=== PATIENT | male | born 1940 | race Caucasian/White ===

== ENCOUNTER 2019-04-22 12:52 | Outpatient (CLI) | payer OTHER, SELFPAY ==
[2019-04-22 13:28] LABS: Abs Immature Grans 0.01 k/cumm (0.0-0.09); Absolute Eosinophil Count 0.69 k/cumm (0.0-0.7); Absolute Lymphocyte Count 1.82 k/cumm (1.2-3.4); Absolute Monocyte Count 0.57 k/cumm (0.11-0.7); Absolute Neutrophil Count 3.48 k/cumm (1.2-6.7); Basophils % 1.5; Eosinophils % 10.3; HCT 43.6 % (40.0-50.0); HGB 14.7 g/dL (13.5-17.5); Immature Grans % 0.1 %; Lymphocytes % 27.3; Mean Corp. HGB Concentration 33.7 g/dL (32.0-36.0); Mean Corpuscular Hemoglobin 33.5 pg (27.0-33.0); Mean Corpuscular Volume 99.3 fL (80-95); Mean Platelet Volume 10.2 fL (8.0-11.0); Monocytes % 8.5; Neutrophils % 52.3; Platelet Count 248 x1000/uL (130-400); RBC 4.39 m/cumm (4.50-6.00); RBC Distribution Width 12.4 % (11.8-14.1); White Blood Cell Count 6.67 k/cumm (4.4-10.8)
[2019-04-22 14:15] LABS: Anion Gap 6.5 mmol/L (3-11); BUN 11 mg/dL (7-18); CO2 28.5 mmol/L (21.0-32.0); Calcium 8.8 mg/dL (8.5-10.1); Chloride 101 mmol/L (98-107); Glucose 79 mg/dL (74-106); Potassium 3.7 mmol/L (3.5-5.1); Sodium 136 mmol/L (136-145)
== END 2019-04-22 13:12 ==
PROVIDERS: Visit Provider Neurological Surgery
DX: Z01.818 Encounter for other preprocedural examination (principal)
CPT/HCPCS: 36415; 80048; 85025

== ENCOUNTER 2019-11-10 08:39 | Outpatient (REF) | payer SELFPAY ==
[2019-11-10 10:52] LABS: Bilirubin Negative (Negative); Blood Negative (Negative); Clarity Sl Cloudy (Clear); Glucose Negative (Negative); Ketones Negative (Negative); Leukocyte Esterase Negative (Negative); Nitrite Negative (Negative); pH 7.5 (5-8)
== END 2019-11-10 08:59 ==
LOC: LBN 08:39
PROVIDERS: Visit Provider Family Medicine
DX: N40.0 Benign prostatic hyperplasia without lower urinary tract symptoms (principal); R82.998 Other abnormal findings in urine
CPT/HCPCS: 81003; 87086

== ENCOUNTER 2019-11-15 14:11 | Outpatient (REF) | payer SELFPAY ==
[2019-11-16 18:37] LABS: COVID-19 RT-PCR Result Not Detected ((See Note))
== END 2019-11-15 14:31 ==
LOC: LBN 14:11
PROVIDERS: PCP Family Medicine; Visit Provider Nurse Practitioner Adult Health
DX: Z11.59 Encounter for screening for other viral diseases (principal)
CPT/HCPCS: U0003

== ENCOUNTER 2019-11-21 16:33 | Outpatient (REF) | payer SELFPAY ==
[2019-11-23 16:26] LABS: COVID-19 RT-PCR Result Not Detected ((See Note))
== END 2019-11-21 16:53 ==
LOC: LBN 16:33
PROVIDERS: PCP Family Medicine; Visit Provider Nurse Practitioner Adult Health
DX: Z11.59 Encounter for screening for other viral diseases (principal)
CPT/HCPCS: U0003

== ENCOUNTER 2020-02-23 12:13 | Outpatient (REF) | payer OTHER, SELFPAY ==
[2020-02-23 12:58] LABS: Abs Immature Grans 0.01 10^3/uL (0.0-0.06); Absolute Basophil Count 0.09 10^3/uL (0.0-0.2); Absolute Eosinophil Count 0.82 10^3/uL (0.0-0.7); Absolute Lymphocyte Count 2.69 10^3/uL (1.2-3.4); Absolute Monocyte Count 0.48 10^3/uL (0.1-0.8); Absolute Neutrophil Count 3.35 10^3/uL (1.2-6.7); Basophils % 1.2; HCT 42.7 % (40.0-50.0); Immature Grans % 0.1; Lymphocytes % 36.2; MCH 33.3 pg (27.0-33.0); MCHC 32.8 % (32.0-36.0); MCV 101.7 fL (80-95); MPV 11.4 fL (8.0-11.0); Monocytes % 6.5; Nucleated RBC 0 %; Platelet Count 202 10^3/uL (130-400); RDW 12.5 % (11.8-14.1); WBC 7.44 10^3/uL (4.4-10.8)
[2020-02-23 13:01] LABS: Anion Gap 10.6 mmol/L (3-11); BUN 6 mg/dL (7-18); CO2 25.4 mmol/L (21.0-32.0); CREATININE 1.01 mg/dL (0.70-1.30); Chloride 105 mmol/L (98-107); Potassium 3.7 mmol/L (3.5-5.1); Sodium 141 mmol/L (136-145)
[2020-02-23 15:49] LABS: Bilirubin Negative (Negative); Blood Negative (Negative); Clarity Clear (Clear); Glucose Negative (Negative); Ketones Negative (Negative); Leukocyte Esterase Negative (Negative); Nitrite Negative (Negative); Specific Gravity 1.025 (1.005-1.025); Urobilinogen 0.2 EU/dL (Up TO 0.2); pH 6.5 (5-8)
[2020-02-23 16:11] LABS: Bacteria Negative HPF (Negative); C & S Indicated? C&S Done As Ordered; Crystals Negative HPF (Negative); Epithelial Cells Negative HPF (Negative); Mucus Heavy (Negative); RBC 0-2 HPF (0-2); WBC 0-2 HPF (0-5)
== END 2020-02-23 12:33 ==
LOC: LBN 12:13
PROVIDERS: PCP Family Medicine; Visit Provider Internal Medicine
DX: R33.9 Retention of urine, unspecified (principal); I10 Essential (primary) hypertension; I73.9 Peripheral vascular disease, unspecified; N40.0 Benign prostatic hyperplasia without lower urinary tract symptoms; K70.30 Alcoholic cirrhosis of liver without ascites
CPT/HCPCS: 80051; 84520; 81003; 81015; 82565; 85025; 87086

== ENCOUNTER 2020-03-15 15:14 | Outpatient (REF) | payer MEDICARE, SELFPAY ==
[2020-03-15 13:56] LABS: Abs Immature Grans 0.03 10^3/uL (0.0-0.06); Absolute Basophil Count 0.08 10^3/uL (0.0-0.2); Absolute Eosinophil Count 0.57 10^3/uL (0.0-0.7); Absolute Lymphocyte Count 1.97 10^3/uL (1.2-3.4); Absolute Monocyte Count 0.64 10^3/uL (0.1-0.8); Absolute Neutrophil Count 4.46 10^3/uL (1.2-6.7); Eosinophils % 7.4; HCT 41.1 % (40.0-50.0); HGB 13.6 g/dL (13.5-17.5); Immature Grans % 0.4; Lymphocytes % 25.4; MCH 33.4 pg (27.0-33.0); MCHC 33.1 % (32.0-36.0); MPV 11.2 fL (8.0-11.0); Monocytes % 8.3; Neutrophils % 57.5; Nucleated RBC 0 %; Platelet Count 181 10^3/uL (130-400); RBC 4.07 10^6/uL (4.36-5.78); RDW 12.7 % (11.8-14.1); RDW-SD 47.6 fL; WBC 7.75 10^3/uL (4.4-10.8)
[2020-03-15 14:15] LABS: Anion Gap 8.5 mmol/L (3-11); BUN 10 mg/dL (7-18); CO2 26.5 mmol/L (21.0-32.0); Chloride 102 mmol/L (98-107); Potassium 3.8 mmol/L (3.5-5.1); Sodium 137 mmol/L (136-145)
== END 2020-03-15 15:34 ==
LOC: LBN 15:14
PROVIDERS: PCP Family Medicine; Visit Provider Internal Medicine
DX: I10 Essential (primary) hypertension (principal); E78.5 Hyperlipidemia, unspecified; I73.9 Peripheral vascular disease, unspecified; J61 Pneumoconiosis due to asbestos and other mineral fibers
CPT/HCPCS: 80051; 84520; 82565; 85025

== ENCOUNTER 2020-03-31 12:24 | Outpatient (REF) | payer MEDICARE, SELFPAY ==
[2020-04-01 14:05] LABS: COVID-19 RT-PCR UVMMC Result Negative (Negative)
== END 2020-03-31 12:44 ==
LOC: LBN 12:24
PROVIDERS: PCP Family Medicine; Visit Provider Internal Medicine Gastroenterology
DX: Z11.59 Encounter for screening for other viral diseases (principal); Z01.818 Encounter for other preprocedural examination
CPT/HCPCS: U0003

== ENCOUNTER 2020-06-07 14:10 | Emergency (ER) | payer MEDICARE, OTHER, SELFPAY ==
[2020-06-07] VITALS (18 sets, daily range): BP systolic 121–139; BP diastolic 59–71; PULSE 65–93; RESP 14–23; TEMP 36.6–36.7; O2SAT 94–97
--- NOTE | 2020-06-07 14:00 | RT.EKG_ITS ---
APPROVED REPORT Exam: Resting ECG Patient Location: E HR:80 bpm ECG Measurements Heart Rate 80 AXIS NH 166 P 78 QRSd 97 QRS 65 QT 387 T 1 QTc 437 Conclusion Sinus rhythm...normal P axis, V-rate 60- 99 Atrial premature complexes...SV complexes w/ short R-R intvls. T wave inversion lead III. No STEMI. I have reviewed and interpreted ECG and agree with software generated interpretation.
--- NOTE | 2020-06-07 14:17 | ED.GENADUL_ITS ---
Discharge Plan Disposition Patient Disposition: HOME Condition: Stable Discharge Details Clinical Impression: Chest pain, Alcohol abuse Primary Care Provider: Jose Guadalupe Fernandes ED Provider: Kurtis Taylor Home Meds and New Rx's Prescriptions: New sucralfate [Carafate] 1 gram tablet 1 g PO BID 10 Days Qty: 20 RF: 0 Continued tramadol 50 MG tablet 50 mg PO BID PRNRF: 0 trazodone 100 MG tablet 300 mg PO HS RF: 0 amlodipine 10 MG tablet 10 mg PO DAILY RF: 0 omeprazole 20 MG capsule,delayed release(DR/EC) 40 mg PO DAILY RF: 0 docusate sodium [Colace] 100 MG capsule 100 mg PO TID RF: 0 folic acid 1 MG tablet 1 mg PO DAILY RF: 0 tamsulosin 0.4 mg Capsule 0.4 mg PO DAILY RF: 0 furosemide 20 mg tablet 20 mg PO DAILY RF: 0 albuterol sulfate 90 mcg/actuation Hfa Aerosol Inhaler 2 puff INHALATION QID PRNRF: 0 loratadine 10 mg Tablet 10 mg PO DAILY RF: 0 atorvastatin 10 MG tablet 10 mg PO DAILY RF: 0 aspirin [Children's Aspirin] 81 MG tablet,chewable 81 mg PO DAILY RF: 0 vitamin [id number] acid 1 EACH tablet, sublingual 1 tab PO DAILY RF: 0 multivitamin [Daily Multi-Vitamin] 1 EACH tablet 1 tab PO DAILY RF: 0 nitroglycerin [Nitrostat] 0.4 MG tablet, sublingual 0.4 mg Sublingual Q15MIN PRNQty: 21 RF: 0 lisinopril 10 MG tablet 10 mg PO DAILY RF: 0 Discharge Instructions Additional Instructions: Continue your efforts to decrease use of cigarillos and soda such as Pepsi. These both can irritate your esophagus. Avoid fatty, fried, spicy or tomato sauce-based foods. Please begin a trial of the medication and Carafate for 10 days, take with morning and evening meal. Continue your regular medications. Return to the ER for any acute concerns. Medical Decision Making <Rosario Almendarez DO - Last Filed: 06/07/20 15:19> 80-year-old male with a history of former alcohol abuse, GERD, hypertension, hyperlipidemia presents to the ED with a complaint of chest pain for the past few weeks, worse recently and now associated with dizziness. EKG on arrival notes a rate of 80, sinus, T wave inversion in lead III but no STEMI. Nondiagnostic. Vitals within normal limits. Patient has upper abdominal tenderness. History and presentation does not appear consistent with ACS. Differential diagnosis includes GI etiology, pneumonia. History and presentation not consistent with PE or dissection but considering patient's complaint of radiation of pain, will obtain a CTA chest and abdomen to rule out pneumonia, dissection, acute abdominal process. Will give a dose of morphine and Pepcid. Case endorsed to to follow-up on imaging results and plan for repeat troponin. If patient's symptoms are improving or resolved, and work-up negative, can discharge to home. Potassium 2.8, will replete. Magnesium 1.7 will replete. Trope negative. Lipase negative. Medical Records Medical records reviewed: Yes I reviewed the patient's medical records. Lab Data Lab results reviewed: Yes I reviewed the patient's lab results. ECG Data Attestation: I personally reviewed and interpreted this ECG (s) as follows: Interpretation: Rate of 80, sinus, T wave inversion in lead III. No acute ST elevation or depression. MA 166. QRS 97. QTc 437. <Kurtis Taylor MD - Last Filed: 06/07/20 18:13> Received signout from Dr. Almendarez. Please see her note regarding details of initial presentation, exam, plan of care. Patient's labs essentially reassuring, with the exception of hypokalemia and mild hypomagnesemia which were supplemented in the ED. Troponin negative. No acute findings in the chest on CT imaging. Note of chronic findings. Abdomen with note of cirrhotic liver nonobstructing kidney stones, collapsed penile prosthesis reservoir. See formal report. Patient improved. He was observed on a child care director with no further complaints. He was given Carafate as well. His repeat troponin was negative. I will start him on 10 days of Carafate and asked him to decrease use of cigarillos and Pepsi. We will ask emergency care attendant to arrange a follow-up for him with the [facility]. Lab Data Lab results reviewed: Yes I reviewed the patient's lab results. Labs: Laboratory Results - last 24 hr 06/07/20 06/07/20 06/07/20 14:30 14:30 14:30 WBC 9.36 RBC 4.29 L Hgb 14.3 Hct 41.4 MCV 96.5 H MCH 33.3 H MCHC 34.5 RDW 12.1 Plt Count 201 MPV 11.5 H Immature Gran % 0.3 Neutrophils % 59.9 Lymphocytes % 25.3 Monocytes % 7.9 Eosinophils % 5.7 Basophils % 0.9 Nucleated RBC % 0 Absolute Neutrophils 5.61 Absolute Lymphocytes 2.37 Absolute Monocytes 0.74 Absolute Eosinophils 0.53 Absolute Basophils 0.08 PT 10.0 INR 1.0 APTT 22.0 Sodium 141 Potassium 2.8 L* Chloride 106 Carbon Dioxide 27.5 Anion Gap 7.5 BUN 13 Creatinine 0.9 Estimated GFR/1.73 m2 >= 60.00 Glucose 103 Calcium 9.0 Magnesium 1.7 L Total Bilirubin 0.4 AST 16 ALT 25 Alkaline Phosphatase 118 H Troponin I < 0.05 Total Protein 7.1 Albumin 3.0 L Lipase 129 HPI <Rosario Almendarez DO - Last Filed: 06/07/20 15:19> General Mode of arrival: EMS . Date/Time Provider Initiated Documentation: 06/07/20 14:12 . Limitations to Documentation: no limitations . Information obtained by: patient . HPI Narrative: Patient is a 80-year-old male with a history of former alcohol abuse last drink over 6 weeks ago, GERD, hypertension, hyperlipidemia who presents to the ED with a complaint of anterior chest pain for the past few weeks, worse over the past 2 days and associated with dizziness. Patient states his anterior chest pain is aching and currently 7/10. He states the pain radiates to his neck and bilateral shoulders. He tomasz es any aggravating or alleviating factors. He also admits to chronic upper abdominal pain and states he has a history of cirrhosis. He states his last alcoholic drink was 6 weeks ago. He states he was visited by home health nurse today and told her about his chest pain and she called the primary care doctor who advised him to come to the ED for further evaluation. He denies any recent hospital admissions. He does also admit to a cough that is occasionally productive of yellow sputum. He denies any known fever, nausea, vomiting, diarrhea, back pain, urinary symptoms. Related Data Home Medications Medication Instructions Recorded Confirmed amlodipine 10 mg PO DAILY 10/25/14 06/07/20 omeprazole 40 mg PO DAILY 10/25/14 06/07/20 tramadol 50 mg PO BID PRN 10/25/14 02/24/16 trazodone 300 mg PO HS 10/25/14 06/07/20 docusate sodium [Colace] 100 mg PO TID cap 04/01/15 06/07/20 folic acid 1 mg PO DAILY tab 04/01/15 06/07/20 aspirin [Children's Aspirin] 81 mg PO DAILY 02/24/16 06/07/20 atorvastatin 10 mg PO DAILY 02/24/16 06/07/20 multivitamin [Daily Multi-Vitamin] 1 tab PO DAILY 02/24/16 06/07/20 vitamin [id number] acid 1 tab PO DAILY 02/24/16 06/07/20 nitroglycerin [Nitrostat] 0.4 mg SUBLINGUAL Q15MIN PRN #21 02/25/16 06/07/20 tab lisinopril 10 mg PO DAILY 04/13/17 06/07/20 albuterol sulfate 2 puff INHALATION QID PRN 06/07/20 06/07/20 furosemide 20 mg PO DAILY 06/07/20 06/07/20 loratadine 10 mg PO DAILY 06/07/20 06/07/20 sucralfate [Carafate] 1 g PO BID 10 Days #20 tab 06/07/20 tamsulosin 0.4 mg PO DAILY 06/07/20 06/07/20 Previous Rx's Medication Instructions Recorded docusate sodium [Colace] 100 mg PO TID cap 04/01/15 folic acid 1 mg PO DAILY tab 04/01/15 nitroglycerin [Nitrostat] 0.4 mg SUBLINGUAL Q15MIN PRN #21 02/25/16 tab sucralfate [Carafate] 1 g PO BID 10 Days #20 tab 06/07/20 Allergies Allergy/AdvReac Type Severity Reaction Status Date / Time No Known Allergies Allergy Verified 04/13/17 19:31 General Stated Complaint: Chest Pain EDITH: 2 Review of Systems <Rosario Almendarez DO - Last Filed: 06/07/20 15:19> All systems reviewed & are unremarkable except as noted in HPI and below Constitutional Constitutional: Reports as per HPI, Denies chills and Denies fever(s) Eyes Eyes: Denies blurry vision ENT Ears, Nose, Mouth, and Throat: Reports dizziness, Denies sore throat and Denies throat swelling Cardiovascular Cardiovascular: Reports chest pain and Denies dyspnea Respiratory Respiratory: Denies cough and Denies dyspnea Gastrointestinal Gastrointestinal: Reports abdominal pain, Denies diarrhea and Denies vomiting Genitourinary Genitourinary: Denies hematuria and Denies dysuria Musculoskeletal Musculoskeletal: Denies back pain and Denies numbness Integumentary/Breasts Skin/Breast: Denies lesions and Denies rash Neurologic Neurologic: Reports dizziness, Denies localized weakness and Denies numbness Allergic/Immunologic Allergic/Immunologic: Denies throat swelling PFSH <Rosario Almendarez DO - Last Filed: 06/07/20 15:19> Medical History (Updated 06/07/20 @ 14:53 by Rosario Almendarez DO) Alcohol abuse GERD (gastroesophageal reflux disease) HTN (hypertension) Hx of hyperlipidemia Surgical History (Updated 06/07/20 @ 14:23 by Rosario Almendarez DO) Fracture of right hip pinning Hx of cholecystectomy Social History Smoking/Tobacco Use Status: Current, status unknown Tobacco Type: cigars Smoking risk assessment performed?: Yes Alcohol Intake: current Alcohol Intake frequency: holidays/special occasions on ly Drug use: Never Substance use type: does not use Do you feel safe at home: Yes Do you feel safe in your relationship?: Yes Exam <Rosario Almendarez DO - Last Filed: 06/07/20 15:19> Const General: cooperative and no acute distress Orientation: alert, awake and oriented x3 HENMT Head: normal to inspection Face and sinus: normal facial exam Eyes General: appearance normal, both eyes and all related structures EOM: EOM intact bilaterally Neck Neck: normal visual inspection and No submandibular swelling Lymphatic: no lymphadenopathy noted Chest Chest: normal inspection of the chest and no tenderness Resp Effort & Inspection: normal respiratory effort and able to speak in complete sentences Auscultation: clear to auscultation bilaterally Cardio Rate: regular rate Rhythm: regular rhythm GI Inspection: normal to inspection Palpation: soft, not firm, not rigid and tender in the LUQ and in the RUQ Auscultation: normal bowel sounds Rectal Exam: visual inspection normal, normal sphincter tone and heme negative stool (brown, guiaic negative) Skin General skin exam: no rashes or lesions noted Neuro General: patient alert, patient awake and patient oriented x3 Cognition: normal cognition Speech: speech normal Motor: muscle tone normal throughout Sensory Exam: no sensory deficits noted Extrem General: normal to inspection, full ROM, capillary refill normal, no calf tenderness bilaterally and no edema Psych Appearance: grossly normal Mental Status: mental status grossly normal Speech and Movement: speech and movement normal Affect: normal affect Course <Rosario Almendarez DO - Last Filed: 06/07/20 15:19> Vital Signs Vital signs: Vital Signs Temperature 98.1 F 06/07/20 14:10 Pulse 84 06/07/20 14:10 Respiratory Rate 14 06/07/20 14:10 Blood Pressure 136/62 06/07/20 14:10 Pulse Oximetry 97 06/07/20 14:10 Temperature 98.1 F 06/07/20 14:10 Temperature Source Skin 06/07/20 14:10 Pulse 84 06/07/20 14:10 Respiratory Rate 14 06/07/20 14:10 Blood Pressure 136/62 06/07/20 14:10 Blood Pressure Position Sitting 06/07/20 14:10 Pulse Oximetry 97 06/07/20 14:10 Oxygen Delivery Method Room Air 06/07/20 14:10 Oxygen Flow Rate 0 06/07/20 14:10 Pain Level 7 06/07/20 14:10 Sign Out <Rosario Almendarez DO - Last Filed: 06/07/20 15:19> Sign Out Data: Sign Out Comment: Follow-up on CTA chest and abdomen and repeat troponin. If symptoms resolved or improving and work-up negative, can consider discharge to home. Last updated by Rosario Almendarez DO at 06/07/20 14:56
--- NOTE | 2020-06-07 14:30 | DI.CT_ITS ---
EXAM: CT THORAX ABD/PEL CTA CLINICAL HISTORY: ant chest pain, rad to neck, upper abd pain. TECHNIQUE: Imaging Protocol: Axial computed tomography images with coronal and sagittal reformatted images were created and reviewed CONTRAST MATERIAL: Intravenous: Omnipaque 350 Contrast volume:100 ml Oral: None COMPARISON: Uppermost images of abdominal CT scan 02/15/2012 reviewed FINDINGS: CHEST: LUNGS: There are multiple bilateral calcified pleural plaques. Some infiltrate is noted in the lingu lar segment of the left lung, possibly with chronic component. May be an element of rounded atelecta sis at this level. Mild benign-appearing increased markings are also noted in the posterior aspect o f the left lower lobe. No pleural effusions.. MEDIASTINUM: Small lymph nodes in the hilar regions noted. No subcarinal adenopathy. No axillary ad enopathy. Mild bilateral gynecomastia. CARDIAC: Heart size is normal. There is no pericardial effusion. AORTA: Caliber of the thoracic aorta is within normal limits.There is no evidence of aortic dissectio n. ABDOMEN: There is no ascites. LIVER: Cirrhotic appearance. No discrete focal mass. Pneumobilia. GALLBLADDER/BILIARY: Not seen and presumed to be surgically absent. CBD is not dilated. PANCREAS: No evidence of pancreatic mass nor dilatation of the pancreatic duct. SPLEEN: Spleen is not enlarged. There are no intrasplenic lesions. Splenic and portal veins are moreno nt. ADRENALS: There is abnormal thickening of both adrenal glands, consistent with bilateral hyperplasia. KIDNEYS: Multiple bilateral cysts, more prominent and numerous in the left kidney. The largest cyst is in the left kidney and measures 4 by 3.5 cm. There also nonobstructive renal calculi. No hydrone phrosis nor hydroureter. No calculi in the urinary bladder.. ABDOMINAL AORTA: The abdominal aorta is significant atherosclerotic but not dilated. There is diseas e at the origin of the celiac and superior mesenteric and renal arteries. The inferior mesenteric ar amalia is not included. Atherosclerotic involvement of the iliac arteries also evident as well as the common femoral arteries. LYMPH NODES: There is no retroperitoneal nor para-aortic adenopathy. No obvious mesenteric masses. ABDOMINAL WALL/GI: No evidence of significant anterior abdominal wall hernia. No bowel obstruction. PELVIS: LYMPH NODES: There is no intrapelvic nor inguinal adenopathy. GI: No evidence of appendicitis.No evidence of sigmoid diverticulitis. URINARY BLADDER: No calculi nor masses evident REPRODUCTIVE: Prostate size upper normal. There is a left-sided pelvic collapsed penile prosthesis r eservoir which contains air. OSSEOUS: Multilevel lumbar fusion. Left hip hardware. No fractures. No osseous lesions. IMPRESSION: 1. Multiple calcified pleural plaques are noted as is some infiltrate and scarring in the left lung l ingular segment. No pleural effusions. Correlation with prior asbestos exposure related disease rec ommended. Small bilateral hilar lymph nodes. No gross lymphadenopathy in the chest. 2. Advanced atherosclerotic disease of abdominal aorta and aortoiliac segments. No significant aneur ysms. 3. Cirrhotic liver. No obvious hepatic mass nor ascites. 4. Gallbladder is collapsed or surgically absent. Biliary tree is not dilated 5. Bilateral adrenal hyperplasia. 6. Multiple renal cysts and nonobstructive calculi evident in the kidneys. No hydronephrosis. 7. Collapsed penile prosthesis reservoir noted in the left lower quadrant which contains gas. Recom mend urology follow-up. RADIATION DOSE DELIVERED: 1,131.45mGy.cm Total DLP DATA REPOSITORY: All CT scans at this facility are submitted to the National Radiology Data Registry (NRDR) Dose Index Registry (DIR) with the [employer] (ACR). RADIATION OPTIMIZATION: All CT scans at this facility use at least one of these dose optimization te chniques: automated exposure control; mA and/or kV adjustment per patient size (includes targeted exa ms where dose is matched to clinical indication); or iterative reconstruction.
[2020-06-07] MEDS: Normal Saline 500 ML IV (14:45)
[2020-06-07 14:51] LABS: Abs Immature Grans 0.03 10^3/uL (0.0-0.06); Absolute Basophil Count 0.08 10^3/uL (0.0-0.2); Absolute Eosinophil Count 0.53 10^3/uL (0.0-0.7); Absolute Lymphocyte Count 2.37 10^3/uL (1.2-3.4); Absolute Monocyte Count 0.74 10^3/uL (0.1-0.8); Absolute Neutrophil Count 5.61 10^3/uL (1.2-6.7); Basophils % 0.9; Eosinophils % 5.7; HCT 41.4 % (40.0-50.0); HGB 14.3 g/dL (13.5-17.5); Immature Grans % 0.3; Lymphocytes % 25.3; MCH 33.3 pg (27.0-33.0); MCHC 34.5 % (32.0-36.0); MCV 96.5 fL (80-95); MPV 11.5 fL (8.0-11.0); Monocytes % 7.9; Neutrophils % 59.9; Nucleated RBC 0 %; Platelet Count 201 10^3/uL (130-400); RBC 4.29 10^6/uL (4.36-5.78); RDW 12.1 % (11.8-14.1); RDW-SD 43.4 fL; WBC 9.36 10^3/uL (4.4-10.8)
--- NOTE | 2020-06-07 15:00 | RT.EKG_ITS ---
APPROVED REPORT Exam: Resting ECG Patient Location: E HR:73 bpm ECG Measurements Heart Rate 73 AXIS DC 160 P 56 QRSd 101 QRS 65 QT 411 T 42 QTc 453 Conclusion Sinus rhythm. No ST elevation
[2020-06-07] MEDS: FAMOTIDINE 20 MG/50 ML BAG 200 MG IVPB (15:06)
[2020-06-07 15:07] LABS: ALT 25 U/L (16-63); AST 16 U/L (15-37); Alkaline Phosphatase 118 U/L (46-116); Anion Gap 7.5 mmol/L (3-11); BUN 13 mg/dL (7-18); Bilirubin, Total 0.4 mg/dL (0.2-1.0); CO2 27.5 mmol/L (21.0-32.0); CREATININE 0.9 mg/dL (0.70-1.30); Chloride 106 mmol/L (98-107); Glucose 103 mg/dL (74-106); Lipase 129 U/L (73-393); Magnesium 1.7 mg/dL (1.8-2.4); Sodium 141 mmol/L (136-145); Total Protein 7.1 g/dL (6.4-8.2)
[2020-06-07 15:15] LABS: Potassium 2.8 mmol/L (3.5-5.1); Troponin I < 0.05 ng/mL (<0.06)
[2020-06-07] MEDS: MAGNESIUM SULFATE 1 GM/100 ML BAG IVPB (15:26)
[2020-06-07] MEDS: POTASSIUM CHLORIDE 20 MEQ/100 ML BAG 50 MEQ IVPB (15:27)
[2020-06-07] MEDS: Potassium Chloride Liquid 20 MEQ PKT PO (15:35)
--- NOTE | 2020-06-07 16:59 | DI.VRAD_ITS ---
PROCEDURE INFORMATION: Exam: CT Angiography Chest With Contrast Exam date and time: 06/07/2020 3:58 PM Age: 80 years old Clinical indication: Other: Cp, concern for disection; Shortness of breath TECHNIQUE: Imaging protocol: Computed tomographic angiography of the chest with contrast. 3D rendering (Not supervised by radiologist): MIP and/or 3D reconstructed images were created by the technologist. Contrast material: OMNI 350; Contrast volume: 100 ml; Contrast route: INTRAVENOUS (IV); COMPARISON: CR CHEST 2 VIEWS PA,LAT 04/13/2017 8:55 PM FINDINGS: Pulmonary arteries: Normal. No pulmonary emboli. Aorta: No aortic aneurysm. No aortic dissection. Lungs: Scarring left upper lobe and lingula. Pleural spaces: Bulky bilateral calcified pleural plaques. Heart: Diffuse vascular calcifications including coronary artery calcifications Lymph nodes: . Prominent right hilar lymph nodes. 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 Multiple old bilateral rib fractures. Soft tissues: Unremarkable. IMPRESSION: 1. No acute findings in the chest. No aortic dissection. 2. Bulky bilateral calcified pleural plaques. PROCEDURE INFORMATION: Exam: CT Angiography Abdomen and Pelvis With Contrast, GI Bleeding Exam date and time: 06/07/2020 3:58 PM Age: 80 years old Clinical indication: Other: Cp, concern for disection; Shortness of breath TECHNIQUE: Imaging protocol: Computed tomographic angiography of the abdomen and pelvis with contrast. 3D rendering (Not supervised by radiologist): MIP and/or 3D reconstructed images were created by the technologist. Contrast material: OMNI 350; Contrast volume: 100 ml; Contrast route: INTRAVENOUS (IV); COMPARISON: CR CHEST 2 VIEWS PA,LAT 04/13/2017 8:55 PM FINDINGS: Marked diffuse irregular calcified atheromatous disease Aorta: No aortic aneurysm. No aortic dissection. Celiac trunk and mesenteric arteries: No occlusion or significant stenosis. Renal arteries: No occlusion or significant stenosis. Right iliac arteries: No occlusion or significant stenosis. Left iliac arteries: No occlusion or significant stenosis. Other veins: Diffuse vascular calcifications. No aneurysm identified. No evidence of dissection. Liver: Fatty liver with a cirrhotic configuration. Gallbladder and bile ducts: Unremarkable. No calcified stones. No ductal dilation. Pancreas: Cholecystectomy. No ductal dilation. Spleen: Unremarkable. No splenomegaly. Adrenal glands: Benign appearing thickening of the bilateral adrenal glands. Kidneys and ureters: Multiple water density lesions in both kidneys. These have an appearance consistent with benign cysts. 5 mm nonobstructing stone left kidney. 5 mm nonobstructing stone lower pole right kidney. Stomach and bowel: Unremarkable. No active gastrointestinal bleeding. No obstruction. No mucosal thickening. Appendix: No evidence of appendicitis. Intraperitoneal space: See Reproductive finding. Lymph nodes: Unremarkable. No enlarged lymph nodes. Urinary bladder: Distended urinary bladder. Reproductive: Penile prosthesis. Collapsed reservoir containing gas in the left lower quadrant. Correlate with urologic history. Prostatic enlargement. Bones/joints: Posterior beena and pedicle screw fixation of L4 and L5. Metallic bone cage at the L4-L5 interspace. Degenerative arthritis in the lumbar spine and pelvis. Internal fixation proximal left femur. Soft tissues: Unremarkable. IMPRESSION: 1. Marked irregular atheromatous disease without evidence of aneurysm or dissection. 2. Cirrhotic liver. 3. Benign appearing thickening of the bilateral adrenal glands, right worse than left. 4. Nonobstructing stones both kidneys 5. Collapsed reservoir penile prosthesis left lower quadrant containing gas. Recommend urologic follow-up. Dictated and Authenticated by: Radha Miguel MD. Ordering:FROY Ponce MD
[2020-06-07 18:04] LABS: Troponin I < 0.05 ng/mL (<0.06)
[2020-06-07] MEDS: Sucralfate 1 GM TAB PO (18:06)
== END 2020-06-07 18:43 | disposition home or self-care (01) ==
PROVIDERS: Physician Assistant; Emergency Provider Emergency Medicine; PCP Family Medicine
DX: R07.9 Chest pain, unspecified (principal); F10.11 Alcohol abuse, in remission; E87.6 Hypokalemia; E83.42 Hypomagnesemia
CPT/HCPCS: 71275; 74177; 80053; 83690; 93005; 96361; 96365; 96366; 96367; 96368; 96375; 99284; 83735; 84484; 85025; 85610; 85730; 93010; J3475; J3480

== ENCOUNTER 2020-07-08 19:24 | Inpatient (IN) | payer OTHER, SELFPAY ==
[2020-07-08] VITALS (21 sets, daily range): BP systolic 89–145; BP diastolic 54–84; PULSE 70–101; RESP 15–25; TEMP 36.4; O2SAT 93–97
--- NOTE | 2020-07-08 19:30 | RT.EKG_ITS ---
APPROVED REPORT Exam: Resting ECG Patient Location: E HR:77 bpm ECG Measurements Heart Rate 77 AXIS SC 171 P 86 QRSd 97 QRS 59 QT 398 T 20 QTc 446 Conclusion Sinus rhythm...normal P axis, V-rate 60- 99 Atrial premature complex...SV complex w/ short R-R interval I have reviewed and interpreted ECG and agree with software generated interpretation.
--- NOTE | 2020-07-08 19:45 | DI.CT_ITS ---
EXAM: CT BRAIN NECK CTA CLINICAL HISTORY: dizziness, paresthesias. TECHNIQUE: Imaging Protocol: Axial CT angiography was performed with multi-slice acquisition and mu lti-planar and/or 3D reconstructions. CONTRAST MATERIAL: Intravenous: Omnipaque 350 Contrast volume:structured data in ml COMPARISON: CT CT THORAX ABD/PEL CTA from 06/07/2020 FINDINGS: CT angiography of the cervical cranial region was performed according to the usual protocol with intr avenous infusion of 85 cc of Visipaque 320.. Initial noncontrast scanning of the head is unremarkable. Visualized lung apices are clear. Visualized portions of thoracic aorta and pulmonary arterial circul ation are unremarkable. There is no evidence of a cervical mass or adenopathy. The tracheal laryngeal structures appear intact. The common carotid arteries show no significant stenosis on either side. Right internal carotid artery is nearly occluded at its origin with a greater than 90 percent luminal diameter stenosis. The left internal carotid artery shows approximately to 50-70 percent luminal di ameter stenosis at its origin. The vertebral arteries are unremarkable in appearance in the cervical region with no evidence of aneu rysm, stenosis, or dissection. The intracranial portion of the left internal carotid artery shows wall calcification but no signific ant stenosis. On the right, the internal carotid artery shows wall calcification, particularly in it s cavernous portion, and there is estimated 50-70 percent luminal diameter stenosis of the distal cav ernous portion of the internal carotid artery on the right. The intracranial vertebral circulation is left dominant. There is mild vertebral artery wall calcifi cation bilaterally without evidence of significant stenosis. Basilar artery is unremarkable in appea ming. No aneurysm identified in the region of the [id number]. The anterior, middle, and posterior cer ebral arteries and major branches appear intact with no evidence of aneurysm, stenosis, or dissection . No enhancing brain lesion identified. 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 Additional stenosis of the distal cavernous portion of the internal carotid artery on the right, 50-70 percent luminal diameter stenosis. Estimated 50-70 percent luminal diameter stenosis left internal carotid artery origin. RADIATION DOSE DELIVERED: 2,183.74mGy.cmTotal DLP 2,183.74mGy.cm Total DLP DATA REPOSITORY: All CT scans at this facility are submitted to the National Radiology Data Registry (NRDR) Dose Index Registry (DIR) with the [employer] (ACR). RADIATION OPTIMIZATION: All CT scans at this facility use at least one of these dose optimization te chniques: automated exposure control; mA and/or kV adjustment per patient size (includes targeted exa ms where dose is matched to clinical indication); or iterative reconstruction.
--- NOTE | 2020-07-08 20:00 | DI.RAD_ITS ---
EXAM: XR CHEST 2V PA LATERAL CLINICAL HISTORY: weakness TECHNIQUE: COMPARISON: CR CHEST 2 VIEWS PA,LAT from 04/13/2017 FINDINGS: Note is again made of previously noted numerous bilateral pleural plaques consistent with prior asbes tos exposure. No acute change in appearance of the lungs in comparison examination of March 2017. Cardiac size is at the upper limits of normal. No pleural effusion. IMPRESSION: No evidence of acute change. RADIATION DOSE DELIVERED: Total DLP
--- NOTE | 2020-07-08 20:13 | ED.GENADUL_ITS ---
Discharge Plan Discharge Details Chief Complaint: Dizzy/Sync Admit Date/Time: 07/08/20 23:09 Admit Provider: Jenny Dowd Attending Provider: Jenny Dowd Primary Care Provider: Jose Guadalupe Fernandes ED Provider: Yoanna Oconnor Medical Decision Making Patient is alert, oriented, of decisional capacity, quite pleasant in demeanor He is unable to stand and ambulate unassisted, he reports persistent dizziness Does report that he stopped drinking alcohol approximately 2 months ago. Prior to that he was a significant alcoholic Given negative CTA for acute pathology, he does have a right-sided internal carotid significant stenosis with which I discussed with Dr. Gerber, neurology at [facility] and he declines need for emergent intervention Patient will be admitted for further evaluation and observation with possible MRI discretion of the admitting hospitalist He is agreeable to admission at this time Dr. Talavera has accepted patient for admission Magnesium 1.6, will be supplemented Potassium of 3.3, supplemented, 81 mg of aspirin applied Differential Diagnosis Differential Diagnosis: CVA, TIA, electrolyte abnormality, Warnicke's encephalopathy Medical Records Medical records reviewed: Yes I reviewed the patient's medical records. Lab Data Lab results reviewed: Yes I reviewed the patient's lab results. HPI This 72-year-old gentleman with history of pancytopenia, hyponatremia, hypomagnesemia, COPD, community-acquired pneumonia, presents with dizziness whic h started 4 days ago. Patient states that worse in the morning and persistent throughout the day. He states that he feels disequilibrium and having difficulty ambulating secondary to dizziness. He states that today he was unable to ambulate independently even with his walker which typically works well as an assistive device. He denies any falls or injuries. He stopped drinking alcohol 2 months ago. He also states that he has peripheral neuropathy and he feels as though this was worsening. He denies any headache, chest pain, shortness of breath. General Date/Time Provider Initiated Documentation: 07/08/20 19:40 . Related Data Home Medications Medication Instructions Recorded Confirmed amlodipine 10 mg PO DAILY 10/25/14 07/08/20 omeprazole 40 mg PO DAILY 10/25/14 07/08/20 tramadol 50 mg PO BID PRN 10/25/14 07/08/20 trazodone 300 mg PO HS 10/25/14 07/08/20 docusate sodium [Colace] 100 mg PO TID cap 04/01/15 07/08/20 folic acid 1 mg PO DAILY tab 04/01/15 07/08/20 aspirin [Children's Aspirin] 81 mg PO DAILY 02/24/16 07/08/20 atorvastatin 10 mg PO DAILY 02/24/16 07/08/20 multivitamin [Daily Multi-Vitamin] 1 tab PO DAILY 02/24/16 07/08/20 vitamin K77-[id number] acid 1 tab PO DAILY 02/24/16 06/07/20 nitroglycerin [Nitrostat] 0.4 mg SUBLINGUAL Q15MIN PRN #21 02/25/16 07/08/20 tab lisinopril 10 mg PO DAILY 04/13/17 07/08/20 albuterol sulfate 2 puff INHALATION QID PRN 06/07/20 07/08/20 furosemide 20 mg PO DAILY 06/07/20 07/08/20 loratadine 10 mg PO DAILY 06/07/20 07/08/20 tamsulosin 0.4 mg PO DAILY 06/07/20 07/08/20 Previous Rx's Medication Instructions Recorded docusate sodium [Colace] 100 mg PO TID cap 04/01/15 folic acid 1 mg PO DAILY tab 04/01/15 nitroglycerin [Nitrostat] 0.4 mg SUBLINGUAL Q15MIN PRN #21 02/25/16 tab Allergies Allergy/AdvReac Type Severity Reaction Status Date / Time No Known Allergies Allergy Verified 07/08/20 20:45 General Stated Complaint: Dizzy/Sync EDITH: 2 Review of Systems Narrative: Review of systems obtained x7 aside from where indicated in HPI [facility] Medical History (Updated 06/07/20 @ 14:53 by Rosario Almendarez DO) Alcohol abuse GERD (gastroesophageal reflux disease) HTN (hypertension) Hx of hyperlipidemia Surgical History (Updated 06/07/20 @ 14:23 by Rosario Almendarez DO) Fracture of right hip pinning Hx of cholecystectomy Social History Smoking/Tobacco Use Status: Current, status unknown Tobacco Type: cigars Smoking risk assessment performed?: Yes Alcohol Intake: current Alcohol Intake frequency: holidays/special occasions only Drug use: Never Substance use type: does not use Do you feel safe at home: Yes Do you feel safe in your relationship?: Yes Exam Const General: cooperative Orientation: alert and oriented x3 HENMT Mouth: oral mucosae normal Eyes Pupils: PERRL Other: horizontal nystagmus Resp Effort & Inspection: normal respiratory effort Auscultation: clear to auscultation bilaterally Cardio Rate: regular rate Rhythm: regular rhythm GI Other: Nontender abdominal exam Skin General skin exam: no rashes or lesions noted Neuro General: patient alert and patient oriented x3 Cranial Nerves: PERRL and tongue midline Cognition: normal cognition Speech: speech normal Other: Negative [id number], negative heel michele, negative pronator drift Course Vital Signs Vital signs: Vital Signs Temperature 36.4 C L 07/08/20 19:37 Pulse 78 07/08/20 19:37 Respiratory Rate 16 07/08/20 19:37 Blood Pressure 133/61 07/08/20 19:37 Pulse Oximetry 97 07/08/20 19:37 Temperature 36.4 C L 07/08/20 19:37 Temperature Source Skin 07/08/20 19:37 Pulse 78 07/08/20 19:37 Respiratory Rate 15 07/08/20 19:50 Respiratory Effort Non-Labored 07/08/20 19:52 Respiratory Depth Normal 07/08/20 19:50 Respiratory Pattern Normal 07/08/20 19:50 Blood Pressure 133/61 07/08/20 19:37 Blood Pressure Position Sitting 07/08/20 19:37 Pulse Oximetry 97 07/08/20 19:37 Oxygen Delivery Method Room Air 07/08/20 19:37 Oxygen Flow Rate 0 07/08/20 19:37 Pain Level 0 07/08/20 19:37
[2020-07-08 20:15] LABS: Abs Immature Grans 0.01 10^3/uL (0.0-0.06); Absolute Basophil Count 0.09 10^3/uL (0.0-0.2); Absolute Eosinophil Count 0.72 10^3/uL (0.0-0.7); Absolute Lymphocyte Count 2.16 10^3/uL (1.2-3.4); Absolute Monocyte Count 0.62 10^3/uL (0.1-0.8); Absolute Neutrophil Count 3.71 10^3/uL (1.2-6.7); Basophils % 1.2; Eosinophils % 9.8; HGB 12.9 g/dL (13.5-17.5); Immature Grans % 0.1; Lymphocytes % 29.5; MCH 33.9 pg (27.0-33.0); MCHC 33.9 % (32.0-36.0); MCV 99.7 fL (80-95); MPV 11.5 fL (8.0-11.0); Monocytes % 8.5; Neutrophils % 50.9; Nucleated RBC 0 %; Platelet Count 181 10^3/uL (130-400); RBC 3.81 10^6/uL (4.36-5.78); RDW 12.2 % (11.8-14.1); RDW-SD 44.9 fL; WBC 7.31 10^3/uL (4.4-10.8)
[2020-07-08 20:29] LABS: ALT 23 U/L (16-63); AST 14 U/L (15-37); Albumin 3.1 g/dL (3.4-5.0); Alkaline Phosphatase 123 U/L (46-116); Anion Gap 8.4 mmol/L (3-11); BUN 11 mg/dL (7-18); Bilirubin, Total 0.3 mg/dL (0.2-1.0); CO2 27.6 mmol/L (21.0-32.0); CREATININE 0.9 mg/dL (0.70-1.30); Calcium 8.6 mg/dL (8.5-10.1); Chloride 105 mmol/L (98-107); Glucose 111 mg/dL (74-106); Magnesium 1.6 mg/dL (1.8-2.4); Potassium 3.3 mmol/L (3.5-5.1); Sodium 141 mmol/L (136-145); Total Protein 6.9 g/dL (6.4-8.2)
[2020-07-08 20:30] LABS: Troponin I < 0.05 ng/mL (<0.06)
[2020-07-08 20:48] LABS: Bilirubin Negative (Negative); Blood Negative (Negative); Clarity Clear (Clear); Glucose Negative (Negative); Ketones Negative (Negative); Leukocyte Esterase Negative (Negative); Nitrite Negative (Negative); Specific Gravity <= 1.005 (1.005-1.025); Urobilinogen 0.2 EU/dL (Up TO 0.2); pH 5.5 (5-8)
[2020-07-08] MEDS: Normal Saline - Diluent 50 ML VIAL IV (21:00)
[2020-07-08] MEDS: POTASSIUM CHLORIDE 20 MEQ, POTASSIUM CHLORIDE 10 MEQ 30 MEQ PO (21:20)
[2020-07-08] MEDS: Meclizine 25 MG TAB PO (21:20)
--- NOTE | 2020-07-08 21:24 | DI.VRAD_ITS ---
PROCEDURE INFORMATION: Exam: XR Chest Exam date and time: 07/08/2020 9:07 PM Age: 80 years old Clinical indication: Cough TECHNIQUE: Imaging protocol: XR of the chest. Views: 2 views. COMPARISON: CT THORAX ABD/PEL CTA 06/07/2020 3:55 PM FINDINGS: Lungs: No acute infiltrates are identified. There is no pulmonary vascular congestion. Again noted is mild central peribronchial thickening which could reflect a history of bronchitis. Pleural spaces: Again noted are multiple calcified pleural plaques suggesting history of prior asbestos exposure. There are no layering pleural effusions. Heart/Mediastinum: Heart size is not clearly enlarged. Bones/joints: Again noted is marked hyperostosis throughout the thoracic spine. IMPRESSION: 1. Calcified pleural plaques, suggesting history of asbestos exposure. 2. No acute infiltrates or effusions. Dictated and Authenticated by: Dontae Archuleta MD. Ordering:RICKI Lenz MD
--- NOTE | 2020-07-08 21:32 | DI.VRAD_ITS ---
PROCEDURE INFORMATION: Exam: CT Angiography Head With Contrast Exam date and time: 07/08/2020 7:56 PM Age: 80 years old Clinical indication: Pain; Headache TECHNIQUE: Imaging protocol: Computed tomography angiography of the head with intravenous contrast. 3D rendering (Not supervised by radiologist): MIP and/or 3D reconstructed images were created by the technologist. COMPARISON: CT HEAD AND CSPINE W/O CONTRAST 03/30/2015 10:51 PM FINDINGS: ANTERIOR CIRCULATION: Right internal carotid artery: Unremarkable. Intracranial segment is patent with no significant stenosis. No aneurysm. Right middle cerebral artery: Unremarkable. No occlusion or significant stenosis. No aneurysm. Right anterior cerebral artery: Hypoplastic right A1 segment. Left internal carotid artery: Unremarkable. Intracranial segment is patent with no significant stenosis. No aneurysm. Left middle cerebral artery: Unremarkable. No occlusion or significant stenosis. No aneurysm. Left anterior cerebral artery: Unremarkable. No occlusion or significant stenosis. No aneurysm. POSTERIOR CIRCULATION: Right vertebral artery: Hypoplastic. Left vertebral artery: Unremarkable. No occlusion or significant stenosis. No aneurysm. Basilar artery: Unremarkable. No occlusion or significant stenosis. No aneurysm. Right posterior cerebral artery: Unremarkable. No occlusion or significant stenosis. No aneurysm. Left posterior cerebral artery: Unremarkable. No occlusion or significant stenosis. No aneurysm. Brain: There is moderate diffuse cerebral atrophy present, consistent with this patient's age. There is mild diffuse heterogeneity of the white matter attenuation, consistent with chronic white matter ischemic changes. No intracranial hemorrhage, midline shift, or mass effect. Cerebral ventricles: No ventriculomegaly. Paranasal sinuses: Chronic paranasal sinus disease. Nasal cavity: Leftward nasal septal deviation and spur. Bones/joints: Unremarkable. No acute fracture. Soft tissues: Unremarkable. IMPRESSION: 1. Hypoplastic right A1 segment, a normal variant. 2. Hypoplastic distal right vertebral artery normal variant. PROCEDURE INFORMATION: Exam: CT Angiography Neck With Contrast Exam date and time: 07/08/2020 7:56 PM Age: 80 years old Clinical indication: Pain; Headache TECHNIQUE: Imaging protocol: Computed tomography angiography of the neck with contrast. 3D rendering (Not supervised by radiologist): MIP and/or 3D reconstructed images were created by the technologist. COMPARISON: CT HEAD AND CSPINE W/O CONTRAST 03/30/2015 10:51 PM FINDINGS: Right common carotid artery: No stenosis. No dissection or occlusion. Right internal carotid artery: Calcified atherosclerotic disease of the right carotid bulb resulting in near complete occlusion right internal carotid artery origin. Right external carotid artery: No occlusion or stenosis of the origin. Right vertebral artery: Hypoplastic right vertebral artery. Left common carotid artery: No stenosis. No dissection or occlusion. Left internal carotid artery: Calcified atherosclerotic disease of the left carotid bulb resulting in moderate stenosis of the left internal carotid artery origin. Left external carotid artery: No occlusion or stenosis of the origin. Left vertebral artery: Scattered calcified atherosclerotic plaque of the left vertebral artery with moderate stenosis at the origin. Bones/joints: Moderate C6-C7 degenerative disc disease. Soft tissues: Normal. No significant soft tissue swelling. IMPRESSION: 1. Calcified atherosclerotic disease with near complete occlusion of the right internal carotid artery origin and moderate stenosis of the left internal carotid artery origin. 2. Moderate stenosis of left vertebral artery origin. 3. Hypoplasia of right vertebral artery. REFERENCES: NASCET CRITERIA. The degree of internal carotid artery stenosis is based on NASCET criteria. Normal is no stenosis. Mild is less than 50% stenosis. Moderate is 50-69% stenosis. Severe is 70% to 99% stenosis. Total occlusion is no detectable patent lumen. Dictated and Authenticated by: Tyler Hyman MD. Ordering:RICKI Lenz MD
[2020-07-08 23:05] LABS: Troponin I < 0.05 ng/mL (<0.06)
[2020-07-08 23:52] LABS: NT-proBNP 343 pg/mL (<300)
[2020-07-09] VITALS (11 sets, daily range): BP systolic 111–142; BP diastolic 50–73; PULSE 72–90; RESP 16–21; TEMP 36.4–37.1; O2SAT 90–95
[2020-07-09] MEDS: MAGNESIUM SULFATE 8.12 MEQ, MULTIVITAMIN 10 ML, THIAMINE 100 MG, FOLIC ACID 1 MG in Nor... 168.867 MG IV (01:19)
[2020-07-09] MEDS: Heparin 5,000 UNITS/ML VIAL 5000 UNITS SC ×2 (01:36→09:17)
[2020-07-09] MEDS: THIAMINE 500 MG in Normal Saline 100 ML 200 MG IVPB ×3 (01:37→17:10)
[2020-07-09] MEDS: Normal Saline Flush 10 ML SYR IVP (01:37)
--- NOTE | 2020-07-09 02:19 | W.PM.HP.N ---
Date of service: 07/09/20 Time of Service: 02:19 Assessment and Plan Assessment and plan (1) Dizziness: Status: Acute Assessment and plan: DDx: orthostatic hypotension is the most likely scenario. Also consider symptomatic carotid stenosis, Wernicke's, much less likely vertigo, Lyme disease. Side effect of medications is a possibility (on flomax, also was taking trazodone and ultram together). Monitor on tele. High dose thiamine (I cannot verify that he does not have nystagmus because the patient states he cannot follow my finger with his eyes despite my multiple attempts). Asa + statin. Check orthostatics, fasting lipid panel, B12, lyme/tick panel. Consult neuro (R internal carotid A stenosis) and obtain an MRI, but I do not think this is related to the patient's symptoms. Consult PT/OT Trial meclizine. (2) Stenosis of right internal carotid artery: Status: Acute Assessment and plan: As above - obtain MRI brain, neuro c/s. Doubt that this is related to his current sx. (3) Ataxia: Status: Acute Assessment and plan: As above. Neuropathy and muscle spasms are also some of his issues. Check b12 level. Prn valium. (4) H/O alcohol abuse: Status: Resolved Assessment and plan: In remission, per patient. Provide vitamins. Low threshold to stop monitoring on CIWA. Check B12/folate levels. High dose thiamine therapy. (5) Hypokalemia: Status: Acute Assessment and plan: Replete and recheck in am (6) Hypomagnesemia: Status: Acute Assessment and plan: Replete and recheck in am (7) DVT prophylaxis: Status: Acute Assessment and plan: SC heparin (8) Discharge planning issues: Status: Acute Assessment and plan: DNR/DNI History of Present Illness History of Present Illness Chief Complaint: dizziness, inability to ambulate Narrative: Mr Pratt is a 80 year old male w/ PMHx of prior EtOH abuse (states he completely stopped drinking 2 months ago), as well as h/o COPD, HTN, hyperlipidemia, who presented to [facility] ED c/o dizziness and inability to ambulate even with his usual walking. Symptoms started in the beginning of June, but got worse over the last 4 days. The patient specifically denied nausea/vomiting with the symptoms and states that the dizziness is worse when he is changing position from laying to sitting or sitting to standing. It does get a little better after waiting in that position for some time, but he still does not feel safe ambulating. Concurrently, he also noticed muscle spasms in his legs which have made it difficult for him to walk. In the ED, he was reportedly not orthostatic, but had an ataxic gait and was not able to stand/walk safely. His imaging revealed no acute CVA by CT/CTA, but a near complete R carotid A occlusion. Findings were discussed with [facility] neuro: no emergent intervention was recommended and MRI of the brain on non-emergent basis was suggested. Hospitalist admission was requested. Review of Systems Narrative: Denies feeling of congestion in his ears, sore throat; does have chronic nasal congestion and cough. Denies chest pain, shortness of breath, fever. Endorses chronic RUQ pain only when he is touched since his cholecystectomy. Otherwise, abdomen does not bother him. All systems reviewed & are unremarkable except as noted in HPI and below PFSH Medical History Alcohol abuse GERD (gastroesophageal reflux disease) HTN (hypertension) Hx of hyperlipidemia Surgical History Fracture of right hip pinning Hx of cholecystectomy Social History Smoking/Tobacco Use Status: Current, status unknown Tobacco Type: cigars Smoking risk assessment performed?: Yes Alcohol Intake: current Alcohol Intake frequency: holidays/special occasions only Drug use: Never Substance use type: does not use Do you feel safe at home: Yes Do you feel safe in your relationship?: Yes Meds Allergies and Home Medications Allergies Allergy/AdvReac Type Severity Reaction Status Date / Time No Known Allergies Allergy Verified 07/08/20 20:45 Home Medications Medication Instructions Recorded Confirmed Type amlodipine 10 mg PO DAILY 10/25/14 07/08/20 History omeprazole 40 mg PO DAILY 10/25/14 07/08/20 History tramadol 50 mg PO BID PRN 10/25/14 07/08/20 History trazodone 300 mg PO HS 10/25/14 07/08/20 History docusate sodium [Colace] 100 mg PO TID cap 04/01/15 07/08/20 Rx folic acid 1 mg PO DAILY tab 04/01/15 07/08/20 Rx aspirin [Children's Aspirin] 81 mg PO DAILY 02/24/16 07/08/20 History atorvastatin 10 mg PO DAILY 02/24/16 07/08/20 History multivitamin [Daily Multi-Vitamin] 1 tab PO DAILY 02/24/16 07/08/20 History vitamin R13-knhlk acid 1 tab PO DAILY 02/24/16 06/07/20 History nitroglycerin [Nitrostat] 0.4 mg SUBLINGUAL Q15MIN PRN #21 02/25/16 07/08/20 Rx tab lisinopril 10 mg PO DAILY 04/13/17 07/08/20 History albuterol sulfate 2 puff INHALATION QID PRN 06/07/20 07/08/20 History furosemide 20 mg PO DAILY 06/07/20 07/08/20 History loratadine 10 mg PO DAILY 06/07/20 07/08/20 History tamsulosin 0.4 mg PO DAILY 06/07/20 07/08/20 History Exam Narrative Exam Narrative: General: Very pleasant elderly male who is hard of hearing, A&Ox3, no discomfort when turning side to side Neurological: A&Ox3, AKIAK, I cannot fully assess extraocular movements because the patient states he cannot follow my finger and never could, 5/5 strength throughout, no focal weakness Psychiatric: appropriate speech pattern/content Skin: visible skin dry/intact HEENT: Atraumatic, normocephalic, The patient is able to track me in the room, but not my finger on EOM exam, dry MM, clear oropharynx, no submandibular or cervical lymphadenopathy, no goiter or JVD Cardiovascular: RRR, no m/r/g Lungs: CTAB/diminished Gastrointestinal: Soft, tender below the site of his well healed RUQ incision, nondistended Genitourinary: deferred Extremities: no edema BLE's, 5/5 strength throughout Results Imaging Additional studies: EKG: NSR< HR 75, no acute ischemia, nonspecific ST segment abnormality inferolateral leads, also seen on EKG from 06/07/20. CXR: 1. Calcified pleural plaques, suggesting history of asbestos exposure. 2. No acute infiltrates or effusions. CT/CTA head/neck: 1. Hypoplastic right A1 segment, a normal variant. 2. Hypoplastic distal right vertebral artery normal variant. 1. Calcified atherosclerotic disease with near complete occlusion of the right internal carotid artery origin and moderate stenosis of the left internal carotid artery origin. 2. Moderate stenosis of left vertebral artery origin. 3. Hypoplasia of right vertebral artery. Labs Result diagrams: 07/08/20 19:49 07/08/20 19:49 Labs: Laboratory Results - last 24 hr 07/08/20 07/08/20 07/08/20 19:49 19:49 20:22 WBC 7.31 RBC 3.81 L Hgb 12.9 L Hct 38.0 L MCV 99.7 H MCH 33.9 H MCHC 33.9 RDW 12.2 Plt Count 181 MPV 11.5 H Immature Gran % 0.1 Neutrophils % 50.9 Lymphocytes % 29.5 Monocytes % 8.5 Eosinophils % 9.8 Basophils % 1.2 Nucleated RBC % 0 Absolute Neutrophils 3.71 Absolute Lymphocytes 2.16 Absolute Monocytes 0.62 Absolute Eosinophils 0.72 H Absolute Basophils 0.09 Sodium 141 Potassium 3.3 L Chloride 105 Carbon Dioxide 27.6 Anion Gap 8.4 BUN 11 Creatinine 0.9 Estimated GFR/1.73 m2 >= 60.00 Glucose 111 H Calcium 8.6 Magnesium 1.6 L Total Bilirubin 0.3 AST 14 L ALT 23 Alkaline Phosphatase 123 H Troponin I < 0.05 NT-Pro-B Natriuret Pep 343 H Total Protein 6.9 Albumin 3.1 L Urine Color Yellow Urine Clarity Clear Urine pH 5.5 Ur Specific [place] <= 1.005 Urine Protein Negative Urine Ketones Negative Urine Blood Negative Urine Nitrite Negative Urine Bilirubin Negative Urine Urobilinogen 0.2 Ur Leukocyte Esterase Negative Urine Glucose Negative COVID-19 Source SARS-CoV-2 (PCR) 07/08/20 07/08/20 07/08/20 22:22 22:40 23:40 WBC RBC Hgb Hct MCV MCH MCHC RDW Plt Count MPV Immature Gran % Neutrophils % Lymphocytes % Monocytes % Eosinophils % Basophils % Nucleated RBC % Absolute Neutrophils Absolute Lymphocytes Absolute Monocytes Absolute Eosinophils Absolute Basophils Sodium Potassium Chloride Carbon Dioxide Anion Gap BUN Creatinine Estimated GFR/1.73 m2 Glucose Calcium Magnesium Total Bilirubin AST ALT Alkaline Phosphatase Troponin I < 0.05 NT-Pro-B Natriuret Pep Total Protein Albumin Urine Color Urine Clarity Urine pH Ur Specific [place] Urine Protein Urine Ketones Urine Blood Urine Nitrite Urine Bilirubin Urine Urobilinogen Ur Leukocyte Esterase Urine Glucose COVID-19 Source Cancelled Nasopharyx SARS-CoV-2 (PCR) Cancelled Last Vital Signs Temp 36.8 C 07/09/20 00:19 Pulse 80 07/09/20 00:19 Resp 17 07/09/20 00:19 BP 121/64 07/09/20 00:19 Pulse Ox 95 07/09/20 00:19 COVID-19 Screening Have you, or household traveled for leisure in last 14 days?: No Had IN PERSON contact w/suspected or confirmed C-19 person: No
[2020-07-09] MEDS: traZODone 100 MG TAB 300 MG PO ×2 (03:22→22:17)
[2020-07-09 07:48] LABS: Abs Immature Grans 0.01 10^3/uL (0.0-0.06); Absolute Basophil Count 0.09 10^3/uL (0.0-0.2); Absolute Eosinophil Count 0.67 10^3/uL (0.0-0.7); Absolute Lymphocyte Count 1.82 10^3/uL (1.2-3.4); Absolute Monocyte Count 0.66 10^3/uL (0.1-0.8); Absolute Neutrophil Count 5.33 10^3/uL (1.2-6.7); Eosinophils % 7.8; HCT 35.5 % (40.0-50.0); Immature Grans % 0.1; Lymphocytes % 21.2; MCHC 33.8 % (32.0-36.0); MCV 97.5 fL (80-95); MPV 11.2 fL (8.0-11.0); Monocytes % 7.7; Neutrophils % 62.2; Nucleated RBC 0 %; Platelet Count 160 10^3/uL (130-400); RBC 3.64 10^6/uL (4.36-5.78); RDW 12.2 % (11.8-14.1); RDW-SD 44.2 fL; WBC 8.58 10^3/uL (4.4-10.8)
[2020-07-09 08:06] LABS: Anion Gap 8.8 mmol/L (3-11); BUN 8 mg/dL (7-18); CO2 25.2 mmol/L (21.0-32.0); CREATININE 0.8 mg/dL (0.70-1.30); Calcium 8.1 mg/dL (8.5-10.1); Calculated LDL 64 mg/dL (<100); Chloride 109 mmol/L (98-107); Cholesterol 139 mg/dL (<200); Glucose 95 mg/dL (74-106); HDL Cholesterol 23 mg/dL (40-60); Magnesium 1.9 mg/dL (1.8-2.4); Potassium 3.8 mmol/L (3.5-5.1); Sodium 143 mmol/L (136-145); Triglyceride 261 mg/dL (<150)
[2020-07-09] MEDS: Normal Saline 1,000 ML 125 ML IV (08:25)
[2020-07-09] MEDS: Folic Acid 1 MG TAB PO (08:27)
[2020-07-09] MEDS: Meclizine 12.5 MG TAB PO ×3 (08:27→20:16)
[2020-07-09] MEDS: amLODIPine 10 MG TAB PO (08:27)
[2020-07-09] MEDS: Docusate Sodium 100 MG CAP PO ×3 (08:28→20:16)
[2020-07-09] MEDS: Tamsulosin 0.4 MG CAPCR PO (08:28)
[2020-07-09] MEDS: Atorvastatin 10 MG TAB PO (08:28)
[2020-07-09] MEDS: Cyanocobalamin 500 MCG TAB PO (08:28)
[2020-07-09] MEDS: Loratidine 10 MG TAB PO (08:28)
[2020-07-09] MEDS: Multivitamin TAB 1 TAB PO (08:28)
[2020-07-09] MEDS: Aspirin 81 MG CHEW PO (08:28)
[2020-07-09] MEDS: Omeprazole 20 MG CAPCR 40 MG PO (08:29)
[2020-07-09 08:36] LABS: Folate > 20.0 ng/mL (8.6-20.0); Vitamin B12 487 pg/mL (193-986)
--- NOTE | 2020-07-09 10:46 | PDOC.CMIN ---
- If Service Date Differs Date of service: 07/09/20 Time of Service: 10:46 Care Management Initial Assess REASON FOR HOSPITALIZATION:: Dizziness PAST MEDICAL HISTORY/PAST SURGICAL HISTORY:: Medical History . Alcohol abuse. GERD (gastroesophageal reflux disease). HTN (hypertension). Hx of hyperlipidemia. Surgical History . Fracture of right hip. pinning. Hx of cholecystectomy PREVIOUS FUNCTIONAL STATUS/SOCIAL/FAMILY SUPPORTS:: Tyler [place] [facility] He has no family in the area but does have close friends. Tyler worked for over 50 years in the [employer] and did everything. He stated that he enjoyed it. He is still close friends with one of the women he worked with. Tyler uses a 4ww in his apartment anmd has an electric wheelchair for when he goes out. He is independent with ADL. [facility] CURRENT FUNCTIONAL STATUS:: Tyler was lying in bed when CM met with him. He shared that he came to the hospital because he was dizzy but that they found other things, like a blockage in his neck. Tyler verbalized that he was surprised that he did not get [facility] the [facility] but understands he may go tomorrow if a bed is available. He had a baseball game on TV and when asked who he favored in sports, he answered all teams [place]. The [employer] Sox were playing a double header with the White [employer] so he seemed pleased. ADVANCE DIRECTIVES:: none on file Has patient been provided with info about the portal/API?: No Did the patient sign up for the portal?: No CODE STATUS:: DNR/DNI INSURANCE COVERAGE / FINANCIAL ISSUES:: medicare. [facility] CURRENT HOME/COMMUNITY SERVICES/EQUIPMENT:: MOW, 4 WW, electric wheelchair, home health nurse once a week. PRIMARY CARE PHYSICIAN:: Jose Guadalupe Fernandes is listed on Tyler's chart however he states that his PCP is Brad Chavez. CM will clarify with [facility] on Friday. POTENTIAL DISCHARGE NEEDS:: Follow up with PCP and plan of care PATIENT/FAMILY EDUCATION NEEDS:: Review of discharge plan, medicatioons, limitations, follow up plan, activity, Ask Me Three TRANSPORTATION:: to be determined by disposition PLAN:: Tyler's discharge plan is not clear. He expressed a [facility] to be [facility] but a bed may not be available. Tyler stated that he intends to return home when ready. He has home health and assistive devices but if his needs increase, he may require more support. will continue to support Tyler and his discharge planning needs.
--- NOTE | 2020-07-09 12:22 | PT.INIE ---
Date of service: 07/09/20 Time of Service: 11:10 PT Notes Visit Reasons: DIZZINESS, INABILITY TO AMBULATE Inpatient Physical Therapy Evaluation Date: July 09, 2020 Referring Doctor: Jenny Dowd PT Orders: PT CONSULT: Limited ability Precautions: Standard, Falls Patient Profile/Admitting Diagnosis: Tyler is a 72-year-old gentleman with history of pancytopenia, hyponatremia, hypomagnesemia, COPD, community-acquired pneumonia, presents with dizziness to the ED which started 4 days ago. Patient states that worse in the morning and persistent throughout the day. He states that he feels disequilibrium and having difficulty ambulating secondary to dizziness. He states that today he was unable to ambulate independently even with his walker which typically works well as an assistive device. He denies any falls or injuries. He stopped drinking alcohol 2 months ago. He also states that he has peripheral neuropathy and he feels as though this was worsening. He denies any headache, chest pain, shortness of breath. PMHX: Alcohol abuse GERD (gastroesophageal reflux disease) HTN (hypertension) Hx of hyperlipidemia Surgical History Fracture of right hip pinning Hx of cholecystectomy Social History/Home Situation: Current Functional Limitations: Inability to ambulate due to dizziness. Prior to admission utilizes motorized wheelchair in community and Rollator around his home. Equipment Owned/DME: Motorized wheelchair, Rollator Subjective: Tyler is agreeable to PT consult this am. Notes continued dizziness and was able to sit on edge of bed this morning while nursing cleaned him up. Objective: General Observation: IV left upper extremity Mental Status: Alert and oriented x3 Pain: Declines pain at time of PT consult Vital Signs: BP with head of bed at 40 degrees 142/59 mmHg, standing 120/71 mmHg ROM: Right Upper Extremity: Within normal limits Left Upper Extremity: Within normal limits Right Lower Extremity: Within normal limits Left Lower Extremity: Within normal limits Strength: Right Upper Extremity: Demonstrates grossly 5/5 right upper extremity strength Left Upper Extremity: Demonstrates grossly 5/5 left upper extremity strength Right Lower Extremity: Demonstrates good functional strength right lower extremity Left Lower Extremity: Demonstrates good functional strength left lower extremity Sensation: Diminished sensation bilateral lower extremities secondary to peripheral neuropathy Bed Mobility/Transfers: Supine?sit: supervision Sit-stand: Supervision Stand-sit: Supervision with cueing for hand placement Gait: Utilize front wheeled walker full weightbearing standby assist with nursing 25 feet x 2 Balance: Static Sitting: Normal Dynamic Sitting: Good Static Standing: Fair Dynamic Standing: Poor Special Tests: Mobility Limitations Standardized Measure [facility] AM-PAC 6 clicks Basic Mobility Inpatient Short Form: Raw Score: 19 Standardized Score: 41.77% Informed Consent/Education: Patient instructed in purpose of PT consult and plan of care. Assessment: Patient is a 80 year old male referred to physical therapy services with the diagnosis of dizziness/ataxia, with B LE peripheral neuropathy. Patient presents with clinical signs and symptoms consistent with diagnosis, as demonstrated by the following impairment level findings: Decreased functional endurance with lower extremity instability secondary to dizziness. Impairments are contributing to the following functional limitations: Unable to ambulate independently due to dizziness and weakness lower extremity with standing Patient is assessed as a Moderate 62618 complexity based on the following: History: As above Examination: As above Presentation: Evolving Decision Making: Moderate Goals: Goals X1 week 1. Supine-Sit independent 2. Sit-Supine independent 3. Sit-Stand independent 4. Stand-Sit independent 5. Bed-Chair supervision with front wheeled walker 6. Chair-Bed supervision with front wheeled walker 7. Gait supervision with front wheeled walker 100 feet or greater Plan of Care/Treatment Plan: 1-2x/day, 7 days/week x 1 week. Plan of care has been reviewed with the C UNIX DEVELOPER providing the service under Physical Therapy direction. Initiate Physical Therapy intervention for strengthening, bed mobility, transfers, gait, stairs, balance training, use of assistive device. DISCHARGE RECOMMENDATIONS: Discharge home once medically cleared TREATMENT CODE/TIME: 30785, IE, 11:10; 20 minutes BEL Guerra [facility] Disclaimer: This note was created using [employer] voice recognition software. It was reviewed for major content. However, there may be multiple small discrepancies and errors due to the voice recognition aspects of the software.
[2020-07-09 12:26] LABS: COVID-19 PCR Negative (Negative)
--- NOTE | 2020-07-09 15:31 | W.PM.PROGNOT ---
Date of Service Date of service: 07/09/20 Time of Service: 15:32 Assessment and Plan Assessment and plan (1) Dizziness: Status: Acute Assessment and plan: Patient's dizziness had improved w/ holding his lisinopril and flomax. His norvasc however was continued. He only noted slight lightheaded feeling when he first got up. He did well for P.T. (2) Stenosis of right internal carotid artery: Status: Acute Assessment and plan: Proceed w/ MRI of brain looking for any occult strokes. cont. atorvastatin and ASA. refer to neurology for followup. if CVA's are found on his MRI then this may change his antiplatelet strategy. He should have outpatient 30 day event recorder done if his MRI shows CVA's. So far his rhythm has been NSR. (3) H/O alcohol abuse: Status: Resolved Assessment and plan: Patient claims remission for past 3 to 4 months. So far no signs of withdrawal. cont. thiamine, MVS, folic acid. I think that high dose thiamine probably was not necessary. (4) Hypokalemia: Status: Resolved Assessment and plan: Replete and recheck in am (5) Hypomagnesemia: Status: Resolved Assessment and plan: Replete and recheck in am (6) DVT prophylaxis: Status: Acute Assessment and plan: SC heparin (7) Discharge planning issues: Status: Acute Assessment and plan: DNR/DNI Subjective Subjective Interval history since last seen: Patient was admitted last night d/t severe dizziness, gait imbalance. Workup included CTA of head and neck. Incidental finding was bilateral carotid stenosis. He has near complete occlusion of proximal NATALIE with additional stenosis of the distal cavernous portion of the NATALIE in the 50-70% stenosis and 50-70% stenosis of the proximal LICA. Patient was hydrated and his Flomax and lisinopril were held. His lightheadedness has improved. Vertebral arteries were unremarkable. Patient ambulated today for P.T. w/ FWW. he has some static and dynamic balance issues and continued P.T. is recommended. has ordered an MRI of his brain for tomorrow to look for occult CVA's. Because of his severe NATALIE stenosis and moderate stenosis on the LICA, he may be a candidate for CEA. Neurology was consulted over the phone by the ER and case was discussed w/ Dr. Gerber by Laverne Gomes Images were pushed for his review. Dr. Morales, neurology will see him tomorrow for local neurology consult. The patient would like us to coordinate his care w/ owen Aguilera in [facility]. Patient is currently on atorvastatin 10 mg and his LDL is under 70. He is also on ASA 81 mg daily at home. His BP seems to be well controlled (perhaps too well controlled accounting for his dizziness). However he continues to smoke about 10 cigars per day. Exam Narrative Exam Narrative: Obese elderly male lying in bed watching TV. He is alert and oriented x 3 HEENT: urnremarkable. no facial asymmetry, normal facial mimetic muscle movement; EOMI Neck: bilateral carotid bruits; NATALIE pulse is weak compared to the left; no JVD Lungs are clear Heart is regular, soft systolic murmur over apex; no gallop or rub Abdomen is obese, soft and non tender Extremities w/ normal ROM and strength; sensory over feet decr. to light touch Neuro: no focal CN deficits, normal motor strength; decr. sensory as above Objective Last Vital Signs Temp 37 C 07/09/20 15:28 Pulse 82 07/09/20 15:28 Resp 19 07/09/20 15:28 BP 122/63 07/09/20 15:28 Pulse Ox 91 L 07/09/20 15:28 Laboratory Results - last 24 hr 07/08/20 07/08/20 07/08/20 19:49 19:49 20:22 WBC 7.31 RBC 3.81 L Hgb 12.9 L Hct 38.0 L MCV 99.7 H MCH 33.9 H MCHC 33.9 RDW 12.2 Plt Count 181 MPV 11.5 H Immature Gran % 0.1 Neutrophils % 50.9 Lymphocytes % 29.5 Monocytes % 8.5 Eosinophils % 9.8 Basophils % 1.2 Nucleated RBC % 0 Absolute Neutrophils 3.71 Absolute Lymphocytes 2.16 Absolute Monocytes 0.62 Absolute Eosinophils 0.72 H Absolute Basophils 0.09 Sodium 141 Potassium 3.3 L Chloride 105 Carbon Dioxide 27.6 Anion Gap 8.4 BUN 11 Creatinine 0.9 Estimated GFR/1.73 m2 >= 60.00 Glucose 111 H Calcium 8.6 Magnesium 1.6 L Total Bilirubin 0.3 AST 14 L ALT 23 Alkaline Phosphatase 123 H Troponin I < 0.05 NT-Pro-B Natriuret Pep 343 H Total Protein 6.9 Albumin 3.1 L Triglycerides Total Cholesterol LDL Cholesterol, Calc HDL Cholesterol Vitamin B12 Folate TSH Urine Color Yellow Urine Clarity Clear Urine pH 5.5 Ur Specific Colton <= 1.005 Urine Protein Negative Urine Ketones Negative Urine Blood Negative Urine Nitrite Negative Urine Bilirubin Negative Urine Urobilinogen 0.2 Ur Leukocyte Esterase Negative Urine Glucose Negative COVID-19 Source SARS-CoV-2 (PCR) 07/08/20 07/08/20 07/08/20 22:22 22:40 23:40 WBC RBC Hgb Hct MCV MCH MCHC RDW Plt Count MPV Immature Gran % Neutrophils % Lymphocytes % Monocytes % Eosinophils % Basophils % Nucleated RBC % Absolute Neutrophils Absolute Lymphocytes Absolute Monocytes Absolute Eosinophils Absolute Basophils Sodium Potassium Chloride Carbon Dioxide Anion Gap BUN Creatinine Estimated GFR/1.73 m2 Glucose Calcium Magnesium Total Bilirubin AST ALT Alkaline Phosphatase Troponin I < 0.05 NT-Pro-B Natriuret Pep Total Protein Albumin Triglycerides Total Cholesterol LDL Cholesterol, Calc HDL Cholesterol Vitamin B12 Folate TSH Urine Color Urine Clarity Urine pH Ur Specific Colton Urine Protein Urine Ketones Urine Blood Urine Nitrite Urine Bilirubin Urine Urobilinogen Ur Leukocyte Esterase Urine Glucose COVID-19 Source Cancelled Nasopharyx SARS-CoV-2 (PCR) Cancelled Negative 07/09/20 07/09/20 07/09/20 07:22 07:22 07:22 WBC 8.58 RBC 3.64 L Hgb 12.0 L Hct 35.5 L MCV 97.5 H MCH 33.0 MCHC 33.8 RDW 12.2 Plt Count 160 MPV 11.2 H Immature Gran % 0.1 Neutrophils % 62.2 Lymphocytes % 21.2 Monocytes % 7.7 Eosinophils % 7.8 Basophils % 1.0 Nucleated RBC % 0 Absolute Neutrophils 5.33 Absolute Lymphocytes 1.82 Absolute Monocytes 0.66 Absolute Eosinophils 0.67 Absolute Basophils 0.09 Sodium 143 Potassium 3.8 Chloride 109 H Carbon Dioxide 25.2 Anion Gap 8.8 BUN 8 Creatinine 0.8 Estimated GFR/1.73 m2 >= 60.00 Glucose 95 Calcium 8.1 L Magnesium 1.9 Total Bilirubin AST ALT Alkaline Phosphatase Troponin I NT-Pro-B Natriuret Pep Total Protein Albumin Triglycerides 261 H Total Cholesterol 139 LDL Cholesterol, Calc 64 HDL Cholesterol 23 L Vitamin B12 487 Folate > 20.0 H TSH 0.90 Urine Color Urine Clarity Urine pH Ur Specific Colton Urine Protein Urine Ketones Urine Blood Urine Nitrite Urine Bilirubin Urine Urobilinogen Ur Leukocyte Esterase Urine Glucose COVID-19 Source SARS-CoV-2 (PCR)
[2020-07-09] MEDS: Normal Saline 1,000 ML 65 ML IV (18:22)
[2020-07-10] VITALS (8 sets, daily range): BP systolic 101–151; BP diastolic 58–73; PULSE 66–84; RESP 16–18; TEMP 36.7–37.3; O2SAT 93–95
[2020-07-10] MEDS: THIAMINE 500 MG in Normal Saline 100 ML 200 MG IVPB ×2 (00:27→11:03)
[2020-07-10] MEDS: Loratidine 10 MG TAB PO (07:44)
[2020-07-10] MEDS: Cyanocobalamin 500 MCG TAB PO (07:44)
[2020-07-10] MEDS: Meclizine 12.5 MG TAB PO ×3 (07:44→14:47)
[2020-07-10] MEDS: Atorvastatin 10 MG TAB PO (07:45)
[2020-07-10] MEDS: Multivitamin TAB 1 TAB PO (07:45)
[2020-07-10] MEDS: Omeprazole 20 MG CAPCR 40 MG PO (07:45)
[2020-07-10] MEDS: Docusate Sodium 100 MG CAP PO ×3 (07:45→20:10)
[2020-07-10] MEDS: amLODIPine 10 MG TAB PO (07:45)
[2020-07-10] MEDS: Aspirin 81 MG CHEW PO (07:45)
[2020-07-10] MEDS: Folic Acid 1 MG TAB PO (07:45)
[2020-07-10] MEDS: Tamsulosin 0.4 MG CAPCR PO (07:45)
--- NOTE | 2020-07-10 08:58 | OT.INNT ---
Date of service: 07/10/20 Time of Service: 08:55 Occupational Therapy Notes 07/10/20 OT consult received and pts chart was reviewed. OT attempted to consult with pt who was out of his room for testing. OT will attempt to resume and see pt for consult tomorrow. Chula Stanley [facility]
--- NOTE | 2020-07-10 09:02 | DI.MRI_ITS ---
EXAM: MR BRAIN WO CLINICAL HISTORY: vertigo, concern for possible central etiology TECHNIQUE: Multiplanar multisequence MRI of the brain was performed. COMPARISON: CT CT BRAIN NECK CTA from 07/08/2020 FINDINGS: CEREBRAL PARENCHYMA: There is no evidence of intracranial hemorrhage, mass effect, or shift of midline structures. There are no extra-axial fluid collections. Ventricles are not enlarged or shifted. There is no significant focal signal abnormality in the cerebellar hemispheres nor within the selvin. Mild increased signal noted in the right-side of the mesencephalon. No abnormal signal in the thalam i. There is abundant patchy signal abnormality in the periventricular white matter consistent with chron ic ischemic changes. There is no significant focal signal abnormality evident on diffusion imaging to suggest acute ischem ic event. PITUITARY GLAND: No mass nor parasellar abnormality. No obvious mass in the cavernous sinuses. FLOW VOIDS: There is absence of normal flow void in the right intracavernous internal carotid artery. Appears significantly stenotic. Possible occlusion. There is flow seen in the right middle cerebr al artery. However, appears stenotic at its origin. PARANASAL SINUSES: There is circumferential mucosal thickening in the maxillary sinuses, more so on t he right side and there is a small fluid level in the left maxillary sinus as well as a fluid level i n the sphenoid sinus. Visualized frontal sinuses exhibit mucosal thickening but no fluid levels ther ein. Fluid signal is seen in the mastoid air cells on the right side ORBITS: No obvious findings. IMPRESSION: 1. There is abundant periventricular signal abnormality consistent with chronic small vessel ischemic changes. There is no abnormal signal on diffusion imaging to suggest acute infarction in the brain. 2. Significant narrowing of the right internal carotid artery. Please refer to recent CT angiography study results. DATA REPOSITORY:
--- NOTE | 2020-07-10 10:27 | CMDISCH_ITS ---
- If Service Date Differs Date of service: 07/11/20 Time of Service: 09:46 LACE Index Scoring Tool - Questions: Length of Stay (in days): 2 Acuity (Admit via E.D.?): Yes E.D. Visits: 2 - Answers: Total Score: 7 Risk of Readmission: Low Risk Care Management Discharge Reason for Hospitalization: Dizziness Discharge Plan: Tyler will return home when ready per MD with resumption of home health RN and addition of PT. [facility] He will transport via [facility] [employer], coordinated by this poem writer. Patient/Family Education Needs: Review discharge instructions, discuss Ask Me Three. Services Needed at Discharge: Home Health Care Services (RN/PT/GROCERY STORE CLERK), Transportation ([employer] [facility])
--- NOTE | 2020-07-10 10:30 | W.NUTRFU ---
Date of service: 07/10/20 Time of Service: 10:31 Nutritional Follow up NOTE: 80 year old male admitted with ataxia with hx of ETOH abuse, GERD, obesity and HTN. Supplemented with MVI, folic acid and thiamin for repletion. Currently meeting nutrient and fluid requirements with regular diet. Not considered at nutritional risk. Time Spent in Nutritional Counseling and Treatment: 0
[2020-07-10 11:00] LABS: Lyme Ab w Rflx to Lyme Confirm Negative (Negative)
[2020-07-10] MEDS: Normal Saline 1,000 ML 65 ML IV (13:40)
--- NOTE | 2020-07-10 14:32 | W.PM.PROGNOT ---
Date of Service Date of service: 07/10/20 Time of Service: 14:32 Assessment and Plan Assessment and plan (1) Peripheral vertigo of both ears: Status: Acute Assessment and plan: incr. meclizine to 25 mg tid; ask P.T. to work on vestibular exercises (2) Stenosis of right internal carotid artery: Status: Acute Assessment and plan: He actually has bilateral carotid stenosis however the NATALIE is around 90% while the LICA is 50 to 70%. He is currently on ASA 81 mg along w/ atorvastatin 10 mg w/ his LDL at 64 which meets the goal of less than 70. I am awaiting neurology input on his case. From my review of treatment of asymptomatic BEE he is on the recommended regimen. His MRI of the brain did not show any acute CVA but a lot of bilateral periventricular white matter signal abnormalities c/w chronic small vessel ischemic disease. If he were symptomatic from this I would refer to vascular surgeon for RCEA. I will await Dr. Morales's input on his case. Patient will follow up at the [facility] for his care upon discharge. Subjective Subjective Interval history since last seen: Patient states that he is still having dizzy spells with changes in position. When I ask him to be more specific of his symptoms it sounds more like vertigo symptoms in which he feels that the room is spinning and he is off balance. He says that these spells come on w/ sitting up or standing up too quickly but resolve quickly. No associated headache or nausea or blurred vision. He denies any tinnitus. he has chronic hearing loss and usually wears hearing aids. Exam Narrative Exam Narrative: Elderly white male lying in bed. Alert and oriented x 3. Normal speech and normal eomi and speech Ear canals are free of any wax and no sign of infection. Cold caloric test was performed on each ear canal w/ HOB at 30 degrees. + vertigo and horizontal nystagmus noted w/ testing of right ear and occurred almost immediately. +/- test in left ear. No nystagmus but delayed vertigo feeling after about 30 to 60 seconds after test. Bereny maneuver was performed prior to cold caloric test and he had reproducible vertigo and horizontal nystagmus. Symptoms subsided after about one minute Objective Last Vital Signs Temp 37.3 C 07/10/20 11:41 Pulse 83 07/10/20 11:47 Resp 16 07/10/20 11:41 BP 101/58 L 07/10/20 11:47 Pulse Ox 95 07/10/20 11:41 Laboratory Results - last 24 hr 07/09/20 07:22 Lyme Disease Antibody Negative
--- NOTE | 2020-07-10 15:35 | PT.INTREAT ---
Date of service: 07/10/20 Time of Service: 15:35 PT Notes Visit Reasons: DIZZINESS, INABILITY TO AMBULATE Inpatient Physical Therapy Treatment Note [facility] Date: 07/10/2020 PRECAUTIONS: Standard. Falls. Activity as tolerated. SUBJECTIVE: Tyler reports significant dizziness and sensation of spinning of the same intensity as 5 days ago with changes in head positioning. He also reports tenderness and soreness in the back of his neck. States that he has not recently fallen in the past 12 months but had fallen several times in several years ago. Nurse Nehal reports that patient has taken 2 doses of Meclizine about an hour apart before this afternoon's session that started at 15:35 PM. OBJECTIVE: Supine in bed. IV in left UE. Telemetry monitoring in place. PAIN: Reports posterior upper neck tenderness and pain 3-4/10 VERTIGO TESTING: Cleared the cervical area using the alar ligament test and the Sharp Jeff test which were both negative. However patient reported tender area when posterior upper neck were palpoated on both sides. No spontantaneous nystagmus seen. When patient was instructed to follow PT's R index finger, patient was unable to visually track to the R and the L. Attempted to initiate habituation exercises starting with ensuring that B eyes focus on same index finger as head is moved up and down and then L and R. Due to increase in dizziness reports patient was only able to perform 3 reps of each movement but with extreme difficulty tracking and focusing on PT's finger. Doreen-Hallpike/Nylan-Barany Test was done after letting patient rest for about 5 minutes to recover from symptoms. Both sides reproduced the dizziness and spinning sensation but with more intensity when head was moved to the R. Patient had significant difficulty focusing on PT's forehead during the 2 minutes he was placed in the testing position making discrimination of presence of nystagmus challenging. NEURO RE-ED: Initiated habituation exercises for the neck and the trunk and was tolerated only for three to five repetition in flexion and extensions as well as rotation due to significant symptom provocation. NECK ROM: Lacks the last 10 degrees of active neck extension and flexion. Rotation to either side limited by 50% actively. ASSESSMENT: Question cervicogenic dizziness vs. ocular dysmetria. Patient reports tenderness in the upper posterior neck area which he states has gotten worse over the last week. I do not know how the patient's inability to visually track objects came about but it certainly is limiting overall testing. Will defer to further testing by neurologist. PLAN: Continue with vestibular rehabilitation as tolerated. Will await further testing and diagnoses by neurologist to modify/add to PT plan of care as appropriate. TREATMENT CODE/TIME: 74344 x 35 minutes beginning at 15:35 PM.
--- NOTE | 2020-07-10 17:17 | NCONE_ITS ---
Date of service: 07/10/20 Time of Service: 17:18 Assessment and Plan Assessment and plan (1) Peripheral vertigo of both ears: Status: Acute (2) Stenosis of right internal carotid artery: Status: Acute (3) Orthostatic hypotension: Status: Acute (4) Peripheral neuropathy: Status: Acute Assessment and plan: Mr. Pratt is a 80 year-old, right-handed man with the following: #1. Dizziness. Based on description of events and exam, he appears to have a combination of vestibulopathy and orthostatic hypotension as the cause of his dizziness, complicated by his known peripheral neuropathy. Agree with permissive hypertension, particularly in setting of carotid stenosis (see below) and continued PT for the vestibulopathy. Can consider outpatient ENT for consideration of VNG if symptoms persist over several weeks. Avoid ETOH and maintain good hydration. Transition/change positions slowly. #2. Severe R and moderate L carotid stenosis, asymptomatic. Continue aspirin and statin. I recommend outpatient vascular surgery consultation for further recommendations. Continue permissive hypertension goal 140-160. Avoid hypotension. #3. Peripheral neuropathy. This is known and due to ETOH abuse as per his understanding. He has recently stopped ETOH. Good job to him. [facility] He should follow-up with neurology as directed by them. History of Present Illness History of Present Illness Chief Complaint: dizziness Narrative: Handedness: right. HPI: Mr. Pratt is a 80 year-old man with HTN, HLD, prior ETOH abuse, ETOH induced neuropathy, pancytopenia, COPD, BPH, and GERD. He gets his care primarily through the [facility]. He was admitted on 07/09/20 to [facility] after presenting with a 1+month history of intermittent dizziness, worse in the preceding few days such that he was unable to ambulate at all. He describes two different symptoms. #1. Vertigo. He describes a spinning sensation that occurs with any position changes including head turning and rolling over. This generally subsides quickly once he is still. He has no associated nausea or emesis. #2. Lightheadedness. This occurs upon standing only. Notes a fog in his head. This resolves within 5minutes. Since admission, lisinopril and tamsulosin were stopped. Lasix was also stopped. He was technically tilt positive on admission (07/09/20): supine 142/59 -> standing 120/71; which resolved with IVF/cessation of meds. His clinical dizziness has been variable: better yesterday, but seeming worse today per reports. Labs since admission included Hgb 12 (baseline ~14), K 3.3->3.8, Cr 0/9, Mag 1.6 ->1.9, AlkP 123, Trop x2 neg, LDL 64, B12 487, F>20, and TSH 0.90. He underwent imaging as below. He is on aspirin 81mg daily along with atorvastatin 10mg daily. Work-up: -CTH (07/08/20): no acute findings. Mild generalized atrophy. I reviewed these images personally and this is my personal interpretation. -CTA head/neck (07/08/20): severe, near occlusion of R ICA just distal to bif urcation with reconstitution and then further severe stenosis again; also with L ICA stenosis measured ~50-70%. I reviewed these images personally and this is my personal interpretation. -MRI brain (07/10/20): no acute findings. Moderate chronic vascular changes. I reviewed these images personally and this is my personal interpretation. Consults Requesting physician: Jenny Dowd Review of Systems All systems reviewed & are unremarkable except as noted in HPI and below PFSH Medical History Alcohol abuse GERD (gastroesophageal reflux disease) HTN (hypertension) Hx of hyperlipidemia Surgical History Fracture of right hip pinning Hx of cholecystectomy Social History Smoking/Tobacco Use Status: Current, status unknown Tobacco Type: cigars Smoking risk assessment performed?: Yes Alcohol Intake: current Alcohol Intake frequency: holidays/special occasions only Drug use: Never Substance use type: does not use Do you feel safe at home: Yes Do you feel safe in your relationship?: Yes Visit Medication and Allergies Active Medications Generic Name Dose Route Start Last Admin Trade Name Freq PRN Reason Stop Dose Admin Acetaminophen 650 mg 07/08/20 23:12 Acetaminophen 325 Mg Tab PO Q4H PRN PRN Al Hydrox/Mg Hydrox/Simethicone 30 ml 07/08/20 23:12 Mylanta Suspension 30 Ml Cup PO Q2H PRN PRN Albuterol Sulfate 0 puff 07/09/20 02:23 Albuterol Hfa 8 Gm 60 Puff Inh IH QID PRN Amlodipine Besylate 10 mg 07/09/20 08:30 07/10/20 07:45 Amlodipine 10 Mg Tab PO 10 mg DAILY KLEVER Administration Aspirin 81 mg 07/09/20 08:30 07/10/20 07:45 Aspirin 81 Mg Chew PO 81 mg DAILY KLEVER Administration Atorvastatin Calcium 10 mg 07/09/20 08:30 07/10/20 07:45 Atorvastatin 10 Mg Tab PO 10 mg DAILY KLEVER Administration Cyanocobalamin 500 mcg 07/09/20 08:30 07/10/20 07:44 Cyanocobalamin 500 Mcg Tab PO 500 mcg DAILY KLEVER Administration Device 1 each 07/09/20 03:00 Inhaler, Assist Device MC DIRECTED KLEVER Dimethicone/Zinc Oxide 0 gm 07/08/20 23:07 Sushil Protect Cream 142 Gm Tube TP PRN PRN Docusate Sodium 100 mg 07/09/20 08:30 07/10/20 13:41 Docusate Sodium 100 Mg Cap PO 100 mg TID KLEVER Administration Folic Acid 1 mg 07/09/20 08:30 07/10/20 07:45 Folic Acid 1 Mg Tab PO 07/15/20 08:31 1 mg DAILY KLEVER Administration Heparin Sodium (Porcine) 5,000 units 07/09/20 00:00 07/10/20 15:48 Heparin 5,000 Units/Ml Vial SC Not Given Q8H KLEVER Sodium Chloride 500 mls @ 0 mls/hr 07/08/20 19:54 Saline 500ml Bag IV PRN PRN As Directed Thiamine HCl 500 mg/ Sodium 105 mls @ 200 mls/hr 07/09/20 00:00 07/10/20 16:29 Chloride IVPB 07/11/20 16:32 Not Given Q8H KLEVER Sodium Chloride 1,000 mls @ 65 mls/hr 07/09/20 04:00 07/10/20 13:40 Saline 1000ml Bag IV 65 mls/hr INFUSION KLEVER Administration IV Miscellaneous Supplies 1 each 07/08/20 20:00 Iv Access IV DIRECTED KLEVER Lisinopril 10 mg 07/09/20 08:30 Lisinopril 10 Mg Tab PO DAILY KLEVER Loratadine 10 mg 07/09/20 08:30 07/10/20 07:44 Loratidine 10 Mg Tab PO 10 mg DAILY KLEVER Administration Lorazepam 0 mg 07/08/20 23:14 Lorazepam 1 Mg Tab PO/SL DIRECTED PRN Magnesium Hydroxide 30 ml 07/08/20 23:12 Milk Of Magnesia 30 Ml Cup PO DAILY PRN PRN Meclizine HCl 25 mg 07/10/20 20:00 Meclizine 25 Mg Tab PO TID KLEVER Multivitamins 1 tab 07/09/20 08:30 07/10/20 07:45 Multivitamin Tab PO 07/15/20 08:31 1 tab DAILY KLEVER Administration Nitroglycerin 0.4 mg 07/09/20 02:23 Nitroglycerin 0.4 Mg Tab SL Q5 MIN PRN X3 PRN Omeprazole 40 mg 07/11/20 07:30 Omeprazole 20 Mg Capcr PO DAILY@0730 [facility] Sodium Chloride 0 ml 07/08/20 19:54 07/09/20 01:37 Normal Saline Flush 10 Ml Syr IVP 10 ml PRN PRN Administration Tamsulosin HCl 0.4 mg 07/09/20 08:30 07/10/20 07:45 Tamsulosin 0.4 Mg Capcr PO 0.4 mg DAILY KLEVER Administration Trazodone HCl 300 mg 07/09/20 22:00 07/09/20 22:17 Trazodone 100 Mg Tab PO 300 mg HS KLEVER Administration Allergies No Known Allergies Allergy (Verified 07/08/20 20:45) Exam Narrative Exam Narrative: Physical Exam: Gen: Patient of apparent stated age, NAD Head and face: no facial or cranial abnormalities Neck: Supple, no meningismus, no occipital tenderness CV: RRR Resp: CTA B/L Abd: soft, nontender, nondistended Ext: No edema. No clubbing or cyanosis. No bony deformity. Neuro Exam: Language: fluency, naming, repetition, and comprehension intact; Mental Status: AAOx3, current events intact, fund of knowledge intact; Speech: no dysarthria Cranial nerves: Funduscopy: not performed CN II: visual stafford intact CN III, IV, : extraocular movements intact however with noted significant impairment in smooth pursuit; no nystagmus, pupils symmetric and reactive to light CN V: face sensation intact to LT and PP CN VII: no facial asymmetry noted CN VIII: hearing reduced bilaterally CN IX, X: palate rises symmetrically CN XI: trapezius/SCM 5/5 bilaterally CN XII: protrudes tongue symmetrically Sensory: intact to LT and PP in all extremities; absent vibration and joint position in the toes. Motor: bulk and tone intact. Fine motor movements intact bilaterally. No pronator drift. Strength 5/5 throughout including the deltoids, biceps, triceps, wrist extensors, hip flexors, knee flexors, knee extensors, and ankle extensors. EHL 0/5 bilaterally. Ankle dorsiflexion 4+/5 bilaterally. Brief asterixis noted. Reflexes: 2+ at the biceps, triceps, and brachioradialis; absent LE reflexes bi laterally; toes neutral bilaterally; Coordination: FTN and HTS intact bilaterally Gait: not performed Results Last Vital Signs Temp 37.3 C 07/10/20 15:26 Pulse 73 07/10/20 15:26 Resp 16 07/10/20 15:26 BP 127/68 07/10/20 15:26 Pulse Ox 95 07/10/20 15:26 Labs Result diagrams: 07/09/20 07:22 07/09/20 07:22 Labs: Laboratory Results - last 24 hr 07/09/20 07:22 Lyme Disease Antibody Negative
--- NOTE | 2020-07-10 18:00 | PDOC.CMPRO ---
Care Management Progress Note Plan was for Tyler to discharge today, however per MD, Tyler became dizzy again which Dr. Izaguirre states presented as Vertigo and requires medication adjustments and further PT evaluation. Tyler will be made inpatient and remain at [facility] overnight per MD.
[2020-07-10] MEDS: Meclizine 25 MG TAB PO (20:10)
[2020-07-10] MEDS: traZODone 100 MG TAB 300 MG PO (22:02)
[2020-07-11] MEDS: Normal Saline 1,000 ML 65 ML IV (03:56)
[2020-07-11 03:59] VITALS: BP 129/76; PULSE 75; RESP 18; TEMP 37; O2SAT 91
[2020-07-11 07:22] VITALS: BP 135/66; PULSE 69; RESP 16; TEMP 37.3; O2SAT 94
[2020-07-11] MEDS: Docusate Sodium 100 MG CAP PO ×2 (08:34→14:12)
[2020-07-11] MEDS: Cyanocobalamin 500 MCG TAB PO (08:34)
[2020-07-11] MEDS: amLODIPine 10 MG TAB PO (08:35)
[2020-07-11] MEDS: Folic Acid 1 MG TAB PO (08:35)
[2020-07-11] MEDS: Multivitamin TAB 1 TAB PO (08:35)
[2020-07-11] MEDS: Loratidine 10 MG TAB PO (08:35)
[2020-07-11] MEDS: Atorvastatin 10 MG TAB PO (08:35)
[2020-07-11] MEDS: Tamsulosin 0.4 MG CAPCR PO (08:35)
[2020-07-11] MEDS: Aspirin 81 MG CHEW PO (08:35)
--- NOTE | 2020-07-11 08:35 | OT.INIE ---
Occupational Therapy Notes Inpatient Occupational Therapy Evaluation Date: 07/11/20 Referring Doctor: Ruthy Boss NP OT Orders: Non-URgent Precautions: Fall, standard, DNR/DNI PATIENT PROFILE/ADMITTING DIAGNOSIS: Pt is a 80 year old male who presented to the ED on 07/08/20 and was admitted to [facility] for a dx of pancytopenia, hyponatremia, hypomagnesemia, COPD, community-acquired pneumonia, and dizziness. Past Medical History: Medical History Alcohol abuse GERD (gastroesophageal reflux disease) HTN (hypertension) Hx of hyperlipidemia Surgical History Fracture of right hip pinning Hx of cholecystectomy Social History/Home Situation: Pt reports that he lives alone in an apartment and states that he has a caregiver who comes in to help with home making tasks. Pt states that he has a tub shower that was cut and turned into a walk in shower. He states that he has no issues with dressing or bathing at baseline. Equipment owned/DME: handicap shower, grab bars, raised toilet seat, FWW and cane SUBJECTIVE: Pt was lying in bed when OT arrived, he was agreeable to OT session and notes that he is feeling good today. 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 He denies as he is waiting for his breakfast at this time. TOILETING NT EATING NT- pt has AROM WFL to be able to perform this (I). He denies any issues with chewing, swallowing or cutting his food. BALANCE: Static sitting Normal Dynamic Sitting Normal Static Standing Normal Dynamic Standing NT SPECIAL TESTS: Daily Activity Limitations Standardized Measure [facility] AM -PAC ?6 clicks? Daily Activity Inpatient Short Form: Raw score: 23 Standardized score: 51.12 CMS score: 15.85% INFORMED CONSENT/EDUCATION: Pt instructed in purpose of OT Consult and plan of care. ASSESSMENT: Patient is a 80-year-old male referred to occupational therapy services with diagnosis of pancytopenia, hyponatremia, hypomagnesemia, COPD, community-acquired pneumonia, presents with dizziness. Patient presents with clinical signs and symptoms consistent with dx, as demonstrated by the following impairment level findings/functional limitations: Dizziness with functional mobility and ADL performance, decreased functional activity tolerance due to fatigue, decreased standing ADLs at this time, however demonstrating increased (I) in his sitting ADLs with no LOB or issues. AMPAC score 23 Patient is assessed as a Low 94348 complexity based on the following: History: see above Examination: see functional limitations as noted above Presentation: evolving Decision Making: AMPAC Score 23 GOALS Goals x1 week 1. Transfers (I) 2. Grooming standing at sink (I) with oral hygiene 3. Bathing standing at sink (I) UE/LE 4. Toileting on toilet (I) 5. Eating (I) PLAN OF CARE/TREATMENT PLAN: 1x/day, 5 days/ week x 1week Initiate Occupational Therapy Services for bathing, dressing, grooming, toileting, eating, transfer training. DISCHARGE RECOMMENDATIONS Based on pts current level of function OT recommends that pt return home when medically cleared per MD with services. TREATMENT TIME/MINUTES/CODES 49084, 38994, 25 minutes (07:15) Chula Stanley OTR/[facility]
[2020-07-11] MEDS: Meclizine 25 MG TAB PO ×2 (08:36→14:12)
[2020-07-11] MEDS: Omeprazole 20 MG CAPCR 40 MG PO (08:36)
[2020-07-11 08:48] VITALS: O2SAT 98
--- NOTE | 2020-07-11 10:42 | INDS_ITS ---
Date of service: 07/12/20 Time of Service: 15:20 PT Notes Visit Reasons: DIZZINESS, INABILITY TO AMBULATE Physical Therapy Inpatient Discharge Summary Date: 07/12/2020 Referring Doctor: Jenny Dowd MD PT Orders: PT CONSULT: Limited ability PRECAUTIONS: Standard. Falls. Activity as tolerated. Patient Profile/Admitting Diagnosis: Tyler is a 72-year-old gentleman with history of pancytopenia, hyponatremia, hypomagnesemia, COPD, community-acquired pneumonia, presents with dizziness to the ED which started 4 days ago. Patient states that worse in the morning and persistent throughout the day. He states that he feels disequilibrium and having difficulty ambulating secondary to dizziness. He states that today he was unable to ambulate independently even with his walker which typically works well as an assistive device. He denies any falls or injuries. He stopped drinking alcohol 2 months ago. He also states that he has peripheral neuropathy and he feels as though this was worsening. He denies any headache, chest pain, shortness of breath. PMHX: Medical History Alcohol abuse GERD (gastroesophageal reflux disease) HTN (hypertension) Hx of hyperlipidemia Surgical History Fracture of right hip pinning Hx of cholecystectomy SUBJECTIVE: Tyler reports decreasing dizziness and sensation of spinning of less intensity as yesterday with changes in head neck trunk positioning. He also reports tenderness and soreness in the back of his neck. Reported mild shortness of breath with level surface ambulation. OBJECTIVE: Seated on chair. IV in left UE. Telemetry monitoring in place. PAIN: Reports posterior upper neck tenderness and pain 2?3/10 ROM: Right Upper Extremity: Within normal limits Left Upper Extremity: Within normal limits Right Lower Extremity: Within normal limits Left Lower Extremity: Within normal limits NECK ROM: Lacks the last 10 degrees of active neck extension and flexion. Rotation to either side limited by 50% actively. Strength: Right Upper Extremity: Demonstrates grossly 5/5 right upper extremity strength Left Upper Extremity: Demonstrates grossly 5/5 left upper extremity strength Right Lower Extremity: Demonstrates good functional strength right lower extremity Left Lower Extremity: Demonstrates good functional strength left lower extremity NECK STRENGTH: 3-/5 for neck flexors/extensors, rotators and lateral flexors Bed Mobility/Transfers: Supine?sit: Independent Sit-stand: Independent Stand-sit: Independent Gait: 100 feet x 3 using 4 wheeled walker with full weightbearing requiring supervision with seated rest x3 and report of mild shortness of breath with good walker mechanics Balance: Static Sitting: Normal Dynamic Sitting: Good Static Standing: Fair Dynamic Standing: Fair Assessment: Patient diagnosed by neurologist with bilateral vestibulopathy and will benefit from continued vestibular rehabilitation at home and potentially at an outpatient level. Tyler states that dizziness complaint has subsided as of today with medical management and initiation of vestibular rehabilitation. Patient is a 80 year old male referred to physical therapy services with the diagnosis of dizziness/ataxia, with B LE peripheral neuropathy. Patient presents with clinical signs and symptoms consistent with diagnosis, as demonstrated by the following impairment level findings: Decreased functional endurance with lower extremity instability secondary to dizziness. Impairments are contributing to the following functional limitations: Unable to ambulate independently due to dizziness and weakness lower extremity with standing Goals: Goals X1 week 1. Supine-Sit independent MET 2. Sit-Supine independent MET 3. Sit-Stand independent MET 4. Stand-Sit independent MET 5. Bed-Chair supervision with front wheeled walker MET 6. Chair-Bed supervision with front wheeled walker MET 7. Gait supervision with front wheeled walker 100 feet or greater MET DISCHARGE RECOMMENDATIONS: Patient will benefit from home health PT services in order to continue with vestibular rehabitation, to progress mobility level using least restrictive assistive ambulatory device, assess home safety, identify additional equipment needs, and establish a functional maintenance program that will increase ability of patient to remain at home. TREATMENT CODE/TIME: 34065 x 33 minutes beginning at 10:42 AM. Thank you for the opportunity to participate in the care of this patient. Cat Salmeron PT, DPT, CLT [facility] [place], [place]
[2020-07-11] MEDS: THIAMINE 500 MG in Normal Saline 100 ML 200 MG IVPB (11:19)
[2020-07-11 15:06] VITALS: BP 107/64; PULSE 71; RESP 19; TEMP 36.4; O2SAT 96
--- NOTE | 2020-07-11 15:08 | W.PM.DS.N ---
Date of service: 07/11/20 Time of Service: 15:08 DS: Diagnosis Discharge Diagnosis (1) Peripheral vertigo of both ears: Status: Acute Asessment and Plan: patient had evaluation by neurology, hospitalist service and physical therapy. patient had reproducible vertigo w/ Bereny maneuver and w/ cold caloric irrigation of his ears w/ R>>L. He was started on meclizine and begun on vestibular exercises. These should be continued until his symptoms extinguish. (2) Stenosis of right internal carotid artery: Status: Acute Asessment and Plan: workup of his symptoms included CT/CTA of his head and neck and MRI of brain. No acute nor subacute CVA was seen on his MRI but CTA demonstrated near occlusion of proximal NATALIE (90%) and distal NATALIE stenosis of 50 to 70% in cavernous portion. He also has moderated stenosis of his proximal LICA (50 to 70%). He is to remain on ASA 81 mg along w/ atorvastatin and should follow up w/ neurology and vascular surgery at [facility] in [place], [place]. (3) Orthostatic hypotension: Status: Resolved (4) Peripheral neuropathy: Status: Chronic Discharge Plan Disposition Patient Disposition: HOME W/HOME HEALTH SERVICE Condition: Improving Discharge Details Reason For Visit: DIZZINESS, INABILITY TO AMBULATE Admit Date/Time: 07/10/20 14:47 Admit Provider: Jenny Dowd Attending Provider: Jenny Dowd Primary Care Provider: Brad Morrow Hospital Course Hospital Course: 80-year-old male with prior history of alcohol abuse for which she has been abstinent for the last 2 to 3 months, COPD, HTN, HLD who presented to the ED at [facility] complaining of dizziness and inability to ambulate. Normally he ambulates with the use of a wheeled walker. But over the last 4 days prior to admission dizziness is gotten worse. He has 2 components of his dizziness 1 is a lightheaded feeling when he stands up too quickly and the other is a vertiginous feeling which the room feels like it is spinning. Vertigo symptoms can be exacerbated by rapidly rolling over in bed or by sudden postural changes. In the emergency department he reported he was not orthostatic but had an ataxic gait was unable to stand or walk safely. CT imaging was ordered through the ER including a CT/CTA showed no cerebral hemorrhage but had near complete right carotid artery occlusion of 90% or more of the proximal RCA as well as 50 to 70% stenosis of the distal RCA in the cavernous portion. Left ICA also showed 50 to 70% narrowing. Patient was admitted by Dr. Dowd for further evaluation and treatment. Brain MRI showed abundant periventricular signal abnormality consistent with chronic small vessel ischemic changes. However no abnormal signal on diffusion imaging was seen to suggest an acute infarction. Significant narrowing of the right internal carotid artery was noted consistent with previous findings on CTA. Chest x-ray taken on admission showed no acute changes. He has numerous bilateral pleural plaques consistent with previous asbestos exposure. No pleural effusion was seen. Laboratory studies include a CBC that showed a mild macrocytic anemia with a hemoglobin 12.9 g hematocrit 38% and an MCV of 99.7. Platelet count was normal 181,000 white count was normal at 7300. White cell differential was unremarkable. No coagulation studies were done. CMP was remarkable for a low potassium of 3.3 and a magnesium of 1.6. These were both replaced and at the time of discharge his potassium was 3.8 and his magnesium was 1.9. BUN and creatinine were normal at 8 and 0.8. LFTs were normal. Serial troponins x2 sets were normal at less than 0.05. proBNP was minimally elevated at 343 which is still within his age-adjusted normal range. Lipid profile was obtained and his LDL was found to be acceptable at 64 with a low HDL 23 and a triglyceride of 261 and a total cholesterol of 139. Patient was continued on his usual atorvastatin 10 mg daily and kept on his aspirin 81 mg daily. Neurology consultation was obtained with Dr. Jenae Morales. Please see her note for details. In summary she recommended no change to his current medical regimen and recommend a follow-up with outpatient appointment with vascular surgery at the [facility]. As for his orthostasis this improved by withholding his furosemide and lisinopril and his tamsulosin. This improved his lightheaded feeling but he still had vertigo symptoms. I performed a Barany maneuver as well as cold caloric testing. I was able to elicit nystagmus and vertigo with a Barany maneuver and cold caloric testing was immediately positive in his right ear w/ production of nystagmus and vertigo within seconds and resolving over the next 1 to 2 minutes. Patient was treated w/ meclizine and P.T. was consulted to perform vestibular exercises. Patient will be discharged home w/ resumption of home health services including nursing but w/ addition of physical therapy to work on his gait, balance and particularly vestibular exercises to improve his vertigo. Home Meds and New Rx's Prescriptions: New magnesium oxide 500 mg tablet 500 mg PO BID Qty: 60 RF: 0 potassium chloride 20 mEq tablet extended release 20 meq PO DAILY Qty: 30 RF: 0 Continued amlodipine 10 MG tablet 10 mg PO DAILY RF: 0 omeprazole 20 MG capsule,delayed release(DR/EC) 40 mg PO DAILY RF: 0 folic acid 1 MG tablet 1 mg PO DAILY RF: 0 albuterol sulfate 90 mcg/actuation Hfa Aerosol Inhaler 2 puff INHALATION QID PRNRF: 0 loratadine 10 mg Tablet 10 mg PO DAILY RF: 0 atorvastatin 10 MG tablet 10 mg PO DAILY RF: 0 aspirin [Children's Aspirin] 81 MG tablet,chewable 81 mg PO DAILY RF: 0 vitamin A21-dhbvn acid 1 EACH tablet, sublingual 1 tab PO DAILY RF: 0 multivitamin [Daily Multi-Vitamin] 1 EACH tablet 1 tab PO DAILY RF: 0 nitroglycerin [Nitrostat] 0.4 MG tablet, sublingual 0.4 mg Sublingual Q15MIN PRNQty: 21 RF: 0 Changed tamsulosin 0.4 mg Capsule 0.4 mg PO HS Qty: 0 RF: 0 trazodone 100 MG tablet 200 mg PO HS Qty: 0 RF: 0 lisinopril 10 MG tablet 10 mg PO QPM Qty: 0 RF: 0 furosemide 20 mg tablet 20 mg PO Q OTHER DAY Qty: 0 RF: 0 Discontinued tramadol 50 MG tablet 50 mg PO BID PRNRF: 0 docusate sodium [Colace] 100 MG capsule 100 mg PO TID RF: 0 Discharge Instructions Instructions: Carotid Artery Disease (DC), Benign Paroxysmal Positional Vertigo (DC), Dizziness (GEN) Additional Instructions: When changing position, sit up slowly and stand up slowly using a walker for support. Perform your vestibular exercises 2 to 3 x per day to help extinguish your vertigo symptoms. Use meclizine (antivert) as needed for severe dizziness. Begin on potassium and magnesium supplementation to prevent low potassium and magnesium levels caused by your lasix. resume you amlodipine and your lisinopril however separate the time you take these by 8 hours to prevent sudden drops in your blood pressure. Resume your lasix but decrease to every other day. Stand Alone Forms: Nursing Discharge Form Referrals: Brad Mororw [Primary Care Provider] - (call the office for follow up in the next week) Activity:: Activity as Tolerated Equipment/Supplies:: No Equipment Needed Diet:: Low Sodium Discharge Orders Discharge Orders: Discharge Order (Routine); Ordered 07/11/20 Ordered By: Ray Izaguirre DS: Summary Time Spent with Patient providing and/or coordinating discharge services: Less than 30 minutes Status at Discharge Functional status at discharge: uses cane/walker Overall status at discharge: patient is progressing back to baseline Mental Status: mental status grossly normal Speech and Movement: speech and movement normal Mood: congruent mood Affect: normal affect Exam Psych Mental Status: mental status grossly normal Speech and Movement: speech and movement normal Mood: congruent mood Affect: normal affect DS: Data Vitals/I&O Vitals and I&O: Vital Signs Temperature 36.4 C L 07/11/20 15:06 Temperature Source Tympanic 07/11/20 15:06 Pulse 71 07/11/20 15:06 Pulse Rhythm Regular 07/11/20 08:35 Pulse 72 07/08/20 23:10 Respiratory Rate 19 07/11/20 15:06 Respiratory Effort Non-Labored 07/11/20 08:35 Respiratory Depth Normal 07/11/20 08:35 Respiratory Pattern Normal 07/11/20 08:35 Blood Pressure 107/64 07/11/20 15:06 Blood Pressure Mean 71 07/08/20 23:01 Blood Pressure Position Sitting 07/08/20 19:37 Pulse Oximetry 96 07/11/20 15:06 Oxygen Delivery Method Room Air 07/11/20 15:06 Oxygen Flow Rate 0 07/11/20 15:06 Pain Level 0 07/11/20 15:06 Comment 07/09/20 19:51 Intake & Output 07/10/20 07/11/20 07/11/20 23:59 11:59 23:59 Intake Total 775 / 6858.228 5637.333 / 1407.333 120 / 1407.333 Output Total 1200 / 2750 800 / 1250 450 / 1250 Balance -425 / -870.000 487.333 / 157.333 -330 / 157.333 Weight 84.3 kg Intake: IV 105 / 1210.000 927.333 / 927.333 Oral 670 / 670 360 / 480 120 / 480 Output: Urine 1200 / 2750 800 / 1250 450 / 1250 Other: Urine Color Yellow Yellow Pale Yellow Urine Appearance Clear Clear Clear Urine Odor Normal Normal None Comment pT refused to try to use bathroom before starting physical therapy. Voiding Methods Urinal Urinal Urinal PFSH Medical History Alcohol abuse GERD (gastroesophageal reflux disease) HTN (hypertension) Hx of hyperlipidemia Surgical History Fracture of right hip pinning Hx of cholecystectomy Social History Smoking/Tobacco Use Status: Current, status unknown Tobacco Type: cigars Smoking risk assessment performed?: Yes Alcohol Intake: current Alcohol Intake frequency: holidays/special occasions only Drug use: Never Substance use type: does not use Do you feel safe at home: Yes Do you feel safe in your relationship?: Yes
[2020-07-12 01:52] LABS: Anaplasma phagocytophilum Negative (Negative); B. miyamotoi PCR Negative (Negative); Babesia divergens/MO-1 Negative (Negative); Babesia duncani Negative (Negative); Babesia microti Negative (Negative); Ehrlichia chaffeensis Negative (Negative); Ehrlichia ewingii/canis Negative (Negative); Ehrlichia muris eauclairensis Negative (Negative)
--- NOTE | 2020-07-12 07:24 | OT.INDS ---
Date of service: 07/12/20 Time of Service: 07:24 Occupational Therapy Notes Occupational Therapy Inpatient Discharge Summary Date: 07/12/20 Dates of Service: 07/11/20 Referring Doctor: Ruthy Boss NP OT Orders: Non-URgent Precautions: Fall, standard, DNR/DNI *This document serves as a summary of care, no skilled OT services were provided for this documentation* PATIENT PROFILE/ADMITTING DIAGNOSIS: Pt is a 80 year old male who presented to the ED on 07/08/20 and was admitted to med surg for a dx of pancytopenia, hyponatremia, hypomagnesemia, COPD, community-acquired pneumonia, and dizziness. Past Medical History: Medical History Alcohol abuse GERD (gastroesophageal reflux disease) HTN (hypertension) Hx of hyperlipidemia Surgical History Fracture of right hip pinning Hx of cholecystectomy Social History/Home Situation: Pt reports that he lives alone in an apartment and states that he has a caregiver who comes in to help with home making tasks. Pt states that he has a tub shower that was cut and turned into a walk in shower. He states that he has no issues with dressing or bathing at baseline. 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 He denies as he is waiting for his breakfast at this time. TOILETING NT EATING NT- pt has AROM WFL to be able to perform this (I). He denies any issues with chewing, swallowing or cutting his food. BALANCE: Static sitting Normal Dynamic Sitting Normal Static Standing Normal Dynamic Standing NT ASSESSMENT: Patient is a 80-year-old male referred to occupational therapy services with diagnosis of pancytopenia, hyponatremia, hypomagnesemia, COPD, community-acquired pneumonia, presents with dizziness. Pt was seen for OT consult on 07/11/20 and discharged later that day to return home. GOALS- Unable to assess as pt was seen for OT consult only. 1. Transfers (I) 2. Grooming standing at sink (I) with oral hygiene 3. Bathing standing at sink (I) UE/LE 4. Toileting on toilet (I) 5. Eating (I) PLAN OF CARE/TREATMENT PLAN: Discharge from skilled OT services. DISCHARGE RECOMMENDATIONS Based on pts current level of function OT recommends that pt return home when medically cleared per MD with HH services. TREATMENT TIME/MINUTES/CODES N/A [place] Stan[place]e OTR/L [facility]
== END 2020-07-11 16:30 | disposition home health service (06) | DRG 149 ==
LOC: ER 23:21 → MS 07-09 00:04
PROVIDERS: Admitting Provider Internal Medicine; Emergency Provider Physician Assistant; PCP Internal Medicine; Visit Provider Internal Medicine
DX: H81.313 Aural vertigo, bilateral (principal); D61.818 Other pancytopenia; I67.89 Other cerebrovascular disease; I95.1 Orthostatic hypotension; G62.9 Polyneuropathy, unspecified; I65.23 Occlusion and stenosis of bilateral carotid arteries; G62.1 Alcoholic polyneuropathy; E78.5 Hyperlipidemia, unspecified; I10 Essential (primary) hypertension; F10.11 Alcohol abuse, in remission; J44.9 Chronic obstructive pulmonary disease, unspecified; N40.0 Benign prostatic hyperplasia without lower urinary tract symptoms; K21.9 Gastro-esophageal reflux disease without esophagitis
CPT/HCPCS: 36415; 70496; 70498; 80048; 80053; 80061; 87635; 87798; 93005; 97112; 97162; 97165; 97530; 97535; 99220; 99223; 99232; 99238; 99285; 70551; 71046; 81003; 82607; 82746; 83735; 83880; 84443; 84484; 85025; 86618; 93010; 99226; G0378; J1644

== ENCOUNTER → 2020-07-10 07:51 | Outpatient (BNVA) | payer MEDICARE, OTHER, SELFPAY | PROVIDERS: PCP Family Medicine; Referring Provider Family Medicine; Visit Provider Psychiatry & Neurology Neurology | DX: R69 Illness, unspecified (principal) ==

== ENCOUNTER 2021-06-21 04:20 | Outpatient (CLI) | payer OTHER, SELFPAY ==
--- NOTE | 2021-06-21 | DI.RAD_ITS ---
Exam(s) XR CHEST 2V PA LATERAL EXAM: XR CHEST 2V PA LATERAL CLINICAL HISTORY: SOB, R06.02, ASTHMA,J45.412 TECHNIQUE: 2D digital imaging was performed. COMPARISON: CT CT THORAX ABD/PEL CTA from 06/07/2020 CR,XR XR CHEST 2V PA LATERAL from 07/08/2020 FINDINGS: There are bilateral calcified pleural plaques lungs appear mildly hyperinflated. There are increased interstitial changes. Heart size is normal. No infiltrate, effusion or pulmonary edema is seen. T he spine again shows syndesmophyte formation and stable mild midthoracic compression fractures. IMPRESSION: Pleural plaques. No acute abnormality. DATA REPOSITORY: RADIATION DOSE DELIVERED:
[2021-06-21] MEDS: Albuterol HFA 18 GM 200 PUFF INH IH (10:19)
[2021-06-21] MEDS: Inhaler, Assist Device 1 EACH MC (10:19)
== END 2021-06-21 04:21 | disposition home or self-care (01) ==
PROVIDERS: PCP Internal Medicine; Visit Provider Chiropractor
DX: R06.02 Shortness of breath (principal); J45.998 Other asthma; J92.0 Pleural plaque with presence of asbestos; F17.210 Nicotine dependence, cigarettes, uncomplicated
CPT/HCPCS: 94060; 71046

== ENCOUNTER 2021-07-07 18:17 | Inpatient (IN) | payer OTHER, SELFPAY ==
[2021-07-07] VITALS (46 sets, daily range): BP systolic 110–150; BP diastolic 46–93; PULSE 72–90; RESP 11–25; TEMP 36.6; O2SAT 91–95
--- NOTE | 2021-07-07 18:00 | RT.EKG_ITS ---
APPROVED REPORT Exam: Resting ECG Reason for Exam: syncopal episode Patient Location: E HR:72 bpm ECG Measurements Heart Rate 72 AXIS DC 157 P 70 QRSd 91 QRS 68 QT 370 T 39 QTc 406 Conclusion Sinus rhythm...normal P axis, V-rate 60- 99 sinus rhythm, normal axis, normal intervals, non ischemic
--- NOTE | 2021-07-07 18:45 | DI.RAD_ITS ---
Exam(s) XR THUMB RT EXAM: XR THUMB RT CLINICAL HISTORY: laceration. TECHNIQUE: 2D digital imaging was performed. COMPARISON: No exams were available for comparison FINDINGS: Four views No evidence of acute fracture nor dislocation. No osseous lesions. No radiopaque foreign body. Mil d-moderate degenerative changes in all of the thumb joints, including the 1st carpometacarpal joint. IMPRESSION: Some degenerative changes but no fractures evident. DATA REPOSITORY: RADIATION DOSE DELIVERED:
[2021-07-07 18:59] LABS: Abs Immature Grans 0.12 10^3/uL (0.0-0.06); Absolute Basophil Count 0.09 10^3/uL (0.0-0.2); Absolute Eosinophil Count 0.41 10^3/uL (0.0-0.7); Absolute Lymphocyte Count 1.42 10^3/uL (1.2-3.4); Absolute Monocyte Count 0.72 10^3/uL (0.1-0.8); Basophils % 0.7; Eosinophils % 3.3; HGB 13.3 g/dL (13.5-17.5); Lymphocytes % 11.4; MCH 32.8 pg (27.0-33.0); MCHC 33.3 % (32.0-36.0); MCV 98.5 fL (80-95); MPV 11.5 fL (8.0-11.0); Monocytes % 5.8; Neutrophils % 77.8; Platelet Count 190 10^3/uL (130-400); RBC 4.06 10^6/uL (4.36-5.78); RDW 12.2 % (11.8-14.1); RDW-SD 44.6 fL; WBC 12.46 10^3/uL (4.4-10.8)
[2021-07-07 19:04] LABS: Absolute Neutrophil Count 9.69 10^3/uL (1.2-6.7)
[2021-07-07 19:26] LABS: ETHANOL BLOOD < 3.0 mg/dL (<10)
[2021-07-07 19:30] LABS: ALT 42 U/L (16-63); AST 28 U/L (15-37); Albumin 3.4 g/dL (3.4-5.0); Alkaline Phosphatase 108 U/L (46-116); Anion Gap 5.5 mmol/L (3-11); BUN 14 mg/dL (7-18); Bilirubin, Total 0.4 mg/dL (0.2-1.0); CO2 30.5 mmol/L (21.0-32.0); CREATININE 1.3 mg/dL (0.70-1.30); Calcium 9.2 mg/dL (8.5-10.1); Chloride 104 mmol/L (98-107); Estimated GFR 53.25 (mL/min/1.73m2); Glucose 130 mg/dL (74-106); Magnesium 1.9 mg/dL (1.8-2.4); PHOSPHORUS 2.1 mg/dL (2.6-4.7); Potassium 4.4 mmol/L (3.5-5.1); Sodium 140 mmol/L (136-145); TSH (W/Ref FT4) 1.97 uIU/mL (0.36-3.74); Total Protein 7.3 g/dL (6.4-8.2); Troponin I < 50 ng/L (<or=60)
--- NOTE | 2021-07-07 19:40 | ED.GENADUL_ITS ---
Discharge Plan Disposition Patient Disposition: [facility] INPATIENT Condition: Serious Discharge Details Clinical Impression: Syncope, Thoracic vertebral fracture, Peripheral neuropathy, Laceration of ri ght thumb, Fracture of rib of left side Admit Date/Time: 07/07/21 23:48 Admit Provider: Tyler Earl Attending Provider: Tyler Earl Primary Care Provider: Brad Morrow ED Provider: Yoanna Oconnor Discharge Data Discharge Date/Time-TO BE ENTERED AT DEPARTURE: 07/08/21 01:32 Medical Decision Making Patient has a T11 fracture with rigid spine vertebral body and fracture p.o. his eighth ninth and 10th rib Case was discussed with DR Ellis orthopedist on-call at [facility] and recommendation is for MRI given reduced spine, he states that patient is unable to have MRI this evening recommend bed rest without heparinization for 48 hours Patient is neurologically intact at time of my assessment He is alert and oriented He tolerated the suture placement without incident I did have to transfer patient to [facility] for MRI, however they are unable to accept this patient I [facility] who [facility] to successfully contact to [facility] the patient Patient also was unable to be accepted at [facility] secondary to capacity Therefore patient will stay in the hospital at this time as he is neurologically intact we were able to perform MRI on Friday Should his condition change, he will be reassessed emergently Dr. Earl was agreeable to admitting the patient given age and comorbidities with trauma, recommendation for admission to the hospital, will admit at this facility secondary to limited capacity at other facilities and pt request Medical Records Medical records reviewed: Yes I reviewed the patient's medical records. Lab Data Lab results reviewed: Yes I reviewed the patient's lab results. ECG Data Prior ECG tracings: available for review HPI General Date/Time Provider Initiated Documentation: 07/07/21 18:33 . HPI Narrative: This 81-year-old male presents with reports of syncope. Occurred just prior to arrival. Patient was during symptoms to get a when he states that the entire room with black is the next thing he remembers is waking up on the floor. He denies any chest pain or shortness of breath. He denies any dizziness or weakness. He states that his symptoms were abrupt in onset. He denies any additional complaint this time. He denies any vision change, speech change. He injured his thumb and his back during the fall reportedly. States his tetanus is up-to-date. Denies any urinary complaints. [place] fine prior to the episode. Related Data Home Medications Medication Instructions Recorded Confirmed amlodipine 10 mg tablet 10 mg PO DAILY 10/25/14 07/08/21 omeprazole 20 mg capsule,delayed 40 mg PO DAILY 10/25/14 07/08/21 release folic acid 1 mg tablet 1 mg PO DAILY tab 04/01/15 07/08/21 aspirin 81 mg chewable tablet 81 mg PO DAILY 02/24/16 07/08/21 (Children's Aspirin) atorvastatin 10 mg tablet 10 mg PO DAILY 02/24/16 07/08/21 multivitamin (Daily Multi-Vitamin) 1 tab PO DAILY 02/24/16 07/08/21 vitamin B12 1,000 mcg-folic acid 1 tab PO DAILY 02/24/16 07/08/21 400 mcg sublingual tablet nitroglycerin 0.4 mg sublingual 0.4 mg SUBLINGUAL Q15MIN PRN #21 02/25/16 07/08/21 tablet (Nitrostat) tab albuterol sulfate 90 mcg/actuation 2 puff INHALATION QID PRN 06/07/20 07/08/21 aerosol inhaler loratadine 10 mg tablet 10 mg PO DAILY 06/07/20 07/08/21 furosemide 20 mg tablet 20 mg PO Q OTHER DAY #0 tab 07/11/20 07/08/21 lisinopril 10 mg tablet 10 mg PO QPM #0 tab 07/11/20 07/08/21 magnesium oxide 500 mg tablet 500 mg PO BID #60 tab 07/11/20 07/08/21 meclizine 25 mg tablet 25 mg PO TID PRN #30 tab 07/11/20 potassium chloride 20 mEq 20 meq PO DAILY #30 tab 07/11/20 07/08/21 tablet,extended release tamsulosin 0.4 mg capsule 0.4 mg PO HS #0 cap 07/11/20 07/08/21 trazodone 100 mg tablet 200 mg PO HS #0 tab 07/11/20 07/08/21 Previous Rx's Medication Instructions Recorded folic acid 1 mg tablet 1 mg PO DAILY tab 04/01/15 nitroglycerin 0.4 mg sublingual 0.4 mg SUBLINGUAL Q15MIN PRN #21 02/25/16 tablet (Nitrostat) tab furosemide 20 mg tablet 20 mg PO Q OTHER DAY #0 tab 07/11/20 lisinopril 10 mg tablet 10 mg PO QPM #0 tab 07/11/20 magnesium oxide 500 mg tablet 500 mg PO BID #60 tab 07/11/20 meclizine 25 mg tablet 25 mg PO TID PRN #30 tab 07/11/20 potassium chloride 20 mEq 20 meq PO DAILY #30 tab 07/11/20 tablet,extended release tamsulosin 0.4 mg capsule 0.4 mg PO HS #0 cap 07/11/20 trazodone 100 mg tablet 200 mg PO HS #0 tab 07/11/20 Allergies Allergy/AdvReac Type Severity Reaction Status Date / Time No Known Allergies Allergy Verified 07/07/21 18:30 General Stated Complaint: Dizzy/Sync EDITH: 2 Review of Systems All systems reviewed & are unremarkable except as noted in HPI and below PFSH All Active Problems (Updated 07/08/21 @ 15:49 by ALYSSA Gomes) Syncope (Acute) Abdominal bloating (Chronic) Fracture of rib of left side (Chronic) Laceration of right thumb (Acute) Thoracic vertebral fracture (Acute) Peripheral neuropathy (Chronic) Peripheral vertigo of both ears (Acute) Stenosis of right internal carotid artery (Acute) Discharge planning issues (Acute) DVT prophylaxis (Acute) Dizziness (Acute) Chest pain (Acute) Alcohol abuse (Chronic) Community acquired pneumonia (Acute) COPD (chronic obstructive pulmonary disease) (Chronic) Hyponatremia (Acute) Pancytopenia (Acute) Medical History Alcohol abuse GERD (gastroesophageal reflux disease) HTN (hypertension) Hx of hyperlipidemia Surgical History Fracture of right hip pinning Hx of cholecystectomy Social History Smoking/Tobacco Use Status: Current every day Tobacco Type: cigars Smoking risk assessment performed?: Yes Alcohol Intake: current Alcohol Intake frequency: holidays/special occasions only Drug use: Never Substance use type: does not use Do you feel safe at home: Yes Do you feel safe in your relationship?: Yes Exam Const General: cooperative and no acute distress Orientation: alert and oriented x3 [facility] Head images: 1. hematoma, no hemotympanum Mouth: oral mucosae normal Other: no intraoral trauma, unvula midline Eyes Pupils: PERRL EOM: EOM intact bilaterally Neck Other: no midline tenderness Chest Other: tenderness right chest wall, no crepitus Resp Effort & Inspection: normal respiratory effort Auscultation: clear to auscultation bilaterally Cardio Rate: regular rate Rhythm: regular rhythm GI Other: RUQ tenderness, distension, no visible evidence of trauma Skin Trauma: laceration Neuro General: patient alert and patient oriented x3 Cranial Nerves: CN's II-XI intact bilaterally Cognition: normal cognition Speech: speech normal Motor: muscle tone normal throughout and strength 5/5 throughout Sensory Exam: no sensory deficits noted Extrem Hand/finger images: 1. laceration, no evidence of intraarticular involvement, strength and sensation intact distal cap refill intact Other: distal pulses intact, strength intact to bilateral lower extremities Course Vital Signs Vital signs: Vital Signs Temperature 36.6 C 07/07/21 18:20 Pulse 74 07/07/21 18:20 Respiratory Rate 22 07/07/21 18:20 Blood Pressure 117/53 L 07/07/21 18:20 Pulse Oximetry 92 07/07/21 18:20 Temperature 36.6 C 07/07/21 18:20 Temperature Source Temporal Artery Scan 07/07/21 18:20 Pulse 79 07/07/21 18:31 Pulse 77 07/07/21 19:20 Respiratory Rate 22 07/07/21 19:20 Respiratory Effort 07/07/21 18:48 Respiratory Depth Normal 07/07/21 18:48 Respiratory Pattern Normal 07/07/21 18:48 Blood Pressure 114/56 L 07/07/21 18:31 Blood Pressure Mean 69 07/07/21 18:31 Blood Pressure Position Supine 07/07/21 18:20 Pulse Oximetry 93 07/07/21 19:20 Oxygen Delivery Method Room Air 07/07/21 18:20 Oxygen Flow Rate 0 07/07/21 18:20 Pain Level 8 07/07/21 18:20 Lab/Test Results Lab/Test Results: Laboratory Tests Range/Units 07/07/21 18:45 WBC (4.4-10.8) 10^3/uL 12.46 H RBC (4.36-5.78) 10^6/uL 4.06 L Hgb (13.5-17.5) g/dL 13.3 L Hct (40.0-50.0) % 40.0 MCV (80-95) fL 98.5 H MCH (27.0-33.0) pg 32.8 MCHC (32.0-36.0) % 33.3 RDW (11.8-14.1) % 12.2 Plt Count (130-400) 10^3/uL 190 MPV (8.0-11.0) fL 11.5 H Immature Gran % 1.0 Neutrophils % 77.8 Lymphocytes % 11.4 Monocytes % 5.8 Eosinophils % 3.3 Basophils % 0.7 Nucleated RBC % (0.0-0.3) % 0.0 Absolute Neutrophils (1.2-6.7) 10^3/uL 9.69 H Absolute Lymphocytes (1.2-3.4) 10^3/uL 1.42 Absolute Monocytes (0.1-0.8) 10^3/uL 0.72 Absolute Eosinophils (0.0-0.7) 10^3/uL 0.41 Absolute Basophils (0.0-0.2) 10^3/uL 0.09 Procedures Laceration Laceration 1: Site: hand Side (If applicable): right Size (cm): 2 Description: linear Depth: simple, single layer Local Anesthetic: Lidocaine 1% Amount of anesthesia used (mL): 3 Pre-repair: wound explored, irrigated extensively and wound margins revised Skin layer closed with: nylon Size (cm): 4-0 Number of sutures: 4 Technique: simple, interrupted Subcutaneous layer closed with: vicryl Size: 4-0 Number of sutures: 2 Technique: simple, interrupted
[2021-07-07] MEDS: Normal Saline 500 ML IV (19:41)
[2021-07-07] MEDS: fentaNYL 100 MCG/2 ML VIAL 50 MCG IVP (19:41)
--- NOTE | 2021-07-07 20:20 | DI.CT_ITS ---
Exam(s) CT HEAD CERVICAL SPINE WO EXAM: CT HEAD CERVICAL SPINE WO CLINICAL HISTORY: fall, [place]. TECHNIQUE: Imaging Protocol: Axial computed tomography images with coronal and sagittal reformatted images were created and reviewed COMPARISON: CT CT BRAIN NECK CTA from 07/08/2020 FINDINGS: BRAIN: There is a large left frontal scalp hematoma without evidence of subjacent skull fracture nor intracr anial hemorrhage, intra or extra-axial. Nasal bone fractures are unchanged from 1 year ago (07/08/2020). Also unchanged right medial orbital wall fractures. There is mucosal thickening and some fluid in the left maxillary sinus. There is mild circumferentia l mucosal thickening in the right maxillary sinus again noted. No associated fluid level therein. T here is opacification of the sphenoid sinus again noted. There is no evidence of intracranial hemorrhage, new mass effect, or shift of midline structures. Th ere are no extra-axial fluid collections. The ventricles are not enlarged or shifted and there is no blood within the ventricular system nor within the basal cisterns. There is symmetrical atrophy again noted. CERVICAL SPINE: There is no evidence of fracture nor listhesis. No significant prevertebral soft tissue swelling. Disc space narrowing at C5-6. Multilevel facet arthropathy There is no significant facet joint malalignment. No significant osseous lesions evident. IMPRESSION: Large left frontal scalp hematoma. No acute skull fracture nor intracranial hemorrhage. However, gi adria the size of the scalp hematoma close clinical follow-upis recommend to determine if a repeat CT s can in a few days or week is recommended to rule out delayed onset subdural hematoma. Facial fractures as described above which were evident 1 year ago and appear unchanged. Degenerative changes in the cervical spine but no evidence of acute cervical spine fracture, malalign ment, nor acute compromise of the cervical spinal canal. RADIATION DOSE DELIVERED: 1,672.83mGy.cm Total DLP DATA REPOSITORY: All CT scans at this facility are submitted to the National Radiology Data Registry (NRDR) Dose Index Registry (DIR) with the [employer] (ACR). RADIATION OPTIMIZATION: All CT scans at this facility use at least one of these dose optimization te chniques: automated exposure control; mA and/or kV adjustment per patient size (includes targeted exa ms where dose is matched to clinical indication); or iterative reconstruction.
--- NOTE | 2021-07-07 20:29 | DI.CT_ITS ---
Exam(s) CT THORACIC LUMBAR SPINE WO EXAM: CT THORACIC LUMBAR SPINE WO CLINICAL HISTORY: fall, right sided abdominal and chest pain. TECHNIQUE: Imaging Protocol: Axial computed tomography images with coronal and sagittal reformatted images were created and reviewed. CONTRAST MATERIAL: None COMPARISON: No exams were available for comparison FINDINGS: THORACIC SPINAL COLUMN: Multilevel ligamentous calcification noted. Correlation any history of ankyl osing spondylitis recommended (although there is no ankylosis of the SI joints).. There is calcifica tion in the anterior longitudinal ligament with affective fusion of vertebral bodies between T4 and T 12. There is also spinous process fusion at multiple levels with with inter spinous ligament calcifi cation noted. The anterior longitudinal ligament calcification is discontinuous at T10-T11 level and there is a acu te appearing fracture across the superior aspect of T11, parallel to the superior endplate and best s een on the coronal reconstructed images. No height loss associated although this is most probably re lated to the calcified anterior longitudinal ligament. There is no retropulsed fragment. No evidenc e of epidural hemorrhage. There is, however, some stranding in the posterior mediastinal fat at this level consistent with mild hemorrhage. The adjacent descending thoracic aorta appears intact. Incidentally noted are multiple calcified pleural plaques. LUMBAR SPINAL COLUMN: There is mild depression of the superior endplate of L1, age indeterminate. Al so Schmorl's node invagination at this level noted. Also Schmorl's node invagination and mild superi or endplate depression at L4 level. There is posterior fusion hardware at L4-5 level with bilateral intrapedicular screws at L4 and L5 le vels and an intervertebral disc space divide ower at L4-5 disc space level without retropulsion. Als o posterior decompression laminectomies at this level. No obvious hardware fractures. No significan t listhesis. There is, however, disc space narrowing and moderate spinal canal stenosis at L5-S1 lev el as well as an element of bilateral foraminal narrowing at the L5-S1 level (moderate). There is al so an element of central canal stenosis at L2-3 and L3-4 levels. IMPRESSION: 1. T11 vertebral body fractures described above. This is a rigid-type fracture given the ligamentous calcification. If clinically indicated follow-up MRI can be performed. There is some streaking in the fat anterior to the vertebral body at this level consistent with small hemorrhage associated with the fracture. There is no large paraspinal hematoma. 2. Multilevel ligamentous calcification both anterior longitudinal ligament and interspinous ligament with affective multilevel fusion but with fracture of the calcified anterior longitudinal ligament a t the level of the T11 fracture, as described above. 3. There is no evidence of ankylosis of the sacroiliac joints to suggest that these findings are rela porfirio to obvious ankylosing spondylitis. 4. 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 5. Fusion hardware at L4-5 level as described above. No acute fractures at this level. 6. Foraminal narrowing bilaterally at L5-S1 level evident. Also element of central canal stenosis at L2-3, L3-4, and L5-S1 levels. RADIATION DOSE DELIVERED: 1,358.96mGy.cm Total DLP DATA REPOSITORY: All CT scans at this facility are submitted to the National Radiology Data Registry (NRDR) Dose Index Registry (DIR) with the [employer] (ACR). RADIATION OPTIMIZATION: All CT scans at this facility use at least one of these dose optimization te chniques: automated exposure control; mA and/or kV adjustment per patient size (includes targeted exa ms where dose is matched to clinical indication); or iterative reconstruction.
--- NOTE | 2021-07-07 20:43 | DI.VRAD_ITS ---
PROCEDURE INFORMATION: Exam: XR Right Finger(s) Exam date and time: 07/07/2021 8:07 PM Age: 81 years old Clinical indication: Injury or trauma; Fall; Blunt trauma (contusions or hematomas); Finger; Right; Thumb TECHNIQUE: Imaging protocol: XR Right fingers. Views: Minimum 2 views. COMPARISON: No relevant prior studies available. FINDINGS: Bones/joints: No evidence of fracture. Negative for dislocation. Negative for bony erosion or destructive change. Bone mineralization appears low. Mild narrowing, sclerosis, and osteophytes are noted in the CMC, MCP, and IP joints. Soft tissues: Negative for soft tissue air. No foreign bodies observed. Soft tissue swelling noted in the thumb. IMPRESSION: No acute osseous abnormality. If symptoms persist, follow-up imaging is advised. Dictated and Authenticated by: Catracho Resendiz MD. Ordering:RICKI Lenz MD
--- NOTE | 2021-07-07 20:46 | DI.CT_ITS ---
Exam(s) CT CHEST/ABD/PEL W EXAM: CT CHEST/ABD/PEL W CLINICAL HISTORY: fall, pain. TECHNIQUE: Imaging Protocol: Axial computed tomography images with coronal and sagittal reformatted images were created and reviewed CONTRAST MATERIAL: Intravenous: Omnipaque 350 Contrast volume:100 ml Oral: None COMPARISON: CT CT BRAIN NECK CTA from 07/08/2020 FINDINGS: CHEST: LUNGS: There are multiple bilateral calcified pleural plaques not associated with rib destruction nor pleural effusions. No evidence of significant infiltrates nor ominous pulmonary nodules. No signif icant focal findings in the trachea and mainstem bronchi.. No evidence of lung contusion MEDIASTINUM: No evidence of sternal fracture or mediastinal hematoma. No hilar nor mediastinal adeno kayla. Partially visualized thyroid unremarkable.Gynecomastia, slightly more prominent on the left s sav. CARDIAC: Heart size is normal. There is no pericardial effusion.Caliber of the thoracic aorta is wit hin normal limits. OSSEOUS: There are healed fractures of the left 8th, 9th, and 10th ribs. No acute appearing rib frac tures.There is an acute T11 fracture without significant height loss due to the multilevel partial fu sions from calcification of the inter osseous ligaments. There is a break in the corresponding anter ior longitudinal ligament calcification at this level. No evidence of acute compromise of the spinal canal at this level. ABDOMEN: There is no ascites. LIVER: Unremarkable. No laceration. No lesions. GALLBLADDER/BILIARY: Gallbladder is not seen and is presumed to be surgically absent. Intrahepatic d ucts are not dilated. CBD is not dilated. PANCREAS: No evidence of pancreatic mass nor dilatation of the pancreatic duct. SPLEEN: No splenic laceration. Spleen size normal. No splenic lesions nor calcifications. Splenic and portal veins are patent. ADRENALS: Bilateral small adrenal nodules are noted which are probably adenomas. KIDNEYS: There are multiple benign cysts in both kidneys, the largest being in the superior pole of t he left kidney and measuring 5 by 3.8 cm. No solid renal masses. No renal lacerations. There are 2 nonobstructive small calculi in the right kidney and a single nonobstructive calculus in the left ki dney.. No solid renal masses. ABDOMINAL AORTA: Intact but heavily calcified and atherosclerotic and with moderate luminal stenosis as well as heavy calcification at the origin of the superior mesenteric and bilateral renal arteries. The inferior mesenteric artery is patent. Common iliac arteries are heavily calcified and atherosc lerotic but not enlarged. External iliac arteries and common femoral arteries are also heavily calci fied-atherosclerotic. LYMPH NODES: There is no retroperitoneal nor paraaortic adenopathy. ABDOMINAL WALL: No evidence of significant anterior abdominal wall nor inguinal hernia. GI: Colon is collapsed. No Rut colonic streaking evident. In the lower left abdomenthere are few j ejunal loops which exhibits some fold thickening and there is some mild haziness in the adjacent mese ntery. PELVIS: LYMPH NODES: There is no intrapelvic nor inguinal adenopathy. GI: No evidence of appendicitis.No evidence of sigmoid diverticulitis. URINARY BLADDER: Bladder wall is uniformly thickened to approximately 9 millimeters. Does not appear to contain calculi nor obvious distinct mass. No gas in the bladder wall. Bladder is not distended . REPRODUCTIVE: Prostate is not enlarged. There is a penile prosthesis with a collapsed left of center reservoir adjacent left side of the urinary bladder. OSSEOUS: See separate spine CP report today. T11 fracture. No acute appearing fractures in the lumb osacral vertebra bodies. There is fusion hardware at L4-5 level. Hardware evident in the left hip. IMPRESSION: 1. T11 vertebral body fracture without height loss due to the rigidity caused by the (multilevel) lig ament calcification. Please see separate thoracic spine CT dictation performed today. Healed left-s ided rib fractures 8 through 10 but no acute rib fractures evident. No pneumothorax 2. Calcified pleural plaques bilaterally. Question prior asbestos related exposure. No pleural effu sions. No lung contusions no infiltrate. Pleural effusions. 3. No evidence of solid organ injury nor evidence of bowel wall hematoma. 4. Multiple benign cysts in the kidneys measuring up to 5 cm. No solid renal masses. No lacerations of the kidneys nor subcapsular hematomas. There are nonobstructive calculi evident in both kidneys. No calculi evident in the nondilated ureters and nondistended urinary bladder. 5. Advanced atherosclerotic disease of the abdominal aorta and aortoiliac segments. Also heavy calc ification associated with atherosclerotic disease at the origin of the superior mesenteric artery and bilateral renal arteries. Kidneys both exhibit normal size. 6. There appears to be an enteritis pattern involving few jejunal loops. Some mesenteric streaking but no free fluid. 7. Circumferential bladder wall thickening which may be exaggerated by under distension but may also be related to chronic cystitis versus bladder outlet obstruction (although the prostate gland does n ot appear to be obviously enlarged. 8. Penile prosthesis noted. Collapse and peripherally calcified reservoir in the left side of the p kimberly. RADIATION DOSE DELIVERED: 1,419.49mGy.cm Total DLP DATA REPOSITORY: All CT scans at this facility are submitted to the National Radiology Data Registry (NRDR) Dose Index Registry (DIR) with the [employer] (ACR). RADIATION OPTIMIZATION: All CT scans at this facility use at least one of these dose optimization te chniques: automated exposure control; mA and/or kV adjustment per patient size (includes targeted exa ms where dose is matched to clinical indication); or iterative reconstruction.
[2021-07-07] MEDS: Omnipaque 350 MG/ML 100 ML BTL IJ (21:08)
--- NOTE | 2021-07-07 21:29 | DI.VRAD_ITS ---
PROCEDURE INFORMATION: Exam: CT Head Without Contrast Exam date and time: 07/07/2021 8:00 PM Age: 81 years old Clinical indication: Injury or trauma; Swelling (edema); Sprain or strain, cervical ligaments; Patient HX: S/P fall, hi TECHNIQUE: Imaging protocol: Computed tomography of the head without contrast. Radiation optimization: All CT scans at this facility use at least one of these dose optimization techniques: automated exposure control; mA and/or kV adjustment per patient size (includes targeted exams where dose is matched to clinical indication); or iterative reconstruction. COMPARISON: 1. MR BRAIN WO 07/10/2020 8:31 AM, CT brain and neck, July 08, 2020. 2. CT HEAD AND CSPINE W/O CONTRAST 03/30/2015 10:51 PM FINDINGS: Brain: No acute intracranial hemorrhage, mass-effect, midline shift, or extra-axial collection is seen. The rhodes white matter differentiation appears preserved. There is symmetric parenchymal volume loss. Cerebral ventricles: The ventricular system and basilar cisterns appear appropriate in size and configuration. Paranasal sinuses: There is extensive patchy mucoperiosteal thickening and fluid throughout the paranasal sinuses. Mastoid air cells: There is opacification of a few inferior right mastoid air cells. The left mastoid air cells appear clear. Auditory system: The middle ear cavities appear clear. Orbital cavities: The globes and intraorbital structures appear grossly intact. Bones/joints: There are old bilateral nasal bone fractures, also seen on the comparison exam from July 08, 2020. There is stable old leftward deviation of the nasal septum. The bony calvarium appears intact. No depressed skull fracture is seen. There is an old right medial orbital wall blowout fracture. Soft tissues: There is a prominent left frontal scalp contusion/hematoma. IMPRESSION: 1. No acute intracranial hemorrhage or depressed skull fracture. 2. Presumed chronic microvascular ischemic change. 3. Symmetric parenchymal volume loss. 4. Extensive mucoperiosteal thickening and fluid in the paranasal sinuses. Acute on chronic sinusitis could have this appearance. Clinical correlation is recommended. PROCEDURE INFORMATION: Exam: CT Cervical Spine Without Contrast Exam date and time: 07/07/2021 8:00 PM Age: 81 years old Clinical indication: Injury or trauma; Swelling (edema); Sprain or strain, cervical ligaments; Patient HX: S/P fall, hi TECHNIQUE: Imaging protocol: Computed tomography images of the cervical spine without contrast. Radiation optimization: All CT scans at this facility use at least one of these dose optimization techniques: automated exposure control; mA and/or kV adjustment per patient size (includes targeted exams where dose is matched to clinical indication); or iterative reconstruction. COMPARISON: 1. MR BRAIN WO 07/10/2020 8:[address] HEAD AND CSPINE W/O CONTRAST 03/30/2015 10:51 PM FINDINGS: Vertebrae: No acute cervical fracture or malalignment is seen. C1-C2: Complete loss of joint space between the anterior arch of C1 and the odontoid process of C2 with associated productive osteophyte formation but no significant cervical stenosis. C2-C3: Disc height relatively preserved. Moderate bilateral facet arthrosis. Small broad-based posterior disc bulge abutting and mildly deforming the thecal sac. Mild central canal narrowing. No significant left-sided foraminal narrowing. Minimal right-sided foraminal narrowing. C3-C4: Disc height preserved. Severe left-sided facet arthrosis. Mild central canal narrowing. Moderate right and moderate-severe left-sided foraminal narrowing. C4-C5: Disc height preserved. Moderate-severe bilateral foraminal narrowing. No significant cervical stenosis. Mild right and moderate left-sided foraminal narrowing. C5-C6: Disc height preserved. Anterior osteophytes. Posterior osteophytic ridging with uncovertebral hypertrophy on the right. Moderate-severe left-sided facet arthrosis. No significant cervical stenosis. Moderate bilateral foraminal narrowing. C6-C7: Loss of disc height with calcification in the disc space suggesting partial fusion across the disc space. Large anterior osteophytes. Posterior osteophytic ridging with bilateral uncovertebral hypertrophy. Mild central canal narrowing. Moderate left and moderate-severe right-sided foraminal narrowing. C7-T1: No significant cervical stenosis or right-sided foraminal narrowing. Mild left-sided foraminal narrowing. Soft tissues: Within the limits of the exam, no gross soft tissue fluid collection is seen in the neck. Thyroid: The thyroid gland appears normal in size. Vasculature: There is atherosclerotic calcification at the carotid bifurcations bilaterally. Lungs: There are emphysematous changes at the lung apices. IMPRESSION: No acute cervical fracture or malalignment is seen. Dictated and Authenticated by: Olu Dow MD. Ordering:RICKI Lenz MD
--- NOTE | 2021-07-07 21:32 | DI.VRAD_ITS ---
PROCEDURE INFORMATION: Exam: CT Chest With Contrast; Diagnostic Exam date and time: 07/07/2021 8:42 PM Age: 81 years old Clinical indication: Abdominal pain; Generalized; Right-sided; Patient HX: S/P fall, right sided abdominal and chest pain. TECHNIQUE: Imaging protocol: Diagnostic computed tomography of the chest with contrast. 3D rendering (Not supervised by radiologist): MIP and/or 3D reconstructed images were created by the technologist. Radiation optimization: All CT scans at this facility use at least one of these dose optimization techniques: automated exposure control; mA and/or kV adjustment per patient size (includes targeted exams where dose is matched to clinical indication); or iterative reconstruction. Contrast material: OMNI-PAQUE 350; Contrast volume: 100 ml; Contrast route: INTRAVENOUS (IV); COMPARISON: 1. CT THORAX ABD/PEL CTA 06/07/2020 3:55 PM 2. CR XR CHEST 2V PA LATERAL 06/21/2021 9:23 AM FINDINGS: Thyroid: Normal thyroid. Lungs: No consolidation or ground-glass opacity. Irregular bronchial thickening and reticulation noted in the lingula. No significant endobronchial mucus. Pleural spaces: No pleural effusion or pneumothorax. Moderate calcified pleural plaques noted bilaterally. Heart: No cardiomegaly. No pericardial effusion. Moderate coronary artery calcifications. Lymph nodes: Unremarkable. No enlarged lymph nodes. Aorta: Negative for aortic dissection. Moderate plaque present. Bones/joints: Chronic fractures with callus noted at the left 8th, 9th, and 10th ribs. There are no acute rib fractures observed. A fracture at T11 is noted; please see CT thoracic spine dictated separately. Soft tissues: Moderate gynecomastia. Negative for chest wall hematoma or soft tissue air. IMPRESSION: 1. Rigid spine fracture at T11. Please see CT thoracic spine dictated separately. 2. No acute intrathoracic injury. 3. Calcified pleural plaques bilaterally. Question asbestos exposure and/or fibrothorax. PROCEDURE INFORMATION: Exam: CT Abdomen And Pelvis With Contrast Exam date and time: 07/07/2021 8:42 PM Age: 81 years old Clinical indication: Abdominal pain; Generalized; Right-sided; Patient HX: S/P fall, right sided abdominal and chest pain. TECHNIQUE: Imaging protocol: Computed tomography of the abdomen and pelvis with contrast. 3D rendering (Not supervised by radiologist): MIP and/or 3D reconstructed images were created by the technologist. Radiation optimization: All CT scans at this facility use at least one of these dose optimization techniques: automated exposure control; mA and/or kV adjustment per patient size (includes targeted exams where dose is matched to clinical indication); or iterative reconstruction. Contrast material: OMNI-PAQUE 350; Contrast volume: 100 ml; Contrast route: INTRAVENOUS (IV); COMPARISON: 1. CT THORAX ABD/PEL CTA 06/07/2020 3:55 PM 2. CR XR CHEST 2V PA LATERAL 06/21/2021 9:23 AM FINDINGS: Tubes, catheters and devices: Penile implant noted with tubing and reservoir implanted on the left. Lungs: Please see CT chest dictated separately. Liver: Fatty liver. No laceration. No mass. Gallbladder and bile ducts: Nonvisualized gallbladder. No ductal dilatation. Pancreas: Normal pancreas. No laceration. No fluid collection. Spleen: Normal spleen. No laceration or hematoma. Adrenal glands: Bilateral benign adrenal adenoma is unchanged. Kidneys and ureters: Negative for renal laceration or hematoma. Multiple cysts are present, up to 4.5 cm. Nonobstructing stones are present bilaterally, up to 4 mm. Ureters are not dilated. Stomach and bowel: Duodenal diverticulum noted near the ampulla. No inflammatory changes. Unremarkable stomach. Nondilated small bowel. Mild wall thickening and luminal fluid are noted through the jejunum proximal ileum. Terminal ileum is normal. Minimal stool observed in the colon. Fat planes around loops of small bowel are indistinct. There are no inflammatory changes observed around the colon. Appendix: No evidence of appendicitis. Intraperitoneal space: Mild mesenteric fat stranding. No significant free fluid. Negative for free air. Negative for abscess. Arteries: Negative for aneurysm. Moderate-severe vascular calcifications present. Mild aortic stenosis. Sites of iliac and femoral arterial stenosis noted bilaterally. Severe stenosis noted in the superior mesenteric artery. Stenosis also noted in renal arteries bilaterally. Lymph nodes: Mesenteric lymph nodes are mildly prominent. Negative for pathologic lymphadenopathy. Urinary bladder: Bladder is collapsed. Urinary bladder enrique are thick, up to 12 mm. No stones observed. Reproductive: Mildly large prostate. Bones/joints: Postoperative changes noted L4-L5. Please see lumbar spine CT dictated separately. Hardware noted in the proximal left femur. Mild narrowing and osteophyte formation noted in both hips. Heterotopic ossification noted around the left femur. Soft tissues: Unremarkable. IMPRESSION: 1. Negative for acute solid organ injury. 2. Findings of enteritis with reactive mesenteric inflammation. 3. Severe vascular disease. 4. Severe stenosis superior mesenteric artery. 5. Additional sites of stenosis in the renal, iliac, and femoral arteries. 6. Chronic cystitis versus bladder outlet obstruction. Dictated and Authenticated by: Catracho Resendiz MD. Ordering:RICKI Lenz MD
[2021-07-07 21:52] LABS: Troponin I < 50 ng/L (<or=60)
--- NOTE | 2021-07-07 21:58 | DI.VRAD_ITS ---
PROCEDURE INFORMATION: Exam: CT Thoracic Spine Without Contrast Exam date and time: 07/07/2021 8:27 PM Age: 81 years old Clinical indication: Low back pain; Pain in thoracic spine; Without myelpathy or radiculopathy; Patient HX: S/P fall, pain TECHNIQUE: Imaging protocol: Computed tomography images of the thoracic spine without contrast. Radiation optimization: All CT scans at this facility use at least one of these dose optimization techniques: automated exposure control; mA and/or kV adjustment per patient size (includes targeted exams where dose is matched to clinical indication); or iterative reconstruction. COMPARISON: 1. CT HEAD CERVICAL SPINE WO 07/07/2021 8:[address] THORAX ABD/PEL CTA 06/07/2020 3:55 PM FINDINGS: Vertebrae: Exaggerated thoracic kyphosis. Anterior ligamentous ossification and fusion of vertebral bodies noted between T4-T12. The anterior ligamentous ossification is discontinuous at T11-T10. Spinous processes are fused at several levels. Inter spinous ligamentous ossification noted. Depression of the superior endplate at L1 is noted. Fracture noted across the superior T11 vertebral body, parallel to the endplate. This is best appreciated on the coronal imaging. Please see parts counter representative coronal image 55. There is no loss of height. Bone mineralization appears low. Discs/Spinal canal/Neural foramina: Moderate disc space narrowing with endplate sclerosis and osteophytes at C6-C7. Negative for spinal canal stenosis. Soft tissues: Mild fat stranding noted in the posterior mediastinum adjacent to the T11 level, likely hemorrhage. No specific hematoma observed. Lungs: Calcified pleural plaques noted in both lungs. Please see CT chest dictated separately. Other findings: Negative for retropulsion. IMPRESSION: 1. Rigid spine fracture at T11. 2. No spinal canal stenosis. PROCEDURE INFORMATION: Exam: CT Lumbar Spine Without Contrast Exam date and time: 07/07/2021 8:27 PM Age: 81 years old Clinical indication: Low back pain; Pain in thoracic spine; Without myelpathy or radiculopathy; Patient HX: S/P fall, pain TECHNIQUE: Imaging protocol: Computed tomography images of the lumbar spine without contrast. Radiation optimization: All CT scans at this facility use at least one of these dose optimization techniques: automated exposure control; mA and/or kV adjustment per patient size (includes targeted exams where dose is matched to clinical indication); or iterative reconstruction. COMPARISON: 1. CT HEAD CERVICAL SPINE WO 07/07/2021 8:[address] THORAX ABD/PEL CTA 06/07/2020 3:55 PM FINDINGS: Vertebrae: Depression noted at the superior L1 endplate. Mild endplate depression also noted at the superior L4 endplate. Posterior fusion with transpedicular screws noted at L4-L5, with posterior decompression laminectomies. Interbody fusion device is appropriate in position at L4-L5. There are no hardware complications observed. Negative for anterior or posterior translation of vertebral bodies. Discs/Spinal canal/Neural foramina: Moderate disc space narrowing and disc osteophyte complex noted at L5-S1. Moderate-severe spinal canal stenosis noted L5-S1. Neural foraminal narrowing noted L5-S1 bilaterally, moderate-severe. Moderate spinal canal stenosis also noted at L2-L3 and L3-L4. Sacrum/coccyx: Normal sacroiliac joints. Intraperitoneal space: Axial images are available under the CT abdomen pelvis study. Vasculature: Moderate-severe vascular calcifications. Soft tissues: Please see CT abdomen pelvis dictated separately. IMPRESSION: 1. No evidence of acute lumbar spine fracture. 2. Postoperative changes including posterior fusion/decompression at L4-L5. 3. 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 4. Spinal canal stenosis L2-L3, L3-L4, and L5-S1. 5. Neural foraminal narrowing at L5-S1 bilaterally. Dictated and Authenticated by: Catracho Resendiz MD. Ordering:RICKI Lenz MD
[2021-07-07 22:23] LABS: Bilirubin Negative (Negative); Blood Negative (Negative); Clarity Clear (Clear); Glucose Negative (Negative); Ketones Negative (Negative); Leukocyte Esterase Negative (Negative); Nitrite Negative (Negative); Urobilinogen 0.2 EU/dL (Up TO 0.2)
[2021-07-07] MEDS: MORPHine 4 MG/ML SYR (22:26)
[2021-07-07 22:47] LABS: RBC Negative HPF (0-2); WBC Negative HPF (0-5)
[2021-07-07 22:48] LABS: Bacteria Negative HPF (Negative); C & S Indicated? No; Casts 0-2 Hyaline LPF (Negative); Crystals Mod Calcium Oxalate HPF (Negative); Epithelial Cells Negative HPF (Negative); Mucus Moderate (Negative)
[2021-07-07] MEDS: Lidocaine 1% Multi-Dose 50 ML VIAL (23:17)
--- NOTE | 2021-07-07 23:46 | HPE_ITS ---
Date of service: 07/07/21 Time of Service: 23:47 Assessment and Plan Assessment and plan (1) Thoracic vertebral fracture: Start date: 07/07/21 Status: Acute Assessment and plan: This is a 81-year-old gentleman who fell in his kitchen striking his head and involves his back sustaining a closed fracture of the T11 vertebral body which needs further investigation prior to treatment plan. He will require MRI of the spine for further delineation of the fracture which appears to go through the body and to assess for stability. [facility] otherwise he will be at bedrest with pain management until MRI can be obtained 07/09/2021. He has no focal neurological deficit and does not appear to be neurologically compromised at this time. There were no recommendation for body brace at this time. PT and OT will evaluate patient as allowed. Patient does have history of alcoholism in the past but states he has not drunk for more than a year. He does have old left rib fractures which are nontender. There is no explanation for his syncopal episode which should be further evaluated. (2) Syncope: Start date: 07/07/21 Status: Acute Assessment and plan: Cardiac monitoring and trending troponins which have been negative. Patient does have a history of alcohol abuse but has not been drinking recently. If no cardiac event consider further neurological evaluation though the patient did not seem to have seizures at the time of his syncopal episode. It was sudden onset without warning. Further history may be helpful as patient remembers his events prior to syncope There is no amnesia reported. (3) Laceration of right thumb: Start date: 07/07/21 Status: Acute Assessment and plan: Wound care with patient having sutures. These will need to be removed within 7 to 10 days. Continue bandage for now. (4) COPD (chronic obstructive pulmonary disease): Status: Chronic Assessment and plan: Continue oxygen as needed with respiratory treatments. (5) Fracture of rib of left side: Status: Chronic Assessment and plan: Patient has evidence of other recent fall with old left healing rib fractures and no discomfort over that area. He may have been drinking alcohol more rec ently than reported. (6) Abdominal bloating: Status: Chronic Assessment and plan: Patient does have a prominent abdomen which is soft but uncomfortable with deep palpation. CT does not reveal possible enteritis with mesenteric reaction and patient stated he is scheduled to have endoscopy to further evaluate the [facility]. He has been eating and drinking without increased bloating though at times he has dark stools. He is not anemic. This is not a problem with which he presented is chronic and ongoing. Monitor while in the hospital. He does also have evidence of renal lithiasis. He does not have any symptoms of renal colic. Observe during the hospital stay. History of Present Illness History of Present Illness Chief Complaint: Syncopal episode with back pain N arrative: This is a 81-year-old male patient who is a [facility] who was cooking spaghetti sauce in his kitchen the night of admission when things suddenly went black and he awakened on the floor. He did injure his back and right side during his fall but was not incontinent of urine or stool and did not bite his tongue. He was fully awake and oriented after the event. He denies any chest pain or shortness of breath and had no dizziness or presyncopal symptoms. The event was abrupt and he has had no similar events in the past. The patient lives in senior apartments and has a small kitchen and is assuming that he fell forward hitting the left side of his forehead where he has a slight swelling and pain and then fell backward injuring his right thumb which required laceration repair and injury to his right ribs which he did not realize he had fractured when I vi sited him. His back pain is the predominant presently. After his fall, he crawled on the floor to the the door of his apartment and opened it yelling in the hallway with a neighbor calling EMS. In the ED the patient was found to have a rigid T11 vertebral body fracture which [facility] [place]opedic consultation recommended complete bedrest with MRI of the spine for further evaluation for instability. Patient was also found to have old left 8 through 10 rib fractures which were healing with callus formation. Patient's back pain was responding to IV morphine and oxycodone. Patient will not be able to ambulate until MRI is performed. He will be admitted for complete bedrest and observation until MRI can be obtained. He is [facility] would [facility] him while awaiting further imaging. The [facility] was not reachable through the ED the night of admission. Review of Systems Narrative: The patient recently has been having some abdominal bloating but has not had any vomiting, decreased appetite or problems passing stool though at times his stool is black. This is being evaluated by the [facility]. 13 point review of systems otherwise unrevealing or stable. 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) Discharge planning issues (Acute) DVT prophylaxis (Acute) Dizziness (Acute) Chest pain (Acute) Alcohol abuse (Chronic) Community acquired pneumonia (Acute) COPD (chronic obstructive pulmonary disease) (Chronic) Hyponatremia (Acute) Pancytopenia (Acute) Medical History Alcohol abuse GERD (gastroesophageal reflux disease) HTN (hypertension) Hx of hyperlipidemia Surgical History Fracture of right hip pinning Hx of cholecystectomy Social History Smoking/Tobacco Use Status: Current every day Tobacco Type: cigars Smoking risk assessment performed?: Yes Alcohol Intake: current Alcohol Intake frequency: holidays/special occasions only Drug use: Never Substance use type: does not use Do you feel safe at home: Yes Do you feel safe in your relationship?: Yes Meds Allergies and Home Medications Allergies Allergy/AdvReac Type Severity Reaction Status Date / Time No Known Allergies Allergy Verified 07/07/21 18:30 Home Medications Medication Instructions Recorded Confirmed Type amlodipine 10 mg tablet 10 mg PO DAILY 10/25/14 07/08/21 History omeprazole 20 mg capsule,delayed 40 mg PO DAILY 10/25/14 07/08/21 History release folic acid 1 mg tablet 1 mg PO DAILY tab 04/01/15 07/08/21 Rx aspirin 81 mg chewable tablet 81 mg PO DAILY 02/24/16 07/08/21 History (Children's Aspirin) atorvastatin 10 mg tablet 10 mg PO DAILY 02/24/16 07/08/21 History multivitamin (Daily Multi-Vitamin) 1 tab PO DAILY 02/24/16 07/08/21 History vitamin B12 1,000 mcg-folic acid 1 tab PO DAILY 02/24/16 07/08/21 History 400 mcg sublingual tablet nitroglycerin 0.4 mg sublingual 0.4 mg SUBLINGUAL Q15MIN PRN #21 02/25/16 07/08/21 Rx tablet (Nitrostat) tab albuterol sulfate 90 mcg/actuation 2 puff INHALATION QID PRN 06/07/20 07/08/21 History aerosol inhaler loratadine 10 mg tablet 10 mg PO DAILY 06/07/20 07/08/21 History furosemide 20 mg tablet 20 mg PO Q OTHER DAY #0 tab 07/11/20 07/08/21 Rx lisinopril 10 mg tablet 10 mg PO QPM #0 tab 07/11/20 07/08/21 Rx magnesium oxide 500 mg tablet 500 mg PO BID #60 tab 07/11/20 07/08/21 Rx meclizine 25 mg tablet 25 mg PO TID PRN #30 tab 07/11/20 Rx potassium chloride 20 mEq 20 meq PO DAILY #30 tab 07/11/20 07/08/21 Rx tablet,extended release tamsulosin 0.4 mg capsule 0.4 mg PO HS #0 cap 07/11/20 07/08/21 Rx trazodone 100 mg tablet 200 mg PO HS #0 tab 07/11/20 07/08/21 Rx Exam Narrative Exam Narrative: General: Patient appears older than stated age, alert and oriented x3 in no acute distress while lying on his back in bed. He is moderately obese. He does have a prominent abdominal girth. HEENT: Normocephalic, tender to palpation with slight swelling over left frontoparietal area scalp with some bruising but no skin breakdown, eyes with pupils equal and reactive to light symmetrically, extraocular movement intact and sclera anicteric. Oropharynx with moist mucosa and patient is edentulous. Neck: Supple without JVD. Back: Patient was examined lying flat in bed complains of tenderness over his mid back. Chest: No tenderness to compression of the chest wall. Lungs: Bronchovesicular breath sounds diffusely with fair aeration and no focalized rales or rhonchi. Heart: Regular rate and rhythm with distant heart sounds, no appreciable murmur or gallop. Abdomen: Protuberant but soft with bowel sounds positive but hypoactive diffusely. No focalizing tenderness but slight guarding to deep palpation diffusely. No appreciable hepatosplenomegaly. Genitalia/rectal: Exam deferred. Patient does have Kingsley catheter in place with circumcised penis. Extremities: Without clubbing, cyanosis or edema. Right thumb has bandage where he has had laceration repaired per patient. Skin: Normal color, warm and dry. Neuro: No focalizing motor deficits. Reflexes symmetrical and intact. No movement. Cranial nerves II through XII grossly intact. Psych: Normal affect and mood. No abnormal thought processes. Remote and recent memory intact. Results Imaging Imaging Studies: Exam: CT Thoracic Spine Without Contrast Exam date and time: 07/07/2021 8:27 PM Age: 81 years old Clinical indication: Low back pain; Pain in thoracic spine; Without myelpathy or radiculopathy; Patient HX: S/P fall, pain TECHNIQUE: Imaging protocol: Computed tomography images of the thoracic spine without contrast. Radiation optimization: All CT scans at this facility use at least one of these dose optimization techniques: automated exposure control; mA and/or kV adjustment per patient size (includes targeted exams where dose is matched to clinical indication); or iterative reconstruction. COMPARISON: 1. CT HEAD CERVICAL SPINE WO 07/07/2021 8:[address] THORAX ABD/PEL CTA 06/07/2020 3:55 PM FINDINGS: Vertebrae: Exaggerated thoracic kyphosis. Anterior ligamentous ossification and fusion of vertebral bodies noted between T4-T12. The anterior ligamentous ossification is discontinuous at T11-T10. Spinous processes are fused at several levels. Inter spinous ligamentous ossification noted. Depression of the superior endplate at L1 is noted. Fracture noted across the superior T11 vertebral body, parallel to the endplate. This is best appreciated on the coronal imaging. Please see rental representative coronal image 55. There is no loss of height. Bone mineralization appears low. Discs/Spinal canal/Neural foramina: Moderate disc space narrowing with endplate sclerosis and osteophytes at C6-C7. Negative for spinal canal stenosis. Soft tissues: Mild fat stranding noted in the posterior mediastinum adjacent to the T11 level, likely hemorrhage. No specific hematoma observed. Lungs: Calcified pleural plaques noted in both lungs. Please see CT chest dictated separately. Other findings: Negative for retropulsion. IMPRESSION: 1. Rigid spine fracture at T11. 2. No spinal canal stenosis. PROCEDURE INFORMATION: Exam: CT Lumbar Spine Without Contrast Exam date and time: 07/07/2021 8:27 PM Age: 81 years old Clinical indication: Low back pain; Pain in thoracic spine; Without myelpathy or radiculopathy; Patient HX: S/P fall, pain TECHNIQUE: Imaging protocol: Computed tomography images of the lumbar spine without contrast. Radiation optimization: All CT scans at this facility use at least one of these dose optimization techniques: automated exposure control; mA and/or kV adjustment per patient size (includes targeted exams where dose is matched to clinical indication); or iterative reconstruction. COMPARISON: 1. CT HEAD CERVICAL SPINE WO 07/07/2021 8:[address] THORAX ABD/PEL CTA 06/07/2020 3:55 PM FINDINGS: Vertebrae: Depression noted at the superior L1 endplate. Mild endplate depression also noted at the superior L4 endplate. Posterior fusion with transpedicular screws noted at L4-L5, with posterior decompression laminectomies. Interbody fusion device is appropriate in position at L4-L5. There are no hardware complications observed. Negative for anterior or posterior translation of vertebral bodies. Discs/Spinal canal/Neural foramina: Moderate disc space narrowing and disc osteophyte complex noted at L5-S1. Moderate-severe spinal canal stenosis noted L5-S1. Neural foraminal narrowing noted L5-S1 bilaterally, moderate-severe. Moderate spinal canal stenosis also noted at L2-L3 and L3-L4. Sacrum/coccyx: Normal sacroiliac joints. Intraperitoneal space: Axial images are available under the CT abdomen pelvis study. Vasculature: Moderate-severe vascular calcifications. Soft tissues: Please see CT abdomen pelvis dictated separately. IMPRESSION: 1. No evidence of acute lumbar spine fracture. 2. Postoperative changes including posterior fusion/decompression at L4-L5. 3. 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 4. Spinal canal stenosis L2-L3, L3-L4, and L5-S1. 5. Neural foraminal narrowing at L5-S1 bilaterally. Dictated and Authenticated by: Catracho Resendiz MD. Exam: CT Chest With Contrast; Diagnostic Exam date and time: 07/07/2021 8:42 PM Age: 81 years old Clinical indication: Abdominal pain; Generalized; Right-sided; Patient HX: S/P fall, right sided abdominal and chest pain. TECHNIQUE: Imaging protocol: Diagnostic computed tomography of the chest with contrast. 3D rendering (Not supervised by radiologist): MIP and/or 3D reconstructed images were created by the technologist. Radiation optimization: All CT scans at this facility use at least one of these dose optimization techniques: automated exposure control; mA and/or kV adjustment per patient size (includes targeted exams where dose is matched to clinical indication); or iterative reconstruction. Contrast material: OMNI-PAQUE 350; Contrast volume: 100 ml; Contrast route: INTRAVENOUS (IV);? COMPARISON: 1. CT THORAX ABD/PEL CTA 06/07/2020 3:55 PM 2. CR XR CHEST 2V PA LATERAL 06/21/2021 9:23 AM FINDINGS: Thyroid: Normal thyroid. Lungs: No consolidation or ground-glass opacity. Irregular bronchial thickening and reticulation noted in the lingula. No significant endobronchial mucus. Pleural spaces: No pleural effusion or pneumothorax. Moderate calcified pleural plaques noted bilaterally. Heart: No cardiomegaly. No pericardial effusion. Moderate coronary artery calcifications. Lymph nodes: Unremarkable. No enlarged lymph nodes. Aorta: Negative for aortic dissection. Moderate plaque present. Bones/joints: Chronic fractures with callus noted at the left 8th, 9th, and 10th ribs. There are no acute rib fractures observed. A fracture at T11 is noted; please see CT thoracic spine dictated separately. Soft tissues: Moderate gynecomastia. Negative for chest wall hematoma or soft tissue air. IMPRESSION: 1. Rigid spine fracture at T11. Please see CT thoracic spine dictated separately. 2. No acute intrathoracic injury. 3. Calcified pleural plaques bilaterally. Question asbestos exposure and/or fibrothorax. PROCEDURE INFORMATION: Exam: CT Abdomen And Pelvis With Contrast Exam date and time: 07/07/2021 8:42 PM Age: 81 years old Clinical indication: Abdominal pain; Generalized; Right-sided; Patient HX: S/P fall, right sided abdominal and chest pain. TECHNIQUE: Imaging protocol: Computed tomography of the abdomen and pelvis with contrast. 3D rendering (Not supervised by radiologist): MIP and/or 3D reconstructed images were created by the technologist. Radiation optimization: All CT scans at this facility use at least one of these dose optimization techniques: automated exposure control; mA and/or kV adjustment per patient size (includes targeted exams where dose is matched to clinical indication); or iterative reconstruction. Contrast material: OMNI-PAQUE 350; Contrast volume: 100 ml; Contrast route: INTRAVENOUS (IV);? COMPARISON: 1. CT THORAX ABD/PEL CTA 06/07/2020 3:55 PM 2. CR XR CHEST 2V PA LATERAL 06/21/2021 9:23 AM FINDINGS: Tubes, catheters and devices: Penile implant noted with tubing and reservoir implanted on the left. Lungs: Please see CT chest dictated separately. Liver: Fatty liver. No laceration. No mass. Gallbladder and bile ducts: Nonvisualized gallbladder. No ductal dilatation. Pancreas: Normal pancreas. No laceration. No fluid collection. Spleen: Normal spleen. No laceration or hematoma. Adrenal glands: Bilateral benign adrenal adenoma is unchanged. Kidneys and ureters: Negative for renal laceration or hematoma. Multiple cysts are present, up to 4.5 cm. Nonobstructing stones are present bilaterally, up to 4 mm. Ureters are not dilated. Stomach and bowel: Duodenal diverticulum noted near the ampulla. No inflammatory changes. Unremarkable stomach. Nondilated small bowel. Mild wall thickening and luminal fluid are noted through the jejunum proximal ileum. Terminal ileum is normal. Minimal stool observed in the colon. Fat planes around loops of small bowel are indistinct. There are no inflammatory changes observed around the colon. Appendix: No evidence of appendicitis. Intraperitoneal space: Mild mesenteric fat stranding. No significant free fluid. Negative for free air. Negative for abscess. Arteries: Negative for aneurysm. Moderate-severe vascular calcifications present. Mild aortic stenosis. Sites of iliac and femoral arterial stenosis noted bilaterally. Severe stenosis noted in the superior mesenteric artery. Stenosis also noted in renal arteries bilaterally. Lymph nodes: Mesenteric lymph nodes are mildly prominent. Negative for pathologic lymphadenopathy. Urinary bladder: Bladder is collapsed. Urinary bladder enrique are thick, up to 12 mm. No stones observed. Reproductive: Mildly large prostate. Bones/joints: Postoperative changes noted L4-L5. Please see lumbar spine CT dictated separately. Hardware noted in the proximal left femur. Mild narrowing and osteophyte formation noted in both hips. Heterotopic ossification noted around the left femur. Soft tissues: Unremarkable. IMPRESSION: 1. Negative for acute solid organ injury. 2. Findings of enteritis with reactive mesenteric inflammation. 3. Severe vascular disease. 4. Severe stenosis superior mesenteric artery. 5. Additional sites of stenosis in the renal, iliac, and femoral arteries. 6. Chronic cystitis versus bladder outlet obstruction. Dictated and Authenticated by: Catracho Resendiz MD. Exam: XR Right Finger(s) Exam date and time: 07/07/2021 8:07 PM Age: 81 years old Clinical indication: Injury or trauma; Fall; Blunt trauma (contusions or hematomas); Finger; Right; Thumb TECHNIQUE: Imaging protocol: XR Right fingers. Views: Minimum 2 views. COMPARISON: No relevant prior studies available. FINDINGS: Bones/joints: No evidence of fracture. Negative for dislocation. Negative for bony erosion or destructive change. Bone mineralization appears low. Mild narrowing, sclerosis, and osteophytes are noted in the CMC, MCP, and IP joints. Soft tissues: Negative for soft tissue air. No foreign bodies observed. Soft tissue swelling noted in the thumb. IMPRESSION: No acute osseous abnormality. If symptoms persist, follow-up imaging is advised. Dictated and Authenticated by: Catracho Resendiz MD. Labs Result diagrams: 07/07/21 18:45 07/07/21 18:45 Labs: Laboratory Results - last 24 hr 07/07/21 07/07/21 07/07/21 18:45 18:45 18:45 WBC 12.46 H RBC 4.06 L Hgb 13.3 L Hct 40.0 MCV 98.5 H MCH 32.8 MCHC 33.3 RDW 12.2 Plt Count 190 MPV 11.5 H Immature Gran % 1.0 Neutrophils % 77.8 Lymphocytes % 11.4 Monocytes % 5.8 Eosinophils % 3.3 Basophils % 0.7 Nucleated RBC % 0.0 Absolute Neutrophils 9.69 H Absolute Lymphocytes 1.42 Absolute Monocytes 0.72 Absolute Eosinophils 0.41 Absolute Basophils 0.09 Sodium 140 Potassium 4.4 Chloride 104 Carbon Dioxide 30.5 Anion Gap 5.5 BUN 14 Creatinine 1.3 Estimated GFR/1.73 m2 53.25 Glucose 130 H Calcium 9.2 Phosphorus 2.1 L Magnesium 1.9 Total Bilirubin 0.4 AST 28 ALT 42 Alkaline Phosphatase 108 Troponin I < 50 Total Protein 7.3 Albumin 3.4 TSH 1.97 Urine Color Urine Clarity Urine pH Ur Specific Blackwell Urine Protein Urine Ketones Urine Blood Urine Nitrite Urine Bilirubin Urine Urobilinogen Ur Leukocyte Esterase Urine RBC Urine WBC Ur Epithelial Cells Urine Crystals Urine Bacteria Urine Casts Urine Mucus Ur Culture Indicated? Urine Glucose Ethyl Alcohol < 3.0 07/07/21 07/07/21 21:18 22:05 WBC RBC Hgb Hct MCV MCH MCHC RDW Plt Count MPV Immature Gran % Neutrophils % Lymphocytes % Monocytes % Eosinophils % Basophils % Nucleated RBC % Absolute Neutrophils Absolute Lymphocytes Absolute Monocytes Absolute Eosinophils Absolute Basophils Sodium Potassium Chloride Carbon Dioxide Anion Gap BUN Creatinine Estimated GFR/1.73 m2 Glucose Calcium Phosphorus Magnesium Total Bilirubin AST ALT Alkaline Phosphatase Troponin I < 50 Total Protein Albumin TSH Urine Color Yellow Urine Clarity Clear Urine pH 6.0 Ur Specific Blackwell 1.010 Urine Protein 30 H Urine Ketones Negative Urine Blood Negative Urine Nitrite Negative Urine Bilirubin Negative Urine Urobilinogen 0.2 Ur Leukocyte Esterase Negative Urine RBC Negative Urine WBC Negative Ur Epithelial Cells Negative Urine Crystals Mod Calcium Oxalate Urine Bacteria Negative Urine Casts 0-2 Hyaline Urine Mucus Moderate Ur Culture Indicated? No Urine Glucose Negative Ethyl Alcohol Last Vital Signs Temp 36.6 C 07/07/21 18:20 Pulse 83 07/07/21 23:01 Resp 13 07/07/21 23:10 BP 132/70 07/07/21 23:01 Pulse Ox 93 07/07/21 23:10
[2021-07-08] VITALS (24 sets, daily range): BP systolic 103–132; BP diastolic 59–98; PULSE 55–88; RESP 13–22; TEMP 36.2–36.7; O2SAT 90–93
[2021-07-08 01:08] LABS: Troponin I < 50 ng/L (<or=60)
[2021-07-08] MEDS: Acetaminophen 325 MG TAB 650 MG PO (01:59)
[2021-07-08] MEDS: oxyCODONE 5 MG TAB PO ×2 (02:05→08:19)
[2021-07-08 02:31] LABS: Source Nasal/Nares
[2021-07-08 03:13] LABS: COVID-19 PCR Negative (Negative)
[2021-07-08 06:44] LABS: Abs Immature Grans 0.04 10^3/uL (0.0-0.06); Absolute Basophil Count 0.08 10^3/uL (0.0-0.2); Absolute Lymphocyte Count 1.99 10^3/uL (1.2-3.4); Absolute Neutrophil Count 8.49 10^3/uL (1.2-6.7); Basophils % 0.7; Eosinophils % 2.8; HCT 38.7 % (40.0-50.0); HGB 12.6 g/dL (13.5-17.5); Immature Grans % 0.3; Lymphocytes % 16.7; MCH 33.2 pg (27.0-33.0); MCHC 32.6 % (32.0-36.0); MCV 102.1 fL (80-95); MPV 11.5 fL (8.0-11.0); Monocytes % 8.4; Neutrophils % 71.1; Platelet Count 160 10^3/uL (130-400); RBC 3.79 10^6/uL (4.36-5.78); RDW 12.3 % (11.8-14.1); RDW-SD 46.4 fL; WBC 11.94 10^3/uL (4.4-10.8)
[2021-07-08 07:00] LABS: Absolute Eosinophil Count 0.33 10^3/uL (0.0-0.7)
[2021-07-08 07:02] LABS: ALT 34 U/L (16-63); AST 26 U/L (15-37); Albumin 3.1 g/dL (3.4-5.0); Alkaline Phosphatase 108 U/L (46-116); Anion Gap 8.1 mmol/L (3-11); BUN 17 mg/dL (7-18); Bilirubin, Total 0.6 mg/dL (0.2-1.0); CO2 25.9 mmol/L (21.0-32.0); CREATININE 1.2 mg/dL (0.70-1.30); Chloride 106 mmol/L (98-107); Glucose 117 mg/dL (74-106); Potassium 4.8 mmol/L (3.5-5.1); Sodium 140 mmol/L (136-145); Total Protein 6.9 g/dL (6.4-8.2)
[2021-07-08] MEDS: Potassium Chloride 20 MEQ TABCR PO (08:20)
[2021-07-08] MEDS: Aspirin 81 MG CHEW PO (08:20)
[2021-07-08] MEDS: Magnesium Gluconate 500 MG TAB PO ×2 (08:21→21:06)
[2021-07-08] MEDS: amLODIPine 10 MG TAB PO (08:21)
[2021-07-08] MEDS: Omeprazole 20 MG CAPCR 40 MG PO (08:21)
[2021-07-08] MEDS: Cyanocobalamin 500 MCG TAB 1000 MCG PO (08:21)
[2021-07-08] MEDS: Loratidine 10 MG TAB PO (08:21)
[2021-07-08] MEDS: Folic Acid 1 MG TAB PO (08:21)
[2021-07-08] MEDS: Multivitamin TAB 1 TAB PO (08:21)
[2021-07-08] MEDS: Normal Saline Flush 10 ML SYR IVP ×2 (10:25→15:55)
[2021-07-08] MEDS: MORPHine 4 MG/ML SYR IVP ×2 (10:26→15:54)
--- NOTE | 2021-07-08 10:44 | PGE_ITS ---
Date of Service Date of service: 07/08/21 Time of Service: 10:46 Assessment and Plan Assessment and plan (1) Thoracic vertebral fracture: Status: Acute Assessment and plan: syncopal episode resulting in closed fracture of the T11 vertebral body which needs further investigation prior to treatment plan. MRI of the spine for further delineation of the fracture which appears to go through the body and to assess for stability planned for Friday morning. [facility] otherwise he will be at bedrest with pain management until MRI can be obtained 07/09/2021. He has no focal neurological deficit and does not appear to be neurologically compromised at this time. There were no recommendation for body brace at this time. PT and OT will evaluate patient as allowed. Patient does have history of alcoholism in the past but states he has not drunk for more than a year. He does have old left rib fractures which are nontender. There is no explanation for his syncopal episode which should be further evaluated. (2) Syncope: Status: Acute Assessment and plan: Cardiac monitoring and trending troponins which have been negative. Patient does have a history of alcohol abuse but has not been drinking recently. If no cardiac event consider further neurological evaluation though the patient did not seem to have seizures at the time of his syncopal episode. It was sudden onset without warning. Further history may be helpful as patient remembers his events prior to syncope There is no amnesia reported. (3) Laceration of right thumb: Status: Acute Assessment and plan: Wound care with patient having sutures. These will need to be removed within 7 to 10 days. Continue bandage for now. (4) COPD (chronic obstructive pulmonary disease): Status: Chronic Assessment and plan: Continue oxygen as needed with respiratory treatments. (5) Fracture of rib of left side: Status: Chronic Assessment and plan: Patient has evidence of other recent fall with old left healing rib fractures and no discomfort over that area. He may have been drinking alcohol more recently than reported. (6) Abdominal bloating: Status: Chronic Assessment and plan: Patient does have a prominent abdomen which is soft but uncomfortable with deep palpation. CT does not reveal possible enteritis with mesenteric reaction and patient stated he is scheduled to have endoscopy to further evaluate the [facility]. He has been eating and drinking without increased bloating though at times he has dark stools. He is not anemic. This is not a problem with which he presented is chronic and ongoing. Monitor while in the hospital. He does also have evidence of renal lithiasis. He does not have any symptoms of renal colic. Observe during the hospital stay. (7) DVT prophylaxis: Status: Acute Assessment and plan: recommendation against pharmacologic teds and scds only (8) Discharge planning issues: Status: Acute Assessment and plan: pending MRI results. discussed with DR Izaguirre. Subjective Subjective Patient reports: no new complaints, pain is less and afebrile Interval history since last seen: no appetite. Exam Const General: cooperative, comfortable and frail appearing Nutritional Appearance: overweight Orientation: alert, awake and oriented x3 HENMT Head: normal to inspection, normocephalic and atraumatic Mouth: moist mucous membranes abnormal (dry) Chest Chest: normal inspection of the chest Resp Effort & Inspection: normal respiratory effort Auscultation: clear to auscultation bilaterally Cardio Rate: regular rate Rhythm: regular rhythm GI Inspection: distended Palpation: soft, not rigid and nontender Percussion: tympanic to percussion Auscultation: hypoactive bowel sounds Skin Rashes: no rashes Trauma: laceration (right thumb, dressing intact) Neuro General: patient alert, patient awake, patient oriented x3 and no focal motor deficits Cognition: normal cognition Speech: speech normal Gait: normal gait Extrem General: normal to inspection, full ROM and no pedal edema Objective Last Vital Signs Temp 36.2 C L 07/08/21 10:30 Pulse 82 07/08/21 10:30 Resp 18 07/08/21 10:30 BP 127/69 07/08/21 10:30 Pulse Ox 92 07/08/21 10:30 Laboratory Results - last 24 hr 07/07/21 07/07/21 07/07/21 00:47 18:45 18:45 WBC 12.46 H RBC 4.06 L Hgb 13.3 L Hct 40.0 MCV 98.5 H MCH 32.8 MCHC 33.3 RDW 12.2 Plt Count 190 MPV 11.5 H Immature Gran % 1.0 Neutrophils % 77.8 Lymphocytes % 11.4 Monocytes % 5.8 Eosinophils % 3.3 Basophils % 0.7 Nucleated RBC % 0.0 Absolute Neutrophils 9.69 H Absolute Lymphocytes 1.42 Absolute Monocytes 0.72 Absolute Eosinophils 0.41 Absolute Basophils 0.09 Sodium 140 Potassium 4.4 Chloride 104 Carbon Dioxide 30.5 Anion Gap 5.5 BUN 14 Creatinine 1.3 Estimated GFR/1.73 m2 53.25 Glucose 130 H Calcium 9.2 Phosphorus 2.1 L Magnesium 1.9 Total Bilirubin 0.4 AST 28 ALT 42 Alkaline Phosphatase 108 Troponin I < 50 < 50 Total Protein 7.3 Albumin 3.4 TSH 1.97 Urine Color Urine Clarity Urine pH Ur Specific [place] Urine Protein Urine Ketones Urine Blood Urine Nitrite Urine Bilirubin Urine Urobilinogen Ur Leukocyte Esterase Urine RBC Urine WBC Ur Epithelial Cells Urine Crystals Urine Bacteria Urine Casts Urine Mucus Ur Culture Indicated? Urine Glucose Ethyl Alcohol COVID-19 Source SARS-CoV-2 (PCR) 07/07/21 07/07/21 07/07/21 18:45 21:18 22:05 WBC RBC Hgb Hct MCV MCH MCHC RDW Plt Count MPV Immature Gran % Neutrophils % Lymphocytes % Monocytes % Eosinophils % Basophils % Nucleated RBC % Absolute Neutrophils Absolute Lymphocytes Absolute Monocytes Absolute Eosinophils Absolute Basophils Sodium Potassium Chloride Carbon Dioxide Anion Gap BUN Creatinine Estimated GFR/1.73 m2 Glucose Calcium Phosphorus Magnesium Total Bilirubin AST ALT Alkaline Phosphatase Troponin I < 50 Total Protein Albumin TSH Urine Color Yellow Urine Clarity Clear Urine pH 6.0 Ur Specific [place] 1.010 Urine Protein 30 H Urine Ketones Negative Urine Blood Negative Urine Nitrite Negative Urine Bilirubin Negative Urine Urobilinogen 0.2 Ur Leukocyte Esterase Negative Urine RBC Negative Urine WBC Negative Ur Epithelial Cells Negative Urine Crystals Mod Calcium Oxalate Urine Bacteria Negative Urine Casts 0-2 Hyaline Urine Mucus Moderate Ur Culture Indicated? No Urine Glucose Negative Ethyl Alcohol < 3.0 COVID-19 Source SARS-CoV-2 (PCR) 07/08/21 07/08/21 07/08/21 02:20 06:10 06:10 WBC 11.94 H RBC 3.79 L Hgb 12.6 L Hct 38.7 L MCV 102.1 H D MCH 33.2 H MCHC 32.6 RDW 12.3 Plt Count 160 MPV 11.5 H Immature Gran % 0.3 Neutrophils % 71.1 Lymphocytes % 16.7 Monocytes % 8.4 Eosinophils % 2.8 Basophils % 0.7 Nucleated RBC % 0.0 Absolute Neutrophils 8.49 H Absolute Lymphocytes 1.99 Absolute Monocytes 1.00 H Absolute Eosinophils 0.33 Absolute Basophils 0.08 Sodium 140 Potassium 4.8 Chloride 106 Carbon Dioxide 25.9 Anion Gap 8.1 BUN 17 Creatinine 1.2 Estimated GFR/1.73 m2 58.40 Glucose 117 H Calcium 9.0 Phosphorus Magnesium Total Bilirubin 0.6 AST 26 ALT 34 Alkaline Phosphatase 108 Troponin I Total Protein 6.9 Albumin 3.1 L TSH Urine Color Urine Clarity Urine pH Ur Specific [place] Urine Protein Urine Ketones Urine Blood Urine Nitrite Urine Bilirubin Urine Urobilinogen Ur Leukocyte Esterase Urine RBC Urine WBC Ur Epithelial Cells Urine Crystals Urine Bacteria Urine Casts Urine Mucus Ur Culture Indicated? Urine Glucose Ethyl Alcohol COVID-19 Source Nasal/Nares SARS-CoV-2 (PCR) Negative
--- NOTE | 2021-07-08 12:54 | PDOC.CMIN ---
- If Service Date Differs Date of service: 07/08/21 Time of Service: 12:54 Care Management Initial Assess REASON FOR HOSPITALIZATION:: Syncope, T11 Vertebral Body Fx, Right Ribs Fx PAST MEDICAL HISTORY/PAST SURGICAL HISTORY:: Patient has a T11 fracture with rigid spine vertebral body and fracture p.o. his eighth ninth and 10th rib. [facility] recommended MRI given reduced spine, patient is unable to have MRI this evening recommend bed rest without heparinization for 48 hours. Patient is neurologically intact at time of my assessment. He is alert and oriented. He tolerated the suture placement without incident. I did have to transfer patient to [facility] for MRI, however they are unable to accept this patient. I also attempted to call the [facility] who we are unable to successfully contact to transfer the patient. Patient also was unable to be accepted at [facility] secondary to capacity. Therefore patient will stay in the hospital at this time as he is neurologically intact, await MRI on Friday. Medical History . Alcohol abuse. GERD (gastroesophageal reflux disease). HTN (hypertension). Hx of hyperlipidemia. Surgical History . Fracture of right hip. pinning. Hx of cholecystectomy PREVIOUS FUNCTIONAL STATUS/SOCIAL/FAMILY SUPPORTS:: Tyler resides alone in the [facility] apartments in [place]. He has no family in the area but does have close friends. Tyler worked for over 50 years in the [employer] and did everything. He stated that he enjoyed it. He is still close friends with one of the women he worked with. Tyler uses a 4ww in his apartment anmd has an electric wheelchair for when he goes out. He is independent with ADLs. He [facility] and [facility] the [facility]. CURRENT FUNCTIONAL STATUS:: Tyler verbalized that he was surprised that he did not get [facility] to the [facility] but understands he may go tomorrow if a bed is available. He had a baseball game on TV and when asked who he favored in sports, he answered all teams [place]. Has patient been provided with info about the portal/API?: No Did the patient sign up for the portal?: No CODE STATUS:: DNR/DNI INSURANCE COVERAGE / FINANCIAL ISSUES:: Medicare. [facility] CURRENT HOME/COMMUNITY SERVICES/EQUIPMENT:: MOW, 4 WW, electric wheelchair, home health? PRIMARY CARE PHYSICIAN:: Brad Morrow POTENTIAL DISCHARGE NEEDS:: MRI Friday, anticipate [facility] transfer dependent on bed availability. PATIENT/FAMILY EDUCATION NEEDS:: Review discharge instructions, discuss Ask Me Three. ANTICIPATED BARRIERS TO DISCHARGE:: Availability for MRI, [facility] TRANSPORTATION:: Transfer via EMS. PLAN:: Transfer continues to be sought, if Tyler remains at [facility] he will have an MRI tomorrow. Tyler would like to transfer to the [facility]-transfer information provided to DIGITAL MARKETING APPRENTICE who is awaiting return call from [facility]. Per ED note-VA transfer was attempted from ED as well with no noted response from VA. CM continues to follow.
[2021-07-08] MEDS: Normal Saline 1,000 ML 100 ML IV (18:12)
[2021-07-08] MEDS: Lisinopril 10 MG TAB PO (21:05)
[2021-07-08] MEDS: traZODone 100 MG TAB 200 MG PO (21:05)
[2021-07-08] MEDS: Tamsulosin 0.4 MG CAPCR PO (21:06)
[2021-07-08] MEDS: Docusate Sodium 100 MG CAP PO (21:06)
[2021-07-08] MEDS: Atorvastatin 10 MG TAB PO (21:06)
[2021-07-09] VITALS (11 sets, daily range): BP systolic 87–130; BP diastolic 35–73; PULSE 41–128; RESP 15–22; TEMP 36.6–37.8; O2SAT 88–95
[2021-07-09] MEDS: MORPHine 4 MG/ML SYR IVP ×5 (00:34→23:18)
[2021-07-09] MEDS: oxyCODONE 5 MG TAB PO ×4 (01:41→19:18)
[2021-07-09] MEDS: amLODIPine 10 MG TAB PO (07:26)
[2021-07-09] MEDS: Multivitamin TAB 1 TAB PO (07:26)
[2021-07-09] MEDS: Docusate Sodium 100 MG CAP PO ×2 (07:26→19:18)
[2021-07-09] MEDS: Cyanocobalamin 500 MCG TAB 1000 MCG PO (07:26)
[2021-07-09] MEDS: Magnesium Gluconate 500 MG TAB PO ×2 (07:26→19:18)
[2021-07-09] MEDS: Loratidine 10 MG TAB PO (07:26)
[2021-07-09] MEDS: Folic Acid 1 MG TAB PO (07:26)
[2021-07-09] MEDS: Aspirin 81 MG CHEW PO (07:26)
[2021-07-09] MEDS: Omeprazole 20 MG CAPCR 40 MG PO (07:26)
[2021-07-09] MEDS: Normal Saline Flush 10 ML SYR IVP ×4 (07:27→23:18)
--- NOTE | 2021-07-09 15:08 | CMPROGNOTE_ITS ---
- If Service Date Differs Date of service: 07/09/21 Time of Service: 15:08 Care Management Progress Note S/O: Tyler was sleeping each time CM tried to meet with him today. Per the [facility], they have no available beds for an Acute transfer and recommend the provider connect with [facility] and [facility], CM notified provider. A: 81 year old male admitted to [facility] on 07/07/21 for Syncope, T11 Vertebral Fx, Right rib fx. P: Transfer continues to be sought, if Tyler remains at [facility] he will have an MRI tomorrow. Tyler would like to [facility] to the [facility]-transfer information provided to WEALTH MANAGEMENT CONSULTANT who is awaiting return call from [place]. Per ED note-VA transfer was attempted from ED as well with no noted response from VA. CM continues to follow.
--- NOTE | 2021-07-09 15:08 | PDOC.CMPRO ---
- If Service Date Differs Date of service: 07/09/21 Time of Service: 15:08 Care Management Progress Note S/O: Tyler was sleeping each time CM tried to meet with him today. Per the [place] [facility], they have no available beds for an Acute transfer and recommend the provider connect with [facility] and [facility], CM notified provider. A: 81 year old male admitted to [facility] on 07/07/21 for Syncope, T11 Vertebral Fx, Right rib fx. P: Transfer continues to be sought, if Tyler remains at [facility] he will have an MRI tomorrow. Tyler would like to [facility] to the [facility]-transfer information provided to OFFSET LITHOGRAPHIC PRESS OPERATOR who is awaiting return call from [place]. Per ED note-VA transfer was attempted from ED as well with no noted response from VA. CM continues to follow.
--- NOTE | 2021-07-09 16:45 | PT.INIE ---
Date of service: 07/09/21 Time of Service: 16:45 PT Notes Visit Reasons: Syncope, T11 Vertebral Body Fx, Right Ribs Fx Inpatient Physical Therapy Evaluation Date: 07/09/2021 Referring Doctor:? Mikayla Weston NP PT Orders: PT CONSULT: Eval/Treat Precautions: Back precautions on. Fall. Patient Profile/Admitting Diagnosis:? Tyler is a 81-year-old gentleman with history of pancytopenia, hyponatremia, hypomagnesemia, COPD, community-acquired pneumonia, who presented at the ED on 07/07/2021 due to a fall resulting from a sycopal episode. ? Patient is diagnosed with upper T11 vertebral body fracture, syncope, of right thumb, COPD exacerbation, fracture of left ribs, and abdominal bloating. 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 Alcohol abuse GERD (gastroesophageal reflux disease) HTN (hypertension) Hx of hyperlipidemia Surgical History? Fracture of right hip pinningHx of cholecystectomy Social History/Home Situation: Lives alone on the second floor of an apartment building in [place] [facility] with an elevator and an elevator to enter. Patient is modified independent using his 4 wheeled walker indoors and uses his motorized wheelchair for outdoor ambulation. He has a lady who comes in once or twice a week to perform house chores and laundry. Equipment Owned/DME: Motorized wheelchair, 4WW Subjective:?Tyler is agreeable to PT consult. Reported severe dizziness that limited ambulation this afternoon. Reports 8/10 pain with weight bearing and 7/10 at rest. Objective:? General Observation: Kingsley catheter in place. Telemetry monitoring in place. Bruising in right upper extremity and L side of trunk. Oxygen supplementation at 2 L/min via NC. Mental Status: Alert and oriented x3 Pain: 7/10 pain and mid back at rest 8/10 with weight bearing Vital Signs: Orthostatic and standing with systolic BP in the high 80s and diastolic BP in the high 60s (please see vital sign measurement by Nurse Nielsen) ROM: Right Upper Extremity: Shoulder Flexion WFL. Shoulder abduction WFL. Elbow flexion WFL. Wrist flexion WFL. Functional opening and closing of hand WFL. Left Upper Extremity: Shoulder Flexion WFL. Shoulder abduction WFL. Elbow flexion WFL. Wrist flexion WFL. Functional opening and closing of hand WFL. Pain at end range of L shoulder ROM. Right Lower Extremity: Hip flexion WFL. Hip abduction WFL. Knee flexion WFL. Ankle dorsiflexion WFL. Ankle plantarflexion WFL. Left Lower Extremity: Hip flexion WFL. Hip abduction WFL. Knee flexion WFL. Ankle dorsiflexion WFL. Ankle plantarflexion WFL. Strength: Right Upper Extremity: Shoulder flexors 4-/5. Shoulder abductors 4-/5. Elbow flexors 4-/5. Elbow extensors 4-/5. Automatic Screwmaker strong. Left Upper Extremity: Shoulder flexors 4-/5. Shoulder abductors 4-/5. Elbow flexors 4-/5. Elbow extensors 4-/5. Automatic Screwmaker strong. Right Lower Extremity: Hip flexors 4-/5. Hip abductors 4-/5. Knee flexors 4-/5. Knee extensors 4-/5. Ankle dorsiflexors 4-/5. Ankle plantarflexors 4-/5. Left Lower Extremity: Hip flexors 4-/5. Hip abductors 4-/5. Knee flexors 4-/5. Knee extensors 4-/5. Ankle dorsiflexors 4-/5. Ankle plantarflexors 4-/5. Sensation:?Diminished sensation bilateral lower extremities secondary to peripheral neuropathy. No pain radiation to lower extremities. Bed Mobility/Transfers: (Nurse Daniels and Nurse Nielsen assisting with mobilizing patient for safety due to increased dizziness and BP softening) Rolling complain of pain in the side of chest with rolling Supine to sit moderate assist of 2 with HOB at 60 degrees. Expectorated x2 while seated at edge of bed Sit to stand minimal assist of 2 Stand to sit standby assist Bed to chair able due to dizziness Chair to bed unable due to dizziness Gait:? Only tolerated 3 sidesteps using front wheeled walker with full weightbearing requiring minimal assistance to with report of severe dizziness and instability. 8/10 pain in the mid back. Balance:? Static Sitting: Normal Dynamic Sitting: Good Static Standing: Fair Dynamic Standing: Poor Special Tests: Mobility Limitations Standardized Measure [facility] AM-PAC 6 clicks Basic Mobility Inpatient Short Form: Raw Score: 11? Standardized Score: 73% deficit? Informed Consent/Education:? Patient instructed in purpose of PT consult and plan of care. Assessment:?? Per Dr. Cartagena, may mobilize without back brace as he is able to tolerate. Mobility limited by pain complaint and severe dizziness, generalized weakness, and orthostatic hypotension. Tyler is a 81-year-old gentleman with history of pancytopenia, hyponatremia, hypomagnesemia, COPD, community-acquired pneumonia, who presented at the ED on 07/07/2021 due to a fall resulting from a sycopal episode. ? Patient is diagnosed with upper T11 vertebral body fracture, syncope, of right thumb, COPD exacerbation, fracture of left ribs, and abdominal bloating. Premedicate for pain for PT sessions. Patient presents with clinical signs and symptoms consistent with current/admitting diagnoses that have resulted to mobility limitations, gait instability, generalized weakness, and overall ADL decline as demonstrated by the following impairment level findings: 1. Decreased strength to B LE major muscle groups 2. Impaired sitting/standing balance 3. Impaired activity tolerance 4. Pain at rest and with movement 5. Shortness of breath 6. Swelling 7. Dizziness Impairments are contributing to the following functional limitations: 1. Decline in bed mobility skills 2. Decline in transfer skills 3. Difficulty with ambulation without assistive device and physical assistance 4. Increased completion time for mobility ADL performance 5. Increased risk for falls 6. Difficulty with managing steps alone safely Patient is assessed as a 56711 moderate complexity based on the following: History: 81-year-old male with past medical history as indicated above Examination: Demonstrable impairment in strength, balance, and mobility level with underlying impairments and functional limitations as exhibited above as well as deficit score of 73% utilizing the [facility] Mobility Inpatient Short Form Presentation: Evolving Decision Makin moderate complexity Goals: Goals X1 week 1. Supine-Sit independent 2. Sit-Supine independent 3. Sit-Stand independent 4. Stand-Sit independent 5. Bed-Chair supervision with 4WW 6. Chair-Bed supervision with 4WW 7. Gait supervision with 4WW Plan of Care/Treatment Plan: 1-2x/day, 7 days/week x 1 week. Plan of care has been reviewed with the NEWSPAPER SUBSCRIPTION SOLICITOR providing the service under Physical Therapy direction. Initiate Physical Therapy intervention for strengthening, bed mobility, transfers, gait, stairs, balance training, use of assistive device. DISCHARGE RECOMMENDATIONS: [] Home with no services [] [] Home with services [specify] [] Home with outpatient PT [] [X] SNF for continued rehabilitation. Patient will benefit from home health PT services in order to progress mobility level using least restrictive assistive ambulatory device, assess home safety, identify additional equipment needs, and establish a functional maintenance program that will increase ability of patient to remain at home. [] Fiction And Nonfiction Prose Writer Care [] [] SNF versus LTC based on ability to participate and progress [] TREATMENT CODE/TIME: 66456 x 25 minutes, 973 0 x 25 minutes beginning at 16:45 PM. Thank you for the opportunity to participate in the care of this patient. Cat Salmeron PT, DPT, CLT [facility] [place], [place]
--- NOTE | 2021-07-09 17:28 | W.PM.PROGNOT ---
Date of Service Date of service: 07/09/21 Time of Service: 17:28 Assessment and Plan Assessment and plan (1) Thoracic vertebral fracture: Status: Acute Assessment and plan: syncopal episode resulting in closed fracture of the T11 vertebral body which needs further investigation prior to treatment plan. unable to get MRI of the spine for further delineation of the fracture which appears to go through the body and to assess for stability d/t unknown details of penile implant. trying to get records from the [facility] but this is 40 year ols. He is open to going to the [facility] but no beds available. He has no focal neurological deficit and does not appear to be neurologically compromised at this time. His case is reviewed with DR Cartagena who recommends PT and OT will evaluate patient, brace fitting. continue pain management. (2) Syncope: Status: Acute Assessment and plan: Cardiac monitoring and trending troponins which have been negative. Also consider further neurological evaluation though the patient did not seem to have seizures at the time of his syncopal episode. It was sudden onset without warning. Further history may be helpful as patient remembers his events prior to syncope There is no amnesia reported. (3) Laceration of right thumb: Status: Acute Assessment and plan: Wound care with patient having sutures. These will need to be removed within 7 to 10 days. Continue bandage for now. (4) COPD (chronic obstructive pulmonary disease): Status: Chronic Assessment and plan: Continue oxygen as needed with respiratory treatments. (5) Fracture of rib of left side: Status: Chronic Assessment and plan: Patient has evidence of other recent fall with old left healing rib fractures and no discomfort over that area. (6) Abdominal bloating: Status: Chronic Assessment and plan: Patient does have a prominent abdomen which is soft but uncomfortable with deep palpation. CT does not reveal possible enteritis with mesenteric reaction and patient stated he is scheduled to have endoscopy [facility]. He has been eating and drinking without increased bloating though at times he has dark stools. He is not anemic. This is not a problem with which he presented is chronic and ongoing. Monitor while in the hospital. He does also have evidence of renal lithiasis. He does not have any symptoms of renal colic. (7) DVT prophylaxis: Status: Acute Assessment and plan: recommendation against pharmacologic teds and scds only (8) Discharge planning issues: Status: Acute Assessment and plan: pending MRI if implant information obtained. discussed with DR Izaguirre. Subjective Subjective Patient reports: still having pain, tolerating liquids well, voiding w/o difficulty (muse to gravity drainage) and afebrile Interval history since last seen: no appetite. Exam Const General: cooperative, no acute distress and frail appearing Nutritional Appearance: overweight Orientation: alert, awake and oriented x3 HENMT Head: normal to inspection, normocephalic and atraumatic Mouth: moist mucous membranes abnormal (dry) Chest Chest: normal inspection of the chest Resp Effort & Inspection: normal respiratory effort Auscultation: clear to auscultation bilaterally Cardio Rate: regular rate Rhythm: regular rhythm GI Inspection: distended Palpation: soft, not rigid and nontender Percussion: tympanic to percussion Auscultation: hypoactive bowel sounds Skin Rashes: no rashes Trauma: laceration (right thumb, dressing intact) Neuro General: patient alert, patient awake, patient oriented x3 and no focal motor deficits Cognition: normal cognition Speech: speech normal Gait: normal gait Extrem General: normal to inspection, full ROM and no pedal edema Objective Last Vital Signs Temp 37.2 C 07/09/21 11:30 Pulse 72 07/09/21 15:00 Resp 22 07/09/21 11:30 BP 109/62 07/09/21 11:30 Pulse Ox 94 07/09/21 11:30
[2021-07-09] MEDS: Atorvastatin 10 MG TAB PO (19:18)
--- NOTE | 2021-07-09 19:51 | NUR.NOTE ---
Nursing Note: BP 98/50 manually. Lisinopril held. Charge nurse made aware. notified
[2021-07-09] MEDS: Tamsulosin 0.4 MG CAPCR PO (21:49)
[2021-07-09] MEDS: traZODone 100 MG TAB 200 MG PO (21:49)
[2021-07-10] VITALS (18 sets, daily range): BP systolic 97–136; BP diastolic 52–68; PULSE 64–91; RESP 2–20; TEMP 36.6–38; O2SAT 88–96
--- NOTE | 2021-07-10 | DI.RAD_ITS ---
Exam(s) XR PORTABLE CHEST AP EXAM: XR PORTABLE CHEST AP CLINICAL HISTORY: hypoxia. TECHNIQUE: 2D digital imaging was performed. COMPARISON: CR XR CHEST 2V PA LATERAL from 06/21/[address] CHEST/ABD/PEL W from 07/07/2021 FINDINGS: Single AP portable view. Heart size is upper normal. The mediastinum is not widened. Again noted are extensive bilateral pleural plaques. Allowing for the patient being rotated on today 's study there is minimal change when compared to 06/21/2021. No pleural effusions. No pulmonary edema. IMPRESSION: Extensive bilateral calcified pleural plaques. One of these on the right appears to have increased b ut this is most probably just related to the patient being rotated somewhat on today's study. If clinically indicated follow-up CT scan can be performed DATA REPOSITORY: RADIATION DOSE DELIVERED: All CT scans at this facility use at least one of these dose optimization techniques: automated exposure control; mA and/or kV adjustment per patient size (includes targeted e xams where dose is matched to clinical indication); or iterative reconstruction.
[2021-07-10] MEDS: MORPHine 4 MG/ML SYR IVP (03:22)
[2021-07-10] MEDS: Normal Saline Flush 10 ML SYR IVP ×2 (03:22→12:17)
[2021-07-10] MEDS: Magnesium Gluconate 500 MG TAB PO ×2 (09:20→20:10)
[2021-07-10] MEDS: Docusate Sodium 100 MG CAP PO ×2 (09:20→20:10)
[2021-07-10] MEDS: Aspirin 81 MG CHEW PO (09:20)
[2021-07-10] MEDS: Multivitamin TAB 1 TAB PO (09:20)
[2021-07-10] MEDS: Folic Acid 1 MG TAB PO (09:21)
[2021-07-10] MEDS: Omeprazole 20 MG CAPCR 40 MG PO (09:21)
[2021-07-10] MEDS: Acetaminophen 500 MG TAB 1000 MG PO (09:22)
[2021-07-10] MEDS: Cyanocobalamin 500 MCG TAB 1000 MCG PO (09:24)
[2021-07-10] MEDS: Loratidine 10 MG TAB PO (09:24)
[2021-07-10] MEDS: amLODIPine 10 MG TAB PO (09:24)
[2021-07-10] MEDS: oxyCODONE 5 MG TAB PO ×3 (09:24→22:40)
[2021-07-10] MEDS: Normal Saline 250 ML 500 ML IV (09:35)
[2021-07-10] MEDS: Normal Saline 1,000 ML 100 ML IV ×2 (10:41→22:17)
[2021-07-10] MEDS: Albuterol/Ipratropium 3 ML UPD VIAL UPD ×3 (11:32→20:11)
[2021-07-10 11:40] LABS: Abs Immature Grans 0.03 10^3/uL (0.0-0.06); Absolute Basophil Count 0.05 10^3/uL (0.0-0.2); Absolute Eosinophil Count 0.32 10^3/uL (0.0-0.7); Absolute Lymphocyte Count 1.45 10^3/uL (1.2-3.4); Absolute Monocyte Count 0.79 10^3/uL (0.1-0.8); Absolute Neutrophil Count 5.71 10^3/uL (1.2-6.7); Basophils % 0.6; Eosinophils % 3.8; HCT 34.5 % (40.0-50.0); HGB 11.3 g/dL (13.5-17.5); Immature Grans % 0.4; Lymphocytes % 17.4; MCH 33.3 pg (27.0-33.0); MCHC 32.8 % (32.0-36.0); MCV 102 fL (80-95); MPV 11.5 fL (8.0-11.0); Monocytes % 9.5; Neutrophils % 68.3; Platelet Count 143 10^3/uL (130-400); RBC 3.39 10^6/uL (4.36-5.78); RDW 12.3 % (11.8-14.1); RDW-SD 46.5 fL; WBC 8.35 10^3/uL (4.4-10.8)
--- NOTE | 2021-07-10 11:44 | PGE_ITS ---
Date of Service Date of service: 07/10/21 Time of Service: 11:00 Assessment and Plan Assessment and plan (1) Thoracic vertebral fracture: Status: Acute Assessment and plan: Syncopal episode resulting in closed fracture of the T11 vertebral body, stable. [facility]. Remains free of focal neurological deficits and neurological compromise. case is discussed with Dr Cartagena who is in agreement with PT and OT evaluation and re-ambulation as able. (we were unable to get MRI d/t unknown composition of penile implant from 40 years ago, will cancel if re-ambulated and no deficits. TLSO or [place] brace recommendations if able to obtain continue pain management. will need outpatient spine follow up (2) Syncope: Status: Acute Assessment and plan: Troponins are all negative. 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 blood pressure meds on hold, IV fluids given. Telemetry in progress SR 70's to 90's with scattered PVC's and PAC's (3) Pain: Status: Acute Assessment and plan: Regular use of narcotic pain meds overnight ( IV morphine and oral oxycodone) Lidocaine patch, Ketorolac IV for 24 hours added. (4) Laceration of right thumb: Status: Acute Assessment and plan: Wound care with patient having sutures. These will need to be removed within 7 to 10 days. Continue bandage for now. (5) Hypertension: Status: Chronic Assessment and plan: SBP 87/35 standing on 07/09; 97/57 supine this AM Lisinopril and Amlodipine held today; will reevaluate tomorrow. Will continue holding furosemide 500 CC NS bolus given then IVF to 100 ml/ hr for 1 liter. (6) GERD (gastroesophageal reflux disease): Assessment and plan: Omeprazole home dose ordered (7) COPD (chronic obstructive pulmonary disease): Status: Chronic Assessment and plan: Increased oxygen requirements today. OOB, IS, chest XR ordered Continue home dose of PRN Abuterol Duoneb QID scheduled initiated today (8) Hx of hyperlipidemia: Assessment and plan: Home regimen in progress (9) Fracture of rib of left side: Status: Chronic Assessment and plan: Patient has evidence of other recent fall with old left healing rib fractures and no discomfort over that area. (10) Abdominal bloating: Status: Chronic Assessment and plan: Abdomen remains prominent and soft, no tenderness to palpation. CT did not reveal possible enteritis with mesenteric reaction and patient stated he is scheduled to have endoscopy to [facility]. Did not eat breakfast; did not drink supplementation. H&H:11.3/34.5; will continue to monitor. Bowel management regimen in place (11) DVT prophylaxis: Status: Acute Assessment and plan: recommendation against pharmacologic management teds and scds only (12) Discharge planning issues: Status: Acute Assessment and plan: Discharge plan:anticipate rehab referrals. . I have independently evaluated patient and am in agreement with documentation, assessment and plan. discussed with DR Izaguirre. Subjective Subjective Patient reports: feels better, pain is less, tolerating liquids well, voiding w/o difficulty (kingsley to gravity drainage) and other (T max = 100.4); denies tolerating a regular diet (decreased appetite) Interval history since last seen: no appetite but eating better now out of bed. Exam Narrative Exam Narrative: General: Patient appears older than stated age, alert and oriented x3 in no acute distress while lying on his back in bed. He is moderately obese. He does have a prominent abdominal girth. HEENT: Normocephalic, tender to palpation with slight swelling over left frontoparietal area scalp with some bruising but no skin breakdown, eyes with pupils equal and reactive to light symmetrically, extraocular movement intact and sclera anicteric. Oropharynx with moist mucosa and patient is edentulous. Neck: Supple without JVD. Back: Patient was examined lying flat in bed complains of tenderness over his mid back. Chest: No tenderness to compression of the chest wall. Lungs: Bronchovesicular breath sounds diffusely with fair aeration and no focalized rales or rhonchi. Heart: Regular rate and rhythm with distant heart sounds, no appreciable murmur or gallop. Abdomen: Protuberant but soft with bowel sounds positive but hypoactive diffusely. No focalizing tenderness but slight guarding to deep palpation diffusely. No appreciable hepatosplenomegaly. Genitalia/rectal: Exam deferred. Patient does have Kingsley catheter in place with circumcised penis. Extremities: Without clubbing, cyanosis or edema. Right thumb has bandage where he has had laceration repaired per patient. Skin: Normal color, warm and dry. Neuro: No focalizing motor deficits. Reflexes symmetrical and intact. No movement. Cranial nerves II through XII grossly intact. Psych: Normal affect and mood. No abnormal thought processes. Remote and recent memory intact. Const General: cooperative, comfortable, no acute distress and frail appearing Nutritional Appearance: overweight Orientation: alert, awake and oriented x3 HENMT Head: normal to inspection and normocephalic Mouth: moist mucous membranes abnormal (dry) Eyes Alignment and Position: alignment normal and position normal Neck Neck: normal visual inspection Chest Chest: normal inspection of the chest Resp Effort & Inspection: normal respiratory effort Auscultation: clear to auscultation bilaterally Cardio Rate: regular rate Rhythm: regular rhythm Heart Sounds: S1 normal and S2 normal Pulses: radial pulses present and dorsalis pedis present GI Inspection: distended Palpation: soft, not rigid and nontender Percussion: tympanic to percussion Auscultation: normal bowel sounds Other: Kingsley to gravity, draining jhonatan urine 24 hour urine output 250 ml Skin Rashes: no rashes Trauma: laceration (right thumb, dressing intact) Neuro General: patient alert, patient awake, patient oriented x3 and no focal motor deficits Cognition: normal cognition Speech: speech normal Gait: normal gait Extrem General: normal to inspection, full ROM and no pedal edema Left lower extremity: foot (unable to tell that foot sole is touch, mobiltiy intact ) Psych Appearance: grossly normal Mental Status: mental status grossly normal Speech and Movement: speech and movement normal Attitude: cooperative Objective Last Vital Signs Temp 99.5 F 07/10/21 11:25 Pulse 70 07/10/21 11:32 Resp 12 07/10/21 11:32 BP 122/63 07/10/21 11:25 Pulse Ox 96 07/10/21 11:32 Laboratory Results - last 24 hr 07/10/21 11:29 WBC 8.35 RBC 3.39 L Hgb 11.3 L Hct 34.5 L MCV 102 H MCH 33.3 H MCHC 32.8 RDW 12.3 Plt Count 143 MPV 11.5 H Immature Gran % 0.4 Neutrophils % 68.3 Lymphocytes % 17.4 Monocytes % 9.5 Eosinophils % 3.8 Basophils % 0.6 Nucleated RBC % 0.0 Absolute Neutrophils 5.71 Absolute Lymphocytes 1.45 Absolute Monocytes 0.79 Absolute Eosinophils 0.32 Absolute Basophils 0.05
[2021-07-10 12:05] LABS: ALT 32 U/L (16-63); AST 28 U/L (15-37); Albumin 2.8 g/dL (3.4-5.0); Alkaline Phosphatase 103 U/L (46-116); Anion Gap 7.3 mmol/L (3-11); BUN 26 mg/dL (7-18); Bilirubin, Total 0.9 mg/dL (0.2-1.0); CO2 24.7 mmol/L (21.0-32.0); CREATININE 1.1 mg/dL (0.70-1.30); Calcium 8.6 mg/dL (8.5-10.1); Chloride 103 mmol/L (98-107); Glucose 116 mg/dL (74-106); Potassium 4.1 mmol/L (3.5-5.1); Sodium 135 mmol/L (136-145); Total Protein 6.5 g/dL (6.4-8.2)
[2021-07-10] MEDS: Ketorolac 15 MG/ML VIAL IVP (12:16)
[2021-07-10] MEDS: Meclizine 25 MG TAB PO ×2 (12:16→17:47)
[2021-07-10] MEDS: Lidocaine 5% Patch 2 PATCH TP (12:17)
[2021-07-10] MEDS: Polyethylene Glycol 3350 17 GM PACKET PO ×2 (12:17→20:09)
[2021-07-10 12:38] LABS: Procalcitonin < 0.1 ng/mL
--- NOTE | 2021-07-10 13:41 | PTTR_ITS ---
Date of service: 07/10/21 Time of Service: 11:45 PT Notes Visit Reasons: Syncope, T11 Vertebral Body Fx, Right Ribs Fx Inpatient Physical Therapy Treatment Note Date: 07/10/2021 Precautions:? Back precautions on.? Fall. Subjective:? States that he is dizzy at baseline however he still feels that the severity of his dizziness contiues to increase risk for falls. Objective:? General Observation: Kingsley catheter in place.? Telemetry monitoring in place.? Bruising in right upper extremity and L side of trunk.? Oxygen supplementation at 3 L/min via NC. Mental Status: Alert and oriented x3 Pain: 4/10 pain and mid back at rest 8/10 with weight bearing Vital Signs: See nursing measurements on orthostatics Bed Mobility/Transfers:? Supine to sit minimal assist with HOB at 45 degrees Sit to stand contact-guard assist of 2 Stand to sit standby assist Bed to chair contact-guard assist of 2 Chair to bed contact-guard assist of 2 Gait:? In the morning tolerated 12 steps from bedside to reclining chair using front wheel walker with contact-guard assist of PT and standby assist of LMA Beverley for safety. No loss of balance but did report dizziness that limited mobility performance. 3 L of oxygen per minute. In the afternoon patient was able to tolerate 20 sit to stands at 25 feet using same device with continued report of dizziness. Balance:? Static Sitting: Normal Dynamic Sitting: Good Static Standing: Fair Dynamic Standing: Fair Assessment:?? Continue to pre-medicate for pain for PT sessions. Pain tolerance beginning to improve. Shakiness while in the upright position greatly diminished compared to yesterday. Wheelchair follow needed along with stand by assist of a second p erson. Remains orthostatic. Per Dr. Cartagena, no back brace is needed at this time. DISCHARGE RECOMMENDATIONS: [] ? Home with no services [] [] ? Home with services [specify] [] ? Home with outpatient PT [] [X] ? SNF for continued rehabilitation.? Patient will benefit from home health PT services in order to progress mobility level using least restrictive assistive ambulatory device, assess home safety, identify additional equipment needs, and establish a functional maintenance program that will increase ability of patient to remain at home. [] ? [facility] [] [] ? SNF versus LTC based on ability to participate and progress [] TREATMENT CODE/TIME: Session 1--9753 0 x 23 minutes beginning at 11:45 AM. Session 2--9753 0 x 26 minutes beginning at 13:41 PM.
--- NOTE | 2021-07-10 16:26 | CMPROGNOTE_ITS ---
- If Service Date Differs Date of service: 07/10/21 Time of Service: 16:26 Care Management Progress Note S/O: Tyler was sitting up in bed when CM met with him. He was awake, alert and easy to engage in conversation. Tyler is open to going to the [place], however no beds are available. CM will send a SNF referral to [facility]. CM spoke with Blanka from [facility] and asked that she reach out to patient at his request. Tyler is still waiting to see if he can have an MRI. CM will reach out to Kirsten from the [place] in the morning. A: 81 year old male admitted to [facility] on 07/07/21 for Syncope, T11 Vertebral Fx, Right rib fx. P: Disposition undetermined at this time. Anticipate Tyler will transfer to the [place] vs. [facility] for SNF when medically ready. CM will send a rend a referral to [facility] in the morning. Medical records are needed from the [place] to clarify if Tyler can have a MRI, or not. MARCUS continues to follow.
--- NOTE | 2021-07-10 16:26 | PDOC.CMPRO ---
- If Service Date Differs Date of service: 07/10/21 Time of Service: 16:26 Care Management Progress Note S/O: Tyler was sitting up in bed when CM met with him. He was awake, alert and easy to engage in conversation. Tyler is open to going to the [place], however no beds are available. CM will send a SNF referral to [facility]. CM spoke with Blanka from [facility] and asked that she reach out to patient at his request. Tyler is still waiting to see if he can have an MRI. CM will reach out to Kirsten from the [place] in the morning. A: 81 year old male admitted to [facility] on 07/07/21 for Syncope, T11 Vertebral Fx, Right rib fx. P: Disposition undetermined at this time. Anticipate Tyler will transfer to the [place] vs[place] [facility] for SNF when medically ready. CM will send a rend a referral to [facility] in the morning. Medical records are needed from the [place] to clarify if Tyler can have a MRI, or not. MARCUS continues to follow.
[2021-07-10] MEDS: LORazepam 1 MG TAB PO (18:41)
[2021-07-10] MEDS: Atorvastatin 10 MG TAB PO (20:11)
[2021-07-10] MEDS: traZODone 100 MG TAB 200 MG PO (21:41)
[2021-07-10] MEDS: Tamsulosin 0.4 MG CAPCR PO (21:42)
[2021-07-10] MEDS: Lidocaine Patch Removal 2 EACH TD (21:43)
[2021-07-10] MEDS: nitroGLYcerin 0.4 MG TAB SL (23:40)
[2021-07-11] VITALS (19 sets, daily range): BP systolic 127–159; BP diastolic 64–78; PULSE 72–96; RESP 1–23; TEMP 36.2–37.9; O2SAT 93–99
[2021-07-11] MEDS: Acetaminophen 500 MG TAB 1000 MG PO ×2 (05:27→23:46)
[2021-07-11] MEDS: Albuterol/Ipratropium 3 ML UPD VIAL UPD ×4 (08:14→19:44)
[2021-07-11] MEDS: Omeprazole 20 MG CAPCR 40 MG PO (08:35)
[2021-07-11] MEDS: MORPHine 4 MG/ML SYR IVP (09:00)
[2021-07-11] MEDS: Normal Saline Flush 10 ML SYR IVP ×2 (09:00→19:43)
--- NOTE | 2021-07-11 09:28 | PDOC.CMPRO ---
- If Service Date Differs Date of service: 07/11/21 Time of Service: 09:28 Care Management Progress Note S/O: MARCUS spoke with Kirsten from the [place], she will put a request through to Tyler's [facility] provider for records, and will seek clarification in regards to having a MRI. Per Kirsten from the [place], Tyler's inpatient stay and SNF will be billed to Medicare. [facility] could help assist with an acute rehab like [facility] if MD and PT feel it's appropriate. MARCUS discussed acute Rehab with Ramya in PT and she does not feel Tyler is appropriate for acute rehab at this time. [facility] him, she is concerned about his unmet need for a MRI and being appropriate for SNF. A palliative care consult may be beneficial. A: 81 year old male admitted to [facility] on 07/07/21 for Syncope, T11 Vertebral Fx, Right rib fx. P: Disposition undetermined at this time. Anticipate Tyler will transfer to SNF, when medically ready vs, transition to [facility] for additional PT/OT. [facility] is reviewing his referral. Medical records are needed from the [place] to clarify if Tyler can have a MRI, or not. CM continues to support discharge planning needs.
[2021-07-11] MEDS: Lidocaine 5% Patch 2 PATCH TP (10:08)
--- NOTE | 2021-07-11 11:46 | W.PM.PROGNOT ---
Date of Service Date of service: 07/11/21 Time of Service: 11:47 Assessment and Plan Assessment and plan (1) Thoracic vertebral fracture: Status: Acute Assessment and plan: vertebral body T11, stable. continue PT/OT pain management will need outpatient spine follow up TLSO or [place] brace (2) Laceration of right thumb: Status: Acute Assessment and plan: routine wound care sutures out in 7-10 days (july 14-) (3) Syncope: Status: Acute Assessment and plan: troponins negative telemetry no dysrhythmias will need further work up but likely d/t orthostatic hypotension. and has history of BPV IV fluids given as po intake was poor on admission yesterday. will recheck labs in am. (4) COPD (chronic obstructive pulmonary disease): Status: Chronic Assessment and plan: stable continue home inhalers pulmonary toilet (5) Peripheral neuropathy: Status: Chronic Assessment and plan: stable and at baseline (6) Hypertension: Status: Chronic Assessment and plan: antihypertensives on hold d/t orthostatic hypotension, now resolved. will add 1/2 dose lisinopril back and continue to closely monitor (7) DVT prophylaxis: Status: Acute Assessment and plan: enoxaparin and teds. (8) Discharge planning issues: Status: Acute Assessment and plan: case management following anticipate inpatient rehab, [place] connected. discussed with Dr Huff Subjective Subjective Patient reports: tolerating liquids well, tolerating a regular diet and shortness of breath; denies afebrile Interval history since last seen: patient with episode of reported hallucinations and shaking last evening. evaluated and patient is oriented to person place and time and in no distress, resting tremor to right hand which was noted earlier today. no other tremors noted. pupils are constricted but reactive. no distress noted. exam not consistent with acute withdrawal from alcohol Exam Const General: cooperative, frail appearing, ill appearing chronically and other (resting tremor right hand) Nutritional Appearance: average body habitus Orientation: alert, awake and oriented x3 HENMT Head: normal to inspection, normocephalic and atraumatic Mouth: moist mucous membranes abnormal (dry) Eyes Alignment and Position: alignment normal Periorbital: periorbital findings normal Eyelids: eyelids normal Conjunctivae: conjunctivae normal Sclera: sclerae normal Pupils: pupil size (2 mm and reactive) bilaterally EOM: EOM intact bilaterally Chest Chest: normal inspection of the chest Resp Effort & Inspection: normal respiratory effort Auscultation: clear to auscultation bilaterally Cardio Rate: regular rate Rhythm: regular rhythm GI Inspection: distended Palpation: soft, not rigid and nontender Percussion: tympanic to percussion Auscultation: hypoactive bowel sounds Skin Rashes: no rashes Trauma: laceration (right thumb, dressing intact) Neuro General: patient alert, patient awake, patient oriented x3 and no focal motor deficits Cognition: normal cognition Speech: speech normal Gait: normal gait Extrem General: normal to inspection, full ROM and no pedal edema Objective Last Vital Signs Temp 36.7 C 07/11/21 08:20 Pulse 74 07/11/21 08:20 Resp 22 07/11/21 08:20 BP 127/64 07/11/21 08:20 Pulse Ox 95 07/11/21 08:20 Laboratory Results - last 24 hr 07/10/21 07/10/21 11:29 11:29 Sodium 135 L Potassium 4.1 Chloride 103 Carbon Dioxide 24.7 Anion Gap 7.3 BUN 26 H D Creatinine 1.1 Estimated GFR/1.73 m2 >= 60.00 Glucose 116 H Calcium 8.6 Total Bilirubin 0.9 AST 28 ALT 32 Alkaline Phosphatase 103 Total Protein 6.5 Albumin 2.8 L Procalcitonin < 0.1
--- NOTE | 2021-07-11 14:18 | PT.INTREAT ---
Date of service: 07/11/21 Time of Service: 11:20 PT Notes Visit Reasons: Syncope, T11 Vertebral Body Fx, Right Ribs Fx Inpatient Physical Therapy Treatment Note [facility] Date: 07/11/2021 PRECAUTIONS: Back precautions, Fall, Activity as tolerated SUBJECTIVE: Tyler is agreeable to participating in PT, although he reports that he is nervous about getting up and walking because he has been feeling dizzy. OBJECTIVE: PAIN: Patient c/o back pain with transfers and bed mobility BED MOBILITY/TRANSFERS Supine-sit: Min A with HOB at 45 degrees Sit-supine: Min A with HOB flat Sit-stand: CGA Stand-sit: CGA Bed-Chair: CGA Chair-bed: CGA GAIT Assistive Device: FWW Weight bearing: Full Assist: CGA Distance: 20' in a.m.; 20' in p.m. Deviation: C/o dizziness, increased back pain VITALS: VS obtained by primary nurse post gait training THEREX: Patient was instructed in a LE strengthening program, completed in both seated and long sitting positions, as per flow sheet. ASSESSMENT: Patient tolerated session with c/o increased LBP with transfers and bed mobility. He appears limited due to pain and dizziness with activity. PLAN: Continue with global strengthening and general conditioning for improved mobility and activity tolerance. TREATMENT CODE/TIME: Session 1: 30 minutes; 40033 x2 (11:20) Session 2: 24 minutes; 57723, [id number] (13:46)
[2021-07-11] MEDS: Atorvastatin 10 MG TAB PO (19:42)
[2021-07-11] MEDS: Polyethylene Glycol 3350 17 GM PACKET PO (19:42)
[2021-07-11] MEDS: Docusate Sodium 100 MG CAP PO (19:42)
[2021-07-11] MEDS: Ketorolac 15 MG/ML VIAL IVP (19:42)
[2021-07-11] MEDS: Magnesium Gluconate 500 MG TAB PO (19:42)
[2021-07-11] MEDS: traZODone 100 MG TAB 200 MG PO (21:09)
[2021-07-11] MEDS: Tamsulosin 0.4 MG CAPCR PO (21:09)
[2021-07-11] MEDS: Lidocaine Patch Removal 2 EACH TD (21:10)
[2021-07-12] VITALS (19 sets, daily range): BP systolic 116–161; BP diastolic 65–75; PULSE 66–91; RESP 1–20; TEMP 36.4–37.2; O2SAT 92–98
[2021-07-12] MEDS: oxyCODONE 5 MG TAB PO (00:54)
[2021-07-12 07:14] LABS: Abs Immature Grans 0.03 10^3/uL (0.0-0.06); Absolute Basophil Count 0.05 10^3/uL (0.0-0.2); Absolute Eosinophil Count 0.42 10^3/uL (0.0-0.7); Absolute Lymphocyte Count 1.27 10^3/uL (1.2-3.4); Absolute Neutrophil Count 4.51 10^3/uL (1.2-6.7); Basophils % 0.7; HCT 31.6 % (40.0-50.0); HGB 10.6 g/dL (13.5-17.5); Immature Grans % 0.4; Lymphocytes % 18.2; MCHC 33.5 % (32.0-36.0); MCV 98.4 fL (80-95); MPV 11.7 fL (8.0-11.0); Neutrophils % 64.7; Platelet Count 142 10^3/uL (130-400); RBC 3.21 10^6/uL (4.36-5.78); RDW 12.1 % (11.8-14.1); WBC 6.98 10^3/uL (4.4-10.8)
[2021-07-12 07:29] LABS: Anion Gap 4.2 mmol/L (3-11); BUN 15 mg/dL (7-18); CO2 26.8 mmol/L (21.0-32.0); CREATININE 0.8 mg/dL (0.70-1.30); Calcium 8.7 mg/dL (8.5-10.1); Chloride 104 mmol/L (98-107); Glucose 102 mg/dL (74-106); Potassium 3.8 mmol/L (3.5-5.1); Sodium 135 mmol/L (136-145)
[2021-07-12] MEDS: Albuterol/Ipratropium 3 ML UPD VIAL UPD ×4 (07:33→19:21)
[2021-07-12] MEDS: Normal Saline Flush 10 ML SYR IVP ×4 (07:38→19:27)
[2021-07-12] MEDS: Polyethylene Glycol 3350 17 GM PACKET PO ×2 (07:38→19:21)
[2021-07-12] MEDS: Milk of Magnesia 30 ML CUP PO (07:39)
[2021-07-12] MEDS: Cyanocobalamin 500 MCG TAB 1000 MCG PO (07:40)
[2021-07-12] MEDS: Omeprazole 20 MG CAPCR 40 MG PO (07:40)
[2021-07-12] MEDS: Aspirin 81 MG CHEW PO (07:40)
[2021-07-12] MEDS: Folic Acid 1 MG TAB PO (07:40)
[2021-07-12] MEDS: Multivitamin TAB 1 TAB PO (07:40)
[2021-07-12] MEDS: Loratidine 10 MG TAB PO (07:40)
[2021-07-12] MEDS: Docusate Sodium 100 MG CAP PO ×2 (07:40→19:21)
[2021-07-12] MEDS: Ketorolac 15 MG/ML VIAL IVP ×4 (07:40→19:18)
[2021-07-12] MEDS: Magnesium Gluconate 500 MG TAB PO ×2 (07:40→19:21)
[2021-07-12] MEDS: Lidocaine 5% Patch 2 PATCH TP (10:21)
[2021-07-12] MEDS: Meclizine 25 MG TAB PO (10:52)
--- NOTE | 2021-07-12 11:00 | W.PM.PROGNOT ---
Date of Service Date of service: 07/12/21 Time of Service: 11:00 Assessment and Plan Assessment and plan (1) Hallucinations: Status: Acute Assessment and plan: The patient denies EtOH w/d but reports chronic vertigo, tremor, ataxia. I think that he probably has a component of Wernicke's. Additionally, the patient did have a large left frontal scalp hematoma, for which a repeat CT of the head was recommended to ensure he does not have a developing subdural hematoma. Repeat CT head. Start high dose thiamine. I do not suspect alcohol withdrawal at this time as the patient is very believable when he says he did not drink, but will keep a close eye on his symptoms. (2) Syncope: Status: Acute Assessment and plan: In setting of orthostatic hypotension. Recheck orthostatic VS, obtain echo. No evidence of arrhythmias on tele. (3) Thoracic vertebral fracture: Status: Acute Assessment and plan: Traumatic fx of vertebral body T11, stable per CT. Ambulating with PT. Check Vitamin D level. Not able to fit into a TLSO brace. Continue PT/await OT Pain management - limit tylenol to 2 grams daily. will need outpatient spine follow up (4) Intention tremor: Status: Acute Assessment and plan: As above. 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 Trial thiamine IV. OT consulted but unavailable until next week. (5) Laceration of right thumb: Status: Acute Assessment and plan: Continue wound care sutures out July 14- (6) COPD (chronic obstructive pulmonary disease): Status: Chronic Assessment and plan: Not in acute exacerbation. Continue home inhalers. Encourage pulmonary toilet. (7) Peripheral neuropathy: Status: Chronic Assessment and plan: stable and at baseline Continue B12 repletion. Consider gabapentin. (8) Hypertension: Status: Chronic Assessment and plan: Recheck orthostatic VS prior to re-introduction of lisinopril. (9) DVT prophylaxis: Status: Acute Assessment and plan: TEDs. Hold on chemical DVT ppx due to possibility of a subdural hematoma. (10) Discharge planning issues: Status: Acute Assessment and plan: SN[facility] D[facility] Subjective Subjective Interval history since last seen: Mr Pratt reports feeling like there are people in his room when he knows there are none as well as noticing himself talking to himself. He reported to the nurse that he was hearing voices, but denied this to me this morning. He states (firmly and categorically) that he has not had an alcoholic beverage in a year and a half and that his tremor is chronic. He is dizzy even in bed today. He is not sure if it's his chronic vertigo. Denies h/a. Denies CP, SOB, n/v/abdominal pain. Exam Narrative Exam Narrative: General: Pleasant elderly male, A&Ox3 (does not know who the president is), does have BUE tremor, exaggerated when he tries to hold a medicine cup HEENT: EOMI, MMM, Lsided evolving scalp/moravian hematoma Heart: RRR, no m/r/g Lungs: CTAB/diminished breath sounds B Abdomen: soft, mildly distended, nontender Extremities: no edema BLEs, wearing TEDs. Objective Last Vital Signs Temp 36.5 C 07/12/21 10:40 Pulse 74 07/12/21 10:40 Resp 20 07/12/21 10:40 BP 138/72 07/12/21 10:40 Pulse Ox 95 07/12/21 10:40 Laboratory Results - last 24 hr 07/12/21 07/12/21 06:45 06:45 WBC 6.98 RBC 3.21 L Hgb 10.6 L Hct 31.6 L MCV 98.4 H MCH 33.0 MCHC 33.5 RDW 12.1 Plt Count 142 MPV 11.7 H Immature Gran % 0.4 Neutrophils % 64.7 Lymphocytes % 18.2 Monocytes % 10.0 Eosinophils % 6.0 Basophils % 0.7 Nucleated RBC % 0.0 Absolute Neutrophils 4.51 Absolute Lymphocytes 1.27 Absolute Monocytes 0.70 Absolute Eosinophils 0.42 Absolute Basophils 0.05 Sodium 135 L Potassium 3.8 Chloride 104 Carbon Dioxide 26.8 Anion Gap 4.2 BUN 15 D Creatinine 0.8 Estimated GFR/1.73 m2 >= 60.00 Glucose 102 Calcium 8.7 Objective Narrative Objective Narrative: CT head pending
[2021-07-12 11:23] LABS: Lab Add On Test DONE
--- NOTE | 2021-07-12 11:47 | CMPROGNOTE_ITS ---
- If Service Date Differs Date of service: 07/12/21 Time of Service: 11:47 Care Management Progress Note S/O: Tyler is laying in bed when CM comes to meet with him. He easily engages in conversation but is coughing intermittently. CM inquires if anyone can stop by his apartment and get his shoes, as PT has requested that Tyler wear his shoes when doing physical therapy. Tyler states that Carmelo, his [facility] case hardener, would be able to do that. With his permission, CM telephones Carmelo. She advises she has been trying to contact Tyler's cleaning lady, as she can enter the apartment and gather the things Tyler needs, but has not connected with her yet. Carmelo states she will continue to try to reach the cleaning lady. She additionally plans on visiting Tyler at some point tomorrow. Tyler met with Dr. Combs and had an echocardiogram today. Per provider, he is also having a repeat CT of the head to ensure the left frontal scalp hematoma is not developing into a subdural hematoma. A: Tyler is a 81 year old male admitted to [facility] on 07/07/21 for Syncope, T11 Vertebral fx, Right rib fx. P: Disposition undetermined at this time. Anticipate Tyler will transfer to SNF when medically ready vs. transition to [facility] for additional PT/OT. [facility] is reviewing his referral. [facility] to clarify if yTler can have a MRI, or not. CM continues to support discharge planning needs.
[2021-07-12] MEDS: THIAMINE 500 MG in Normal Saline 100 ML 200 MG IVPB ×2 (12:08→19:17)
[2021-07-12 12:09] LABS: Bilirubin Negative (Negative); Blood Moderate (Negative); Clarity Clear (Clear); Glucose Negative (Negative); Ketones Negative (Negative); Leukocyte Esterase Negative (Negative); Nitrite Negative (Negative); pH 6.5 (5-8)
[2021-07-12] MEDS: Normal Saline 500 ML 30 ML IV (12:09)
[2021-07-12 12:17] LABS: Bacteria Negative HPF (Negative); C & S Indicated? C&S Done As Ordered; Casts Negative LPF (Negative); Crystals Negative HPF (Negative); Epithelial Cells Rare HPF (Negative); Mucus Negative (Negative); WBC Negative HPF (0-5)
--- NOTE | 2021-07-12 12:42 | DI.US_ITS ---
APPROVED REPORT EXAM: Comprehensive 2D, Doppler, and color-flow Echocardiogram Patient Location: In-Patient Room/Bed: [address] Automatic: Mi Coppola RDCS (AE) Indications: Syncope, COPD, HTN Other Information Study Quality: Fair. Technically limited study due to body habitus, inability to position patient, no n responsive patient. Exam done supine bedside. Conclusion Normal left ventricular wall thickness and chamber size. Estimated ejection fraction 55 to 60%. Wal l motion is normal Normal right ventricular size and systolic function Both atria are normal in size Aortic valve is sclerotic without stenosis or regurgitation. Number of aortic valve leaflets could n ot be accurately assessed Mitral annular calcification, mild mitral regurgitation Normal tricuspid valve with trace regurgitation. Estimated right ventricular systolic pressure is 56 mmHg Mildly dilated ascending aorta, 3.58 cm Wall motion Left Ventricle The left ventricle is normal size. The left ventricular systolic function is normal. The left ventric ular ejection fraction is within the normal range. There is normal left ventricular wall thickness. T here is normal LV segmental wall motion. There is no ventricular septal defect visualized. LVEF is 57 %. Right Ventricle Right ventricle is grossly normal in size. Right ventricular systolic function is grossly normal. The RVSP is 56.2 mmHg. Atria The left atrium size is normal. The right atrium size is normal. The interatrial septum is intact wit h no evidence for an atrial septal defect. Aortic Valve The Aortic valve is sclerotic. Number of aortic valve leaflets could not be assessed. No hemodynamica lly significant valvular aortic stenosis. No aortic regurgitation is present. Mitral Valve Moderate mitral annular calcification. No evidence of mitral valve stenosis. Mild mitral regurgitatio n. Tricuspid Valve The tricuspid valve is normal in structure. There is no tricuspid valve stenosis. Trace tricuspid reg urgitation. Pulmonic Valve The pulmonary valve is normal in structure. There is no pulmonic valvular stenosis. Mild pulmonic reg urgitation. Great Vessels The aortic root is normal in size. The ascending aorta is mildly dilated.3.58 cm Aortic arch is not w ell visualized. The IVC collapses <50% with normal respiration. Pericardium There is no pericardial effusion. Prominent anterior epicardial fat pad is present. 2D Dimensions IVSD d PLAX 1.11 cm M: 0.6-1.2 LV Vol A2C d MOD 70.6 mL LVPW d PLAX 1.13 cm M: 0.6 - 1.2 LV Vol A4C d MOD 84.1 mL LVID d PLAX 4.58 cm M: 4.2 - 5.8 LA vol/ BSA A4C s A-L 26.8 mL/m2 LVDs 3.10 cm M: 2.5 - 4.0 LA Area A4C s MOD 19.73 cm2 Ao Root d 3.09 cm M: 3.1 - 3.7 LV EF A4C MOD 55.5 % RA Area A4C 19.70 cm2 LV EF A2C MOD 58.6 % RA Vol/ BSA A4C s A-L 24.4 mL/m2 LV EF Biplane MOD 56.3 % Ao Asc Diam d 3.58 cm M: 2.6 - 3.4 SV 44.58 mL LV EF Teichholz 59.7 % SV Index 20.77 mL/m2 LVEF (Howe's) 56.30 % M: 52 - 72 LV Volume 58.04 mL M: 62 - 150 LV Volume Index 27.12 mL/m2 M: 34 - 74 LV Vol Biplane MOD 79.2 mL FS 31.65 % M-Mode TAPSE 2.12 cm (M/F) >1.7 LV Diastology MV E' medial 0.078 (>0.07 m/s) E/A Ratio 1.9 LV E/e MED 11.90 (<14) MV E Vmax 0.93 (0.4-1.3 m/s) MV E' lateral 0.054 (>0.1 m/s) MV A Vmax 0.50 (0.4-1.3 m/s) LV E/e LAT 17.30 (<14) MV E/A Ratio 1.71 MV E/E' medial 11.92 MV E/E' lateral 17.33 Aortic Valve LVOT Area 2.83 cm2 AoV Area Vmax 2.33 cm2 LVOT Vmax 1.35 m/s AoV Area/ BSA (Vmax) 1.09 cm2/m2 LVOT Mean Raoul. 1.03 m/s ELLEN Mean Raoul. 2.53 cm2 LVOT Peak Grad 7.3 mmHg ELLEN Mean Raoul. Index 1.18 cm2/m2 LVOT Mean Grad 4.7 mmHg LVOT VTI 0.308 m LVOT Diam s 1.85 cm AoV Vmax 1.64 m/s Velocity Ratio 0.82 AoV Mean Raoul. 1.15 m/s AoV Peak Grad 10.8 mmHg LVOT SV 87.13 mL AoV Mean Grad 5.9 mmHg AoV VTI 0.294 m AoV Area VTI 2.96 cm2 AoV Area/ BSA (VTI) 1.38 cm/m2 Mitral Valve MV DT 166 (160-240 msec) MV PHT 48 msec MV Area PHT 4.58 cm2 MV VTI 0.262 m MV Area VTI 3.32 (4.0-6.0 cm2) Pulmonary Valve PV Vmax 1.10 (0.5-1.5 m/s) RVOT Peak Gr. 2.93 mmHg PV Peak Grad 4.8 mmHg RVOT Mean Gr. 1.40 mmHg PV Mean Grad 2.5 mmHg RVOT VTI 0.153 m PV VTI 0.169 m RVOT Vmax 0.86 m/s Tricuspid Valve TR Peak Grad 48.1 mmHg TR Vmax 3.47 m/s RA Pressure 8.00 mmHg RVSP (TR) 56.2 mmHg
[2021-07-12 12:45] LABS: Vitamin B12 386 pg/mL (193-986)
[2021-07-12 13:16] LABS: Folate > 20.0 ng/mL (8.6-20.0)
--- NOTE | 2021-07-12 14:51 | PTTR_ITS ---
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 OBJECTIVE: Requested that patient get family or friend to bring in shoes for gait training, also mentioned to care management. PAIN: Patient c/o B foot pain with gait training due to chronic peripheral neuropathy BED MOBILITY/TRANSFERS Supine-sit: CGA with HOB at 40 degrees Sit-stand: CGA Stand-sit: CGA GAIT Assistive Device: FWW Weight bearing: Full Assist: CGA Distance: 20' + 15' Deviation: C/o B foot pain VITALS: 90-94% on RA with gait training TOILETING: Patient toileted with assist on commode ASSESSMENT: Patient tolerated session with c/o increased B foot pain with gait training, which appeared to limit his willingness to participate and progress gait distance. He did not c/o dizziness or back pain today. PLAN: Continue with global strengthening and general conditioning for improved mobility and activity tolerance. TREATMENT CODE/TIME: Session 1: 27 minutes; 32411 x2 (07:44) Session 2: Patient not available in p.m.
--- NOTE | 2021-07-12 16:46 | DI.CT_ITS ---
Exam(s) CT HEAD WO EXAM: CT HEAD WO CLINICAL HISTORY: f/u prior CT - concern for subdural hematoma. TECHNIQUE: Imaging Protocol: Axial computed tomography images with coronal and sagittal reformatted images were created and reviewed COMPARISON: CT CT HEAD CERVICAL SPINE WO from 07/07/2021 FINDINGS: The size of the left frontal scalp hematoma has somewhat decreased. No skull fractures. There is n o evidence of intracranial hemorrhage, intra or extra-axial. No evidence of delayed subdural hematom a. No territorial infarction. Symmetrical involutional change again noted. Again noted are previously described nasal bone fractures and medial right orbital wall fractures, no t new. Mucosal thickening and some fluid in the left maxillary sinus is again noted. Mild circumfer ential mucosal thickening in the right maxillary sinus again noted. Opacification of the sphenoid si nus again noted. IMPRESSION: No acute intracranial findings. No evidence of delayed subdural hematoma.. Other findings as above. RADIATION DOSE DELIVERED: 801.82mGy.cm Total DLP DATA REPOSITORY: All CT scans at this facility are submitted to the National Radiology Data Registry (NRDR) Dose Index Registry (DIR) with the [employer] (ACR). RADIATION OPTIMIZATION: All CT scans at this facility use at least one of these dose optimization te chniques: automated exposure control; mA and/or kV adjustment per patient size (includes targeted exa ms where dose is matched to clinical indication); or iterative reconstruction.
[2021-07-12] MEDS: Atorvastatin 10 MG TAB PO (19:20)
[2021-07-12] MEDS: Lactated Ringers 1,000 ML 75 ML IV (19:28)
[2021-07-12] MEDS: traZODone 100 MG TAB 200 MG PO (22:06)
[2021-07-12] MEDS: Tamsulosin 0.4 MG CAPCR PO (22:06)
[2021-07-13] VITALS (15 sets, daily range): BP systolic 103–150; BP diastolic 58–72; PULSE 19–84; RESP 1–24; TEMP 36.3–37.1; O2SAT 87–100
[2021-07-13] MEDS: oxyCODONE 5 MG TAB PO (00:11)
[2021-07-13] MEDS: MORPHine 4 MG/ML SYR IVP ×2 (01:48→23:46)
[2021-07-13] MEDS: THIAMINE 500 MG in Normal Saline 100 ML 200 MG IVPB ×3 (04:24→20:18)
[2021-07-13 06:33] LABS: Anion Gap 2.5 mmol/L (3-11); BUN 16 mg/dL (7-18); CO2 26.5 mmol/L (21.0-32.0); CREATININE 0.9 mg/dL (0.70-1.30); Calcium 8.7 mg/dL (8.5-10.1); Chloride 106 mmol/L (98-107); Glucose 110 mg/dL (74-106); Magnesium 2.1 mg/dL (1.8-2.4); Potassium 4.3 mmol/L (3.5-5.1); Sodium 135 mmol/L (136-145)
[2021-07-13] MEDS: Albuterol/Ipratropium 3 ML UPD VIAL UPD ×4 (08:02→20:18)
[2021-07-13] MEDS: Omeprazole 20 MG CAPCR 40 MG PO (09:00)
[2021-07-13] MEDS: Loratidine 10 MG TAB PO (09:00)
[2021-07-13] MEDS: Cyanocobalamin 500 MCG TAB 1000 MCG PO (09:00)
[2021-07-13] MEDS: Docusate Sodium 100 MG CAP PO (09:00)
[2021-07-13] MEDS: Folic Acid 1 MG TAB PO (09:00)
[2021-07-13] MEDS: Aspirin 81 MG CHEW PO (09:00)
[2021-07-13] MEDS: Acetaminophen 500 MG TAB 1000 MG PO (09:00)
[2021-07-13] MEDS: Multivitamin TAB 1 TAB PO (09:00)
[2021-07-13] MEDS: Magnesium Gluconate 500 MG TAB PO ×2 (09:01→20:21)
[2021-07-13] MEDS: Ketorolac 15 MG/ML VIAL IVP ×4 (09:01→20:21)
[2021-07-13] MEDS: Normal Saline Flush 10 ML SYR IVP ×4 (09:01→23:46)
--- NOTE | 2021-07-13 10:52 | PTTR_ITS ---
Date of service: 07/13/21 Time of Service: 07:33 PT Notes Visit Reasons: Syncope, T11 Vertebral Body Fx, Right Ribs Fx Inpatient Physical Therapy Treatment Note [facility] Date: 07/13/2021 PRECAUTIONS: Back precautions, Fall, Activity as tolerated SUBJECTIVE: Tyler is agreeable to participating in PT. He reports that he does not want to progress his gait distance today and that he will not walk again to day. He reports that he feels that he is not being updated on his medical status and that he does not know what is going on. OBJECTIVE: Discussed the importance of participating in PT for continued mobility progression. Discussed benefits to health and overall wellbeing with remaining active and mobile. PAIN: Patient reports no pain with gait training nor transfers, although reporting that he had significant back pain last night BED MOBILITY/TRANSFERS Supine-sit: S Sit-supine: I Sit-stand: SBA Stand-sit: SBA GAIT Assistive Device: FWW Weight bearing: Full Assist: SBA Distance: 25' x2 in a.m.; 40' in p.m. Deviation: SOB, slow pacing, seated rest VITALS: 87-94% on 1L O2 via NC with gait training in a.m.; 95-100% on 2L O2 via oxymask with gait training in p.m. THEREX: Patient was instructed in a LE strengthening program, completed at EOB, as per flow sheet. TOILETING: Patient toileted with assist ASSESSMENT: Patient tolerated session with c/o increased SOB and fatigue with gait training. He did not c/o dizziness or back pain today. PLAN: Continue with global strengthening and general conditioning for improved m obility and activity tolerance. TREATMENT CODE/TIME: Session 1: 32 minutes; [id number], [id number] (07:33) Session 2: 22 minutes; [id number] x2 (14:38)
--- NOTE | 2021-07-13 11:26 | CMPROGNOTE_ITS ---
- If Service Date Differs Date of service: 07/13/21 Time of Service: 11:26 Care Management Progress Note S/O: Tyler was lying flat in bed when CM met with him. He was resting quietly on 2L Oxymask. Tyler has been accepted to [facility] when he is medically ready. Per Chula in OT, based on Tyler's current level of function he may be able to discharge home with [facility] RN, PT, OT, NURSING EDUCATOR when medically cleared by M.D. PT recommends that he wear his shoes when working with them. Carmelo from [facility] is trying to help retrieve his shoes, and is trying to contact his housekeeper head for entry into his apartment. Carmelo is planning on stopping by today. Tyler met with Dr. Combs yesterday and had an echo and head CT. CM will continue to support discharge planning needs. A: Tyler is a 81 year old male admitted to [facility] on 07/07/21 for Syncope, T11 Vertebral fx, Right rib fx. P: Anticipate Tyler will discharge home with [facility] RN, PT, OT, NURSING EDUCATOR vs SNF for continue rehab. [facility] offered [facility] bed, when he is medically ready. Medical records are needed from the [place] to clarify if Tyler can have a MRI, or not. Tyler is connected to [facility], Carmelo is his community marketing coordinator. CM continues to support discharge planning needs.
--- NOTE | 2021-07-13 11:26 | PDOC.CMPRO ---
- If Service Date Differs Date of service: 07/13/21 Time of Service: 11:26 Care Management Progress Note S/O: Tyler was lying flat in bed when CM met with him. He was resting quietly on 2L Oxymask. Tyler has been accepted to [facility] when he is medically ready. Per Chula in OT, based on Tyler's current level of function he may be able to discharge home with [facility] RN, PT, OT, TRUCK TECHNICIAN when medically cleared by M.D. PT recommends that he wear his shoes when working with them. Carmelo from [facility] is trying to help retrieve his shoes, and is trying to contact his railroad track inspector for entry into his apartment. Carmelo is planning on stopping by today. Tyler met with Dr. Combs yesterday and had an echo and head CT. CM will continue to support discharge planning needs. A: Tyler is a 81 year old male admitted to [facility] on 07/07/21 for Syncope, T11 Vertebral fx, Right rib fx. P: Anticipate Tyler will discharge home with [facility] RN, PT, OT, TRUCK TECHNICIAN vs SNF for continue rehab. [facility] offered [facility] bed, when he is medically ready. Medical records are needed from the [place] to clarify if Tyler can have a MRI, or not. Tyler is connected to [facility], Carmelo is his community association manager. CM continues to support discharge planning needs.
[2021-07-13] MEDS: Lidocaine 5% Patch 2 PATCH TP (11:40)
[2021-07-13] MEDS: Lactated Ringers 1,000 ML 75 ML IV (13:27)
--- NOTE | 2021-07-13 14:31 | W.PM.PROGNOT ---
Date of Service Date of service: 07/13/21 Time of Service: 14:00 Assessment and Plan Assessment and plan (1) Hallucinations: Status: Resolved Assessment and plan: The patient denies EtOH w/d but reports chronic vertigo, tremor, ataxia, c/w Wernickes. Sx are better with IV thiamine. Continue IV thiamine. CT head w/o subdural. No evidence of EtOH withdrawal on my exam today. (2) Syncope: Status: Acute Assessment and plan: In setting of orthostatic hypotension, which is the likely primary cause. Remains orthostatic, despite IV hydration, and is now fluid overloaded. Has Pulmonary hypertension on echo - PE ruled out on admission. D/c IVF. Start midodrine. No evidence of arrhythmias on tele. (3) Thoracic vertebral fracture: Status: Acute Assessment and plan: Traumatic fx of vertebral body T11, stable per CT. Ambulating with PT. Vitamin D level pending. Not able to fit into a TLSO brace. Continue PT/await OT (not available until next week). Pain management - limit tylenol to 2 grams daily. will need outpatient spine follow up (4) Intention tremor: Status: Acute Assessment and plan: As above. 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 Continue thiamine IV. OT consulted but unavailable until next week. (5) Laceration of right thumb: Status: Acute Assessment and plan: Continue wound care sutures out July 14- (6) COPD (chronic obstructive pulmonary disease): Status: Chronic Assessment and plan: Not in acute exacerbation. Continue home inhalers. Encourage pulmonary toilet. Current oxygen requirement is more c/w fluid overload rather than COPD exacerbation. (7) Peripheral neuropathy: Status: Chronic Assessment and plan: stable and at baseline Continue B12 repletion. Consider gabapentin. (8) Hypertension: Status: Chronic Assessment and plan: Hold lisinopril. Still orthostatic. (9) DVT prophylaxis: Status: Acute Assessment and plan: TEDs. AVoid chemical DVT ppx due to a large scalp hematoma. (10) Discharge planning issues: Status: Acute Assessment and plan: SNF anticipated [facility] D[facility]c. [facility]/DNI Subjective Subjective Interval history since last seen: Mr Pratt denies hallucinations today, denies h/as, denies dizziness, chest pain, shortness of breath, nausea. He is on 2L of O2 by oxymask - he did not require this yesterday. Exam Narrative Exam Narrative: General: Pleasant elderly male, A&Ox3, BUE tremor a little better, no dyspnea/tachypnea/cyanosis in oxymask HEENT: EOMI, MMM, L sided evolving scalp/samaritan hematoma Heart: RRR, no m/r/g Lungs: crackles at B bases Abdomen: soft, mildly distended, nontender Extremities: no edema BLEs, wearing TEDs. Objective Last Vital Signs Temp 36.3 C L 07/13/21 14:21 Pulse 67 07/13/21 14:21 Resp 24 07/13/21 14:21 BP 103/58 L 07/13/21 14:21 Pulse Ox 98 07/13/21 14:21 Laboratory Results - last 24 hr 07/13/21 06:05 Sodium 135 L Potassium 4.3 Chloride 106 Carbon Dioxide 26.5 Anion Gap 2.5 L BUN 16 Creatinine 0.9 Estimated GFR/1.73 m2 >= 60.00 Glucose 110 H Calcium 8.7 Magnesium 2.1 Objective Narrative Objective Narrative: Echo: Normal left ventricular wall thickness and chamber size.? Estimated ejection fraction 55 to 60%.? Wall motion is normal Normal right ventricular size and systolic function Both atria are normal in size Aortic valve is sclerotic without stenosis or regurgitation.? Number of aortic valve leaflets could not be accurately assessed Mitral annular calcification, mild mitral regurgitation Normal tricuspid valve with trace regurgitation.? Estimated right ventricular systolic pressure is 56 mmHg Mildly dilated ascending aorta, 3.[address] head: No acute intracranial findings.? No evidence of delayed subdural hematoma..? Other findings as above.
[2021-07-13] MEDS: Furosemide 20 MG/2 ML VIAL IVP (14:38)
[2021-07-13] MEDS: Midodrine 2.5 MG TAB PO ×2 (16:01→20:21)
[2021-07-13] MEDS: Atorvastatin 10 MG TAB PO (20:21)
[2021-07-13] MEDS: traZODone 100 MG TAB 200 MG PO (21:19)
[2021-07-13] MEDS: Tamsulosin 0.4 MG CAPCR PO (21:20)
[2021-07-14] VITALS (12 sets, daily range): BP systolic 138–163; BP diastolic 67–76; PULSE 70–101; RESP 8–18; TEMP 36.7–37.1; O2SAT 90–94
[2021-07-14] MEDS: THIAMINE 500 MG in Normal Saline 100 ML 200 MG IVPB ×3 (04:04→20:05)
[2021-07-14] MEDS: oxyCODONE 5 MG TAB PO (06:17)
[2021-07-14 06:53] LABS: Anion Gap 5.5 mmol/L (3-11); BUN 16 mg/dL (7-18); CO2 27.5 mmol/L (21.0-32.0); CREATININE 0.8 mg/dL (0.70-1.30); Calcium 8.6 mg/dL (8.5-10.1); Chloride 106 mmol/L (98-107); Glucose 98 mg/dL (74-106); Sodium 139 mmol/L (136-145)
[2021-07-14] MEDS: Albuterol/Ipratropium 3 ML UPD VIAL UPD ×4 (07:25→20:02)
[2021-07-14] MEDS: Multivitamin TAB 1 TAB PO (08:20)
[2021-07-14] MEDS: Aspirin 81 MG CHEW PO (08:20)
[2021-07-14] MEDS: Ketorolac 15 MG/ML VIAL IVP ×4 (08:20→20:05)
[2021-07-14] MEDS: Omeprazole 20 MG CAPCR 40 MG PO (08:21)
[2021-07-14] MEDS: Magnesium Gluconate 500 MG TAB PO ×2 (08:21→20:04)
[2021-07-14] MEDS: Loratidine 10 MG TAB PO (08:21)
[2021-07-14] MEDS: Cyanocobalamin 500 MCG TAB 1000 MCG PO (08:21)
[2021-07-14] MEDS: Folic Acid 1 MG TAB PO (08:21)
[2021-07-14] MEDS: Docusate Sodium 100 MG CAP PO ×2 (08:21→20:04)
[2021-07-14] MEDS: Midodrine 2.5 MG TAB PO ×3 (08:21→20:04)
[2021-07-14] MEDS: Lidocaine 5% Patch 2 PATCH TP (09:58)
--- NOTE | 2021-07-14 11:02 | W.PM.PROGNOT ---
Date of Service Date of service: 07/14/21 Time of Service: 10:15 Assessment and Plan Assessment and plan (1) Hallucinations: Status: Resolved Assessment and plan: The patient denies EtOH w/d symptoms but reports chronic vertigo, tremor, ataxia, c/w Wernickes. Sx are better with IV thiamine. will continue. CT head w/o subdural on 07/13. No evidence of EtOH withdrawal on my exam today. (2) Syncope: Status: Acute Assessment and plan: In setting of orthostatic hypotension which is the likely primary cause Ortho static hypotension resolved,with midodrine regimen. Fluid overloaded addressed with IV furosemide, will receive home dose Lasix tomorrow Has Pulmonary hypertension on echo - PE ruled out on admission. No evidence of arrhythmias on previous tele monitoring during present stay (3) Insomnia: Status: Acute Assessment and plan: Trazodone dose increased to 300 mg oral HS as per patient's reported home med dose. Pharmacy consulted for validation of doses with [facility] and VA will be available on Friday. will add melatonin (4) Thoracic vertebral fracture: Status: Acute Assessment and plan: Traumatic fx of vertebral body T11, stable per CT. Rates pain 5/10 tolerable with current pain management; will continue pain management drugs with Acetaminophen dose limited to 2 grams daily. Ambulating with PT. Vitamin D level still pending. Not able to fit into a TLSO brace. Continue PT/await OT (not available until next week). will need outpatient spine follow up (5) Intention tremor: Status: Acute Assessment and plan: Tremors still present but decreased ? 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 Continue thiamine IV. OT consulted but unavailable until next week. (6) Laceration of right thumb: Status: Acute Assessment and plan: Continue wound care sutures out July 14- (7) COPD (chronic obstructive pulmonary disease): Status: Chronic Assessment and plan: Not in acute exacerbation. Will continue home inhalers. Encourage pulmonary toilet (IS, acapella). Current oxygen requirement decreased from 2l/min 1l/min c/w fluid overload rather than COPD exacerbation. (8) Peripheral neuropathy: Status: Chronic Assessment and plan: stable and at baseline Continue B12 repletion. Consider gabapentin. (9) Hypertension: Status: Chronic Assessment and plan: Hold lisinopril and Amlodipine, furosemide IV to be given re: fluid retention Orthostatic hypotension resolved, with midodrine regimen. (10) DVT prophylaxis: Status: Acute Assessment and plan: Continue TEDs. Will still avoid chemical DVT ppx due to a large scalp hematoma. (11) Discharge planning issues: Status: Acute Assessment and plan: SNF anticipated on D/c. [facility]. DNR/DNI discussed with DR Dowd I have independently examined patient and am in agreement with documentation, assessment and plan Subjective Subjective Interval history since last seen: Mr Pratt denies hallucinations this AM, denies dizziness, chest pain, shortness of breath, nausea. He is on 1L of O2 by n.c.; down from yesterday' requirement of 2 l/min . Reports lack of sleep last night. Exam Const General: cooperative, comfortable, no acute distress, frail appearing, ill appearing chronically and other (resting tremor right hand) Nutritional Appearance: average body habitus and overweight Orientation: alert, awake and oriented x3 HENMT Head: normocephalic (L sided evolving scalp/protestant hematoma) and atraumatic Mouth: moist mucous membranes Eyes Alignment and Position: alignment normal and position normal Periorbital: periorbital findings normal Sclera: sclerae normal Neck Neck: normal visual inspection Chest Chest: normal inspection of the chest Resp Effort & Inspection: normal respiratory effort Auscultation: clear to auscultation bilaterally and wheezes left upper (mid chest end-expiratory wheezing) Cardio Rate: regular rate Rhythm: regular rhythm Heart Sounds: S1 normal and S2 normal Pulses: radial pulses present and dorsalis pedis present GI Inspection: distended Palpation: soft, not rigid and nontender Percussion: tympanic to percussion Auscultation: normal bowel sounds and hypoactive bowel sounds Skin Rashes: no rashes Trauma: laceration (right thumb, dressing intact) Neuro General: patient alert, patient awake, patient oriented x3 and no focal motor deficits Cognition: normal cognition Speech: speech normal Gait: normal gait Extrem General: normal to inspection, full ROM and no pedal edema Left lower extremity: foot (unable to tell that foot sole is touch, mobiltiy intact ) Psych Appearance: grossly normal Mental Status: mental status grossly normal Speech and Movement: speech and movement normal Attitude: cooperative Objective Last Vital Signs Temp 98.8 F 07/14/21 07:45 Pulse 77 07/14/21 09:56 Resp 18 07/14/21 07:45 BP 145/67 H 07/14/21 07:45 Pulse Ox 90 L 07/14/21 07:45 Laboratory Results - last 24 hr 07/14/21 06:08 Sodium 139 Potassium 4.0 Chloride 106 Carbon Dioxide 27.5 Anion Gap 5.5 BUN 16 Creatinine 0.8 Estimated GFR/1.73 m2 >= 60.00 Glucose 98 Calcium 8.6 Magnesium 2.0
--- NOTE | 2021-07-14 11:46 | PT.INTREAT ---
Date of service: 07/14/21 Time of Service: 11:25 PT Notes Visit Reasons: Syncope, T11 Vertebral Body Fx, Right Ribs Fx Inpatient Physical Therapy Treatment Note [facility] Date: 07/14/2021 PRECAUTIONS:Fall and Activity as tolerated SUBJECTIVE: Attempted to see patient x 2. Complaining that he is very tired and is not able to get any sleep. Stated he was willing to do bed exercises only on second attempt. Indicated he would be willing to sit up on edge of bed for lunch later. I did indicate to patient that he needs to get up and move to avoid increased congestion. He stated he has been exercising his legs while in bed. But insistent that he was not getting out of bed, not even to sit on edge of bed to exercise this morning. OBJECTIVE: PAIN: No complaints of pain offered. BED MOBILITY/TRANSFERS Supine-sit: Refused x2 Sit-stand: Refused x2 Bed-Chair: Refused x2 GAIT Not performed - Refused x2 THEREX: Performed bed exercises only, ankle pumps/ hip flexion/ hip abduction/ SAQs. Able to perform x 15 reps each with short rest between each activity. ASSESSMENT: Tolerated ther exercises fair. PLAN: Continue to encourage activity. Will try to ambulate again tomorrow. TREATMENT CODE/TIME: [id number], 11:25 to 11:40 am
--- NOTE | 2021-07-14 11:58 | PT.INTREAT ---
Date of service: 07/14/21 Time of Service: 08:30 PT Notes Visit Reasons: Syncope, T11 Vertebral Body Fx, Right Ribs Fx Inpatient Physical Therapy Treatment Note [facility] Date: 07/14/2021 PRECAUTIONS: Activty as tolerated. Platform FWW due to weak left UE SUBJECTIVE: Stated he is still not able to use his left hand, but is able to wiggle his index finger today. OBJECTIVE: PAIN: No complaints of pain offered. BED MOBILITY/TRANSFERS Up on commode when I arrived to room Sit-stand: CGA of 2 Stand-sit: CGA of 2 GAIT Assistive Device: FWW with left UE platform, assist required to bring forearm upon/ down off platform Weight bearing: FWB Assist: CGA of 2 with ambulation and CGA of 1 with transfers chair-commode/ commode-chair Distance: 8ft x 1 and 3ft x 2 Static standing with FWW for 5 minutes and 2 minutes with SBA while having buttock region cleaned post x 2 on commode for BM. THEREX: Performed AP, Seated hip flexion, Seated hip abd/add, LAQ x 10 reps each LE and AAROM with left UE for shoulder flexion to 90, shoulder scaption to 90, rows and PROM of wrist, forearm and supination / pronation x 10 reps each. Issued ball to work on trying to squeeze left fingers. Noted slight movement with index finger this am. ASSESSMENT: Tolerated session fair. Will utilize red T-band with LE exercises tomorrow if able to tolerate. PLAN: Work on balance activities tomorrow in sitting and standing. TREATMENT CODE/TIME: [id number] and [id number], 8:30 to 9:00 am
[2021-07-14] MEDS: Furosemide 40 MG/4 ML VIAL IVP (12:05)
[2021-07-14] MEDS: Atorvastatin 10 MG TAB PO (20:04)
[2021-07-14] MEDS: Normal Saline Flush 10 ML SYR IVP (20:05)
[2021-07-14] MEDS: traZODone 100 MG TAB 300 MG PO (21:58)
[2021-07-14] MEDS: Melatonin 3 MG TAB PO (21:58)
[2021-07-14] MEDS: Tamsulosin 0.4 MG CAPCR PO (21:58)
[2021-07-15] VITALS (10 sets, daily range): BP systolic 133–185; BP diastolic 65–78; PULSE 66–92; RESP 8–22; TEMP 36.7–37.2; O2SAT 91–100
[2021-07-15] MEDS: Normal Saline Flush 10 ML SYR IVP ×5 (02:16→17:38)
[2021-07-15] MEDS: MORPHine 4 MG/ML SYR IVP (02:16)
[2021-07-15] MEDS: THIAMINE 500 MG in Normal Saline 100 ML 200 MG IVPB (03:39)
[2021-07-15] MEDS: Albuterol HFA 8 GM 60 PUFF INH IH (04:14)
[2021-07-15] MEDS: Albuterol/Ipratropium 3 ML UPD VIAL UPD ×4 (07:07→20:04)
[2021-07-15] MEDS: Ketorolac 15 MG/ML VIAL IVP ×4 (07:42→20:02)
[2021-07-15] MEDS: Magnesium Gluconate 500 MG TAB PO ×2 (07:43→20:03)
[2021-07-15] MEDS: Midodrine 2.5 MG TAB PO ×3 (07:43→20:03)
[2021-07-15] MEDS: Omeprazole 20 MG CAPCR 40 MG PO (07:43)
[2021-07-15] MEDS: Furosemide 20 MG TAB PO (07:43)
[2021-07-15] MEDS: Acetaminophen 500 MG TAB 1000 MG PO ×2 (07:43→20:03)
[2021-07-15] MEDS: Loratidine 10 MG TAB PO (07:43)
[2021-07-15] MEDS: Aspirin 81 MG CHEW PO (07:43)
[2021-07-15] MEDS: Multivitamin TAB 1 TAB PO (07:43)
[2021-07-15] MEDS: Folic Acid 1 MG TAB PO (07:44)
[2021-07-15] MEDS: Polyethylene Glycol 3350 17 GM PACKET PO ×2 (07:44→20:02)
[2021-07-15] MEDS: Docusate Sodium 100 MG CAP PO ×2 (07:44→20:03)
[2021-07-15] MEDS: Cyanocobalamin 500 MCG TAB 1000 MCG PO (07:44)
[2021-07-15] MEDS: oxyCODONE 5 MG TAB PO (08:27)
[2021-07-15] MEDS: Lidocaine 5% Patch 2 PATCH TP (09:29)
[2021-07-15 10:53] LABS: Source Nasal/Nares
[2021-07-15 11:49] LABS: COVID-19 PCR Negative (Negative)
--- NOTE | 2021-07-15 13:20 | PT.INTREAT ---
Date of service: 07/15/21 Time of Service: 11:45 PT Notes Visit Reasons: Syncope, T11 Vertebral Body Fx, Right Ribs Fx Inpatient Physical Therapy Treatment Note [facility] Date: 07/15/2021 PRECAUTIONS: Fall, back precautions and Activity as tolerated SUBJECTIVE: Stated he has been doing his leg exercises on his own this morning, but willing to ambulate prior to lunch. OBJECTIVE: PAIN: No reports of pain offered. BED MOBILITY/TRANSFERS Supine-sit: I Sit-stand: SBA Stand-sit: SBA GAIT Assistive Device: FWW and O2 supplement at 1L Weight bearing: Full Assist: SBA Distance: 40ft bed to/from door and 5ft commode to bed Required slight assist cleaning himself post use of commode. Vitals: O2 decreased to 84% with ambulation but increased to 94% once seated for short period. ASSESSMENT: Tolerated ambulation well. PLAN: Continue to focus on improved functional mobility. TREATMENT CODE/TIME: [id number], 11:45 to 12:15 (30')
--- NOTE | 2021-07-15 13:29 | PT.INTREAT ---
Date of service: 07/15/21 Time of Service: 09:30 PT Notes Visit Reasons: Syncope, T11 Vertebral Body Fx, Right Ribs Fx
--- NOTE | 2021-07-15 15:05 | PGE_ITS ---
Date of Service Date of service: 07/15/21 Time of Service: 15:05 Assessment and Plan Assessment and plan (1) Syncope: Status: Acute Assessment and plan: In setting of orthostatic hypotension, which is known. Also has B carotid stenosis. He is on flomax, which could be contributing. Orthostasis better since initiation of midodrine. Continue midodrine. Avoid hypotension. Hold antihypertensives. Consider d/cing flomax, though with flomax and midodrine on board, he is doing quite well. (2) Wernicke encephalopathy: Status: Acute Assessment and plan: Finished high dose thiamine. No longer hallucinating. Continue Po thiamine. (3) Thoracic vertebral fracture: Status: Acute Assessment and plan: Traumatic fx of vertebral body T11, stable per CT. Ambulating with PT. Vitamin D level still pending. Not able to fit into a TLSO brace. Continue PT/await OT (not available until next week). Pain management - limit tylenol to 2 grams daily. will need outpatient spine follow up (4) Insomnia: Status: Acute Assessment and plan: Continue trazodone 300 mg Po HS and melatonin. Pharmacy consulted for validation of doses with [facility] and VA will be available on Friday. will add melatonin (5) Intention tremor: Status: Chronic Assessment and plan: As above. 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 Finished high dose thiamine. OT consulted but unavailable until next week. (6) Laceration of right thumb: Status: Acute Assessment and plan: Continue wound care Remove sutures. (7) COPD (chronic obstructive pulmonary disease): Status: Chronic Assessment and plan: Not in acute exacerbation. Continue home inhalers. Encourage pulmonary toilet. Current oxygen requirement is more c/w fluid overload rather than COPD exacerbation. Will receive another dose of IV furosemide today. (8) Peripheral neuropathy: Status: Chronic Assessment and plan: stable and at baseline Continue B12 repletion. Consider gabapentin. (9) Hypertension: Status: Chronic Assessment and plan: Hold lisinopril - I am inclined not to restart antihypertensives given h/o B carotid stenosis, orthostasis, syncope. (10) Vertigo: Assessment and plan: Chronic, may be related to cerebellar dysfunction of Wernicke's. Sx described today are more c/w orthostasis than with vertigo. I am not able to definitively say whether the patient has nystagmus because he has difficulty following my finger on EOM exam. on meclizine. Continue working with PT. (11) DVT prophylaxis: Status: Acute Assessment and plan: TEDs. AVoid chemical DVT ppx due to a large scalp hematoma. (12) Discharge planning issues: Status: Acute Assessment and plan: SNF anticipated on D/c. [facility]. DNR/DNI Subjective Subjective Interval history since last seen: Mr Pratt continues to report dizziness - this is primarily when first sitting up after sleeping in bed. He says he was a little dizzy this morning but then it stopped. He feels well overall. He tells me that he is not in pain, denies shortness of breath, n/v/abdominal pain. Back pain is well controlled. He told me he has an outpatient follow up with neurology (he is not sure why), that he has been following up with ENT and that he is aware that he has carotid stenosis. Exam Narrative Exam Narrative: General: Pleasant elderly male, A&Ox3, BUE tremor is mild, no dyspnea/tachypnea/cyanosis on 1L of O2 by NC HEENT: EOMI, MMM, L sided evolving scalp/pentecostalism hematoma Heart: RRR, no m/r/g Lungs: CTAB Abdomen: soft, mildly distended, nontender Extremities: no edema BLEs, wearing TEDs. Objective Last Vital Signs Temp 36.7 C 07/15/21 08:10 Pulse 86 07/15/21 08:10 Resp 16 07/15/21 11:16 BP 162/75 H 07/15/21 08:10 Pulse Ox 91 L 07/15/21 08:10 Laboratory Results - last 24 hr 07/15/21 10:30 COVID-19 Source Nasal/Nares SARS-CoV-2 (PCR) Negative
[2021-07-15] MEDS: Furosemide 20 MG/2 ML VIAL IVP (17:38)
[2021-07-15] MEDS: Thiamine 100 MG TAB PO (17:38)
[2021-07-15] MEDS: Atorvastatin 10 MG TAB PO (20:03)
[2021-07-15] MEDS: Tamsulosin 0.4 MG CAPCR PO (21:39)
[2021-07-15] MEDS: traZODone 100 MG TAB 300 MG PO (21:39)
[2021-07-15] MEDS: Melatonin 3 MG TAB PO (21:39)
[2021-07-15] MEDS: Lidocaine Patch Removal 2 EACH TD (21:54)
[2021-07-16] VITALS (12 sets, daily range): BP systolic 128–165; BP diastolic 63–83; PULSE 69–86; RESP 1–24; TEMP 36.4–37.1; O2SAT 93–99
[2021-07-16] MEDS: oxyCODONE 5 MG TAB PO ×2 (01:00→21:57)
[2021-07-16 06:06] LABS: Vitamin D 25 Total 29.7 ng/mL (30-100)
--- NOTE | 2021-07-16 07:25 | OTIE_ITS ---
Occupational Therapy Notes Inpatient Occupational Therapy Evaluation Date: 07/17/20 Referring Doctor: Tyler Earl MD OT Orders: Non Urgent Precautions: Fall, standard, DNR/DNI PATIENT PROFILE/ADMITTING DIAGNOSIS: Pt is a 81 year old male who was admitted to Med Surg for a dx of acute COPD, pneumonia, wernike encephalopathy, insomia, intention tremor, hallucinations, COPD exacerbation, HTN, syncope, pain, abdominal bloating, fx rib of (L) side, laceration of (R) Thumb, thoracic vertebral fx, peripheral neuropathy, peripheral vertigo of (B) ears, srenosis of (R) internal carotid artery, H/O alchol abuse, hypomagnesemia, hyponatremia, pancytopenia. Past Medical History: All Active Problems?(Updated 07/08/21 @ 06:38 by Tyler Earl) Syncope (Acute) Abdominal bloating (Chronic) Fracture of rib of left side (Chronic) Laceration of right thumb (Acute) Thoracic vertebral fracture (Acute) Peripheral neuropathy (Chronic) Peripheral vertigo of both ears (Acute) Stenosis of right internal carotid artery (Acute) Discharge planning issues (Acute) DVT prophylaxis (Acute) Dizziness (Acute) Chest pain (Acute) Alcohol abuse (Chronic) Community acquired pneumonia (Acute) COPD (chronic obstructive pulmonary disease) (Chronic) Hyponatremia (Acute) Pancytopenia (Acute) Medical History? Alcohol abuse GERD (gastroesophageal reflux disease) HTN (hypertension) Hx of hyperlipidemia Surgical History? Fracture of right hip pinningHx of cholecystectomy Social History/Home Situation: Tyler [facility]. He notes that he has no family support in the area. Tyler uses a 4ww in his apartment,electric wheelchair and grab bars in his bathroom. He is (I) with ADLs. He receives meals on wheels. SUBJECTIVE: Pt states that he is not happy to be sitting in his chair but that he is going to, to get better. OBJECTIVE: General Observation: Pleasant, agreeable to OT session. Mental Status: A&Ox3 ROM: RUE AROM WFL L UE AROM WFL STRENGTH: RUE 4+/5 throughout LUE 4-/5 throughout FUNCTIONAL MOBILITY/ADLS: EATING Sitting in chair (I) with hand to mouth and use of utensils. no issues with chewing or swallowing. Tremor in (B) UE, OT worked with pt to decrease essential tremor to (B) UE with mod vc throughout. BALANCE: Static sitting Normal Dynamic Sitting Normal SPECIAL TESTS: Daily Activity Limitations Standardized Measure [facility] AM -PAC ?6 clicks? Daily Activity Inpatient Short Form: Raw score: 16 Standardized score: 35.96 CMS score: 53.32% INFORMED CONSENT/EDUCATION: Pt instructed in purpose of OT Consult and plan of care. ASSESSMENT: Patient is a 81-year-old male referred to occupational therapy services with diagnosis of acute COPD, pneumonia, wernike encephalopathy, insomia, intention tremor, hallucinations, COPD exacerbation, HTN, syncope, pain, abdominal bloating, fx rib of (L) side, laceration of (R) Thumb, thoracic vertebral fx, peripheral neuropathy, peripheral vertigo of (B) ears, srenosis of (R) internal carotid artery, H/O alchol abuse, hypomagnesemia, hyponatremia, pancytopenia. Patient presents with clinical signs and symptoms consistent with dx, as demonstrated by the following impairment level findings/functional limitations: Impairments in ADL/IADL and leisure activities, decreased functional activity tolerance, essential tremor of (B) UE, decreased gross and fine motor control, decreased strength. AMPAC score 16 Patient is assessed as a Moderate 03560 complexity based on the following: History: see above Examination: see functional limitations as noted above Presentation: evolving Decision Making: AMPAC score 16 GOALS Goals x1 week 1. Transfers with min (A) 2. Dressing sitting in chair (I) UE and min (A) LE 3. Bathing sitting in chair (I) UE min (A) LE 4. Toileting on toilet (I) 5. Eating (I) PLAN OF CARE/TREATMENT PLAN: 1x/day, 5 days/ week x 1week Initiate Occupational Therapy Services for bathing, dressing, grooming, toileting, eating, transfer training. DISCHARGE RECOMMENDATIONS OT recommends that pt go to SNF for continued rehabilitation based on this patient's current level of function. TREATMENT TIME/MINUTES/CODES 34297, [id number], 20 minutes (08:40) [facility]
[2021-07-16] MEDS: Albuterol/Ipratropium 3 ML UPD VIAL UPD ×4 (08:13→20:18)
[2021-07-16] MEDS: Omeprazole 20 MG CAPCR 40 MG PO (08:29)
[2021-07-16] MEDS: Thiamine 100 MG TAB PO (08:29)
[2021-07-16] MEDS: Folic Acid 1 MG TAB PO (08:29)
[2021-07-16] MEDS: Aspirin 81 MG CHEW PO (08:29)
[2021-07-16] MEDS: Docusate Sodium 100 MG CAP PO ×2 (08:29→20:14)
[2021-07-16] MEDS: Cyanocobalamin 500 MCG TAB 1000 MCG PO (08:29)
[2021-07-16] MEDS: Furosemide 20 MG TAB PO (08:29)
[2021-07-16] MEDS: Acetaminophen 500 MG TAB 1000 MG PO ×2 (08:29→20:14)
[2021-07-16] MEDS: Loratidine 10 MG TAB PO (08:29)
[2021-07-16] MEDS: Ketorolac 15 MG/ML VIAL IVP ×2 (08:29→11:54)
[2021-07-16] MEDS: Multivitamin TAB 1 TAB PO (08:29)
[2021-07-16] MEDS: Magnesium Gluconate 500 MG TAB PO ×2 (08:30→20:13)
[2021-07-16] MEDS: Normal Saline Flush 10 ML SYR IVP ×3 (08:30→23:09)
[2021-07-16] MEDS: Polyethylene Glycol 3350 17 GM PACKET PO ×2 (08:30→20:14)
[2021-07-16] MEDS: Midodrine 2.5 MG TAB PO ×3 (08:30→19:54)
[2021-07-16] MEDS: Lidocaine 5% Patch 2 PATCH TP (09:24)
--- NOTE | 2021-07-16 15:27 | W.PM.PROGNOT ---
Date of Service Date of service: 07/16/21 Time of Service: 15:27 Assessment and Plan Assessment and plan (1) Acute exacerbation of chronic obstructive pulmonary disease (COPD): Status: Acute Assessment and plan: Due to apparent bilateral pneumonia. Because the patient gets easily fluid overloaded and is not overall very ill, will trial putting him on augmentin and prednisone. Continue scheduled and prn bronchodilators. Wean O2 as tolerated. [facility]. (2) Pneumonia: Status: Acute Assessment and plan: As above. Start augmentin. I ordered MRSA nares. (3) Syncope: Status: Acute Assessment and plan: In setting of orthostatic hypotension, which is known. Also has B carotid stenosis. He is on flomax, which could be contributing. Orthostasis better since initiation of midodrine - at least, he is less symptomatic. Continue midodrine. Avoid hypotension. Hold antihypertensives. Consider d/cing flomax, though with flomax and midodrine on board, he is doing quite well. (4) Wernicke encephalopathy: Status: Acute Assessment and plan: Finished high dose thiamine. No longer hallucinating. Continue Po thiamine. (5) Thoracic vertebral fracture: Status: Acute Assessment and plan: Traumatic fx of vertebral body T11, stable per CT. Ambulating with PT. Vitamin D level low - replete Not able to fit into a TLSO brace. Continue PT/await OT (not available until next week). Pain management - limit tylenol to 2 grams daily. will need outpatient spine follow up (6) Insomnia: Status: Acute Assessment and plan: Continue trazodone 300 mg Po HS and melatonin. Pharmacy consulted for [facility] of doses with [facility] - I am not sure if we were able to obtain this list. I have not seen it yet. Continue melatonin (7) Intention tremor: Status: Chronic Assessment and plan: As above. 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 Finished high dose thiamine. Continue regular dose thiamine. Await OT eval. (8) Laceration of right thumb: Status: Acute Assessment and plan: Sutures removed. (9) Peripheral neuropathy: Status: Chronic Assessment and plan: stable and at baseline Continue B12 repletion. Consider gabapentin. (10) Hypertension: Status: Chronic Assessment and plan: Hold lisinopril - I am inclined not to restart antihypertensives given h/o B carotid stenosis, orthostasis, syncope. (11) Vertigo: Assessment and plan: Chronic, may be related to cerebellar dysfunction of Wernicke's. Sx described today are more c/w orthostasis than with vertigo. I am not able to definitively say whether the patient has nystagmus because he has difficulty following my finger on EOM exam. on meclizine. Continue working with PT. (12) DVT prophylaxis: Status: Acute Assessment and plan: TEDs. AVoid chemical DVT ppx due to a large scalp hematoma. (13) Discharge planning issues: Status: Acute Assessment and plan: SNF anticipated on D[facility]c [facility] Patient's COPD exacerbation/pneumonia are clinically mild and should not prevent discharge tomorrow. DNR/DNI Subjective Subjective Interval history since last seen: Mr Pratt was noted to be wheezing today. He desaturated to 85% on room air while working with PT during the wheezing episode. He required 2L of O2 to recover. The patient reminded me that he has asbestosis. He does not feel wheezy or short of breath at the time of my visit with him. He denies dizziness, chest pain, shortness of breath, nausea, cough. He is undergoing a voiding trial today with plans to [facility]. Exam Narrative Exam Narrative: General: Pleasant elderly male, A&Ox3, BUE tremor is mild, no dyspnea/tachypnea/cyanosis on 2L of O2 by NC HEENT: EOMI, MMM, L sided evolving scalp/uatsdin hematoma Heart: RRR, no m/r/g Lungs: mild expiratory wheezing B Abdomen: soft, mildly distended, nontender Extremities: no edema BLEs, wearing TEDs. Objective Last Vital Signs Temp 36.4 C L 07/16/21 11:45 Pulse 79 07/16/21 14:20 Resp 18 07/16/21 13:16 BP 128/68 07/16/21 14:20 Pulse Ox 99 07/16/21 13:16 Laboratory Results - last 24 hr 07/13/21 06:05 25-OH Vitamin D Total 29.7 L Objective Narrative Objective Narrative: CXR: Increase infiltrate seen in the lower lobes, right greater than left.?
--- NOTE | 2021-07-16 16:06 | DI.RAD_ITS ---
Exam(s) XR PORTABLE CHEST AP EXAM: XR PORTABLE CHEST AP CLINICAL HISTORY: new wheezing TECHNIQUE: 2D digital imaging was performed of the chest. One image was obtained. An AP view was ob tained. COMPARISON: CR XR CHEST 2V PA LATERAL from 06/21/2021 CR XR PORTABLE CHEST AP from 07/10/2021 FINDINGS: MEDIASTINUM: Normal. HEART: Normal. PULMONARY VASCULATURE: Normal. LUNGS: There are infiltrates seen in the lower lobes, right greater than left. PLEURAL SPACE: No pleural effusion or pneumothorax. Bilateral pleural plaque disease is noted. BONE:Within normal limits for the patient's age. OTHER FINDINGS:Normal. IMPRESSION: Increase infiltrate seen in the lower lobes, right greater than left. DATA REPOSITORY: RADIATION DOSE DELIVERED:
--- NOTE | 2021-07-16 16:17 | PDOC.CMPRO ---
- If Service Date Differs Date of service: 07/16/21 Time of Service: 16:17 Care Management Progress Note S/O: Tyler was lying in bed when CM met with him. He was offered and accepted a bed at [facility]. Anticipate he will discharge tomorrow if he passes his voiding trial. He will transport via facility van when ready. CM will contact Ira in the morning to discuss discharge. A: Tyler is a 81 year old male admitted to [facility] on 07/07/21 for Syncope, T11 Vertebral fx, Right rib fx. P: Anticipate Tyler will discharge to SNF for continue rehab vs. home with [facility] RN, PT, OT, IT RISK ADVISOR. [facility]. Tyler is connected to [facility], Carmelo is his digital community manager. CM will notify Carmelo prior to discharge. CM continues to support discharge planning needs.
--- NOTE | 2021-07-16 17:23 | PT.INTREAT ---
Date of service: 07/16/21 Time of Service: 07:54 PT Notes Visit Reasons: Syncope, T11 Vertebral Body Fx, Right Ribs Fx Inpatient Physical Therapy Treatment Note [facility] Date: 07/16/2021 PRECAUTIONS: Back precautions, Fall, Activity as tolerated SUBJECTIVE: Tyler is agreeable to participating in PT. He reports that he does not do much at home, that he is in bed or his recliner most of the day. OBJECTIVE: Discussed the importance of participating in PT for continued mobility progression. Discussed benefits to health and overall wellbeing with remaining active and mobile. PAIN: Patient reports no pain with gait training nor transfers BED MOBILITY/TRANSFERS Supine-sit: I Sit-stand: S Stand-sit: S GAIT Assistive Device: FWW Weight bearing: Full Assist: SBA Distance: 25' x2 Deviation: Significant SOB, slow pacing, seated rest VITALS: Session completed in collaboration with RT. SaO2: 97% on RA - 1L O2 at rest and 86-94% on RA - 1L O2 via NC with gait training ASSESSMENT: Patient tolerated session with c/o significantly increased SOB with gait training which he reports is the limiting factor. He did not c/o dizziness or back pain today. PLAN: Continue with global strengthening and general conditioning for improved mobility and activity tolerance. TREATMENT CODE/TIME: 22 minutes; 60751 (07:54)
--- NOTE | 2021-07-16 17:30 | INDS_ITS ---
Date of service: 07/19/21 PT Notes Visit Reasons: Syncope, T11 Vertebral Body Fx, Right Ribs Fx Physical Therapy Inpatient Discharge Summary Date: Dates of Service: 07/09/2021 through 07/16/2021 Referring Doctor:? Mikayla Weston NP PT Orders: PT CONSULT: Eval/Treat Precautions:? Back precautions on.? Fall. Patient Profile/Admitting Diagnosis:? Tyler is a 81-year-old gentleman with history of pancytopenia, hyponatremia, hypomagnesemia, COPD, community-acquired pneumonia, who presented at the ED on 07/07/2021 due to a fall resulting from a sycopal episode.? ? Patient is diagnosed with upper T11 vertebral body fracture, syncope,? of right thumb, COPD exacerbation, fracture of left ribs, and abdominal bloating. 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 Alcohol abuse GERD (gastroesophageal reflux disease) HTN (hypertension) Hx of hyperlipidemia Surgical History? Fracture of right hip pinningHx of cholecystectomy Social History/Home Situation: Lives alone on the second floor of an apartment building in [facility] with an elevator and an elevator to enter.? Patient is modified independent using his 4 wheeled walker indoors and uses his motorized wheelchair for outdoor ambulation. He has a lady who comes in once or twice a week to perform house chores and laundry. Equipment Owned/DME: Motorized wheelchair, 4WW Subjective:?Tyler is agreeable to PT session Objective:? General Observation: Kingsley catheter in place.? Telemetry monitoring in place.? Bruising in right upper extremity and L side of trunk.? Oxygen supplementation at 2 L/min via NC. Mental Status: Alert and oriented x3 Pain: Denies ROM: Right Upper Extremity: ? Shoulder Flexion WFL. Shoulder abduction WFL. Elbow flexion WFL. Wrist flexion WFL. Functional opening and closing of hand WFL. Left Upper Extremity:? Shoulder Flexion WFL. Shoulder abduction WFL. Elbow flexion WFL. Wrist flexion WFL. Functional opening and closing of hand WFL.? Pain at end range of L shoulder ROM. Right Lower Extremity: Hip flexion WFL. Hip abduction WFL. Knee flexion WFL. Ankle dorsiflexion WFL. Ankle plantarflexion WFL. Left Lower Extremity: Hip flexion WFL. Hip abduction WFL. Knee flexion WFL. Ankle dorsiflexion WFL. Ankle plantarflexion WFL. Strength: Right Upper Extremity: Shoulder flexors 4-/5. Shoulder abductors 4-/5. Elbow flexors 4-/5. Elbow extensors 4-/5. Reservations Specialist strong. Left Upper Extremity: Shoulder flexors 4-/5. Shoulder abductors 4-/5. Elbow flexors 4-/5. Elbow extensors 4-/5. Reservations Specialist strong. Right Lower Extremity: Hip flexors 4-/5. Hip abductors 4-/5. Knee flexors 4-/5. Knee extensors 4-/5. Ankle dorsiflexors 4-/5. Ankle plantarflexors 4-/5. Left Lower Extremity: Hip flexors 4-/5. Hip abductors 4-/5. Knee flexors 4-/5. Knee extensors 4-/5. Ankle dorsiflexors 4-/5. Ankle plantarflexors 4-/5. Sensation:? Diminished sensation bilateral lower extremities secondary to peripheral neuropathy.? No pain radiation to lower extremities. Bed Mobility/Transfers Rolling independent Supine to sit supervision Sit to stand supervision Gait:? UP to 25 feet using FWW with decreased ana and mild shortness of breath needing 1 L per minute of oxygen supplementation. Balance:? Static Sitting: Normal Dynamic Sitting: Good Static Standing: Fair Dynamic Standing: Poor Assessment:?? Per Dr. Cartagena,? may mobilize without back brace as he is able to tolerate.? Mobility limited? by pain complaint and severe dizziness, generalized weakness, and orthostatic hypotension.? Tyler is a 81-year-old gentleman with history of pancytopenia, hyponatremia, hypomagnesemia, COPD, community-acquired pneumonia, who presented at the ED on 07/07/2021 due to a fall resulting from a sycopal episode.? ? Patient is diagnosed with upper T11 vertebral body fracture, syncope,? of right thumb, COPD exacerbation, fracture of left ribs, and abdominal bloating. Premedicate for pain for PT sessions. Patient presents with clinical signs and symptoms consistent with current/admitting diagnoses that have resulted to mobility limitations, gait instability, generalized weakness, and overall ADL decline as demonstrated by the following impairment level findings: 1.? Decreased strength to B LE major muscle groups 2.? Impaired sitting/standing balance 3.? Impaired activity tolerance 4.? Pain at rest and with movement 5.? Shortness of breath 6.? Swelling 7.? Dizziness Impairments are contributing to the following functional limitations: 1.? Decline in bed mobility skills 2.? Decline in transfer skills 3.? Difficulty with ambulation without assistive device and physical assistance 4.? Increased completion time for mobility ADL performance 5.? Increased risk for falls 6.? Difficulty with managing steps alone safely Goals: Goals X1 week 1. Supine-Sit independent NOT MET 2. Sit-Supine independent NOT MET 3. Sit-Stand independent NOT MET 4. Stand-Sit independent NOT MET 5. Bed-Chair supervision with 4WW NOT MET 6. Chair-Bed supervision with 4WW NOT MET 7. Gait supervision with 4WW NOT MET DISCHARGE RECOMMENDATIONS: [] ? Home with no services [] [] ? Home with services [specify] [] ? Home with outpatient PT [] [X] ? SNF for continued rehabilitation.? Patient will benefit from home health PT services in order to progress mobility level using least restrictive assistive ambulatory device, assess home safety, identify additional equipment needs, and establish a functional maintenance program that will increase ability of patient to remain at home. [] ? [facility] [] [] ? SNF versus LTC based on ability to participate and progress [] TREATMENT CODE/TIME: 20704 x 2 units. Thank you for the opportunity to participate in the care of this patient. Cat Salmeron PT, DPT, CLT [facility] [place], [place]
[2021-07-16] MEDS: Amoxicillin 875/Clav. 125 TAB PO (18:35)
[2021-07-16] MEDS: predniSONE 20 MG TAB 40 MG PO (18:35)
[2021-07-16] MEDS: Atorvastatin 10 MG TAB PO (20:14)
[2021-07-16] MEDS: Melatonin 3 MG TAB PO (21:51)
[2021-07-16] MEDS: traZODone 100 MG TAB 300 MG PO (21:51)
[2021-07-16] MEDS: Tamsulosin 0.4 MG CAPCR PO (21:51)
[2021-07-16] MEDS: Lidocaine Patch Removal 2 EACH TD (21:52)
[2021-07-16] MEDS: MORPHine 4 MG/ML SYR IVP (23:08)
[2021-07-17 03:30] VITALS: BP 166/78; PULSE 81; RESP 18; TEMP 36.9; O2SAT 95
[2021-07-17 08:02] VITALS: PULSE 80; RESP 18; RESP 7; O2SAT 93
[2021-07-17] MEDS: Albuterol/Ipratropium 3 ML UPD VIAL UPD (08:02)
[2021-07-17 08:03] VITALS: O2SAT 93
[2021-07-17] MEDS: Polyethylene Glycol 3350 17 GM PACKET PO (08:22)
[2021-07-17] MEDS: Magnesium Gluconate 500 MG TAB PO (08:23)
[2021-07-17] MEDS: Omeprazole 20 MG CAPCR 40 MG PO (08:23)
[2021-07-17] MEDS: Amoxicillin 875/Clav. 125 TAB PO (08:23)
[2021-07-17] MEDS: Midodrine 2.5 MG TAB PO (08:23)
[2021-07-17] MEDS: Acetaminophen 500 MG TAB 1000 MG PO (08:23)
[2021-07-17] MEDS: Aspirin 81 MG CHEW PO (08:24)
[2021-07-17] MEDS: Cholecalciferol (Vitamin D3) 1,000 UNIT TAB 2000 UNITS PO (08:25)
[2021-07-17] MEDS: Loratidine 10 MG TAB PO (08:25)
[2021-07-17] MEDS: Cyanocobalamin 500 MCG TAB 1000 MCG PO (08:25)
[2021-07-17] MEDS: predniSONE 20 MG TAB 40 MG PO (08:25)
[2021-07-17] MEDS: Multivitamin TAB 1 TAB PO (08:25)
[2021-07-17] MEDS: Furosemide 20 MG TAB PO (08:26)
[2021-07-17] MEDS: Folic Acid 1 MG TAB PO (08:26)
[2021-07-17] MEDS: Docusate Sodium 100 MG CAP PO (08:26)
[2021-07-17] MEDS: Thiamine 100 MG TAB PO (08:26)
[2021-07-17 08:41] VITALS: BP 131/76; PULSE 73; RESP 18; TEMP 36.8; O2SAT 97
--- NOTE | 2021-07-17 08:47 | OT.INDS ---
Occupational Therapy Notes Occupational Therapy Inpatient Discharge Summary Date: 07/17/21 Dates of Service: 07/16/21-07/17/21 Referring Doctor: Tyler Earl MD OT Orders: Non Urgent Precautions: Fall, standard, DNR/DNI PATIENT PROFILE/ADMITTING DIAGNOSIS: Pt is a 81 year old male who was admitted to Med Surg for a dx of acute COPD, pneumonia, wernike encephalopathy, insomia, intention tremor, hallucinations, COPD exacerbation, HTN, syncope, pain, abdominal bloating, fx rib of (L) side, laceration of (R) Thumb, thoracic vertebral fx, peripheral neuropathy, peripheral vertigo of (B) ears, srenosis of (R) internal carotid artery, H/O alchol abuse, hypomagnesemia, hyponatremia, pancytopenia. Past Medical History: All Active Problems?(Updated 07/08/21 @ 06:38 by Tyler Earl) Syncope (Acute) Abdominal bloating (Chronic) Fracture of rib of left side (Chronic) Laceration of right thumb (Acute) Thoracic vertebral fracture (Acute) Peripheral neuropathy (Chronic) Peripheral vertigo of both ears (Acute) Stenosis of right internal carotid artery (Acute) Discharge planning issues (Acute) DVT prophylaxis (Acute) Dizziness (Acute) Chest pain (Acute) Alcohol abuse (Chronic) Community acquired pneumonia (Acute) COPD (chronic obstructive pulmonary disease) (Chronic) Hyponatremia (Acute) Pancytopenia (Acute) Medical History? Alcohol abuse GERD (gastroesophageal reflux disease) HTN (hypertension) Hx of hyperlipidemia Surgical History? Fracture of right hip pinningHx of cholecystectomy Social History/Home Situation: [place] [facility] [place] [facility]. He notes that he has no family support in the area. Tyler uses a 4ww in his apartment,electric wheelchair and grab bars in his bathroom. He is (I) with ADLs. He receives meals on wheels. SUBJECTIVE:??Pt states that he is doing well and being discharged today. OBJECTIVE:? STRENGTH: RUE 4+/5 throughout LUE 4-/5 throughout FUNCTIONAL MOBILITY/ADLS:? EATING Sitting in chair (I) with hand to mouth and use of utensils. no issues with chewing or swallowing. Tremor in (B) UE, OT worked with pt to decrease essential tremor to (B) UE with mod vc throughout with good achievement in decline of tremor. Pt was able to decrease tremor for better control. LE Dressing- OT worked with pt on LE dressing he was able to (I) don and doff his (B) socks with ideal techniques throughout. BALANCE: ? Static sitting Normal Dynamic Sitting Normal ASSESSMENT:?? Patient is a 81-year-old male referred to occupational therapy services with diagnosis of acute COPD, pneumonia, wernike encephalopathy, insomia, intention tremor, hallucinations, COPD exacerbation, HTN, syncope, pain, abdominal bloating, fx rib of (L) side, laceration of (R) Thumb, thoracic vertebral fx, peripheral neuropathy, peripheral vertigo of (B) ears, srenosis of (R) internal carotid artery, H/O alchol abuse, hypomagnesemia, hyponatremia, pancytopenia.Pt was seen for 2 skilled OT sessions, he was more receptive to LE dressing today. He states that he is leaving today to [facility]. GOALS 1.? Transfers with min (A) 2.? Dressing sitting in chair (I) UE and min (A) LE 3.? Bathing sitting in chair (I) UE min (A) LE 4.? Toileting on toilet (I) 5.? Eating (I) PLAN OF CARE/TREATMENT PLAN: Pt was discharged to SNF and medically cleared per MD. DISCHARGE RECOMMENDATIONS OT recommends that pt go to SNF for continued rehabilitation based on this patient's current level of function. TREATMENT TIME/MINUTES/CODES 23337, 15 minutes (08:00) [facility]
[2021-07-17] MEDS: Lidocaine 5% Patch 2 PATCH TP (09:51)
[2021-07-17] MEDS: oxyCODONE 5 MG TAB PO (09:51)
--- NOTE | 2021-07-17 10:33 | DSE_ITS ---
Date of service: 07/17/21 Time of Service: 11:02 DS: Diagnosis Discharge Diagnosis (1) Acute exacerbation of chronic obstructive pulmonary disease (COPD): Status: Acute (2) Pneumonia: Status: Acute (3) Syncope: Status: Acute (4) Wernicke encephalopathy: Status: Acute (5) Thoracic vertebral fracture: Status: Acute (6) Insomnia: Status: Acute (7) Intention tremor: Status: Chronic (8) Laceration of right thumb: Status: Acute (9) Peripheral neuropathy: Status: Chronic (10) Hypertension: Status: Chronic (11) Vertigo: (12) DVT prophylaxis: Status: Acute (13) Discharge planning issues: Status: Acute Discharge Plan Disposition Patient Disposition: SNF (LEVEL 1) [facility] Condition: Serious Discharge Details Reason For Visit: Syncope, T11 Vertebral Body Fx, Right Ribs Fx Admit Date/Time: 07/07/21 23:48 Admit Provider: Tyler Earl Attending Provider: Tyler Earl Primary Care Provider: Brad Morrow Hospital Course Hospital Course: This is a 81-year-old male patient who is a [facility] who was cooking spaghetti sauce in his kitchen the night of admission when things suddenly went black and he awakened on the floor.? He did injure his back and right side during his fall but was not incontinent of urine or stool and did not bite his tongue.? He was fully awake and oriented after the event.? He denies any chest pain or shortness of breath and had no dizziness or presyncopal symptoms.? The event was abrupt and he has had no similar events in the past. The patient lives in senior apartments and has a small kitchen and is assuming that he fell forward hitting the left side of his forehead where he has a slight swelling and pain and then fell backward injuring his right thumb which required laceration repair and injury to his right ribs which he did not realize he had fractured when I visited him.? His back pain is the predominant presently.? After his fall, he crawled on the floor to the the door of his apartment and opened it yelling in the hallway with a neighbor calling EMS.? In the ED the patient was found to have a rigid T11 vertebral body fracture which [facility] orthopedic consultation recommended complete bedrest with MRI of the spine for further evaluation for instability.? Patient was also found to have old left 8 through 10 rib fractures which were healing with callus formation.? Patient's back pain was responding to IV morphine and oxycodone.? Patient will not be able to ambulate until MRI is performed.? He will be admitted for complete bedrest and observation until MRI can be obtained.? He was open to being transferred to the [place] if they would accept him while awaiting further imaging.? The [place] was not reachable through the ED the night of admission and he was never transferred / remained at [facility] for the duration of his hospitalization. Cardiac monitoring and trending of troponins were negative. The patient denied Etoh withdrawal but did report chronic vertigo, tremor, ataxia which is consistent with Wernickes. PT worked with patient and recommended global strengthening and general conditioning for improved mobility and activity tolerance. He did have some mild increase in supplemental O2 requirement the day prior to admission. CXR showed an increased infiltrates seen in the lower lobes, right greater than left. Augmentin and prednisone initiated. On the day of discharge he felt better and was requiring only 1L of supplemental O2. Discharged to SNF / [facility] Re[facility] for further rehabilitation efforts. Home Meds and New Rx's Prescriptions: New Acetaminophen [Tylenol] 1,000 mg PO BID Qty: 0 0RF polyethylene glycol 3350 17 gram Powder In Packet 17 g PO BID Qty: 0 0RF prednisone 20 mg Tablet 40 mg PO DAILY Qty: 0 0RF midodrine 5 mg Tablet 2.5 mg PO TID Qty: 0 0RF melatonin 3 mg Tablet 3 mg PO HS Qty: 0 0RF magnesium hydroxide [Milk of Magnesia] 400 mg/5 mL Suspension 30 ml PO DAILY PRN PRNQty: 0 0RF lidocaine 5 % Adhesive Patch,Medicated 2 patch topical Q24H Qty: 0 0RF docusate sodium [Colace] 100 mg Capsule 100 mg PO BID Qty: 0 0RF furosemide 20 mg Tablet 20 mg PO DAILY Qty: 0 0RF amoxicillin-pot clavulanate 875-125 mg Tablet 1 tab PO BID Qty: 0 0RF oxycodone 5 mg Tablet 5 mg PO Q4H PRN PRNQty: 15 0RF cholecalciferol (vitamin D3) 25 mcg (1,000 unit) Tablet 2,000 units PO DAILY Qty: 0 0RF thiamine mononitrate (vit B1) [Vitamin B-1 (mononitrate)] 100 mg Tablet 100 mg PO DAILY Qty: 0 0RF Inhaler, Assist Devices [Pocket Chamber] 1 ea miscellaneous DIRECTED Qty: 0 0RF Continued amlodipine 10 MG tablet 10 mg PO DAILY 0RF omeprazole 20 MG capsule,delayed release(DR/EC) 40 mg PO DAILY 0RF Label Comments: Pt. states that he doesn't take this medication. folic acid 1 MG tablet 1 mg PO DAILY 0RF Label Comments: Pt states that he does not take this medication albuterol sulfate 90 mcg/actuation Hfa Aerosol Inhaler 2 puff INHALATION QID PRN0RF loratadine 10 mg Tablet 10 mg PO DAILY 0RF atorvastatin 10 MG tablet 10 mg PO DAILY 0RF aspirin [Children's Aspirin] 81 MG tablet,chewable 81 mg PO DAILY 0RF vitamin H69-oubcl acid 1 EACH tablet, sublingual 1 tab PO DAILY 0RF multivitamin [Daily Multi-Vitamin] 1 EACH tablet 1 tab PO DAILY 0RF nitroglycerin [Nitrostat] 0.4 MG tablet, sublingual 0.4 mg Sublingual Q15MIN PRNQty: 21 0RF Rx Instructions: for chest pain magnesium oxide 500 mg tablet 500 mg PO BID Qty: 60 0RF potassium chloride 20 mEq tablet extended release 20 meq PO DAILY Qty: 30 0RF tamsulosin 0.4 mg Capsule 0.4 mg PO HS Qty: 0 0RF trazodone 100 MG tablet 200 mg PO HS Qty: 0 0RF Label Comments: Pt. is aware that he took too large a dose (300 mg) and that he needs to take 200 mg. lisinopril 10 MG tablet 10 mg PO QPM Qty: 0 0RF meclizine 25 mg tablet 25 mg PO TID PRNQty: 30 0RF Discontinued furosemide 20 mg tablet 20 mg PO Q OTHER DAY Qty: 0 0RF Label Comments: TAKE 1 TABLET BY MOUTH ONCE DAILY Discharge Instructions Activity:: Activity as Tolerated Equipment/Supplies:: No Equipment Needed Diet:: Heart Healthy Discharge Orders Discharge Orders: Discharge Order (Routine); Ordered 07/17/21 Ordered By: Denny Mehta Discharge Data Discharge Date/Time-TO BE ENTERED AT DEPARTURE: 07/17/21 11:30 DS: Summary Time Spent with Patient providing and/or coordinating discharge services: Greater than 30 minutes Status at Discharge Functional status at discharge: uses cane/walker Overall status at discharge: patient is progressing back to baseline Mental Status: mental status grossly normal Speech and Movement: speech and movement normal Mood: congruent mood Affect: normal affect Exam Narrative Exam Narrative: General: Pleasant elderly male, A&Ox3, BUE tremor is mild, no dyspnea/tachypnea/cyanosis on 2L of O2 by NC HEENT: EOMI, MMM, L sided evolving scalp/confucianism hematoma Heart: RRR, no m/r/g Lungs: mild expiratory wheezing B Abdomen: soft, mildly distended, nontender Extremities: no edema BLEs, wearing TEDs. Const General: cooperative, comfortable, no acute distress, frail appearing, ill appearing chronically and other (resting tremor right hand) Nutritional Appearance: average body habitus and overweight Orientation: alert, awake and oriented x3 HENMT Head: normal to inspection, normocephalic and atraumatic Mouth: moist mucous membranes abnormal (dry) Eyes Alignment and Position: alignment normal Periorbital: periorbital findings normal Eyelids: eyelids normal Conjunctivae: conjunctivae normal Sclera: sclerae normal Pupils: pupil size (2 mm and reactive) bilaterally EOM: EOM intact bilaterally Chest Chest: normal inspection of the chest Resp Effort & Inspection: normal respiratory effort Auscultation: clear to auscultation bilaterally Cardio Rate: regular rate Rhythm: regular rhythm GI Inspection: distended Palpation: soft, not rigid and nontender Percussion: tympanic to percussion Auscultation: hypoactive bowel sounds Skin Rashes: no rashes Trauma: laceration (right thumb, dressing intact) Neuro General: patient alert, patient awake, patient oriented x3 and no focal motor deficits Cognition: normal cognition Speech: speech normal Gait: normal gait Extrem General: normal to inspection, full ROM and no pedal edema Psych Mental Status: mental status grossly normal Speech and Movement: speech and movement normal Mood: congruent mood Affect: normal affect DS: Data Vitals/I&O Vitals and I&O: Vital Signs Temperature 36.8 C 07/17/21 08:41 Temperature Source Tympanic 07/17/21 08:41 Pulse 73 07/17/21 08:41 Pulse Rhythm Regular 07/17/21 07:20 Pulse 82 07/08/21 01:00 Respiratory Rate 18 07/17/21 08:41 Respiratory Effort Non-Labored 07/17/21 07:20 Respiratory Depth Normal 07/17/21 07:20 Respiratory Pattern Normal 07/17/21 07:20 Blood Pressure 131/76 07/17/21 08:41 Blood Pressure Mean 102 07/08/21 00:46 Blood Pressure Position Supine 07/07/21 18:20 Pulse Oximetry 97 07/17/21 08:41 Oxygen Delivery Method Nasal Cannula 07/17/21 08:41 Oxygen Flow Rate 1 07/17/21 08:41 Fraction of Inspired Oxygen (FIO2) 24 07/17/21 08:03 Pain Level 8 07/17/21 09:51 Comment 07/17/21 03:30 Intake & Output 07/16/21 07/16/21 07/17/21 11:59 23:59 11:59 Intake Total 250 / 510 260 / 510 240 / 240 Output Total 1050 / 1775 725 / 1775 1050 / 1050 Balance -800 / -1265 -465 / -1265 -810 / -810 Weight 96.2 kg 96.3 kg Intake: Oral 250 / 510 260 / 510 240 / 240 Output: Urine 1050 / 1775 725 / 1775 1050 / 1050 Other: Urine Color Yellow Yellow Yellow Urine Appearance Cloudy Cloudy Clear Urine Odor Normal Normal Stool Size Smear Stool Characteristics Soft Formed Voiding Methods Urinal Bedside Commode Data Completed and Pending Labs on day of discharge: 07/16/21 21:45 Nose MRSA Screen - Pending Preliminary micro results at discharge 07/16/21 21:45 MRSA Screen - Pending Nose PFSH All Active Problems (Updated 07/16/21 @ 17:40 by Jenny Dowd MD) Acute exacerbation of chronic obstructive pulmonary disease (COPD) (Acute) Pneumonia (Acute) Wernicke encephalopathy (Acute) Insomnia (Acute) Intention tremor (Chronic) COPD exacerbation (Acute) Hypertension (Chronic) Pain (Acute) Syncope (Acute) Abdominal bloating (Chronic) Fracture of rib of left side (Chronic) Laceration of right thumb (Acute) Thoracic vertebral fracture (Acute) Peripheral neuropathy (Chronic) Peripheral vertigo of both ears (Acute) Stenosis of right internal carotid artery (Acute) Discharge planning issues (Acute) DVT prophylaxis (Acute) Dizziness (Acute) Chest pain (Acute) Alcohol abuse (Chronic) Community acquired pneumonia (Acute) COPD (chronic obstructive pulmonary disease) (Chronic) Hyponatremia (Acute) Pancytopenia (Acute) Medical History (Updated 07/16/21 @ 17:40 by Jenny Dowd MD) Alcohol abuse GERD (gastroesophageal reflux disease) HTN (hypertension) Hx of hyperlipidemia Orthostatic hypotension Stenosis of both internal carotid arteries Vertigo Surgical History Fracture of right hip pinning Hx of cholecystectomy Social History Smoking/Tobacco Use Status: Current every day Tobacco Type: cigars Smoking risk assessment performed?: Yes Alcohol Intake: current Alcohol Intake frequency: holidays/special occasions only Drug use: Never Substance use type: does not use Do you feel safe at home: Yes Do you feel safe in your relationship?: Yes
--- NOTE | 2021-07-17 19:10 | CMDISCH_ITS ---
- If Service Date Differs Date of service: 07/17/21 Time of Service: 19:10 LACE Index Scoring Tool - Questions: Length of Stay (in days): 7 - 13 Acuity (Admit via E.D.?): Yes Comorbidities: Chronic Pulmonary Disease E.D. Visits: 2 - Answers: Total Score: 12 Risk of Readmission: High Risk Care Management Discharge Reason for Hospitalization: Syncope, T11 Vertebral Body Fx, Right Ribs Fx Discharge Plan: Tyler went to [facility] for short term rehab today prior to returning home. He was transported by [employer] w/c [employer], coordinated by CM. He will follow up with his PCP and discharge plan of care. He was happy to be going to rehab. Patient/Family Education Needs: Review discharge instructions and limitations, discussion of self care needs and goals of care. Services Needed at Discharge: Snf Facility ([facility]), Transportation ([facility]/c [employer])
== END 2021-07-17 11:30 | disposition skilled nursing facility (03) | DRG 551 ==
LOC: ER 07-08 00:06 → MS 07-08 01:22
PROVIDERS: Internal Medicine; Nurse Practitioner Acute Care; Admitting Provider Family Medicine; Emergency Provider Physician Assistant; PCP Internal Medicine; Visit Provider Family Medicine
DX: S22.088A Other fracture of T11-T12 vertebra, initial encounter for closed fracture (principal); J18.9 Pneumonia, unspecified organism; D61.818 Other pancytopenia; E87.1 Hypo-osmolality and hyponatremia; E51.2 Wernicke's encephalopathy; J44.1 Chronic obstructive pulmonary disease with (acute) exacerbation; J44.0 Chronic obstructive pulmonary disease with (acute) lower respiratory infection; I65.21 Occlusion and stenosis of right carotid artery; F10.10 Alcohol abuse, uncomplicated; I10 Essential (primary) hypertension; W19.XXXA Unspecified fall, initial encounter; S61.011A Laceration without foreign body of right thumb without damage to nail, initial encounter; S22.42XD Multiple fractures of ribs, left side, subsequent encounter for fracture with routine healing; X58.XXXD Exposure to other specified factors, subsequent encounter; R14.0 Abdominal distension (gaseous); G62.9 Polyneuropathy, unspecified; H81.313 Aural vertigo, bilateral; K21.9 Gastro-esophageal reflux disease without esophagitis; E78.5 Hyperlipidemia, unspecified; F17.290 Nicotine dependence, other tobacco product, uncomplicated; I95.1 Orthostatic hypotension; R25.1 Tremor, unspecified; S00.03XA Contusion of scalp, initial encounter; G47.00 Insomnia, unspecified; E55.9 Vitamin D deficiency, unspecified
CPT/HCPCS: 12001; 36415; 51702; 74177; 80048; 80053; 82306; 84145; 87081; 87635; 93005; 93306; 96361; 96374; 96375; 97110; 97162; 97166; 97530; 97535; 99285; 70450; 71045; 71260; 72125; 72128; 72131; 73140; 80320; 81003; 81015; 82607; 82746; 83735; 84100; 84443; 84484; 85025; 87086; 93010; 94640; 94760; 99223; 99232; 99233; 99239; J1885; J1940; J1941; J2270; J3010; J3490; J7512; J7620

== ENCOUNTER 2021-08-24 15:47 | Emergency (ER) | payer OTHER, SELFPAY ==
--- NOTE | 2021-08-24 16:00 | DI.RAD_ITS ---
Exam(s) XR HEEL LT OS CALCIS EXAM: XR HEEL LT OS CALCIS CLINICAL HISTORY: calcaneal ulcer. TECHNIQUE: 2D digital imaging was performed. COMPARISON: No exams were available for comparison FINDINGS: Two views- lateral and Siegel axial views No evidence of calcaneus fracture. No radiographic evidence of osteomyelitis. There is osteopenia. Vascular calcification is noted in the posterior and anterior tibial arteries. No obvious degenerat silvino changes. No osseous tarsal coalition evident. IMPRESSION: Age-related osteopenia no fractures. DATA REPOSITORY: RADIATION DOSE DELIVERED:
--- NOTE | 2021-08-24 16:05 | ED.GENADUL_ITS ---
Discharge Plan Disposition Patient Disposition: HOME Condition: Improving Discharge Details Clinical Impression: Diabetic foot ulcer Primary Care Provider: Brad Morrow ED Provider: Kurtis Taylor Home Meds and New Rx's Prescriptions: New amoxicillin-pot clavulanate 875-125 mg tablet 1 tab PO BID 10 Days Qty: 20 0RF Continued bisacodyl 10 mg suppository 10 mg WA DAILY PRN magnesium oxide 400 mg (241.3 mg magnesium) tablet 400 mg PO BID nitroglycerin [Nitrostat] 0.4 mg tablet, sublingual 0.4 mg Sublingual Q5M PRN Rx Instructions: for chest pain vitamin B34-[id number] acid 500-400 mcg tablet 1 tab PO DAILY Rx Instructions: administer with a meal amlodipine 10 MG tablet 10 mg PO DAILY omeprazole 20 MG capsule,delayed release(DR/EC) 40 mg PO DAILY Label Comments: Pt. states that he doesn't take this medication. folic acid 1 MG tablet 1 mg PO DAILY 0RF Label Comments: Pt states that he does not take this medication loratadine 10 mg Tablet 10 mg PO DAILY albuterol sulfate 90 mcg/actuation HFA aerosol inhaler 2 puff INHALATION Q6H PRN atorvastatin 10 MG tablet 10 mg PO DAILY aspirin [Children's Aspirin] 81 MG tablet,chewable 81 mg PO DAILY multivitamin [Daily Multi-Vitamin] 1 EACH tablet 1 tab PO DAILY potassium chloride 20 mEq tablet extended release 20 meq PO DAILY Qty: 30 0RF tamsulosin 0.4 mg Capsule 0.4 mg PO HS Qty: 0 0RF trazodone 100 MG tablet 200 mg PO HS Qty: 0 0RF Label Comments: Pt. is aware that he took too large a dose (300 mg) and that he needs to take 200 mg. lisinopril 10 MG tablet 10 mg PO QPM Qty: 0 0RF meclizine 25 mg tablet 25 mg PO TID PRNQty: 30 0RF Acetaminophen [Tylenol] 1,000 mg PO BID Qty: 0 0RF polyethylene glycol 3350 17 gram Powder In Packet 17 g PO BID Qty: 0 0RF prednisone 20 mg Tablet 40 mg PO DAILY Qty: 0 0RF midodrine 5 mg Tablet 2.5 mg PO TID Qty: 0 0RF melatonin 3 mg Tablet 3 mg PO HS Qty: 0 0RF lidocaine 5 % Adhesive Patch,Medicated 2 patch topical Q24H Qty: 0 0RF docusate sodium [Colace] 100 mg Capsule 100 mg PO BID Qty: 0 0RF furosemide 20 mg Tablet 20 mg PO DAILY Qty: 0 0RF oxycodone 5 mg Tablet 5 mg PO Q4H PRN PRNQty: 15 0RF cholecalciferol (vitamin D3) 25 mcg (1,000 unit) Tablet 2,000 units PO DAILY Qty: 0 0RF thiamine mononitrate (vit B1) [Vitamin B-1 (mononitrate)] 100 mg Tablet 100 mg PO DAILY Qty: 0 0RF Inhaler, Assist Devices [Pocket Chamber] 1 ea miscellaneous DIRECTED Qty: 0 0RF No Action amoxicillin-pot clavulanate 875-125 mg Tablet 1 tab PO BID Qty: 0 0RF Discharge Instructions Additional Instructions: Please follow-up with the [facility] on Friday as planned. You may return to normal dressing changes on Friday. The current dressing may stay in place. Take Augmentin as prescribed, next dose will be approximately 11 PM and then starting tomorrow will be twice daily once in the morning and evening. Return to the ER for any acute concerns. Medical Decision Making 81-year-old male presents from home after referral by home health worker today. He has had a left heel ulcer that has been managed with Friday, Friday, Friday dressing changes. There is increased odor and concern for the wound today for which patient was referred to the ER. He denies any fever. He has not been taking antibiotics. The wound is a broad-based ulceration measuring approximately 5 x 5 cm with black eschar that is firmly adherent. He arrives a stable vital signs, he is calm, alert and interactive. There is a foul-smelling odor to the wound which was cleansed and a culture was obtained. Screening labs and x-ray obtained. Patient has a white count of 9, hematocrit is 36 and platelets 229. Chemistries are within normal limits. CRP is 2.2. X-ray without evidence of bony changes. Patient given a dose of Unasyn. He has a podiatry appointment on Friday at the [facility]. I will place him on Augmentin. We will have ongoing dressing changes. Home health nurses. I personally debrided the area and placed a Mepilex which he may leave on until seen by home health on this coming Friday. Stable for outpatient management. HPI General Mode of arrival: ambulatory . Date/Time Provider Initiated Documentation: 08/24/21 15:50 . Limitations to Documentation: no limitations . Information obtained by: patient . History of Present Illness 81 year old M presents to the emergency department with the chief complaint of Left heel ulcer, referred by home health, Quality is described as dull and constant, and is localized to the left and lower extremity. Patient reports no radia tion. Patient started experiencing this unknown and it has been constant. No relieving factors improve symptom(s), No exacerbating factors reported . Patient notes denies fever/chills and weakness. Patient did receive the following treatments prior to arrival, other (No antibiotics, home health dressing changes Friday, Friday, and Friday) Related Data Home Medications Medication Instructions Recorded Confirmed amlodipine 10 mg tablet 10 mg PO DAILY 10/25/14 07/31/21 omeprazole 20 mg capsule,delayed 40 mg PO DAILY 10/25/14 07/31/21 release folic acid 1 mg tablet 1 mg PO DAILY 04/01/15 07/08/21 aspirin 81 mg chewable tablet 81 mg PO DAILY 02/24/16 07/31/21 (Children's Aspirin) atorvastatin 10 mg tablet 10 mg PO DAILY 02/24/16 07/31/21 multivitamin (Daily Multi-Vitamin 1 tab PO DAILY 02/24/16 07/08/21 tablet) loratadine 10 mg tablet 10 mg PO DAILY 06/07/20 07/31/21 lisinopril 10 mg tablet 10 mg PO QPM #0 tabs 07/11/20 07/31/21 meclizine 25 mg tablet 25 mg PO TID PRN #30 tabs 07/11/20 07/31/21 potassium chloride 20 mEq 20 meq PO DAILY #30 tabs 07/11/20 07/31/21 tablet,extended release tamsulosin 0.4 mg capsule 0.4 mg PO HS #0 caps 07/11/20 07/31/21 trazodone 100 mg tablet 200 mg PO HS #0 tabs 07/11/20 07/31/21 Acetaminophen [Tylenol] 1,000 mg PO BID ##0 07/17/21 Inhaler, Assist Devices [Pocket 1 ea miscellaneous DIRECTED ##0 07/17/21 Chamber] amoxicillin 875 mg-potassium 1 tab PO BID #0 tabs 07/17/21 clavulanate 125 mg tablet cholecalciferol (vitamin D3) 25 2,000 units PO DAILY #0 tabs 07/17/21 07/31/21 mcg (1,000 unit) tablet docusate sodium 100 mg capsule 100 mg PO BID #0 caps 07/17/21 07/31/21 (Colace) furosemide 20 mg tablet 20 mg PO DAILY #0 tabs 07/17/21 07/31/21 lidocaine 5 % topical patch 2 patch topical Q24H #0 ea 07/17/21 07/31/21 melatonin 3 mg tablet 3 mg PO HS #0 tabs 07/17/21 07/31/21 midodrine 5 mg tablet 2.5 mg PO TID #0 tabs 07/17/21 07/31/21 oxycodone 5 mg tablet 5 mg PO Q4H PRN PRN #15 tabs 07/17/21 07/31/21 polyethylene glycol 3350 17 gram 17 g PO BID #0 ea 07/17/21 07/31/21 oral powder packet prednisone 20 mg tablet 40 mg PO DAILY #0 tabs 07/17/21 thiamine mononitrate (vit B1) 100 100 mg PO DAILY #0 tabs 07/17/21 mg tablet (Vitamin B-1 (mononitrate)) albuterol sulfate 90 mcg/actuation 2 puff inhalation Q6H PRN 07/30/21 07/31/21 aerosol inhaler bisacodyl 10 mg rectal suppository 10 mg WA DAILY PRN 07/30/21 07/31/21 magnesium oxide 400 mg (241.3 mg 400 mg PO BID 07/30/21 07/31/21 magnesium) tablet nitroglycerin 0.4 mg sublingual 0.4 mg sublingual Q5M PRN 07/30/21 07/31/21 tablet (Nitrostat) vitamin B12 500 mcg-folic acid 400 1 tab PO DAILY 07/30/21 07/31/21 mcg tablet amoxicillin 875 mg-potassium 1 tab PO BID 10 days #20 tabs 08/24/21 clavulanate 125 mg tablet Previous Rx's Medication Instructions Recorded folic acid 1 mg tablet 1 mg PO DAILY 04/01/15 lisinopril 10 mg tablet 10 mg PO QPM #0 tabs 07/11/20 meclizine 25 mg tablet 25 mg PO TID PRN #30 tabs 07/11/20 potassium chloride 20 mEq 20 meq PO DAILY #30 tabs 07/11/20 tablet,extended release tamsulosin 0.4 mg capsule 0.4 mg PO HS #0 caps 07/11/20 trazodone 100 mg tablet 200 mg PO HS #0 tabs 07/11/20 Acetaminophen [Tylenol] 1,000 mg PO BID ##0 07/17/21 Inhaler, Assist Devices [Pocket 1 ea miscellaneous DIRECTED ##0 07/17/21 Chamber] amoxicillin 875 mg-potassium 1 tab PO BID #0 tabs 07/17/21 clavulanate 125 mg tablet cholecalciferol (vitamin D3) 25 2,000 units PO DAILY #0 tabs 07/17/21 mcg (1,000 unit) tablet docusate sodium 100 mg capsule 100 mg PO BID #0 caps 07/17/21 (Colace) furosemide 20 mg tablet 20 mg PO DAILY #0 tabs 07/17/21 lidocaine 5 % topical patch 2 patch topical Q24H #0 ea 07/17/21 melatonin 3 mg tablet 3 mg PO HS #0 tabs 07/17/21 midodrine 5 mg tablet 2.5 mg PO TID #0 tabs 07/17/21 oxycodone 5 mg tablet 5 mg PO Q4H PRN PRN #15 tabs 07/17/21 polyethylene glycol 3350 17 gram 17 g PO BID #0 ea 07/17/21 oral powder packet prednisone 20 mg tablet 40 mg PO DAILY #0 tabs 07/17/21 thiamine mononitrate (vit B1) 100 100 mg PO DAILY #0 tabs 07/17/21 mg tablet (Vitamin B-1 (mononitrate)) amoxicillin 875 mg-potassium 1 tab PO BID 10 days #20 tabs 08/24/21 clavulanate 125 mg tablet Allergies Allergy/AdvReac Type Severity Reaction Status Date / Time No Known Allergies Allergy Verified 08/24/21 15:57 General Stated Complaint: Cellulitis EDITH: 3 Review of Systems Narrative: No fever or chills. Denies any other complaints. Has had home health Friday, Friday, Friday. 8 systems were reviewed and otherwise negative PFSH All Active Problems (Updated 08/24/21 @ 17:39 by Kurtis Taylor MD) Diabetic foot ulcer (Acute) DNR (do not resuscitate) (Acute) Health insurance with [facility] (Acute) Acute exacerbation of chronic obstructive pulmonary disease (COPD) (Acute) Pneumonia (Acute) Wernicke encephalopathy (Acute) Insomnia (Acute) Intention tremor (Chronic) COPD exacerbation (Acute) Hypertension (Chronic) Pain (Acute) Syncope (Acute) Fracture of rib of left side (Chronic) Laceration of right thumb (Acute) Thoracic vertebral fracture (Acute) Peripheral neuropathy (Chronic) Peripheral vertigo of both ears (Acute) Stenosis of right internal carotid artery (Acute) Discharge planning issues (Acute) DVT prophylaxis (Acute) Dizziness (Acute) Chest pain (Acute) Alcohol abuse (Chronic) Community acquired pneumonia (Acute) COPD (chronic obstructive pulmonary disease) (Chronic) Hyponatremia (Acute) Pancytopenia (Acute) Medical History Alcohol abuse GERD (gastroesophageal reflux disease) HTN (hypertension) Hx of hyperlipidemia Orthostatic hypotension Stenosis of both internal carotid arteries Vertigo Surgical History Fracture of right hip pinning Hx of cholecystectomy Social History Smoking/Tobacco Use Status: Current every day Tobacco Type: cigars Smoking risk assessment performed?: Yes Alcohol Intake: former Drug use: Never Substance use type: does not use Do you feel safe at home: Yes Do you feel safe in your relationship?: Yes Exam Narrative Exam Narrative: GEN: awake, alert, oriented 3. Pleasant, well groomed, interactive. HEAD: Normocephalic, atraumatic ENT: Mucous membranes moist, oropharynx unremarkable, External ear exam unremarkable EYES: PERRL, EOMI NECK: Full ROM, no PETER, no menigismus CHEST/RESP: Nontender, clear to auscultation bilateral, no wheeze/rhonchi/rales CARDIOVASCULAR: Distant heart sounds. 2+ Rad pulse bilateral ABDOMEN: Soft, nontender, no mass. +Bowel sounds EXT: Full ROM, the left heel has a large approximately 5 x 5 cm broad-based ulceration with dark eschar is firmly adherent Neuro: Grossly normal neurologic exam, conversant, interactive. Psych: Speech fluent, thoughts congruent, affect normal Course Vital Signs Vital signs: Respiratory Effort 08/24/21 15:52 Pain Level 5 08/24/21 15:52
[2021-08-24 16:26] LABS: Abs Immature Grans 0.03 10^3/uL (0.0-0.06); Absolute Basophil Count 0.07 10^3/uL (0.0-0.2); Absolute Eosinophil Count 0.31 10^3/uL (0.0-0.7); Absolute Lymphocyte Count 1.92 10^3/uL (1.2-3.4); Absolute Neutrophil Count 5.98 10^3/uL (1.2-6.7); Basophils % 0.8; Eosinophils % 3.4; HCT 36.2 % (40.0-50.0); HGB 11.9 g/dL (13.5-17.5); Immature Grans % 0.3; Lymphocytes % 21.1; MCH 32.1 pg (27.0-33.0); MCHC 32.9 % (32.0-36.0); MCV 98 fL (80-95); MPV 10.5 fL (8.0-11.0); Monocytes % 8.8; Neutrophils % 65.6; Platelet Count 229 10^3/uL (130-400); RBC 3.71 10^6/uL (4.36-5.78); RDW 11.9 % (11.8-14.1); RDW-SD 42.6 fL; WBC 9.11 10^3/uL (4.4-10.8)
[2021-08-24] MEDS: AMPICILLIN/SULBACTAM 3 GM in Normal Saline 100 ML IVPB (16:30)
[2021-08-24] MEDS: Normal Saline 1,000 ML 125 ML IV (16:31)
[2021-08-24 16:44] LABS: ALT 19 U/L (16-63); AST 15 U/L (15-37); Albumin 2.9 g/dL (3.4-5.0); Alkaline Phosphatase 160 U/L (46-116); Anion Gap 8.3 mmol/L (3-11); BUN 10 mg/dL (7-18); Bilirubin, Total 0.3 mg/dL (0.2-1.0); C-Reactive Protein 2.26 mg/dL (0.0-0.3); CO2 27.7 mmol/L (21.0-32.0); CREATININE 1.2 mg/dL (0.70-1.30); Calcium 9.3 mg/dL (8.5-10.1); Chloride 100 mmol/L (98-107); Glucose 106 mg/dL (74-106); Sodium 136 mmol/L (136-145); Total Protein 7.5 g/dL (6.4-8.2)
--- NOTE | 2021-08-24 17:28 | NUR.NOTE ---
Nursing Note: PT INFO GIVEN TO CARE MANAGEMENT TO BE SEEN BY PODIATRY WITHIN THE WEEK FOR A DIABETIC HEEL ULCER. NGOZI, ED
--- NOTE | 2021-08-24 17:35 | DI.VRAD_ITS ---
PROCEDURE INFORMATION: Exam: XR Left Calcaneus Exam date and time: 08/24/2021 5:12 PM Age: 81 years old Clinical indication: Pain; Heel; Left; Patient HX: PT states he has a calcaneal ulcer on his heal TECHNIQUE: Imaging protocol: XR of the Left calcaneus. Views: 2 or more views. COMPARISON: CT LEFT LOWER EXTREM WO CONTRAST 06/29/2014 15:25 FINDINGS: Bones/joints: Decreased bone mineralization. No fracture or dislocation. Soft tissues: Unremarkable. Calcaneal ulcer is not appreciated. Vasculature: Atherosclerotic disease. IMPRESSION: No evidence for acute bony injury. If clinical symptoms persist recommend followup film in 7-10 days. Dictated and Authenticated by: Galilea Kee MD. Ordering:UMA Hull MD
[2021-08-24 18:06] VITALS: BP 136/80; PULSE 75; RESP 18; TEMP 37; O2SAT 95
[2021-08-24] MEDS: Amox. 875/Clav. 125, 2 TABS/BTL 1 TAB PO (18:09)
== END 2021-08-24 17:59 | disposition home or self-care (01) ==
PROVIDERS: Emergency Provider Emergency Medicine; PCP Internal Medicine
DX: E11.621 Type 2 diabetes mellitus with foot ulcer (principal); L97.428 Non-pressure chronic ulcer of left heel and midfoot with other specified severity
CPT/HCPCS: 36415; 80053; 87077; 96361; 96365; 99284; 73650; 85025; 86140; 87070; 87186; 87205; J0295

== ENCOUNTER 2021-10-19 19:33 | Inpatient (IN) | payer OTHER, SELFPAY ==
[2021-10-19] VITALS (35 sets, daily range): BP systolic 106–128; BP diastolic 51–65; PULSE 70–100; RESP 16–27; TEMP 36.3; O2SAT 94–96
--- NOTE | 2021-10-19 19:30 | RT.EKG_ITS ---
APPROVED REPORT Exam: Resting ECG Reason for Exam: dizzy Patient Location: E HR:81 bpm ECG Measurements Heart Rate 81 AXIS ID 140 P 90 QRSd 87 QRS 54 QT 361 T 23 QTc 420 Conclusion Sinus arrhythmia...V-rate 69-103, variation>10% Atrial premature complex...SV complex w/ short R-R interval nondiagnostic
--- NOTE | 2021-10-19 19:45 | DI.CT_ITS ---
Exam(s) CT LOWER EXTREMITY LT WO EXAM: CT LOWER EXTREMITY LT WO CLINICAL HISTORY: limited to foot, open wound, concern for osteo TECHNIQUE: COMPARISON: CR,XR XR HEEL LT OS CALCIS from 08/24/2021 FINDINGS: CT examination of the left foot was performed utilizing multi slice acquisition and multi planer denise nstruction. There is large quantity of gas in the calcaneus with an apparent pathologic complex calc aneal fracture with moderate displacement. There is marked bony resorption highly suggestive of oste omyelitis with some apparent new bone formation also present. There is diffuse demineralization of t he bones of the foot which is nonspecific and which may represent disuse. No other specific evidence of osteomyelitis. 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 RADIATION DOSE DELIVERED: 259.48mGy.cm Total DLP !Error CTDIvol RADIATION OPTIMIZATION: All CT scans at this facility use at least one of these dose optimization te chniques: automated exposure control; mA and/or kV adjustment per patient size (includes targeted exa ms where dose is matched to clinical indication); or iterative reconstruction.
[2021-10-19 20:25] LABS: Source Nasal/Nares
[2021-10-19 20:27] LABS: ESR 44 mm/hr (0-20)
[2021-10-19] MEDS: Lactated Ringers 500 ML 1000 ML IV (20:27)
[2021-10-19 20:28] LABS: Abs Immature Grans 0.05 10^3/uL (0.0-0.06); Absolute Basophil Count 0.04 10^3/uL (0.0-0.2); Absolute Eosinophil Count 0.04 10^3/uL (0.0-0.7); Absolute Lymphocyte Count 0.99 10^3/uL (1.2-3.4); Absolute Monocyte Count 1.03 10^3/uL (0.1-0.8); Basophils % 0.3; Eosinophils % 0.3; HCT 31.5 % (40.0-50.0); HGB 10.6 g/dL (13.5-17.5); Immature Grans % 0.4; Lactate 1.6 mmol/L (0.6-1.4); Lymphocytes % 7.7; MCH 30.7 pg (27.0-33.0); MCHC 33.7 % (32.0-36.0); MCV 91 fL (80-95); MPV 10.1 fL (8.0-11.0); Neutrophils % 83.3; Platelet Count 312 10^3/uL (130-400); RBC 3.45 10^6/uL (4.36-5.78); RDW 12.5 % (11.8-14.1); RDW-SD 41.2 fL; WBC 12.83 10^3/uL (4.4-10.8)
[2021-10-19 20:31] LABS: Absolute Neutrophil Count 10.69 10^3/uL (1.2-6.7)
[2021-10-19 20:53] LABS: ALT 34 U/L (16-63); AST 38 U/L (15-37); Albumin 1.9 g/dL (3.4-5.0); Alkaline Phosphatase 170 U/L (46-116); BUN 18 mg/dL (7-18); Bilirubin, Total 0.6 mg/dL (0.2-1.0); CREATININE 1.3 mg/dL (0.70-1.30); Calcium 8.5 mg/dL (8.5-10.1); Chloride 94 mmol/L (98-107); Estimated GFR 53.25 (mL/min/1.73m2); Glucose 100 mg/dL (74-106); Potassium 3.8 mmol/L (3.5-5.1); Sodium 127 mmol/L (136-145); Total Protein 7.3 g/dL (6.4-8.2)
[2021-10-19 21:23] LABS: COVID-19 PCR Negative (Negative)
[2021-10-19 22:39] LABS: Bilirubin Negative (Negative); Blood Negative (Negative); Clarity Clear (Clear); Glucose Negative (Negative); Ketones Negative (Negative); Leukocyte Esterase Negative (Negative); Nitrite Negative (Negative)
--- NOTE | 2021-10-19 23:02 | ED.GENADUL_ITS ---
Discharge Plan Disposition Patient Disposition: [facility] INPATIENT Condition: Serious Discharge Details Chief Complaint: GenMedical Clinical Impression: Sepsis, Osteomyelitis of ankle, Acute hyponatremia Admit Date/Time: 10/19/21 23:54 Admit Provider: Dontae Galdamez Attending Provider: Dontae Galdamez Primary Care Provider: Brad Morrow ED Provider: Kun Moreno Discharge Data Discharge Date/Time-TO BE ENTERED AT DEPARTURE: 10/20/21 00:48 Medical Decision Making 81-year-old male with multiple medical problems including history of COPD, hypertension, hypercholesterolemia, chronic ulcer left heel, here with lightheadedness, found to be hypotensive by EMS. Patient normotensive on arrival with no tachycardia and afebrile, saturating well in no respiratory distress. EKG was reviewed and interpreted by me: Please see report, sinus rhythm, nondiagnostic. Left heel ulcer with purulent discharge and surrounding erythema concerning for acute on chronic cellulitis versus osteomyelitis. Labs reviewed inflammatory markers are significantly elevated. CT of the foot was reviewed and interpreted by radiology: IMPRESSION: Calcaneal osteomyelitis.? Overlying ulceration.? Pathologic appearing calcaneal fracture may be due to a combination of severe demineralization and osteomyelitis, unclear if a traumatic component was present clinically. Broad-spectrum antibiotic coverage was initiated with vancomycin IV and cefepime IV. I called and spoke with Dr. Cartagena, discussed ED presentation course, he reviewed the CAT scan and feels amputation is likely necessary but recommends admission for IV antibiotics. [facility] [place] [facility] to [facility] in transfer secondary to no bed availability. They recommended admission here for treatment. I called and spoke with hospitalist on-call, Dr. Rose, discussed ED presentation course, he will admit the patient. Care transition at time of admission. Lab Data Lab results reviewed: Yes I reviewed the patient's lab results. Labs: 10/19/21 23:05 Blood Blood Culture - Pending 10/19/21 20:19 Blood Blood Culture - Pending Laboratory Tests Range/Units 10/19/21 10/19/21 10/19/21 20:20 20:20 20:20 WBC (4.4-10.8) 10^3/uL 12.83 H RBC (4.36-5.78) 10^6/uL 3.45 L Hgb (13.5-17.5) g/dL 10.6 L Hct (40.0-50.0) % 31.5 L MCV (80-95) fL 91 MCH (27.0-33.0) pg 30.7 MCHC (32.0-36.0) % 33.7 RDW (11.8-14.1) % 12.5 Plt Count (130-400) 10^3/uL 312 MPV (8.0-11.0) fL 10.1 Immature Gran % 0.4 Neutrophils % 83.3 Lymphocytes % 7.7 Monocytes % 8.0 Eosinophils % 0.3 Basophils % 0.3 Nucleated RBC % (0.0-0.3) % 0.0 Absolute Neutrophils (1.2-6.7) 10^3/uL 10.69 H Absolute Lymphocytes (1.2-3.4) 10^3/uL 0.99 L Absolute Monocytes (0.1-0.8) 10^3/uL 1.03 H Absolute Eosinophils (0.0-0.7) 10^3/uL 0.04 Absolute Basophils (0.0-0.2) 10^3/uL 0.04 ESR (0-20) mm/hr VBG Lactate (0.6-1.4) mmol/L 1.6 H Sodium (136-145) mmol/L 127 L Potassium (3.5-5.1) mmol/L 3.8 Chloride (98-107) mmol/L 94 L Carbon Dioxide (21.0-32.0) mmol/L 25.0 Anion Gap (3-11) mmol/L 8.0 BUN (7-18) mg/dL 18 Creatinine (0.70-1.30) mg/dL 1.3 Estimated GFR/1.73 m2 (mL/min/1.73m2) 53.25 Glucose (74-106) mg/dL 100 Calcium (8.5-10.1) mg/dL 8.5 Total Bilirubin (0.2-1.0) mg/dL 0.6 AST (15-37) U/L 38 H ALT (16-63) U/L 34 Alkaline Phosphatase (46-116) U/L 170 H C-Reactive Protein (0.0-0.3) mg/dL 13.70 H Total Protein (6.4-8.2) g/dL 7.3 Albumin (3.4-5.0) g/dL 1.9 L Urine Color (Yellow) Urine Clarity (Clear) Urine pH (5-8) Ur Specific [place] (1.005-1.025) Urine Protein (Negative) mg/dL Urine Ketones (Negative) mg/dL Urine Blood (Negative) Urine Nitrite (Negative) Urine Bilirubin (Negative) Urine Urobilinogen (Up TO 0.2) EU/dL Ur Leukocyte Esterase (Negative) Urine Glucose (Negative) mg/dL COVID-19 Source SARS-CoV-2 (PCR) (Negative) Range/Units 10/19/21 10/19/21 10/19/21 20:20 20:21 22:30 WBC (4.4-10.8) 10^3/uL RBC (4.36-5.78) 10^6/uL Hgb (13.5-17.5) g/dL Hct (40.0-50.0) % MCV (80-95) fL MCH (27.0-33.0) pg MCHC (32.0-36.0) % RDW (11.8-14.1) % Plt Count (130-400) 10^3/uL MPV (8.0-11.0) fL Immature Gran % Neutrophils % Lymphocytes % Monocytes % Eosinophils % Basophils % Nucleated RBC % (0.0-0.3) % Absolute Neutrophils (1.2-6.7) 10^3/uL Absolute Lymphocytes (1.2-3.4) 10^3/uL Absolute Monocytes (0.1-0.8) 10^3/uL Absolute Eosinophils (0.0-0.7) 10^3/uL Absolute Basophils (0.0-0.2) 10^3/uL ESR (0-20) mm/hr 44 H VBG Lactate (0.6-1.4) mmol/L Sodium (136-145) mmol/L Potassium (3.5-5.1) mmol/L Chloride (98-107) mmol/L Carbon Dioxide (21.0-32.0) mmol/L Anion Gap (3-11) mmol/L BUN (7-18) mg/dL Creatinine (0.70-1.30) mg/dL Estimated GFR/1.73 m2 (mL/min/1.73m2) Glucose (74-106) mg/dL Calcium (8.5-10.1) mg/dL Total Bilirubin (0.2-1.0) mg/dL AST (15-37) U/L ALT (16-63) U/L Alkaline Phosphatase (46-116) U/L C-Reactive Protein (0.0-0.3) mg/dL Total Protein (6.4-8.2) g/dL Albumin (3.4-5.0) g/dL Urine Color (Yellow) Yellow Urine Clarity (Clear) Clear Urine pH (5-8) 6.0 Ur Specific [place] (1.005-1.025) 1.010 Urine Protein (Negative) mg/dL Negative Urine Ketones (Negative) mg/dL Negative Urine Blood (Negative) Negative Urine Nitrite (Negative) Negative Urine Bilirubin (Negative) Negative Urine Urobilinogen (Up TO 0.2) EU/dL 1.0 H Ur Leukocyte Esterase (Negative) Negative Urine Glucose (Negative) mg/dL Negative COVID-19 Source Nasal/Nares SARS-CoV-2 (PCR) (Negative) Negative HPI General Mode of arrival: EMS . Date/Time Provider Initiated Documentation: 10/19/21 19:41 . Limitations to Documentation: other (poor historian) . Information obtained by: patient . HPI Narrative: 81-year-old male with multiple medical problems presents with chief complaint of dizziness. [place] and noted that he started to feel unwell and dizzy like he was in a pass out. Symptoms were severe. He approached EMS and was noted a blood pressure of 70/40. Patien t was given small IV fluid bolus of 250 mL in route. Patient also notes chronic pressure wound and ulcer left foot. Patient notes dizziness has improved somewhat. Symptoms are severe and now moderate. He denies associated fever. No chest pain. Related Data Home Medications Medication Instructions Recorded Confirmed amlodipine 10 mg tablet 10 mg PO DAILY 10/25/14 07/31/21 omeprazole 20 mg capsule,delayed 40 mg PO DAILY 10/25/14 10/19/21 release aspirin 81 mg chewable tablet 81 mg PO DAILY 02/24/16 10/19/21 (Children's Aspirin) atorvastatin 10 mg tablet 10 mg PO DAILY 02/24/16 10/19/21 loratadine 10 mg tablet 10 mg PO DAILY 06/07/20 10/19/21 lisinopril 10 mg tablet 10 mg PO QPM #0 tabs 07/11/20 10/19/21 potassium chloride 20 mEq 20 meq PO DAILY #30 tabs 07/11/20 10/19/21 tablet,extended release tamsulosin 0.4 mg capsule 0.4 mg PO HS #0 caps 07/11/20 10/19/21 trazodone 100 mg tablet 200 mg PO HS #0 tabs 07/11/20 10/19/21 Acetaminophen [Tylenol] 1,000 mg PO BID ##0 07/17/21 Inhaler, Assist Devices [Pocket 1 ea miscellaneous DIRECTED ##0 07/17/21 Chamber] furosemide 20 mg tablet 20 mg PO DAILY #0 tabs 07/17/21 10/19/21 midodrine 5 mg tablet 2.5 mg PO TID #0 tabs 07/17/21 07/31/21 prednisone 20 mg tablet 40 mg PO DAILY #0 tabs 07/17/21 albuterol sulfate 90 mcg/actuation 2 puff inhalation Q6H PRN 07/30/21 10/19/21 aerosol inhaler magnesium oxide 400 mg (241.3 mg 400 mg PO BID 07/30/21 07/31/21 magnesium) tablet nitroglycerin 0.4 mg sublingual 0.4 mg sublingual Q5M PRN 07/30/21 10/19/21 tablet (Nitrostat) Previous Rx's Medication Instructions Recorded lisinopril 10 mg tablet 10 mg PO QPM #0 tabs 07/11/20 potassium chloride 20 mEq 20 meq PO DAILY #30 tabs 07/11/20 tablet,extended release tamsulosin 0.4 mg capsule 0.4 mg PO HS #0 caps 07/11/20 trazodone 100 mg tablet 200 mg PO HS #0 tabs 07/11/20 Acetaminophen [Tylenol] 1,000 mg PO BID ##0 07/17/21 Inhaler, Assist Devices [Pocket 1 ea miscellaneous DIRECTED ##0 07/17/21 Chamber] furosemide 20 mg tablet 20 mg PO DAILY #0 tabs 07/17/21 midodrine 5 mg tablet 2.5 mg PO TID #0 tabs 07/17/21 prednisone 20 mg tablet 40 mg PO DAILY #0 tabs 07/17/21 Allergies Allergy/AdvReac Type Severity Reaction Status Date / Time No Known Allergies Allergy Verified 10/19/21 19:37 General Stated Complaint: GenMedical EDITH: 3 Review of Systems All systems reviewed & are unremarkable except as noted in HPI and below Constitutional Constitutional: Denies fever(s) Cardiovascular Cardiovascular: Denies chest pain and Denies dyspnea Respiratory Respiratory: Denies dyspnea Integumentary/Breasts Skin/Breast: Reports as per HPI PFSH All Active Problems DNR (do not resuscitate) (Acute) Health insurance with [facility] [employer] (Acute) Acute exacerbation of chronic obstructive pulmonary disease (COPD) (Acute) Pneumonia (Acute) Wernicke encephalopathy (Acute) Insomnia (Acute) Intention tremor (Chronic) COPD exacerbation (Acute) Hypertension (Chronic) Pain (Acute) Syncope (Acute) Fracture of rib of left side (Chronic) Laceration of right thumb (Acute) Thoracic vertebral fracture (Acute) Peripheral neuropathy (Chronic) Peripheral vertigo of both ears (Acute) Stenosis of right internal carotid artery (Acute) Discharge planning issues (Acute) DVT prophylaxis (Acute) Dizziness (Acute) Chest pain (Acute) Alcohol abuse (Chronic) Community acquired pneumonia (Acute) COPD (chronic obstructive pulmonary disease) (Chronic) Hyponatremia (Acute) Pancytopenia (Acute) Medical History Alcohol abuse GERD (gastroesophageal reflux disease) HTN (hypertension) Hx of hyperlipidemia Orthostatic hypotension Stenosis of both internal carotid arteries Vertigo Surgical History Fracture of right hip pinning Hx of cholecystectomy Social History (Updated 10/20/21 @ 01:45 by Dontae Galdamez) Smoking/Tobacco Use Status: Current every day Tobacco Type: cigars Smoking risk assessment performed?: Yes Alcohol Intake: former Drug use: Never Substance use type: does not use Do you feel safe at home: Yes Do you feel safe in your relationship?: Yes Additional Social history: Lives in his own apartment, [place] [facility] Exam Const General: cooperative and no acute distress HENMT Mouth: moist mucous membranes Eyes Conjunctivae: normal conjunctivae Sclera: normal sclerae Neck Neck: trachea midline Resp Auscultation: clear to auscultation bilaterally, no rales, no rhonchi and no w heezes Cardio Rate: regular rate and not tachycardic Rhythm: regular rhythm Heart Sounds: no murmurs GI Palpation: soft, not firm, no guarding, no masses, not rigid and nontender Skin Other: Left heel with open wound with purulent drainage and surrounding erythema Neuro General: patient alert, patient awake and tone normal Sensory Exam: other (diminished sensation bilateral feet) Extrem General: no edema Psych Appearance: grossly normal Mental Status: mental status grossly normal Speech and Movement: speech and movement normal Course Vital Signs Vital signs: Vital Signs Temperature 36.3 C L 10/19/21 19:27 Pulse 90 10/19/21 19:27 Respiratory Rate 20 10/19/21 19:27 Blood Pressure 114/51 L 10/19/21 19:27 Pulse Oximetry 96 10/19/21 19:27 Temperature 36.3 C L 10/19/21 19:27 Temperature Source Temporal Artery Scan 10/19/21 19:27 Pulse 90 10/19/21 19:27 Respiratory Rate 20 10/19/21 19:35 Respiratory Effort 10/19/21 19:35 Respiratory Depth Normal 10/19/21 19:35 Respiratory Pattern Normal 10/19/21 19:35 Blood Pressure 114/51 L 10/19/21 19:27 Pulse Oximetry 96 10/19/21 19:27 Oxygen Delivery Method Room Air 10/19/21 19:27 Oxygen Flow Rate 0 10/19/21 19:27 Pain Level 0 10/19/21 19:27 Lab/Test Results Lab/Test Results: 10/19/21 20:19 Blood Blood Culture - Pending 10/19/21 19:59 Blood Blood Culture - Pending Laboratory Tests Range/Units 10/19/21 10/19/21 10/19/21 20:20 20:20 20:20 WBC (4.4-10.8) 10^3/uL 12.83 H RBC (4.36-5.78) 10^6/uL 3.45 L Hgb (13.5-17.5) g/dL 10.6 L Hct (40.0-50.0) % 31.5 L MCV (80-95) fL 91 MCH (27.0-33.0) pg 30.7 MCHC (32.0-36.0) % 33.7 RDW (11.8-14.1) % 12.5 Plt Count (130-400) 10^3/uL 312 MPV (8.0-11.0) fL 10.1 Immature Gran % 0.4 Neutrophils % 83.3 Lymphocytes % 7.7 Monocytes % 8.0 Eosinophils % 0.3 Basophils % 0.3 Nucleated RBC % (0.0-0.3) % 0.0 Absolute Neutrophils (1.2-6.7) 10^3/uL 10.69 H Absolute Lymphocytes (1.2-3.4) 10^3/uL 0.99 L Absolute Monocytes (0.1-0.8) 10^3/uL 1.03 H Absolute Eosinophils (0.0-0.7) 10^3/uL 0.04 Absolute Basophils (0.0-0.2) 10^3/uL 0.04 ESR (0-20) mm/hr VBG Lactate (0.6-1.4) mmol/L 1.6 H Sodium (136-145) mmol/L 127 L Potassium (3.5-5.1) mmol/L 3.8 Chloride (98-107) mmol/L 94 L Carbon Dioxide (21.0-32.0) mmol/L 25.0 Anion Gap (3-11) mmol/L 8.0 BUN (7-18) mg/dL 18 Creatinine (0.70-1.30) mg/dL 1.3 Estimated GFR/1.73 m2 (mL/min/1.73m2) 53.25 Glucose (74-106) mg/dL 100 Calcium (8.5-10.1) mg/dL 8.5 Total Bilirubin (0.2-1.0) mg/dL 0.6 AST (15-37) U/L 38 H ALT (16-63) U/L 34 Alkaline Phosphatase (46-116) U/L 170 H C-Reactive Protein (0.0-0.3) mg/dL 13.70 H Total Protein (6.4-8.2) g/dL 7.3 Albumin (3.4-5.0) g/dL 1.9 L Urine Color (Yellow) Urine Clarity (Clear) Urine pH (5-8) Ur Specific [place] (1.005-1.025) Urine Protein (Negative) mg/dL Urine Ketones (Negative) mg/dL Urine Blood (Negative) Urine Nitrite (Negative) Urine Bilirubin (Negative) Urine Urobilinogen (Up TO 0.2) EU/dL Ur Leukocyte Esterase (Negative) Urine Glucose (Negative) mg/dL COVID-19 Source SARS-CoV-2 (PCR) (Negative) Range/Units 10/19/21 10/19/21 10/19/21 20:20 20:21 22:30 WBC (4.4-10.8) 10^3/uL RBC (4.36-5.78) 10^6/uL Hgb (13.5-17.5) g/dL Hct (40.0-50.0) % MCV (80-95) fL MCH (27.0-33.0) pg MCHC (32.0-36.0) % RDW (11.8-14.1) % Plt Count (130-400) 10^3/uL MPV (8.0-11.0) fL Immature Gran % Neutrophils % Lymphocytes % Monocytes % Eosinophils % Basophils % Nucleated RBC % (0.0-0.3) % Absolute Neutrophils (1.2-6.7) 10^3/uL Absolute Lymphocytes (1.2-3.4) 10^3/uL Absolute Monocytes (0.1-0.8) 10^3/uL Absolute Eosinophils (0.0-0.7) 10^3/uL Absolute Basophils (0.0-0.2) 10^3/uL ESR (0-20) mm/hr 44 H VBG Lactate (0.6-1.4) mmol/L Sodium (136-145) mmol/L Potassium (3.5-5.1) mmol/L Chloride (98-107) mmol/L Carbon Dioxide (21.0-32.0) mmol/L Anion Gap (3-11) mmol/L BUN (7-18) mg/dL Creatinine (0.70-1.30) mg/dL Estimated GFR/1.73 m2 (mL/min/1.73m2) Glucose (74-106) mg/dL Calcium (8.5-10.1) mg/dL Total Bilirubin (0.2-1.0) mg/dL AST (15-37) U/L ALT (16-63) U/L Alkaline Phosphatase (46-116) U/L C-Reactive Protein (0.0-0.3) mg/dL Total Protein (6.4-8.2) g/dL Albumin (3.4-5.0) g/dL Urine Color (Yellow) Yellow Urine Clarity (Clear) Clear Urine pH (5-8) 6.0 Ur Specific [place] (1.005-1.025) 1.010 Urine Protein (Negative) mg/dL Negative Urine Ketones (Negative) mg/dL Negative Urine Blood (Negative) Negative Urine Nitrite (Negative) Negative Urine Bilirubin (Negative) Negative Urine Urobilinogen (Up TO 0.2) EU/dL 1.0 H Ur Leukocyte Esterase (Negative) Negative Urine Glucose (Negative) mg/dL Negative COVID-19 Source Nasal/Nares SARS-CoV-2 (PCR) (Negative) Negative
--- NOTE | 2021-10-19 23:11 | DI.VRAD_ITS ---
PROCEDURE INFORMATION: Exam: CT Left Lower Extremity With Contrast, Foot Exam date and time: 10/19/2021 22:45 Age: 81 years old Clinical indication: Pain; Left; Patient HX: Limited to foot, open wound, concern for osteo TECHNIQUE: Imaging protocol: CT of the Left lower extremity with intravenous contrast was performed. Exam focused on the foot. Radiation optimization: All CT scans at this facility use at least one of these dose optimization techniques: automated exposure control; mA and/or kV adjustment per patient size (includes targeted exams where dose is matched to clinical indication); or iterative reconstruction. COMPARISON: CT LEFT LOWER EXTREM WO CONTRAST 10/25/2014 15:25 FINDINGS: Bones/joints: The bones are demineralized. Pathology involving the calcaneus. There is erosion and periostitis involving the plantar and posterior calcaneus. Associated deformity of the posterior and anterior calcaneus essentially involving the entire plantar and posterior aspect without definite intra-articular involvement with the talus, probable minor involvement of the calcaneal cuboid joint associated with vacuum gas phenomenon. The deformity may be subacute and is probably due to a combination of demineralization and osteomyelitis. Soft tissues: Soft tissue swelling throughout the hindfoot, midfoot and forefoot. No gross fluid collection on noncontrast imaging. There is minor edema associated with the plantar hindfoot soft tissues adjacent to the calcaneal erosive process. A posterior hindfoot ulceration extends to the level of the posterior calcaneus. IMPRESSION: Calcaneal osteomyelitis. Overlying ulceration. Pathologic appearing calcaneal fracture may be due to a combination of severe demineralization and osteomyelitis, unclear if a traumatic component was present clinically. Dictated and Authenticated by: Kristi Barrios MD. Ordering:DIANA Tristan MD
[2021-10-19] MEDS: CEFEPIME 2 GM in Normal Saline 100 ML IVPB (23:37)
[2021-10-20] VITALS (72 sets, daily range): BP systolic 97–151; BP diastolic 43–112; PULSE 71–110; RESP 14–30; TEMP 36.7–38.1; O2SAT 88–97
--- NOTE | 2021-10-20 | DI.RAD_ITS ---
Exam(s) XR PORTABLE CHEST AP EXAM: XR PORTABLE CHEST AP CLINICAL HISTORY: cough, fever TECHNIQUE: COMPARISON: CT CT CHEST/ABD/PEL W from 07/07/2021 CR XR PORTABLE CHEST AP from 07/10/2021 CR XR PORTABLE CHEST AP from 07/16/2021 FINDINGS: Heart is not enlarged. There are extensive pleural calcifications including diaphragmatic pleural ca lcifications. 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 Previously described pulmonary infiltrates s een on examination of July 16 of this year have improved but there are questionable patchy persist ent or recurrent bibasilar pulmonary radiodensities. The chronicity of these findings is uncertain. Given the history of fever and cough, the findings may represent acute pneumonitis. Follow-up radio graphs recommended following treatment for presumed pneumonia. IMPRESSION: RADIATION DOSE DELIVERED: Total DLP
--- NOTE | 2021-10-20 01:36 | HPE_ITS ---
Date of service: 10/20/21 Time of Service: 01:37 Assessment and Plan Assessment and plan (1) Osteomyelitis of left foot: Status: Acute Assessment and plan: Open wound with imaging clearly demonstrating osteomyelitis and what appears to be a fracture of left calcaneus. Case reviewed with Dr. Cartagena and amputation indicated. I did discuss this with Mr. Pratt. [facility] as concerned about bills, but okay to stay here if [facility] not an option. Started on vanco and cefemepime to cover Staff and pseudomonas, I agree this is prudent on foot wound Culture taken of drainage of foot wound. Initial WBC, BP, CRP all c/w sepsis. Blood pressure came up with a little fluid. He is being monitored closely in ICU I made him NPO in case surgery today (10/20). (2) Peripheral neuropathy: Status: Chronic Assessment and plan: likely alcoholic. (3) H/O alcohol abuse: Status: Resolved Assessment and plan: stable in remission per report. (4) Hypertension: Status: Chronic Assessment and plan: Holding BP meds for now given initial hypotension. Will add back if BP continues to climb. (5) COPD (chronic obstructive pulmonary disease): Status: Chronic Assessment and plan: Not active, only on PRN GENA. Support smoking cessation (6) Hyponatremia: Status: Acute Assessment and plan: This has been chronic. MIld currently. Follow (7) Anemia: Status: Chronic Assessment and plan: H/o pancytopenia, which has improved, likely with cessation of alcohol. Still mild anemia, follow. (8) Orthostatic hypotension: Status: Resolved Assessment and plan: history of orthostatic hypotension on midodrine. I wonder if we could cut the blood pressure medications and not need this, but will defer for now, continue. (9) Insomnia: Status: Acute Assessment and plan: Up to 300mg trazodone. Will offer short term zolpidem as alternative while inpaitent. (10) DVT prophylaxis: Status: Acute Assessment and plan: He should get enoxaparin, but holding this morning, SCDs until decision made about surgery today (11) Discharge planning issues: Status: Acute Assessment and plan: [facility] with [facility] here. Reported full code in ED but h/o DNR/DNI after palliative visit. Will clarify but full code for now. He is being monitored in ICU. History of Present Illness History of Present Illness Chief Complaint: general weakness, dizzy Narrative: 81 yo M with peripheral neuropathy, alcohol use disorder in remission, chronic wound on his left heel was trying to make his way down from his apartment on [address] [place] and he felt lightheaded like he would pass out. He has this frequently (and is prescribed midodrine) but this was severe. He approached EMS and they took his blood pressure at 70/40 and he was brought to the ED. He cannot feel his feet related to neuropathy, and has no pain in the wound. He was getting wound care weekly and follow up with podiatry through the [facility] and was using medi-honey. He has had a wound since a pressure sore opened up while at [facility] in July 2021. He denies fever but he has been getting night sweats and has had poor appetite for the past several days. No trauma reported to that foot. He received 250ml fluid bolus in while en route and an additional liter in the ED and dizziness has improved. Draining air-filled heal wound noted in the ED. Review of Systems Constitutional Constitutional: Reports anorexia, Reports chills, Reports difficulty sleeping (wants something else, taking extra trazodone and not working well), Denies fever(s), Denies headache(s), Reports lethargy, Reports night sweats, Reports poor appetite and Denies weakness Eyes Eyes: Denies change in vision and Denies irritation ENT Ears, Nose, Mouth, and Throat: Denies dizziness, Denies headache(s), Denies nasal congestion, Denies nasal discharge and Denies sore throat Cardiovascular Cardiovascular: Denies chest pain, Reports leg edema, Denies palpitations and Denies orthopnea Respiratory Respiratory: Denies cough, Denies excessive phlegm production and Denies wheezing Gastrointestinal Gastrointestinal: Denies abdominal pain, Denies heartburn, Reports diarrhea (loose stools starting today x 2) and Denies vomiting Genitourinary Genitourinary: Denies hematuria, Denies dysuria and Denies urinary incontinence Musculoskeletal Musculoskeletal: Denies arthralgias Integumentary/Breasts Skin/Breast: Denies rash and Reports skin ulcer Neurologic Neurologic: Denies confusion, Denies dizziness, Denies headache(s), Denies sensory deficit and Denies weakness Psychiatric Psychiatric: Denies confusion and Denies mood swings Endocrine Endocrine: Denies palpitations Hematologic/Lymphatic Hematologic/Lymphatic: Denies easy bleeding Allergic/Immunologic Allergic/Immunologic: Denies wheezing PFSH All Active Problems (Updated 10/20/21 @ 01:55 by Dontae Galdamez) Anemia (Chronic) Osteomyelitis of left foot (Acute) DNR (do not resuscitate) (Acute) Health insurance with [facility] [employer] (Acute) Acute exacerbation of chronic obstructive pulmonary disease (COPD) (Acute) Pneumonia (Acute) Wernicke encephalopathy (Acute) Insomnia (Acute) Intention tremor (Chronic) COPD exacerbation (Acute) Hypertension (Chronic) Pain (Acute) Syncope (Acute) Fracture of rib of left side (Chronic) Laceration of right thumb (Acute) Thoracic vertebral fracture (Acute) Peripheral neuropathy (Chronic) Peripheral vertigo of both ears (Acute) Stenosis of right internal carotid artery (Acute) Discharge planning issues (Acute) DVT prophylaxis (Acute) Dizziness (Acute) Chest pain (Acute) Alcohol abuse (Chronic) Community acquired pneumonia (Acute) COPD (chronic obstructive pulmonary disease) (Chronic) Hyponatremia (Acute) Pancytopenia (Acute) Medical History Alcohol abuse GERD (gastroesophageal reflux disease) HTN (hypertension) Hx of hyperlipidemia Orthostatic hypotension Stenosis of both internal carotid arteries Vertigo Surgical History Fracture of right hip pinning Hx of cholecystectomy Social History (Updated 10/20/21 @ 01:45 by Dontae Galdamez) Smoking/Tobacco Use Status: Current every day Tobacco Type: cigars Smoking risk assessment performed?: Yes Alcohol Intake: former Drug use: Never Substance use type: does not use Do you feel safe at home: Yes Do you feel safe in your relationship?: Yes Additional Social history: Lives in his own apartment, [place] in [facility] Allergies and Home Medications Allergies Allergy/AdvReac Type Severity Reaction Status Date / Time No Known Allergies Allergy Verified 10/19/21 19:37 Home Medications Medication Instructions Recorded Confirmed Type amlodipine 10 mg tablet 10 mg PO DAILY 10/25/14 07/31/21 History omeprazole 20 mg capsule,delayed 40 mg PO DAILY 10/25/14 10/19/21 History release aspirin 81 mg chewable tablet 81 mg PO DAILY 02/24/16 10/19/21 History (Children's Aspirin) atorvastatin 10 mg tablet 10 mg PO DAILY 02/24/16 10/19/21 History loratadine 10 mg tablet 10 mg PO DAILY 06/07/20 10/19/21 History lisinopril 10 mg tablet 10 mg PO QPM #0 tabs 07/11/20 10/19/21 Rx potassium chloride 20 mEq 20 meq PO DAILY #30 tabs 07/11/20 10/19/21 Rx tablet,extended release tamsulosin 0.4 mg capsule 0.4 mg PO HS #0 caps 07/11/20 10/19/21 Rx trazodone 100 mg tablet 200 mg PO HS #0 tabs 07/11/20 10/19/21 Rx Acetaminophen [Tylenol] 1,000 mg PO BID ##0 07/17/21 Rx Inhaler, Assist Devices [Pocket 1 ea miscellaneous DIRECTED ##0 07/17/21 Rx Chamber] furosemide 20 mg tablet 20 mg PO DAILY #0 tabs 07/17/21 10/19/21 Rx midodrine 5 mg tablet 2.5 mg PO TID #0 tabs 07/17/21 07/31/21 Rx prednisone 20 mg tablet 40 mg PO DAILY #0 tabs 07/17/21 Rx albuterol sulfate 90 mcg/actuation 2 puff inhalation Q6H PRN 07/30/21 10/19/21 History aerosol inhaler magnesium oxide 400 mg (241.3 mg 400 mg PO BID 07/30/21 07/31/21 History magnesium) tablet nitroglycerin 0.4 mg sublingual 0.4 mg sublingual Q5M PRN 07/30/21 10/19/21 History tablet (Nitrostat) Exam Narrative Exam Narrative: GEN: Alert and oriented x 3, pleasant and cooperative, gives linear history. No acute distress at rest. HEENT: Head atraumatic. Conjunctiva clear, no icterus. PEERL, EOMI. no rhinorrhea. MMM, OP benign. Neck is supple with no masses or lymphadenopathy, trachea midline LUNGS: CTAB with normal effort CV: RRR with no murmurs, gallops, or rubs. ABD: +BS, soft, NT/ND EXT: no cyanosis, clubbing. 1+ edema left ankle/skin. Toes cool, cap refill ~3 sec belgica MSK: No joint redness or swelling NEURO: CN 2-12 grossly intact. Normal movement of 4 extremities. Normal speech and coordination. mild tremor with arms extended. SKIN: Warm, somewhat clammy. No rashs. wound was examined, cultured, dressed and wrapped in ED, I did not take it down again PSYCH: normal mood and affect Results Imaging Imaging Studies: CT left foot: Calcaneal osteomyelitis.? Overlying ulceration.? Pathologic appearing calcaneal fracture may be due to a combination of severe demineralization and osteomyelitis, unclear if a traumatic component was present clinically. Labs Result diagrams: 10/19/21 20:20 10/19/21 20:20 Labs: Laboratory Results - last 24 hr 10/19/21 10/19/21 10/19/21 20:20 20:20 20:20 WBC 12.83 H RBC 3.45 L Hgb 10.6 L Hct 31.5 L MCV 91 MCH 30.7 MCHC 33.7 RDW 12.5 Plt Count 312 MPV 10.1 Immature Gran % 0.4 Neutrophils % 83.3 Lymphocytes % 7.7 Monocytes % 8.0 Eosinophils % 0.3 Basophils % 0.3 Nucleated RBC % 0.0 Absolute Neutrophils 10.69 H Absolute Lymphocytes 0.99 L Absolute Monocytes 1.03 H Absolute Eosinophils 0.04 Absolute Basophils 0.04 ESR VBG Lactate 1.6 H Sodium 127 L Potassium 3.8 Chloride 94 L Carbon Dioxide 25.0 Anion Gap 8.0 BUN 18 Creatinine 1.3 Estimated GFR/1.73 m2 53.25 Glucose 100 Calcium 8.5 Total Bilirubin 0.6 AST 38 H ALT 34 Alkaline Phosphatase 170 H C-Reactive Protein 13.70 H Total Protein 7.3 Albumin 1.9 L Urine Color Urine Clarity Urine pH Ur Specific [place] Urine Protein Urine Ketones Urine Blood Urine Nitrite Urine Bilirubin Urine Urobilinogen Ur Leukocyte Esterase Urine Glucose COVID-19 Source SARS-CoV-2 (PCR) 10/19/21 10/19/21 10/19/21 20:20 20:21 22:30 WBC RBC Hgb Hct MCV MCH MCHC RDW Plt Count MPV Immature Gran % Neutrophils % Lymphocytes % Monocytes % Eosinophils % Basophils % Nucleated RBC % Absolute Neutrophils Absolute Lymphocytes Absolute Monocytes Absolute Eosinophils Absolute Basophils ESR 44 H VBG Lactate Sodium Potassium Chloride Carbon Dioxide Anion Gap BUN Creatinine Estimated GFR/1.73 m2 Glucose Calcium Total Bilirubin AST ALT Alkaline Phosphatase C-Reactive Protein Total Protein Albumin Urine Color Yellow Urine Clarity Clear Urine pH 6.0 Ur Specific [place] 1.010 Urine Protein Negative Urine Ketones Negative Urine Blood Negative Urine Nitrite Negative Urine Bilirubin Negative Urine Urobilinogen 1.0 H Ur Leukocyte Esterase Negative Urine Glucose Negative COVID-19 Source Nasal/Nares SARS-CoV-2 (PCR) Negative Last Vital Signs Temp 36.3 C L 10/19/21 19:27 Pulse 90 10/19/21 19:27 Resp 20 10/19/21 19:35 BP 114/51 L 10/19/21 19:27 Pulse Ox 96 10/19/21 19:27
[2021-10-20 05:38] LABS: Abs Immature Grans 0.04 10^3/uL (0.0-0.06); Absolute Basophil Count 0.05 10^3/uL (0.0-0.2); Absolute Eosinophil Count 0.14 10^3/uL (0.0-0.7); Absolute Lymphocyte Count 1.46 10^3/uL (1.2-3.4); Absolute Monocyte Count 0.94 10^3/uL (0.1-0.8); Basophils % 0.4; Eosinophils % 1.1; HCT 30.8 % (40.0-50.0); HGB 10.3 g/dL (13.5-17.5); Immature Grans % 0.3; Lymphocytes % 11.8; MCH 30.4 pg (27.0-33.0); MCHC 33.4 % (32.0-36.0); MCV 91 fL (80-95); MPV 10.1 fL (8.0-11.0); Monocytes % 7.6; Neutrophils % 78.8; Platelet Count 299 10^3/uL (130-400); RBC 3.39 10^6/uL (4.36-5.78); RDW 12.6 % (11.8-14.1); RDW-SD 41.8 fL; WBC 12.36 10^3/uL (4.4-10.8)
[2021-10-20 05:42] LABS: Absolute Neutrophil Count 9.74 10^3/uL (1.2-6.7)
--- NOTE | 2021-10-20 06:11 | NUR.NOTE ---
Nursing Note:Unable to give 0600 Vancomycin on time due to not being able to get medication. I called surveillance supervisor to assist with obtaining a 750 mg vanco in 250 ml bag. surveillance supervisor states I needed to get medication, which I attempted. I was only able to pull 1g after trying to override and pull from multiple pyxis. I cannot accurately dose 750 mg in a 1g vial. Due to not being able to access proper dosage of medication, Pt. will have to receive abx late until our pharmacy can come in and assist.
--- NOTE | 2021-10-20 06:51 | OCONE_ITS ---
Date of service: 10/20/21 Time of Service: 07:30 History of Present Illness History of Present Illness Chief Complaint: Left Heel Wound Narrative: Tyler is a 81-year-old who presented to EMS at an event in [facility] with not feeling well. He was found to be hypotensive and brought to the emergency department. At the emergency department his blood pressure was normalized and heart rate was normal. However, he felt ill and had a notably draining, purulent wound to his left heel. Reportedly, this has been going on for some months after a prolonged stay at the [facility] following an injury to his back. He has been managed by podiatry at the [facility]. He has had some home dressing changes but is not walking on it normally. He has no sensation in his feet due to peripheral neuropathy. He is largely wheelchair-bound but does stand for transfers. His lack of ambulation is mostly related to chronic back pain and multiple back injuries and generalized weakness. He does report having some chills but no chema fever. No chest pain or shortness of breath. Consults Consult date: 10/19/21 Requesting physician: Dontae Galdamez Consult Reason Left Heel Wound Assessment and Plan Assessment and plan (1) Osteomyelitis of left foot: Status: Acute Assessment and plan: Tyler is a 81-year-old who has severe peripheral neuropathy and unfortunately developed a pressure ulcer over the posterior aspect of his left heel which now is full-thickness down to bone and tendon with obvious osteomyelitis of the left calcaneus. There is exposed tendon and exposed bone. 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 There is gross purulence about the left heel and therefore this point, I would recommend local wound care. I performed a bone biopsy to send for culture. Previous wound culture of the purulence was sent last night for emergency department. I also performed basic wound care by irrigating the wound site and packing with absorbent padding followed by SHAHNAZ and Brennen. I would recommend formal wound care consult. I would continue IV antibiotics. He does not appear to be unstab le with his vitals although he does have a severe infection about the left heel. Unfortunately, the best neck step for more definitive treatment would be an amputation. However, this does have significant consequences to it especially for notably gentleman with weakness who is already wheelchair-bound. He takes most of his care at [facility] and [facility] or [facility] for further definitive management. At this point, we should continue with conservative treatments and follow the cultures with appropriate biotics. If he becomes unstable then we may have to consider amputation as definitive treatment for the infection but I would prefer to avoid this until he can get [facility]. I reviewed all this with Tyler. Review of Systems All systems reviewed & are unremarkable except as noted in HPI and below PFSH All Active Problems B12 deficiency anemia (Acute) Anemia (Chronic) Osteomyelitis of left foot (Acute) DNR (do not resuscitate) (Acute) Health insurance with [employer] (Acute) Acute exacerbation of chronic obstructive pulmonary disease (COPD) (Acute) Pneumonia (Acute) Wernicke encephalopathy (Acute) Insomnia (Acute) Intention tremor (Chronic) COPD exacerbation (Acute) Hypertension (Chronic) Pain (Acute) Syncope (Acute) Fracture of rib of left side (Chronic) Laceration of right thumb (Acute) Thoracic vertebral fracture (Acute) Peripheral neuropathy (Chronic) Peripheral vertigo of both ears (Acute) Stenosis of right internal carotid artery (Acute) Discharge planning issues (Acute) DVT prophylaxis (Acute) Dizziness (Acute) Chest pain (Acute) Alcohol abuse (Chronic) Community acquired pneumonia (Acute) COPD (chronic obstructive pulmonary disease) (Chronic) Hyponatremia (Acute) Pancytopenia (Acute) Medical History Alcohol abuse GERD (gastroesophageal reflux disease) HTN (hypertension) Hx of hyperlipidemia Orthostatic hypotension Stenosis of both internal carotid arteries Vertigo Surgical History Fracture of right hip pinning Hx of cholecystectomy Social History Smoking/Tobacco Use Status: Current every day Tobacco Type: cigars Smoking risk assessment performed?: Yes Alcohol Intake: former Drug use: Never Substance use type: does not use Do you feel safe at home: Yes Do you feel safe in your relationship?: Yes Additional Social history: Lives in his own apartment, [place] in [facility] Exam Narrative Exam Narrative: Tyler is resting in the bed comfortably. He is in no acute distress and alert and orient x3. Evaluation of the left leg shows a large full-thickness pressure ulcer over the posterior aspect of the heel. Measures roughly 3 x 3 cm although it is irregular in shape. It is full-thickness down to the calcaneus with exposed cancellous bone and exposed Achilles tendon at the superior and medial edge. Pressure to the calcaneus and the hindfoot causes some expression of a dark green purulent material with some malodor. It is hard to exactly define the amount of tracking but it does seem to track along the plantar surface of the calcaneus. The bones region is soft. A biopsy of the bone was taken and there is abundant bleeding from the bone biopsy site. He has excessive ankle dorsiflexion although he does have active plantar flexion intact. He has no active sensation from about the mid calf down. He does have a faintly palpable PT pulse. DP pulses difficult to appreciate. Very minimal surrounding erythema. No tracking. No crepitus to palpation in the leg itself. No pain to palpation of the knee. Results Last Vital Signs Temp 36.8 C 10/20/21 04:00 Pulse 84 10/20/21 05:24 Resp 26 H 10/20/21 05:40 BP 114/45 L 10/20/21 05:24 Pulse Ox 92 10/20/21 05:40 Labs Result diagrams: 10/20/21 05:27 10/20/21 12:15 Labs: Laboratory Results - last 24 hr 10/19/21 10/19/21 10/19/21 20:20 20:20 20:20 WBC 12.83 H RBC 3.45 L Hgb 10.6 L Hct 31.5 L MCV 91 MCH 30.7 MCHC 33.7 RDW 12.5 Plt Count 312 MPV 10.1 Immature Gran % 0.4 Neutrophils % 83.3 Lymphocytes % 7.7 Monocytes % 8.0 Eosinophils % 0.3 Basophils % 0.3 Nucleated RBC % 0.0 Absolute Neutrophils 10.69 H Absolute Lymphocytes 0.99 L Absolute Monocytes 1.03 H Absolute Eosinophils 0.04 Absolute Basophils 0.04 ESR VBG Lactate 1.6 H Sodium 127 L Potassium 3.8 Chloride 94 L Carbon Dioxide 25.0 Anion Gap 8.0 BUN 18 Creatinine 1.3 Estimated GFR/1.73 m2 53.25 Glucose 100 Calcium 8.5 Total Bilirubin 0.6 AST 38 H ALT 34 Alkaline Phosphatase 170 H C-Reactive Protein 13.70 H Total Protein 7.3 Albumin 1.9 L Urine Color Urine Clarity Urine pH Ur Specific [place] Urine Protein Urine Ketones Urine Blood Urine Nitrite Urine Bilirubin Urine Urobilinogen Ur Leukocyte Esterase Urine Glucose COVID-19 Source SARS-CoV-2 (PCR) 10/19/21 10/19/21 10/19/21 20:20 20:21 22:30 WBC RBC Hgb Hct MCV MCH MCHC RDW Plt Count MPV Immature Gran % Neutrophils % Lymphocytes % Monocytes % Eosinophils % Basophils % Nucleated RBC % Absolute Neutrophils Absolute Lymphocytes Absolute Monocytes Absolute Eosinophils Absolute Basophils ESR 44 H VBG Lactate Sodium Potassium Chloride Carbon Dioxide Anion Gap BUN Creatinine Estimated GFR/1.73 m2 Glucose Calcium Total Bilirubin AST ALT Alkaline Phosphatase C-Reactive Protein Total Protein Albumin Urine Color Yellow Urine Clarity Clear Urine pH 6.0 Ur Specific [place] 1.010 Urine Protein Negative Urine Ketones Negative Urine Blood Negative Urine Nitrite Negative Urine Bilirubin Negative Urine Urobilinogen 1.0 H Ur Leukocyte Esterase Negative Urine Glucose Negative COVID-19 Source Nasal/Nares SARS-CoV-2 (PCR) Negative 10/20/21 10/20/21 05:27 05:27 WBC 12.36 H RBC 3.39 L Hgb 10.3 L Hct 30.8 L MCV 91 MCH 30.4 MCHC 33.4 RDW 12.6 Plt Count 299 MPV 10.1 Immature Gran % 0.3 Neutrophils % 78.8 Lymphocytes % 11.8 Monocytes % 7.6 Eosinophils % 1.1 Basophils % 0.4 Nucleated RBC % 0.0 Absolute Neutrophils 9.74 H Absolute Lymphocytes 1.46 Absolute Monocytes 0.94 H Absolute Eosinophils 0.14 Absolute Basophils 0.05 ESR VBG Lactate 2.0 H Sodium Potassium Chloride Carbon Dioxide Anion Gap BUN Creatinine Estimated GFR/1.73 m2 Glucose Calcium Total Bilirubin AST ALT Alkaline Phosphatase C-Reactive Protein Total Protein Albumin Urine Color Urine Clarity Urine pH Ur Specific [place] Urine Protein Urine Ketones Urine Blood Urine Nitrite Urine Bilirubin Urine Urobilinogen Ur Leukocyte Esterase Urine Glucose COVID-19 Source SARS-CoV-2 (PCR) Imaging Imaging Studies: X-ray of the left calcaneus previously performed in August shows some mild irregularity of the calcaneus but no soft tissue calcifications nor air. CT scan of the left lower extremity performed last night demonstrates significant signs of osteomyelitis of the calcaneus throughout this entire portion plantarly. There is some tracking soft tissue air and changes seen on the plantar surface of the calcaneus. Additionally, there appears to be a chronic fracture of the tuberosity and plantar portion of the calcaneus. No air tracking up the leg or along fascial planes.
[2021-10-20] MEDS: Lactated Ringers 1,000 ML 1000 ML IV (08:23)
--- NOTE | 2021-10-20 08:23 | PDOC.CMIN ---
- If Service Date Differs Date of service: 10/20/21 Time of Service: 08:23 Care Management Initial Assess REASON FOR HOSPITALIZATION:: Sepsis, osteomyelitis. PAST MEDICAL HISTORY/PAST SURGICAL HISTORY:: All Active Problems: Anemia (Chronic), Osteomyelitis of left foot (Acute),. DNR (do not resuscitate) (Acute), Health insurance with Department of [employer] (Acute), Acute exacerbation of chronic obstructive pulmonary disease (COPD) (Acute), Pneumonia (Acute), Wernicke encephalopathy (Acute), Insomnia (Acute), Intention tremor (Chronic),. COPD exacerbation (Acute), Hypertension (Chronic), Pain (Acute), Syncope (Acute), Fracture of rib of left side (Chronic), Laceration of right thumb (Acute), Thoracic vertebral fracture (Acute), Peripheral neuropathy (Chronic), Peripheral vertigo of both ears (Acute), Stenosis of right internal carotid artery (Acute), Discharge planning issues (Acute), DVT prophylaxis (Acute), Dizziness (Acute), Chest pain (Acute), Alcohol abuse (Chronic),. Community acquired pneumonia (Acute), COPD (chronic obstructive pulmonary disease) (Chronic), Hyponatremia (Acute), and Pancytopenia (Acute). Medical History: Alcohol abuse, GERD (gastroesophageal reflux disease),. HTN (hypertension), Hx of hyperlipidemia, Orthostatic hypotension, Stenosis of both internal carotid arteries, and Vertigo. Surgical History: Fracture of right hip - pinning and Hx of cholecystectomy. PREVIOUS FUNCTIONAL STATUS/SOCIAL/FAMILY SUPPORTS:: Tyler lives alone in [facility] in [facility]. Tyler is retired but worked 50 years in the [employer]. He has lots of friends who are supportive of him but does not have any family locally. Tyler is independent with his ADLs at baseline. CURRENT FUNCTIONAL STATUS:: Tyler is lying in bed when comes to meet with him. He shares he had Home Health nursing 3 x a week for dressing changes but he cancelled the service prior to the September 24 weekend, as he was going out of town on vacation. He returned home sooner than originally planned but Home Health services were not reinstated. ADVANCE DIRECTIVES:: None on file; patient declines Advance Directives. Has patient been provided with info about the portal/API?: Yes Did the patient sign up for the portal?: No CODE STATUS:: Full Code INSURANCE COVERAGE / FINANCIAL ISSUES:: [employer]. CURRENT HOME/COMMUNITY SERVICES/EQUIPMENT:: No home/community services currently. Tyler owns a 4 wheel walker, electric wheelchair, and shower chair. PRIMARY CARE PHYSICIAN:: Brad Morrow MD ([facility]). POTENTIAL DISCHARGE NEEDS:: Follow up appointments with PCP, orthopaedic surgeon, Home Health services, and plan of care. PATIENT/FAMILY EDUCATION NEEDS:: Review discharge instructions; discuss Ask Me Three. ANTICIPATED BARRIERS TO DISCHARGE:: No anticipated barriers at this time. TRANSPORTATION:: Undetermined as it is dependent on disposition. PLAN:: Tyler will be transferred to the [facility] when a bed becomes available. He will follow up with his PCP, orthopaedic surgeon, and plan of care as directed upon discharge from the hospital. CM will continue to follow.
[2021-10-20] MEDS: VANCOMYCIN/WATER (PEG) 1.25 GM/250 ML BAG IV (08:29)
[2021-10-20 09:20] LABS: Source Nasal/Nares
[2021-10-20 10:11] LABS: COVID-19 PCR Negative (Negative)
--- NOTE | 2021-10-20 10:41 | DI.VRAD_ITS ---
PROCEDURE INFORMATION: Exam: XR Chest Exam date and time: 10/20/2021 9:29 AM Age: 81 years old Clinical indication: Other: Cough, fever TECHNIQUE: Imaging protocol: Radiologic exam of the chest. Views: 1 view. COMPARISON: CR XR PORTABLE CHEST AP 07/16/2021 3:53 PM FINDINGS: Lungs: Opacities in the left mid lung and both bases may represent atelectasis or pneumonia.. Pleural spaces: Calcified pleural plaques may represent exposure to asbestos Heart/Mediastinum: Unremarkable. No cardiomegaly. Bones/joints: Unremarkable. IMPRESSION: Opacities in the left mid lung and both bases may represent atelectasis or pneumonia.. Dictated and Authenticated by: Josse Hernandez MD. Ordering:BARI Alvarado MD
[2021-10-20] MEDS: Atorvastatin 10 MG TAB PO (10:47)
[2021-10-20] MEDS: Acetaminophen 500 MG TAB 1000 MG PO ×2 (10:47→14:27)
[2021-10-20] MEDS: Midodrine 2.5 MG TAB PO ×4 (10:47→21:04)
[2021-10-20] MEDS: Loratidine 10 MG TAB PO (10:48)
[2021-10-20] MEDS: Potassium Chloride 20 MEQ TABCR PO (10:48)
[2021-10-20] MEDS: Magnesium Oxide 400 MG TAB PO ×2 (10:50→21:04)
[2021-10-20] MEDS: CEFEPIME 2 GM in Normal Saline 100 ML IVPB (11:00)
[2021-10-20 12:26] LABS: Lactate 1.7 mmol/L (0.6-1.4)
[2021-10-20 13:23] LABS: Sodium 132 mmol/L (136-145)
--- NOTE | 2021-10-20 13:39 | W.PM.PROGNOT ---
Date of Service Date of service: 10/20/21 Time of Service: 10:55 Assessment and Plan Assessment and plan (1) Osteomyelitis of left foot: Status: Acute Assessment and plan: With an open wound on L heel. Borderline for meeting sepsis criteria, but not quite meeting them this morning. Discussed with Dr Cartagena, who feels that the L foot should be amputated but not emergently and would ideally be done at the [facility]. This is also the patient's preference. Continue empiric vancomycin/cefepime. No bed at the [facility] today. We were asked to call back tomorrow. The MD is not keeping a list of transfers. Per Dr Cartagena, we could potentially treat the patient with IV abx and [facility], depending on how he progresses. BPs still borderline. Continue IVF (getting boluses). Can probably transfer out of the ICU later today if hypotension does not recur. (2) Orthostatic hypotension: Status: Resolved Assessment and plan: Will bolus another 500 cc of LR and check orthostatics. Continue midodrine. Hold BP meds. (3) Peripheral neuropathy: Status: Chronic Assessment and plan: Combination of B12 deficiency and alcoholic. Replete B12. Likely contributing to the origin of the wound on L ankle. (4) H/O alcohol abuse: Status: Resolved Assessment and plan: Last drink over 1.5 years ago, per patient. He is tremulous, but states that this is his chronic tremor. (5) Hypertension: Status: Chronic Assessment and plan: Continue to hold antihypertensives given orthostasis and hypotension. (6) Hyponatremia: Status: Acute Assessment and plan: Improved to 132 just after 1 L of LR. His baseline is closer to 135. Recheck chemistry in an. (7) Anemia: Status: Chronic Assessment and plan: H/o B12 deficiency abd EtOH abuse. Replete B12. No evidence of bleeding at this time. (8) B12 deficiency anemia: Status: Acute Assessment and plan: As above (9) DVT prophylaxis: Status: Acute Assessment and plan: Start lovenox. (10) Discharge planning issues: Status: Acute Assessment and plan: Transfer to [facility] when bed available vs outpatient follow up - depending on progress. Likely transfer out of ICU later this afternoon or tomorrow am, depending on recurrence of symptoms. Subjective Subjective Interval history since last seen: Mr Pratt states he is feeling better. He still has a pain in his L heel. Denies dizziness this morning, CP, SOB, nausea. Exam Narrative Exam Narrative: General: Pleasant tremulous elderly male who is A&Ox3, NAD HEENT: EOMI, MMM Heart: RRR with occasional extra beats Lungs: CTAB Abdomen: soft, nontender, nondistended Extremities: L foot and ankle dressed - c/d/i. L foot is warm. I am not clearly finding a pedal pulse. Objective Last Vital Signs Temp 36.8 C 10/20/21 11:36 Pulse 83 10/20/21 12:01 Resp 23 10/20/21 12:01 BP 110/56 L 10/20/21 12:01 Pulse Ox 90 L 10/20/21 11:36 Laboratory Results - last 24 hr 10/19/21 10/19/21 10/19/21 20:20 20:20 20:20 WBC 12.83 H RBC 3.45 L Hgb 10.6 L Hct 31.5 L MCV 91 MCH 30.7 MCHC 33.7 RDW 12.5 Plt Count 312 MPV 10.1 Immature Gran % 0.4 Neutrophils % 83.3 Lymphocytes % 7.7 Monocytes % 8.0 Eosinophils % 0.3 Basophils % 0.3 Nucleated RBC % 0.0 Absolute Neutrophils 10.69 H Absolute Lymphocytes 0.99 L Absolute Monocytes 1.03 H Absolute Eosinophils 0.04 Absolute Basophils 0.04 ESR VBG Lactate 1.6 H Sodium 127 L Potassium 3.8 Chloride 94 L Carbon Dioxide 25.0 Anion Gap 8.0 BUN 18 Creatinine 1.3 Estimated GFR/1.73 m2 53.25 Glucose 100 Calcium 8.5 Total Bilirubin 0.6 AST 38 H ALT 34 Alkaline Phosphatase 170 H C-Reactive Protein 13.70 H Total Protein 7.3 Albumin 1.9 L Urine Color Urine Clarity Urine pH Ur Specific King[place] Urine Protein Urine Ketones Urine Blood Urine Nitrite Urine Bilirubin Urine Urobilinogen Ur Leukocyte Esterase Urine Glucose COVID-19 Source SARS-CoV-2 (PCR) 10/19/21 10/19/21 10/19/21 20:20 20:21 22:30 WBC RBC Hgb Hct MCV MCH MCHC RDW Plt Count MPV Immature Gran % Neutrophils % Lymphocytes % Monocytes % Eosinophils % Basophils % Nucleated RBC % Absolute Neutrophils Absolute Lymphocytes Absolute Monocytes Absolute Eosinophils Absolute Basophils ESR 44 H VBG Lactate Sodium Potassium Chloride Carbon Dioxide Anion Gap BUN Creatinine Estimated GFR/1.73 m2 Glucose Calcium Total Bilirubin AST ALT Alkaline Phosphatase C-Reactive Protein Total Protein Albumin Urine Color Yellow Urine Clarity Clear Urine pH 6.0 Ur Specific [place] 1.010 Urine Protein Negative Urine Ketones Negative Urine Blood Negative Urine Nitrite Negative Urine Bilirubin Negative Urine Urobilinogen 1.0 H Ur Leukocyte Esterase Negative Urine Glucose Negative COVID-19 Source Nasal/Nares SARS-CoV-2 (PCR) Negative 10/20/21 10/20/21 10/20/21 05:27 05:27 09:12 WBC 12.36 H RBC 3.39 L Hgb 10.3 L Hct 30.8 L MCV 91 MCH 30.4 MCHC 33.4 RDW 12.6 Plt Count 299 MPV 10.1 Immature Gran % 0.3 Neutrophils % 78.8 Lymphocytes % 11.8 Monocytes % 7.6 Eosinophils % 1.1 Basophils % 0.4 Nucleated RBC % 0.0 Absolute Neutrophils 9.74 H Absolute Lymphocytes 1.46 Absolute Monocytes 0.94 H Absolute Eosinophils 0.14 Absolute Basophils 0.05 ESR VBG Lactate 2.0 H Sodium Potassium Chloride Carbon Dioxide Anion Gap BUN Creatinine Estimated GFR/1.73 m2 Glucose Calcium Total Bilirubin AST ALT Alkaline Phosphatase C-Reactive Protein Total Protein Albumin Urine Color Urine Clarity Urine pH Ur Specific [place] Urine Protein Urine Ketones Urine Blood Urine Nitrite Urine Bilirubin Urine Urobilinogen Ur Leukocyte Esterase Urine Glucose COVID-19 Source Nasal/Nares SARS-CoV-2 (PCR) Negative 10/20/21 10/20/21 12:15 12:15 WBC RBC Hgb Hct MCV MCH MCHC RDW Plt Count MPV Immature Gran % Neutrophils % Lymphocytes % Monocytes % Eosinophils % Basophils % Nucleated RBC % Absolute Neutrophils Absolute Lymphocytes Absolute Monocytes Absolute Eosinophils Absolute Basophils ESR VBG Lactate 1.7 H Sodium 132 L Potassium Chloride Carbon Dioxide Anion Gap BUN Creatinine Estimated GFR/1.73 m2 Glucose Calcium Total Bilirubin AST ALT Alkaline Phosphatase C-Reactive Protein Total Protein Albumin Urine Color Urine Clarity Urine pH Ur Specific [place] Urine Protein Urine Ketones Urine Blood Urine Nitrite Urine Bilirubin Urine Urobilinogen Ur Leukocyte Esterase Urine Glucose COVID-19 Source SARS-CoV-2 (PCR) Multi-Disciplinary Checklist Lines/Tubes CENTRAL LINE: no ARTERIAL LINE: no DE [place]: no ENDOTRACHEAL TUBE: no ICU Maintenance GLUCOSE 140-180mg/dL: yes NUTRITION AT GOAL: yes PRESSURE ULCER: no RESTRAINTS: no ANTIBIOTICS(if yes, consider Stewardship): Yes Social Issues FAMILY UPDATED: no, Reason/Intervention: Patient is able to update family PT/OT: yes GOALS/DISPOSITION/BIAS CUTTER: yes CODE STATUS: Full Prophylaxis DVT PROPHYLAXIS: yes GI PROPHYLAXIS: no
[2021-10-20] MEDS: Enoxaparin 40 MG/0.4 ML SYR SC (14:27)
[2021-10-20] MEDS: Lactated Ringers 500 ML IV (14:28)
[2021-10-20 15:20] LABS: C Diff PCR Negative (Negative)
[2021-10-20] MEDS: traZODone 50 MG TAB 300 MG PO (21:04)
[2021-10-20] MEDS: Tamsulosin 0.4 MG CAPCR PO (21:05)
[2021-10-21] VITALS (28 sets, daily range): BP systolic 89–142; BP diastolic 43–91; PULSE 73–102; RESP 16–30; TEMP 35.4–37.2; O2SAT 87–97
[2021-10-21] MEDS: CEFEPIME 2 GM in Normal Saline 100 ML IVPB ×3 (00:07→19:57)
[2021-10-21] MEDS: VANCOMYCIN/WATER (PEG) 1.25 GM/250 ML BAG IV ×2 (02:53→21:00)
[2021-10-21 06:03] LABS: Abs Immature Grans 0.05 10^3/uL (0.0-0.06); Absolute Basophil Count 0.04 10^3/uL (0.0-0.2); Absolute Eosinophil Count 0.09 10^3/uL (0.0-0.7); Absolute Lymphocyte Count 0.89 10^3/uL (1.2-3.4); Absolute Monocyte Count 0.74 10^3/uL (0.1-0.8); Absolute Neutrophil Count 9.03 10^3/uL (1.2-6.7); Basophils % 0.4; Eosinophils % 0.8; HCT 28.2 % (40.0-50.0); HGB 9.5 g/dL (13.5-17.5); Immature Grans % 0.5; Lymphocytes % 8.2; MCH 30.5 pg (27.0-33.0); MCHC 33.7 % (32.0-36.0); MCV 91 fL (80-95); MPV 10.4 fL (8.0-11.0); Monocytes % 6.8; Neutrophils % 83.3; Platelet Count 266 10^3/uL (130-400); RBC 3.11 10^6/uL (4.36-5.78); RDW 12.6 % (11.8-14.1); WBC 10.84 10^3/uL (4.4-10.8)
[2021-10-21 06:22] LABS: Anion Gap 6.7 mmol/L (3-11); BUN 13 mg/dL (7-18); CO2 25.3 mmol/L (21.0-32.0); CREATININE 0.8 mg/dL (0.70-1.30); Calcium 8.5 mg/dL (8.5-10.1); Chloride 102 mmol/L (98-107); Glucose 103 mg/dL (74-106); Magnesium 1.5 mg/dL (1.8-2.4); Potassium 3.8 mmol/L (3.5-5.1); Sodium 134 mmol/L (136-145)
[2021-10-21] MEDS: Aspirin E.C. 81 MG TABEC PO (08:29)
[2021-10-21] MEDS: Atorvastatin 40 MG TAB PO (08:29)
[2021-10-21] MEDS: Loratidine 10 MG TAB PO (08:31)
[2021-10-21] MEDS: Magnesium Chloride 64 MG TABCR PO ×3 (08:32→19:58)
[2021-10-21] MEDS: Potassium Chloride 20 MEQ TABCR PO (08:33)
[2021-10-21] MEDS: Midodrine 2.5 MG TAB PO (08:52)
[2021-10-21] MEDS: MAGNESIUM SULFATE 4 GM/100 ML BAG IVPB (09:07)
--- NOTE | 2021-10-21 09:39 | PT.INIE ---
PT Notes Visit Reasons: sepsis,osteomyelitis Inpatient Physical Therapy Evaluation Date: October 21, 2021 Referring Doctor: Jenny Dowd MD PT Orders: PT CONSULT: Limited ability Precautions: Standard, fall risk. Patient Profile/Admitting Diagnosis: Patient is a 81 year old male with peripheral neuropathy, alcohol use disorder in remission, chronic wound on his left heel was trying to make his way down from his apartment on [facility] [address] critical access hospital and he felt lightheaded like he would pass out.? He has this frequently (and is prescribed midodrine) but this was severe.? He approached EMS and they took his blood pressure at 70/40 and he was brought to the ED. He cannot feel his feet related to neuropathy, and has no pain in the wound.? He was getting wound care weekly and follow up with podiatry through the [facility] and was using medi-honey.? He has had a wound since a pressure sore opened up while at [facility] in July 2021.? He denies fever but he has been getting night sweats and has had poor appetite for the past several days.? No trauma reported to that foot. PMHX: PFSH All Active Problems?(Updated 10/20/21 @ 01:55 by Dontae Galdamez) Anemia (Chronic) Osteomyelitis of left foot (Acute) DNR (do not resuscitate) (Acute) Health insurance with [facility] [employer] [facility] (Acute) Acute exacerbation of chronic obstructive pulmonary disease (COPD) (Acute) Pneumonia (Acute) Wernicke encephalopathy (Acute) Insomnia (Acute) Intention tremor (Chronic) COPD exacerbation (Acute) Hypertension (Chronic) Pain (Acute) Syncope (Acute) Fracture of rib of left side (Chronic) Laceration of right thumb (Acute) Thoracic vertebral fracture (Acute) Peripheral neuropathy (Chronic) Peripheral vertigo of both ears (Acute) Stenosis of right internal carotid artery (Acute) Discharge planning issues (Acute) DVT prophylaxis (Acute) Dizziness (Acute) Chest pain (Acute) Alcohol abuse (Chronic) Community acquired pneumonia (Acute) COPD (chronic obstructive pulmonary disease) (Chronic) Hyponatremia (Acute) Pancytopenia (Acute) Medical History? Alcohol abuse GERD (gastroesophageal reflux disease) HTN (hypertension) Hx of hyperlipidemia Orthostatic hypotension Stenosis of both internal carotid arteries Vertigo Surgical History? Fracture of right hip pinningHx of cholecystectomy Social History/Home Situation: Lives alone on the second floor of an apartment building in [facility] with an elevator and an elevator to enter.? Patient is modified independent using his 4 wheeled walker indoors and uses his motorized wheelchair for outdoor ambulation. He has a lady who comes in once or twice a week to perform house chores and laundry. Equipment Owned/DME: Motorized wheelchair, 4WW Subjective:?Tyler is agreeable to PT consult.? Report no significant pain. Is feeling better with regards to his lightheadedness that he experienced at time of admittance Objective:? General Observation: ? Telemetry monitoring in place.? IV left dorsum hand. Left heel wrapped in bandage with drainage noted. Nursing notified. Mental Status: Alert and oriented x3 Pain: 0/10 pain Vital Signs: Orthostatic hypotension: Supine: 125/64, Sit: 105/56, Stand: 90/43 ROM: Right Upper Extremity: ? Shoulder Flexion WFL. Shoulder abduction WFL. Elbow flexion WFL. Wrist flexion WFL. Functional opening and closing of hand WFL. Left Upper Extremity:? Shoulder Flexion WFL. Shoulder abduction WFL. Elbow flexion WFL. Wrist flexion WFL. Functional opening and closing of hand WFL.? Pain at end range of L shoulder ROM. Right Lower Extremity: Hip flexion WFL. Hip abduction WFL. Knee flexion WFL. Ankle dorsiflexion WFL. Ankle plantarflexion WFL. Left Lower Extremity: Hip flexion WFL. Hip abduction WFL. Knee flexion WFL. Ankle dorsiflexion WFL. Ankle plantarflexion WFL. Strength: Right Upper Extremity: Shoulder flexors 4/5. Shoulder abductors 4-/5. Elbow flexors 4/5. Elbow extensors 4/5. Veterinary Surgery Technician strong. Left Upper Extremity: Shoulder flexors 4/5. Shoulder abductors 4-/5. Elbow flexors 4/5. Elbow extensors 4/5. Veterinary Surgery Technician strong. Right Lower Extremity: Hip flexors 4-/5. Hip abductors 4-/5. Knee flexors 4-/5. Knee extensors 4-/5. Ankle dorsiflexors 4-/5. Ankle plantarflexors 4-/5. Left Lower Extremity: Hip flexors 4-/5. Hip abductors 4-/5. Knee flexors 4-/5. Knee extensors 4-/5. Ankle dorsiflexors 4-/5. Ankle plantarflexors 4-/5. Sensation:?Diminished sensation bilateral lower extremities secondary to peripheral neuropathy.? No pain radiation to lower extremities. Bed Mobility/Transfers:? Rolling: Independent Supine to sit: From front wheel walker min assist x1 with HOB at 40 degrees.? Sit to stand: minimal assist of 1 for front wheel walker Stand to sit: standby assist Gait:? Only tolerated 3 sidesteps using front wheeled walker with full weightbearing requiring minimal assistance to with report unsteadiness.? Balance:? Static Sitting: Normal Dynamic Sitting: Good Static Standing: Fair Dynamic Standing: Poor Special Tests: Mobility Limitations Standardized Measure [facility] 6 clicks Basic Mobility Inpatient Short Form: Raw Score: 18 ? ? ? Standardized Score: 47% deficit? Informed Consent/Education:? Patient instructed in purpose of PT consult and plan of care. Assessment:?? Patient presents with clinical signs and symptoms consistent with current/admitting diagnoses sepsis and osteomyelitis left foot that have resulted to mobility limitations, gait instability, generalized weakness, and overall ADL decline as demonstrated by the following impairment level findings: 1.? Decreased strength to B LE major muscle groups 2.? Impaired standing balance 3.? Impaired activity tolerance 4.? Swelling Impairments are contributing to the following functional limitations: 1.? Decline in transfer skills 2.? Difficulty with ambulation without assistive device and physical assistance 3.? Increased completion time for mobility ADL performance 4.? Increased risk for falls 5.? Difficulty with managing steps alone safely Patient is assessed as a 26465 moderate complexity based on the following: History: 81-year-old male with past medical history as indicated above Examination: Demonstrable impairment in strength, balance, and mobility level with underlying impairments and functional limitations as exhibited above as well as deficit score of 47% utilizing the [facility] Mobility Inpatient Short Form Presentation: Evolving Decision Makin moderate complexity Goals: Goals X1 week 1. Supine-Sit independent 2. Sit-Supine independent 3. Sit-Stand independent 4. Stand-Sit independent 5. Bed-Chair supervision with 4WW 6. Chair-Bed supervision with 4WW 7. Gait supervision with 4WW Plan of Care/Treatment Plan: 1-2x/day, 7 days/week x 1 week. Plan of care has been reviewed with the ELEVATOR CONSTRUCTOR providing the service under Physical Therapy direction. Initiate Physical Therapy intervention for strengthening, bed mobility, transfers, gait, stairs, balance training, use of assistive device. DISCHARGE RECOMMENDATIONS: X ? Home with services HHPT Patient will benefit from home health PT services in order to progress mobility level using least restrictive assistive ambulatory device, assess home safety, identify additional equipment needs, and establish a functional maintenance program that will increase ability of patient to remain at home. TREATMENT CODE/TIME: 12722 x 25 minutes, 9:45-10:10 Thank you for this referral. Catracho Garcia PT, DPT [facility] Disclaimer: This note was created using [employer] voice recognition software. It was reviewed for major content. However, there may be multiple small discrepancies and errors due to the voice recognition aspects of the software.
--- NOTE | 2021-10-21 11:43 | PHACLINREV_ITS ---
Pharmacy Admission Review - Admission Clinical Review (Last Reviewed 10/20/21 @ 14:05 by Anil Cartagena MD) B12 deficiency anemia (Acute) Osteomyelitis of left foot (Acute) Insomnia (Acute) Discharge planning issues (Acute) DVT prophylaxis (Acute) Hyponatremia (Acute) No Known Allergies Allergy (Verified 10/19/21 19:37) Resuscitation Status Full Code Height 5 ft 9 in Weight 89.7 kg - Renal Dosing Renal Dosing: BUN 13 mg/dL (7-18) 10/21/21 05:24 Creatinine 0.8 mg/dL (0.70-1.30) 10/21/21 05:24 Medications needing adjustments: Intervened (Crcl ~74 mL/min current meds okay. Cefepime dosing changed back to Q8H as pt's renal function improved.) - Anticoagulation Anticoagulation: Hgb 9.5 g/dL (13.5-17.5) L 10/21/21 05:24 Hct 28.2 % (40.0-50.0) L 10/21/21 05:24 Plt Count 266 10^3/uL (130-400) 10/21/21 05:24 Creatinine 0.8 mg/dL (0.70-1.30) 10/21/21 05:24 DVT Prophylaxis: Reviewed Medications: Enoxaparin Therapeutic Anticoagulation: N/A - Opiate Usage Evaluate Pain Scale/Pains Meds: N/A - Relevant Labs ESR 44 mm/hr (0-20) H 10/19/21 20:20 Sodium 134 mmol/L (136-145) L 10/21/21 05:24 Potassium 3.8 mmol/L (3.5-5.1) 10/21/21 05:24 Chloride 102 mmol/L (98-107) 10/21/21 05:24 Magnesium 1.5 mg/dL (1.8-2.4) L 10/21/21 05:24 C-Reactive Protein 14.70 mg/dL (0.0-0.3) H 10/21/21 05:24 Electrolytes, C-Reactive P, ESR: Reviewed (IV mag ordered and PO mag changed to slow mag.) - DM Control DM Control: Glucose 103 mg/dL (74-106) 10/21/21 05:24 Insulin Dosing: N/A - Heart Failure/AK EF%, ELIECER's, B-Blockers, Diuretics: N/A - BP Control BP Control: Blood Pressure 90/43 Blood Pressure 105/56 Blood Pressure 125/64 Blood Pressure 117/56 Blood Pressure 116/91 Blood Pressure 131/52 Blood Pressure 121/46 If elevated: Reviewed (BP has been up and down some, but mostly a bit low so far this admission.) - Qtc Review If Elevated: N/A (QTc 420 on admission) - IV to PO Switch IV Medications: Reviewed - Home Meds Home Med List reviewed: Intervened (Quite a few unconfimed meds on the home med list in [facility]. A med list was received from the [facility] and used to update the list in [facility]. [facility]od[facility] not [facility] list but was added last admission at [facility], this is currently ordered as inpt. Provider made aware of changes to home med list.) Relevent Home Meds Not ordered & why?: alendronate, amlodipine, furosemide, nitroglycerin (PRN), omeprazole - Current meds Current Medication Order Review: Intervened (Discontinued duplicate med orders.) - Comments Comments/Follow Ups: Watch BP, SCr, mag, labs, for culture results and for med changes (possible renal dose adjustments). Antibiotic Activity - Pharmacy Antibiotic Review Pharmacy Antibiotic Activity: Abx regimen adjustment (Cefepime dose adjusted due to change in renal function. Vanco and cefepime continue (day 2) empirically for osteomyeltis per progress note. BC no growth @24 hours. Wound and surgical culture stains both show few gram positive cocci.)
--- NOTE | 2021-10-21 12:31 | W.PM.PROGNOT ---
Date of Service Date of service: 10/21/21 Time of Service: 10:50 Assessment and Plan Assessment and plan (1) Osteomyelitis of left foot: Status: Acute Assessment and plan: With an open wound on L heel. WBC better. CRP a little worse. Will likely benefit from amputation (non emergent). No beds at the [place] again today - will attempt again tomorrow. The patient is known to the [place] and would like to have his surgery there. However, if no beds there tomorrow, we will try to come up with a firm plan as to when the surgery would be. He could then be in swing bed level status on IV abx while awaiting surgery as long as he is stable. If no such plan can be made, we could consider doing a surgical intervention here potentially. The patient no longer needs ICU. Discussed with Dr Cartagena. Continue empiric vancomycin/cefepime. (2) Orthostatic hypotension: Status: Resolved Assessment and plan: Increase midodrine. Euvolemic at this time. Hold BP meds. Continue monitoring orthostatic BID. He is symptomatic. (3) Peripheral neuropathy: Status: Chronic Assessment and plan: Combination of B12 deficiency and alcoholic. Replete B12. Likely contributing to the origin of the wound on L ankle. (4) H/O alcohol abuse: Status: Resolved Assessment and plan: Last drink over 1.5 years ago, per patient. He is tremulous, but states that this is his chronic tremor. (5) Hypertension: Status: Chronic Assessment and plan: Continue to hold antihypertensives given orthostasis and hypotension. (6) Hyponatremia: Status: Chronic Assessment and plan: Sodium today is 134. His baseline is closer to 135. (7) Anemia: Status: Chronic Assessment and plan: H/o B12 deficiency abd EtOH abuse. Replete B12. No evidence of bleeding at this time. (8) B12 deficiency anemia: Status: Acute Assessment and plan: As above (9) DVT prophylaxis: Status: Acute Assessment and plan: [place] lovenox. (10) Discharge planning issues: Status: Acute Assessment and plan: Transfer to [place] when bed available vs outpatient follow up while on swing bed status - depending on progress. Transferred out of ICU to [facility] status. Subjective Subjective Interval history since last seen: Less orthostatic this morning. Denies chest pain, shortness of breath, nausea. Did not feel comfortable standing (SBP was down to 90s at that time) due to dizziness and preferred to sit. States he has an appointment with the [place] pod[facility]ry (initially says on Friday next week, now telling automotive sales manager that it is on ) - Dr Peter. Exam Narrative Exam Narrative: General: Pleasant tremulous elderly male, resting, wakes up easily, A&Ox3, NAD HEENT: EOMI, MMM Heart: RRR with occasional extra beats Lungs: CTAB Abdomen: soft, nontender, nondistended Extremities: L foot and ankle dressed - c/d/i. L foot is warm. I am not clearly finding a pedal pulse. Objective Last Vital Signs Temp 37.2 C 10/21/21 08:45 Pulse 98 H 10/21/21 10:01 Resp 30 H 10/21/21 10:01 BP 90/43 L 10/21/21 10:01 Pulse Ox 94 10/21/21 08:45 Laboratory Results - last 24 hr 10/20/21 10/20/21 10/21/21 12:15 14:00 05:24 WBC RBC Hgb Hct MCV MCH MCHC RDW Plt Count MPV Immature Gran % Neutrophils % Lymphocytes % Monocytes % Eosinophils % Basophils % Nucleated RBC % Absolute Neutrophils Absolute Lymphocytes Absolute Monocytes Absolute Eosinophils Absolute Basophils Sodium 132 L 134 L Potassium 3.8 Chloride 102 Carbon Dioxide 25.3 Anion Gap 6.7 BUN 13 Creatinine 0.8 Estimated GFR/1.73 m2 >= 60.00 Glucose 103 Calcium 8.5 Magnesium 1.5 L C-Reactive Protein 14.70 H Stl C.difficile Tox PCR Negative 10/21/21 05:24 WBC 10.84 H RBC 3.11 L Hgb 9.5 L Hct 28.2 L MCV 91 MCH 30.5 MCHC 33.7 RDW 12.6 Plt Count 266 MPV 10.4 Immature Gran % 0.5 Neutrophils % 83.3 Lymphocytes % 8.2 Monocytes % 6.8 Eosinophils % 0.8 Basophils % 0.4 Nucleated RBC % 0.0 Absolute Neutrophils 9.03 H Absolute Lymphocytes 0.89 L Absolute Monocytes 0.74 Absolute Eosinophils 0.09 Absolute Basophils 0.04 Sodium Potassium Chloride Carbon Dioxide Anion Gap BUN Creatinine Estimated GFR/1.73 m2 Glucose Calcium Magnesium C-Reactive Protein Stl C.difficile Tox PCR
[2021-10-21] MEDS: Enoxaparin 40 MG/0.4 ML SYR SC (13:40)
[2021-10-21] MEDS: Acetaminophen 500 MG TAB 1000 MG PO ×2 (13:40→19:58)
[2021-10-21] MEDS: Midodrine 2.5 MG TAB 5 MG PO ×2 (13:40→19:58)
--- NOTE | 2021-10-21 14:00 | WOUNDCONS ---
- If Service Date Differs Date of service: 10/21/21 Time of Service: 14:00 Wound Initial Evaluation Narrative: Patient is a 81 yom. He has been brought here as he was not feeling well. 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 Patient was debrided by Dr. Cartagena. In his note he recommends that the foot be amputated. [facility], (Dr Topete,)spelling?. Hospitalist has attempted to transfer him there. However, they have not had a bed available. They will attempt to transfer him there again tomorrow. If there is not a bed available, then a plan to amputate the foot will be discussed here, possibly locally. In the meantime. Dr. Cartagena has reached out to wound nursing, he has requested our assistance in controlling odor and drainage. Patient continues on parental abx for infection coverage at this time. Spoke to patient. Discussed goals of treatment. He agrees to have the wound consult. H&P, labs, radiology, and other pertinent information were reviewed prior to the consult. - Wound Left Foot Wound Type: Pressure Ulcer Pressure Ulcer Stage: IV Wound General Appearance: Reddened, Draining, Necrotic, Tendon Visible Wound Bed Greatest Portion: Pale [place] Wound Bed Lesser Portion: Yellow (Slough) Wound Surrounding Tissue Appearance: Dark Red Percent of Wound Bed Granulated/Red: 0 Percent of Wound Bed Slough/Yellow: 20 Wound Length: 2.9 cm Wound Width: 3.4 cm Wound Depth: 0.6 cm Wound Drainage Amount: Large Wound Drainage Odor: Strong Wound Drainage Description: Purulent Wound Topical Solution/Irrigant: Antibiotic Irrigant Wound Debridement Method: Gauze Wound Debridement Result: Yellow Sloughing Remains Wound Debridement Amount of Tissue Removed: Moderate Additional Other Comments: Wound has purulent exudate dripping steadily - Circulation, Sensation, Motion Edema Degree: 4+ Peripheral Pulse Strength: Absent Capillary Refill: Greater than 3 seconds Sensation Description: Numbness, Tingling (patient had no sensation in the foot at all.) Skin Temperature: Warm Skin Color: Normal Additional Other Comments: patient mostly ambulates using a wheelchair, he will stand pivot to the comode - Pain Pain Level: 0 Patient who has been treated for the calcaneus ulcer for several months. While aware that it will need to be amputated, he has agreed to allow us to manage the drainage and odor. - Photo Photo: - Treatment/Dressing Change Cleanse With: Anasept Dressing Types: Kerlix (Gauze Roll), Other (Quick) - Recomendation Recomendation:: [place] Anasept spray into the wound bed and allow to dwell for 2 minutes. Clean wound bed with gauze. Cut a quick pad to fit into the wound bed. Cover with 4 X 4 Gauze. Wrap with Kerlix. Secure with Tubigrip. Change daily or PRN if saturated. Physcian/Nurse Practioner Notified: Yes (Dr. Dowd) Treatment Time - Time Total Time Spent with Patient: 1 hour - Patient Will be Seen Weekly Treatment: daily - For: For:: 1 week
--- NOTE | 2021-10-21 19:24 | NUR.NOTE ---
Nursing Note: At approximately 1325 on 10/21/21, this RN received report on the pt. from the COMPUTER OPERATIONS ANALYST. At approximately 1338 on 10/21/21, pt. was transferred from ICU to Med/Surg per MD order. Pt. was settled in and oriented to room 215. VS obtained; VSS. Head to toe assessment performed; see Shift Assessment flowsheet for more information. Pt. denied pain. RN will reassess as necessary.
[2021-10-21] MEDS: Tamsulosin 0.4 MG CAPCR PO (22:09)
[2021-10-21] MEDS: traZODone 50 MG TAB 300 MG PO (22:09)
[2021-10-22] VITALS (15 sets, daily range): BP systolic 103–157; BP diastolic 57–88; PULSE 68–98; RESP 16–20; TEMP 36.6–38.1; O2SAT 95–97
--- NOTE | 2021-10-22 | DI.RAD_ITS ---
Exam(s) XR PORTABLE CHEST AP EXAM: XR PORTABLE CHEST AP CLINICAL HISTORY: new fever TECHNIQUE: COMPARISON: CR,XR XR PORTABLE CHEST AP from 10/20/2021 FINDINGS: Examination is compared with prior examination of October 20. Note is again made of prominent calcifi c pleural scarring. Questionable basilar infiltrates seen on prior examination are a bit less promin ent on today's examination. No new consolidation. IMPRESSION: Apparent interval improvement in questionable bibasilar pulmonary infiltrates. If there is a high cl inical suspicion of pneumonitis, additional evaluation with chest CT may be considered for increased reliability of detection of areas of pulmonary opacification. RADIATION DOSE DELIVERED: Total DLP
[2021-10-22] MEDS: CEFEPIME 2 GM in Normal Saline 100 ML IVPB ×3 (04:35→20:06)
[2021-10-22 06:38] LABS: Abs Immature Grans 0.05 10^3/uL (0.0-0.06); Absolute Basophil Count 0.05 10^3/uL (0.0-0.2); Absolute Eosinophil Count 0.19 10^3/uL (0.0-0.7); Absolute Lymphocyte Count 0.95 10^3/uL (1.2-3.4); Absolute Monocyte Count 0.74 10^3/uL (0.1-0.8); Basophils % 0.5; Eosinophils % 1.8; HGB 9.9 g/dL (13.5-17.5); Immature Grans % 0.5; Lymphocytes % 9.2; MCH 30.2 pg (27.0-33.0); MCV 92 fL (80-95); MPV 10.4 fL (8.0-11.0); Monocytes % 7.1; Neutrophils % 80.9; Platelet Count 288 10^3/uL (130-400); RBC 3.28 10^6/uL (4.36-5.78); RDW 12.6 % (11.8-14.1); RDW-SD 42.1 fL; WBC 10.38 10^3/uL (4.4-10.8)
[2021-10-22 07:00] LABS: Anion Gap 4.5 mmol/L (3-11); BUN 15 mg/dL (7-18); C-Reactive Protein 14.78 mg/dL (0.0-0.3); CO2 26.5 mmol/L (21.0-32.0); CREATININE 0.8 mg/dL (0.70-1.30); Calcium 8.7 mg/dL (8.5-10.1); Chloride 101 mmol/L (98-107); Glucose 96 mg/dL (74-106); Potassium 3.6 mmol/L (3.5-5.1); Sodium 132 mmol/L (136-145)
[2021-10-22 07:24] LABS: Procalcitonin 0.1 ng/mL
[2021-10-22] MEDS: Magnesium Chloride 64 MG TABCR PO ×2 (08:51→20:06)
[2021-10-22] MEDS: Calcium 600mg/Vit D 200U TAB 2 TAB PO (08:51)
[2021-10-22] MEDS: Midodrine 2.5 MG TAB 5 MG PO ×3 (08:52→20:06)
[2021-10-22] MEDS: Aspirin E.C. 81 MG TABEC PO (08:52)
[2021-10-22] MEDS: Loratidine 10 MG TAB PO (08:52)
[2021-10-22] MEDS: Potassium Chloride 20 MEQ TABCR PO (08:53)
[2021-10-22] MEDS: Atorvastatin 40 MG TAB PO (08:53)
--- NOTE | 2021-10-22 08:53 | CMPROGNOTE_ITS ---
- If Service Date Differs Date of service: 10/22/21 Time of Service: 08:53 Care Management Progress Note S/O: MARCUS spoke with Natalee from the [facility] this morning and is waiting for a call back from the seo coordinator. Dr. Dowd would like direct transfer today if possible. Tyler's previously scheduled appointment with Dr. [facility] the [facility] is on 10/25/21 at 1130, CM confirmed. If patient is unable to transfer CM requested a sooner appointment. Clinical's are faxed to Dr. Peter's office at the [facility]. 1030: Per Rosario/CON at the [facility], there is no bed availability and no expected discharges for 2 days. 1035: Dr. Dowd is working on sending images to the [facility] and would like to speak directly to Dr. Peter. MARCUS left several messages at Dr. Peter's office today and is waiting for a return call. A: 81 year old male admitted to [facility] on 10/20/21 Sepsis, osteomyelitis. P: [facility] vs[facility] to SWB1 and He will follow up with his PCP, orthopaedic surgeon, and plan of care as directed upon discharge from the hospital. CM will continue to follow.
[2021-10-22] MEDS: Acetaminophen 500 MG TAB 1000 MG PO ×2 (11:28→20:06)
[2021-10-22] MEDS: Normal Saline 500 ML 30 ML IV (12:33)
[2021-10-22] MEDS: Normal Saline Flush 10 ML SYR IVP ×4 (12:34→20:11)
[2021-10-22 13:17] LABS: Source Nasal/Nares
[2021-10-22] MEDS: Enoxaparin 40 MG/0.4 ML SYR SC (13:52)
[2021-10-22] MEDS: VANCOMYCIN/WATER (PEG) 1.25 GM/250 ML BAG IV (14:05)
[2021-10-22 14:09] LABS: COVID-19 PCR Negative (Negative)
--- NOTE | 2021-10-22 15:11 | PT.INNT ---
Date of service: 10/22/21 Time of Service: 15:11 PT Notes Visit Reasons: Sepsis,Osteomyelitis 10/22/2021 Tyler pleasantly declines the need for PT. He states, I don't see why I need PT when I'm sitting here waiting for them to cut my leg off. He reports that he has been getting up and down to the commode without difficulty. He would prefer to wait to participate in PT until after [facility]. Will attempt to resume PT services tomorrow morning, if patient agreeable.
[2021-10-22 15:34] LABS: Bilirubin Negative (Negative); Blood Negative (Negative); Clarity Clear (Clear); Glucose Negative (Negative); Ketones Negative (Negative); Leukocyte Esterase Negative (Negative); Nitrite Negative (Negative); Urobilinogen 0.2 EU/dL (Up TO 0.2); pH 6.5 (5-8)
[2021-10-22 15:52] LABS: Bacteria Negative HPF (Negative); C & S Indicated? No; Casts Negative LPF (Negative); Crystals Negative HPF (Negative); Epithelial Cells Rare HPF (Negative); Mucus Negative (Negative); RBC 0-2 HPF (0-2); WBC 0-2 HPF (0-5)
--- NOTE | 2021-10-22 16:36 | PGE_ITS ---
Date of Service Date of service: 10/22/21 Time of Service: 16:36 Assessment and Plan Assessment and plan (1) Osteomyelitis of left foot: Status: Acute Assessment and plan: With an open wound on L heel. WBC better. CRP almost exactly the same. Febrile today. Other sources of infection ruled out, but it appears that the foot is the source of infection. Will likely benefit from amputation (non emergent). [facility]. Awaiting a call back from the [place] [facility] to coordinate our therapeutic plan. The patient has an appointment with podiatry at the [place] this . We will see if this can be moved up. The patient could be placed in swing bed level status to attend that appointment. Continue empiric vancomycin/cefepime. Blood recultured today. (2) Orthostatic hypotension: Status: Acute Assessment and plan: Better. Continue current dose of midodrine. Euvolemic at this time. Hold BP meds. Continue monitoring orthostatic BID. Not reporting dizziness today. (3) Peripheral neuropathy: Status: Chronic Assessment and plan: Combination of B12 deficiency and alcoholic. Replete B12. Likely contributing to the origin of the wound on L ankle. (4) H/O alcohol abuse: Status: Resolved Assessment and plan: Last drink over 1.5 years ago, per patient. He is tremulous, but states that this is his chronic tremor. (5) Hypertension: Status: Chronic Assessment and plan: Continue to hold antihypertensives given orthostasis. (6) Hyponatremia: Status: Chronic Assessment and plan: Sodium today is 132. His baseline is closer to 135. He is not sypmtomatic. (7) Anemia: Status: Chronic Assessment and plan: H/o B12 deficiency abd EtOH abuse. Replete B12. No evidence of bleeding at this time. (8) B12 deficiency anemia: Status: Acute Assessment and plan: As above (9) DVT prophylaxis: Status: Acute Assessment and plan: [place] lovenox. (10) Discharge planning issues: Status: Acute Assessment and plan: Transfer to [place] when bed available vs outpatient follow up while on swing bed status. Full code. Awaiting call back from the [place] product introduction manager Dr Peter Subjective Subjective Interval history since last seen: Mr Pratt had a fever this morning. He denies dizziness, chest pain, shortness of breath, nausea. Reports his chronic cough. Denies diarrhea, endorses constipation. No beds again at the [place]. I am awaiting a call back from the patient's product introduction manager. Exam Narrative Exam Narrative: General: Pleasant elderly male, resting in bed, wakes up easily, A&Ox3, NAD HEENT: EOMI, MMM Heart: RRR, no m/r/g Lungs: CTAB Abdomen: soft, nontender, nondistended Extremities: L foot and ankle dressed - c/d/i. L foot is warm. +1 edema LLE, no edema RLE. Objective Last Vital Signs Temp 37.0 C 10/22/21 16:05 Pulse 76 10/22/21 16:05 Resp 16 10/22/21 16:05 BP 119/71 10/22/21 16:05 Pulse Ox 95 10/22/21 16:05 Laboratory Results - last 24 hr 10/22/21 10/22/21 10/22/21 05:55 05:55 05:55 WBC 10.38 RBC 3.28 L Hgb 9.9 L Hct 30.0 L MCV 92 MCH 30.2 MCHC 33.0 RDW 12.6 Plt Count 288 MPV 10.4 Immature Gran % 0.5 Neutrophils % 80.9 Lymphocytes % 9.2 Monocytes % 7.1 Eosinophils % 1.8 Basophils % 0.5 Nucleated RBC % 0.0 Absolute Neutrophils 8.40 H Absolute Lymphocytes 0.95 L Absolute Monocytes 0.74 Absolute Eosinophils 0.19 Absolute Basophils 0.05 Sodium 132 L Potassium 3.6 Chloride 101 Carbon Dioxide 26.5 Anion Gap 4.5 BUN 15 Creatinine 0.8 Estimated GFR/1.73 m2 >= 60.00 Glucose 96 Calcium 8.7 Magnesium 2.0 C-Reactive Protein 14.78 H Procalcitonin 0.1 Urine Color Urine Clarity Urine pH Ur Specific [place] Urine Protein Urine Ketones Urine Blood Urine Nitrite Urine Bilirubin Urine Urobilinogen Ur Leukocyte Esterase Urine RBC Urine WBC Ur Epithelial Cells Urine Crystals Urine Bacteria Urine Casts Urine Mucus Ur Culture Indicated? Urine Glucose COVID-19 Source SARS-CoV-2 (PCR) 10/22/21 10/22/21 12:55 15:10 WBC RBC Hgb Hct MCV MCH MCHC RDW Plt Count MPV Immature Gran % Neutrophils % Lymphocytes % Monocytes % Eosinophils % Basophils % Nucleated RBC % Absolute Neutrophils Absolute Lymphocytes Absolute Monocytes Absolute Eosinophils Absolute Basophils Sodium Potassium Chloride Carbon Dioxide Anion Gap BUN Creatinine Estimated GFR/1.73 m2 Glucose Calcium Magnesium C-Reactive Protein Procalcitonin Urine Color Yellow Urine Clarity Clear Urine pH 6.5 Ur Specific [place] 1.020 Urine Protein 30 H Urine Ketones Negative Urine Blood Negative Urine Nitrite Negative Urine Bilirubin Negative Urine Urobilinogen 0.2 Ur Leukocyte Esterase Negative Urine RBC 0-2 Urine WBC 0-2 Ur Epithelial Cells Rare Urine Crystals Negative Urine Bacteria Negative Urine Casts Negative Urine Mucus Negative Ur Culture Indicated? No Urine Glucose Negative COVID-19 Source Nasal/Nares SARS-CoV-2 (PCR) Negative Objective Narrative Objective Narrative: CXR: Apparent interval improvement in questionable bibasilar pulmonary infiltrates.? If there is a high clinical suspicion of pneumonitis, additional evaluation with chest CT may be considered for increased reliability of detection of areas of pulmonary opacification.
[2021-10-22] MEDS: traZODone 50 MG TAB 300 MG PO (22:02)
[2021-10-22] MEDS: Omeprazole 20 MG CAPCR PO (22:02)
[2021-10-22] MEDS: Tamsulosin 0.4 MG CAPCR PO (22:03)
[2021-10-23] VITALS (9 sets, daily range): BP systolic 106–150; BP diastolic 60–78; PULSE 78–95; RESP 16–18; TEMP 35.4–37.7; O2SAT 94–96
[2021-10-23] MEDS: CEFEPIME 2 GM in Normal Saline 100 ML IVPB ×3 (04:30→21:46)
[2021-10-23 06:14] LABS: Abs Immature Grans 0.03 10^3/uL (0.0-0.06); Absolute Basophil Count 0.06 10^3/uL (0.0-0.2); Absolute Eosinophil Count 0.22 10^3/uL (0.0-0.7); Absolute Lymphocyte Count 1.26 10^3/uL (1.2-3.4); Absolute Neutrophil Count 7.24 10^3/uL (1.2-6.7); Basophils % 0.6; Eosinophils % 2.3; HCT 29.4 % (40.0-50.0); HGB 9.9 g/dL (13.5-17.5); Immature Grans % 0.3; Lymphocytes % 13.1; MCH 30.7 pg (27.0-33.0); MCHC 33.7 % (32.0-36.0); MCV 91 fL (80-95); MPV 10.7 fL (8.0-11.0); Monocytes % 8.3; Neutrophils % 75.4; Platelet Count 215 10^3/uL (130-400); RBC 3.22 10^6/uL (4.36-5.78); RDW 12.7 % (11.8-14.1); RDW-SD 42.4 fL; WBC 9.61 10^3/uL (4.4-10.8)
[2021-10-23 06:26] LABS: Anion Gap 7.9 mmol/L (3-11); BUN 14 mg/dL (7-18); CO2 23.1 mmol/L (21.0-32.0); CREATININE 0.8 mg/dL (0.70-1.30); Calcium 8.8 mg/dL (8.5-10.1); Chloride 101 mmol/L (98-107); Magnesium 1.5 mg/dL (1.8-2.4); Potassium 3.8 mmol/L (3.5-5.1); Sodium 132 mmol/L (136-145)
[2021-10-23 06:30] LABS: Glucose 89 mg/dL (74-106)
[2021-10-23 06:34] LABS: Vancomycin, Trough 11.9 ug/mL (10.0-20.0)
--- NOTE | 2021-10-23 08:00 | DI.US_ITS ---
Exam(s) US LOWER EXTREMITY VENOUS LT EXAM: US LOWER EXTREMITY VENOUS LT CLINICAL HISTORY: LLE edema TECHNIQUE: Left lower extremity venous ultrasound performed using grayscale, color-flow, and spectra l Doppler analysis. COMPARISON: No exams were available for comparison FINDINGS: The left common femoral, femoral and popliteal veins demonstrate normal compressibility, augmentation , and color Doppler. The posterior tibial veins are patent. The saphenofemoral junction is unremarka ble. There is no evidence of a Long cyst. The soft tissues are unremarkable. IMPRESSION: No evidence of a left lower extremity DVT. DATA REPOSITORY:
[2021-10-23] MEDS: Midodrine 2.5 MG TAB 5 MG PO ×3 (08:39→19:47)
[2021-10-23] MEDS: Aspirin E.C. 81 MG TABEC PO (08:39)
[2021-10-23] MEDS: Atorvastatin 40 MG TAB PO (08:39)
[2021-10-23] MEDS: Acetaminophen 500 MG TAB 1000 MG PO ×3 (08:39→19:47)
[2021-10-23] MEDS: Potassium Chloride 20 MEQ TABCR PO (08:39)
[2021-10-23] MEDS: Magnesium Chloride 64 MG TABCR PO ×2 (08:39→19:47)
[2021-10-23] MEDS: MAGNESIUM SULFATE 4 GM/100 ML BAG IVPB (08:44)
[2021-10-23] MEDS: Normal Saline Flush 10 ML SYR IVP ×4 (08:45→19:47)
[2021-10-23] MEDS: VANCOMYCIN/WATER (PEG) 1 GM/200 ML BAG IV ×2 (08:57→19:46)
--- NOTE | 2021-10-23 09:21 | CMPROGNOTE_ITS ---
- If Service Date Differs Date of service: 10/23/21 Time of Service: 09:21 Care Management Progress Note S/O: Tyler was sitting up in bed when CM met with him. He is alert, oriented and easy to engage in conversation. Tyler would prefer to use a 4 wheel walker, CM notified PT. [facility], [facility] for [facility], however the [facility] will call in the morning to let up know if a scheduled discharge could be accommodated. If not, Tyler will likely need to transition to SWB, in order to make it to his appointment this . A: 81 year old male admitted to [facility] on 10/20/21 Sepsis, osteomyelitis. P: [facility] to [facility] and He will follow up with his PCP, orthopaedic surgeon, and plan of care as directed upon discharge from the hospital. CM will continue to follow.
--- NOTE | 2021-10-23 18:11 | W.PM.PROGNOT ---
Date of Service Date of service: 10/23/21 Time of Service: 18:11 Assessment and Plan Assessment and plan (1) Osteomyelitis of left foot: Status: Acute Assessment and plan: With an open wound on L heel. Resulting in pathologic fracture. WBC better. Afebrile. Will benefit from amputation (non emergent). No beds at the [place] again today. Spoke with Dr Peter who will see the patient in his office on 10/25 at 11:30 am. WIll need to be in swing bed level status in order for this appointment to happen. Continue empiric vancomycin/cefepime. Blood recultured yesterday - NGTD, wound cx: Staph aureus, E. faecium and another enterococcus species, vanco sensitive in 2 of them; 3rd pending. (2) Orthostatic hypotension: Status: Acute Assessment and plan: Better. Continue current dose of midodrine. Euvolemic at this time. Hold BP meds. Continue monitoring orthostatic BID. Not reporting dizziness today. (3) Peripheral neuropathy: Status: Chronic Assessment and plan: Combination of B12 deficiency and alcoholic. Replete B12. Likely contributing to the origin of the wound on L ankle. (4) H/O alcohol abuse: Status: Resolved Assessment and plan: Last drink over 1.5 years ago, per patient. He is tremulous, but states that this is his chronic tremor. (5) Hypertension: Status: Chronic Assessment and plan: Continue to hold antihypertensives given orthostasis. (6) Hyponatremia: Status: Chronic Assessment and plan: Sodium remains at 132. His baseline is closer to 135. He is not sypmtomatic. (7) Anemia: Status: Chronic Assessment and plan: H/o B12 deficiency abd EtOH abuse. Replete B12. No evidence of bleeding at this time. (8) B12 deficiency anemia: Status: Acute Assessment and plan: As above (9) DVT prophylaxis: Status: Acute Assessment and plan: [place] lovenox. (10) Discharge planning issues: Status: Acute Assessment and plan: Transfer to [facility] when bed available vs outpatient follow up while on swing bed status - appointment with Dr Peter of [facility] on October 25 at 11:30 am Full code Subjective Subjective Interval history since last seen: Still no bed at the [facility]. Denies dizziness, chest pain, shortness of breath, nausea. Exam Narrative Exam Narrative: General: Pleasant elderly male, resting in bed, wakes up easily, A&Ox3, NAD HEENT: EOMI, MMM Heart: RRR, no m/r/g Lungs: CTAB Abdomen: soft, nontender, nondistended Extremities: L foot and ankle dressed - c/d/i. L foot is warm. +1 edema LLE, no edema RLE. Objective Last Vital Signs Temp 35.4 C L 10/23/21 15:42 Pulse 78 10/23/21 15:42 Resp 18 10/23/21 15:42 BP 111/64 10/23/21 15:42 Pulse Ox 94 10/23/21 15:42 Laboratory Results - last 24 hr 10/23/21 10/23/21 10/23/21 05:45 05:45 05:45 WBC 9.61 RBC 3.22 L Hgb 9.9 L Hct 29.4 L MCV 91 MCH 30.7 MCHC 33.7 RDW 12.7 Plt Count 215 MPV 10.7 Immature Gran % 0.3 Neutrophils % 75.4 Lymphocytes % 13.1 Monocytes % 8.3 Eosinophils % 2.3 Basophils % 0.6 Nucleated RBC % 0.0 Absolute Neutrophils 7.24 H Absolute Lymphocytes 1.26 Absolute Monocytes 0.80 Absolute Eosinophils 0.22 Absolute Basophils 0.06 Sodium 132 L Potassium 3.8 Chloride 101 Carbon Dioxide 23.1 Anion Gap 7.9 BUN 14 Creatinine 0.8 Estimated GFR/1.73 m2 >= 60.00 Glucose 89 Calcium 8.8 Magnesium 1.5 L Vancomycin Trough 11.9 Objective Narrative Objective Narrative: Venous doppler BLEs: No evidence of a left lower extremity DVT.?
[2021-10-23] MEDS: traZODone 50 MG TAB 300 MG PO (21:45)
[2021-10-23] MEDS: Tamsulosin 0.4 MG CAPCR PO (21:46)
[2021-10-23 22:45] LABS: Campylobacter PCR Negative (Negative); Salmonella PCR Negative (Negative); Shiga Toxin PCR Negative (Negative); Shigella/Enteroinvasive Ecoli Negative (Negative)
[2021-10-24 03:00] VITALS: BP 138/60; PULSE 80; RESP 20; TEMP 37; O2SAT 96
[2021-10-24 06:10] LABS: Abs Immature Grans 0.03 10^3/uL (0.0-0.06); Absolute Basophil Count 0.05 10^3/uL (0.0-0.2); Absolute Eosinophil Count 0.25 10^3/uL (0.0-0.7); Absolute Lymphocyte Count 0.88 10^3/uL (1.2-3.4); Absolute Monocyte Count 0.69 10^3/uL (0.1-0.8); Absolute Neutrophil Count 7.63 10^3/uL (1.2-6.7); Basophils % 0.5; Eosinophils % 2.6; HCT 28.8 % (40.0-50.0); HGB 9.7 g/dL (13.5-17.5); Immature Grans % 0.3; Lymphocytes % 9.2; MCHC 33.7 % (32.0-36.0); MCV 92 fL (80-95); MPV 10.6 fL (8.0-11.0); Monocytes % 7.2; Neutrophils % 80.2; Platelet Count 223 10^3/uL (130-400); RBC 3.13 10^6/uL (4.36-5.78); RDW-SD 43.8 fL; WBC 9.53 10^3/uL (4.4-10.8)
[2021-10-24 06:21] LABS: Anion Gap 3.2 mmol/L (3-11); BUN 17 mg/dL (7-18); C-Reactive Protein 12.49 mg/dL (0.0-0.3); CO2 25.8 mmol/L (21.0-32.0); CREATININE 0.7 mg/dL (0.70-1.30); Calcium 8.4 mg/dL (8.5-10.1); Chloride 101 mmol/L (98-107); Glucose 90 mg/dL (74-106); Potassium 3.9 mmol/L (3.5-5.1); Sodium 130 mmol/L (136-145)
[2021-10-24] MEDS: CEFEPIME 2 GM in Normal Saline 100 ML IVPB ×2 (06:30→14:34)
[2021-10-24 07:00] VITALS: PULSE 82
[2021-10-24 07:38] VITALS: BP 112/65; PULSE 102; RESP 20; TEMP 37.2; O2SAT 95
[2021-10-24] MEDS: Loratidine 10 MG TAB PO (07:54)
[2021-10-24] MEDS: Potassium Chloride 20 MEQ TABCR PO (07:54)
[2021-10-24] MEDS: Aspirin E.C. 81 MG TABEC PO (07:54)
[2021-10-24] MEDS: VANCOMYCIN/WATER (PEG) 1 GM/200 ML BAG IV (07:55)
[2021-10-24] MEDS: Calcium 600mg/Vit D 200U TAB 2 TAB PO (07:55)
[2021-10-24] MEDS: Midodrine 2.5 MG TAB 5 MG PO ×2 (07:55→14:33)
[2021-10-24] MEDS: Magnesium Chloride 64 MG TABCR PO (07:55)
[2021-10-24] MEDS: Acetaminophen 500 MG TAB 1000 MG PO ×2 (07:55→14:34)
[2021-10-24] MEDS: Atorvastatin 40 MG TAB PO (07:55)
[2021-10-24] MEDS: Normal Saline Flush 10 ML SYR IVP ×2 (07:56→14:34)
--- NOTE | 2021-10-24 09:04 | CMPROGNOTE_ITS ---
- If Service Date Differs Date of service: 10/24/21 Time of Service: 09:04 Care Management Progress Note S/O: Tyler is transitioning to SWB1 today for IV abx. Tyler will be going to his appointment with Dr. Peter at the [facility] @1130 tomorrow. Tyler will transport via [facility]C van @720 am. A: 81 year old male admitted to [facility] on 10/20/21 Sepsis, osteomyelitis. P: Tyler is transitioning to SWB1 for IV ABX. He will go to the [facility] on 10/25/21 for his appointment with Dr. Peter. Plan of care to follow. CM will continue to follow.
--- NOTE | 2021-10-24 09:04 | PDOC.CMPRO ---
- If Service Date Differs Date of service: 10/24/21 Time of Service: 09:04 Care Management Progress Note S/O: Tyler is transitioning to SWB1 today for IV abx. Tyler will be going to his appointment with Dr. Peter at the [facility] @1130 tomorrow. Tyler will transport via [facility] W[facility] van @720 am. A: 81 year old male admitted to [facility] on 10/20/21 Sepsis, osteomyelitis. P: Tyler is transitioning to SWB1 for IV ABX. He will go to the [facility] on 10/25/21 for his appointment with Dr. Peter. Plan of care to follow. CM will continue to follow.
[2021-10-24 11:11] VITALS: BP 120/67; PULSE 77; RESP 18; TEMP 37; O2SAT 94
[2021-10-24 14:54] VITALS: BP 116/72; PULSE 80; RESP 18; TEMP 36.4; O2SAT 96
[2021-10-24 15:04] VITALS: PULSE 85
--- NOTE | 2021-10-24 15:05 | W.PM.DS.N ---
Date of service: 10/24/21 Time of Service: 15:05 DS: Diagnosis Discharge Diagnosis (1) Osteomyelitis of left foot: Status: Acute (2) Orthostatic hypotension: Status: Acute (3) Peripheral neuropathy: Status: Chronic (4) H/O alcohol abuse: Status: Resolved (5) Hypertension: Status: Chronic (6) Hyponatremia: Status: Chronic (7) Anemia: Status: Chronic (8) B12 deficiency anemia: Status: Acute Discharge Plan Disposition Patient Disposition: [facility] SWING BED LEVEL 1 Condition: Stable Discharge Details Reason For Visit: Sepsis,Osteomyelitis Admit Date/Time: 10/19/21 23:54 Admit Provider: Dontae Galdamez Attending Provider: Dontae Galdamez Primary Care Provider: Brad Morrow Hospital Course Hospital Course: This is a 81-year-old male patient with a past medical history significant for COPD hypertension hyper cholesterolemia chronic left heel ulcer who was transported to the emergency department after EMS was summonsed as he felt dizzy. They did do a blood pressure check at the scene and he was noted to be hypotensive with a systolic blood pressure of 70. He does take midodrine. His work-up in the emergency department included evaluation of his left heel which had purulent drainage and concerning for a chronic cellulitis versus osteomyelitis. Inflammatory markers significantly elevated and CAT scan of the foot did show a calcaneal osteomyelitis. He was started on broad-spectrum antibiotics and admitted to the medical surgical unit for further evaluation. He is a [facility] patient and they did try to transfer him but there was no beds available. Orthopedics was consulted here for recommendations. Everyone in agreement that he would benefit from amputation but the patient is wanting his procedure done at the [facility]. They continue to have no beds. Blood cultures have remained with no growth. Wound cultures growing staph aureus and Enterobacter 2 separate species all of which are sensitive to vancomycin which he has been receiving since admission. Hospital course has been complicated by orthostatic hypotension which has improved. He is blood pressure medications have been placed on hold and he continues to receive midodrine. He was found to be vitamin B12 and supplementation ordered. He does have a history of alcohol use disorder but with no recent use and a chronic tremor at baseline. He continues to wish for a bed at the [facility] for his amputation. He will remain here on IV antibiotics under fci until a bed becomes available. He is being discharged to swing bed level 1 at [facility] pending bed availability at the [facility] in [place] Discharge discussed with Dr Dowd Home Meds and New Rx's Prescriptions: No Action nitroglycerin [Nitrostat] 0.4 mg tablet, sublingual 0.4 mg Sublingual Q5M PRN Rx Instructions: for chest pain amlodipine 10 MG tablet 10 mg PO DAILY omeprazole 20 MG capsule,delayed release(DR/EC) 40 mg PO DAILY Label Comments: Pt. states that he doesn't take this medication. loratadine 10 mg Tablet 10 mg PO DAILY albuterol sulfate 90 mcg/actuation HFA aerosol inhaler 2 puff INHALATION Q6H PRN aspirin 81 mg Tablet,Delayed Release (Dr/Ec) 81 mg PO DAILY multivitamin Tablet 1 tab PO DAILY atorvastatin 40 mg Tablet 40 mg PO DAILY alendronate 70 mg Tablet 70 mg PO QWEEK lidocaine 5 % Adhesive Patch,Medicated 2 patch TOPICAL DAILY Rx Instructions: leave on low back for up to 12 hrs calcium carbonate-vitamin D3 [Calcium 500 + D] 500 mg-5 mcg (200 unit) Tablet 2 tab PO DAILY tiotropium bromide 2.5 mcg/actuation Mist 2 puff INHALATION DAILY trazodone 100 mg Tablet 300 mg PO HS potassium chloride 20 mEq tablet extended release 20 meq PO DAILY Qty: 30 0RF tamsulosin 0.4 mg Capsule 0.4 mg PO HS Qty: 0 0RF lisinopril 10 MG tablet 10 mg PO QPM Qty: 0 0RF furosemide 20 mg Tablet 20 mg PO DAILY Qty: 0 0RF Discharge Instructions Referrals: [facility] [Outside] - 10/25/21 11:30 am (Podiatry- Dr Peter) Activity:: Activity as Tolerated Equipment/Supplies:: No Equipment Needed Diet:: As Tolerated Discharge Orders Discharge Orders: Discharge Order (Routine); Ordered 10/24/21 Ordered By: Mikayla Weston DS: Summary Time Spent with Patient providing and/or coordinating discharge services: Greater than 30 minutes Status at Discharge Functional status at discharge: uses cane/walker Overall status at discharge: patient is not back to baseline Mental Status: mental status grossly normal Speech and Movement: speech and movement normal Mood: congruent mood Affect: normal affect Exam Const General: cooperative, comfortable and no acute distress Nutritional Appearance: average body habitus Orientation: alert, awake and oriented x3 HENMT Head: normal to inspection, normocephalic and atraumatic Mouth: oral mucosae normal Eyes General: appearance normal, both eyes and all related structures Resp Effort & Inspection: normal respiratory effort Cardio Rate: regular rate Rhythm: regular rhythm GI Inspection: normal to inspection Palpation: soft Auscultation: normal bowel sounds Skin Lesions: lesion noted (dressing intact) Extrem General: full ROM Psych Mental Status: mental status grossly normal Speech and Movement: speech and movement normal Mood: congruent mood Affect: normal affect DS: Data Vitals/I&O Vitals and I&O: Vital Signs Temperature 36.4 C L 10/24/21 14:54 Temperature Source Tympanic 10/24/21 14:54 Pulse 80 10/24/21 14:54 Pulse Rhythm Regular 10/24/21 08:51 Pulse 87 10/21/21 14:00 Respiratory Rate 18 10/24/21 14:54 Respiratory Effort Non-Labored 10/24/21 08:51 Respiratory Depth Normal 10/24/21 08:51 Respiratory Pattern Normal 10/24/21 08:51 Blood Pressure 116/72 10/24/21 14:54 Blood Pressure Mean 64 10/21/21 12:10 Blood Pressure Position Sitting 10/21/21 08:45 Pulse Oximetry 96 10/24/21 14:54 Oxygen Delivery Method Room Air 10/24/21 14:54 Oxygen Flow Rate 0 10/24/21 14:54 Pain Level 0 10/24/21 14:54 Comment 10/23/21 23:30 Intake & Output 10/23/21 10/24/21 10/24/21 23:59 11:59 23:59 Intake Total 560 / 900 540 / 540 Output Total 925 / 1225 400 / 700 300 / 700 Balance -365 / -325 140 / -160 -300 / -160 Weight 80.8 kg Intake: IV 440 / 780 300 / 300 Oral 120 / 120 240 / 240 Output: Urine 925 / 1225 400 / 700 300 / 700 Other: Urine Color Yellow Straw Straw Urine Appearance Cloudy Clear Clear Urine Odor Normal Normal Stool Size Small Stool Characteristics Formed Hard Brown Voiding Methods Urinal Bedside Commode Urinal Data Completed and Pending Labs on day of discharge: Labs from last 24 hours 10/24/21 10/24/21 10/24/21 19:00 05:30 05:30 WBC 9.53 RBC 3.13 L Hgb 9.7 L Hct 28.8 L MCV 92 MCH 31.0 MCHC 33.7 RDW 13.0 Plt Count 223 MPV 10.6 Immature Gran % 0.3 Neutrophils % 80.2 Lymphocytes % 9.2 Monocytes % 7.2 Eosinophils % 2.6 Basophils % 0.5 Nucleated RBC % 0.0 Absolute Neutrophils 7.63 H Absolute Lymphocytes 0.88 L Absolute Monocytes 0.69 Absolute Eosinophils 0.25 Absolute Basophils 0.05 Sodium 130 L Potassium 3.9 Chloride 101 Carbon Dioxide 25.8 Anion Gap 3.2 BUN 17 Creatinine 0.7 Estimated GFR/1.73 m2 >= 60.00 Glucose 90 Calcium 8.4 L Magnesium 2.0 C-Reactive Protein 12.49 H Stool Campylobacter PCR Stool Salmonella PCR Stool Shigella PCR Vancomycin Trough Pending Shiga Toxin (PCR) 10/22/21 20:27 WBC RBC Hgb Hct MCV MCH MCHC RDW Plt Count MPV Immature Gran % Neutrophils % Lymphocytes % Monocytes % Eosinophils % Basophils % Nucleated RBC % Absolute Neutrophils Absolute Lymphocytes Absolute Monocytes Absolute Eosinophils Absolute Basophils Sodium Potassium Chloride Carbon Dioxide Anion Gap BUN Creatinine Estimated GFR/1.73 m2 Glucose Calcium Magnesium C-Reactive Protein Stool Campylobacter PCR Negative Stool Salmonella PCR Negative Stool Shigella PCR Negative Vancomycin Trough Shiga Toxin (PCR) Negative Preliminary micro results at discharge 10/19/21 23:05 Blood Culture - Preliminary Blood NO GROWTH 96 HOURS 10/19/21 20:19 Blood Culture - Preliminary Blood NO GROWTH 96 HOURS 10/22/21 13:08 Blood Culture - Preliminary Blood NO GROWTH 24 HOURS 10/22/21 13:10 Blood Culture - Preliminary Blood NO GROWTH 24 HOURS PFSH All Active Problems (Updated 10/22/21 @ 16:41 by Jenny Dowd MD) Orthostatic hypotension (Acute) B12 deficiency anemia (Acute) Anemia (Chronic) Osteomyelitis of left foot (Acute) DNR (do not resuscitate) (Acute) Health insurance with [facility] [employer] [facility] (Acute) Acute exacerbation of chronic obstructive pulmonary disease (COPD) (Acute) Pneumonia (Acute) Wernicke encephalopathy (Acute) Insomnia (Acute) Intention tremor (Chronic) COPD exacerbation (Acute) Hypertension (Chronic) Pain (Acute) Syncope (Acute) Fracture of rib of left side (Chronic) Laceration of right thumb (Acute) Thoracic vertebral fracture (Acute) Peripheral neuropathy (Chronic) Peripheral vertigo of both ears (Acute) Stenosis of right internal carotid artery (Acute) Discharge planning issues (Acute) DVT prophylaxis (Acute) Dizziness (Acute) Chest pain (Acute) Alcohol abuse (Chronic) Community acquired pneumonia (Acute) COPD (chronic obstructive pulmonary disease) (Chronic) Hyponatremia (Chronic) Pancytopenia (Acute) Medical History Alcohol abuse GERD (gastroesophageal reflux disease) HTN (hypertension) Hx of hyperlipidemia Orthostatic hypotension Stenosis of both internal carotid arteries Vertigo Surgical History Fracture of right hip pinning Hx of cholecystectomy Social History Smoking/Tobacco Use Status: Current every day Tobacco Type: cigars Smoking risk assessment performed?: Yes Alcohol Intake: former Drug use: Never Substance use type: does not use Do you feel safe at home: Yes Do you feel safe in your relationship?: Yes Additional Social history: Lives in his own apartment, [address] in [facility]
--- NOTE | 2021-10-24 15:13 | PDOC.CMDIS ---
- If Service Date Differs Date of service: 10/24/21 Time of Service: 15:13 LACE Index Scoring Tool - Questions: Length of Stay (in days): 4 - 6 Acuity (Admit via E.D.?): Yes E.D. Visits: 3 - Answers: Total Score: 10 Risk of Readmission: High Risk Care Management Discharge Reason for Hospitalization: Sepsis, osteomyelitis. Discharge Plan: Tyler transitioned to [facility] for IV ABX. Tyler will likely require surgical intervention at the [facility]. Which will be discussed at his appointment at the [facility] with Dr. Peter tomorrow 10/25/21 at 1130. [facility] 720[facility]. Patient/Family Education Needs: Review discharge plan.
[2021-10-24] MEDS: Water,Injection,Sterile 10 ML VIAL (16:38)
[2021-10-24] MEDS: Alteplase 2 MG VIAL IJ (16:38)
== END 2021-10-24 16:57 | disposition swing bed (61) | DRG 477 ==
LOC: ER 21:30 → ICU 10-20 00:44 → MS 10-21 13:41
PROVIDERS: Internal Medicine; Admitting Provider Family Medicine; Emergency Provider Student in an Organized Health Care Education/Training Program; PCP Internal Medicine; Visit Provider Family Medicine
DX: M86.8X7 Other osteomyelitis, ankle and foot (principal); L89.624 Pressure ulcer of left heel, stage 4; M84.475A Pathological fracture, left foot, initial encounter for fracture; E87.1 Hypo-osmolality and hyponatremia; D51.9 Vitamin B12 deficiency anemia, unspecified; J44.9 Chronic obstructive pulmonary disease, unspecified; I10 Essential (primary) hypertension; E78.00 Pure hypercholesterolemia, unspecified; Z66 Do not resuscitate; G47.00 Insomnia, unspecified; G25.2 Other specified forms of tremor; G62.9 Polyneuropathy, unspecified; I65.21 Occlusion and stenosis of right carotid artery; H81.13 Benign paroxysmal vertigo, bilateral; K21.9 Gastro-esophageal reflux disease without esophagitis; F17.290 Nicotine dependence, other tobacco product, uncomplicated; F10.11 Alcohol abuse, in remission; I95.1 Orthostatic hypotension
CPT/HCPCS: 20240; 36415; 36569; 80048; 80053; 84145; 85652; 87040; 87077; 87493; 87505; 87635; 93005; 96361; 96365; 97162; 99285; J1650; 71045; 73700; 80202; 81003; 81015; 83605; 83735; 84295; 85025; 86140; 87070; 87186; 87205; 93010; 93971; 99233; 99239; J2997; J3475

== ENCOUNTER 2021-10-24 15:33 | Inpatient (IN) | payer MEDICARE, SELFPAY ==
--- NOTE | 2021-10-24 13:15 | CMSCP_ITS ---
- If Service Date Differs Date of service: 10/24/21 Time of Service: 13:15 Swingbed Plan of Care Plan of care: SWING BED PROGRAM ACTIVITIES/DISCHARGE PLAN OF CARE ACTIVITIES PLAN Date: 10/24/21 Identified Need: Individualized activities to support life enrichment during prolonged hospital stay. Intervention/Plan: Phone in room, TV, Remote and TV Guide and will offer other items and activities for life enrichment. Initials DL DISCHARGE PLAN Date: 10/24/21 Identified Need: Tyler will remain at [facility] for IV ABX Intervention/Plan: Tyler will receive IV abx, course of care to be determined. Initials DL
--- NOTE | 2021-10-24 13:16 | CM.SBPSYCH ---
- If Service Date Differs Date of service: 10/24/21 Time of Service: 13:16 SB Psychosocial/Act.Assessment - Hospital Admission Admission Date: 10/19/21 Admission From:: Inpatient Diagnosis:: Sepsis, osteomyelitis. - Swing Bed Admission Swing Bed Admit Date:: 10/24/21 Swing Bed Level of Care: Level 1/SNF - Social Supports PREVIOUS FUNCTIONAL STATUS/SOCIAL/FAMILY SUPPORTS:: Tyler lives alone in the [facility] [address] in [facility] He was in the and worked in the [employer] for 50 years and is now retired. Tyler shares that he has lots of friends who are supportive, but no family, at least locally. Tyler is independent with his ADLs at baseline. - Education Highest Grade Completed:: 8th grade Where did you attend School:: In [place] - Work History Employment Status:: Retired [employer] - : Yes 's Spouse: Yes - Benefits Financial: Medicare, [facility] Health Benefits - Advance Directives for Healthcare If no AD, do you want more information:: No - Interests TV/Movies:: Enjoys watching TV, nothing in particular. - Present Functional Status Physical Abilities:: Able to turn and reposition independently. Ability to ambulate is limited due to foot infection Cognitive:: Understands Concepts. Memory Intact Communication:: Speech is clear and appropriate, No deficits noted. Behavior:: Mood is calm, pleasant and appropriate - Medical History PAST MEDICAL HISTORY/PAST SURGICAL HISTORY:: All Active Problems: Anemia (Chronic), Osteomyelitis of left foot (Acute),. DNR (do not resuscitate) (Acute), Health insurance with [facility] (Acute), Acute exacerbation of chronic obstructive pulmonary disease (COPD) (Acute), Pneumonia (Acute), Wernicke encephalopathy (Acute), Insomnia (Acute), Intention tremor (Chronic),. COPD exacerbation (Acute), Hypertension (Chronic), Pain (Acute), Syncope (Acute), Fracture of rib of left side (Chronic), Laceration of right thumb (Acute), Thoracic vertebral fracture (Acute), Peripheral neuropathy (Chronic), Peripheral vertigo of both ears (Acute), Stenosis of right internal carotid artery (Acute), Discharge planning issues (Acute), DVT prophylaxis (Acute), Dizziness (Acute), Chest pain (Acute), Alcohol abuse (Chronic),. Community acquired pneumonia (Acute), COPD (chronic obstructive pulmonary disease) (Chronic), Hyponatremia (Acute), and Pancytopenia (Acute). Medical History: Alcohol abuse, GERD (gastroesophageal reflux disease),. HTN (hypertension), Hx of hyperlipidemia, Orthostatic hypotension, Stenosis of both internal carotid arteries, and Vertigo. Surgical History: Fracture of right hip - pinning and Hx of cholecystectomy. General Health:: Multiple co-morbidities, he is followed by the [place] Past Psychiatric Treatment:: N/A - Admission Data Reason for Swing Bed Admission:: Tyler requires IV abx and surgical intervention. He is a patient of the [facility], and was unable to transfer to the [facility] hospital due to bed availability. Discharge Plan:: Tyler will remain on IV abx. He will go to his outpatient appointment at the [place] on 10/25/21. Discharge plan of care to be discussed based on [facility] visit. 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
--- NOTE | 2021-10-24 15:39 | W.PM.HP.N ---
Date of service: 10/24/21 Time of Service: 15:39 Assessment and Plan Assessment and plan (1) Osteomyelitis of left foot: Status: Acute Assessment and plan: With an open wound on L heel. Resulting in pathologic fracture. WBC better. Afebrile. Will benefit from amputation (non emergent). No beds at the [facility], daily conversations about transfer. Dr Peter will see the patient in his office on 10/25 at 11:30 am. Continue empiric vancomycin/cefepime. Blood recultured yesterday - NGTD, wound cx: Staph aureus, E. faecium and another enterococcus species, vanco sensitive to all 3. (2) Orthostatic hypotension: Status: Acute Assessment and plan: Better. Continue current dose of midodrine. Euvolemic at this time. Hold BP meds. Continue monitoring orthostatic BID. Not reporting dizziness today. (3) Peripheral neuropathy: Status: Chronic Assessment and plan: Combination of B12 deficiency and alcoholic. Replete B12. Likely contributing to the origin of the wound on L ankle. (4) H/O alcohol abuse: Status: Resolved Assessment and plan: Last drink over 1.5 years ago, per patient. He is tremulous, but states that this is his chronic tremor. (5) Hypertension: Status: Chronic Assessment and plan: Continue to hold antihypertensives given orthostasis. (6) Hyponatremia: Status: Chronic Assessment and plan: Sodium remains at 132. His baseline is closer to 135. He is not sypmtomatic. (7) Anemia: Status: Chronic Assessment and plan: H/o B12 deficiency abd EtOH abuse. Replete B12. No evidence of bleeding at this time. (8) B12 deficiency anemia: Status: Acute Assessment and plan: As above (9) DVT prophylaxis: Status: Deleted Assessment and plan: SC lovenox. (10) Discharge planning issues: Status: Deleted Assessment and plan: Transfer to [facility] when bed available vs outpatient follow up while on swing bed status - appointment with Dr Peter of [facility] podiatry on October 25 at 11:30 am Full code Discussed with DR Dowd History of Present Illness History of Present Illness Chief Complaint: left heel osteomyelitis Narrative: This is a 81-year-old male patient with a past medical history significant for COPD hypertension hyper cholesterolemia chronic left heel ulcer who was transported to the emergency department after EMS was summonsed as he felt dizzy.? They did do a blood pressure check at the scene and he was noted to be hypotensive with a systolic blood pressure of 70.? He does take midodrine.? His work-up in the emergency department included evaluation of his left heel which had purulent drainage and concerning for a chronic cellulitis versus osteomyelitis.? Inflammatory markers significantly elevated and CAT scan of the foot did show a calcaneal osteomyelitis.? He was started on broad-spectrum antibiotics and admitted to the medical surgical unit for further evaluation.? He is a [facility] patient and they did try to transfer him but there was no beds available.? Orthopedics was consulted here for recommendations.? Everyone in agreement that he would benefit from amputation but the patient is wanting his procedure done at the [facility].? They continue to have no beds.? Blood cultures have remained with no growth.? Wound cultures growing staph aureus and Enterobacter 2 separate species all of which are sensitive to vancomycin which he has been receiving since admission. Hospital course has been complicated by orthostatic hypotension which has improved.? He is blood pressure medications have been placed on hold and he continues to receive midodrine.? He was found to be vitamin B12 and supplementation ordered.? He does have a history of alcohol use disorder but with no recent use and a chronic tremor at baseline. He continues to wish for a bed at the [facility] for his amputation.? He will remain here on IV antibiotics under correction until a bed becomes available.? He is being admitted to swing bed level 1 at [facility] pending bed availability at the [facility] in [place] Discharge discussed with Dr Dowd Review of Systems All systems reviewed & are unremarkable except as noted in HPI and below PFSH All Active Problems (Updated 10/25/21 @ 00:09 by ALVIN CANCINO) Orthostatic hypotension (Acute) B12 deficiency anemia (Acute) Anemia (Chronic) Osteomyelitis of left foot (Acute) DNR (do not resuscitate) (Acute) Health insurance with [facility] [employer] [facility] (Acute) Acute exacerbation of chronic obstructive pulmonary disease (COPD) (Acute) Pneumonia (Acute) Wernicke encephalopathy (Acute) Insomnia (Acute) Intention tremor (Chronic) COPD exacerbation (Acute) Hypertension (Chronic) Pain (Acute) Syncope (Acute) Fracture of rib of left side (Chronic) Laceration of right thumb (Acute) Thoracic vertebral fracture (Acute) Peripheral neuropathy (Chronic) Peripheral vertigo of both ears (Acute) Stenosis of right internal carotid artery (Acute) Dizziness (Acute) Chest pain (Acute) Alcohol abuse (Chronic) Community acquired pneumonia (Acute) COPD (chronic obstructive pulmonary disease) (Chronic) Hyponatremia (Chronic) Pancytopenia (Acute) Medical History Alcohol abuse GERD (gastroesophageal reflux disease) HTN (hypertension) Hx of hyperlipidemia Orthostatic hypotension Stenosis of both internal carotid arteries Vertigo Surgical History Fracture of right hip pinning Hx of cholecystectomy Social History Smoking/Tobacco Use Status: Current every day Tobacco Type: cigars Smoking risk assessment performed?: Yes Alcohol Intake: former Drug use: Never Substance use type: does not use Do you feel safe at home: Yes Do you feel safe in your relationship?: Yes Additional Social history: Lives in his own apartment, [address] [place] [facility] Allergies and Home Medications Allergies Allergy/AdvReac Type Severity Reaction Status Date / Time No Known Allergies Allergy Verified 10/19/21 19:37 Home Medications Medication Instructions Recorded Confirmed Type amlodipine 10 mg tablet 10 mg PO DAILY 10/25/14 10/24/21 History omeprazole 20 mg capsule,delayed 40 mg PO DAILY 10/25/14 10/24/21 History release lisinopril 10 mg tablet 10 mg PO QPM #0 tabs 07/11/20 10/24/21 Rx potassium chloride 20 mEq 20 meq PO DAILY #30 tabs 07/11/20 10/24/21 Rx tablet,extended release tamsulosin 0.4 mg capsule 0.4 mg PO HS #0 caps 07/11/20 10/24/21 Rx furosemide 20 mg tablet 20 mg PO DAILY #0 tabs 07/17/21 10/24/21 Rx albuterol sulfate 90 mcg/actuation 2 puff inhalation Q6H PRN 07/30/21 10/24/21 History aerosol inhaler nitroglycerin 0.4 mg sublingual 0.4 mg sublingual Q5M PRN 07/30/21 10/24/21 History tablet (Nitrostat) alendronate 70 mg tablet 70 mg PO QWEEK 10/20/21 10/24/21 History aspirin 81 mg tablet,delayed 81 mg PO DAILY 10/20/21 10/24/21 History release atorvastatin 40 mg tablet 40 mg PO DAILY 10/20/21 10/24/21 History calcium carbonate 500 mg-vitamin 2 tab PO DAILY 10/20/21 10/24/21 History D3 5 mcg (200 unit) tablet (Calcium 500 + D) tiotropium bromide 2.5 2 puff inhalation DAILY 10/20/21 10/24/21 History mcg/actuation mist for inhalation trazodone 100 mg tablet 300 mg PO HS 10/20/21 10/24/21 History Exam Const General: cooperative, comfortable and no acute distress Nutritional Appearance: average body habitus Orientation: alert, awake and oriented x3 HENMT Head: normal to inspection, normocephalic and atraumatic Mouth: oral mucosae normal Eyes General: appearance normal, both eyes and all related structures Resp Effort & Inspection: normal respiratory effort Cardio Rate: regular rate Rhythm: regular rhythm GI Inspection: normal to inspection Palpation: soft Auscultation: normal bowel sounds Skin Lesions: lesion noted (dressing intact) Extrem General: full ROM Psych Mental Status: mental status grossly normal Speech and Movement: speech and movement normal Mood: congruent mood Affect: normal affect
--- NOTE | 2021-10-24 18:00 | INDS_ITS ---
Date of service: 10/24/21 PT Notes Visit Reasons: Ostemoyelitis Left Calcaneous Physical Therapy Inpatient Discharge Summary Date:?10/22/2021 Dates of service: 10/21/2021 only This is a clinical summary of care provided for the duration of dates listed above. No charge was made in the completion of this documentation. Referring Doctor:? Jenny Dowd MD PT Orders: PT CONSULT: Limited ability Precautions: Standard, fall risk. Patient Profile/Admitting Diagnosis:? Patient is a 81 year old male with peripheral neuropathy, alcohol use disorder in remission, chronic wound on his left heel was trying to make his way down from his apartment on [facility] [address] [facility] [facility] to the [facility] and he felt lightheaded like he would pass out.? He has this frequently (and is prescribed midodrine) but this was severe.? He approached EMS and they took his blood pressure at 70/40 and he was brought to the ED. He cannot feel his feet related to neuropathy, and has no pain in the wound.? He was getting wound care weekly and follow up with [place]iatry through the [place] and was using medi-honey.? He has had a wound since a pressure sore opened up while at [facility] in July 2021.? He denies fever but he has been getting night sweats and has had poor appetite for the past several days.? No trauma reported to that foot. PMHX: PFSH All Active Problems?(Updated 10/20/21 @ 01:55 by Dontae Galdamez) Anemia (Chronic) Osteomyelitis of left foot (Acute) DNR (do not resuscitate) (Acute) Health insurance with [employer] (Acute) Acute exacerbation of chronic obstructive pulmonary disease (COPD) (Acute) Pneumonia (Acute) Wernicke encephalopathy (Acute) Insomnia (Acute) Intention tremor (Chronic) COPD exacerbation (Acute) Hypertension (Chronic) Pain (Acute) Syncope (Acute) Fracture of rib of left side (Chronic) Laceration of right thumb (Acute) Thoracic vertebral fracture (Acute) Peripheral neuropathy (Chronic) Peripheral vertigo of both ears (Acute) Stenosis of right internal carotid artery (Acute) Discharge planning issues (Acute) DVT prophylaxis (Acute) Dizziness (Acute) Chest pain (Acute) Alcohol abuse (Chronic) Community acquired pneumonia (Acute) COPD (chronic obstructive pulmonary disease) (Chronic) Hyponatremia (Acute) Pancytopenia (Acute) Medical History? Alcohol abuse GERD (gastroesophageal reflux disease) HTN (hypertension) Hx of hyperlipidemia Orthostatic hypotension Stenosis of both internal carotid arteries Vertigo Surgical History? Fracture of right hip pinningHx of cholecystectomy ? Social History/Home Situation: Lives alone on the second floor of an apartment building in [place] with an elevator and an elevator to enter.? Patient is modified independent using his 4 wheeled walker indoors and uses his motorized wheelchair for outdoor ambulation. He has a lady who comes in once or twice a week to perform house chores and laundry. Equipment Owned/DME: Motorized wheelchair, 4WW Subjective: NT. See most recent ACCOUNTING SYSTEMS ANALYST notes. Objective:? General Observation:? ? NT. See most recent ACCOUNTING SYSTEMS ANALYST notes. Mental Status: NT. See most recent ACCOUNTING SYSTEMS ANALYST notes. Pain: NT. See most recent ACCOUNTING SYSTEMS ANALYST notes. Vital Signs: NT. See most recent ACCOUNTING SYSTEMS ANALYST notes. ROM: Right Upper Extremity: ? Shoulder Flexion WFL. Shoulder abduction WFL. Elbow flexion WFL. Wrist flexion WFL. Functional opening and closing of hand WFL. Left Upper Extremity:? Shoulder Flexion WFL. Shoulder abduction WFL. Elbow flexion WFL. Wrist flexion WFL. Functional opening and closing of hand WFL.? Pain at end range of L shoulder ROM. Right Lower Extremity: Hip flexion WFL. Hip abduction WFL. Knee flexion WFL. Ankle dorsiflexion WFL. Ankle plantarflexion WFL. Left Lower Extremity: Hip flexion WFL. Hip abduction WFL. Knee flexion WFL. Ankle dorsiflexion WFL. Ankle plantarflexion WFL. Strength: Right Upper Extremity: Shoulder flexors 4/5. Shoulder abductors 4-/5. Elbow flexors 4/5. Elbow extensors 4/5. Brazing Machine Setter strong. Left Upper Extremity: Shoulder flexors 4/5. Shoulder abductors 4-/5. Elbow flexors 4/5. Elbow extensors 4/5. Brazing Machine Setter strong. Right Lower Extremity: Hip flexors 4-/5. Hip abductors 4-/5. Knee flexors 4-/5. Knee extensors 4-/5. Ankle dorsiflexors 4-/5. Ankle plantarflexors 4-/5. Left Lower Extremity: Hip flexors 4-/5. Hip abductors 4-/5. Knee flexors 4-/5. Knee extensors 4-/5. Ankle dorsiflexors 4-/5. Ankle plantarflexors 4-/5. Sensation:?Diminished sensation bilateral lower extremities secondary to peripheral neuropathy.? No pain radiation to lower extremities. Bed Mobility/Transfers:?? Rolling: Independent Supine to sit: From front wheel walker min assist x1 with HOB at 40 degrees.?? Sit to stand: minimal assist of 1 for front wheel walker Stand to sit: standby assist ? Gait:? Only tolerated 3 sidesteps using front wheeled walker with full weightbearing requiring minimal assistance to with report unsteadiness.?? Balance:? Static Sitting: Normal Dynamic Sitting: Good Static Standing: Fair Dynamic Standing: Poor Assessment:?? Patient is discharged from services due to persistent non-compliance and refusal to wrok with PT. Only received PT evalaution and refused any further attempts at treatment. Patient presents with clinical signs and symptoms consistent with current/admitting diagnoses sepsis and osteomyelitis left foot that have resulted to mobility limitations, gait instability, generalized weakness, and overall ADL decline as demonstrated by the following impairment level findings: 1.? Decreased strength to B LE major muscle groups 2.? Impaired standing balance 3.? Impaired activity tolerance 4.? Swelling Impairments are contributing to the following functional limitations: 1.? Decline in transfer skills 2.? Difficulty with ambulation without assistive device and physical assistance 3.? Increased completion time for mobility ADL performance 4.? Increased risk for falls 5.? Difficulty with managing steps alone safely Patient is assessed as a [id number] moderate complexity based on the following: History: 81-year-old male with past medical history as indicated above Examination: Demonstrable impairment in strength, balance, and mobility level with underlying impairments and functional limitations as exhibited above as well as deficit score of 47% utilizing the [facility] Mobility Inpatient Short Form Presentation: Evolving Decision Makin moderate complexity Goals: Goals X1 week 1. Supine-Sit independent NOT MET 2. Sit-Supine independent NOT MET 3. Sit-Stand independent NOT MET 4. Stand-Sit independent NOT MET 5. Bed-Chair supervision with 4WW NOT MET 6. Chair-Bed supervision with 4WW NOT MET 7. Gait supervision with 4WW NOT MET DISCHARGE RECOMMENDATIONS:?? X ? Home with services HHPT Patient will benefit from home health PT services in order to progress mobility level using least restrictive assistive ambulatory device, assess home safety, identify additional equipment needs, and establish a functional maintenance program that will increase ability of patient to remain at home. ? TREATMENT CODE/TIME: IN Thank you for the opportunity to participate in the care of this patient. Cat Salmeron PT, DPT, CLT [facility] [place], [place]
[2021-10-24] MEDS: Midodrine 2.5 MG TAB 5 MG PO (19:25)
[2021-10-24] MEDS: Magnesium Chloride 64 MG TABCR PO (19:26)
[2021-10-24] MEDS: Normal Saline Flush 10 ML SYR IVP (19:26)
[2021-10-24] MEDS: Acetaminophen 500 MG TAB 1000 MG PO (19:26)
[2021-10-24 20:00] LABS: Vancomycin, Trough 17.4 ug/mL (10.0-20.0)
[2021-10-24] MEDS: VANCOMYCIN/WATER (PEG) 1 GM/200 ML BAG IV (20:47)
[2021-10-24] MEDS: Tamsulosin 0.4 MG CAPCR PO (22:51)
[2021-10-24] MEDS: traZODone 50 MG TAB 300 MG PO (22:51)
[2021-10-24] MEDS: Melatonin 3 MG TAB PO (22:51)
[2021-10-24] MEDS: CEFEPIME 2 GM in Normal Saline 100 ML IVPB (22:53)
[2021-10-24 22:54] VITALS: BP 129/67; PULSE 79; RESP 18; TEMP 37.3; O2SAT 96
[2021-10-25] MEDS: CEFEPIME 2 GM in Normal Saline 100 ML IVPB (06:37)
[2021-10-25 07:34] VITALS: BP 118/71; PULSE 95; RESP 20; TEMP 37.1; O2SAT 97
--- NOTE | 2021-10-25 10:49 | NT_ITS ---
Date of service: 10/25/21 Time of Service: 10:49 PT Notes Visit Reasons: Ostemoyelitis Left Calcaneous Patient is out of facility and will be evaluated for PT when he returns. Thank you for the opportunity to participate in the care of this patient. Cat Salmeron PT, DPT, CLT [facility] [place], [place]
--- NOTE | 2021-10-25 16:17 | NT_ITS ---
Date of service: 10/25/21 Time of Service: 16:17 PT Notes Visit Reasons: Ostemoyelitis Left Calcaneous Still has not returned back from appointment as of 16:18 PM. Will recheck patient tomorrow morning for ordered PT evaluation under swing bed level I. Thank you for the opportunity to participate in the care of this patient. Cat Salmeron PT, DPT, CLT [facility] [place], [place]
--- NOTE | 2021-10-25 16:51 | NUR.NOTE ---
Nursing Note:[id number] [facility] emergency room nurse. 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 Lindsey relayed that the pt was transferred from Dr Peter's office to their ER via wheelchair and that now the current plans is to have pt admitted to the hospital but their is no current orders as of this time for this admission. Lindsey states she will call [facility] med/surg at [phone] when she gets admission orders for this pt to their hospital. Yue Weston CNP was updated. Yue Weston CNP states she will discharge the patient when it is [facility].
--- NOTE | 2021-10-25 18:16 | W.PM.PROGNOT ---
Date of Service Date of service: 10/25/21 Time of Service: 18:16 Assessment and Plan Assessment and plan (1) Osteomyelitis of left foot: Status: Acute Assessment and plan: patient not seen today as he had left for his scheduled outpatient appointment with podiatry at the [facility] today as scheduled prior to my arrival. The ED at the [facility] has requested medical records, so I suspect he was sent to the ED for possible admission there. Have not been notified that patient was admitted by the end of my shift. Nursing supervisor sewing room to follow up on his disposition. discussed with Dr Izaguirre Objective Last Vital Signs Temp 37.1 C 10/25/21 07:34 Pulse 95 H 10/25/21 07:34 Resp 20 10/25/21 07:34 BP 118/71 10/25/21 07:34 Pulse Ox 97 10/25/21 07:34 Laboratory Results - last 24 hr 10/24/21 19:35 Vancomycin Trough 17.4
--- NOTE | 2021-10-25 18:34 | DSE_ITS ---
Date of service: 10/25/21 Time of Service: 18:34 DS: Diagnosis Discharge Diagnosis (1) Osteomyelitis of left foot: Status: Acute Discharge Plan Disposition Patient Disposition: [facility] [place] Condition: Stable Discharge Details Reason For Visit: Ostemoyelitis Left Calcaneous Admit Date/Time: 10/24/21 15:33 Admit Provider: Jenny Dowd Attending Provider: Jenny Dowd Primary Care Provider: Brad Morrow Hospital Course Hospital Course: This is a 81-year-old male patient with a past medical history significant for COPD hypertension hyper cholesterolemia chronic left heel ulcer who has been hospitalized here with left calcaneal osteomyelitis being treated with vancomycin and cefepime. Wound cultures growing staph aureus and Enterobacter 2 separate species all of which are sensitive to vancomycin which he has been receiving since admission. He is normally followed by podiatry at the [place] and arrangements for transfer for amputation were delayed d/t bed availability. He remained here for IV antibiotics until his outpatient appointment on 10/25/2021 and he was transported the appointment by [facility]. apparently they decided he should stay admitted down there rather than return here and he was sent to their ED for evaluation. records were requested and sent accordingly. Of note, hospital course has been complicated by orthostatic hypotension which has improved.? He is blood pressure medications have been placed on hold and he continues to receive midodrine.? He was found to be vitamin B12 and suppl ementation ordered.? He does have a history of alcohol use disorder but with no recent use and a chronic tremor at baseline. We have been notified by the [facility] that the Mr Pratt was admitted to the [place] hospital. I will discharge him from our system. Discharge discussed with DR Izaguirre. Home Meds and New Rx's Prescriptions: Continued nitroglycerin [Nitrostat] 0.4 mg tablet, sublingual 0.4 mg Sublingual Q5M PRN Rx Instructions: for chest pain amlodipine 10 MG tablet 10 mg PO DAILY omeprazole 20 MG capsule,delayed release(DR/EC) 40 mg PO DAILY Label Comments: Pt. states that he doesn't take this medication. albuterol sulfate 90 mcg/actuation HFA aerosol inhaler 2 puff INHALATION Q6H PRN aspirin 81 mg Tablet,Delayed Release (Dr/Ec) 81 mg PO DAILY atorvastatin 40 mg Tablet 40 mg PO DAILY alendronate 70 mg Tablet 70 mg PO QWEEK calcium carbonate-vitamin D3 [Calcium 500 + D] 500 mg-5 mcg (200 unit) Tablet 2 tab PO DAILY tiotropium bromide 2.5 mcg/actuation Mist 2 puff INHALATION DAILY trazodone 100 mg Tablet 300 mg PO HS potassium chloride 20 mEq tablet extended release 20 meq PO DAILY Qty: 30 0RF tamsulosin 0.4 mg Capsule 0.4 mg PO HS Qty: 0 0RF lisinopril 10 MG tablet 10 mg PO QPM Qty: 0 0RF furosemide 20 mg Tablet 20 mg PO DAILY Qty: 0 0RF Discharge Instructions Instructions: Osteomyelitis (DC) Activity:: Activity as Tolerated Equipment/Supplies:: No Equipment Needed Diet:: As Tolerated Discharge Orders Discharge Orders: Discharge Order (Routine); Ordered 10/25/21 Ordered By: Mikayla Weston DS: Summary Time Spent with Patient providing and/or coordinating discharge services: Less than 30 minutes Status at Discharge Functional status at discharge: uses cane/walker Overall status at discharge: patient is not back to baseline Mental Status: mental status grossly normal Speech and Movement: speech and movement normal Mood: congruent mood Affect: normal affect Exam Narrative Exam Narrative: patient not seen today, had left for his appointment prior to my arrival to the hospital. Psych Mental Status: mental status grossly normal Speech and Movement: speech and movement normal Mood: congruent mood Affect: normal affect DS: Data Vitals/I&O Vitals and I&O: Vital Signs Temperature 37.1 C 10/25/21 07:34 Temperature Source Tympanic 10/25/21 07:34 Pulse 95 H 10/25/21 07:34 Pulse Rhythm Regular 10/25/21 05:00 Respiratory Rate 20 10/25/21 07:34 Respiratory Effort 10/25/21 05:00 Respiratory Depth Normal 10/25/21 05:00 Respiratory Pattern Normal 10/25/21 05:00 Blood Pressure 118/71 10/25/21 07:34 Pulse Oximetry 97 10/25/21 07:34 Oxygen Delivery Method Room Air 10/25/21 07:34 Oxygen Flow Rate 0 10/25/21 07:34 Pain Level 0 10/25/21 07:34 Intake & Output 10/24/21 10/25/21 10/25/21 23:59 11:59 23:59 Intake Total 620 / 620 300 / 300 Output Total 350 / 350 500 / 500 Balance 270 / 270 -200 / -200 Weight 80.8 kg Intake: IV 140 / 140 100 / 100 Oral 480 / 480 200 / 200 Output: Urine 350 / 350 500 / 500 Other: Urine Color Yellow Pale Urine Appearance Cloudy Clear Urine Odor Normal Normal Voiding Methods Urinal Urinal Data Completed and Pending Labs on day of discharge: Labs from last 24 hours 10/24/21 19:35 Vancomycin Trough 17.4 PFSH All Active Problems (Updated 10/25/21 @ 00:09 by ALVIN CANCINO) Orthostatic hypotension (Acute) B12 deficiency anemia (Acute) Anemia (Chronic) Osteomyelitis of left foot (Acute) DNR (do not resuscitate) (Acute) Health insurance with [employer] (Acute) Acute exacerbation of chronic obstructive pulmonary disease (COPD) (Acute) Pneumonia (Acute) Wernicke encephalopathy (Acute) Insomnia (Acute) Intention tremor (Chronic) COPD exacerbation (Acute) Hypertension (Chronic) Pain (Acute) Syncope (Acute) Fracture of rib of left side (Chronic) Laceration of right thumb (Acute) Thoracic vertebral fracture (Acute) Peripheral neuropathy (Chronic) Peripheral vertigo of both ears (Acute) Stenosis of right internal carotid artery (Acute) Dizziness (Acute) Chest pain (Acute) Alcohol abuse (Chronic) Community acquired pneumonia (Acute) COPD (chronic obstructive pulmonary disease) (Chronic) Hyponatremia (Chronic) Pancytopenia (Acute) Medical History Alcohol abuse GERD (gastroesophageal reflux disease) HTN (hypertension) Hx of hyperlipidemia Orthostatic hypotension Stenosis of both internal carotid arteries Vertigo Surgical History Fracture of right hip pinning Hx of cholecystectomy Social History Smoking/Tobacco Use Status: Current every day Tobacco Type: cigars Smoking risk assessment performed?: Yes Alcohol Intake: former Drug use: Never Substance use type: does not use Do you feel safe at home: Yes Do you feel safe in your relationship?: Yes Additional Social history: Lives in his own apartment, [address] [place] [facility]
--- NOTE | 2021-10-25 18:52 | NUR.NOTE ---
Nursing Note: At [facility] ER nurseLindsey called and reported to med/surg engineering secretary Manoj Ruiz that this pt has been admitted to their hospital, pt's provider Yue Weston, UTILIZATION SPECIALIST updated.
--- NOTE | 2021-10-25 19:15 | NUR.NOTE ---
Nursing Note: received report on patient from night nurse, got patient dressed and ready for transport at 0730 to [place].
--- NOTE | 2021-10-26 08:56 | NT_ITS ---
Date of service: 10/26/21 PT Notes Visit Reasons: Ostemoyelitis Left Calcaneous Patient admitted to the [facility] per hospitalist notes. No skilled services were provided for this SB1 referral. Thank you for the opportunity to participate in the care of this patient. Cat Salmeron PT, DPT, CLT [facility] [place], [place]
== END 2021-10-25 18:37 | disposition short-term general hospital (02) | DRG 539 ==
PROVIDERS: Nurse Practitioner Acute Care; Admitting Provider Internal Medicine; PCP Internal Medicine; Visit Provider Internal Medicine
DX: M86.8X7 Other osteomyelitis, ankle and foot (principal); L89.624 Pressure ulcer of left heel, stage 4; E87.1 Hypo-osmolality and hyponatremia; I95.1 Orthostatic hypotension; G62.9 Polyneuropathy, unspecified; I10 Essential (primary) hypertension; F10.11 Alcohol abuse, in remission; D51.8 Other vitamin B12 deficiency anemias; J44.9 Chronic obstructive pulmonary disease, unspecified; E78.00 Pure hypercholesterolemia, unspecified; Z66 Do not resuscitate; G25.2 Other specified forms of tremor; H81.13 Benign paroxysmal vertigo, bilateral; I65.21 Occlusion and stenosis of right carotid artery; B95.61 Methicillin susceptible Staphylococcus aureus infection as the cause of diseases classified elsewhere; B96.89 Other specified bacterial agents as the cause of diseases classified elsewhere
CPT/HCPCS: 99306; 99315; 80202

== ENCOUNTER 2022-03-03 20:05 | Inpatient (IN) | payer OTHER, SELFPAY ==
[2022-03-03] VITALS (37 sets, daily range): BP systolic 101–118; BP diastolic 49–65; PULSE 79–102; RESP 17–29; TEMP 36.8–37.7; O2SAT 91–94
--- NOTE | 2022-03-03 20:00 | RT.EKG_ITS ---
APPROVED REPORT Exam: Resting ECG Reason for Exam: sob Patient Location: E HR:94 bpm ECG Measurements Heart Rate 94 AXIS KS 166 P 34 QRSd 91 QRS 33 QT 352 T 20 QTc 441 Conclusion Sinus arrhythmia...V-rate 84-117, variation>10% Physician: no stemi, stable
--- NOTE | 2022-03-03 20:15 | DI.RAD_ITS ---
Exam(s) XR PORTABLE CHEST AP EXAM: XR PORTABLE CHEST AP CLINICAL HISTORY: sob, cough. TECHNIQUE: 2D digital imaging was performed. COMPARISON: Prior chest x-ray 10/22/2021 FINDINGS: Single AP portable view. Heart size is upper normal. The mediastinum is not widened. Bilateral calcified pleural plaques again noted, also again noted be more prominent on the left side, unchanged. There are no new confluent infiltrates nor pleural effusions. No pulmonary edema. No pneumothorax. IMPRESSION: No acute pulmonary findings on this single AP portable view of the chest. Calcified pleural plaques again noted bilaterally. If clinically indicated follow-up CT scan can be performed. DATA REPOSITORY: RADIATION DOSE DELIVERED:
[2022-03-03 20:50] LABS: Abs Immature Grans 1.56 10^3/uL (0.0-0.06); HCT 36.3 % (40.0-50.0); HGB 11.3 g/dL (13.5-17.5); MCH 27.1 pg (27.0-33.0); MCHC 31.1 % (32.0-36.0); MCV 87 fL (80-95); MPV 10.5 fL (8.0-11.0); Platelet Count 203 10^3/uL (130-400); RBC 4.17 10^6/uL (4.36-5.78); RDW-SD 51.5 fL
[2022-03-03 20:52] LABS: WBC 39.99 10^3/uL (4.4-10.8)
[2022-03-03 21:00] LABS: Absolute Neutrophil Count 34.39 10^3/uL (1.2-6.7); Bands % 22; Lactate 7.4 mmol/L (0.6-1.4)
--- NOTE | 2022-03-03 21:00 | NUR.NOTE ---
CRITICAL VALUE = Lactate = 7.4. Daron HERNANDEZ notified.
[2022-03-03 21:01] LABS: Diff Comment Manual Differential; Metamyelocytes % 2; RBC Morphology Normal
--- NOTE | 2022-03-03 21:15 | DI.VRAD_ITS ---
PROCEDURE INFORMATION: Exam: XR Chest Exam date and time: 03/03/2022 8:34 PM Age: 82 years old Clinical indication: Cough and shortness of breath TECHNIQUE: Imaging protocol: Radiologic exam of the chest. Views: 1 view. COMPARISON: CR XR PORTABLE CHEST AP 10/22/2021 12:17 PM FINDINGS: Lungs: Unremarkable. No consolidation. Pleural spaces: Bilateral calcified pleural plaques as previously demonstrated. No pleural effusion. No pneumothorax. Heart/Mediastinum: Unremarkable. No cardiomegaly. Bones/joints: Degenerative changes. IMPRESSION: No acute findings. Dictated and Authenticated by: Marcus Juarez MD. Ordering:MILLIE Pierre MD
[2022-03-03 21:29] LABS: Troponin I 91 ng/L (<or=60)
[2022-03-03 21:30] LABS: Influenza A PCR Negative (Negative); Influenza B PCR Negative (Negative); RSV PCR Negative (Negative)
[2022-03-03 21:32] LABS: AST 23 U/L (15-37); Albumin 2.5 g/dL (3.4-5.0); Alkaline Phosphatase 113 U/L (46-116); Anion Gap 13.4 mmol/L (3-11); BUN 20 mg/dL (7-18); Bilirubin, Total 0.6 mg/dL (0.2-1.0); CO2 22.6 mmol/L (21.0-32.0); Calcium 8.5 mg/dL (8.5-10.1); Chloride 100 mmol/L (98-107); Estimated GFR 33.12 (mL/min/1.73m2); Glucose 143 mg/dL (74-106); NT-proBNP 9945 pg/mL (<300); Potassium 3.5 mmol/L (3.5-5.1); Sodium 136 mmol/L (136-145); Total Protein 6.8 g/dL (6.4-8.2)
[2022-03-03 21:35] LABS: Source Nasopharynx
[2022-03-03 21:36] LABS: COVID-19 PCR Positive (Negative)
[2022-03-03] MEDS: PIPERACILLIN/TAZO 3.375 GM in Normal Saline 50 ML IVPB (21:45)
[2022-03-03 21:50] LABS: ALT 14 U/L (16-63)
[2022-03-03 21:53] LABS: Bilirubin Negative (Negative); Blood Moderate (Negative); Glucose Negative (Negative); Ketones Trace mg/dL (Negative); Leukocyte Esterase Moderate (Negative); Nitrite Negative (Negative); Specific Gravity >= 1.030 (1.005-1.025)
--- NOTE | 2022-03-03 21:54 | NUR.NOTE ---
per triage note Pt states he has not been able to take care of himself due to increased weakness and not feeling well, congested cough with fevers at home. Pt able to use urinal without assistance, urine dark. blood cultures x2 drawn, IV abx infusing. Pt given update on POC +COVID Nursing Note:
[2022-03-03 21:55] LABS: Procalcitonin 41.7 ng/mL
[2022-03-03 22:01] LABS: C & S Indicated? Yes; Clarity Cloudy (Clear); WBC >50 HPF (0-5)
[2022-03-03] MEDS: DOXYCYCLINE 100 MG in Normal Saline 100 ML IVPB (22:22)
--- NOTE | 2022-03-03 22:29 | W.ED.GENAD ---
Discharge Plan Disposition Patient Disposition: Admit to [facility] Condition: Improving Discharge Details Clinical Impression: Sepsis, Acute UTI, Pneumonia due to COVID-19 virus, Bandemia Primary Care Provider: Brad Morrow ED Provider: Ignacio Neri Home Meds and New Rx's Prescriptions: No Action nitroglycerin [Nitrostat] 0.4 mg tablet, sublingual 0.4 mg Sublingual Q5M PRN Rx Instructions: for chest pain amlodipine 10 MG tablet 10 mg PO DAILY omeprazole 20 MG capsule,delayed release(DR/EC) 40 mg PO DAILY Label Comments: Pt. states that he doesn't take this medication. albuterol sulfate 90 mcg/actuation HFA aerosol inhaler 2 puff INHALATION Q6H PRN aspirin 81 mg Tablet,Delayed Release (Dr/Ec) 81 mg PO DAILY atorvastatin 40 mg Tablet 40 mg PO DAILY alendronate 70 mg Tablet 70 mg PO QWEEK calcium carbonate-vitamin D3 [Calcium 500 + D] 500 mg-5 mcg (200 unit) Tablet 2 tab PO DAILY tiotropium bromide 2.5 mcg/actuation Mist 2 puff INHALATION DAILY trazodone 100 mg Tablet 300 mg PO HS potassium chloride 20 mEq tablet extended release 20 meq PO DAILY Qty: 30 0RF tamsulosin 0.4 mg Capsule 0.4 mg PO HS Qty: 0 0RF lisinopril 10 MG tablet 10 mg PO QPM Qty: 0 0RF furosemide 20 mg Tablet 20 mg PO DAILY Qty: 0 0RF Medical Decision Making This is an 82-year-old male with a past medical history of COPD, previous alcohol abuse, GERD, hypertension, vascular disease, 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 He states that the symptoms have been present for the last day. He admits to a productive cough with notable sputum. He is also noticed some mild right leg swelling. He admits to generalized fatigue. He denies any abdominal pain, headache or chest pain. He denies any tearing or ripping sensation. He denies any numbness or tingling. No other complaints at this time. No other modifying factors. Exam demonstrates rhonchorous breath sounds with some crackles bilaterally, borderline fever, differential is highest for UTI, pneumonia. EKG shows no signs of STEMI. Will evaluate for concerning etiologies, monitor closely and reassess. 10:35 pm Laboratory work-up is returned, patient has a drastically elevated white count at 40, which is notably higher than normal for him. Notable left shift with 22 bands. Lactate is high at 7.4, electrolytes stable, creatinine has jumped to 2 which is definitely higher than his baseline of 0.7. Procalcitonin is notably elevated at 41 troponin is mildly elevated at 91 which likely represents some mild demand ischemia. proBNP is high at 10,000 which is also atypical for him. Urinalysis shows notable urinary tract infection with greater than 50 WBCs, leuk esterase, but negative nitrites, COVID is positive, flu and RSV is negative. Chest x-ray is read by virtual radiology as no acute component, however I notably disagree with this both clinically and upon review of the radiographic evidence. I do feel that there are scattered infiltrates that are new compared to the prior old chest x-ray. On both the right and the left. We will start broad-spectrum antibiotics vancomycin, Zosyn, and doxycycline, as well as remdesivir. Surprisingly the patient's heart rate is stable at 90, oxygenation stable at 92, blood pressure is remaining in the low 100s at 110 systolic. I do not feel that he would be a good candidate for MedSurg admission here, we do not have any ICU beds. We did reach out to the [place] and they do not have any availability now, but may have availability at 9 AM. No other local hospitals have any availability for additional ICU or stepdown beds. [facility] is at capacity and unable to accept any transfers currently, [facility] was also contacted and I discussed the case with Dr. Avalos and Dr. Shaffer, and at this time they state that the patient does not yet meet ICU criteria. They recommend contacting them back if he has any continued decline. I did discuss my concerns that with the patient's age, comorbidities, and multiple concerning laboratory findings, as well as evaluation of his clinical status that he will likely be transitioning to a notably negative and precipitous decline. They understand this and recommend that we contact them back if this does occur. We will continue to hold the patient in the ED for the time being. 3:08 AM Patient has had a notably unexpected clinical course. Instead of decompensating which was my expectation based on his labs he is actually notably improved after broad-spectrum antibiotics and remdesivir. Patient's heart rate has gone down to the 90s, blood pressure has increased to the 120s to 130s, respirations remained stable, oxygenation remained stable. Patient is feeling better, he is ambulating in his room with assistance. Is mental status remains sharp and stable. He appears to be notably clinically improving. Patient will still clearly not qualify for [facility] ICU, and in fact at this stage he would qualify for MedSurg placement here. I discussed the case with the hospitalist, and at this time on clinical assessment the patient is stable for admission to [facility]. I discussed the case with the hospitalist Dr. Earl, he agrees with the assessment and plan. We will continue to monitor the patient while he was down here, I will place orders on Dr. Earl behalf for admission. I have extensively reviewed the treatment plan with the patient. I have addressed all patient concerns at this time. I have also discussed the plan with the admitting physician and they agree with the current assessment and plan and have agreed to assume responsibility for the patient. All parties demonstrate verbal understanding and agreement with our assessment and plan at this time. The documentation in this chart was dictated using [employer] dictation software. Please excuse any dictation errors. Of note repeat lactate has dropped down to 3. Patient on reassessment is notably clinically improved. Sign Out No HPI General Date/Time Provider Initiated Documentation: 03/03/22 20:23. 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 He states that the symptoms have been present for the last day. He admits to a productive cough with notable sputum. He is also noticed some mild right leg swelling. He admits to generalized fatigue. He denies any abdominal pain, headache or chest pain. He denies any tearing or ripping sensation. He denies any numbness or tingling. No other complaints at this time. No other modifying factors. Related Data Home Medications Medication Instructions Recorded Confirmed amlodipine 10 mg tablet 10 mg PO DAILY 10/25/14 10/24/21 omeprazole 20 mg capsule,delayed 40 mg PO DAILY 10/25/14 10/24/21 release lisinopril 10 mg tablet 10 mg PO QPM #0 tabs 07/11/20 10/24/21 potassium chloride 20 mEq 20 meq PO DAILY #30 tabs 07/11/20 10/24/21 tablet,extended release tamsulosin 0.4 mg capsule 0.4 mg PO HS #0 caps 07/11/20 10/24/21 furosemide 20 mg tablet 20 mg PO DAILY #0 tabs 07/17/21 10/24/21 albuterol sulfate 90 mcg/actuation 2 puff inhalation Q6H PRN 07/30/21 10/24/21 aerosol inhaler nitroglycerin 0.4 mg sublingual 0.4 mg sublingual Q5M PRN 07/30/21 10/24/21 tablet (Nitrostat) alendronate 70 mg tablet 70 mg PO QWEEK 10/20/21 10/24/21 aspirin 81 mg tablet,delayed 81 mg PO DAILY 10/20/21 10/24/21 release atorvastatin 40 mg tablet 40 mg PO DAILY 10/20/21 10/24/21 calcium carbonate 500 mg-vitamin 2 tab PO DAILY 10/20/21 10/24/21 D3 5 mcg (200 unit) tablet (Calcium 500 + D) tiotropium bromide 2.5 2 puff inhalation DAILY 10/20/21 10/24/21 mcg/actuation mist for inhalation trazodone 100 mg tablet 300 mg PO HS 10/20/21 10/24/21 Previous Rx's Medication Instructions Recorded lisinopril 10 mg tablet 10 mg PO QPM #0 tabs 07/11/20 potassium chloride 20 mEq 20 meq PO DAILY #30 tabs 07/11/20 tablet,extended release tamsulosin 0.4 mg capsule 0.4 mg PO HS #0 caps 07/11/20 furosemide 20 mg tablet 20 mg PO DAILY #0 tabs 07/17/21 Allergies Allergy/AdvReac Type Severity Reaction Status Date / Time No Known Allergies Allergy Verified 03/04/22 02:18 General Stated Complaint: RespSymp EDITH: 3 Review of Systems All systems reviewed & are unremarkable except as noted in HPI and below PFSH All Active Problems (Updated 03/03/22 @ 22:41 by Ignacio Neri DO) Sepsis (Acute) Acute UTI (Acute) Pneumonia due to COVID-19 virus (Acute) Bandemia (Acute) Orthostatic hypotension (Acute) B12 deficiency anemia (Acute) Anemia (Chronic) Osteomyelitis of left foot (Acute) DNR (do not resuscitate) (Acute) Health insurance with [facility] (Acute) Acute exacerbation of chronic obstructive pulmonary disease (COPD) (Acute) Pneumonia (Acute) Wernicke encephalopathy (Acute) Insomnia (Acute) Intention tremor (Chronic) COPD exacerbation (Acute) Hypertension (Chronic) Pain (Acute) Syncope (Acute) Fracture of rib of left side (Chronic) Laceration of right thumb (Acute) Thoracic vertebral fracture (Acute) Peripheral neuropathy (Chronic) Peripheral vertigo of both ears (Acute) Stenosis of right internal carotid artery (Acute) Dizziness (Acute) Chest pain (Acute) Alcohol abuse (Chronic) Community acquired pneumonia (Acute) COPD (chronic obstructive pulmonary disease) (Chronic) Hyponatremia (Chronic) Pancytopenia (Acute) Medical History Alcohol abuse GERD (gastroesophageal reflux disease) HTN (hypertension) Hx of hyperlipidemia Orthostatic hypotension Stenosis of both internal carotid arteries Vertigo Surgical History Fracture of right hip pinning Hx of cholecystectomy Social History Smoking/Tobacco Use Status: Current every day Tobacco Type: cigars Smoking risk assessment performed?: Yes Alcohol Intake: former Drug use: Never Substance use type: does not use Do you feel safe at home: Yes Do you feel safe in your relationship?: Yes Additional Social history: Lives in his own apartment, [place] in [facility] Exam Narrative Exam Narrative: 1.Const: Well-nourished, Well-developed, appearing stated age 2.Eyes: PERRL, no conjunctival injection, and symmetrical lids. 3.ENT: Atraumatic external nose and ears. Dry MM. Neck: Symmetric, trachea midline, No thyromegaly. 4.CVS: +S1/S2, No murmurs or gallops. Peripheral pulses 2+ and equal in all extremities. Brisk capillary refill in all extremities. 5.RESP: Rhonchorous breath sounds, crackles in the bases bilaterally 6.GI: Soft, Nontender/Nondistended, No hepatosplenomegaly. No guarding or rebound. 7.MSK: Normocephalic left lower extremity demonstrates a below the knee amputation, no redness or erythema. Right lower extremity demonstrates trace pitting edema, no calf tenderness. Intact pulses. Capillary refill is about 3 seconds on the right. 8.Skin: Warm, Dry. No rashes or lesions. 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 Sensation grossly intact, no focal neurologic deficits. 10.Psych: (AAO) x3. Appropriate mood and affect Course Vital Signs Vital signs: Vital Signs Temperature 37.7 C H 03/03/22 20:09 Pulse 102 H 03/03/22 20:09 Respiratory Rate 22 03/03/22 20:09 Blood Pressure 113/49 L 03/03/22 20:09 Pulse Oximetry 94 03/03/22 20:09 Temperature 36.8 C 03/03/22 21:48 Temperature Source Oral 03/03/22 21:48 Pulse 94 H 03/03/22 22:24 Respiratory Rate 17 03/03/22 22:24 Respiratory Effort Accessory Muscle Use 03/03/22 20:16 Respiratory Depth Deep 03/03/22 20:16 Blood Pressure 117/58 L 03/03/22 22:24 Blood Pressure Position Sitting 03/03/22 20:09 Pulse Oximetry 93 03/03/22 22:24 Oxygen Delivery Method Room Air 03/03/22 22:24 Oxygen Flow Rate 0 03/03/22 22:24 Pain Level 0 03/03/22 21:57 Lab/Test Results Lab/Test Results: 03/03/22 21:30 Urine - Reflex from Ua Urine Culture - Pending 03/03/22 21:37 Blood Blood Culture - Pending 03/03/22 20:36 Blood Blood Culture - Pending Laboratory Tests Range/Units 03/03/22 03/03/22 03/03/22 20:36 20:36 20:36 WBC (4.4-10.8) 10^3/uL RBC (4.36-5.78) 10^6/uL Hgb (13.5-17.5) g/dL Hct (40.0-50.0) % MCV (80-95) fL MCH (27.0-33.0) pg MCHC (32.0-36.0) % RDW (11.8-14.1) % Plt Count (130-400) 10^3/uL MPV (8.0-11.0) fL Immature Gran % Neutrophils % Band Neutrophils % Lymphocytes % Monocytes % Eosinophils % Basophils % Metamyelocytes % Nucleated RBC % (0.0-0.3) % Absolute Neutrophils (1.2-6.7) 10^3/uL Absolute Lymphocytes (1.2-3.4) 10^3/uL Absolute Monocytes (0.1-0.8) 10^3/uL Absolute Eosinophils (0.0-0.7) 10^3/uL Absolute Basophils (0.0-0.2) 10^3/uL RBC Morphology VBG Lactate (0.6-1.4) mmol/L Sodium (136-145) mmol/L Potassium (3.5-5.1) mmol/L Chloride (98-107) mmol/L Carbon Dioxide (21.0-32.0) mmol/L Anion Gap (3-11) mmol/L BUN (7-18) mg/dL Creatinine (0.70-1.30) mg/dL Est GFR (CKD-EPI 2020) (mL/min/1.73m2) Glucose (74-106) mg/dL Calcium (8.5-10.1) mg/dL Total Bilirubin (0.2-1.0) mg/dL AST (15-37) U/L ALT (16-63) U/L Alkaline Phosphatase (46-116) U/L Troponin I (<or=60) ng/L 91 H* NT-Pro-B Natriuret Pep (<300) pg/mL Total Protein (6.4-8.2) g/dL Albumin (3.4-5.0) g/dL Procalcitonin ng/mL 41.7 Urine Color (Yellow) Urine Clarity (Clear) Urine pH (5-8) Ur Specific [place] (1.005-1.025) Urine Protein (Negative) mg/dL Urine Ketones (Negative) mg/dL Urine Blood (Negative) Urine Nitrite (Negative) Urine Bilirubin (Negative) Urine Urobilinogen (Up TO 0.2) EU/dL Ur Leukocyte Esterase (Negative) Urine RBC Urine WBC (0-5) HPF Ur Epithelial Cells Urine Crystals Urine Bacteria Urine Mucus Ur Culture Indicated? Urine Glucose (Negative) mg/dL COVID-19 Source Nasopharynx SARS-CoV-2 (PCR) (Negative) Positive A Influenza Type A (PCR) (Negative) Negative Influenza Type B (PCR) (Negative) Negative RSV (PCR) (Negative) Negative Range/Units 03/03/22 03/03/22 03/03/22 20:36 20:36 20:36 WBC (4.4-10.8) 10^3/uL 39.99 H* RBC (4.36-5.78) 10^6/uL 4.17 L Hgb (13.5-17.5) g/dL 11.3 L Hct (40.0-50.0) % 36.3 L MCV (80-95) fL 87 MCH (27.0-33.0) pg 27.1 MCHC (32.0-36.0) % 31.1 L RDW (11.8-14.1) % 16.0 H Plt Count (130-400) 10^3/uL 203 MPV (8.0-11.0) fL 10.5 Immature Gran % 0.0 Neutrophils % 64.0 Band Neutrophils % 22 Lymphocytes % 2.0 Monocytes % 10.0 Eosinophils % 0.0 Basophils % 0.0 Metamyelocytes % 2 Nucleated RBC % (0.0-0.3) % 0.0 Absolute Neutrophils (1.2-6.7) 10^3/uL 34.39 H Absolute Lymphocytes (1.2-3.4) 10^3/uL 0.80 L Absolute Monocytes (0.1-0.8) 10^3/uL 4.00 H Absolute Eosinophils (0.0-0.7) 10^3/uL 0.00 Absolute Basophils (0.0-0.2) 10^3/uL 0.00 RBC Morphology Normal VBG Lactate (0.6-1.4) mmol/L 7.4 H* Sodium (136-145) mmol/L 136 Potassium (3.5-5.1) mmol/L 3.5 Chloride (98-107) mmol/L 100 Carbon Dioxide (21.0-32.0) mmol/L 22.6 Anion Gap (3-11) mmol/L 13.4 H BUN (7-18) mg/dL 20 H Creatinine (0.70-1.30) mg/dL 2.0 H Est GFR (CKD-EPI 2020) (mL/min/1.73m2) 33.12 Glucose (74-106) mg/dL 143 H Calcium (8.5-10.1) mg/dL 8.5 Total Bilirubin (0.2-1.0) mg/dL 0.6 AST (15-37) U/L 23 ALT (16-63) U/L 14 L Alkaline Phosphatase (46-116) U/L 113 Troponin I (<or=60) ng/L NT-Pro-B Natriuret Pep (<300) pg/mL 9945 H Total Protein (6.4-8.2) g/dL 6.8 Albumin (3.4-5.0) g/dL 2.5 L Procalcitonin ng/mL Urine Color (Yellow) Urine Clarity (Clear) Urine pH (5-8) Ur Specific [place] (1.005-1.025) Urine Protein (Negative) mg/dL Urine Ketones (Negative) mg/dL Urine Blood (Negative) Urine Nitrite (Negative) Urine Bilirubin (Negative) Urine Urobilinogen (Up TO 0.2) EU/dL Ur Leukocyte Esterase (Negative) Urine RBC Urine WBC (0-5) HPF Ur Epithelial Cells Urine Crystals Urine Bacteria Urine Mucus Ur Culture Indicated? Urine Glucose (Negative) mg/dL COVID-19 Source SARS-CoV-2 (PCR) (Negative) Influenza Type A (PCR) (Negative) Influenza Type B (PCR) (Negative) RSV (PCR) (Negative) Range/Units 03/03/22 21:30 WBC (4.4-10.8) 10^3/uL RBC (4.36-5.78) 10^6/uL Hgb (13.5-17.5) g/dL Hct (40.0-50.0) % MCV (80-95) fL MCH (27.0-33.0) pg MCHC (32.0-36.0) % RDW (11.8-14.1) % Plt Count (130-400) 10^3/uL MPV (8.0-11.0) fL Immature Gran % Neutrophils % Band Neutrophils % Lymphocytes % Monocytes % Eosinophils % Basophils % Metamyelocytes % Nucleated RBC % (0.0-0.3) % Absolute Neutrophils (1.2-6.7) 10^3/uL Absolute Lymphocytes (1.2-3.4) 10^3/uL Absolute Monocytes (0.1-0.8) 10^3/uL Absolute Eosinophils (0.0-0.7) 10^3/uL Absolute Basophils (0.0-0.2) 10^3/uL RBC Morphology VBG Lactate (0.6-1.4) mmol/L Sodium (136-145) mmol/L Potassium (3.5-5.1) mmol/L Chloride (98-107) mmol/L Carbon Dioxide (21.0-32.0) mmol/L Anion Gap (3-11) mmol/L BUN (7-18) mg/dL Creatinine (0.70-1.30) mg/dL Est GFR (CKD-EPI 2020) (mL/min/1.73m2) Glucose (74-106) mg/dL Calcium (8.5-10.1) mg/dL Total Bilirubin (0.2-1.0) mg/dL AST (15-37) U/L ALT (16-63) U/L Alkaline Phosphatase (46-116) U/L Troponin I (<or=60) ng/L NT-Pro-B Natriuret Pep (<300) pg/mL Total Protein (6.4-8.2) g/dL Albumin (3.4-5.0) g/dL Procalcitonin ng/mL Urine Color (Yellow) Yellow Urine Clarity (Clear) Cloudy Urine pH (5-8) 6.0 Ur Specific [place] (1.005-1.025) >= 1.030 H Urine Protein (Negative) mg/dL 100 H Urine Ketones (Negative) mg/dL Trace H Urine Blood (Negative) Moderate H Urine Nitrite (Negative) Negative Urine Bilirubin (Negative) Negative Urine Urobilinogen (Up TO 0.2) EU/dL 1.0 H Ur Leukocyte Esterase (Negative) Moderate H Urine RBC Not Applicable Urine WBC (0-5) HPF >50 H Ur Epithelial Cells Not Applicable Urine Crystals Not Applicable Urine Bacteria Not Applicable Urine Mucus Not Applicable Ur Culture Indicated? Yes Urine Glucose (Negative) mg/dL Negative COVID-19 Source SARS-CoV-2 (PCR) (Negative) Influenza Type A (PCR) (Negative) Influenza Type B (PCR) (Negative) RSV (PCR) (Negative) Critical Care Time Critical Care Time Critical Care Time: Yes Total Critical Care Time: 45 Attestation: Upon my evaluation, this patient had a high probability of imminent or life-threatening deterioration, which required my direct attention, intervention, and personal management. I have personally provided 45 minutes of critical care time exclusive of time spent on separately billable procedures. Time includes review of laboratory data, radiology results, discussion with consultants, and monitoring for potential decompensation. Interventions were performed as documented.
--- NOTE | 2022-03-03 22:44 | NUR.NOTE ---
Pt will be ED hold overnight. 2nd IV site placed nursing drapery supervisor called for IV medication Nursing Note:
[2022-03-03] MEDS: REMDESIVIR 200 MG in Normal Saline 250 ML 250 MG IVPB (23:26)
[2022-03-03 23:54] LABS: Troponin I 83 ng/L (<or=60)
[2022-03-04] VITALS (53 sets, daily range): BP systolic 111–148; BP diastolic 47–94; PULSE 77–122; RESP 18–29; TEMP 36.6–38.7; O2SAT 90–96
--- NOTE | 2022-03-04 00:11 | NUR.NOTE ---
Pt resting. Tolerating IV infusion, Urinal at bedside. will continue to monitor Nursing Note:
--- NOTE | 2022-03-04 03:00 | NUR.NOTE ---
[facility] [place].Nursing Note:
--- NOTE | 2022-03-04 03:08 | NUR.NOTE ---
Pt resting comfortably, 2nd lactic drawn and sent Nursing Note:
[2022-03-04 03:15] LABS: Lactate 3.3 mmol/L (0.9-1.7)
--- NOTE | 2022-03-04 03:58 | NUR.NOTE ---
Floor report given Nursing Note:
[2022-03-04] MEDS: Normal Saline 500 ML IV (04:56)
[2022-03-04] MEDS: Normal Saline Flush 10 ML SYR IVP ×3 (04:57→22:03)
--- NOTE | 2022-03-04 06:21 | W.PM.HP.N ---
Date of service: 03/04/22 Time of Service: 06:21 Assessment and Plan Assessment and plan (1) Sepsis: Start date: 03/04/22 Status: Acute Assessment and plan: Patient presented appearing septic with markedly elevated WBC and fever as well as slight altered mental status as well as tachycardia. He did not appear tachypneic but was having a cough and was extremely weak. He was initiated on broad-spectrum IV antibiotic therapy with ED physician thinking the patient had patchy infiltrates with clinical exam consistent with this and suspicious of COVID-19 pneumonia but also possible bacterial pneumonia with elevated markers. Procalcitonin was elevated. Patient also had a possible UTI as a source of infection. He did improve with IV antibiotic therapy and because of elevated BNP had slow fluid resuscitation which was continued. His creatinine was increased from baseline he did have lactic acidosis. This appeared to be improving and would be followed with labs. Patient is a DNR/DNI. (2) Pneumonia due to COVID-19 virus: Start date: 03/04/22 Status: Acute Assessment and plan: Clinically the patient has pneumonia and by chest x-ray and ED interpretation this is patchy consistent with COVID-19 infection which is recurrent in this patient. He did have an active infection in rehabilitation earlier this fall with recovery and now has a new infection. He will be treated with remdesivir and dexamethasone because of his COPD exacerbation with wheezing though he is not hypoxic. He appears to be stabilizing. (3) Acute UTI: Start date: 03/04/22 Status: Acute Assessment and plan: Broad-spectrum IV antibiotic therapy should cover this problem with urine culture pending and pathogen and sensitivities to be followed up when converting to oral therapy. Patient did have a marked inflammatory response with elevated WBC and fever. (4) Acute exacerbation of chronic obstructive pulmonary disease (COPD): Start date: 03/04/22 Status: Acute Assessment and plan: Aggressive nebulizer treatments and follow-up on patient's outpatient medical therapy once med reconciliation can be accomplished. IV dexamethasone for COVID should help with this acute exacerbation. Patient does continue to smoke daily. (5) Elevated troponin: Status: Acute Assessment and plan: Patient did have a slight bump in his troponins and this is appearing to trend downward with follow-up lab this morning. Patient is a DNR/DNI and this appears to be secondary to cardiac strain and not a primary problem. His medication list needs to be reconciled with this a history of hypertension on treatment. He appears to be on a statin and beta-melissa can be added as blood pressure allows. (6) Continuous tobacco abuse: Status: Chronic Assessment and plan: Hold off on nicotine supplement with patient troponin slightly elevated and patient is not asking for nicotine at this time. Long-term patient should stop smoking. History of Present Illness History of Present Illness Chief Complaint: Extreme weakness not been able to stand, cough Narrative: This is an 82[facility] male [facility] who presented to the ED with 24 to 48 hours of fever, weakness not be able to get up and cough. He appeared septic with a markedly elevated WBC, tachycardia and slightly altered mental status which improved with IV antibiotic therapy for a presumed UTI. He also was thought to have a pneumonia by ED physicians reading though the formal reading said no acute process. He does have COPD and continues to smoke and has been wheezing. He was first considered for ICU level of care and the [place] as well as [facility] did not accept him and did not think that he was a candidate. 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 He was not requiring oxygen. He was initiated on remdesivir and then broad-spectrum IV antibiotics with Zosyn, vancomycin and doxycycline. He was not initiated on steroids though he was having some wheezing. As stated he was not requiring oxygen. He did have a slight bump in his troponins which peaked and then were trending down and he did also have an elevated BNP with his complete medication list not available at the time of admission. It is unsure whether he is on diuretics chronically and what his last echocardiogram revealed though he may have right-sided CHF. He did have diabetes at 1 time on his problem list and his sugars are slightly elevated but not remarkably so with patient stating he does not take anything for diabetes. I think his amputation was mostly secondary to vascular issues and continued risk for advancing disease being a smoker and deconditioned with obesity. The patient did not endorse any chest pain but was short of breath with a cough, he had no increased peripheral edema from baseline but slight edema over his right leg. He denies any GI symptoms or urinary symptoms though he did have a UTI by urinalysis. He is a DNR/DNI. Review of Systems Narrative: 13 point review of systems otherwise unrevealing or stable. PENDING SALE TO [facility] All Active Problems (Updated 03/04/22 @ 07:02 by Tyler Earl) Elevated troponin (Acute) Continuous tobacco abuse (Chronic) Sepsis (Acute) Acute UTI (Acute) Pneumonia due to COVID-19 virus (Acute) Bandemia (Acute) Orthostatic hypotension (Acute) B12 deficiency anemia (Acute) Anemia (Chronic) Osteomyelitis of left foot (Acute) DNR (do not resuscitate) (Acute) Health insurance with [facility] (Acute) Acute exacerbation of chronic obstructive pulmonary disease (COPD) (Acute) Pneumonia (Acute) Wernicke encephalopathy (Acute) Insomnia (Acute) Intention tremor (Chronic) COPD exacerbation (Acute) Hypertension (Chronic) Pain (Acute) Syncope (Acute) Fracture of rib of left side (Chronic) Laceration of right thumb (Acute) Thoracic vertebral fracture (Acute) Peripheral neuropathy (Chronic) Peripheral vertigo of both ears (Acute) Stenosis of right internal carotid artery (Acute) Dizziness (Acute) Chest pain (Acute) Alcohol abuse (Chronic) Community acquired pneumonia (Acute) COPD (chronic obstructive pulmonary disease) (Chronic) Hyponatremia (Chronic) Pancytopenia (Acute) Medical History Alcohol abuse GERD (gastroesophageal reflux disease) HTN (hypertension) Hx of hyperlipidemia Orthostatic hypotension Stenosis of both internal carotid arteries Vertigo Surgical History Fracture of right hip pinning Hx of cholecystectomy Social History Smoking/Tobacco Use Status: Current every day Tobacco Type: cigars Smoking risk assessment performed?: Yes Alcohol Intake: former Drug use: Never Substance use type: does not use Do you feel safe at home: Yes Do you feel safe in your relationship?: Yes Additional Social history: Lives in his own apartment, [address] [place] in [facility] Allergies and Home Medications Allergies Allergy/AdvReac Type Severity Reaction Status Date / Time No Known Allergies Allergy Verified 03/04/22 02:18 Home Medications Medication Instructions Recorded Confirmed Type amlodipine 10 mg tablet 10 mg PO DAILY 10/25/14 10/24/21 History omeprazole 20 mg capsule,delayed 40 mg PO DAILY 10/25/14 10/24/21 History release lisinopril 10 mg tablet 10 mg PO QPM #0 tabs 07/11/20 10/24/21 Rx potassium chloride 20 mEq 20 meq PO DAILY #30 tabs 07/11/20 10/24/21 Rx tablet,extended release tamsulosin 0.4 mg capsule 0.4 mg PO HS #0 caps 07/11/20 10/24/21 Rx furosemide 20 mg tablet 20 mg PO DAILY #0 tabs 07/17/21 10/24/21 Rx albuterol sulfate 90 mcg/actuation 2 puff inhalation Q6H PRN 07/30/21 10/24/21 History aerosol inhaler nitroglycerin 0.4 mg sublingual 0.4 mg sublingual Q5M PRN 07/30/21 10/24/21 History tablet (Nitrostat) alendronate 70 mg tablet 70 mg PO QWEEK 10/20/21 10/24/21 History aspirin 81 mg tablet,delayed 81 mg PO DAILY 10/20/21 10/24/21 History release atorvastatin 40 mg tablet 40 mg PO DAILY 10/20/21 10/24/21 History calcium carbonate 500 mg-vitamin 2 tab PO DAILY 10/20/21 10/24/21 History D3 5 mcg (200 unit) tablet (Calcium 500 + D) tiotropium bromide 2.5 2 puff inhalation DAILY 10/20/21 10/24/21 History mcg/actuation mist for inhalation trazodone 100 mg tablet 300 mg PO HS 10/20/21 10/24/21 History Exam Narrative Exam Narrative: General: Patient appears older than stated age, flattened affect with poor eye contact, slow speech with monotonous tone, alert and oriented least to person place, and moderate distress from his cough and weakness. HEENT: Normocephalic, eyes with pupils equal and react light symmetrically, extraocular movement tact and sclera anicteric. Oropharynx with dry mucosa. Neck: Supple without JVD. Back: Kyphotic without CVA tenderness. Lungs: Poor aeration with bronchovesicular breath sounds diffusely, scant inspiratory crackles over both lung staff[place] without focalizing, no rhonchi, increased expiratory phase with expiratory wheeze. Heart: Regular rate and rhythm with no appreciable murmur or gallop. Abdomen: Obese contour, soft and nontender to palpation with no palpable hepatosplenomegaly. Bowel sounds positive in all quadrants. Genitalia/rectal: Exam deferred. Extremities: Left BKA with dry stump, wrapped in Kapil bandage without swelling, right leg with trace to nonpitting edema, no cyanosis or clubbing. Joints have decreased range of motion but no swelling or increased warmth to touch. Skin: Pale, warm and slightly diaphoretic especially over back. Neuro: Cranial nerves II through XII gross intact, no focal motor deficits. Psych: Flattened affect with normal mood. No abnormal thought processes. Remote and recent memory appear to be grossly intact though patient is a vague historian. He does not know his medication list which is at the [place]. Results Imaging Imaging Studies: Exam: XR Chest Exam date and time: 03/03/2022 8:34 PM Age: 82 years old Clinical indication: Cough and shortness of breath TECHNIQUE: Imaging protocol: Radiologic exam of the chest. Views: 1 view. COMPARISON: CR XR PORTABLE CHEST AP 10/22/2021 12:17 PM FINDINGS: Lungs: Unremarkable. No consolidation. Pleural spaces: Bilateral calcified pleural plaques as previously demonstrated. No pleural effusion. No pneumothorax. Heart/Mediastinum: Unremarkable. No cardiomegaly. Bones/joints: Degenerative changes. IMPRESSION: No acute findings. Labs Result diagrams: 03/03/22 20:36 03/03/22 20:36 Labs: Laboratory Results - last 24 hr 03/03/22 03/03/22 03/03/22 20:36 20:36 20:36 WBC RBC Hgb Hct MCV MCH MCHC RDW Plt Count MPV Immature Gran % Neutrophils % Band Neutrophils % Lymphocytes % Monocytes % Eosinophils % Basophils % Metamyelocytes % Nucleated RBC % Absolute Neutrophils Absolute Lymphocytes Absolute Monocytes Absolute Eosinophils Absolute Basophils RBC Morphology VBG Lactate Sodium Potassium Chloride Carbon Dioxide Anion Gap BUN Creatinine Est GFR (CKD-EPI 2020) Glucose Calcium Total Bilirubin AST ALT Alkaline Phosphatase Troponin I 91 H* NT-Pro-B Natriuret Pep Total Protein Albumin Procalcitonin 41.7 Urine Color Urine Clarity Urine pH Ur Specific [place] Urine Protein Urine Ketones Urine Blood Urine Nitrite Urine Bilirubin Urine Urobilinogen Ur Leukocyte Esterase Urine RBC Urine WBC Ur Epithelial Cells Urine Crystals Urine Bacteria Urine Mucus Ur Culture Indicated? Urine Glucose COVID-19 Source Nasopharynx SARS-CoV-2 (PCR) Positive A Influenza Type A (PCR) Negative Influenza Type B (PCR) Negative RSV (PCR) Negative 03/03/22 03/03/22 03/03/22 20:36 20:36 20:36 WBC 39.99 H* RBC 4.17 L Hgb 11.3 L Hct 36.3 L MCV 87 MCH 27.1 MCHC 31.1 L RDW 16.0 H Plt Count 203 MPV 10.5 Immature Gran % 0.0 Neutrophils % 64.0 Band Neutrophils % 22 Lymphocytes % 2.0 Monocytes % 10.0 Eosinophils % 0.0 Basophils % 0.0 Metamyelocytes % 2 Nucleated RBC % 0.0 Absolute Neutrophils 34.39 H Absolute Lymphocytes 0.80 L Absolute Monocytes 4.00 H Absolute Eosinophils 0.00 Absolute Basophils 0.00 RBC Morphology Normal VBG Lactate 7.4 H* Sodium 136 Potassium 3.5 Chloride 100 Carbon Dioxide 22.6 Anion Gap 13.4 H BUN 20 H Creatinine 2.0 H Est GFR (CKD-EPI 2020) 33.12 Glucose 143 H Calcium 8.5 Total Bilirubin 0.6 AST 23 ALT 14 L Alkaline Phosphatase 113 Troponin I NT-Pro-B Natriuret Pep 9945 H Total Protein 6.8 Albumin 2.5 L Procalcitonin Urine Color Urine Clarity Urine pH Ur Specific [place] Urine Protein Urine Ketones Urine Blood Urine Nitrite Urine Bilirubin Urine Urobilinogen Ur Leukocyte Esterase Urine RBC Urine WBC Ur Epithelial Cells Urine Crystals Urine Bacteria Urine Mucus Ur Culture Indicated? Urine Glucose COVID-19 Source SARS-CoV-2 (PCR) Influenza Type A (PCR) Influenza Type B (PCR) RSV (PCR) 03/03/22 03/03/22 03/04/22 21:30 23:24 03:00 WBC RBC Hgb Hct MCV MCH MCHC RDW Plt Count MPV Immature Gran % Neutrophils % Band Neutrophils % Lymphocytes % Monocytes % Eosinophils % Basophils % Metamyelocytes % Nucleated RBC % Absolute Neutrophils Absolute Lymphocytes Absolute Monocytes Absolute Eosinophils Absolute Basophils RBC Morphology VBG Lactate 3.3 H* Sodium Potassium Chloride Carbon Dioxide Anion Gap BUN Creatinine Est GFR (CKD-EPI 2020) Glucose Calcium Total Bilirubin AST ALT Alkaline Phosphatase Troponin I 83 H* NT-Pro-B Natriuret Pep Total Protein Albumin Procalcitonin Urine Color Yellow Urine Clarity Cloudy Urine pH 6.0 Ur Specific [place] >= 1.030 H Urine Protein 100 H Urine Ketones Trace H Urine Blood Moderate H Urine Nitrite Negative Urine Bilirubin Negative Urine Urobilinogen 1.0 H Ur Leukocyte Esterase Moderate H Urine RBC Not Applicable Urine WBC >50 H Ur Epithelial Cells Not Applicable Urine Crystals Not Applicable Urine Bacteria Not Applicable Urine Mucus Not Applicable Ur Culture Indicated? Yes Urine Glucose Negative COVID-19 Source SARS-CoV-2 (PCR) Influenza Type A (PCR) Influenza Type B (PCR) RSV (PCR) Last Vital Signs Temp 37.6 C H 03/04/22 04:23 Pulse 95 H 03/04/22 04:23 Resp 18 03/04/22 04:23 BP 144/70 H 03/04/22 04:23 Pulse Ox 96 03/04/22 04:23
[2022-03-04] MEDS: Acetaminophen 325 MG TAB PO (07:35)
--- NOTE | 2022-03-04 08:15 | RT.EKG_ITS ---
APPROVED REPORT Exam: Resting ECG Reason for Exam: [facility] Patient Location: I HR:94 bpm ECG Measurements Heart Rate 94 AXIS HI 151 P 55 QRSd 94 QRS 49 QT 370 T 21 QTc 463 Conclusion Sinus rhythm...normal P axis, V-rate 50- 99 Atrial premature complex...SV complex w/ short R-R interval Borderline low voltage, extremity leads...all extremity leads <0.6mV Baseline wander in lead(s) V1
[2022-03-04] MEDS: Dexamethasone 10 MG/ML VIAL IVP (08:41)
[2022-03-04] MEDS: PIPERACILLIN/TAZO 4.5 GM in Normal Saline 100 ML IVPB ×2 (08:43→16:16)
[2022-03-04 09:07] LABS: HCT 31.4 % (40.0-50.0); HGB 10.2 g/dL (13.5-17.5); MCH 27.9 pg (27.0-33.0); MCHC 32.5 % (32.0-36.0); MCV 86 fL (80-95); RBC 3.65 10^6/uL (4.36-5.78); RDW 16.1 % (11.8-14.1); RDW-SD 51.3 fL
--- NOTE | 2022-03-04 09:15 | PGE_ITS ---
Date of Service Date of service: 03/04/22 Time of Service: 09:15 Assessment and Plan Assessment and plan (1) Sepsis: Start date: 03/04/22 Status: Acute Assessment and plan: Slight AMS - fever, tachycardia, weakness and a cough - broad-spectrum IV antibiotic therapy started Doxy, Vancomycin and Zosyn started (2) Pneumonia due to COVID-19 virus: Start date: 03/04/22 Status: Acute Assessment and plan: Clinically the patient has pneumonia and by chest x-ray and ED interpretation this is patchy consistent with COVID-19 infection which is recurrent in this patient. Remdesivir and dexamethasone because of his COPD exacerbation with wheezing though he is not hypoxic. (3) Acute UTI: Start date: 03/04/22 Status: Acute Assessment and plan: Broad-spectrum IV antibiotic therapy should cover this problem with urine culture pending and pathogen and sensitivities to be followed up when converting to oral therapy. Patient did have a marked inflammatory response with elevated WBC and fever. Procalcitonin elevated (4) Acute exacerbation of chronic obstructive pulmonary disease (COPD): Start date: 03/04/22 Status: Acute Assessment and plan: Aggressive nebulizer treatments IV dexamethasone for COVID should help with this acute exacerbation. Patient does continue to smoke daily - smoking cessation; patch (5) Elevated troponin: Status: Acute Assessment and plan: Patient did have a slight bump in his troponins and this is appearing to trend downward with follow-up lab this morning. Patient is a DNR/DNI and this appears to be secondary to cardiac strain and not a primary problem. He appears is on a statin and beta-melissa (6) Continuous tobacco abuse: Status: Chronic Assessment and plan: Hold off on nicotine supplement with patient troponin slightly elevated and patient is not asking for nicotine at this time. Long-term patient should stop smoking. Subjective Subjective Patient reports: no new complaints, feels better, tolerating a regular diet, vo iding w/o difficulty and no bowel movement Exam Const General: cooperative, comfortable and no acute distress Nutritional Appearance: average body habitus Orientation: alert, awake and oriented x3 HENMT Head: normal to inspection, normocephalic and atraumatic Mouth: oral mucosae normal Eyes General: appearance normal, both eyes and all related structures Resp Effort & Inspection: normal respiratory effort Cardio Rate: regular rate Rhythm: regular rhythm GI Inspection: normal to inspection Palpation: soft Auscultation: normal bowel sounds Skin Lesions: lesion noted (dressing intact) Extrem General: full ROM Psych Mental Status: mental status grossly normal Speech and Movement: speech and movement normal Mood: congruent mood Affect: normal affect Objective Last Vital Signs Temp 38.7 C H 03/04/22 07:35 Pulse 103 H 03/04/22 07:21 Resp 20 03/04/22 07:21 BP 144/70 H 03/04/22 07:21 Pulse Ox 93 03/04/22 07:21 Laboratory Results - last 24 hr 03/03/22 03/03/22 03/03/22 20:36 20:36 20:36 WBC RBC Hgb Hct MCV MCH MCHC RDW Plt Count MPV Immature Gran % Neutrophils % Band Neutrophils % Lymphocytes % Monocytes % Eosinophils % Basophils % Metamyelocytes % Nucleated RBC % Absolute Neutrophils Absolute Lymphocytes Absolute Monocytes Absolute Eosinophils Absolute Basophils RBC Morphology VBG Lactate Sodium Potassium Chloride Carbon Dioxide Anion Gap BUN Creatinine Est GFR (CKD-EPI 2020) Glucose Calcium Total Bilirubin AST ALT Alkaline Phosphatase Troponin I 91 H* NT-Pro-B Natriuret Pep Total Protein Albumin Procalcitonin 41.7 Urine Color Urine Clarity Urine pH Ur Specific [place] Urine Protein Urine Ketones Urine Blood Urine Nitrite Urine Bilirubin Urine Urobilinogen Ur Leukocyte Esterase Urine RBC Urine WBC Ur Epithelial Cells Urine Crystals Urine Bacteria Urine Mucus Ur Culture Indicated? Urine Glucose COVID-19 Source Nasopharynx SARS-CoV-2 (PCR) Positive A Influenza Type A (PCR) Negative Influenza Type B (PCR) Negative RSV (PCR) Negative 03/03/22 03/03/22 03/03/22 20:36 20:36 20:36 WBC 39.99 H* RBC 4.17 L Hgb 11.3 L Hct 36.3 L MCV 87 MCH 27.1 MCHC 31.1 L RDW 16.0 H Plt Count 203 MPV 10.5 Immature Gran % 0.0 Neutrophils % 64.0 Band Neutrophils % 22 Lymphocytes % 2.0 Monocytes % 10.0 Eosinophils % 0.0 Basophils % 0.0 Metamyelocytes % 2 Nucleated RBC % 0.0 Absolute Neutrophils 34.39 H Absolute Lymphocytes 0.80 L Absolute Monocytes 4.00 H Absolute Eosinophils 0.00 Absolute Basophils 0.00 RBC Morphology Normal VBG Lactate 7.4 H* Sodium 136 Potassium 3.5 Chloride 100 Carbon Dioxide 22.6 Anion Gap 13.4 H BUN 20 H Creatinine 2.0 H Est GFR (CKD-EPI 2020) 33.12 Glucose 143 H Calcium 8.5 Total Bilirubin 0.6 AST 23 ALT 14 L Alkaline Phosphatase 113 Troponin I NT-Pro-B Natriuret Pep 9945 H Total Protein 6.8 Albumin 2.5 L Procalcitonin Urine Color Urine Clarity Urine pH Ur Specific [place] Urine Protein Urine Ketones Urine Blood Urine Nitrite Urine Bilirubin Urine Urobilinogen Ur Leukocyte Esterase Urine RBC Urine WBC Ur Epithelial Cells Urine Crystals Urine Bacteria Urine Mucus Ur Culture Indicated? Urine Glucose COVID-19 Source SARS-CoV-2 (PCR) Influenza Type A (PCR) Influenza Type B (PCR) RSV (PCR) 03/03/22 03/03/22 03/04/22 21:30 23:24 03:00 WBC RBC Hgb Hct MCV MCH MCHC RDW Plt Count MPV Immature Gran % Neutrophils % Band Neutrophils % Lymphocytes % Monocytes % Eosinophils % Basophils % Metamyelocytes % Nucleated RBC % Absolute Neutrophils Absolute Lymphocytes Absolute Monocytes Absolute Eosinophils Absolute Basophils RBC Morphology VBG Lactate 3.3 H* Sodium Potassium Chloride Carbon Dioxide Anion Gap BUN Creatinine Est GFR (CKD-EPI 2020) Glucose Calcium Total Bilirubin AST ALT Alkaline Phosphatase Troponin I 83 H* NT-Pro-B Natriuret Pep Total Protein Albumin Procalcitonin Urine Color Yellow Urine Clarity Cloudy Urine pH 6.0 Ur Specific [place] >= 1.030 H Urine Protein 100 H Urine Ketones Trace H Urine Blood Moderate H Urine Nitrite Negative Urine Bilirubin Negative Urine Urobilinogen 1.0 H Ur Leukocyte Esterase Moderate H Urine RBC Not Applicable Urine WBC >50 H Ur Epithelial Cells Not Applicable Urine Crystals Not Applicable Urine Bacteria Not Applicable Urine Mucus Not Applicable Ur Culture Indicated? Yes Urine Glucose Negative COVID-19 Source SARS-CoV-2 (PCR) Influenza Type A (PCR) Influenza Type B (PCR) RSV (PCR) 03/04/22 08:16 WBC RBC Hgb Hct MCV MCH MCHC RDW Plt Count MPV Immature Gran % Neutrophils % Band Neutrophils % Lymphocytes % Monocytes % Eosinophils % Basophils % Metamyelocytes % Nucleated RBC % Absolute Neutrophils Absolute Lymphocytes Absolute Monocytes Absolute Eosinophils Absolute Basophils RBC Morphology VBG Lactate Sodium Cancelled Potassium Cancelled Chloride Cancelled Carbon Dioxide Cancelled Anion Gap Cancelled BUN Cancelled Creatinine Cancelled Est GFR (CKD-EPI 2020) Cancelled Glucose Cancelled Calcium Cancelled Total Bilirubin AST ALT Alkaline Phosphatase Troponin I NT-Pro-B Natriuret Pep Total Protein Albumin Procalcitonin Urine Color Urine Clarity Urine pH Ur Specific [place] Urine Protein Urine Ketones Urine Blood Urine Nitrite Urine Bilirubin Urine Urobilinogen Ur Leukocyte Esterase Urine RBC Urine WBC Ur Epithelial Cells Urine Crystals Urine Bacteria Urine Mucus Ur Culture Indicated? Urine Glucose COVID-19 Source SARS-CoV-2 (PCR) Influenza Type A (PCR) Influenza Type B (PCR) RSV (PCR) Reviewed Pertinent PMH: Yes
[2022-03-04 09:23] LABS: ALT 12 U/L (16-63); AST 22 U/L (15-37); Albumin 2.1 g/dL (3.4-5.0); Alkaline Phosphatase 85 U/L (46-116); Anion Gap 9.6 mmol/L (3-11); BUN 31 mg/dL (7-18); Bilirubin, Total 0.6 mg/dL (0.2-1.0); CO2 23.4 mmol/L (21.0-32.0); CREATININE 1.7 mg/dL (0.70-1.30); Calcium 7.7 mg/dL (8.5-10.1); Chloride 102 mmol/L (98-107); Creatine Kinase 186 U/L (39-308); Estimated GFR 40.25 (mL/min/1.73m2); Glucose 129 mg/dL (74-106); LDH 156 U/L (85-227); Magnesium 1.6 mg/dL (1.8-2.4); Potassium 3.9 mmol/L (3.5-5.1); Sodium 135 mmol/L (136-145); Total Protein 6.1 g/dL (6.4-8.2)
[2022-03-04 09:25] LABS: Absolute Lymphocyte Count 0.81 10^3/uL (1.2-3.4); Absolute Monocyte Count 1.35 10^3/uL (0.1-0.8); Absolute Neutrophil Count 24.84 10^3/uL (1.2-6.7); Bands % 6; Diff Comment Manual Differential; RBC Morphology Normal
[2022-03-04 09:27] LABS: Troponin I 55 ng/L (<or=60)
--- NOTE | 2022-03-04 09:51 | PDOC.CMIN ---
- If Service Date Differs Date of service: 03/04/22 Time of Service: 09:51 Care Management Initial Assess REASON FOR HOSPITALIZATION:: Sepsis, UTI, Pneumonia due to COVID-19 virus, acute COPD Exacerbation PAST MEDICAL HISTORY/PAST SURGICAL HISTORY:: All Active Problems (Updated 03/04/22 @ 07:02 by Tyler Earl). Elevated troponin (Acute). Continuous tobacco abuse (Chronic). Sepsis (Acute). Acute UTI (Acute). Pneumonia due to COVID-19 virus (Acute). Bandemia (Acute). Orthostatic hypotension (Acute). B12 deficiency anemia (Acute). Anemia (Chronic). Osteomyelitis of left foot (Acute). DNR (do not resuscitate) (Acute). Health insurance with Department of [employer] (Acute). Acute exacerbation of chronic obstructive pulmonary disease (COPD) (Acute). Pneumonia (Acute). Wernicke encephalopathy (Acute). Insomnia (Acute). Intention tremor (Chronic). COPD exacerbation (Acute). Hypertension (Chronic). Pain (Acute). Syncope (Acute). Fracture of rib of left side (Chronic). Laceration of right thumb (Acute). Thoracic vertebral fracture (Acute). Peripheral neuropathy (Chronic). Peripheral vertigo of both ears (Acute). Stenosis of right internal carotid artery (Acute). Dizziness (Acute). Chest pain (Acute). Alcohol abuse (Chronic). Community acquired pneumonia (Acute). COPD (chronic obstructive pulmonary disease) (Chronic). Hyponatremia (Chronic). Pancytopenia (Acute). Medical History . Alcohol abuse. GERD (gastroesophageal reflux disease). HTN (hypertension). Hx of hyperlipidemia. Orthostatic hypotension. Stenosis of both internal carotid arteries. Vertigo. Surgical History . Fracture of right hip. pinning. Hx of cholecystectomy PREVIOUS FUNCTIONAL STATUS/SOCIAL/FAMILY SUPPORTS:: Tyler lives alone [address] [facility] [address] in [place]. Tyler is retired but worked 50 years in the [employer]. He has lots of friends who are supportive of him but does not have any family locally. Tyler is independent with his ADLs at baseline. CURRENT FUNCTIONAL STATUS:: Tyler is on covid precautions, CM assessed pt via phone. Tyler is awake, alert and easily engages in conversation. He shares that he was discharged from a SNF in [place] on 02/12/22. ADVANCE DIRECTIVES:: None on file; patient declines Advance Directives. Has patient been provided with info about the portal/API?: Yes Did the patient sign up for the portal?: No CODE STATUS:: DNR/DNI INSURANCE COVERAGE / FINANCIAL ISSUES:: Medicare A&B. Veterans Choice CURRENT HOME/COMMUNITY SERVICES/EQUIPMENT:: [facility] SN/PT/OT. Wheelchair. [place] [facility] PRIMARY CARE PHYSICIAN:: Dr. Brad Morrow ([place]) POTENTIAL DISCHARGE NEEDS:: Close outpatient follow up, resumption of [facility] services and discharge plan of care. He will need an outpatient prosthetic consult through [email or web address]. PATIENT/FAMILY EDUCATION NEEDS:: Review discharge instructions, limitations, medications and plan to follow up with community providers. Discuss Ask Me Three and goals of self care. TRANSPORTATION:: Likely, [facility] W/C van if discharging home. PLAN:: Tyler defers PT discharge recommendation of SNF for STR. He insists on discharging home with Resumption of [facility] RN/PT/OT, when he is medically ready. He will transport via [facility] W/C van and follow up with community providers. He will need to reschedule his outpatient prosthetic consult through [email or web address].
[2022-03-04 09:56] LABS: Ferritin 143 ng/mL (26-388)
[2022-03-04 09:57] LABS: D-Dimer > 7500 ng/mlFEU (<500)
[2022-03-04] MEDS: MAGNESIUM SULFATE 4 GM/100 ML BAG IVPB (10:09)
[2022-03-04] MEDS: DOXYCYCLINE 100 MG in Normal Saline 100 ML IVPB ×2 (10:09→22:22)
[2022-03-04 12:07] LABS: Troponin I 52 ng/L (<or=60)
--- NOTE | 2022-03-04 13:11 | IN_ITS ---
Date of service: 03/04/22 Time of Service: 13:11 PT Notes Visit Reasons: Sepsis Syndrome/UTI, COVID-19 infection, COPD exac Inpatient Physical Therapy Evaluation Date:?03/04/2022 Referring Doctor:? Tyler Earl MD PT Orders: PT CONSULT: Limited ability Precautions: COVID-19 infection. Fall. L BKA postop month 3. Patient Profile/Admitting Diagnosis:? Patient is an 82-year-old male patient who presented to the ED on 03/03/2022 due to cough, shortness of breath, and R leg swelling. Patient is diagnosed with sepsis, COVID-19 infection, PNA, acute UTI, COPD axacerbation, elevated troponin, continuous tobacco abue. PMHX: PFSH All Active Problems?(Updated 03/04/22 @ 07:02 by Tyler Earl) Elevated troponin (Acute) Continuous tobacco abuse (Chronic) Sepsis (Acute) Acute UTI (Acute) Pneumonia due to COVID-19 virus (Acute) Bandemia (Acute) Orthostatic hypotension (Acute) B12 deficiency anemia (Acute) Anemia (Chronic) Osteomyelitis of left foot (Acute) DNR (do not resuscitate) (Acute) Health insurance with [employer] of [employer] (Acute) Acute exacerbation of chronic obstructive pulmonary disease (COPD) (Acute) Pneumonia (Acute) Wernicke encephalopathy (Acute) Insomnia (Acute) Intention tremor (Chronic) COPD exacerbation (Acute) Hypertension (Chronic) Pain (Acute) Syncope (Acute) Fracture of rib of left side (Chronic) Laceration of right thumb (Acute) Thoracic vertebral fracture (Acute) Peripheral neuropathy (Chronic) Peripheral vertigo of both ears (Acute) Stenosis of right internal carotid artery (Acute) Dizziness (Acute) Chest pain (Acute) Alcohol abuse (Chronic) Community acquired pneumonia (Acute) COPD (chronic obstructive pulmonary disease) (Chronic) Hyponatremia (Chronic) Pancytopenia (Acute) Medical History? Alcohol abuse GERD (gastroesophageal reflux disease) HTN (hypertension) Hx of hyperlipidemia Orthostatic hypotension Stenosis of both internal carotid arteries Vertigo Surgical History? Fracture of right hip pinning Hx of cholecystectomy Vertigo Social History/Home Situation: Lives alone on the second floor of an apartment building in [place] with a ramp and an elevator to enter.? Patient is modified independent using motorized wheelchair for all transfers and indoor/outdoor mobility. He has a lady who comes in once or twice a week to perform house chores and laundry. Equipment Owned/DME: Motorized wheelchair, 4WW Subjective:? Tyler is agreeable to PT consult.? Report? no significant pain.? States that his R foot teds to swell when he pust weight on it. Okay with getting out of bed onto wheelchair for mobility assessment. He was supposed to have an appointment with the terrazzo polisher in [place] today. Objective:? General Observation:? ? L transtibial amputation residual limb intact. Telemetry monitoring in place.?? IV left dorsum hand.?Mild swelling in L leg and foot. Mental Status: Alert and oriented x3 Pain: 0/10 pain Vital Signs:?WNL as closely [id number] by nursing staff. ROM: Right Upper Extremity: ? Shoulder Flexion WFL. Shoulder abduction WFL. Elbow flexion WFL. Wrist flexion WFL. Functional opening and closing of hand WFL. Left Upper Extremity:? Shoulder Flexion WFL. Shoulder abduction WFL. Elbow flexion WFL. Wrist flexion WFL. Functional opening and closing of hand WFL.? Pain at end range of L shoulder ROM. Right Lower Extremity: Hip flexion WFL. Hip abduction WFL. Knee flexion WFL. Ankle dorsiflexion WFL. Ankle plantarflexion WFL. Left Lower Extremity: Hip flexion WFL. Hip abduction WFL. Knee flexion 10 degrees to 90 degrees. Knee extensors -10 to 90 degrees. Ankle dorsiflexion WFL. Ankle plantarflexion WFL. Strength: Right Upper Extremity: Shoulder flexors 4/5. Shoulder abductors 4-/5. Elbow flexors 4/5. Elbow extensors 4/5. Bicycle Designer strong. Left Upper Extremity: Shoulder flexors 4/5. Shoulder abductors 4-/5. Elbow flexors 4/5. Elbow extensors 4/5. Bicycle Designer strong. Right Lower Extremity: Hip flexors 4-/5. Hip abductors 4-/5. Knee flexors 4-/5. Knee extensors 4-/5. Ankle dorsiflexors 4-/5. Ankle plantarflexors 4-/5. Left Lower Extremity: Hip flexors 4-/5. Hip abductors 4-/5. Knee flexors 3-/5. Knee extensors 3-5. Ankle dorsiflexors N/A. Ankle plantarflexors N/A. Sensation:? Diminished sensation bilateral lower extremities secondary to peripheral neuro kayla.? Bed Mobility/Transfers:?? Supine to sit: stand by assist with HOB at 30 degrees Sit to squat: stand by assist holding onto bed rail Bed to wheelchair: set up assist with wheelchair placed close to good R LE ? Gait:? N/A Balance:? Static Sitting: Normal Dynamic Sitting: Good Static Standing: Unable Dynamic Standing: Unable Special Tests: Mobility Limitations Standardized Measure [facility] AM-PAC 6 clicks Basic Mobility Inpatient Short Form: Raw Score: 15 ? ? ? Standardized Score: 58% deficit? Informed Consent/Education:? Patient instructed in purpose of PT consult and plan of care. Assessment:?? L BKA intact incision well aproxiated and healing. Patient requires stand by assist after set up of regular wheelchair for transfers. Has been non- ambulatory since 2-3 months agoa after L BKA. Patient presents with clinical signs and symptoms consistent with current/admitting diagnoses sepsis and osteomyelitis left foot that have resulted to mobility limitations, gait instability, generalized weakness, and overall ADL decline as demonstrated by the following impairment level findings: 1.? Decreased strength to B LE major muscle groups 2.? Impaired standing balance 3.? Impaired activity tolerance 4.? Swelling in Rleg Impairments are contributing to the following functional limitations: 1.? Decline in transfer skills 2.? Inability to ambulate due to R leg sweeling and L BKA 3.? Increased completion time for mobility ADL performance 4.? Increased risk for falls 5.? Increased risk for further skin breakdown/infection Patient is assessed as a 06932 moderate complexity based on the following: History: 82-year-old male with past medical history as indicated above Examination: Demonstrable impairment in strength, balance, and mobility level with underlying impairments and functional limitations as exhibited above as well as deficit score of 58% utilizing the [facility] Mobility Inpatient Short Form Presentation: Evolving Decision Makin moderate complexity Goals: Goals X1 week 1. Supine-Sit independent 2. Sit-Supine independent 3. Sit-Stand independent 4. Stand-Sit independent 5. Bed-Chair independent with sit-squat tranfer after set up 6. Chair-Bed supervision with sit-squat tranfer after set up Plan of Care/Treatment Plan: 1-2x/day, 7 days/week x 1 week. Plan of care has been reviewed with the CAREER DEVELOPMENT COORDINATOR/TEACHER providing the service under Physical Therapy direction. Initiate Physical Therapy intervention for strengthening, bed mobility, transfers, gait, stairs, balance training, use of assistive device. DISCHARGE RECOMMENDATIONS:?? [X]? Home with services HHPT Patient will benefit from home health PT services in order to progress mobility level using least restrictive assistive ambulatory device, assess home safety, identify additional equipment needs, and establish a functional maintenance program that will increase ability of patient to remain at home. ? TREATMENT CODE/TIME: 47061 x 20 minutes,? 83772 x 26 minutes beginning at 13:11 PM. Thank you for the opportunity to participate in the care of this patient. Cat Salmeron PT, DPT, CLT [facility] [place], [place]
[2022-03-04] MEDS: Insulin Aspart 300 UNITS/3 ML PEN SC (16:26)
--- NOTE | 2022-03-04 17:04 | TELEP.MEDR_ITS ---
Date of service: 03/04/22 [facility] All[facility] Allergies: No Known Allergies Allergy (Verified 03/04/22 02:18) Interview Person Interviewed: [facility] from 01/2022 Quality Quality of Interview/Accuracy of Medication List: Fair Sources Sources used to compile medication list: [employer] Medication List, MAR and SureScripts (MAR from [facility] from 01/2022) Changes made to Home Medication List: ADDITIONS: none DELETIONS: none CHANGES: the following medications did not appear on the [facility] MAR from 01/2022 it is possible they are current medications Nitroglycerine, lisinopril. titotropiium, calcium with vitamin dD Additional Notes Additional Notes: the patient does not know his medications, the family and friends contacted did not know his medications , he ws most recently at the [facility] for rehab and then had home cre nurse for wound care and they were able to send last months MAR no more current information available the [facility] information [facility] prior to the [facility] information. Recommended Changes Recommended Changes(reason for recommendation): none Attestation: The home medication list is now updated to the best of my knowledge and is ready to be reconciled by the provider. Please contact the [facility] Medication Reconciliation Pharmacist at for any questions.
--- NOTE | 2022-03-04 17:04 | TELEP.MEDREC ---
Date of service: 03/04/22 Time of Service: 17:04 [facility] Allergies Allergies: No Known Allergies Allergy (Verified 03/04/22 02:18) Interview Person Interviewed: [facility] from 01/2022 Quality Quality of Interview/Accuracy of Medication List: Fair Sources Sources used to compile medication list: [employer] Medication List, MAR and SureScripts (MAR from [facility] from 01/2022) Changes made to Home Medication List: ADDITIONS: none DELETIONS: none CHANGES: the following medications did not appear on the [facility] MAR from 01/2022 it is possible they are current medications Nitroglycerine, lisinopril. titotropiium, calcium with vitamin dD Additional Notes Additional Notes: the patient does not know his medications, the family and friends contacted did not know his medications , he ws most recently at the [facility] for [facility] and then had home cre nurse for wound care and they were able to send last months MAR no more current information available the [facility] information was prior to the [facility] information. Recommended Changes Recommended Changes(reason for recommendation): none Attestation: The home medication list is now updated to the best of my knowledge and is ready to be reconciled by the provider. Please [facility] the [facility] Medication [facility]con[facility] Pharmacist at for any questions.
[2022-03-04] MEDS: VANCOMYCIN/WATER (PEG) 1.25 GM/250 ML BAG IV (20:39)
[2022-03-04] MEDS: REMDESIVIR 100 MG in Normal Saline 250 ML 250 MG IVPB (22:00)
[2022-03-05] VITALS (11 sets, daily range): BP systolic 115–132; BP diastolic 67–75; PULSE 65–87; RESP 4–22; TEMP 36.2–37.1; O2SAT 91–94
--- NOTE | 2022-03-05 | DI.US_ITS ---
Exam(s) US RENAL EXAM: US RENAL CLINICAL HISTORY: UTI / sepsis. TECHNIQUE: Morales scale, color and spectral Doppler were used. COMPARISON: CT CT CHEST/ABD/PEL W from 07/07/2021 FINDINGS: Examination limited by patient body habitus and limited mobility. Renal size in cm: Right: 14.6. Left: 11.8. Echogenicity: Normal. Hydronephrosis: No. Cyst or mass: There are bilateral renal cysts. The largest on the right measures 3.2 x 2.3 x 2.3 cm. The largest on the left measures 4.2 x 3.4 x 3.2 cm. These are stable compared to the CT scan from 07/07/2021. No follow-up is recommended. Nephrolithiasis: No stones are seen sonographically. The CT scan from 07/07/2021 does show bilateral nephrolithiasis. Other findings: None. Bladder:The urinary bladder is incompletely distended with a volume of only 26 cc. The bladder wall does appear thickened at almost 1 cm. This does correlate with the findings on the CT scan however w hich showed thickened urinary bladder wall. Ureteral jets: Right: Not visualized on this examination. Left: Not visualized on this examination. Prevoid vol:26 cc Postvoid vol:Unable to void during the examination. Cc Prostate: 57 cc Renal color flow: Symmetric and within normal limits. IMPRESSION: 1. Examination limited by patient body habitus and mobility. 2. Bilateral renal cysts. No follow-up is recommended. 3. No evidence of hydronephrosis. 4. Inadequate filling of the urinary bladder. There was thickening of the urinary bladder wall. Thi s may be due to incomplete distension but cystitis, neurogenic bladder or chronic bladder outlet obst ruction should be considered. 5. Prostatomegaly. DATA REPOSITORY:
[2022-03-05] MEDS: PIPERACILLIN/TAZO 4.5 GM in Normal Saline 100 ML IVPB ×3 (00:16→18:03)
[2022-03-05] MEDS: Melatonin 3 MG TAB 9 MG PO (00:16)
[2022-03-05 06:48] LABS: HCT 31.3 % (40.0-50.0); HGB 10.2 g/dL (13.5-17.5); MCH 27.6 pg (27.0-33.0); MCHC 32.6 % (32.0-36.0); MCV 85 fL (80-95); MPV 11.6 fL (8.0-11.0); Platelet Count 107 10^3/uL (130-400); RBC 3.69 10^6/uL (4.36-5.78); RDW 16.4 % (11.8-14.1); RDW-SD 51.4 fL; WBC 19.94 10^3/uL (4.4-10.8)
[2022-03-05 07:06] LABS: ALT 11 U/L (16-63); AST 16 U/L (15-37); Albumin 2.1 g/dL (3.4-5.0); Alkaline Phosphatase 76 U/L (46-116); Anion Gap 7.6 mmol/L (3-11); BUN 35 mg/dL (7-18); Bilirubin, Total 0.4 mg/dL (0.2-1.0); CO2 24.4 mmol/L (21.0-32.0); CREATININE 1.2 mg/dL (0.70-1.30); Calcium 7.8 mg/dL (8.5-10.1); Chloride 100 mmol/L (98-107); Estimated GFR 61.13 (mL/min/1.73m2); Glucose 142 mg/dL (74-106); Magnesium 2.7 mg/dL (1.8-2.4); Potassium 3.6 mmol/L (3.5-5.1); Sodium 132 mmol/L (136-145); Total Protein 6.4 g/dL (6.4-8.2)
[2022-03-05] MEDS: Dexamethasone 10 MG/ML VIAL IVP (08:06)
[2022-03-05] MEDS: Insulin Aspart 300 UNITS/3 ML PEN SC ×3 (08:07→16:57)
[2022-03-05] MEDS: Enoxaparin 40 MG/0.4 ML SYR SC (08:07)
[2022-03-05] MEDS: Normal Saline Flush 10 ML SYR IVP ×3 (08:09→20:26)
--- NOTE | 2022-03-05 08:23 | OT.INIE ---
Occupational Therapy Notes Inpatient Occupational Therapy Evaluation Date: 03/05/22 Referring Doctor:Dr. Earl OT Orders: Non urgent Precautions: Fall, Standard, DNR/DNI PATIENT PROFILE/ADMITTING DIAGNOSIS: Pt is a 82 year old male admitted to Med Surg from the ED with diagnosis of cough, shortness of breath, and R leg swelling.? Patient is diagnosed with sepsis,? COVID-19 infection,? PNA,? acute UTI,? COPD axacerbation,? elevated troponin,?continuous tobacco abuse. Past Medical History: All Active Problems?(Updated 03/04/22 @ 07:02 by Tyler Earl) Elevated troponin (Acute) Continuous tobacco abuse (Chronic) Sepsis (Acute) Acute UTI (Acute) Pneumonia due to COVID-19 virus (Acute) Bandemia (Acute) Orthostatic hypotension (Acute) B12 deficiency anemia (Acute) Anemia (Chronic) Osteomyelitis of left foot (Acute) DNR (do not resuscitate) (Acute) Health insurance with Department [employer] (Acute) Acute exacerbation of chronic obstructive pulmonary disease (COPD) (Acute) Pneumonia (Acute) Wernicke encephalopathy (Acute) Insomnia (Acute) Intention tremor (Chronic) COPD exacerbation (Acute) Hypertension (Chronic) Pain (Acute) Syncope (Acute) Fracture of rib of left side (Chronic) Laceration of right thumb (Acute) Thoracic vertebral fracture (Acute) Peripheral neuropathy (Chronic) Peripheral vertigo of both ears (Acute) Stenosis of right internal carotid artery (Acute) Dizziness (Acute) Chest pain (Acute) Alcohol abuse (Chronic) Community acquired pneumonia (Acute) COPD (chronic obstructive pulmonary disease) (Chronic) Hyponatremia (Chronic) Pancytopenia (Acute) Medical History? Alcohol abuse GERD (gastroesophageal reflux disease) HTN (hypertension) Hx of hyperlipidemia Orthostatic hypotension Stenosis of both internal carotid arteries Vertigo Surgical History? Fracture of right hip pinningHx of cholecystectomy Social History/Home Situation: Pt states that he lives in a private home with walk in shower. He had HH services prior who (A) with adaptive equipment needed he is still waiting on a shower bench. He notes that he is (I) with his ADL/IADL routines. He does not drive but is able to get to and from his medical appointments either via [facility] or private transport. He states that he utilizes a wheelchair for his functional mobility and transfers at home to and from this. Equipment owned/DME: Wheelchair, shower seat is coming per pt report, SUBJECTIVE: Pt was sitting in bed he was agreeable to OT consult but states that he is not going to perform his dressing or bathing at this time. OBJECTIVE: General Observation: Pleasant, 2-IVs in dorsal (R) hand Mental Status: A&Ox3 Pain: no c/o pain ROM: RUE AROM WFL L UE AROM WFL STRENGTH: RUE 5/5 throughout LUE 5/5 throughout FUNCTIONAL MOBILITY/ADLS: BATHING/DRESSING sitting in bed pt denies performance of his dressing and bathing routines noting that he can perform this (I). TOILETING NT EATING sitting in bed (I) BALANCE: Static sitting Normal Dynamic Sitting Normal SPECIAL TESTS: Daily Activity Limitations Standardized Measure [facility] AM -PAC ?6 clicks? Daily Activity Inpatient Short Form: Raw score: 20 Standardized score: 42.03 CMS score: 38.32% INFORMED CONSENT/EDUCATION: Pt instructed in purpose of OT Consult and plan of care. ASSESSMENT: Patient is a 82-year-old male referred to occupational therapy services with diagnosis of cough, shortness of breath, and R leg swelling.? Patient is diagnosed with sepsis,? COVID-19 infection,? PNA,? acute UTI,? COPD axacerbation,? elevated troponin,? continuous tobacco abuse. Patient presents with clinical signs and symptoms consistent with dx, as demonstrated by the following impairment level findings/ functional limitations: Impairments in ADLs/IADL and leisure activities, decreased functional activity tolerance, decreased functional mobility. Patient is assessed as a Low 33587 complexity based on the following: History: see above Examination: see functional limitations as noted above Presentation: evolving Decision Making: Low complexity GOALS Goals x1 week 1. Grooming (I) oral hygiene 2. Dressing sitting in bed (I) don and doffing hospital gown, (I) donning sock 3. Bathing sitting in bed (I) 4. Toileting on commode (I) 5. Eating (I) PLAN OF CARE/TREATMENT PLAN: 1x/day, 5 days/ week x 1week Initiate Occupational Therapy Services for bathing, dressing, grooming, toileting, eating, transfer training. DISCHARGE RECOMMENDATIONS OT recommends that pt return home with HH services vs. SNF TREATMENT TIME/MINUTES/CODES 11210, 20 minutes Chula Stanley, OTR/L [facility] [place]
[2022-03-05] MEDS: Albuterol/Ipratropium 3 ML UPD VIAL UPD ×2 (08:27→20:22)
[2022-03-05 09:17] LABS: HBs Antibody, Qual Negative (See Note); HBs Antibody, Quant <3.1 mIU/mL (See Note); Hepatitis B Core Antibody Negative (Negative); Hepatitis B surface Ag Negative (Negative); Hepatitis C Ab w Rflx HCV PCR Negative (Negative)
[2022-03-05 10:05] LABS: HIV-1/2 Ag & Ab Screen Negative (Negative)
[2022-03-05] MEDS: DOXYCYCLINE 100 MG in Normal Saline 100 ML IVPB (14:38)
[2022-03-05] MEDS: VANCOMYCIN/WATER (PEG) 1.5 GM/300 ML BAG IV (15:17)
[2022-03-05] MEDS: Famotidine 20 MG TAB PO (15:19)
--- NOTE | 2022-03-05 15:33 | PT.INTREAT ---
Date of service: 03/05/22 Time of Service: 09:30 PT Notes Visit Reasons: Sepsis Syndrome/UTI, COVID-19 infection, COPD exac Inpatient Physical Therapy Treatment Note [facility] Date: 03/05/2022 PRECAUTIONS: Fall, activity as tolerated, COVID-19 SUBJECTIVE: Tyler states no, not today hon, I'm not getting out of this bed today. He is agreeable to participating in bed-level exercises. OBJECTIVE: PAIN: No c/o pain BED MOBILITY: Patient completes scooting up the bed with supervision GAIT: Refused THEREX: Patient was instructed in a LE strengthening and stabilization program, to include ankle pumps (R), quad sets, glute sets, SLR, hip flexion and hip abduction. ASSESSMENT: Patient tolerated session without complaint. He would benefit from participating in transfer training. PLAN: Continue with general conditioning and global strengthening for improved activity tolerance. TREATMENT CODE/TIME: 15 minutes; 21800 (09:30)
--- NOTE | 2022-03-05 16:16 | CMPROGNOTE_ITS ---
- If Service Date Differs Date of service: 03/05/22 Time of Service: 16:16 Care Management Progress Note S/O: Tyler is on covid precautions, CM assessed pt via phone. Tyler is awake, alert and easily engages in conversation. He shares that he was discharged from a SNF in [place] on 02/12/22 anbd prefers to defer PT's recommendation of SNF for STR when discharged. He insists on discharging home with Resumption of [facility] RN/PT/OT, when he is medically ready. He will transport via [employer] W/C van and follow up with community providers. He will need to reschedule his outpatient prosthetic consult through [facility]. A: 82 year old male admitted to [facility] on 03/03/22 for Sepsis, UTI, Pneumonia due to COVID-19 virus, acute COPD Exacerbation P: Tyler is [facility] connected. Anticipate he will discharge to SNF for STR vs. Home with resumption of [facility] ST/PT/OT. Tyler will need a prothetic consult with ROBBIE WINSTON. At this time, Tyler declines a referral to [facility] or [facility]. CM will continue to follow.
--- NOTE | 2022-03-05 16:16 | PDOC.CMPRO ---
- If Service Date Differs Date of service: 03/05/22 Time of Service: 16:16 Care Management Progress Note S/O: Tyler is on covid precautions, CM assessed pt via phone. Tyler is awake, alert and easily engages in conversation. He shares that he was discharged from a SNF in [place] on 02/12/22 anbd prefers to defer PT's recommendation of SNF for STR when discharged. He insists on discharging home with [facility]umption of [facility] RN/PT/OT, when he is medically ready. He will transport via [employer] W/C van and follow up with community providers. He will need to reschedule his outpatient prosthetic consult through [facility]. A: 82 year old male admitted to [facility] on 03/03/22 for Sepsis, UTI, Pneumonia due to COVID-19 virus, acute COPD Exacerbation P: Tyler is [facility] connected. Anticipate he will discharge to SNF for STR vs. Home with resumption of [facility] ST/PT/OT. Tyler will need a prothetic consult with [facility]. At this time, Tyler declines a referral to [facility] or [facility]. CM will continue to follow.
--- NOTE | 2022-03-05 17:19 | W.PM.PROGNOT ---
Date of Service Date of service: 03/05/22 Time of Service: 11:00 Assessment and Plan Assessment and plan (1) Sepsis: Start date: 03/04/22 Status: Acute Assessment and plan: Slight AMS - fever, tachycardia, weakness and a cough - broad-spectrum IV antibiotic therapy started Doxy, Vancomycin and Zosyn started Blood cx - gm neg rods; will repeat (2) Pneumonia due to COVID-19 virus: Start date: 03/04/22 Status: Acute Assessment and plan: Clinically the patient has pneumonia and by chest x-ray and ED interpretation this is patchy consistent with COVID-19 infection which is recurrent in this patient. Remdesivir and dexamethasone because of his COPD exacerbation with wheezing though he is not hypoxic. (3) Acute UTI: Start date: 03/04/22 Status: Acute Assessment and plan: Broad-spectrum IV antibiotic therapy should cover this problem with urine culture pending and pathogen and sensitivities to be followed up when converting to oral therapy. Patient did have a marked inflammatory response with elevated WBC and fever. Procalcitonin elevated Bladder scans QID and will US kidneys (4) Acute exacerbation of chronic obstructive pulmonary disease (COPD): Start date: 03/04/22 Status: Acute Assessment and plan: Aggressive nebulizer treatments IV dexamethasone for COVID should help with this acute exacerbation. Patient does continue to smoke daily - smoking cessation; patch (5) Elevated troponin: Status: Acute Assessment and plan: Patient did have a slight bump in his troponins and this is appearing to trend downward with follow-up lab this morning. Patient is a DNR/DNI and this appears to be secondary to cardiac strain and not a primary problem. He appears is on a statin and beta-melissa Echo ordered (6) Continuous tobacco abuse: Status: Chronic Assessment and plan: Hold off on nicotine supplement with patient troponin slightly elevated and patient is not asking for nicotine at this time. Long-term patient should stop smoking. (7) DVT prophylaxis: Status: Acute Assessment and plan: Therapeutic enoxaparin with oxygen requirement (8) Discharge planning issues: Status: Acute Assessment and plan: Home +/- discussed with Dr Dwod. Subjective Subjective Patient reports: no new complaints, feels better, tolerating a regular diet, bowel movement and afebrile; denies diarrhea, blood in stool, nausea, vomiting or shortness of breath Interval history since last seen: Reports feeling stronger Exam Const General: cooperative, comfortable and no acute distress Nutritional Appearance: average body habitus Orientation: alert, awake and oriented x3 HENMT Head: normal to inspection, normocephalic and atraumatic Mouth: oral mucosae normal Eyes General: appearance normal, both eyes and all related structures Resp Effort & Inspection: normal respiratory effort Cardio Rate: regular rate Rhythm: regular rhythm GI Inspection: normal to inspection Palpation: soft Auscultation: normal bowel sounds Extrem General: full ROM Psych Mental Status: mental status grossly normal Speech and Movement: speech and movement normal Mood: congruent mood Affect: normal affect Objective Last Vital Signs Temp 37.1 C 03/05/22 15:23 Pulse 87 03/05/22 15:57 Resp 16 03/05/22 15:23 BP 129/69 03/05/22 15:23 Pulse Ox 94 03/05/22 15:23 Laboratory Results - last 24 hr 03/04/22 03/04/22 03/05/22 08:55 08:55 06:35 WBC RBC Hgb Hct MCV MCH MCHC RDW Plt Count MPV Sodium 132 L Potassium 3.6 Chloride 100 Carbon Dioxide 24.4 Anion Gap 7.6 BUN 35 H Creatinine 1.2 Est GFR (CKD-EPI 2020) 61.13 Glucose 142 H Calcium 7.8 L Magnesium 2.7 H Total Bilirubin 0.4 AST 16 ALT 11 L Alkaline Phosphatase 76 Total Protein 6.4 Albumin 2.1 L Hep Bs Antigen Negative Hep Bs Antibody Negative Hep Bs Antibody, Quant <3.1 Hep B Core Total Ab Negative Hepatitis C Antibody Negative HIV 1&2 Ag/Ab, 4th Gen Negative 03/05/22 06:35 WBC 19.94 H RBC 3.69 L Hgb 10.2 L Hct 31.3 L MCV 85 MCH 27.6 MCHC 32.6 RDW 16.4 H Plt Count 107 L MPV 11.6 H Sodium Potassium Chloride Carbon Dioxide Anion Gap BUN Creatinine Est GFR (CKD-EPI 2020) Glucose Calcium Magnesium Total Bilirubin AST ALT Alkaline Phosphatase Total Protein Albumin Hep Bs Antigen Hep Bs Antibody Hep Bs Antibody, Quant Hep B Core Total Ab Hepatitis C Antibody HIV 1&2 Ag/Ab, 4th Gen Reviewed Pertinent PMH: Yes
[2022-03-05] MEDS: Lisinopril 10 MG TAB PO (20:19)
[2022-03-05] MEDS: Ascorbic Acid 500 MG TAB 1000 MG PO (20:20)
[2022-03-05] MEDS: Atorvastatin 40 MG TAB PO (22:44)
[2022-03-05] MEDS: traZODone 100 MG TAB 300 MG PO (22:45)
[2022-03-05] MEDS: REMDESIVIR 100 MG in Normal Saline 250 ML 250 MG IVPB (22:55)
[2022-03-06] VITALS (10 sets, daily range): BP systolic 108–129; BP diastolic 64–69; PULSE 66–75; RESP 4–18; TEMP 36.4–36.9; O2SAT 91–93
[2022-03-06 00:10] LABS: Legionella Ag Detection Urine Negative (Negative)
[2022-03-06] MEDS: PIPERACILLIN/TAZO 4.5 GM in Normal Saline 100 ML IVPB (00:47)
[2022-03-06] MEDS: DOXYCYCLINE 100 MG in Normal Saline 100 ML IVPB (01:01)
[2022-03-06] MEDS: Normal Saline Flush 10 ML SYR IVP ×3 (01:01→08:59)
[2022-03-06 07:54] LABS: HCT 30.5 % (40.0-50.0); HGB 9.8 g/dL (13.5-17.5); MCH 27.1 pg (27.0-33.0); MCHC 32.1 % (32.0-36.0); MCV 85 fL (80-95); MPV 12.3 fL (8.0-11.0); Platelet Count 113 10^3/uL (130-400); RBC 3.61 10^6/uL (4.36-5.78); RDW 16.8 % (11.8-14.1); RDW-SD 51.9 fL; WBC 14.64 10^3/uL (4.4-10.8)
[2022-03-06] MEDS: Calcium 600mg/Vit D 200U TAB 2 TAB PO (08:00)
[2022-03-06] MEDS: Cholecalciferol (Vitamin D3) 1,000 UNIT TAB 2000 UNITS PO (08:00)
[2022-03-06] MEDS: Furosemide 20 MG TAB PO (08:01)
[2022-03-06] MEDS: Zinc Sulfate 220 MG TAB PO (08:01)
[2022-03-06] MEDS: Tamsulosin 0.4 MG CAPCR PO (08:01)
[2022-03-06] MEDS: Aspirin E.C. 81 MG TABEC PO (08:02)
[2022-03-06] MEDS: Omeprazole 20 MG CAPCR 40 MG PO (08:02)
[2022-03-06] MEDS: Ascorbic Acid 500 MG TAB 1000 MG PO ×2 (08:02→21:30)
[2022-03-06] MEDS: amLODIPine 10 MG TAB 5 MG PO (08:03)
[2022-03-06] MEDS: Potassium Chloride 20 MEQ TABCR PO (08:04)
[2022-03-06 08:06] LABS: Vancomycin, Trough 18.8 ug/mL (10.0-20.0)
[2022-03-06 08:07] LABS: ALT 12 U/L (16-63); AST 12 U/L (15-37); Albumin 1.9 g/dL (3.4-5.0); Alkaline Phosphatase 72 U/L (46-116); Anion Gap 7.5 mmol/L (3-11); BUN 39 mg/dL (7-18); Bilirubin, Total 0.3 mg/dL (0.2-1.0); CO2 24.5 mmol/L (21.0-32.0); CREATININE 1.1 mg/dL (0.70-1.30); Calcium 8.2 mg/dL (8.5-10.1); Chloride 104 mmol/L (98-107); Estimated GFR 67.86 (mL/min/1.73m2); Glucose 126 mg/dL (74-106); Magnesium 2.7 mg/dL (1.8-2.4); Potassium 3.5 mmol/L (3.5-5.1); Sodium 136 mmol/L (136-145); Total Protein 6.1 g/dL (6.4-8.2)
[2022-03-06] MEDS: Enoxaparin 100 MG/ML SYR 90 MG SC (08:07)
[2022-03-06] MEDS: Dexamethasone 10 MG/ML VIAL IVP (08:16)
[2022-03-06] MEDS: VANCOMYCIN/WATER (PEG) 1 GM/200 ML BAG IV (08:59)
[2022-03-06] MEDS: Albuterol/Ipratropium 3 ML UPD VIAL UPD ×2 (10:28→21:57)
[2022-03-06] MEDS: cefTRIAXone 2 GM/50 ML BAG IVPB (10:39)
--- NOTE | 2022-03-06 13:13 | PGE_ITS ---
Date of Service Date of service: 03/06/22 Time of Service: 13:13 Assessment and Plan Assessment and plan (1) Sepsis: Start date: 03/04/22 Status: Acute Assessment and plan: Slight AMS - fever, tachycardia, weakness and a cough - Doxy, Vancomycin and Zosyn discontinued and ceftriaxone started per recommendations [facility] and [place] Blood cx - gm neg rods; klebsiella pneumoniae (2) Pneumonia due to COVID-19 virus: Start date: 03/04/22 Status: Acute Assessment and plan: Clinically the patient has pneumonia and by chest x-ray and ED interpretation this is patchy consistent with COVID-19 infection which is recurrent in this patient. Remdesivir day and dexamethasone because of his COPD exacerbation with wheezing though he is not hypoxic. (3) Acute UTI: Start date: 03/04/22 Status: Acute Assessment and plan: Broad-spectrum IV antibiotic therapy should cover this problem with urine culture pending and pathogen and sensitivities to be followed up when converting to oral therapy. Patient did have a marked inflammatory response with elevated WBC and fever. Procalcitonin elevated Bladder scans QID Kidney US - 1. Examination limited by patient body habitus and mobility. 2. Bilateral renal cysts.? No follow-up is recommended. 3. No evidence of hydronephrosis.? 4. Inadequate filling of the urinary bladder.? There was thickening of the urinary bladder wall.? This may be due to incomplete distension but cystitis, neurogenic bladder or chronic bladder outlet obstruction should be considered. 5. Prostatomegaly. (4) Acute exacerbation of chronic obstructive pulmonary disease (COPD): Start date: 03/04/22 Status: Acute Assessment and plan: Aggressive nebulizer treatments IV dexamethasone for COVID should help with this acute exacerbation. Patient does continue to smoke daily - smoking cessation; patch held (5) Elevated troponin: Status: Acute Assessment and plan: Patient did have a slight bump in his troponins and this is appearing to trend downward. Patient is a DNR/DNI and this appears to be secondary to cardiac strain and not a primary problem. He appears is on a statin and beta-melissa Echo: Aortic stenosis, LV systolic fxn nl; EF 63%; No wall motion abnormalities, RV systolic fxn nl; sig pulmonary htn RV systolic pressure 55 mmhg; mild mitral regurg; mild to moderate tricuspid regurg (6) Weak: Status: Acute Assessment and plan: Rest, hydration, PT (7) Continuous tobacco abuse: Status: Chronic Assessment and plan: Hold off on nicotine supplement with patient troponin slightly elevated and patient is not asking for nicotine at this time. Long-term patient should stop smoking. (8) DVT prophylaxis: Status: Acute Assessment and plan: Therapeutic enoxaparin with oxygen requirement (9) Discharge planning issues: Status: Acute Assessment and plan: Home +/- HH discussed with Dr Dowd. Subjective Subjective Patient reports: no new complaints, feels better, tolerating a regular diet, bowel movement and afebrile; denies diarrhea or vomiting Interval history since last seen: No complaints, states he is tired and has a hard time sitting upright. I did help him sit up so I could listen to his lungs - he was unable to stay in an upright seated position without me holding him up. Exam Const General: cooperative, comfortable and no acute distress Nutritional Appearance: average body habitus Orientation: alert, awake and oriented x3 HENMT Head: normal to inspection, normocephalic and atraumatic Mouth: oral mucosae normal Eyes General: appearance normal, both eyes and all related structures Resp Effort & Inspection: normal respiratory effort Auscultation: wheezes expiratory wheezes (throughout) Cardio Rate: regular rate Rhythm: regular rhythm GI Inspection: normal to inspection Palpation: soft Auscultation: normal bowel sounds Extrem General: full ROM Psych Mental Status: mental status grossly normal Speech and Movement: speech and movement normal Mood: congruent mood Affect: normal affect Objective Last Vital Signs Temp 36.5 C 03/06/22 11:55 Pulse 75 03/06/22 11:55 Resp 18 03/06/22 11:55 BP 108/64 03/06/22 11:55 Pulse Ox 92 03/06/22 11:55 Laboratory Results - last 24 hr 03/03/22 03/06/22 03/06/22 21:30 07:35 07:35 WBC RBC Hgb Hct MCV MCH MCHC RDW Plt Count MPV Sodium 136 Potassium 3.5 Chloride 104 Carbon Dioxide 24.5 Anion Gap 7.5 BUN 39 H Creatinine 1.1 Est GFR (CKD-EPI 2020) 67.86 Glucose 126 H Calcium 8.2 L Magnesium 2.7 H Total Bilirubin 0.3 AST 12 L ALT 12 L Alkaline Phosphatase 72 Total Protein 6.1 L Albumin 1.9 L Vancomycin Trough 18.8 Urine Legionella Ag Negative 03/06/22 07:35 WBC 14.64 H RBC 3.61 L Hgb 9.8 L Hct 30.5 L MCV 85 MCH 27.1 MCHC 32.1 RDW 16.8 H Plt Count 113 L MPV 12.3 H Sodium Potassium Chloride Carbon Dioxide Anion Gap BUN Creatinine Est GFR (CKD-EPI 2020) Glucose Calcium Magnesium Total Bilirubin AST ALT Alkaline Phosphatase Total Protein Albumin Vancomycin Trough Urine Legionella Ag
--- NOTE | 2022-03-06 15:00 | OT.INNT ---
Date of service: 03/06/22 Occupational Therapy Notes 03/06/22 Pt refused OT services for today. OT will attempt to resume them tomorrow. Chula Stanley, OTR/L
--- NOTE | 2022-03-06 15:11 | PT.INTREAT ---
Date of service: 03/06/22 Time of Service: 10:02 PT Notes Visit Reasons: Sepsis Syndrome/UTI, COVID-19 infection, COPD exac Inpatient Physical Therapy Treatment Note [facility] Date: 03/06/2022 PRECAUTIONS: Fall, activity as tolerated, COVID-19 SUBJECTIVE: Tyler states no, not today hon, I'm not getting out of this bed today. He is agreeable to participating in bed-level exercises. OBJECTIVE: Nursing present to discuss benefits of movement and participation in PT interventions for strengthening and general health. PAIN: No c/o pain BED MOBILITY: Supine-sit: I Sit-supine: I GAIT: Refused THEREX: Patient was instructed in a LE strengthening and stabilization program, to include ankle pumps (R), quad sets, glute sets, SLR, hip flexion and hip abduction. ASSESSMENT: Patient tolerated session without complaint of pain nor fatigue. He would benefit from participating in further transfer training. PLAN: Continue with general conditioning and global strengthening for improved activity tolerance. TREATMENT CODE/TIME: 32 minutes; 11774, [id number] (10:02)
--- NOTE | 2022-03-06 16:43 | PDOC.CMPRO ---
- If Service Date Differs Date of service: 03/06/22 Time of Service: 16:43 Care Management Progress Note S/O: Tyler requires inpatient admission for IV ABX and steroids. He is 93% on RA and afebrile. Tyler worked with PT today. His plan is to discharge home when he is medically ready with resumption of [facility] services. He remains unwilling to discharge SNF for short term rehab and feels that he has everything he needs at home. Per PT, [facility] OT is ordering him a longer shower chair. CM will continue to follow. A: 82 year old male admitted to [facility] on 03/03/22 Sepsis, UTI, Pneumonia due to COVID-19 virus, acute COPD Exacerbation P: Tyler defers PT discharge recommendation of SNF for STR. He insists on discharging home with Resumption of [facility] RN/PT/OT, when he is medically ready. He will transport via [facility] W[facility]C van and follow up with community providers. He will need to reschedule his outpatient prosthetic consult through [facility].
[2022-03-06] MEDS: Insulin Aspart 300 UNITS/3 ML PEN SC (17:09)
[2022-03-06] MEDS: Lisinopril 10 MG TAB PO (21:32)
[2022-03-06] MEDS: traZODone 100 MG TAB 300 MG PO (21:34)
[2022-03-06] MEDS: REMDESIVIR 100 MG in Normal Saline 250 ML 250 MG IVPB (21:45)
[2022-03-06 23:35] LABS: Streptococcus Pneumoniae Ag, U Negative (Negative)
[2022-03-07] VITALS (11 sets, daily range): BP systolic 133–154; BP diastolic 68–73; PULSE 71–81; RESP 4–20; TEMP 36.1–37.1; O2SAT 90–93
--- NOTE | 2022-03-07 | DI.CT_ITS ---
Exam(s) CT RENAL COLIC WO EXAM: CT RENAL COLIC WO CLINICAL HISTORY: UTI. TECHNIQUE: Imaging Protocol: Axial computed tomography images with coronal and sagittal reformatted images were created and reviewed. COMPARISON: CT CT CHEST/ABD/PEL W from 07/07/2021 CR,XR XR PORTABLE CHEST AP from 03/03/2022 FINDINGS: ABDOMEN: Lung Bases: There are small bilateral pleural effusions. There is subjacent infiltrates present. Th ere is calcification of the pleural and diaphragmatic surfaces which may reflect prior asbestos expos ure. Coronary artery calcifications are present. Liver: There is a lobulated contour of the liver with an enlarged left lobe and caudate lobe which ma y reflect hepatic cirrhosis. No measurable mass. Gallbladder and biliary tract: The gallbladder is absent. There is pneumobilia. There is no biliary ductal dilatation. Pancreas: Normal density, no abnormal calcifications or inflammatory process. Spleen: Normal. Kidneys: Normal size, contour and axis.There is bilateral nephrolithiasis. There is a 3 mm proximal left ureteral stone near the UPJ. There is mild hydronephrosis. There are bilateral renal cysts. Adrenal glands: No mass is seen. Lymph nodes: Within normal limits. Abdominal Aorta: Abdominal portion non-dilated. There is extensive atherosclerosis present. PELVIS: Bladder:The urinary bladder wall is diffusely thickened. Bowel: No obstruction or bowel wall thickening. No evidence of appendicitis. Peritoneal cavity: There is a small amount of abdominal ascites. No free air. Reproductive organs: Note is made of a penile implant. Bones: There is a beena and screw in the proximal left femur. Postsurgical changes are seen at L4-L5. Age-appropriate degenerative changes are seen in the spine. Soft Tissues: Within normal limits. IMPRESSION: 1. 3 mm left UPJ stone causing mild hydronephrosis. 2. Bilateral nephrolithiasis. 3. 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 4. Small bilateral pleural effusions and subjacent infiltrates which may represent atelectasis or pne umonia. RADIATION DOSE DELIVERED: 1,156.18mGy.cm Total DLP DATA REPOSITORY: All CT scans at this facility are submitted to the National Radiology Data Registry (NRDR) Dose Index Registry (DIR) with the [employer] (ACR). RADIATION OPTIMIZATION: All CT scans at this facility use at least one of these dose optimization te chniques: automated exposure control; mA and/or kV adjustment per patient size (includes targeted exa ms where dose is matched to clinical indication); or iterative reconstruction.
[2022-03-07 07:00] LABS: Abs Immature Grans 0.05 10^3/uL (0.0-0.06); Absolute Basophil Count 0.01 10^3/uL (0.0-0.2); Absolute Monocyte Count 0.51 10^3/uL (0.1-0.8); Basophils % 0.1; HCT 31.7 % (40.0-50.0); Immature Grans % 0.4; Lymphocytes % 5.3; MCH 26.7 pg (27.0-33.0); MCHC 31.5 % (32.0-36.0); MCV 85 fL (80-95); MPV 11.3 fL (8.0-11.0); Monocytes % 4.3; Neutrophils % 89.9; Platelet Count 130 10^3/uL (130-400); RBC 3.74 10^6/uL (4.36-5.78); RDW 17.2 % (11.8-14.1); RDW-SD 53.6 fL; WBC 11.78 10^3/uL (4.4-10.8)
[2022-03-07 07:02] LABS: Absolute Lymphocyte Count 0.62 10^3/uL (1.2-3.4); Absolute Neutrophil Count 10.59 10^3/uL (1.2-6.7)
[2022-03-07 07:16] LABS: Anion Gap 7.1 mmol/L (3-11); BUN 33 mg/dL (7-18); CO2 25.9 mmol/L (21.0-32.0); CREATININE 1.2 mg/dL (0.70-1.30); Calcium 8.6 mg/dL (8.5-10.1); Chloride 105 mmol/L (98-107); Estimated GFR 61.13 (mL/min/1.73m2); Glucose 124 mg/dL (74-106); Magnesium 2.3 mg/dL (1.8-2.4); Sodium 138 mmol/L (136-145)
[2022-03-07] MEDS: Tiotropium Bromide-Respimat 10 PUFF INH 2 PUFF IH (07:59)
[2022-03-07] MEDS: amLODIPine 10 MG TAB 5 MG PO (10:29)
[2022-03-07] MEDS: cefTRIAXone 2 GM/50 ML BAG IVPB (10:30)
[2022-03-07] MEDS: Aspirin E.C. 81 MG TABEC PO (10:30)
[2022-03-07] MEDS: Ascorbic Acid 500 MG TAB 1000 MG PO ×2 (10:30→20:51)
[2022-03-07] MEDS: Calcium 600mg/Vit D 200U TAB 2 TAB PO (10:30)
[2022-03-07] MEDS: Dexamethasone 10 MG/ML VIAL IVP (10:31)
[2022-03-07] MEDS: Cholecalciferol (Vitamin D3) 1,000 UNIT TAB 2000 UNITS PO (10:31)
[2022-03-07] MEDS: Enoxaparin 100 MG/ML SYR 90 MG SC (10:32)
[2022-03-07] MEDS: Furosemide 20 MG TAB PO (10:32)
[2022-03-07] MEDS: Tamsulosin 0.4 MG CAPCR PO (10:33)
[2022-03-07] MEDS: Potassium Chloride 20 MEQ TABCR PO (10:33)
[2022-03-07] MEDS: Omeprazole 20 MG CAPCR 40 MG PO (10:33)
[2022-03-07] MEDS: Zinc Sulfate 220 MG TAB PO (10:33)
[2022-03-07] MEDS: Normal Saline Flush 10 ML SYR IVP ×2 (10:34→11:47)
[2022-03-07] MEDS: Albuterol/Ipratropium 3 ML UPD VIAL UPD ×2 (10:40→20:52)
--- NOTE | 2022-03-07 11:05 | PTTR_ITS ---
Date of service: 03/07/22 Time of Service: 09:45 PT Notes Visit Reasons: Sepsis Syndrome/UTI, COVID-19 infection, COPD exac Inpatient Physical Therapy Treatment Note [facility] Date: 03/07/2022 PRECAUTIONS: Fall, activity as tolerated, COVID-19 SUBJECTIVE: Tyler is feeling upset today. He states that he cannot get out of bed until he sees a nurse OBJECTIVE: PAIN: No c/o pain BED MOBILITY: Bed-wheelchair: S, patient requires minimal assist with set-up as he has different equipment and set-up at home Wheelchair-bed: S, patient requires minimal assist with set-up as he has different equipment and set-up at home Supine-sit: I Sit-supine: I GAIT: Refused THEREX: Patient was instructed in a LE strengthening program, to include ankle p umps (R), LAQ, hip flexion and hip abduction, completed while seated in wheelchair. ASSESSMENT: Patient tolerated session with complaint of SOB with transfer. He demonstrates independence with bed mobility and transfers at this time, only requiring minimal assist for set up. PLAN: Continue with general conditioning and global strengthening for improved activity tolerance. TREATMENT CODE/TIME: 40 minutes; 34515 x2, [id number] (09:45)
--- NOTE | 2022-03-07 11:13 | CMPROGNOTE_ITS ---
- If Service Date Differs Date of service: 03/07/22 Time of Service: 11:13 Care Management Progress Note S/O: Tyler requires inpatient admission for IV ABX and steroids. Per Hospitalist, Tyler may require acute transfer vs down and back. [facility]. Tyler's overall goal is to discharge home when he is medically ready with resumption of [facility] services. He remains unwilling to discharge SNF for short term rehab and feels that he has everything he needs at home. CM will continue to follow. A: 82 year old male admitted to [facility] on 03/03/22 Sepsis, UTI, Pneumonia due to COVID-19 virus, acute COPD Exacerbation P: Tyler defers PT discharge recommendation of SNF for STR. He insists on discharging home with Resumption of [facility] RN/PT/OT, when he is medically ready. He will transport via [facility] W[facility]C van and follow up with community providers. He will need to reschedule his outpatient prosthetic consult through [facility].
--- NOTE | 2022-03-07 15:03 | W.PM.PROGNOT ---
Date of Service Date of service: 03/07/22 Time of Service: 15:03 Assessment and Plan Assessment and plan (1) Sepsis: Start date: 03/04/22 Status: Acute Assessment and plan: Ceftriaxone day 2 Blood cx - gm neg rods; klebsiella pneumoniae (2) Pneumonia due to COVID-19 virus: Start date: 03/04/22 Status: Acute Assessment and plan: Clinically the patient has pneumonia and by chest x-ray and ED interpretation this is patchy consistent with COVID-19 infection which is recurrent in this patient. Remdesivir and dexamethasone because of his COPD exacerbation with wheezing though he is not hypoxic. (3) Acute UTI: Start date: 03/04/22 Status: Acute Assessment and plan: Broad-spectrum IV antibiotic therapy should cover this problem with urine culture pending and pathogen and sensitivities to be followed up when converting to oral therapy. Patient did have a marked inflammatory response with elevated WBC and fever. Procalcitonin elevated Bladder scans QID Kidney US - 03/04/22 1. Examination limited by patient body habitus and mobility. 2. Bilateral renal cysts.? No follow-up is recommended. 3. No evidence of hydronephrosis.? 4. Inadequate filling of the urinary bladder.? There was thickening of the urinary bladder wall.? This may be due to incomplete distension but cystitis, neurogenic bladder or chronic bladder outlet obstruction should be considered. 5. Prostatomegaly. Renal CT - 03/07/22 1. 3 mm left UPJ stone causing mild hydronephrosis. 2. Bilateral nephrolithiasis. 3. 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 4. Small bilateral pleural effusions and subjacent infiltrates which may represent atelectasis or pneumonia.? Multiple calls to try to get him transferred to urology; no urologist here this week; [facility] and affiliates; [facility] and [facility]; all advised to call back 03/08/22; Call back to [facility] re down and back for IR; awaiting return call @ 1800h [facility] is [facility] to transfer [facility] (4) Acute exacerbation of chronic obstructive pulmonary disease (COPD): Start date: 03/04/22 Status: Acute Assessment and plan: Aggressive nebulizer treatments scheduled duoneb every 4 h IV dexamethasone for COVID should help with this acute exacerbation. Patient does continue to smoke daily - smoking cessation; patch held (5) Elevated troponin: Status: Acute Assessment and plan: Patient did have a slight bump in his troponins then trended downward.This is probably secondary to cardiac strain and not a primary problem. Patient is a DNR/DNI He is on a statin and beta-melissa (6) Weak: Status: Acute Assessment and plan: Rest, hydration, PT (7) Continuous tobacco abuse: Status: Chronic Assessment and plan: Hold off on nicotine supplement with patient troponin slightly elevated and patient is not asking for nicotine at this time. Long-term goal - patient should stop smoking. (8) DVT prophylaxis: Status: Acute Assessment and plan: Therapeutic enoxaparin with oxygen requirement (9) Discharge planning issues: Status: Acute Assessment and plan: Transfer when bed available discussed with Dr Dowd. Subjective Subjective Patient reports: no new complaints, tolerating a regular diet, no bowel movement and afebrile; denies diarrhea, nausea or vomiting Exam Const General: cooperative, comfortable and no acute distress Nutritional Appearance: average body habitus Orientation: alert, awake and oriented x3 HENMT Head: normal to inspection, normocephalic and atraumatic Mouth: oral mucosae normal Eyes General: appearance normal, both eyes and all related structures Resp Effort & Inspection: normal respiratory effort Auscultation: wheezes expiratory wheezes (throughout) Cardio Rate: regular rate Rhythm: regular rhythm GI Inspection: normal to inspection Palpation: soft Auscultation: normal bowel sounds Extrem General: full ROM Psych Mental Status: mental status grossly normal Speech and Movement: speech and movement normal Mood: congruent mood Affect: normal affect Objective Last Vital Signs Temp 36.5 C 03/07/22 11:49 Pulse 81 03/07/22 11:49 Resp 16 03/07/22 11:49 BP 133/72 03/07/22 11:49 Pulse Ox 91 L 03/07/22 11:49 Laboratory Results - last 24 hr 03/03/22 03/03/22 03/07/22 21:30 21:30 06:00 WBC RBC Hgb Hct MCV MCH MCHC RDW Plt Count MPV Immature Gran % Neutrophils % Lymphocytes % Monocytes % Eosinophils % Basophils % Nucleated RBC % Absolute Neutrophils Absolute Lymphocytes Absolute Monocytes Absolute Eosinophils Absolute Basophils Sodium 138 Potassium 4.0 Chloride 105 Carbon Dioxide 25.9 Anion Gap 7.1 BUN 33 H Creatinine 1.2 Est GFR (CKD-EPI 2020) 61.13 Glucose 124 H Calcium 8.6 Magnesium 2.3 M. pneumoniae Source Cancelled M. pneumoniae (PCR) Cancelled Ur Strep pneumoniae Ag Negative 03/07/22 06:00 WBC 11.78 H RBC 3.74 L Hgb 10.0 L Hct 31.7 L MCV 85 MCH 26.7 L MCHC 31.5 L RDW 17.2 H Plt Count 130 MPV 11.3 H Immature Gran % 0.4 Neutrophils % 89.9 Lymphocytes % 5.3 Monocytes % 4.3 Eosinophils % 0.0 Basophils % 0.1 Nucleated RBC % 0.0 Absolute Neutrophils 10.59 H Absolute Lymphocytes 0.62 L Absolute Monocytes 0.51 Absolute Eosinophils 0.00 Absolute Basophils 0.01 Sodium Potassium Chloride Carbon Dioxide Anion Gap BUN Creatinine Est GFR (CKD-EPI 2020) Glucose Calcium Magnesium M. pneumoniae Source M. pneumoniae (PCR) Ur Strep pneumoniae Ag Reviewed Pertinent PMH: Yes Objective Narrative Objective Narrative: Echo; 03/04/22: Aortic stenosis, LV systolic fxn nl; EF 63%; No wall motion abnormalities, RV systolic fxn nl; sig pulmonary htn RV systolic pressure 55 mmhg; mild mitral regurg; mild to moderate tricuspid regurg Renal US; 03/04/2022: 1. Examination limited by patient body habitus and mobility. 2. Bilateral renal cysts.? No follow-up is recommended. 3. No evidence of hydronephrosis.? 4. Inadequate filling of the urinary bladder.? There was thickening of the urinary bladder wall.? This may be due to incomplete distension but cystitis, neurogenic bladder or chronic bladder outlet obstruction should be considered. 5. Prostatomegaly. Renal CT; 03/07/2022 : IMPRESSION: 1. 3 mm left UPJ stone causing mild hydronephrosis. 2. Bilateral nephrolithiasis. 3. 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 4. Small bilateral pleural effusions and subjacent infiltrates which may represent atelectasis or pneumonia.?
[2022-03-07] MEDS: Insulin Aspart 300 UNITS/3 ML PEN SC (17:46)
[2022-03-07] MEDS: Atorvastatin 40 MG TAB PO (20:52)
[2022-03-07] MEDS: Docusate Sodium 100 MG CAP PO (20:52)
[2022-03-07] MEDS: Lisinopril 10 MG TAB PO (20:52)
[2022-03-07] MEDS: Polyethylene Glycol 3350 17 GM PACKET PO (20:53)
[2022-03-07] MEDS: REMDESIVIR 100 MG in Normal Saline 250 ML 250 MG IVPB (22:16)
[2022-03-07] MEDS: traZODone 100 MG TAB 300 MG PO (22:19)
[2022-03-08] VITALS (8 sets, daily range): BP systolic 139–150; BP diastolic 71; PULSE 71–83; RESP 7–20; TEMP 36.7–36.8; O2SAT 92
[2022-03-08] MEDS: Albuterol/Ipratropium 3 ML UPD VIAL UPD (06:09)
[2022-03-08 06:34] LABS: Abs Immature Grans 0.05 10^3/uL (0.0-0.06); Absolute Basophil Count 0.01 10^3/uL (0.0-0.2); Absolute Lymphocyte Count 0.53 10^3/uL (1.2-3.4); Absolute Monocyte Count 0.58 10^3/uL (0.1-0.8); Absolute Neutrophil Count 6.17 10^3/uL (1.2-6.7); Basophils % 0.1; HCT 31.3 % (40.0-50.0); HGB 10.2 g/dL (13.5-17.5); Immature Grans % 0.7; Lymphocytes % 7.2; MCH 27.3 pg (27.0-33.0); MCHC 32.6 % (32.0-36.0); MCV 84 fL (80-95); MPV 12.8 fL (8.0-11.0); Monocytes % 7.9; Neutrophils % 84.1; Platelet Count 132 10^3/uL (130-400); RBC 3.73 10^6/uL (4.36-5.78); RDW 17.5 % (11.8-14.1); RDW-SD 54.4 fL; WBC 7.34 10^3/uL (4.4-10.8)
[2022-03-08 06:51] LABS: Anion Gap 5.1 mmol/L (3-11); BUN 31 mg/dL (7-18); C-Reactive Protein 3.39 mg/dL (0.0-0.3); CO2 26.9 mmol/L (21.0-32.0); CREATININE 0.9 mg/dL (0.70-1.30); Chloride 107 mmol/L (98-107); Estimated GFR 86.34 (mL/min/1.73m2); Glucose 117 mg/dL (74-106); Magnesium 1.9 mg/dL (1.8-2.4); Sodium 139 mmol/L (136-145)
[2022-03-08] MEDS: Tiotropium Bromide-Respimat 10 PUFF INH 2 PUFF IH (09:06)
--- NOTE | 2022-03-08 09:33 | CMPROGNOTE_ITS ---
- If Service Date Differs Date of service: 03/08/22 Time of Service: 09:33 Care Management Progress Note S/O: Tyler is going to [facility] for a down and back procedure. EMS transportation is arranged for 1045. CM faxed [facility] supporting records, as requested. CM will follow. A: 82 year old male admitted to [facility] on 03/03/22 Sepsis, UTI, Pneumonia due to COVID-19 virus, acute COPD Exacerbation P: Tyler defers PT discharge recommendation to SNF for STR. [facility], if needed otherwise he insists on discharging home with [facility] of [facility] RN/PT/OT, when he is medically ready. He will transport via [facility] W[facility]C van and follow up with community providers. He will need to reschedule his outpatient prosthetic consult through [facility].
--- NOTE | 2022-03-08 09:33 | PDOC.CMPRO ---
- If Service Date Differs Date of service: 03/08/22 Time of Service: 09:33 Care Management Progress Note S/O: Tyler is going to [facility] for a down and back procedure. EMS transportation is arranged for 1045. CM faxed [facility] supporting records, as requested. CM will follow. A: 82 year old male admitted to [facility] on 03/03/22 Sepsis, UTI, Pneumonia due to COVID-19 virus, acute COPD Exacerbation P: Tyler defers PT discharge recommendation to SNF for STR. [facility], if needed otherwise he insists on discharging home with [facility] of [facility] RN/PT/OT, when he is medically ready. He will transport via [facility] van and follow up with community providers. He will need to reschedule his outpatient prosthetic consult through [facility].
[2022-03-08] MEDS: cefTRIAXone 2 GM/50 ML BAG IVPB (09:40)
[2022-03-08] MEDS: Aspirin E.C. 81 MG TABEC PO (09:44)
[2022-03-08] MEDS: amLODIPine 10 MG TAB 5 MG PO (09:45)
[2022-03-08] MEDS: Potassium Chloride 20 MEQ TABCR PO (09:46)
[2022-03-08] MEDS: Calcium 600mg/Vit D 200U TAB 2 TAB PO (09:47)
[2022-03-08] MEDS: Normal Saline Flush 10 ML SYR IVP ×3 (09:47→21:20)
[2022-03-08] MEDS: Tamsulosin 0.4 MG CAPCR PO (09:47)
[2022-03-08] MEDS: Omeprazole 20 MG CAPCR 40 MG PO (09:50)
[2022-03-08] MEDS: Dexamethasone 10 MG/ML VIAL IVP (09:54)
--- NOTE | 2022-03-08 12:33 | W.PM.PROGNOT ---
Date of Service Date of service: 03/08/22 Time of Service: 12:33 Assessment and Plan Assessment and plan (1) Sepsis: Status: Acute Assessment and plan: Ceftriaxone day 3 Blood cx - gm neg rods; klebsiella pneumoniae (2) Pneumonia due to COVID-19 virus: Status: Acute Assessment and plan: Clinically the patient has pneumonia and by chest x-ray and ED interpretation this is patchy consistent with COVID-19 infection which is recurrent in this patient. Remdesivir and dexamethasone because of his COPD exacerbation with wheezing though he is not hypoxic. patient is declining multivitamins and lovenox ordered for covid. (3) Acute UTI: Status: Acute Assessment and plan: growing Kleb pneumo like in the blood. Kidney US - 03/04/22 1. Examination limited by patient body habitus and mobility. 2. Bilateral renal cysts.? No follow-up is recommended. 3. No evidence of hydronephrosis.? 4. Inadequate filling of the urinary bladder.? There was thickening of the urinary bladder wall.? This may be due to incomplete distension but cystitis, neurogenic bladder or chronic bladder outlet obstruction should be considered. 5. Prostatomegaly. Renal CT - 03/07/22 1. 3 mm left UPJ stone causing mild hydronephrosis. 2. Bilateral nephrolithiasis. 3. 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 4. Small bilateral pleural effusions and subjacent infiltrates which may represent atelectasis or pneumonia.? arrangements have been made for nephrotomy tube at [facility] (4) Acute exacerbation of chronic obstructive pulmonary disease (COPD): Status: Acute Assessment and plan: Aggressive nebulizer treatments scheduled duoneb every 4 h IV dexamethasone for COVID should help with this acute exacerbation. Patient does continue to smoke daily - smoking cessation; patch held (5) Elevated troponin: Status: Acute Assessment and plan: peaked at 91 which was on admission, now normalized. consider outpatient cardiology (6) Weak: Status: Acute (7) Continuous tobacco abuse: Status: Chronic Assessment and plan: Hold off on nicotine supplement with patient troponin slightly elevated and patient is not asking for nicotine at this time. Long-term goal - patient should stop smoking. (8) DVT prophylaxis: Status: Acute Assessment and plan: Therapeutic enoxaparin with oxygen requirement recommended but patient refuses. teds and scds (9) Discharge planning issues: Status: Acute Assessment and plan: will return to [facility] when stable. discussed with Dr Dowd. Subjective Subjective Patient reports: no new complaints Interval history since last seen: patient has been transported to [facility] by ground EMS for nephrostomy tube placement He returns stating that he doesn't want lovenox injections or multivitamins any longer. requested finger checks be discontinued also. returns from [facility] with no c/o pain, left sided nephrotomy tube in place, draining bloody liquid. Exam Narrative Exam Narrative: patient is out of the building at time of rounds. Objective Last Vital Signs Temp 36.8 C 03/08/22 08:41 Pulse 83 03/08/22 08:41 Resp 18 03/08/22 08:41 BP 139/71 03/08/22 08:41 Pulse Ox 92 03/08/22 08:41 Laboratory Results - last 24 hr 03/03/22 03/08/22 03/08/22 21:30 05:35 05:35 WBC 7.34 RBC 3.73 L Hgb 10.2 L Hct 31.3 L MCV 84 MCH 27.3 MCHC 32.6 RDW 17.5 H Plt Count 132 MPV 12.8 H Immature Gran % 0.7 Neutrophils % 84.1 Lymphocytes % 7.2 Monocytes % 7.9 Eosinophils % 0.0 Basophils % 0.1 Nucleated RBC % 0.0 Absolute Neutrophils 6.17 Absolute Lymphocytes 0.53 L Absolute Monocytes 0.58 Absolute Eosinophils 0.00 Absolute Basophils 0.01 Sodium 139 Potassium 4.0 Chloride 107 Carbon Dioxide 26.9 Anion Gap 5.1 BUN 31 H Creatinine 0.9 Est GFR (CKD-EPI 2020) 86.34 Glucose 117 H Calcium 9.0 Magnesium 1.9 C-Reactive Protein 3.39 H M. pneumoniae Source Cancelled M. pneumoniae (PCR) Cancelled
--- NOTE | 2022-03-08 14:17 | OT.INNT ---
Occupational Therapy Notes 03/08/22 OT attempted to see pt in the am which he refused care. Pt continuously refuses care, if pt refuses care at next session OT will plan to discharge pt from skilled OT services. Chula Stanley, OTR/L
[2022-03-08] MEDS: REMDESIVIR 100 MG in Normal Saline 250 ML 250 MG IVPB (21:20)
[2022-03-08] MEDS: traZODone 100 MG TAB 300 MG PO (22:45)
[2022-03-08] MEDS: Melatonin 3 MG TAB 9 MG PO (22:45)
[2022-03-08] MEDS: Atorvastatin 40 MG TAB PO (22:45)
[2022-03-08] MEDS: Lisinopril 10 MG TAB PO (22:45)
[2022-03-09] VITALS (8 sets, daily range): BP systolic 146–155; BP diastolic 70–77; PULSE 67–97; RESP 16–19; TEMP 36.5–37; O2SAT 92–94
[2022-03-09 07:55] LABS: Abs Immature Grans 0.09 10^3/uL (0.0-0.06); Absolute Basophil Count 0.02 10^3/uL (0.0-0.2); Absolute Eosinophil Count 0.01 10^3/uL (0.0-0.7); Absolute Lymphocyte Count 1.11 10^3/uL (1.2-3.4); Absolute Monocyte Count 0.66 10^3/uL (0.1-0.8); Absolute Neutrophil Count 9.66 10^3/uL (1.2-6.7); Basophils % 0.2; Eosinophils % 0.1; HCT 32.8 % (40.0-50.0); HGB 10.5 g/dL (13.5-17.5); Immature Grans % 0.8; Lymphocytes % 9.6; MCH 26.9 pg (27.0-33.0); MCV 84 fL (80-95); MPV 11.8 fL (8.0-11.0); Monocytes % 5.7; Neutrophils % 83.6; Platelet Count 160 10^3/uL (130-400); RDW 17.5 % (11.8-14.1); RDW-SD 54.7 fL; WBC 11.56 10^3/uL (4.4-10.8)
[2022-03-09 08:09] LABS: INR 1.1 (0.9-1.1); Prothrombin Time 11.1 sec (9.3-11.0)
[2022-03-09 08:26] LABS: Anion Gap 5.8 mmol/L (3-11); BUN 29 mg/dL (7-18); CO2 28.2 mmol/L (21.0-32.0); CREATININE 0.7 mg/dL (0.70-1.30); Chloride 106 mmol/L (98-107); Estimated GFR 93.15 (mL/min/1.73m2); Ferritin 122 ng/mL (26-388); Glucose 135 mg/dL (74-106); Magnesium 1.8 mg/dL (1.8-2.4); Potassium 4.2 mmol/L (3.5-5.1); Sodium 140 mmol/L (136-145)
[2022-03-09 08:29] LABS: D-Dimer 2700 ng/mlFEU (<500)
[2022-03-09 08:35] LABS: C-Reactive Protein 3.41 mg/dL (0.0-0.3)
[2022-03-09 08:37] LABS: Procalcitonin 1.3 ng/mL
[2022-03-09] MEDS: Tiotropium Bromide-Respimat 10 PUFF INH 2 PUFF IH (08:42)
[2022-03-09] MEDS: Omeprazole 20 MG CAPCR 40 MG PO (09:18)
[2022-03-09] MEDS: amLODIPine 10 MG TAB 5 MG PO (09:19)
[2022-03-09] MEDS: Tamsulosin 0.4 MG CAPCR PO (09:19)
[2022-03-09] MEDS: Aspirin E.C. 81 MG TABEC PO (09:19)
[2022-03-09] MEDS: Potassium Chloride 20 MEQ TABCR PO (09:19)
[2022-03-09] MEDS: Dexamethasone 10 MG/ML VIAL IVP (09:20)
[2022-03-09] MEDS: cefTRIAXone 2 GM/50 ML BAG IVPB (09:32)
[2022-03-09] MEDS: Normal Saline Flush 10 ML SYR IVP ×3 (09:32→22:13)
--- NOTE | 2022-03-09 12:44 | PT.INNT ---
PT Notes Visit Reasons: Sepsis Syndrome/UTI, COVID-19 infection, COPD exac refused PT today.
--- NOTE | 2022-03-09 13:47 | PGE_ITS ---
Date of Service Date of service: 03/09/22 Time of Service: 13:47 Assessment and Plan Assessment and plan (1) Sepsis: Status: Acute Assessment and plan: Ceftriaxone day 4 Blood cx and urine culture - ; klebsiella pneumoniae in setting of left ureteral stone blood cultures negative as of 03/07 (2) Left ureteral stone: Status: Acute Assessment and plan: in setting of UTI and bacteremia. nephrotomy tube placed at [facility] 03/08 awaiting urology consult for Friday (3) Pneumonia due to COVID-19 virus: Status: Acute Assessment and plan: continue Remdesivir and dexamethasone patient is declining multivitamins and lovenox ordered for covid. no oxygen requirements (4) Acute UTI: Status: Acute Assessment and plan: growing Kleb pneumo like in the blood. Kidney US - 03/04/22 1. Examination limited by patient body habitus and mobility. 2. Bilateral renal cysts.? No follow-up is recommended. 3. No evidence of hydronephrosis.? 4. Inadequate filling of the urinary bladder.? There was thickening of the urinary bladder wall.? This may be due to incomplete distension but cystitis, neurogenic bladder or chronic bladder outlet obstruction should be considered. 5. Prostatomegaly. Renal CT - 03/07/22 1. 3 mm left UPJ stone causing mild hydronephrosis. 2. Bilateral nephrolithiasis. 3. 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 4. Small bilateral pleural effusions and subjacent infiltrates which may represent atelectasis or pneumonia.? arrangements have been made for nephrotomy tube at [facility] (5) Acute exacerbation of chronic obstructive pulmonary disease (COPD): Status: Acute Assessment and plan: Aggressive nebulizer treatments scheduled duoneb every 4 h IV dexamethasone for COVID should help with this acute exacerbation. Patient does continue to smoke daily - smoking cessation; patch held (6) Elevated troponin: Status: Acute Assessment and plan: peaked at 91 which was on admission, now normalized. consider outpatient cardiology (7) Weak: Status: Acute Assessment and plan: physical therapy (8) Continuous tobacco abuse: Status: Chronic Assessment and plan: Hold off on nicotine supplement with patient troponin slightly elevated and patient is not asking for nicotine at this time. Long-term goal - patient should stop smoking. (9) DVT prophylaxis: Status: Acute Assessment and plan: Therapeutic enoxaparin with oxygen requirement recommended but patient refuses. teds and scds (10) Discharge planning issues: Status: Acute Assessment and plan: will return to [facility] when stable. discussed with Dr Dowd. Subjective Subjective Patient reports: no new complaints, tolerating liquids well, tolerating a regular diet and afebrile; denies shortness of breath Exam Const General: cooperative, no acute distress, frail appearing and ill appearing chronically Nutritional Appearance: obese Orientation: alert, awake and oriented x3 HENMT Head: normal to inspection, normocephalic and atraumatic Mouth: oral mucosae normal Resp Effort & Inspection: normal respiratory effort Cardio Rate: regular rate Rhythm: regular rhythm GI Inspection: obesity Palpation: soft Auscultation: normal bowel sounds Back/Spine/Pelvis Back: other (left nephrostomy tube intact no drainage on dressing, draining bloody drain) Neuro General: patient alert, patient awake and patient oriented x3 Extrem General: normal to inspection and full ROM Objective Last Vital Signs Temp 36.7 C 03/09/22 11:45 Pulse 69 03/09/22 11:45 Resp 18 03/09/22 11:45 BP 150/74 H 03/09/22 11:45 Pulse Ox 93 03/09/22 11:45 Laboratory Results - last 24 hr 03/09/22 03/09/22 03/09/22 07:30 07:30 07:30 WBC 11.56 H RBC 3.90 L Hgb 10.5 L Hct 32.8 L MCV 84 MCH 26.9 L MCHC 32.0 RDW 17.5 H Plt Count 160 MPV 11.8 H Immature Gran % 0.8 Neutrophils % 83.6 Lymphocytes % 9.6 Monocytes % 5.7 Eosinophils % 0.1 Basophils % 0.2 Nucleated RBC % 0.0 Absolute Neutrophils 9.66 H Absolute Lymphocytes 1.11 L Absolute Monocytes 0.66 Absolute Eosinophils 0.01 Absolute Basophils 0.02 PT INR D-Dimer Sodium 140 Potassium 4.2 Chloride 106 Carbon Dioxide 28.2 Anion Gap 5.8 BUN 29 H Creatinine 0.7 Est GFR (CKD-EPI 2020) 93.15 Glucose 135 H Calcium 9.0 Magnesium 1.8 Ferritin 122 C-Reactive Protein 3.41 H Procalcitonin 1.3 03/09/22 07:30 WBC RBC Hgb Hct MCV MCH MCHC RDW Plt Count MPV Immature Gran % Neutrophils % Lymphocytes % Monocytes % Eosinophils % Basophils % Nucleated RBC % Absolute Neutrophils Absolute Lymphocytes Absolute Monocytes Absolute Eosinophils Absolute Basophils PT 11.1 H INR 1.1 D-Dimer 2700 H Sodium Potassium Chloride Carbon Dioxide Anion Gap BUN Creatinine Est GFR (CKD-EPI 2020) Glucose Calcium Magnesium Ferritin C-Reactive Protein Procalcitonin
[2022-03-09] MEDS: traZODone 100 MG TAB 300 MG PO (22:10)
[2022-03-09] MEDS: Atorvastatin 40 MG TAB PO (22:11)
[2022-03-09] MEDS: Melatonin 3 MG TAB 9 MG PO (22:12)
[2022-03-09] MEDS: Lisinopril 10 MG TAB PO (22:12)
[2022-03-09] MEDS: REMDESIVIR 100 MG in Normal Saline 250 ML 250 MG IVPB (23:07)
[2022-03-10] VITALS (10 sets, daily range): BP systolic 132–155; BP diastolic 60–75; PULSE 62–76; RESP 16–19; TEMP 36.6–36.7; O2SAT 92–96
[2022-03-10] MEDS: Aspirin E.C. 81 MG TABEC PO (08:50)
[2022-03-10] MEDS: Docusate Sodium 100 MG CAP PO (08:50)
[2022-03-10] MEDS: amLODIPine 10 MG TAB 5 MG PO (08:50)
[2022-03-10] MEDS: Dexamethasone 10 MG/ML VIAL IVP (08:50)
[2022-03-10] MEDS: Omeprazole 20 MG CAPCR 40 MG PO (08:51)
[2022-03-10] MEDS: Potassium Chloride 20 MEQ TABCR PO (08:52)
[2022-03-10] MEDS: Tamsulosin 0.4 MG CAPCR PO (08:53)
[2022-03-10] MEDS: cefTRIAXone 2 GM/50 ML BAG IVPB (11:20)
[2022-03-10] MEDS: Normal Saline 500 ML 30 ML IV (11:20)
--- NOTE | 2022-03-10 12:03 | PTTR_ITS ---
PT Notes Visit Reasons: Sepsis Syndrome/UTI, COVID-19 infection, COPD exac Inpatient Physical Therapy Treatment Note [facility] Date: 03/10/22 PRECAUTIONS: COVID+ SUBJECTIVE:Tyler states that he is doing fine. Took some convincing but he was finally agreeable to working with PT today. He does express some concern about his right foot. States that it seems to be loosing color. 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 I am not returning to the custodial....I am going home. OBJECTIVE: [] BED MOBILITY/TRANSFERS Rolling L/R: I Supine-sit: SBA Sit-supine: CGA Bed-Chair:SBA Chair-bed: SBA THEREX: performed LAQ while seated. He also performed AP, and SLR and SL bridge. ASSESSMENT: tolerated session well. No c/o pain or fatigue. Began coughing with activity but denied SOB. He was able to wash himself independently. Did note small edema in right LE. Encouraged him to elevate it, but he declined. PLAN: will continue to progress his strength and functional mobility to tolerance. TREATMENT CODE/TIME:30 min [id number], [id number]
--- NOTE | 2022-03-10 16:00 | W.PM.PROGNOT ---
Date of Service Date of service: 03/10/22 Time of Service: 16:01 Assessment and Plan Assessment and plan (1) Sepsis: Status: Acute Assessment and plan: Ceftriaxone day 5 Blood cx and urine culture - ; klebsiella pneumoniae in setting of left ureteral stone blood cultures negative as of 03/07 (2) Left ureteral stone: Status: Acute Assessment and plan: in setting of UTI and bacteremia. nephrotomy tube placed at [facility] 03/08 awaiting urology consult for Friday (3) Pneumonia due to COVID-19 virus: Status: Acute Assessment and plan: continue Remdesivir and dexamethasone patient is declining multivitamins and lovenox ordered for covid. no oxygen requirements (4) Acute UTI: Status: Acute Assessment and plan: growing Kleb pneumo like in the blood. Kidney US - 03/04/22 1. Examination limited by patient body habitus and mobility. 2. Bilateral renal cysts.? No follow-up is recommended. 3. No evidence of hydronephrosis.? 4. Inadequate filling of the urinary bladder.? There was thickening of the urinary bladder wall.? This may be due to incomplete distension but cystitis, neurogenic bladder or chronic bladder outlet obstruction should be considered. 5. Prostatomegaly. Renal CT - 03/07/22 1. 3 mm left UPJ stone causing mild hydronephrosis. 2. Bilateral nephrolithiasis. 3. 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 4. Small bilateral pleural effusions and subjacent infiltrates which may represent atelectasis or pneumonia.? left nephrotomy tube placed at [facility] (5) Acute exacerbation of chronic obstructive pulmonary disease (COPD): Status: Resolved Assessment and plan: improving with treatment (6) Elevated troponin: Status: Acute Assessment and plan: peaked at 91 which was on admission, now normalized. consider outpatient cardiology (7) Weak: Status: Acute Assessment and plan: physical therapy (8) Continuous tobacco abuse: Status: Chronic Assessment and plan: Hold off on nicotine supplement with patient troponin slightly elevated and patient is not asking for nicotine at this time. Long-term goal - patient should stop smoking. (9) DVT prophylaxis: Status: Acute Assessment and plan: Therapeutic enoxaparin restarted. teds and scds (10) Discharge planning issues: Status: Acute Assessment and plan: will return to home with services once medically stable. discussed with Dr Mehta. Subjective Subjective Patient reports: no new complaints, feels better, tolerating liquids well, tolerating a regular diet and afebrile; denies shortness of breath Exam Const General: cooperative, no acute distress, frail appearing and ill appearing chronically Nutritional Appearance: obese Orientation: alert, awake and oriented x3 HENMT Head: normal to inspection, normocephalic and atraumatic Mouth: oral mucosae normal Resp Effort & Inspection: normal respiratory effort Cardio Rate: regular rate Rhythm: regular rhythm GI Inspection: obesity Palpation: soft Auscultation: normal bowel sounds Back/Spine/Pelvis Back: other (left nephrostomy tube intact no drainage on dressing, draining bloody drain) Neuro General: patient alert, patient awake and patient oriented x3 Extrem General: normal to inspection and full ROM Objective Last Vital Signs Temp 36.7 C 03/10/22 15:20 Pulse 71 03/10/22 15:20 Resp 18 03/10/22 15:20 BP 132/72 03/10/22 15:20 Pulse Ox 92 03/10/22 15:20
[2022-03-10] MEDS: REMDESIVIR 100 MG in Normal Saline 250 ML 250 MG IVPB (21:21)
[2022-03-10] MEDS: Normal Saline Flush 10 ML SYR IVP (21:21)
[2022-03-10] MEDS: Atorvastatin 40 MG TAB PO (22:32)
[2022-03-10] MEDS: Lisinopril 10 MG TAB PO (22:32)
[2022-03-10] MEDS: traZODone 100 MG TAB 300 MG PO (22:32)
[2022-03-10] MEDS: Enoxaparin 100 MG/ML SYR 90 MG SC (22:34)
[2022-03-10] MEDS: Melatonin 3 MG TAB 9 MG PO (22:34)
[2022-03-11] VITALS (9 sets, daily range): BP systolic 128–146; BP diastolic 63–75; PULSE 59–75; RESP 12–20; TEMP 36.2–37.1; O2SAT 91–96
[2022-03-11] MEDS: Aspirin E.C. 81 MG TABEC PO (09:36)
[2022-03-11] MEDS: Dexamethasone 4 MG TAB 6 MG PO (09:37)
[2022-03-11] MEDS: Enoxaparin 100 MG/ML SYR 90 MG SC (09:38)
[2022-03-11] MEDS: Furosemide 20 MG TAB PO (09:38)
[2022-03-11] MEDS: Omeprazole 20 MG CAPCR 40 MG PO (09:39)
[2022-03-11] MEDS: Tamsulosin 0.4 MG CAPCR PO (09:40)
[2022-03-11] MEDS: amLODIPine 10 MG TAB 5 MG PO (09:40)
[2022-03-11] MEDS: cefTRIAXone 2 GM/50 ML BAG IVPB (09:40)
--- NOTE | 2022-03-11 10:01 | CMPROGNOTE_ITS ---
- If Service Date Differs Date of service: 03/11/22 Time of Service: 10:01 Care Management Progress Note S/O: Tyler requires further medical workup and treatment. A Urology consult is planned for today, he had a nephrotomy tube placed at [facility] 03/08/22. Tyler is working with PT and continues to refuse SNF for STR. Anticipate, pt will return home with Resumption of [facility] RN/PT/OT, once medically stable, CM will follow. A: 82 year old male admitted to [facility] on 03/03/22 Sepsis, UTI, Pneumonia due to COVID-19 virus, acute COPD Exacerbation P: Tyler refuses SNF for STR. [facility] otherwise he insists on discharging home with Resumption of [facility] RN/PT/OT, when he is medically ready. He will transport via [facility] W[facility]C van and follow up with community providers. He will need close community follow up with the [facility], including an outpatient prosthetic consult through [place].
--- NOTE | 2022-03-11 10:01 | PDOC.CMPRO ---
- If Service Date Differs Date of service: 03/11/22 Time of Service: 10:01 Care Management Progress Note S/O: Tyler requires further medical workup and treatment. A Urology consult is planned for today, he had a nephrotomy [facility] [place] [facility] 03[place]. Tyler is working with PT and continues to refuse SNF for STR. Anticipate, pt will return home with Resumption of [facility] RN/PT/OT, once medically stable, CM will follow. A: 82 year old male admitted to [facility] on 03/03/22 Sepsis, UTI, Pneumonia due to COVID-19 virus, acute COPD Exacerbation P: Tyler refuses SNF for STR. He would consider discharge to the [facility], if needed otherwise he insists on discharging home with Resumption of [facility] RN/PT/OT, when he is medically ready. He will transport via [facility] W/C van and follow up with community providers. He will need close community follow up with the VA, including an outpatient prosthetic consult through [facility].
--- NOTE | 2022-03-11 12:24 | W.PM.PROGNOT ---
Date of Service Date of service: 03/11/22 Time of Service: 12:15 Assessment and Plan Assessment and plan (1) Sepsis: Status: Acute Assessment and plan: Paatient has stable vital signs is afebrile, no oxygen requirement.We will complete blood work for the morning as patient is agreeable to this. Ceftriaxone day 5 course completed on 03/11 Blood cx and urine culture - ; klebsiella pneumoniae from specimen of 03/03 in setting of left ureteral stone blood cultures negative as of 03/07 CBC in the morning to verify leukocytosis BMP to verify renal function and magnesium as it was 1.8 on 03/09 (2) Left ureteral stone: Status: Acute Assessment and plan: UTI and bacteremia with Klebsiella from specimen collected on 03/03; as above. nephrostomy tube placed at [facility] 03/08 Urology consult completed today be Dr. Resendiz: ? ? ? Assessment and plan: With the placement of his nephrostomy tube and his culture specific antibiotics, there is nothing else that needs to be done urgently.? Ultimately, he will need a cystoscopy, retrograde pyelogram, ureteroscopy and possible holmium laser lithotripsy of his stone.? Theoretically, an antegrade ureteroscopy could be done through his nephrostomy tract. Any of these procedures would require a general anesthetic.? With his current COVID status and his pneumonia, he would not be an elective surgical/anesthesia candidate until he is symptom-free for at least 2 weeks.? He has a significant history of vascular disease and has multiple cardiac risk factors.? He never seen cardiology at our facility.? He would certainly not be an anesthesia candidate at our facility until he has a full cardiac work-up. His primary insurance and his primary medical [facility] [place].? In fact, when I access his problem list on the [facility] EMR, it looks like he has had a prolonged hospitalization at the [facility] earlier this year, has had surgical treatments at the [facility] in the past year and has a planned visit with vascular surgery in April 2022.? It may be a better idea (both from a financial and a continuity of care point of view) for him to have any future urologic intervention at the [facility].? My office will check to see if any elective procedure would be authorized at a non-VA facility.? If [facility] urology is required, no acute transfer should be required, but an outpatient referral would be appropriate. (3) Pneumonia due to COVID-19 virus: Status: Acute Assessment and plan: We will continue Remdesivir and dexamethasone, multivitamins and lovenox ordered for COVID-19 no oxygen requirements, but has refused to complete the Vibrapep. (4) Acute UTI: Status: Acute Assessment and plan: growing Kleb pneumo like in the blood. Kidney US - 03/04/22 1. Examination limited by patient body habitus and mobility. 2. Bilateral renal cysts.? No follow-up is recommended. 3. No evidence of hydronephrosis.? 4. Inadequate filling of the urinary bladder.? There was thickening of the urinary bladder wall.? This may be due to incomplete distension but cystitis, neurogenic bladder or chronic bladder outlet obstruction should be considered. 5. Prostatomegaly. Renal CT - 03/07/22 1. 3 mm left UPJ stone causing mild hydronephrosis. 2. Bilateral nephrolithiasis. 3. 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 4. Small bilateral pleural effusions and subjacent infiltrates which may represent atelectasis or pneumonia.? left nephrotomy tube placed at [facility] Patient was treated with Ceftriaxone for over 5 days.He was also seen by urology today. (5) Acute exacerbation of chronic obstructive pulmonary disease (COPD): Status: Resolved Assessment and plan: improving with treatment (6) Elevated troponin: Status: Acute Assessment and plan: peaked at 91 which was on admission, now normalized. consider outpatient cardiology (7) Weak: Status: Acute Assessment and plan: physical therapy has been refused on multiple occasion. (8) Continuous tobacco abuse: Status: Chronic Assessment and plan: Nicotine was on hold due to slight elevation of troponin slightly and patient is not asking for nicotine at this time. Long-term goal - patient should stop smoking. (9) DVT prophylaxis: Status: Acute Assessment and plan: Therapeutic enoxaparin ordered in the context of COVID-19 infection (10) Discharge planning issues: Status: Acute Assessment and plan: will return to home with services once medically stable. discussed with Dr Mehta. Subjective Subjective Patient reports: no new complaints (patient reports 3 episodes of liquid stools today, he is refusing for the light ot be turned on in the room during physical exam and interview. He refuses to practiceIS and vibrapep. He denies, pain, nausea, vomiting; he is refusing his meal at lunch time.) and feels better Interval history since last seen: 24 hours Exam Narrative Exam Narrative: Neuro: Patient is alert and oriented, his mood is labile. He has not neurological focal deficit. Cardiac: S1, S2 distant, skin is warm, pink, no overt dryness noticed Resp: He speaks in full sentences, cough is wet and non-productive. Breath sounds are coarse to posterior lung stafford up to mid back. Anterior upper lung stafford are clear. GI: Abdomen is large, semi-firm,non-tender, bowel sounds are present : Nephrostomy tube to left CV angle, draining pale clear urine Objective Last Vital Signs Temp 97.2 F L 03/11/22 11:27 Pulse 67 03/11/22 11:27 Resp 12 03/11/22 11:27 BP 128/65 03/11/22 11:27 Pulse Ox 92 03/11/22 11:27
--- NOTE | 2022-03-11 14:14 | W.UROLOGYCON ---
Date of service: 03/11/22 Time of Service: 15:29 Assessment and Plan Assessment and plan (1) Left ureteral stone: Status: Acute Assessment and plan: With the placement of his nephrostomy tube and his culture specific antibiotics, there is nothing else that needs to be done urgently. Ultimately, he will need a cystoscopy, retrograde pyelogram, ureteroscopy and possible holmium laser lithotripsy of his stone. Theoretically, an antegrade ureteroscopy could be done through his nephrostomy tract. Any of these procedures would require a general anesthetic. With his current COVID status and his pneumonia, he would not be an elective surgical/anesthesia candidate until he is symptom-free for at least 2 weeks. He has a significant history of vascular disease and has multiple cardiac risk factors. He never seen cardiology at our facility. He would certainly not be an anesthesia candidate at our facility until he has a full cardiac work-up. His primary insurance and his primary medical care has been provided through the [place] in [place]. In fact, when I access his problem list on the [facility] [place], it looks like he has had a prolonged hospitalization at the [place] earlier this year, [facility] and has a planned visit with vascular surgery in April 2022. It may be a better idea (both from a financial and a continuity of care point of view) for him to have any future urologic intervention at the [place]. My office will check to see if any elective procedure would be authorized at a non-VA facility. If [facility] urology is required, no acute transfer should be required, but an outpatient referral would be appropriate. History of Present Illness History of Present Illness Chief Complaint: Left ureteral stone Narrative: This is an 82-year-old gentleman who was admitted to the hospital on 03/03/2022 with sepsis. He tested positive for COVID but he also had evidence of a urinary tract infection. A renal US did not demonstrate any hydronephrosis. He was treated with broad-spectrum antibiotics. His blood and his urine cultures ultimately both grew Klebsiella. He then had a CT scan that demonstrated a proximal ureteral stone with hydronephrosis on the left. A nephrostomy tube has since been placed by the interventional radiology team at [facility]. He is currently on ceftriaxone. He is not currently having any flank pain. He does not recall a previous diagnosis of kidney stones however, stones have been identified on some of his previous CT scans. He is not required any type of surgical treatment for stone disease. Review of Systems Narrative: No vision change or dysphasia No diabetes or thyroid dysfunction COPD with shortness of breath and cough. No hemoptysis No chest pain or palpitations No nausea, vomiting, hepatitis, ulcers, jaundice No seizures, strokes or peripheral neuropathy No bleeding disorders No gout PFSH All Active Problems (Updated 03/10/22 @ 16:02 by Mikayla Weston NP) Left ureteral stone (Acute) Weak (Acute) Discharge planning issues (Acute) DVT prophylaxis (Acute) Elevated troponin (Acute) Continuous tobacco abuse (Chronic) Sepsis (Acute) Acute UTI (Acute) Pneumonia due to COVID-19 virus (Acute) Bandemia (Acute) Orthostatic hypotension (Acute) B12 deficiency anemia (Acute) Anemia (Chronic) Osteomyelitis of left foot (Acute) DNR (do not resuscitate) (Acute) Health insurance with [employer] (Acute) Pneumonia (Acute) Wernicke encephalopathy (Acute) Insomnia (Acute) Intention tremor (Chronic) COPD exacerbation (Acute) Hypertension (Chronic) Pain (Acute) Syncope (Acute) Fracture of rib of left side (Chronic) Laceration of right thumb (Acute) Thoracic vertebral fracture (Acute) Peripheral neuropathy (Chronic) Peripheral vertigo of both ears (Acute) Stenosis of right internal carotid artery (Acute) Dizziness (Acute) Chest pain (Acute) Alcohol abuse (Chronic) Community acquired pneumonia (Acute) COPD (chronic obstructive pulmonary disease) (Chronic) Hyponatremia (Chronic) Pancytopenia (Acute) Medical History Alcohol abuse GERD (gastroesophageal reflux disease) HTN (hypertension) Hx of hyperlipidemia Orthostatic hypotension Stenosis of both internal carotid arteries Vertigo Surgical History Fracture of right hip pinning Hx of cholecystectomy Social History Smoking/Tobacco Use Status: Current every day Tobacco Type: cigars Smoking risk assessment performed?: Yes Alcohol Intake: former Drug use: Never Substance use type: does not use Do you feel safe at home: Yes Do you feel safe in your relationship?: Yes Additional Social history: Lives in his own apartment, [address] in [place] Exam Narrative Exam Narrative: I reviewed his noncontrast CT scan from 03/07/2022. He had an obstructing left proximal ureteral stone at that time. He also has extensive arterial calcifications. I see what appears to be an inflatable penile prosthesis in place. I reviewed his [facility] records and imaging. The nephrostomy tube provides adequate draining for his obstructed collecting system Const General: cooperative and comfortable GI Inspection: normal to inspection Palpation: soft and no masses Other: nephrostomy tube with clear urine Neuro General: patient alert, patient awake and patient oriented x3 Results Last Vital Signs Temp 36.2 C L 03/11/22 11:27 Pulse 67 03/11/22 11:27 Resp 12 03/11/22 11:27 BP 128/65 03/11/22 11:27 Pulse Ox 92 03/11/22 11:27 Labs Result diagrams: 03/09/22 07:30 03/09/22 07:30
--- NOTE | 2022-03-11 15:56 | NT_ITS ---
Date of service: 03/11/22 Time of Service: 15:56 PT Notes Visit Reasons: Sepsis Syndrome/UTI, COVID-19 infection, COPD exac 03/11/2022 Patient states that he is not getting up today. He reports that he has been moving around in his bed and that he has gotten out of bed several times al ready. He states that he has wounds from his leather cushion on his home wheelchair. Will attempt to resume PT services tomorrow morning.
[2022-03-11 18:10] LABS: Mycoplasma Pneumoniae PCR Negative; Specimen source Sputum
[2022-03-11] MEDS: Lisinopril 10 MG TAB PO (21:01)
[2022-03-11] MEDS: Atorvastatin 40 MG TAB PO (23:06)
[2022-03-11] MEDS: REMDESIVIR 100 MG in Normal Saline 250 ML 250 MG IVPB (23:06)
[2022-03-11] MEDS: traZODone 100 MG TAB 300 MG PO (23:06)
[2022-03-11] MEDS: Melatonin 3 MG TAB 9 MG PO (23:06)
[2022-03-12 03:05] VITALS: BP 128/70; PULSE 78; RESP 18; TEMP 36.8; O2SAT 94
[2022-03-12 06:34] VITALS: BP 127/64; PULSE 59; RESP 20; TEMP 36.1; O2SAT 96
[2022-03-12 07:23] LABS: Abs Immature Grans 0.11 10^3/uL (0.0-0.06); Absolute Basophil Count 0.01 10^3/uL (0.0-0.2); Absolute Eosinophil Count 0.01 10^3/uL (0.0-0.7); Absolute Lymphocyte Count 1.11 10^3/uL (1.2-3.4); Absolute Monocyte Count 0.67 10^3/uL (0.1-0.8); Basophils % 0.1; Eosinophils % 0.1; HCT 33.6 % (40.0-50.0); HGB 10.8 g/dL (13.5-17.5); Immature Grans % 1.3; Lymphocytes % 12.7; MCHC 32.1 % (32.0-36.0); MCV 84 fL (80-95); MPV 11.9 fL (8.0-11.0); Monocytes % 7.7; Neutrophils % 78.1; Platelet Count 221 10^3/uL (130-400); RDW 17.1 % (11.8-14.1); RDW-SD 52.6 fL; WBC 8.71 10^3/uL (4.4-10.8)
[2022-03-12 07:40] LABS: Anion Gap 6.1 mmol/L (3-11); BUN 23 mg/dL (7-18); CO2 28.9 mmol/L (21.0-32.0); CREATININE 0.7 mg/dL (0.70-1.30); Calcium 8.3 mg/dL (8.5-10.1); Chloride 104 mmol/L (98-107); Estimated GFR 93.15 (mL/min/1.73m2); Glucose 125 mg/dL (74-106); Magnesium 1.8 mg/dL (1.8-2.4); Potassium 3.9 mmol/L (3.5-5.1); Sodium 139 mmol/L (136-145)
[2022-03-12] MEDS: Tiotropium Bromide-Respimat 10 PUFF INH 2 PUFF IH (08:05)
[2022-03-12] MEDS: amLODIPine 10 MG TAB 5 MG PO (08:43)
[2022-03-12] MEDS: Aspirin E.C. 81 MG TABEC PO (08:44)
[2022-03-12] MEDS: Dexamethasone 4 MG TAB 6 MG PO (08:44)
[2022-03-12] MEDS: Furosemide 20 MG TAB PO (08:45)
[2022-03-12] MEDS: Enoxaparin 100 MG/ML SYR 90 MG SC (08:45)
[2022-03-12] MEDS: Omeprazole 20 MG CAPCR 40 MG PO (08:46)
[2022-03-12] MEDS: Normal Saline Flush 10 ML SYR IVP (08:47)
[2022-03-12] MEDS: Potassium Chloride 20 MEQ TABCR PO (08:47)
[2022-03-12] MEDS: Tamsulosin 0.4 MG CAPCR PO (08:47)
--- NOTE | 2022-03-12 09:21 | CMPROGNOTE_ITS ---
- If Service Date Differs Date of service: 03/12/22 Time of Service: 09:21 Care Management Progress Note S/O: CM spoke with Tyler via phone, as he is still on covid isolation. Tyler easily engages in conversation and is looking forward to discharging home when medically ready. Tyler has been agreeable to work with PT, except for yesterday he deferred his therapy session. Tyler continues to refuse SNF for STR. Dr. Resendiz consulted patient and is [facility]. Anticipate, pt will return home with [facility] RN/PT/OT, once medically stable, CM will follow. A: 82 year old male admitted to [facility] on 03/03/22 Sepsis, UTI, Pneumonia due to COVID-19 virus, acute COPD Exacerbation P: Tyler refuses SNF for STR. [facility] would [facility], if needed otherwise he insists on discharging home with [facility] of [facility] RN/PT/OT, when he is medically ready. He will transport via [facility] W[facility]C van and follow up with community providers. He will need close community follow up with the [facility], including an outpatient prosthetic consult through [facility].
--- NOTE | 2022-03-12 10:55 | PT.INNT ---
Date of service: 03/12/22 Time of Service: 10:55 PT Notes Visit Reasons: Sepsis Syndrome/UTI, COVID-19 infection, COPD exac Patient declines today's treatment stating that he gil sbeen trying to get sleep as he has not gotten any the previous night. Patient agrees to PT checking in again this afternoon to see if he is able to participate.
--- NOTE | 2022-03-12 12:24 | W.PM.PROGNOT ---
Date of Service Date of service: 03/12/22 Time of Service: 12:24 Assessment and Plan Assessment and plan (1) Left ureteral stone: Status: Acute Assessment and plan: We contacted the [facility] and submitted the requested paperwork to see if his ureteroscopy might be done closer to home or if he would need to see the urology service down in [place]. I am not sure how long any decision would take, but at this point, he is not an anesthesia candidate until he has no COVID symptoms whatsoever for minimum of 2 weeks. Once he is stable from a medical standpoint, I have no objection to his being discharged on antibiotics. My office can contact the patient once any decision has been made by the [place] insurance regarding the location of his next elective procedure. Subjective Subjective Interval history since last seen: He remains comfortable with no flank pain. Exam Narrative Exam Narrative: He does not appear septic or toxic His vital signs are documented elsewhere The urine from his left nephrostomy tube is clear There is an inflatable penile prosthesis in situ He is awake and alert Objective Last Vital Signs Temp 36.1 C L 03/12/22 06:34 Pulse 59 L 03/12/22 06:34 Resp 20 03/12/22 06:34 BP 127/64 03/12/22 06:34 Pulse Ox 96 03/12/22 06:34 Laboratory Results - last 24 hr 03/07/22 03/12/22 03/12/22 18:30 06:50 06:50 WBC 8.71 RBC 4.00 L Hgb 10.8 L Hct 33.6 L MCV 84 MCH 27.0 MCHC 32.1 RDW 17.1 H Plt Count 221 MPV 11.9 H Immature Gran % 1.3 Neutrophils % 78.1 Lymphocytes % 12.7 Monocytes % 7.7 Eosinophils % 0.1 Basophils % 0.1 Nucleated RBC % 0.0 Absolute Neutrophils 6.80 H Absolute Lymphocytes 1.11 L Absolute Monocytes 0.67 Absolute Eosinophils 0.01 Absolute Basophils 0.01 Sodium 139 Potassium 3.9 Chloride 104 Carbon Dioxide 28.9 Anion Gap 6.1 BUN 23 H Creatinine 0.7 Est GFR (CKD-EPI 2020) 93.15 Glucose 125 H Calcium 8.3 L Magnesium 1.8 M. pneumoniae Source Sputum M. pneumoniae (PCR) Negative
--- NOTE | 2022-03-12 12:46 | PDOC.CMDIS ---
- If Service Date Differs Date of service: 03/12/22 Time of Service: 12:46 LACE Index Scoring Tool - Questions: Length of Stay (in days): 7 - 13 Acuity (Admit via E.D.?): Yes E.D. Visits: 4 - Answers: Total Score: 12 Risk of Readmission: High Risk Care Management Discharge Reason for Hospitalization: Sepsis, UTI, Pneumonia due to COVID-19 virus, acute COPD Exacerbation Discharge Plan: Tyler is discharged home via EMS. Tyler will follow up with VA providers and discharge plan of care as prescribed. [facility] of [facility] RN/PT/OT services, add UNDERGROUND SUPERVISOR. Patient/Family Education Needs: Review discharge instructions, limitations, medications and plan to follow up with community providers. Review ask me three and goals of self care. Services Needed at Discharge: Home Health Care Services ([facility] RN, PT, OT add UNDERGROUND SUPERVISOR. CM notified [facility].), Transportation ([place], coordinated by [facility])
[2022-03-12 12:55] VITALS: BP 135/69; PULSE 62; RESP 21; TEMP 36.7; O2SAT 92
[2022-03-12 14:20] VITALS: BP 130/61; PULSE 65; RESP 20; TEMP 36.8; O2SAT 95
--- NOTE | 2022-03-12 15:28 | W.PM.DS.N ---
Date of service: 03/12/22 Time of Service: 15:29 DS: Diagnosis Discharge Diagnosis (1) Left ureteral stone: Status: Acute Discharge Plan Disposition Patient Disposition: Home Condition: Improving Discharge Details Reason For Visit: Sepsis Syndrome/UTI, COVID-19 infection, COPD exac Admit Date/Time: 03/04/22 03:16 Admit Provider: Tyler Earl Attending Provider: Tyler Earl Primary Care Provider: Brad Morrow Hospital Course Hospital Course: This is an 82-year-old male [facility] patient with a history of Wernicke encephalopathy,left BKA, hypertension,COPD, COVID-19 in january and bilat carotid artery stenosis who presented to the ED on 03/04/2022 with 24 to 48 hours of fever, weakness not be able to get up and cough.? He appeared septic with a markedly elevated WBC, tachycardia and slightly altered mental status which improved with IV antibiotic therapy for a presumed UTI.? He was initiated on broad-spectrum IV antibiotic therapy with ED physician thinking the patient had patchy infiltrates with clinical exam consistent with this and suspicious of COVID-19 pneumonia with positive COVID-19 test but also possible bacterial pneumonia with elevated markers.? Procalcitonin was elevated.? Patient also had a possible UTI as a source of infection.?He did improve with IV antibiotic therapy and because of elevated BNP had slow fluid resuscitation which was continued.? His creatinine was increased from baseline and he had lactic acidosis. The [place] as well as [facility] were consulted for admission but they declined him. He was initiated on broad-spectrum IV antibiotics with Zosyn, vancomycin and doxycycline then narrowed down to ceftriaxone due to his positive blood and urine cultures for Klebsiella pneumoniae. Renal ultrasound and CT of the abdomen and pelvis were ordered on 03/05/22 to further investigate his UTI. Results: There are bilateral renal cysts.? The largest on the right measures 3.2 x 2.3 x 2.3 cm.? The largest on the left measures 4.2 x 3.4 x 3.2 cm.? These are stable compared to the CT scan from 07/07/2021.? Nephrolithiasis: No stones are seen sonographically.? The CT scan from 07/07/2021 does show bilateral nephrolithiasis.? The bladder wall does appear thickened at almost 1 cm.? This does correlate with the findings on the CT scan however which showed thickened urinary bladder wall.? 1. 3 mm left UPJ stone causing mild hydronephrosis. 2. Bilateral nephrolithiasis. 3. 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 4. Small bilateral pleural effusions and subjacent infiltrates which may represent atelectasis or pneumonia.? Nephrostomy tube place at [facility] on 03/09 Echocardiogram completed on 03/06 reports an LVEF of 63% by Howe's biplane, aortic stenosis, LV systolic fxn nl; No wall motion abnormalities, RV systolic fxn nl; sig pulmonary htn RV systolic pressure 55 mmhg; mild mitral regurg; mild to moderate tricuspid regurg He was evaluated by Dr Resendiz, urology. Patient will need a cystoscopy, retrograde pyelogram, ureteroscopy and possible holmium laser lithotripsy of his stone.?He has a significant history of vascular disease and has multiple cardiac risk factors.? [facility] [place].? He is being discharged to home with 5 days of Prednisone and 10 days of Cefpodoxime. He will follow up with PCP and urology. [facility] NURSING, PT, OT, DIRECTOR [employer]ORATORY Home Meds and New Rx's Prescriptions: Continued nitroglycerin [Nitrostat] 0.4 mg tablet, sublingual 0.4 mg Sublingual Q5M PRN Patient Comments: doesn't have chest pain Rx Instructions: for chest pain amlodipine 10 MG tablet 5 mg PO DAILY omeprazole 20 MG capsule,delayed release(DR/EC) 40 mg PO DAILY AM Patient Comments: Pt. states that he doesn't take this medication. albuterol sulfate 90 mcg/actuation HFA aerosol inhaler 2 puff INHALATION Q6H PRN aspirin 81 mg Tablet,Delayed Release (Dr/Ec) 81 mg PO DAILY atorvastatin 40 mg Tablet 40 mg PO HS calcium carbonate-vitamin D3 [Calcium 500 + D] 500 mg-5 mcg (200 unit) Tablet 2 tab PO DAILY tiotropium bromide 2.5 mcg/actuation Mist 2 puff INHALATION DAILY trazodone 100 mg Tablet 300 mg PO HS tamsulosin 0.4 mg capsule 0.4 mg PO DAILY AM furosemide 20 mg Tablet 20 mg PO DAILY Qty: 0 0RF No Action magnesium 250 mg tablet 250 mg PO DAILY Qty: 10 0RF lidocaine [Lidoderm] 5 % adhesive patch,medicated 1 patch TP DAILY PRN (Reason: pain) Qty: 15 0RF Rx Instructions: leave on most painful area for up to 12 hrs potassium chloride 20 mEq tablet extended release 10 meq PO DAILY Discharge Instructions Instructions: Prednisone (By mouth), Cefpodoxime Proxetil (By mouth), Kidney Stones (DC), Urinary Tract Infection in Men (ED), How to Strain Your Urine (ED), Nephrostomy Tube Insertion (DC) Additional Instructions: Continue prednisone for 5 days. Take antibiotic (Cefpodoxime) for 2 weeks. Tylenol for pain. Follow up with PCP and urology. Continue home medications. Stand Alone Forms: Nursing Discharge Form Referrals: Brad Morrow [Primary Care Provider] - (Please call tomorrow to make a follow up appointment for 1-2 weeks) Activity:: Activity as Tolerated Equipment/Supplies:: Walker Diet:: As Tolerated Discharge Orders Discharge Orders: Discharge Order (Routine); Ordered 03/12/22 Ordered By: Bhavya Benitez Discharge Data Discharge Date/Time-TO BE ENTERED AT DEPARTURE: 03/12/22 18:12 DS: Summary Time Spent with Patient providing and/or coordinating discharge services: Greater than 30 minutes Status at Discharge Functional status at discharge: uses cane/walker Overall status at discharge: patient is back to baseline Mental Status: mental status grossly normal Speech and Movement: speech and movement normal Mood: anxious mood Affect: labile affect Exam Narrative Exam Narrative: Neuro: Patient is alert and oriented, his mood is labile. He has not neurological focal deficit. Cardiac: S1, S2 distant, skin is warm, pink, no overt dryness noticed Resp: He speaks in full sentences, cough is wet and non-productive. Breath sounds are coarse to posterior lung stafford up to mid back. Anterior upper lung stafford are clear. GI: Abdomen is large, semi-firm,non-tender, bowel sounds are present : Nephrostomy tube to left CV angle, draining pale clear urine Const General: comfortable and no acute distress HENIL Head: normal to inspection, normocephalic and atraumatic Eyes General: appearance normal, both eyes and all related structures Neck Neck: normal visual inspection and full ROM Resp Effort & Inspection: able to speak in complete sentences, no audible wheezes and not labored Auscultation: rales bilaterally (velcro like crackles, no oxygen needed) at the base Cardio Rhythm: regular rhythm Heart Sounds: S1 normal and S2 normal GI Inspection: obesity Palpation: soft and nontender Auscultation: normal bowel sounds Other: Nephrostomy tube in palce to left flank, also voiding clear yellow urine Neuro General: patient alert and patient oriented x3 Cognition: normal cognition Speech: speech normal Extrem Right upper extremity: normal to inspection and full ROM Left upper extremity: normal to inspection and full ROM Right lower extremity: normal to inspection, full ROM and normal capillary refill; no edema Left lower extremity: knee (left BKA) Psych Appearance: disheveled Mental Status: mental status grossly normal Speech and Movement: speech and movement normal Mood: anxious mood Affect: labile affect Thought Process: circumstantial Thought Content: normal DS: Data Vitals/I&O Vitals and I&O: Vital Signs Temperature 98.2 F 03/12/22 14:20 Temperature Source Tympanic 03/12/22 14:20 Pulse 65 03/12/22 14:20 Pulse Rhythm Regular 03/12/22 09:06 Pulse 83 03/04/22 03:50 Respiratory Rate 20 03/12/22 14:20 Respiratory Effort 03/12/22 09:06 Respiratory Depth Normal 03/12/22 09:06 Respiratory Pattern Normal 03/12/22 09:06 Blood Pressure 130/61 03/12/22 14:20 Blood Pressure Mean 100 03/04/22 03:45 Blood Pressure Position Sitting 03/03/22 20:09 Pulse Oximetry 95 03/12/22 14:20 Oxygen Delivery Method Room Air 03/12/22 14:20 Oxygen Flow Rate 0 03/12/22 14:20 Pain Level 0 03/12/22 14:20 Comment 03/08/22 16:16 Intake & Output 03/11/22 03/12/22 03/12/22 23:59 11:59 23:59 Intake Total 372.5 / 662.5 87.5 / 87.5 Output Total 1250 / 2275 200 / 200 Balance -877.5 / -1612.5 87.5 / -112.5 -200 / -112.5 Weight 200 lb 6.403 oz Intake: IV 172.5 / 222.5 87.5 / 87.5 Oral 200 / 440 Output: Drainage 300 / 300 LEFT FLANK 300 / 300 Urine 950 / 1975 200 / 200 Other: Urine Color Yellow Yellow Urine Appearance Clear Clear Clear Urine Odor None Stool Size Large Stool Characteristics Soft Voiding Methods Urinal Urinal Data Completed and Pending Labs on day of discharge: Labs from last 24 hours 03/12/22 03/12/22 03/07/22 06:50 06:50 18:30 WBC 8.71 RBC 4.00 L Hgb 10.8 L Hct 33.6 L MCV 84 MCH 27.0 MCHC 32.1 RDW 17.1 H Plt Count 221 MPV 11.9 H Immature Gran % 1.3 Neutrophils % 78.1 Lymphocytes % 12.7 Monocytes % 7.7 Eosinophils % 0.1 Basophils % 0.1 Nucleated RBC % 0.0 Absolute Neutrophils 6.80 H Absolute Lymphocytes 1.11 L Absolute Monocytes 0.67 Absolute Eosinophils 0.01 Absolute Basophils 0.01 Sodium 139 Potassium 3.9 Chloride 104 Carbon Dioxide 28.9 Anion Gap 6.1 BUN 23 H Creatinine 0.7 Est GFR (CKD-EPI 2020) 93.15 Glucose 125 H Calcium 8.3 L Magnesium 1.8 M. pneumoniae Source Sputum M. pneumoniae (PCR) Negative Preliminary micro results at discharge 03/07/22 15:30 Blood Culture - Preliminary Blood NO GROWTH 96 HOURS 03/07/22 15:24 Blood Culture - Preliminary Blood NO GROWTH 96 HOURS PFSH All Active Problems (Updated 06/17/22 @ 23:56 by Rosario Almendarez DO) Prostatitis (Acute) Anorexia (Acute) Acute urinary retention (Acute) Chest pain (Acute) UTI (urinary tract infection) (Acute) Lower urinary tract symptoms (LUTS) (Acute) Community acquired pneumonia (Acute) COPD (chronic obstructive pulmonary disease) (Chronic) Hyponatremia (Chronic) Pancytopenia (Acute) Chest pain (Acute) Alcohol abuse (Chronic) Dizziness (Acute) Stenosis of right internal carotid artery (Acute) Peripheral vertigo of both ears (Acute) Orthostatic hypotension (Acute) Peripheral neuropathy (Chronic) Thoracic vertebral fracture (Acute) Laceration of right thumb (Acute) Fracture of rib of left side (Chronic) Syncope (Acute) Pain (Acute) Hypertension (Chronic) COPD exacerbation (Acute) Intention tremor (Chronic) Insomnia (Acute) Wernicke encephalopathy (Acute) Pneumonia (Acute) Health insurance with [employer] (Acute) DNR (do not resuscitate) (Acute) Osteomyelitis of left foot (Acute) Anemia (Chronic) B12 deficiency anemia (Acute) Sepsis (Acute) Acute UTI (Acute) Continuous tobacco abuse (Chronic) Weak (Acute) Left ureteral stone (Acute) Medical History Alcohol abuse Per pt. 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, transfers independently Fracture of right hip pinning History of penile implant Hx of cholecystectomy Social History Smoking/Tobacco Use Status: Current every day Tobacco Type: cigars Smoking risk assessment performed?: Yes Alcohol Intake: former Drug use: Never Substance use type: does not use Do you feel safe at home: Yes Do you feel safe in your relationship?: Yes Time Spent with Patient Time Spent with Patient: 45-69 minutes Time was spent: preparing to see the patient(eg.review tests), obtaining and/or reviewing separately otained hiistory, ordering medications,tests, procedures, referring, communicating with other health career counselor, indepentently interpreting results and care coordination
--- NOTE | 2022-03-12 16:17 | PDOC.HHF2F ---
Home Health Referral Home Health Orders Clinical synopsis of why skilled professionals are needed: This 82 years old male patient [facility], markedly elevated WBC and fever as well as slight altered mental status and tachycardia.?He was found to have pneumonia due to COVID-19 virus and an obstructing renal stone. He had a nephrostomy tube placed by IR as urology was not available. Ultimately, he will need a cystoscopy, retrograde pyelogram, ureteroscopy and possible holmium laser lithotripsy of his stone.? His current COVID status and pneumonia make him currently not an elective surgical/anesthesia candidate. He has a significant history of vascular disease and has multiple cardiac risk factors.? His primary medical care has [facility] provided through [facility] [place].? Medical diagnosis necessitation home health referral: UTI; Bacteremia Registered Nurse: Check all that apply Instruct on new or changed medication(s)/assess compliance: Ordered Instruct on, and maintenance of, urinary device: Ordered (nephrostomy tube) Assess for exacerbation of medical condition, instruct patient/caregivers on signs and symptoms to report for early detection: Ordered Physical Therapist: Check all that apply Increase strength & endurance for safe mobility at home: Ordered To design/establish home maintenance program: Ordered Fall reduction therapy program for patient with history of frequent falls: Ordered Home safety evaluation and teaching/gait training including stair management (if applicable): Ordered Occupational Therapist: Evaluate and treat for patient unable to perform ADL/IADL/self-care: Ordered Upper extremity strengthening, range and motion: Ordered Pilot Safety Inspector: Assist with community resources: Ordered Assist with correction care planning: Ordered Home Bound Status Requires the aid of supportive device (check all that apply): Walker Assistance of another person (Describe assistance and medical necessity): for safety outdoors Describe why leaving home would require a considerable and taxing effort: Safety Concerns: describe (weakness, L BKA ) Encounter Date and Reason: I certify that a FTF encounter for this patient was performed on March 12, 2022 and that such encounter was related to the primary reason the patient requires home health services. The encounter was conducted in the following manner: By me as the certifying physician, SENIOR ORACLE DATABASE DEVELOPER, PA or By an inpatient physician, SENIOR ORACLE DATABASE DEVELOPER or PA during an inpatient stay who communicated findings to me, Certification And Authentication I certify that I composed the above information based on my clinical judgment relating to this patient's medical condition and, if applicable, clinical findings communicated to me by the NPP or inpatient physician who performed the FTF encounter. Name of Provider that will be monitoring home health services: Brad Morrow
--- NOTE | 2022-03-12 16:41 | W.PM.DS.N ---
Date of service: 03/12/22 Time of Service: 16:41 DS: Diagnosis Discharge Diagnosis (1) Left ureteral stone: Status: Acute Discharge Plan Disposition Patient Disposition: Home Condition: Improving Discharge Details Reason For Visit: Sepsis Syndrome/UTI, COVID-19 infection, COPD exac Admit Date/Time: 03/04/22 03:16 Admit Provider: Tyler Earl Attending Provider: Tyler Earl Primary Care Provider: Brad Morrow Hospital Course Hospital Course: This is an 82[facility]-old [facility] with a history of Wernicke encephalopathy,left BKA, hypertension,COPD, COVID-19 in january and bilat carotid artery stenosis who presented to the ED on 03/04/2022 with 24 to 48 hours of fever, weakness not be able to get up and cough.? He appeared septic with a markedly elevated WBC, tachycardia and slightly altered mental status which improved with IV antibiotic therapy for a presumed UTI.? He was initiated on broad-spectrum IV antibiotic therapy with ED physician thinking the patient had patchy infiltrates with clinical exam consistent with this and suspicious of COVID-19 pneumonia with positive COVID-19 test but also possible bacterial pneumonia with elevated markers.? Procalcitonin was elevated.? Patient also had a possible UTI as a source of infection.?He did improve with IV antibiotic therapy and because of elevated BNP had slow fluid resuscitation which was continued.? His creatinine was increased from baseline and he had lactic acidosis. The [facility] well as [facility] were consulted for admission but they declined him. He was initiated on broad-spectrum IV antibiotics with Zosyn, vancomycin and doxycycline then narrowed down to ceftriaxone due to his positive blood and urine cultures for Klebsiella pneumoniae. Renal ultrasound and CT of the abdomen and pelvis were ordered on 03/05/22 to further investigate his UTI. Results: There are bilateral renal cysts.? The largest on the right measures 3.2 x 2.3 x 2.3 cm.? The largest on the left measures 4.2 x 3.4 x 3.2 cm.? These are stable compared to the CT scan from 07/07/2021.? Nephrolithiasis: No stones are seen sonographically.? The CT scan from 07/07/2021 does show bilateral nephrolithiasis.? The bladder wall does appear thickened at almost 1 cm.? This does correlate with the findings on the CT scan however which showed thickened urinary bladder wall.? 1. 3 mm left UPJ stone causing mild hydronephrosis. 2. Bilateral nephrolithiasis. 3. 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 4. Small bilateral pleural effusions and subjacent infiltrates which may represent atelectasis or pneumonia.? Nephrostomy tube place at [facility] on 03/09 Echocardiogram completed on 03/06 reports an LVEF of 63% by Howe's biplane, aortic stenosis, LV systolic fxn nl; No wall motion abnormalities, RV systolic fxn nl; sig pulmonary htn RV systolic pressure 55 mmhg; mild mitral regurg; mild to moderate tricuspid regurg He was evaluated by Dr Resendiz, urology. Patient will need a cystoscopy, retrograde pyelogram, ureteroscopy and possible holmium laser lithotripsy of his stone.?He has a significant history of vascular disease and has multiple cardiac risk factors.? [facility] [place].? He is being discharged to home with 5 days of Prednisone and 10 days of Cefpodoxime. He will follow up with PCP and urology. 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 states that he doesn't take this medication. albuterol sulfate 90 mcg/actuation HFA aerosol inhaler 2 puff INHALATION Q6H PRN aspirin 81 mg Tablet,Delayed Release (Dr/Ec) 81 mg PO DAILY atorvastatin 40 mg Tablet 40 mg PO HS alendronate 70 mg Tablet 70 mg PO QWEEK Rx Instructions: every friday calcium carbonate-vitamin D3 [Calcium 500 + D] 500 mg-5 mcg (200 unit) Tablet 2 tab PO DAILY tiotropium bromide 2.5 mcg/actuation Mist 2 puff INHALATION DAILY trazodone 100 mg Tablet 300 mg PO HS tamsulosin 0.4 mg capsule 0.4 mg PO DAILY AM potassium chloride 20 mEq tablet extended release 20 meq PO DAILY Qty: 30 0RF lisinopril 10 MG tablet 10 mg PO QPM Qty: 0 0RF furosemide 20 mg Tablet 20 mg PO DAILY Qty: 0 0RF Discharge Instructions Instructions: Prednisone (By mouth), Cefpodoxime Proxetil (By mouth), Kidney Stones (DC), Urinary Tract Infection in Men (ED), How to Strain Your Urine (ED), Nephrostomy Tube Insertion (DC) Additional Instructions: Continue prednisone for 5 days. Take antibiotic (Cefpodoxime) for 2 weeks. Tylenol for pain. Follow up with PCP and urology. Continue home medications. Stand Alone Forms: Nursing Discharge Form Referrals: Brad Morrow [Primary Care Provider] - (Please call tomorrow to make a follow up appointment for 1-2 weeks) Activity:: Activity as Tolerated Equipment/Supplies:: Walker Diet:: As Tolerated Discharge Orders Discharge Orders: Discharge Order (Routine); Ordered 03/12/22 Ordered By: Bhavya Benitez DS: Summary Time Spent with Patient providing and/or coordinating discharge services: Greater than 30 minutes Status at Discharge Functional status at discharge: uses cane/walker Overall status at discharge: patient is back to baseline Mental Status: mental status grossly normal Speech and Movement: speech and movement normal Mood: congruent mood Affect: normal affect Exam Const General: cooperative, no acute distress, frail appearing and ill appearing chronically Nutritional Appearance: obese Orientation: alert, awake and oriented x3 HENMT Head: normal to inspection, normocephalic and atraumatic Mouth: oral mucosae normal Resp Effort & Inspection: normal respiratory effort Cardio Rate: regular rate Rhythm: regular rhythm GI Inspection: obesity Palpation: soft Auscultation: normal bowel sounds Back/Spine/Pelvis Back: other (left nephrostomy tube intact no drainage on dressing, draining bloody drain) Neuro General: patient alert, patient awake and patient oriented x3 Extrem General: normal to inspection and full ROM Psych Mental Status: mental status grossly normal Speech and Movement: speech and movement normal Mood: congruent mood Affect: normal affect DS: Data Vitals/I&O Vitals and I&O: Vital Signs Temperature 36.8 C 03/12/22 14:20 Temperature Source Tympanic 03/12/22 14:20 Pulse 65 03/12/22 14:20 Pulse Rhythm Regular 03/12/22 09:06 Pulse 83 03/04/22 03:50 Respiratory Rate 20 03/12/22 14:20 Respiratory Effort 03/12/22 09:06 Respiratory Depth Normal 03/12/22 09:06 Respiratory Pattern Normal 03/12/22 09:06 Blood Pressure 130/61 03/12/22 14:20 Blood Pressure Mean 100 03/04/22 03:45 Blood Pressure Position Sitting 03/03/22 20:09 Pulse Oximetry 95 03/12/22 14:20 Oxygen Delivery Method Room Air 03/12/22 14:20 Oxygen Flow Rate 0 03/12/22 14:20 Pain Level 0 03/12/22 14:20 Comment 03/08/22 16:16 Intake & Output 03/11/22 03/12/22 03/12/22 23:59 11:59 23:59 Intake Total 372.5 / 662.5 87.5 / 87.5 Output Total 1250 / 2275 200 / 200 Balance -877.5 / -1612.5 87.5 / -112.5 -200 / -112.5 Weight 90.9 kg Intake: IV 172.5 / 222.5 87.5 / 87.5 Oral 200 / 440 Output: Drainage 300 / 300 LEFT FLANK 300 / 300 Urine 950 / 1975 200 / 200 Other: Urine Color Yellow Yellow Urine Appearance Clear Clear Clear Urine Odor None Stool Size Large Stool Characteristics Soft Voiding Methods Urinal Urinal Data Completed and Pending Labs on day of discharge: Labs from last 24 hours 03/12/22 03/12/22 03/12/22 Unknown 06:50 06:50 WBC 8.71 RBC 4.00 L Hgb 10.8 L Hct 33.6 L MCV 84 MCH 27.0 MCHC 32.1 RDW 17.1 H Plt Count 221 MPV 11.9 H Immature Gran % 1.3 Neutrophils % 78.1 Lymphocytes % 12.7 Monocytes % 7.7 Eosinophils % 0.1 Basophils % 0.1 Nucleated RBC % 0.0 Absolute Neutrophils 6.80 H Absolute Lymphocytes 1.11 L Absolute Monocytes 0.67 Absolute Eosinophils 0.01 Absolute Basophils 0.01 Sodium 139 Potassium 3.9 Chloride 104 Carbon Dioxide 28.9 Anion Gap 6.1 BUN 23 H Creatinine 0.7 Est GFR (CKD-EPI 2020) 93.15 Glucose 125 H Calcium 8.3 L Magnesium 1.8 M. pneumoniae Source M. pneumoniae (PCR) Add-On Test Request Pending 03/07/22 18:30 WBC RBC Hgb Hct MCV MCH MCHC RDW Plt Count MPV Immature Gran % Neutrophils % Lymphocytes % Monocytes % Eosinophils % Basophils % Nucleated RBC % Absolute Neutrophils Absolute Lymphocytes Absolute Monocytes Absolute Eosinophils Absolute Basophils Sodium Potassium Chloride Carbon Dioxide Anion Gap BUN Creatinine Est GFR (CKD-EPI 2020) Glucose Calcium Magnesium M. pneumoniae Source Sputum M. pneumoniae (PCR) Negative Add-On Test Request Preliminary micro results at discharge 03/07/22 15:30 Blood Culture - Preliminary Blood NO GROWTH 96 HOURS 03/07/22 15:24 Blood Culture - Preliminary Blood NO GROWTH 96 HOURS PFSH All Active Problems (Updated 03/10/22 @ 16:02 by Mikayla Weston NP) Left ureteral stone (Acute) Weak (Acute) Discharge planning issues (Acute) DVT prophylaxis (Acute) Elevated troponin (Acute) Continuous tobacco abuse (Chronic) Sepsis (Acute) Acute UTI (Acute) Pneumonia due to COVID-19 virus (Acute) Bandemia (Acute) Orthostatic hypotension (Acute) B12 deficiency anemia (Acute) Anemia (Chronic) Osteomyelitis of left foot (Acute) DNR (do not resuscitate) (Acute) Health insurance with [employer] (Acute) Pneumonia (Acute) Wernicke encephalopathy (Acute) Insomnia (Acute) Intention tremor (Chronic) COPD exacerbation (Acute) Hypertension (Chronic) Pain (Acute) Syncope (Acute) Fracture of rib of left side (Chronic) Laceration of right thumb (Acute) Thoracic vertebral fracture (Acute) Peripheral neuropathy (Chronic) Peripheral vertigo of both ears (Acute) Stenosis of right internal carotid artery (Acute) Dizziness (Acute) Chest pain (Acute) Alcohol abuse (Chronic) Community acquired pneumonia (Acute) COPD (chronic obstructive pulmonary disease) (Chronic) Hyponatremia (Chronic) Pancytopenia (Acute) Medical History Alcohol abuse GERD (gastroesophageal reflux disease) HTN (hypertension) Hx of hyperlipidemia Orthostatic hypotension Stenosis of both internal carotid arteries Vertigo Surgical History Fracture of right hip pinning Hx of cholecystectomy Social History Smoking/Tobacco Use Status: Current every day Tobacco Type: cigars Smoking risk assessment performed?: Yes Alcohol Intake: former Drug use: Never Substance use type: does not use Do you feel safe at home: Yes Do you feel safe in your relationship?: Yes Additional Social history: Lives in his own apartment, [address] in [facility]
[2022-03-12 16:47] LABS: Lab Add On Test DONE
--- NOTE | 2022-03-12 17:28 | PT.INDS ---
Date of service: 03/12/22 Time of Service: 17:28 PT Notes Visit Reasons: Sepsis Syndrome/UTI, COVID-19 infection, COPD exac Physical Therapy Inpatient Discharge Summary Date:?03/12/2022 Dates of service: 03/04/2022 through 03/10/2022 This is a clinical summary of care provided for the duration of dates listed above. No charge was made in the completion of this documentation. Referring Doctor:? Tyler Earl MD PT Orders: PT CONSULT: Limited ability Precautions: COVID-19 infection.? Fall.? L BKA postop month 3. Patient Profile/Admitting Diagnosis:? Patient is an 82-year-old male patient who presented to the ED on 03/03/2022 due to cough, shortness of breath, and R leg swelling.? Patient is diagnosed with sepsis,? COVID-19 infection,? PNA,? acute UTI,? COPD axacerbation,? elevated troponin,? continuous tobacco abuse. PMHX: PFSH All Active Problems?(Updated 03/04/22 @ 07:02 by Tyler Earl) Elevated troponin (Acute) Continuous tobacco abuse (Chronic) Sepsis (Acute) Acute UTI (Acute) Pneumonia due to COVID-19 virus (Acute) Bandemia (Acute) Orthostatic hypotension (Acute) B12 deficiency anemia (Acute) Anemia (Chronic) Osteomyelitis of left foot (Acute) DNR (do not resuscitate) (Acute) Health insurance with [employer] (Acute) Acute exacerbation of chronic obstructive pulmonary disease (COPD) (Acute) Pneumonia (Acute) Wernicke encephalopathy (Acute) Insomnia (Acute) Intention tremor (Chronic) COPD exacerbation (Acute) Hypertension (Chronic) Pain (Acute) Syncope (Acute) Fracture of rib of left side (Chronic) Laceration of right thumb (Acute) Thoracic vertebral fracture (Acute) Peripheral neuropathy (Chronic) Peripheral vertigo of both ears (Acute) Stenosis of right internal carotid artery (Acute) Dizziness (Acute) Chest pain (Acute) Alcohol abuse (Chronic) Community acquired pneumonia (Acute) COPD (chronic obstructive pulmonary disease) (Chronic) Hyponatremia (Chronic) Pancytopenia (Acute) Medical History? Alcohol abuse GERD (gastroesophageal reflux disease) HTN (hypertension) Hx of hyperlipidemia Orthostatic hypotension Stenosis of both internal carotid arteries Vertigo Surgical History? Fracture of right hip pinning Hx of cholecystectomy Vertigo Social History/Home Situation: Lives alone on the second floor of an apartment building in [facility] with a ramp and an elevator to enter.? Patient is modified independent using motorized wheelchair for all transfers and indoor/outdoor mobility.? He has a lady who comes in once or twice a week to perform house chores and laundry. Equipment Owned/DME: Motorized wheelchair, 4WW Subjective:? NT. See most recent LINE COOK notes. Objective:? General Observation:? ? NT. See most recent LINE COOK notes. Mental Status: NT. See most recent LINE COOK notes. Pain: NT. See most recent LINE COOK notes. Vital Signs: NT. See most recent LINE COOK notes. ROM: Right Upper Extremity: ? Shoulder Flexion WFL. Shoulder abduction WFL. Elbow flexion WFL. Wrist flexion WFL. Functional opening and closing of hand WFL. Left Upper Extremity:? Shoulder Flexion WFL. Shoulder abduction WFL. Elbow flexion WFL. Wrist flexion WFL. Functional opening and closing of hand WFL.? Pain at end range of L shoulder ROM. Right Lower Extremity: Hip flexion WFL. Hip abduction WFL. Knee flexion WFL. Ankle dorsiflexion WFL. Ankle plantarflexion WFL. Left Lower Extremity: Hip flexion WFL. Hip abduction WFL. Knee flexion 10 degrees to 90 degrees. Knee extensors -10 to 90 degrees.? Ankle dorsiflexion WFL. Ankle plantarflexion WFL. Strength: Right Upper Extremity: Shoulder flexors 4/5. Shoulder abductors 4-/5. Elbow flexors 4/5. Elbow extensors 4/5. Private Equity Associate strong. Left Upper Extremity: Shoulder flexors 4/5. Shoulder abductors 4-/5. Elbow flexors 4/5. Elbow extensors 4/5. Private Equity Associate strong. Right Lower Extremity: Hip flexors 4-/5. Hip abductors 4-/5. Knee flexors 4-/5. Knee extensors 4-/5. Ankle dorsiflexors 4-/5. Ankle plantarflexors 4-/5. Left Lower Extremity: Hip flexors 4-/5. Hip abductors 4-/5. Knee flexors 3-/5. Knee extensors 3-5. Ankle dorsiflexors N/A. Ankle plantarflexors N/A. Sensation:? Diminished sensation bilateral lower extremities secondary to peripheral neuropathy.? Bed Mobility/Transfers:?? Supine to sit: stand by assist with HOB at 30 degrees Sit to squat: stand by assist holding onto bed rail Bed to wheelchair: set up assist with wheelchair placed close to good R LE ? Gait:? N/A Balance:? Static Sitting: Normal Dynamic Sitting: Good Static Standing: Unable Dynamic Standing: Unable Assessment:?? Patient compliance has been a challenge since start of care. L BKA intact incision well aproxiated and healing.? Patient requires stand by assist after set up of regular wheelchair for transfers.? Has been non-ambulatory since 2-3 months agoa after L BKA.? Patient presents with clinical signs and symptoms consistent with current/admitting diagnoses sepsis and osteomyelitis left foot that have resulted to mobility limitations, gait instability, generalized weakness, and overall ADL decline as demonstrated by the following impairment level findings: 1.? Decreased strength to B LE major muscle groups 2.? Impaired standing balance 3.? Impaired activity tolerance 4.? Swelling in Rleg Impairments are contributing to the following functional limitations: 1.? Decline in transfer skills 2.? Inability to ambulate due to R leg sweeling and L BKA 3.? Increased completion time for mobility ADL performance 4.? Increased risk for falls 5.? Increased risk for further skin breakdown/infection Goals: Goals X1 week 1. Supine-Sit independent NOT MET 2. Sit-Supine independent NOT MET 3. Sit-Stand independent NOT MET 4. Stand-Sit independent NOT MET 5. Bed-Chair independent with sit-squat tranfer after set up MET 6. Chair-Bed supervision with sit-squat tranfer after set up MET DISCHARGE RECOMMENDATIONS:?? [X]? Home with services. HHPT Patient will benefit from home health PT services in order to progress mobility level using least restrictive assistive ambulatory device, assess home safety, identify additional equipment needs, and establish a functional maintenance program that will increase ability of patient to remain at home. ? TREATMENT CODE/TIME: NC. Patient refused today's treatment. Thank you for the opportunity to participate in the care of this patient. Cat Salmeron PT, DPT, CLT [facility] [place], [place]
[2022-03-12 17:43] LABS: Procalcitonin 0.3 ng/mL
== END 2022-03-12 18:12 | disposition home or self-care (01) | DRG 871 ==
LOC: ER 03-04 03:52 → MS 03-04 04:13
PROVIDERS: Internal Medicine; Nurse Practitioner Family; Admitting Provider Family Medicine; Emergency Provider Student in an Organized Health Care Education/Training Program; PCP Internal Medicine; Visit Provider Family Medicine
DX: A41.59 Other Gram-negative sepsis (principal); J12.82 Pneumonia due to coronavirus disease 2019; U07.1 COVID-19; J44.0 Chronic obstructive pulmonary disease with (acute) lower respiratory infection; J44.1 Chronic obstructive pulmonary disease with (acute) exacerbation; I24.8 Other forms of acute ischemic heart disease; E87.20 Acidosis, unspecified; E87.1 Hypo-osmolality and hyponatremia; D61.818 Other pancytopenia; N13.6 Pyonephrosis; F10.11 Alcohol abuse, in remission; I10 Essential (primary) hypertension; Z89.512 Acquired absence of left leg below knee; R53.1 Weakness; D72.825 Bandemia; Z66 Do not resuscitate; D51.9 Vitamin B12 deficiency anemia, unspecified; F17.290 Nicotine dependence, other tobacco product, uncomplicated; I65.23 Occlusion and stenosis of bilateral carotid arteries; B96.1 Klebsiella pneumoniae [K. pneumoniae] as the cause of diseases classified elsewhere
CPT/HCPCS: 36415; 76770; 80048; 80053; 82550; 84145; 85027; 86704; 86706; 86803; 87040; 87077; 87081; 87340; 87389; 87449; 87637; 93005; 94640; 96365; 96366; 96367; 96368; 97110; 97162; 97165; 97530; 99291; J1650; 71045; 74176; 80202; 81003; 81015; 82728; 83605; 83615; 83735; 83880; 84484; 85025; 85379; 85610; 86140; 87070; 87086; 87186; 87205; 87581; 87899; 93010; 93306; 94667; 99223; 99232; 99233; 99239; J0248; J1100; J2543; J3475; J7620; J8540

== ENCOUNTER 2022-03-22 21:33 | Emergency (ER) | payer OTHER, SELFPAY ==
[2022-03-22] VITALS (23 sets, daily range): BP systolic 97–124; BP diastolic 44–57; PULSE 70–80; RESP 15–38; TEMP 37.4; O2SAT 84–96
--- NOTE | 2022-03-22 21:30 | RT.EKG_ITS ---
APPROVED REPORT Exam: Resting ECG Reason for Exam: chest pain Patient Location: E HR:85 bpm ECG Measurements Heart Rate 85 AXIS MA 151 P 86 QRSd 86 QRS 57 QT 364 T 29 QTc 430 Conclusion Sinus rhythm...normal P axis, V-rate 60- 99 Atrial premature complexes...SV complexes w/ short R-R intvls
--- NOTE | 2022-03-22 21:45 | DI.RAD_ITS ---
Exam(s) XR CHEST 2V PA LATERAL EXAM: XR CHEST 2V PA LATERAL CLINICAL HISTORY: L chest pain TECHNIQUE: 2D digital imaging was performed. COMPARISON: CR XR CHEST 2V PA LATERAL from 06/21/2021 CR,XR XR PORTABLE CHEST AP from 10/20/2021 CR XR PORTABLE CHEST AP from 10/22/2021 CR,XR XR PORTABLE CHEST AP from 03/03/2022 FINDINGS: HEART: Normal size. Aorta: Not dilated. PULMONARY VASCULATURE: Normal. LUNGS: Bilateral calcific pleural plaques somewhat obscures visualization of the pulmonary parenchyma . No gross infiltrates. PLEURAL SPACE: Bilateral calcific pleural plaques. No pleural effusion or pneumothorax. BONE: Mild midthoracic compression fracture, stable. Syndesmophyte formation. IMPRESSION: No acute abnormality. DATA REPOSITORY: RADIATION DOSE DELIVERED:
--- NOTE | 2022-03-22 22:00 | ED.GENADUL_ITS ---
Discharge Plan Disposition Patient Disposition: Home Condition: Improving Discharge Details Clinical Impression: Chest wall pain Primary Care Provider: Brad Morrow ED Provider: Rosario Almendarez Home Meds and New Rx's Prescriptions: New lidocaine [Lidoderm] 5 % adhesive patch,medicated 1 patch TP DAILY PRN (Reason: pain) Qty: 15 0RF Rx Instructions: leave on most painful area for up to 12 hrs Continued nitroglycerin [Nitrostat] 0.4 mg tablet, sublingual 0.4 mg Sublingual Q5M PRN Rx Instructions: for chest pain amlodipine 10 MG tablet 5 mg PO DAILY omeprazole 20 MG capsule,delayed release(DR/EC) 40 mg PO DAILY AM Label Comments: Pt. states that he doesn't take this medication. albuterol sulfate 90 mcg/actuation HFA aerosol inhaler 2 puff INHALATION Q6H PRN aspirin 81 mg Tablet,Delayed Release (Dr/Ec) 81 mg PO DAILY atorvastatin 40 mg Tablet 40 mg PO HS alendronate 70 mg Tablet 70 mg PO QWEEK Rx Instructions: every friday calcium carbonate-vitamin D3 [Calcium 500 + D] 500 mg-5 mcg (200 unit) Tablet 2 tab PO DAILY tiotropium bromide 2.5 mcg/actuation Mist 2 puff INHALATION DAILY trazodone 100 mg Tablet 300 mg PO HS tamsulosin 0.4 mg capsule 0.4 mg PO DAILY AM prednisone 20 mg tablet 40 mg PO DAILY Qty: 10 0RF cefpodoxime 200 mg tablet 200 mg PO BID Qty: 28 0RF Rx Instructions: must administer with a meal/food potassium chloride 20 mEq tablet extended release 20 meq PO DAILY Qty: 30 0RF lisinopril 10 MG tablet 10 mg PO QPM Qty: 0 0RF furosemide 20 mg Tablet 20 mg PO DAILY Qty: 0 0RF Discharge Instructions Instructions: Chest Wall Pain (ED) Additional Instructions: Your blood tests, EKG and imaging today are reassuring and show no evidence of acute concerning or significant findings. A prescription for Lidoderm patches has been sent electronically to [facility] in [facility]. Follow-up with your primary care doctor in 1 week. Return to the emergency department with any worsening or new concerning symptoms. Discharge Data Discharge Physician: Rosario Almendarez Medical Decision Making <Kurtis Taylor MD - Last Filed: 03/22/22 22:45> This is an 82-year-old male who presents from home via EMS. He states he had the unprovoked onset of left-sided chest pain while in bed this evening. He will note that he fell while transferring to his wheelchair 2 days ago but had not noted any injury. He has recovered from COVID and recently was admitted to the hospital, secondary to which she continues to take oral antibiotic. He arrives to the ER improving. The pain is reproducible on exam and palpation of the left chest wall. The patient is improving by the time of arrival. Differential diagnosis includes chest wall strain, contusion, ACS. IV access established, screening labs obtained, patient referred for chest x- ray. He is given acetaminophen. EKG unremarkable. CBC shows a white count 11, hematocrit 32, platelets 195. Electrolytes within normal limits. BUN is 11 with a creatinine of 0.8. Initial troponin is negative. Patient to be signed out to Dr. Almendarez pending observation, review of chest x- ray and repeat troponin. <Rosario Almendarez DO - Last Filed: 03/23/22 01:31> This is an 82-year-old male who presents from home via EMS. He states he had the unprovoked onset of left-sided chest pain while in bed this evening. He will note that he fell while transferring to his wheelchair 2 days ago but had not noted any injury. He has recovered from COVID and recently was admitted to the hospital, secondary to which she continues to take oral antibiotic. He arrives to the ER improving. The pain is reproducible on exam and palpation of the left chest wall. The patient is improving by the time of arrival. Differential diagnosis includes chest wall strain, contusion, ACS. IV access established, screening labs obtained, patient referred for chest x- ray. He is given acetaminophen. EKG unremarkable. CBC shows a white count 11, hematocrit 32, platelets 195. Electrolytes within normal limits. BUN is 11 with a creatinine of 0.8. Initial troponin is negative. Patient to be signed out to Dr. Almendarez pending observation, review of chest x- ray and repeat troponin. Dr. Almendarez 0120 --repeat troponin negative. Chest x-ray negative for acute disease. Patient reassessed and he feels much better and feels comfortable going home. A prescription for Lidoderm patches has been sent electronically to his pharmacy. Advised to follow up with the primary care doctor for re-evaluation. Usual and customary return precautions given prior to discharge. Medical Records Medical records reviewed: Yes I reviewed the patient's medical records. Imaging Data Radiologic Study: Radiologist's impression: XR Chest Exam date and time: 03/22/2022 10:58 PM Age: 82 years old Clinical indication: Chest wall pain; Additional info: Lt chest pain TECHNIQUE: Imaging protocol: Radiologic exam of the chest. Views: 2 views. COMPARISON: XR PORTABLE CHEST AP 03/03/2022 8:34 PM FINDINGS: Lungs: No acute lung infiltrates. No edema. Pleural spaces: Bilateral calcified pleural plaques. Stable appearance since 03/03/2022. Heart/Mediastinum: Normal heart size. Bones/joints: Thoracic spine degenerative changes. IMPRESSION: 1. No lung infiltrates or edema. 2. No pleural effusion. Bilateral multifocal calcified pleural plaques. 3. Thoracic spine degenerative change. 4. Stable exam since 03/03/2022. Lab Data Lab results reviewed: Yes I reviewed the patient's lab results. Labs: Laboratory Tests Range/Units 03/22/22 03/22/22 03/23/22 21:42 21:42 00:28 WBC (4.4-10.8) 10^3/uL 11.16 H RBC (4.36-5.78) 10^6/uL 3.72 L Hgb (13.5-17.5) g/dL 10.2 L Hct (40.0-50.0) % 32.3 L MCV (80-95) fL 87 MCH (27.0-33.0) pg 27.4 MCHC (32.0-36.0) % 31.6 L RDW (11.8-14.1) % 17.6 H Plt Count (130-400) 10^3/uL 195 MPV (8.0-11.0) fL 11.2 H Immature Gran % 0.4 Neutrophils % 76.2 Lymphocytes % 13.4 Monocytes % 8.5 Eosinophils % 1.3 Basophils % 0.2 Nucleated RBC % (0.0-0.3) % 0.0 Absolute Neutrophils (1.2-6.7) 10^3/uL 8.50 H Absolute Lymphocytes (1.2-3.4) 10^3/uL 1.50 Absolute Monocytes (0.1-0.8) 10^3/uL 0.95 H Absolute Eosinophils (0.0-0.7) 10^3/uL 0.15 Absolute Basophils (0.0-0.2) 10^3/uL 0.02 Sodium (136-145) mmol/L 139 Potassium (3.5-5.1) mmol/L 4.1 Chloride (98-107) mmol/L 104 Carbon Dioxide (21.0-32.0) mmol/L 29.4 Anion Gap (3-11) mmol/L 5.6 BUN (7-18) mg/dL 11 Creatinine (0.70-1.30) mg/dL 0.8 Est GFR (CKD-EPI 2020) (mL/min/1.73m2) 89.47 Glucose (74-106) mg/dL 95 Calcium (8.5-10.1) mg/dL 8.4 L Magnesium (1.8-2.4) mg/dL 2.0 Total Bilirubin (0.2-1.0) mg/dL 0.5 AST (15-37) U/L 19 ALT (16-63) U/L 23 Alkaline Phosphatase (46-116) U/L 135 H Troponin I (<or=60) ng/L < 50 < 50 Total Protein (6.4-8.2) g/dL 6.9 Albumin (3.4-5.0) g/dL 2.2 L ECG Data Attestation: I personally reviewed and interpreted this ECG (s) as follows: Interpretation: Rate of 85, sinus, PACs, no STEMI. HPI <Kurtis Taylor MD - Last Filed: 03/22/22 22:45> General Mode of arrival: EMS . Date/Time Provider Initiated Documentation: 03/22/22 22:43 . Limitations to Documentation: no limitations . Information obtained by: patient and EMS . History of Present Illness 82 year old M presents to the emergency department with the chief complaint of Left- sided chest pain in bed tonight, described as moderate, Quality is described as dull and constant, and is localized to the chest and left. Patient started experiencing this hour(s) and it has been constant. No relieving factors improve symptom(s), Other factors that worsen symptoms (Palpation) . Patient notes chest pain; denies cough, rash, shortness of breath, syncope and weakness. Patient did receive the following treatments prior to arrival, none Related Data Home Medications Medication Instructions Recorded Confirmed amlodipine 10 mg tablet 5 mg PO DAILY 10/25/14 03/04/22 omeprazole 20 mg capsule,delayed 40 mg PO DAILY AM 10/25/14 03/04/22 release lisinopril 10 mg tablet 10 mg PO QPM #0 tabs 07/11/20 10/24/21 potassium chloride 20 mEq 20 meq PO DAILY #30 tabs 07/11/20 03/04/22 tablet,extended release furosemide 20 mg tablet 20 mg PO DAILY #0 tabs 07/17/21 03/04/22 albuterol sulfate 90 mcg/actuation 2 puff inhalation Q6H PRN 07/30/21 03/04/22 aerosol inhaler nitroglycerin 0.4 mg sublingual 0.4 mg sublingual Q5M PRN 07/30/21 10/24/21 tablet (Nitrostat) alendronate 70 mg tablet 70 mg PO QWEEK 10/20/21 03/04/22 aspirin 81 mg tablet,delayed 81 mg PO DAILY 10/20/21 03/04/22 release atorvastatin 40 mg tablet 40 mg PO HS 10/20/21 03/04/22 calcium carbonate 500 mg-vitamin 2 tab PO DAILY 10/20/21 10/24/21 D3 5 mcg (200 unit) tablet (Calcium 500 + D) tiotropium bromide 2.5 2 puff inhalation DAILY 10/20/21 10/24/21 mcg/actuation mist for inhalation trazodone 100 mg tablet 300 mg PO HS 10/20/21 03/04/22 tamsulosin 0.4 mg capsule 0.4 mg PO DAILY AM 03/04/22 03/04/22 cefpodoxime 200 mg tablet 200 mg PO BID #28 tabs 03/12/22 prednisone 20 mg tablet 40 mg PO DAILY #10 tabs 03/12/22 lidocaine 5 % topical patch 1 patch topical DAILY PRN pain #15 03/23/22 (Lidoderm) ea Previous Rx's Medication Instructions Recorded lisinopril 10 mg tablet 10 mg PO QPM #0 tabs 07/11/20 potassium chloride 20 mEq 20 meq PO DAILY #30 tabs 07/11/20 tablet,extended release furosemide 20 mg tablet 20 mg PO DAILY #0 tabs 07/17/21 cefpodoxime 200 mg tablet 200 mg PO BID #28 tabs 03/12/22 prednisone 20 mg tablet 40 mg PO DAILY #10 tabs 03/12/22 lidocaine 5 % topical patch 1 patch topical DAILY PRN pain #15 03/23/22 (Lidoderm) ea Allergies Allergy/AdvReac Type Severity Reaction Status Date / Time No Known Allergies Allergy Verified 03/04/22 02:18 General Stated Complaint: Chest Pain EDITH: 3 Review of Systems <Kurtis Taylor MD - Last Filed: 03/22/22 22:45> Narrative: Finished antibiotics for urinary tract infection, urinary catheter in place. Had a fall when transferring to his wheelchair 2 days ago. No back/abdomen pain. No shortness of breath. 8 systems reviewed and otherwise negative PFSH <Kurtis Taylor MD - Last Filed: 03/22/22 22:45> All Active Problems (Updated 03/23/22 @ 01:25 by Rosario Almendarez DO) Chest wall pain (Acute) Left ureteral stone (Acute) Weak (Acute) Continuous tobacco abuse (Chronic) Sepsis (Acute) Acute UTI (Acute) Pneumonia due to COVID-19 virus (Acute) Bandemia (Acute) Orthostatic hypotension (Acute) B12 deficiency anemia (Acute) Anemia (Chronic) Osteomyelitis of left foot (Acute) DNR (do not resuscitate) (Acute) Health insurance with [facility] [employer] (Acute) Pneumonia (Acute) Wernicke encephalopathy (Acute) Insomnia (Acute) Intention tremor (Chronic) COPD exacerbation (Acute) Hypertension (Chronic) Pain (Acute) Syncope (Acute) Fracture of rib of left side (Chronic) Laceration of right thumb (Acute) Thoracic vertebral fracture (Acute) Peripheral neuropathy (Chronic) Peripheral vertigo of both ears (Acute) Stenosis of right internal carotid artery (Acute) Dizziness (Acute) Chest pain (Acute) Alcohol abuse (Chronic) Community acquired pneumonia (Acute) COPD (chronic obstructive pulmonary disease) (Chronic) Hyponatremia (Chronic) Pancytopenia (Acute) Medical History Alcohol abuse GERD (gastroesophageal reflux disease) HTN (hypertension) Hx of hyperlipidemia Orthostatic hypotension Stenosis of both internal carotid arteries Vertigo Surgical History Fracture of right hip pinning Hx of cholecystectomy Social History Smoking/Tobacco Use Status: Current every day Tobacco Type: cigars Smoking risk assessment performed?: Yes Alcohol Intake: former Drug use: Never Substance use type: does not use Do you feel safe at home: Yes Do you feel safe in your relationship?: Yes Additional Social history: Lives in his own apartment, [place] [facility] Exam <Kurtis Taylor MD - Last Filed: 03/22/22 22:45> Narrative Exam Narrative: GEN: awake, alert, oriented 3. Pleasant, well groomed, interactive. HEAD: Normocephalic, atraumatic ENT: Mucous membranes moist, oropharynx unremarkable, External ear exam unremarkable EYES: PERRL, EOMI NECK: Full ROM, no PETER, no menigismus CHEST/RESP: Left inferior chest wall anterior and left pectoralis tender to palpation, no rash appreciated, clear to auscultation bilateral, no wheeze/rhonchi/rales CARDIOVASCULAR: RRR, no murmur, rub draek. 2+ Rad pulse bilateral ABDOMEN: Soft, nontender, no mass. +Bowel sounds EXT: Full ROM, no edema, no rash Neuro: Grossly normal neurologic exam, conversant, interactive. Psych: Speech fluent, thoughts congruent, affect normal Course <Kurtis Taylor MD - Last Filed: 03/22/22 22:45> Vital Signs Vital signs: Vital Signs Pulse 77 03/22/22 21:47 Respiratory Rate 15 03/22/22 21:47 Blood Pressure 118/44 L 03/22/22 21:47 Pulse Oximetry 95 03/22/22 21:47 Pulse 77 03/22/22 21:47 Respiratory Rate 15 03/22/22 21:52 Respiratory Effort Non-Labored 03/22/22 21:53 Respiratory Depth Normal 03/22/22 21:52 Respiratory Pattern Normal 03/22/22 21:52 Blood Pressure 118/44 L 03/22/22 21:47 Blood Pressure Position Sitting 03/22/22 21:47 Pulse Oximetry 95 03/22/22 21:47 Oxygen Delivery Method Room Air 03/22/22 21:47 Oxygen Flow Rate 0 03/22/22 21:47 Pain Level 5 03/22/22 21:52 Sign Out <Kurtis Taylor MD - Last Filed: 03/22/22 22:45> Sign Out Data: Sign Out Comment: Followup CXR, repeat Trop Last updated by Kurtis Taylor MD at 03/22/22 22:46
[2022-03-22] MEDS: ACETAMINOPHEN 1,000 MG/100 ML BTL 400 MG IVPB (22:13)
[2022-03-22 22:19] LABS: Abs Immature Grans 0.04 10^3/uL (0.0-0.06); Absolute Basophil Count 0.02 10^3/uL (0.0-0.2); Absolute Eosinophil Count 0.15 10^3/uL (0.0-0.7); Absolute Monocyte Count 0.95 10^3/uL (0.1-0.8); Basophils % 0.2; Eosinophils % 1.3; HCT 32.3 % (40.0-50.0); HGB 10.2 g/dL (13.5-17.5); Immature Grans % 0.4; Lymphocytes % 13.4; MCH 27.4 pg (27.0-33.0); MCHC 31.6 % (32.0-36.0); MCV 87 fL (80-95); MPV 11.2 fL (8.0-11.0); Monocytes % 8.5; Neutrophils % 76.2; Platelet Count 195 10^3/uL (130-400); RBC 3.72 10^6/uL (4.36-5.78); RDW 17.6 % (11.8-14.1); RDW-SD 55.8 fL; WBC 11.16 10^3/uL (4.4-10.8)
[2022-03-22 22:36] LABS: ALT 23 U/L (16-63); AST 19 U/L (15-37); Albumin 2.2 g/dL (3.4-5.0); Alkaline Phosphatase 135 U/L (46-116); Anion Gap 5.6 mmol/L (3-11); BUN 11 mg/dL (7-18); Bilirubin, Total 0.5 mg/dL (0.2-1.0); CO2 29.4 mmol/L (21.0-32.0); CREATININE 0.8 mg/dL (0.70-1.30); Calcium 8.4 mg/dL (8.5-10.1); Chloride 104 mmol/L (98-107); Estimated GFR 89.47 (mL/min/1.73m2); Glucose 95 mg/dL (74-106); Potassium 4.1 mmol/L (3.5-5.1); Sodium 139 mmol/L (136-145); Total Protein 6.9 g/dL (6.4-8.2); Troponin I < 50 ng/L (<or=60)
--- NOTE | 2022-03-22 23:36 | DI.VRAD_ITS ---
PROCEDURE INFORMATION: Exam: XR Chest Exam date and time: 03/22/2022 10:58 PM Age: 82 years old Clinical indication: Chest wall pain; Additional info: Lt chest pain TECHNIQUE: Imaging protocol: Radiologic exam of the chest. Views: 2 views. COMPARISON: XR PORTABLE CHEST AP 03/03/2022 8:34 PM FINDINGS: Lungs: No acute lung infiltrates. No edema. Pleural spaces: Bilateral calcified pleural plaques. Stable appearance since 03/03/2022. Heart/Mediastinum: Normal heart size. Bones/joints: Thoracic spine degenerative changes. IMPRESSION: 1. No lung infiltrates or edema. 2. No pleural effusion. Bilateral multifocal calcified pleural plaques. 3. Thoracic spine degenerative change. 4. Stable exam since 03/03/2022. Dictated and Authenticated by: Nikunj Garza MD. Ordering:UMA Hull MD
[2022-03-23] VITALS (17 sets, daily range): BP systolic 95–128; BP diastolic 51–74; PULSE 63–92; RESP 16–32; O2SAT 91–98
[2022-03-23 00:58] LABS: Troponin I < 50 ng/L (<or=60)
== END 2022-03-23 01:54 | disposition home or self-care (01) ==
PROVIDERS: Emergency Medicine; Emergency Provider Physician Assistant; PCP Internal Medicine
DX: R07.9 Chest pain, unspecified (principal); Z86.16 Personal history of COVID-19; I10 Essential (primary) hypertension
CPT/HCPCS: 80053; 93005; 96374; 99284; 71046; 83735; 84484; 85025; 93010; J0131

== ENCOUNTER 2022-04-04 11:14 | Observation (INO) | payer OTHER, SELFPAY ==
[2022-04-04] VITALS (10 sets, daily range): BP systolic 109–147; BP diastolic 44–71; PULSE 69–76; RESP 14–19; TEMP 36.4–37.4; O2SAT 94–100; BMI 26.6
--- NOTE | 2022-04-04 09:03 | W.ANESPRE ---
General Info Date of Service Date Performed: 04/04/22 Height: 5 ft 9 in Weight: 81.647 kg Body Mass Index (BMI): 26.6 Surgical Procedure: Operation Date: 04/04/22 13:10 Proposed Procedure Side Surgeon p Cystoscopy/Laser/Retrograde/Ureteroscopy/ Possible Stent Placement Left Carlton Resendiz MD Meds Allergies and Home Medications Allergies Allergy/AdvReac Type Severity Reaction Status Date / Time No Known Allergies Allergy Verified 04/03/22 10:13 Home Medication Medication Instructions Recorded amlodipine 10 mg tablet 5 mg PO DAILY 10/25/14 omeprazole 20 mg capsule,delayed 40 mg PO DAILY AM 10/25/14 release furosemide 20 mg tablet 20 mg PO DAILY #0 tabs 07/17/21 albuterol sulfate 90 mcg/actuation 2 puff inhalation Q6H PRN 07/30/21 aerosol inhaler nitroglycerin 0.4 mg sublingual 0.4 mg sublingual Q5M PRN 07/30/21 tablet (Nitrostat) aspirin 81 mg tablet,delayed 81 mg PO DAILY 10/20/21 release atorvastatin 40 mg tablet 40 mg PO HS 10/20/21 calcium carbonate 500 mg-vitamin 2 tab PO DAILY 10/20/21 D3 5 mcg (200 unit) tablet (Calcium 500 + D) tiotropium bromide 2.5 2 puff inhalation DAILY 10/20/21 mcg/actuation mist for inhalation trazodone 100 mg tablet 300 mg PO HS 10/20/21 tamsulosin 0.4 mg capsule 0.4 mg PO DAILY AM 03/04/22 prednisone 20 mg tablet 40 mg PO DAILY #10 tabs 03/12/22 lidocaine 5 % topical patch 1 patch topical DAILY PRN pain #15 03/23/22 (Lidoderm) ea potassium chloride 20 mEq 10 meq PO DAILY 03/29/22 tablet,extended release Current Visit Medications: Current Medications Generic Name Dose Route Start Last Admin Trade Name Freq PRN Reason Stop Dose Admin Ringer's Solution 1,000 mls @ 80 mls/hr 04/04/22 06:00 IV 05/03/22 23:59 INFUSION KLEVER Cefazolin Sodium/Dextrose 2 gm in 50 mls @ 100 mls/hr 04/04/22 06:00 Ancef Duplex IVPB 04/04/22 16:00 PREOP KLEVER IV Miscellaneous Supplies 1 each 04/04/22 06:00 Iv Access IV 05/03/22 23:59 DIRECTED KLEVER Sodium Chloride 0 ml 04/04/22 06:00 Normal Saline Flush 10 Ml Syr IV 05/03/22 23:59 PRN PRN Sodium Chloride 0 ml 04/04/22 06:00 Normal Saline 10 Ml Vial IJ 05/03/22 23:59 DIRECTED PRN Sterile Water 0 ml 04/04/22 06:00 Water,Injection,Sterile 10 Ml Vial IJ 05/03/22 23:59 DIRECTED PRN PFSH Active Problems Active Problems: Problem Status Onset Code Community acquired pneumonia J18.9 COPD (chronic obstructive pulmonary disease) J44.9 Hypomagnesemia E83.42 Hyponatremia E87.1 Pancytopenia D61.818 Chest pain R07.9 Alcohol abuse F10.10 Dizziness R42 H/O alcohol abuse F10.11 Stenosis of right internal carotid artery I65.21 Peripheral vertigo of both ears H81.393 Orthostatic hypotension I95.1 Peripheral neuropathy G62.9 Thoracic vertebral fracture S22.009A Laceration of right thumb S61.011A Fracture of rib of left side S22.32XA Syncope R55 Pain R52 Hypertension I10 COPD exacerbation J44.1 Hallucinations R44.3 Intention tremor G25.2 Insomnia G47.00 Wernicke encephalopathy E51.2 Pneumonia J18.9 Acute exacerbation of chronic obstructive pulmonary disease (COPD) J44.1 Health insurance with [facility] [employer] DNR (do not resuscitate) Z66 Osteomyelitis of left foot M86.9 Anemia D64.9 B12 deficiency anemia D51.9 Sepsis A41.9 Acute UTI N39.0 Pneumonia due to COVID-19 virus U07.1, J12.82 Bandemia D72.825 Continuous tobacco abuse Z72.0 Weak R53.1 Left ureteral stone N20.1 Chest wall pain R07.89 Medical History Medical History (Updated 04/04/22 @ 12:16 by Carlton Resendiz MD) Alcohol abuse Per pt. 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, transfers independently Fracture of right hip pinning History of penile implant Hx of cholecystectomy Tobacco Smoking/Tobacco Use Status: Current every day Tobacco Type: cigars Alcohol Alcohol Intake: former Substance Use Substance use: Never Substance use type: does not use Vital Signs and Lab Results Vital Signs Most Recent Vital Signs in EMR: Temp Pulse Resp BP Pulse Ox 36.6 C 69 18 129/71 97 04/04/22 11:58 04/04/22 11:58 04/04/22 11:58 04/04/22 11:58 04/04/22 11:58 Lab Results Blood Type / Crossmatch: No Data to Display Complete Blood Count: White Blood Count 11.16 10^3/uL (4.4-10.8) H 03/22/22 21:42 Red Blood Count 3.72 10^6/uL (4.36-5.78) L 03/22/22 21:42 Hemoglobin 10.2 g/dL (13.5-17.5) L 03/22/22 21:42 Hematocrit 32.3 % (40.0-50.0) L 03/22/22 21:42 Platelet Count 195 10^3/uL (130-400) 03/22/22 21:42 Complete Metabolic Panel: Sodium 139 mmol/L (136-145) 03/22/22 21:42 Potassium 4.1 mmol/L (3.5-5.1) 03/22/22 21:42 Chloride 104 mmol/L (98-107) 03/22/22 21:42 Carbon Dioxide 29.4 mmol/L (21.0-32.0) 03/22/22 21:42 BUN 11 mg/dL (7-18) 03/22/22 21:42 Creatinine 0.8 mg/dL (0.70-1.30) 03/22/22 21:42 Est GFR (CKD-EPI 2020) 89.47 (mL/min/1.73m2) 03/22/22 21:42 Magnesium 2.0 mg/dL (1.8-2.4) 03/22/22 21:42 Calcium 8.4 mg/dL (8.5-10.1) L 03/22/22 21:42 Albumin 2.2 g/dL (3.4-5.0) L 03/22/22 21:42 Glucose 95 mg/dL (74-106) 03/22/22 21:42 C-Reactive Protein 3.41 mg/dL (0.0-0.3) H 03/09/22 07:30 Liver Function Panel: Alanine Aminotransferase (ALT/SGPT) 23 U/L (16-63) 03/22/22 21:42 Aspartate Amino Transf (AST/SGOT) 19 U/L (15-37) 03/22/22 21:42 Coagulation Panel: INR International Normalized Ratio 1.1 (0.9-1.1) 03/09/22 07:30 Prothrombin Time 11.1 sec (9.3-11.0) H 03/09/22 07:30 D-Dimer 2700 ng/mlFEU (<500) H 03/09/22 07:30 Cardiac Panel: Troponin I < 50 ng/L (<or=60) 03/23/22 Arterial Blood Gas: No Data to Display Venous Blood Gas: No Data to Display Pancreas Panel: No Data to Display Thyroid Panel: No Data to Display Infectious Disease: No Data to Display Blood Cultures: No Data to Display Toxicology Panel: No Data to Display Imaging and Studies Imaging and Studies Study information below may be from another EMR and interpreted by another provider. Please see original notes in EMR for more complete details. EKG Summary: 03/14: sinus, PACs. Echocardiogram Summary: 03/14: LVEF 63%, Aortic valve is severely thickened unable to assess for stenosis there is no doppler evidence of stenosis - but suspected, mild MR, mild-mod TR. RVSP 55 mmHg. 07/13: LVEF 55-60%, no WMA, aortic valve sclerotic without stenosis or regurgitation. trace TR. RVSP [address] Summary: 06/2020: near occlusion of right internal carotid. 50-70% stenosis left ICA. Carotid Artery Summary:: 12/2020: right side bulky irregular plaque 60-79% proximal ICA. right distal ICA is 50% stenosis. left side 50% stenosis. Anesthesia Assessment and Plan Anesthesia History Personal History: No History of Anesthesia Complications Family History: Family History Unknown Exercise Tolerance Exercise Tolerance: Metabolic Equivalents<4 Cardiac & Pulmonary Exam Cardiac Exam: Normal S1/S2 Heart Sounds Pulmonary Exam: Clear Bilateral Breath Sounds Implantable Cardiac Device Does patient have a Pacemaker or an ICD?: No Airway Exam Known Difficult Airway: No Mallampati Class: 3 Mouth Opening: Normal (> 3cm) Thyromental Distance: Greater than 3 cm Neck Range of Motion: Limited ROM Neck Circumference: Thick Teeth Condition: Edentulous ASA Classification ASA Score: ASA 3 Emergency Case?: No NPO Status NPO Status: NPO Clears >2 hours, Solids >8 hours Anesthesia Plan Resuscitation Status: DNR Fully Suspended During Perioperative Period Anesthesia Technique: General Anesthesia Airway Planned: LMA Monitors Used: Standard Monitors and Arterial Line (+/- arterial line. ) Preoperative Comments:: 82 yo male with extensive medical history for cysto due to ureteral stone leading to urosepsis. Previously he had a neph tube placed at the [place] under light sedation. Sig PMHx: COPD (albuterol, tiotropium), CAD (listed in [facility], but not seen in [facility], does have a NTG rx. On his last admission he did have a trop bump d/t strain retired to sepsis/uti, COVID, and COPD exacerbation), PVD (sig PVD, recent left BKA, sig carotid stenosis, other imaging with moderate occlusive LE dz), pHTN (55 mmHg), GERD (omeprazole), Cirrhosis (anna A, previous EtOH), HTN (amlodipine, furosemide), vertigo, cigar smoker. He was reached out to (by uro office [facility]uf[facility]) in regards to his being a poor candidate here at [facility] due to his carotid dz and multiple other comorbities. He has a very strong preference to having his procedure done here. Per uro office, the statement was made of i know I am high risk, I am a DNR/DNI, I just want to be done here. Today he again today talked with about how he is at a significantly elevated risk of stroke, MD, . He states that he does not want to go anywhere else, he verbalizes that he is at a very high risk but that he wants this done and wants it done here. He verbalizes also that he is willing to suspend his DNR for the procedure. Previous Anes: - 2012 masked with OPA, blade and view not documented. - 2015 TFNA, mac 4 grade 2 with bougie, masked with OPA. Plan: GA, +/- arterial line.
[2022-04-04 11:39] LABS: Source Nasal/Nares
--- NOTE | 2022-04-04 12:06 | W.PM.HP.N ---
Date of service: 04/04/22 Time of Service: 12:06 Assessment and Plan Assessment and plan (1) Left ureteral stone: Status: Acute Assessment and plan: We will plan to do a cystoscopy, left retrograde pyelogram, left ureteroscopy and treat his left ureteral stone. At the completion of the procedure, I should be able to remove his nephrostomy tube. We plan to admit him to the hospital overnight. We will resume his DNR status once the surgery is completed. History of Present Illness History of Present Illness Chief Complaint: Left ureteral stone Narrative: This is an 82-year-old gentleman who previously presented to the hospital with urosepsis. His blood and urine cultures grew Klebsiella. He was found to have a left proximal ureteral stone. A nephrostomy tube was placed to relieve his obstruction. He has completed his antibiotics and presents now for stone manipulation. He has a past history of kidney stones found on imaging studies. He has never required surgical treatments for stone disease. Since his discharge from the hospital, he believes he may have passed a small stone. He has a very significant history of vascular disease. He has required lower extremity amputation. He has a known carotid artery stenosis. We had suggested that he would be a better surgical candidate for a tertiary care facility given his high stroke risk. The patient has been adamant in telling us that he is not interested in having his procedure elsewhere. He is well aware of his increased stroke risk and is willing to accept the risk. He has told us that he is a DNR and would like to proceed with the surgery here. He told me that he would be willing to sign any paperwork authorizing the procedure to be done here. Review of Systems Narrative: No fevers or chills No vision change or dysphasia No diabetes or thyroid dysfunction Hx COPD. No hemoptysis No chest pain or palpitations Hx GERD. No nausea, vomiting, hepatitis, ulcers, jaundice Peripheral neuropathy. No seizures strokes No bleeding disorders or anemia No gout PFSH All Active Problems (Updated 04/04/22 @ 12:16 by Carlton Resendiz MD) Left ureteral stone (Acute) Community acquired pneumonia (Acute) COPD (chronic obstructive pulmonary disease) (Chronic) Hyponatremia (Chronic) Pancytopenia (Acute) Chest pain (Acute) Alcohol abuse (Chronic) Dizziness (Acute) Stenosis of right internal carotid artery (Acute) Peripheral vertigo of both ears (Acute) Orthostatic hypotension (Acute) Peripheral neuropathy (Chronic) Thoracic vertebral fracture (Acute) Laceration of right thumb (Acute) Fracture of rib of left side (Chronic) Syncope (Acute) Pain (Acute) Hypertension (Chronic) COPD exacerbation (Acute) Intention tremor (Chronic) Insomnia (Acute) Wernicke encephalopathy (Acute) Pneumonia (Acute) Health insurance with [facility] [employer] [facility] (Acute) DNR (do not resuscitate) (Acute) Osteomyelitis of left foot (Acute) Anemia (Chronic) B12 deficiency anemia (Acute) Sepsis (Acute) Acute UTI (Acute) Pneumonia due to COVID-19 virus (Acute) Bandemia (Acute) Continuous tobacco abuse (Chronic) Weak (Acute) Left ureteral stone (Acute) Chest wall pain (Acute) Medical History (Updated 04/04/22 @ 12:16 by Carlton Resendiz MD) Alcohol abuse Per pt. 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, transfers independently Fracture of right hip pinning History of penile implant Hx of cholecystectomy Social History Smoking/Tobacco Use Status: Current every day Tobacco Type: cigars Smoking risk assessment performed?: Yes Alcohol Intake: former Drug use: Never Substance use type: does not use Do you feel safe at home: Yes Do you feel safe in your relationship?: Yes Meds Allergies and Home Medications Allergies Allergy/AdvReac Type Severity Reaction Status Date / Time No Known Allergies Allergy Verified 04/03/22 10:13 Home Medications Medication Instructions Recorded Confirmed Type amlodipine 10 mg tablet 5 mg PO DAILY 10/25/14 04/04/22 History omeprazole 20 mg capsule,delayed 40 mg PO DAILY AM 10/25/14 04/04/22 History release furosemide 20 mg tablet 20 mg PO DAILY #0 tabs 07/17/21 04/04/22 Rx albuterol sulfate 90 mcg/actuation 2 puff inhalation Q6H PRN 07/30/21 04/04/22 History aerosol inhaler nitroglycerin 0.4 mg sublingual 0.4 mg sublingual Q5M PRN 07/30/21 03/29/22 History tablet (Nitrostat) aspirin 81 mg tablet,delayed 81 mg PO DAILY 10/20/21 04/04/22 History release atorvastatin 40 mg tablet 40 mg PO HS 10/20/21 04/04/22 History calcium carbonate 500 mg-vitamin 2 tab PO DAILY 10/20/21 04/04/22 History D3 5 mcg (200 unit) tablet (Calcium 500 + D) tiotropium bromide 2.5 2 puff inhalation DAILY 10/20/21 04/04/22 History mcg/actuation mist for inhalation trazodone 100 mg tablet 300 mg PO HS 10/20/21 04/04/22 History tamsulosin 0.4 mg capsule 0.4 mg PO DAILY AM 03/04/22 04/04/22 History prednisone 20 mg tablet 40 mg PO DAILY #10 tabs 03/12/22 04/04/22 Rx lidocaine 5 % topical patch 1 patch topical DAILY PRN pain #15 03/23/22 04/04/22 Rx (Lidoderm) ea potassium chloride 20 mEq 10 meq PO DAILY 03/29/22 04/04/22 History tablet,extended release Exam Const General: cooperative and comfortable Neck Neck: supple Resp Effort & Inspection: normal respiratory effort Auscultation: clear to auscultation bilaterally Other: decreased breath sounds Cardio Rate: regular rate Rhythm: regular rhythm GI Inspection: obesity Palpation: soft Neuro General: patient alert, patient awake and patient oriented x3 Extrem General: other (s/p left below knee amputation) Results Labs Labs: Laboratory Results - last 24 hr 04/04/22 11:30 COVID-19 Source Nasal/Nares Time Spent Time spent with Patient: <40 minutes Time was spent: counseling the patient and other
[2022-04-04] MEDS: Lactated Ringers 1,000 ML 80 ML IV ×2 (12:27→20:03)
--- NOTE | 2022-04-04 12:30 | DI.RAD_ITS ---
Exam(s) XR RETROGRADE IN OR EXAM: XR RETROGRADE IN OR CLINICAL HISTORY: Left ureteral stone TECHNIQUE: 2D and realtime digital imaging was performed. CONTRAST MATERIAL: Refer to procedure report. COMPARISON: No exams were available for comparison FINDINGS: Fluoroscopy was provided for Dr. Resendiz during the performance of a retrograde evaluation of the viv l collecting system. Please refer to the procedure report for complete details. Ka,r=7.9 mGy IMPRESSION: RADIATION DOSE DELIVERED:
[2022-04-04] MEDS: ceFAZolin 2 GM/50 ML BAG IVPB (13:06)
[2022-04-04] MEDS: Lidocaine 2% Jelly 6 ML SYR (13:29)
[2022-04-04] MEDS: Omnipaque 300 MG/ML 50 ML BTL (13:39)
--- NOTE | 2022-04-04 14:22 | ROE_ITS ---
Date of service: 04/04/22 Time of Service: 14:22 Operative Note Operative Note DATE OF PROCEDURE: 04/04/22 PRE-OP DIAGNOSIS: Left ureteral stone POST-OP DIAGNOSIS: same PROCEDURE: cystoscopy, left retrograde pyelogram, left flexible ureteroscopy, holmium laser lithotripsy of stone. stone extraction, insert left ureteral stent SURGEON: Carlton Resendiz ANESTHESIA TYPE: General LMA/ETT Refer to Anesthesia Record ESTIMATED BLOOD LOSS: 5 PATHOLOGY: other (stone for chemical analysis) Implants: 4.8 [place] by 22 to 30 cm left ureteral stent 16 kosovan muse catheter with 10 cc sterile water in catheter balloon Indications: This is an 82-year-old gentleman who was recently hospitalized with urosepsis. His blood and urine cultures both grew Klebsiella. He was found to have an obstructing left ureteral stone. He was treated with placement of a nephrostomy tube. He has completed his antibiotic courses. He presents now for ureteroscopy and stone treatment Findings: left proximal ureteral stone Procedure Description: He was given preoperative IV antibiotics. After successful induction of general anesthesia, he was placed in the dorsal lithotomy position. His genitalia was prepped and draped. To present Xylocaine jelly was instilled into the urethra to act as a local anesthetic. A 22 [place] rigid cystoscope was passed through the urethra into the bladder. The urethra and bladder were inspected with the 30 degree lens. The pendulous, bulbar and membranous urethra appeared normal with no strictures. The prostatic urethra showed some lateral lobe enlargement but no significant median lobe. The bladder neck was entered and the bladder mucosa was inspected. Left ureteral orifice was visualized and was cannulated with a 5 [place] access catheter. A retrograde pyelogram was obtained by injecting Omnipaque through the access catheter under fluoroscopic guidance. A filling defect was outlined in the proximal ureter. The filling defect corresponded to the previously identified ureteral stone. A Glidewire was then advanced through the lumen of the access catheter and the catheter was removed. A dual-lumen catheter was passed over the wire and a second wire was positioned. We chose one of the wires as a working wire and the other as a safety wire. I passed a ureteral access sheath over the working wire and positioned the sheath in the mid ureter. The flexible ureteroscope was then advanced through the ureteral access sheath and advanced up to the level of the stone. Once the stone was visualized, we treated the stone with a 365 holmium laser fiber. We used a setting of 0.8 with a rate of 8 to fragment the stone. The stone fragments were grasped in a 0 tip stone basket and removed. Each of the stone fragments was sent to pathology for chemical analysis. At the completion of the procedure, we passed a 4.8 [place] variable length stent over the safety wire. We positioned the stent with the proximal end in the renal pelvis and the distal end in the bladder. We left the safety string attached and brought the string through the urethra. We then passed a 16 [place] Muse catheter through the urethra into the bladder. We inflated the catheter balloon with 10 cc of sterile water. Catheter was hooked to gravity drainage. The safety string on the stent was taped to the outer aspect of the Muse catheter. We will remove the catheter in the stent tomorrow morning. I then removed the nephrostomy tube. He tolerated the procedure well with no complications. He was taken to the recovery room in stable condition.
--- NOTE | 2022-04-04 14:56 | W.ANESPOSTOP ---
Postoperative Evaluation Date, Time and Location Date Performed: 04/04/22 Time Performed: 14:56 Patient Location: PACU Vital Signs Most Recent Imported Vital Signs: Most Recent Vital Signs Temp Pulse Resp BP Pulse Ox 36.4 C L 76 19 122/52 L 96 04/04/22 14:50 04/04/22 14:50 04/04/22 14:50 04/04/22 14:50 04/04/22 14:50 Pain Score Most Recent Pain Score: Most Recent Pain Score Pain Level 0 04/04/22 11:58 Assessment Mental Status: Awake (Alert & Oriented to Patient Baseline) Airway and Respiratory Function: Patent airway with normal (patient baseline) respiratory exam Cardiovascular Function: Hemodynamically Stable Hydration Status: Adequately Hydrated Nausea & Vomiting: No Nausea or Vomiting Pain: Pain is tolerable per patient Peripheral Nerve Block: Patient did not receive a nerve block
[2022-04-04 15:53] LABS: COVID-19 PCR POSITIVE (Negative)
[2022-04-04] MEDS: ceFAZolin 1 GM/50 ML BAG IVPB (19:56)
[2022-04-04] MEDS: Atorvastatin 40 MG TAB PO (21:59)
[2022-04-04] MEDS: traZODone 100 MG TAB 300 MG PO (22:00)
[2022-04-05] MEDS: ceFAZolin 1 GM/50 ML BAG IVPB (04:37)
--- NOTE | 2022-04-05 07:41 | W.PM.PROGNOT ---
Date of Service Date of service: 04/05/22 Time of Service: 07:41 Assessment and Plan Assessment and plan (1) Left ureteral stone: Status: Acute Assessment and plan: Follow-up is drains (nephrostomy tube, ureteral stent and Kingsley catheter) have been removed this morning. We will watch and make sure he does not have significant ureteral spasms (which would be likely respond to IV Toradol). As long as he is doing well, we will discharge him to home later today. Subjective Subjective Interval history since last seen: He had some catheter discomfort overnight, but no fever or chills. He had no clot retention. He has been able to tolerate oral nutrition and medications. Exam Narrative Exam Narrative: He looks comfortable this morning His vital signs are documented elsewhere His urine is clear in the catheter bag He is awake and alert I successfully removed his Kingsley catheter in the attached ureteral stent Objective Last Vital Signs Temp 37.4 C 04/04/22 23:39 Pulse 70 04/04/22 23:39 Resp 16 04/04/22 23:39 BP 118/60 04/04/22 23:39 Pulse Ox 95 04/04/22 23:39 Laboratory Results - last 24 hr 04/04/22 11:30 COVID-19 Source Nasal/Nares SARS-CoV-2 (PCR) POSITIVE A* Time Spent with Patient Time Spent with Patient: <25 minutes Time was spent: counseling the patient
[2022-04-05] MEDS: Tamsulosin 0.4 MG CAPCR PO (07:47)
[2022-04-05] MEDS: Aspirin E.C. 81 MG TABEC PO (07:47)
[2022-04-05] MEDS: Potassium Chloride 10 MEQ TABCR PO (07:48)
[2022-04-05] MEDS: Furosemide 20 MG TAB PO (07:48)
[2022-04-05] MEDS: Calcium 600mg/Vit D 200U TAB 1 TAB PO (07:48)
[2022-04-05] MEDS: amLODIPine 5 MG TAB PO (07:48)
[2022-04-05] MEDS: Omeprazole 20 MG CAPCR 40 MG PO (07:54)
[2022-04-05 08:14] VITALS: BP 133/63; PULSE 84; RESP 18; TEMP 36.9; O2SAT 94
[2022-04-05] MEDS: Lactated Ringers 1,000 ML 80 ML IV (09:09)
--- NOTE | 2022-04-05 09:45 | PDOC.CMIN ---
- If Service Date Differs Date of service: 04/05/22 Time of Service: 09:45 Care Management Initial Assess REASON FOR HOSPITALIZATION:: Left ureteral stone PAST MEDICAL HISTORY/PAST SURGICAL HISTORY:: All Active Problems (Updated 04/04/22 @ 12:16 by Carlton Resendiz MD). Left ureteral stone (Acute). Community acquired pneumonia (Acute). COPD (chronic obstructive pulmonary disease) (Chronic). Hyponatremia (Chronic). Pancytopenia (Acute). Chest pain (Acute). Alcohol abuse (Chronic). Dizziness (Acute). Stenosis of right internal carotid artery (Acute). Peripheral vertigo of both ears (Acute). Orthostatic hypotension (Acute). Peripheral neuropathy (Chronic). Thoracic vertebral fracture (Acute). Laceration of right thumb (Acute). Fracture of rib of left side (Chronic). Syncope (Acute). Pain (Acute). Hypertension (Chronic). COPD exacerbation (Acute). Intention tremor (Chronic). Insomnia (Acute). Wernicke encephalopathy (Acute). Pneumonia (Acute). Health insurance with [employer] (Acute). DNR (do not resuscitate) (Acute). Osteomyelitis of left foot (Acute). Anemia (Chronic). B12 deficiency anemia (Acute). Sepsis (Acute). Acute UTI (Acute). Pneumonia due to COVID-19 virus (Acute). Bandemia (Acute). Continuous tobacco abuse (Chronic). Weak (Acute). Left ureteral stone (Acute). Chest wall pain (Acute). Medical History (Updated 04/04/22 @ 12:16 by Carlton Resendiz MD). Alcohol abuse. Per pt. states he hasnt drank for 2 years. GERD (gastroesophageal reflux disease). HTN (hypertension). Hx of hyperlipidemia. Orthostatic hypotension. Stenosis of both internal carotid arteries. Vertigo. Surgical History . Amputation of left lower extremity. in wheelchair, transfers independently. Fracture of right hip. pinning. History of penile implant. Hx of cholecystectomy PREVIOUS FUNCTIONAL STATUS/SOCIAL/FAMILY SUPPORTS:: Tyler lives alone in [address] in [place] Tyler is retired but worked 50 years in the [employer]. He has lots of friends who are supportive of him but does not have any family locally. Tyler is independent with his ADLs at baseline. ADVANCE DIRECTIVES:: None on file; patient declines Advance Directives. Has patient been provided with info about the portal/API?: Yes Did the patient sign up for the portal?: No CODE STATUS:: DNR/DNI INSURANCE COVERAGE / FINANCIAL ISSUES:: Medicare A&B. [employer] CURRENT HOME/COMMUNITY SERVICES/EQUIPMENT:: uses cane/walker. [facility] SN/PT PRIMARY CARE PHYSICIAN:: Dr. Brad Morrow ([place]) POTENTIAL DISCHARGE NEEDS:: Outpatient follow up appointments with Urology and VA providers, resumption of [facility] services and discharge plan of care. PATIENT/FAMILY EDUCATION NEEDS:: Review discharge instructions, limitations, medications and plan to follow up with community providers. Discuss Ask Me Three and goals of self care. TRANSPORTATION:: RCT W/C van PLAN:: Anticipate Tyler will discharge home via RCT w/c van when medically ready per Dr. Resendiz. He will follow up with community/[facility] providers and resume [facility] RN/PT services and follow discharge plan of care as prescribed. CM will continue to follow.
--- NOTE | 2022-04-05 10:07 | W.PM.DS.N ---
Date of service: 04/05/22 Time of Service: 10:07 DS: Diagnosis Discharge Diagnosis (1) Left ureteral stone: Status: Acute Discharge Plan Disposition Patient Disposition: Home Condition: Stable Discharge Details Reason For Visit: left ureteral stone Admit Date/Time: 04/04/22 11:14 Admit Provider: Carlton Resendiz Attending Provider: Carlton Resendiz Primary Care Provider: Brad Morrow Hospital Course Hospital Course: The patient was admitted and taken to the operating room on 04/04/2022. He underwent left ureteroscopy with holmium laser lithotripsy of his left proximal ureteral stone. Once the stone fragments had been removed, I placed a left ureteral stent and removed his nephrostomy tube. He remained in the hospital overnight for observation. He remained afebrile and uncomfortable. I removed his ureteral stent and Kingsley catheter on postoperative day #1. He has no significant ureteral spasms after the stent was removed. He is ready for discharge on postoperative day #1. Home Meds and New Rx's Prescriptions: No Action nitroglycerin [Nitrostat] 0.4 mg tablet, sublingual 0.4 mg Sublingual Q5M PRN Label Comments: doesn't have chest pain Rx Instructions: for chest pain amlodipine 10 MG tablet 5 mg PO DAILY omeprazole 20 MG capsule,delayed release(DR/EC) 40 mg PO DAILY AM Label Comments: Pt. states that he doesn't take this medication. albuterol sulfate 90 mcg/actuation HFA aerosol inhaler 2 puff INHALATION Q6H PRN aspirin 81 mg Tablet,Delayed Release (Dr/Ec) 81 mg PO DAILY atorvastatin 40 mg Tablet 40 mg PO HS calcium carbonate-vitamin D3 [Calcium 500 + D] 500 mg-5 mcg (200 unit) Tablet 2 tab PO DAILY tiotropium bromide 2.5 mcg/actuation Mist 2 puff INHALATION DAILY trazodone 100 mg Tablet 300 mg PO HS tamsulosin 0.4 mg capsule 0.4 mg PO DAILY AM furosemide 20 mg Tablet 20 mg PO DAILY Qty: 0 0RF lidocaine [Lidoderm] 5 % adhesive patch,medicated 1 patch TP DAILY PRN (Reason: pain) Qty: 15 0RF Rx Instructions: leave on most painful area for up to 12 hrs potassium chloride 20 mEq tablet extended release 10 meq PO DAILY Discharge Instructions Additional Instructions: Follow up appointment in my office for renal ultrasound in about 6 to 8 weeks Activity:: Activity as Tolerated Equipment/Supplies:: No Equipment Needed Diet:: As Tolerated Discharge Orders Discharge Orders: Discharge Order (Routine); Ordered 04/05/22 Ordered By: Carlton Resendiz Discharge Data Discharge Comment: We will need to arrange RCT transportation home DS: Summary Time Spent with Patient providing and/or coordinating discharge services: Less than 30 minutes Status at Discharge Functional status at discharge: wheelchair bound Overall status at discharge: patient is back to baseline Mental Status: mental status grossly normal Speech and Movement: speech and movement normal Mood: congruent mood Affect: normal affect Exam Narrative Exam Narrative: At the discharge, he appears comfortable. His vital signs are documented elsewhere in this chart His chest wall motion is normal. He is not short of breath at rest. His abdomen is soft with no guarding or rebound tenderness He is awake and alert Psych Mental Status: mental status grossly normal Speech and Movement: speech and movement normal Mood: congruent mood Affect: normal affect DS: Data Vitals/I&O Vitals and I&O: Vital Signs Temperature 36.9 C 04/05/22 08:14 Temperature Source Tympanic 04/05/22 08:14 Pulse 84 04/05/22 08:14 Pulse Rhythm Regular 04/05/22 08:58 Respiratory Rate 18 04/05/22 08:14 Respiratory Effort Non-Labored 04/05/22 08:58 Respiratory Depth Normal 04/05/22 08:58 Respiratory Pattern Normal 04/05/22 08:58 Blood Pressure 133/63 04/05/22 08:14 Pulse Oximetry 94 04/05/22 08:14 Respiratory End-tidal CO2 39 04/04/22 15:20 Oxygen Delivery Method Room Air 04/05/22 08:14 Oxygen Flow Rate 0 04/05/22 08:14 Pain Level 0 04/05/22 08:58 Intake & Output 04/04/22 04/04/22 04/05/22 11:59 23:59 11:59 Intake Total 1256.667 / 2695.568 7780 / 1000 Output Total 350 / 350 Balance 906.667 / 516.254 0821 / 1000 Weight 81.647 kg Intake: IV 1016.667 / 3343.785 9451 / 1000 Oral 240 / 240 Output: Urine 350 / 350 Other: Urine Color Dark [place] Urine Appearance Cloudy Clear Stool Size Small Stool Characteristics Formed Hard Brown Emesis Description None Data Completed and Pending Labs on day of discharge: Labs from last 24 hours 04/04/22 04/04/22 13:56 11:30 Stone Source Pending Stone Comment Pending Kidney Stone Analysis Pending COVID-19 Source Nasal/Nares SARS-CoV-2 (PCR) POSITIVE A* PFSH All Active Problems Left ureteral stone (Acute) Community acquired pneumonia (Acute) COPD (chronic obstructive pulmonary disease) (Chronic) Hyponatremia (Chronic) Pancytopenia (Acute) Chest pain (Acute) Alcohol abuse (Chronic) Dizziness (Acute) Stenosis of right internal carotid artery (Acute) Peripheral vertigo of both ears (Acute) Orthostatic hypotension (Acute) Peripheral neuropathy (Chronic) Thoracic vertebral fracture (Acute) Laceration of right thumb (Acute) Fracture of rib of left side (Chronic) Syncope (Acute) Pain (Acute) Hypertension (Chronic) COPD exacerbation (Acute) Intention tremor (Chronic) Insomnia (Acute) Wernicke encephalopathy (Acute) Pneumonia (Acute) Health insurance with [employer] (Acute) DNR (do not resuscitate) (Acute) Osteomyelitis of left foot (Acute) Anemia (Chronic) B12 deficiency anemia (Acute) Sepsis (Acute) Acute UTI (Acute) Pneumonia due to COVID-19 virus (Acute) Bandemia (Acute) Continuous tobacco abuse (Chronic) Weak (Acute) Left ureteral stone (Acute) Chest wall pain (Acute) Medical History Alcohol abuse Per pt. 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, transfers independently Fracture of right hip pinning History of penile implant Hx of cholecystectomy Social History Smoking/Tobacco Use Status: Current every day Tobacco Type: cigars Smoking risk assessment performed?: Yes Alcohol Intake: former Drug use: Never Substance use type: does not use Do you feel safe at home: Yes Do you feel safe in your relationship?: Yes Time Spent with Patient Time Spent with Patient: <45 minutes Time was spent: counseling the patient
--- NOTE | 2022-04-05 11:58 | W.PM.DS.N ---
Date of service: 04/05/22 Time of Service: 11:59 DS: Diagnosis Discharge Diagnosis (1) Left ureteral stone: Status: Acute Discharge Plan Disposition Patient Disposition: Home Condition: Stable Discharge Details Reason For Visit: Left reteral stone Admit Date/Time: 04/04/22 11:14 Admit Provider: Carlton Resendiz Attending Provider: Carlton Resendiz Primary Care Provider: Brad Morrow Hospital Course Hospital Course: The patient was admitted and taken to the operating room on 04/04/2022. He underwent left ureteroscopy with holmium laser lithotripsy of his left proximal ureteral stone. Once the stone fragments had been removed, I placed a left ureteral stent and removed his nephrostomy tube. He remained in the hospital overnight for observation. He remained afebrile and uncomfortable. I removed his ureteral stent and Kingsley catheter on postoperative day #1. He has no significant ureteral spasms after the stent was removed. He is ready for discharge on postoperative day #1. Home Meds and New Rx's Prescriptions: No Action nitroglycerin [Nitrostat] 0.4 mg tablet, sublingual 0.4 mg Sublingual Q5M PRN Label Comments: doesn't have chest pain Rx Instructions: for chest pain amlodipine 10 MG tablet 5 mg PO DAILY omeprazole 20 MG capsule,delayed release(DR/EC) 40 mg PO DAILY AM Label Comments: Pt. states that he doesn't take this medication. albuterol sulfate 90 mcg/actuation HFA aerosol inhaler 2 puff INHALATION Q6H PRN aspirin 81 mg Tablet,Delayed Release (Dr/Ec) 81 mg PO DAILY atorvastatin 40 mg Tablet 40 mg PO HS calcium carbonate-vitamin D3 [Calcium 500 + D] 500 mg-5 mcg (200 unit) Tablet 2 tab PO DAILY tiotropium bromide 2.5 mcg/actuation Mist 2 puff INHALATION DAILY trazodone 100 mg Tablet 300 mg PO HS tamsulosin 0.4 mg capsule 0.4 mg PO DAILY AM furosemide 20 mg Tablet 20 mg PO DAILY Qty: 0 0RF lidocaine [Lidoderm] 5 % adhesive patch,medicated 1 patch TP DAILY PRN (Reason: pain) Qty: 15 0RF Rx Instructions: leave on most painful area for up to 12 hrs potassium chloride 20 mEq tablet extended release 10 meq PO DAILY Discharge Instructions Additional Instructions: Follow up appointment in my office for renal ultrasound in about 6 to 8 weeks Please resume home health services Activity:: Activity as Tolerated Equipment/Supplies:: No Equipment Needed Diet:: As Tolerated Discharge Orders Discharge Orders: Discharge Order (Routine); Ordered 04/05/22 Ordered By: Carlton Resendiz Discharge Data Discharge Comment: We will need to arrange RCT transportation home DS: Summary Time Spent with Patient providing and/or coordinating discharge services: Less than 30 minutes Status at Discharge Functional status at discharge: wheelchair bound Overall status at discharge: patient is back to baseline Mental Status: mental status grossly normal Speech and Movement: speech and movement normal Mood: congruent mood Affect: normal affect Exam Psych Mental Status: mental status grossly normal Speech and Movement: speech and movement normal Mood: congruent mood Affect: normal affect DS: Data Vitals/I&O Vitals and I&O: Vital Signs Temperature 36.9 C 04/05/22 08:14 Temperature Source Tympanic 04/05/22 08:14 Pulse 84 04/05/22 08:14 Pulse Rhythm Regular 04/05/22 08:58 Respiratory Rate 18 04/05/22 08:14 Respiratory Effort Non-Labored 04/05/22 08:58 Respiratory Depth Normal 04/05/22 08:58 Respiratory Pattern Normal 04/05/22 08:58 Blood Pressure 133/63 04/05/22 08:14 Pulse Oximetry 94 04/05/22 08:14 Respiratory End-tidal CO2 39 04/04/22 15:20 Oxygen Delivery Method Room Air 04/05/22 08:14 Oxygen Flow Rate 0 04/05/22 08:14 Pain Level 0 04/05/22 08:58 Intake & Output 04/04/22 04/04/22 04/05/22 11:59 23:59 11:59 Intake Total 1256.667 / 3414.374 8518.333 / 1109.333 Output Total 350 / 350 100 / 100 Balance 906.667 / 956.334 4244.333 / 1009.333 Weight 81.647 kg Intake: IV 1016.667 / 6598.753 3530.333 / 1109.333 Oral 240 / 240 Output: Urine 350 / 350 100 / 100 Other: Urine Color Dark Bell Yellow [employer] Urine Appearance Cloudy Clear Urine Odor None Comment pT stated that when he used the urinal he got some on the bed. Stool Size Small Stool Characteristics Formed Hard Brown Emesis Description None Voiding Methods Diaper Incontinent Data Completed and Pending Labs on day of discharge: Labs from last 24 hours 04/04/22 04/04/22 13:56 11:30 Stone Source Pending Stone Comment Pending Kidney Stone Analysis Pending SARS-CoV-2 (PCR) POSITIVE A* PFSH All Active Problems Left ureteral stone (Acute) Community acquired pneumonia (Acute) COPD (chronic obstructive pulmonary disease) (Chronic) Hyponatremia (Chronic) Pancytopenia (Acute) Chest pain (Acute) Alcohol abuse (Chronic) Dizziness (Acute) Stenosis of right internal carotid artery (Acute) Peripheral vertigo of both ears (Acute) Orthostatic hypotension (Acute) Peripheral neuropathy (Chronic) Thoracic vertebral fracture (Acute) Laceration of right thumb (Acute) Fracture of rib of left side (Chronic) Syncope (Acute) Pain (Acute) Hypertension (Chronic) COPD exacerbation (Acute) Intention tremor (Chronic) Insomnia (Acute) Wernicke encephalopathy (Acute) Pneumonia (Acute) Health insurance with [employer] Affairs (Acute) DNR (do not resuscitate) (Acute) Osteomyelitis of left foot (Acute) Anemia (Chronic) B12 deficiency anemia (Acute) Sepsis (Acute) Acute UTI (Acute) Pneumonia due to COVID-19 virus (Acute) Bandemia (Acute) Continuous tobacco abuse (Chronic) Weak (Acute) Left ureteral stone (Acute) Chest wall pain (Acute) Medical History Alcohol abuse Per pt. 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
--- NOTE | 2022-04-05 12:40 | CMDISCH_ITS ---
- If Service Date Differs Date of service: 04/05/22 Time of Service: 12:40 LACE Index Scoring Tool - Questions: Length of Stay (in days): 1 Acuity (Admit via E.D.?): No E.D. Visits: 5 - Answers: Total Score: 5 Risk of Readmission: Low Risk Care Management Discharge Reason for Hospitalization: Left ureteral stone Discharge Plan: Tyler is discharged home with resumption of [facility] services via RCT wheelchair van. Tyler will follow up with community providers and discharge plan of care as prescribed. Patient/Family Education Needs: Review discharge instructions, limitations, medications and plan to follow up with community providers. Discuss Ask Me Th ree and goals of self care. Services Needed at Discharge: Home Health Care Services (Resume [facility] RN/PT services. CM notified [facility].), Transportation ([facility] W/C van, coordinated by MARCUS)
[2022-04-12 15:26] LABS: Source: Left Ureter
== END 2022-04-05 13:08 | disposition home or self-care (01) ==
LOC: PDS 11:19 → MS 15:44 → PDS 17:35
PROVIDERS: Admitting Provider Urology; PCP Internal Medicine; Visit Provider Urology
PROC: (CPT 52356; principal; 2022-04-04 13:00)
DX: N20.1 Calculus of ureter (principal); K21.9 Gastro-esophageal reflux disease without esophagitis; U07.1 COVID-19; I10 Essential (primary) hypertension; E87.1 Hypo-osmolality and hyponatremia; E78.5 Hyperlipidemia, unspecified; I95.1 Orthostatic hypotension; I65.23 Occlusion and stenosis of bilateral carotid arteries; F17.210 Nicotine dependence, cigarettes, uncomplicated; J44.9 Chronic obstructive pulmonary disease, unspecified; Z66 Do not resuscitate; G62.9 Polyneuropathy, unspecified; F10.11 Alcohol abuse, in remission
CPT/HCPCS: 52356; 87635; 96365; 74420; 82365; G0378; J0690; J1100; J2405; J2704; Q9967

== ENCOUNTER 2022-06-10 15:41 | Emergency (ER) | payer OTHER, SELFPAY ==
[2022-06-10] VITALS (11 sets, daily range): BP systolic 98–115; BP diastolic 42–74; PULSE 71–91; RESP 13–37; TEMP 36.9–37.2; O2SAT 93–97
--- NOTE | 2022-06-10 15:58 | W.ED.GENAD ---
Discharge Plan Disposition Patient Disposition: Home Condition: Stable Discharge Details Clinical Impression: Prostatitis Primary Care Provider: Brad Morrow ED Provider: Dafen Murphy Home Meds and New Rx's Prescriptions: Continued nitroglycerin [Nitrostat] 0.4 mg tablet, sublingual 0.4 mg Sublingual Q5M PRN Patient Comments: doesn't have chest pain Rx Instructions: for chest pain amlodipine 10 MG tablet 5 mg PO DAILY omeprazole 20 MG capsule,delayed release(DR/EC) 40 mg PO DAILY AM Patient Comments: Pt. states that he doesn't take this medication. albuterol sulfate 90 mcg/actuation HFA aerosol inhaler 2 puff INHALATION Q6H PRN aspirin 81 mg Tablet,Delayed Release (Dr/Ec) 81 mg PO DAILY atorvastatin 40 mg Tablet 40 mg PO HS calcium carbonate-vitamin D3 [Calcium 500 + D] 500 mg-5 mcg (200 unit) Tablet 2 tab PO DAILY tiotropium bromide 2.5 mcg/actuation Mist 2 puff INHALATION DAILY trazodone 100 mg Tablet 300 mg PO HS tamsulosin 0.4 mg capsule 0.4 mg PO DAILY AM furosemide 20 mg Tablet 20 mg PO DAILY Qty: 0 0RF lidocaine [Lidoderm] 5 % adhesive patch,medicated 1 patch TP DAILY PRN (Reason: pain) Qty: 15 0RF Rx Instructions: leave on most painful area for up to 12 hrs potassium chloride 20 mEq tablet extended release 10 meq PO DAILY No Action magnesium 250 mg tablet 250 mg PO DAILY Qty: 10 0RF Discharge Instructions Instructions: Levofloxacin (By mouth), Prostatitis (ED) Additional Instructions: I am concerned that you have an infection in your prostate known as prostatitis. Dr. Resendiz believes this may be associated with your previous procedures with him. Please encourage hydration. Please take the antibiotics as prescribed, this will be once a day for the next 14 days. Your home with enough levofloxacin until [facility] are [facility] Please also call Dr. Resendiz's office tomorrow to schedule follow-up appointment, he would like to see you in 1 week. If you develop fever/chills, inability stay hydrated, back pain or other new/worsening symptoms and seek care urgently once again. Referrals: Carlton Resendiz MD [ [facility] STAFF PHYSICIAN] - Brad Morrow [Primary Care Provider] - Discharge Data Discharge Date/Time-TO BE ENTERED AT DEPARTURE: 06/10/22 23:18 Medical Decision Making Patient is a pleasant 82-year-old male brought in via EMS with chief complaint of weakness. Past medical history is pertinent for pneumonia, COPD, pancytopenia, alcohol abuse, peripheral vertigo, orthostatic hypotension, peripheral neuropathy, hypertension, Warnicke encephalopathy. He states that he has been feeling well since his COVID diagnosis in February. However, about 3 weeks ago he began noting a decrease in his appetite and states that aside from a bowl of cereal he has had no p.o. intake in over 2 weeks. He is not sure if he is lost any weight. He denies any fevers or chills. Denies any cough. He does endorse some shortness of breath. He states that he did feel weak this morning and fell in the bathroom prompting firefighters to come and assist him to get out from The toilet. During the fall, he states that he did suffer injury to the left side of his chest. He denies any shortness of breath aside from his chronic but does state that he has some increased discomfort with deep inspiration. No recent medication changes. No fevers or chills. On exam, patient is appears nontoxic. He does appear fatigued. Patient is hemodynamically stable. Differential is quite broad at this time. Symptoms may be associated with electrolyte abnormality, ACS, depression, versus other. With the patient's general symptoms, weakness, chest discomfort, consider potential PE. D-dimer elevated, will move forward with CTA. Labs reviewed. Patient has a leukocytosis with a white count of 16.5. He is anemic with a hemoglobin of 11.4 which is stable for the patient. His D-dimer is elevated as noted above 2000, will obtain CTA. CMP significant for elevated alk phos, this has been elevated historically. Lipase within normal limits. FINDINGS: Pulmonary arteries: Normal. No pulmonary emboli. Aorta: Moderate atherosclerotic calcification noted throughout the aorta. No evidence of thoracic aortic aneurysm or dissection. Lungs: Moderate changes of emphysema noted throughout both lungs. There is chronic appearing parenchymal scarring in the lingula. No significant active pulmonary infiltrate. Pleural spaces: Scattered calcified pleural plaques throughout both sides of the chest appear similar to previous. No significant pleural fluid. No pneumothorax. Heart: Unremarkable. No cardiomegaly. No pericardial effusion. Lymph nodes: Unremarkable. No enlarged lymph nodes. Kidneys and ureters: Multiple bilateral renal cysts noted in the upper abdomen. Bones/joints: Moderate degenerative disc changes in syndesmophyte as well as osteophyte formation noted throughout the thoracic spine. There is accentuated thoracic kyphosis. No acute fracture. Soft tissues: Unremarkable. IMPRESSION: No evidence of pulmonary embolus or other acute abnormality in the chest.? Chronic appearing findings as noted. Urinalysis is concerning for infection. This did prompt a rectal exam. Patient is not having any urinary symptoms. He has not had this historically. JUAN was performed with supervision. Prostate is enlarged and slightly boggy. Mild tenderness elicited. We will begin the patient on antibiotics. Consulted with Dr. Resendiz. He advised hilary Lord would work just as well PO as IV. We specifically discussed in patient vs. outpatient treatment. He advised thismay be d/t previous instrumentation He is happy to follow-up with him in the clinic. He advised the patient would be eligible for outpatient management and patient expressed want to go home earlier in the visit. I discussed ultimate disposition. Patient prefers to be at home. His primary concern is transportation. We were able to speak with EMS and given his not too distant amputation, will send him back via EMS and ensure that he is able to get set up at home okay. We will also send him home with enough levofloxacin to be able to have until [facility]. I also encouraged that he call Dr. Resendiz tomorrow to schedule follow-up appointment in 1 week as was the recommendation by Dr. Resendiz. Patient started on antibiotics. As he typically gets a male in prescriptions, will send home a few days of antibiotics. Encourage hydration. Strict return precautions were discussed. I encouraged trying to reduce passage is much as possible in the home to prevent falls. He will call Dr. Resendiz to schedule follow-up appointment. We have also asked her care management team to assist with ensuring follow-up. All of his questions and concerns were addressed and he is in agreement this plan. HPI General Date/Time Provider Initiated Documentation: 06/10/22 15:58. Limitations to Documentation: no limitations. Information obtained by: patient, EMS, RN notes reviewed and old records reviewed. History of Present Illness 82 year old M presents to the emergency department with the chief complaint of weakness, described as moderate, Quality is described as aching, and is localized to the chest (mild left sided CP after fall today). Patient reports no radiation. Patient started experiencing this day(s) (1) and it has been constant. No relieving factors improve symptom(s), Other factors that worsen symptoms (pressure applied on the chest wall) . Patient notes no other symptoms.. Patient did receive the following treatments prior to arrival, none Related Data Home Medications Medication Instructions Recorded Confirmed amlodipine 10 mg tablet 5 mg PO DAILY 10/25/14 06/17/22 omeprazole 20 mg capsule,delayed 40 mg PO DAILY AM 10/25/14 06/17/22 release furosemide 20 mg tablet 20 mg PO DAILY #0 tabs 07/17/21 06/17/22 albuterol sulfate 90 mcg/actuation 2 puff inhalation Q6H PRN 07/30/21 06/17/22 aerosol inhaler nitroglycerin 0.4 mg sublingual 0.4 mg sublingual Q5M PRN 07/30/21 06/17/22 tablet (Nitrostat) aspirin 81 mg tablet,delayed 81 mg PO DAILY 10/20/21 06/17/22 release atorvastatin 40 mg tablet 40 mg PO HS 10/20/21 06/17/22 calcium carbonate 500 mg-vitamin 2 tab PO DAILY 10/20/21 06/17/22 D3 5 mcg (200 unit) tablet (Calcium 500 + D) tiotropium bromide 2.5 2 puff inhalation DAILY 10/20/21 06/17/22 mcg/actuation mist for inhalation trazodone 100 mg tablet 300 mg PO HS 10/20/21 06/17/22 tamsulosin 0.4 mg capsule 0.4 mg PO DAILY AM 03/04/22 06/17/22 lidocaine 5 % topical patch 1 patch topical DAILY PRN pain #15 03/23/22 06/17/22 (Lidoderm) ea potassium chloride 20 mEq 10 meq PO DAILY 03/29/22 06/17/22 tablet,extended release magnesium 250 mg tablet 250 mg PO DAILY #10 tabs 06/12/22 06/17/22 Previous Rx's Medication Instructions Recorded furosemide 20 mg tablet 20 mg PO DAILY #0 tabs 07/17/21 lidocaine 5 % topical patch 1 patch topical DAILY PRN pain #15 12/31/22 (Lidoderm) ea magnesium 250 mg tablet 250 mg PO DAILY #10 tabs 06/12/22 Allergies Allergy/AdvReac Type Severity Reaction Status Date / Time No Known Allergies Allergy Verified 06/17/22 21:27 General Stated Complaint: GenMedical EDITH: 3 Review of Systems Constitutional Constitutional: Reports as per HPI, Denies chills, Denies fever(s), Denies headache(s), Denies lethargy and Denies poor appetite Eyes Eyes: Denies change in vision ENT Ears, Nose, Mouth, and Throat: Denies dizziness and Denies headache(s) Cardiovascular Cardiovascular: Reports as per HPI Respiratory Respiratory: Reports as per HPI, Denies chest congestion, Denies cough, Denies pain on inspiration and Denies pain with cough Gastrointestinal Gastrointestinal: Reports as per HPI, Denies abdominal pain, Denies diarrhea, Denies nausea and Denies vomiting Genitourinary Genitourinary: Denies system reviewed and no additional complaints, except as documented (denies change in urinary habits) Musculoskeletal Musculoskeletal: Reports as per HPI and Denies back pain Integumentary/Breasts Skin/Breast: Reports as per HPI and Denies rash Neurologic Neurologic: Reports as per HPI, Denies dizziness and Denies headache(s) PFSH All Active Problems (Updated 06/17/22 @ 23:56 by Rosario Almendarez DO) Prostatitis (Acute) Anorexia (Acute) Acute urinary retention (Acute) Chest pain (Acute) UTI (urinary tract infection) (Acute) Lower urinary tract symptoms (LUTS) (Acute) Community acquired pneumonia (Acute) COPD (chronic obstructive pulmonary disease) (Chronic) Hyponatremia (Chronic) Pancytopenia (Acute) Chest pain (Acute) Alcohol abuse (Chronic) Dizziness (Acute) Stenosis of right internal carotid artery (Acute) Peripheral vertigo of both ears (Acute) Orthostatic hypotension (Acute) Peripheral neuropathy (Chronic) Thoracic vertebral fracture (Acute) Laceration of right thumb (Acute) Fracture of rib of left side (Chronic) Syncope (Acute) Pain (Acute) Hypertension (Chronic) COPD exacerbation (Acute) Intention tremor (Chronic) Insomnia (Acute) Wernicke encephalopathy (Acute) Pneumonia (Acute) Health insurance with [facility] (Acute) DNR (do not resuscitate) (Acute) Osteomyelitis of left foot (Acute) Anemia (Chronic) B12 deficiency anemia (Acute) Sepsis (Acute) Acute UTI (Acute) Continuous tobacco abuse (Chronic) Weak (Acute) Left ureteral stone (Acute) Medical History Alcohol abuse Per pt. 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, transfers independently Fracture of right hip pinning History of penile implant Hx of cholecystectomy Social History Smoking/Tobacco Use Status: Current every day Tobacco Type: cigars Smoking risk assessment performed?: Yes Alcohol Intake: former Drug use: Never Substance use type: does not use Do you feel safe at home: Yes Do you feel safe in your relationship?: Yes Exam Const General: cooperative, healthy appearing, comfortable, no acute distress and well developed Nutritional Appearance: average body habitus and well nourished Orientation: alert, awake and oriented x3 HENMT Head: normal to inspection Ears: hearing grossly normal bilaterally Mouth: moist mucous membranes Chest Chest: normal inspection of the chest, normal palpation of entire chest wall and no crepitus Resp Effort & Inspection: normal respiratory effort, able to speak in complete sentences and no respiratory distress Auscultation: clear to auscultation bilaterally, no rales, no rhonchi and no wheezes Cardio Rate: regular rate Rhythm: regular rhythm Heart Sounds: S1 normal and S2 normal GI Inspection: normal to inspection, no edema and non-distended Palpation: soft, no hepatosplenomegaly, not firm, no guarding, not rigid and nontender Auscultation: normal bowel sounds Back/Spine/Pelvis Back: no CVA tenderness Thoracic/Lumbar Spine: thoracic and lumbar spine normal to inspection Skin General skin exam: no rashes or lesions noted Trauma: no lacerations or abrasions Neuro General: patient alert, patient awake and patient oriented x3 Cognition: normal cognition Speech: speech normal Gait: gait abnormal (Left BKA, uses wheelchair at home) Extrem General: normal to inspection (right leg normal, LLE s/p BKA, no pain ), capillary refill normal, no pedal edema and no calf tenderness Psych Appearance: grossly normal and well kempt Mental Status: mental status grossly normal Speech and Movement: speech and movement normal Course Vital Signs Vital signs: Vital Signs Temperature 36.9 C 06/10/22 15:44 Pulse 73 06/10/22 15:44 Respiratory Rate 13 06/10/22 15:44 Blood Pressure 107/42 L 06/10/22 15:44 Pulse Oximetry 95 06/10/22 15:44 Temperature 36.9 C 06/10/22 15:44 Temperature Source Oral 06/10/22 15:44 Pulse 73 06/10/22 15:44 Respiratory Rate 13 06/10/22 15:44 Respiratory Effort Short of Breath 06/10/22 15:47 Blood Pressure 107/42 L 06/10/22 15:44 Blood Pressure Position Sitting 06/10/22 15:44 Pulse Oximetry 95 06/10/22 15:44 Oxygen Delivery Method Room Air 06/10/22 15:44 Oxygen Flow Rate 0 06/10/22 15:44 Pain Level 0 06/10/22 15:44
--- NOTE | 2022-06-10 17:00 | DI.RAD_ITS ---
Exam(s) XR CHEST 2V PA LATERAL EXAM: XR CHEST 2V PA LATERAL CLINICAL HISTORY: weakness, struck left side of chest TECHNIQUE: 2D digital imaging was performed of the chest. Two images were obtained. PA and lateral views were obtained. COMPARISON: CR,XR XR CHEST 2V PA LATERAL from 03/22/[address] CHEST PE CTA from 06/10/2022 FINDINGS: MEDIASTINUM: Normal. HEART: Normal. PULMONARY VASCULATURE: Normal. LUNGS: No focal consolidating infiltrates. The lungs appear hyperinflated with flattened diaphragms suggesting underlying COPD. PLEURAL SPACE: No pleural effusion or pneumothorax. There again seen bilateral calcified pleural plaq ues. BONE:Within normal limits for the patient's age. There again seen old left healed rib fractures conf irmed on the CT scan from the same day. OTHER FINDINGS:Normal. IMPRESSION: No acute pulmonary findings. DATA REPOSITORY: RADIATION DOSE DELIVERED:
--- NOTE | 2022-06-10 17:00 | RT.EKG_ITS ---
APPROVED REPORT Exam: Resting ECG Reason for Exam: weakness Patient Location: E HR:79 bpm ECG Measurements Heart Rate 79 AXIS WI 165 P 61 QRSd 99 QRS 53 QT 403 T -6 QTc 444 Conclusion Sinus rhythm...normal P axis, V-rate 60- 99 Atrial premature complexes in couplets...pair SV complexes w/ short R-R
[2022-06-10 17:19] LABS: Abs Immature Grans 0.07 10^3/uL (0.0-0.06); Absolute Lymphocyte Count 0.69 10^3/uL (1.2-3.4); Absolute Monocyte Count 0.84 10^3/uL (0.1-0.8); Basophils % 0.1; HCT 33.6 % (40.0-50.0); HGB 11.4 g/dL (13.5-17.5); Immature Grans % 0.4; Lymphocytes % 4.2; MCHC 33.9 % (32.0-36.0); MCV 83 fL (80-95); MPV 11.1 fL (8.0-11.0); Monocytes % 5.1; Neutrophils % 90.2; RBC 4.07 10^6/uL (4.36-5.78); RDW 16.7 % (11.8-14.1); RDW-SD 49.9 fL; WBC 16.54 10^3/uL (4.4-10.8)
[2022-06-10] MEDS: Normal Saline 1,000 ML 500 ML IV (17:26)
[2022-06-10 17:33] LABS: Absolute Basophil Count 0.02 10^3/uL (0.0-0.2); Absolute Neutrophil Count 14.92 10^3/uL (1.2-6.7)
[2022-06-10 17:34] LABS: Diff Comment PLT Morph Reviewed; Platelet Count 225 10^3/uL (130-400); RBC Morphology Normal
[2022-06-10 17:48] LABS: ALT 10 U/L (16-63); AST 26 U/L (15-37); Alkaline Phosphatase 135 U/L (46-116); Anion Gap 9.4 mmol/L (3-11); BUN 18 mg/dL (7-18); Bilirubin, Total 0.6 mg/dL (0.2-1.0); CO2 26.6 mmol/L (21.0-32.0); CREATININE 1.1 mg/dL (0.70-1.30); Calcium 8.6 mg/dL (8.5-10.1); Chloride 93 mmol/L (98-107); ETHANOL BLOOD < 3.0 mg/dL (<10); Estimated GFR 67.86 (mL/min/1.73m2); Glucose 112 mg/dL (74-106); Lipase 12 U/L (16-77); Magnesium 1.5 mg/dL (1.8-2.4); Potassium 3.7 mmol/L (3.5-5.1); Sodium 129 mmol/L (136-145); TSH (W/Ref FT4) 0.27 uIU/mL (0.36-3.74); Total Protein 6.7 g/dL (6.4-8.2); Troponin I < 50 ng/L (<or=60)
[2022-06-10 18:07] LABS: Ammonia 29 umol/L (11-32)
[2022-06-10 18:09] LABS: FREE T4 1.28 ng/dL (0.76-1.46)
[2022-06-10 18:27] LABS: D-Dimer 2163 ng/mlFEU (<500)
[2022-06-10 18:31] LABS: COVID-19 PCR Negative (Negative); Influenza A PCR Negative (Negative); Influenza B PCR Negative (Negative); RSV PCR Negative (Negative)
[2022-06-10 18:32] LABS: Source Nasopharynx
--- NOTE | 2022-06-10 18:39 | DI.VRAD_ITS ---
PROCEDURE INFORMATION: Exam: XR Chest Exam date and time: 06/10/2022 6:07 PM Age: 82 years old Clinical indication: Pain; Left-sided TECHNIQUE: Imaging protocol: Radiologic exam of the chest. Views: 2 views. COMPARISON: CR XR CHEST 2V PA LATERAL 03/22/2022 10:58 PM FINDINGS: Lungs: No acute pulmonary infiltrate evident. Pleural spaces: No significant pleural fluid or evidence of pneumothorax. Heart/Mediastinum: Unremarkable. No cardiomegaly. Bones/joints: Scattered densities in both sides of the chest appear to represent prominent costochondral calcifications or possibly pleural calcifications. These appear unchanged from previous. Moderate degenerative changes of the spine and shoulders noted. IMPRESSION: Stable chronic appearing findings. No acute abnormality evident Dictated and Authenticated by: Nicolas Rockwell MD. Ordering:SERGO Leos MD
[2022-06-10] MEDS: Magnesium Oxide 400 MG TAB PO (18:42)
--- NOTE | 2022-06-10 19:30 | DI.CT_ITS ---
Exam(s) CT CHEST PE CTA EXAM: CT CHEST PE CTA CLINICAL HISTORY: weakness, elevated dimer. TECHNIQUE: Imaging Protocol: Axial CT angiography was performed with multi-slice acquisition and mu lti-planar and/or 3D reconstructions. CONTRAST MATERIAL: Intravenous: Omnipaque 350 contrast volume:100 mL COMPARISON: CT CT CHEST/ABD/PEL W from 07/07/[address] RENAL COLIC WO from 03/07/2022 CR,XR XR CHEST 2V PA LATERAL from 06/10/2022 FINDINGS: Tracheobronchial tree: There are some secretions seen at the level of the yaima and in the left main stem bronchus. Pulmonary parenchyma: Emphysematous changes are present in the lungs. Calcified granuloma are presen t in the lungs. There is unchanged nodular scarring in the left lingula. Dependent atelectatic beckham ges are seen in the lung bases. No focal consolidations are present. Pulmonary Arteries: No evidence of filling defect to suggest pulmonary emboli. Mediastinum and Guerda: No dominant adenopathy or fluid collection. The esophagus is unremarkable. Visualized thyroid gland: Unremarkable. Pleura: No effusion or pneumothorax. There are calcified pleural plaques bilaterally. Heart: The heart is not dilated. Moderate coronary artery calcification is present. No pericardial e ffusion. Aorta: Thoracic aorta non-dilated. No evidence of dissection. Atherosclerosis is present. Upper abdomen: There are simple bilateral renal cysts. No follow-up is recommended. There are stab le bilateral adrenal nodularity. No follow-up is recommended. Soft tissues: Mild bilateral gynecomastia. Bones: Within normal limits for the patient's age.There are old healed left rib fractures. IMPRESSION: 1. No evidence of pulmonary embolism, thoracic aortic dissection or aneurysm. 2. No acute pulmonary process. RADIATION DOSE DELIVERED: 345.6mGy.cm Total DLP DATA REPOSITORY: All CT scans at this facility are submitted to the National Radiology Data Registry (NRDR) Dose Index Registry (DIR) with the [employer] (ACR). RADIATION OPTIMIZATION: All CT scans at this facility use at least one of these dose optimization te chniques: automated exposure control; mA and/or kV adjustment per patient size (includes targeted exa ms where dose is matched to clinical indication); or iterative reconstruction.
[2022-06-10] MEDS: Normal Saline Flush 10 ML SYR IVP (20:08)
[2022-06-10] MEDS: Omnipaque 350 MG/ML 100 ML BTL IJ (20:09)
[2022-06-10] MEDS: Normal Saline - Diluent 50 ML VIAL IJ (20:09)
[2022-06-10 20:32] LABS: Troponin I < 50 ng/L (<or=60)
[2022-06-10 20:42] LABS: Bilirubin Negative (Negative); Blood Small (Negative); Clarity Cloudy (Clear); Glucose Negative (Negative); Ketones Negative (Negative); Leukocyte Esterase Large (Negative); Nitrite Negative (Negative); Specific Gravity 1.015 (1.005-1.025); Urobilinogen 0.2 mg/dL (Up to 0.2)
--- NOTE | 2022-06-10 20:50 | DI.VRAD_ITS ---
PROCEDURE INFORMATION: Exam: CTA Chest With Contrast Exam date and time: 06/10/2022 8:24 PM Age: 82 years old Clinical indication: Other: Weakness, elevated dimer TECHNIQUE: Imaging protocol: Computed tomographic angiography of the chest with contrast. 3D rendering (Not supervised by radiologist): MIP and/or 3D reconstructed images were created by the technologist. Radiation optimization: All CT scans at this facility use at least one of these dose optimization techniques: automated exposure control; mA and/or kV adjustment per patient size (includes targeted exams where dose is matched to clinical indication); or iterative reconstruction. Contrast material: OMNIPAQUE 350; Contrast volume: 100 ml; Contrast route: INTRAVENOUS (IV); COMPARISON: CT THORAX ABD/PEL CTA 06/07/2020 3:55 PM FINDINGS: Pulmonary arteries: Normal. No pulmonary emboli. Aorta: Moderate atherosclerotic calcification noted throughout the aorta. No evidence of thoracic aortic aneurysm or dissection. Lungs: Moderate changes of emphysema noted throughout both lungs. There is chronic appearing parenchymal scarring in the lingula. No significant active pulmonary infiltrate. Pleural spaces: Scattered calcified pleural plaques throughout both sides of the chest appear similar to previous. No significant pleural fluid. No pneumothorax. Heart: Unremarkable. No cardiomegaly. No pericardial effusion. Lymph nodes: Unremarkable. No enlarged lymph nodes. Kidneys and ureters: Multiple bilateral renal cysts noted in the upper abdomen. Bones/joints: Moderate degenerative disc changes in syndesmophyte as well as osteophyte formation noted throughout the thoracic spine. There is accentuated thoracic kyphosis. No acute fracture. Soft tissues: Unremarkable. IMPRESSION: No evidence of pulmonary embolus or other acute abnormality in the chest. Chronic appearing findings as noted. Dictated and Authenticated by: Nicolas Rockwell MD. Ordering:SERGO Leos MD
[2022-06-10 20:51] LABS: Epithelial Cells Rare HPF (Negative); WBC >50 HPF (0-5)
[2022-06-10 20:52] LABS: Bacteria Many HPF (Negative); C & S Indicated? Yes; Casts Negative LPF (Negative); Crystals Negative HPF (Negative); Mucus Trace (Negative)
[2022-06-10] MEDS: levoFLOXacin 500 MG, levoFLOXacin 250 MG 750 MG PO (21:33)
[2022-06-10] MEDS: levoFLOXacin 500 MG TAB 3750 MG PO (23:17)
--- NOTE | 2022-06-12 08:05 | NUR.NOTE ---
Nursing Note:Accessed chart to look up whether or not on antibiotic.
== END 2022-06-10 23:18 | disposition home or self-care (01) ==
PROVIDERS: Emergency Provider Physician Assistant; PCP Internal Medicine
DX: N41.9 Inflammatory disease of prostate, unspecified (principal); I10 Essential (primary) hypertension; J44.9 Chronic obstructive pulmonary disease, unspecified; D72.829 Elevated white blood cell count, unspecified; R79.1 Abnormal coagulation profile; R74.8 Abnormal levels of other serum enzymes; D64.9 Anemia, unspecified; R26.9 Unspecified abnormalities of gait and mobility; Z79.82 Long term (current) use of aspirin; Z20.822 Contact with and (suspected) exposure to COVID-19
CPT/HCPCS: 36415; 71275; 80053; 83690; 87077; 87637; 93005; 96360; 96361; 99285; 71046; 80320; 81003; 81015; 82140; 83735; 84439; 84443; 84484; 85025; 85379; 87086; 87186; 93010; 99284; J3490

== ENCOUNTER 2022-06-12 13:01 | Emergency (ER) | payer OTHER, SELFPAY ==
[2022-06-12] VITALS (34 sets, daily range): BP systolic 111–133; BP diastolic 53–67; PULSE 61–82; RESP 0–26; TEMP 36.2; O2SAT 82–100
--- NOTE | 2022-06-12 13:00 | RT.EKG_ITS ---
APPROVED REPORT Exam: Resting ECG Reason for Exam: chest pain Patient Location: E HR:77 bpm ECG Measurements Heart Rate 77 AXIS [place] 141 P 88 QRSd 95 QRS 56 QT 415 T -18 QTc 445 Conclusion Sinus rhythm...normal P axis, V-rate 60- 99 Atrial premature complexes...SV complexes w/ short R-R intvls
--- NOTE | 2022-06-12 13:15 | DI.CT_ITS ---
Exam(s) CT ABDOMEN PELVIS W EXAM: CT ABDOMEN PELVIS W CLINICAL HISTORY: RLQ pain abdominal TECHNIQUE: Imaging Protocol: Axial computed tomography images with coronal and sagittal reformatted images were created and reviewed CONTRAST MATERIAL: Intravenous: Omnipaque 350 Contrast volume:99 mL Oral: yes / no COMPARISON: CT CT CHEST/ABD/PEL W from 07/07/[address] RENAL COLIC WO from 03/07/[address] CHEST PE CTA from 06/10/2022 FINDINGS: ABDOMEN: Lung Bases: Calcific pleural plaques are present. Coronary artery calcification is seen. Liver: Normal density. The tiny hypodensity in the left lobe of the liver is unchanged. No suspiciou s hepatic masses are seen. There is again seen pneumobilia. Portal, Superior Mesenteric, and Splenic Veins: Unremarkable. Gallbladder and Biliary Tract: Status post cholecystectomy. No significant biliary ductal dilatation . Pancreas: Normal density, no abnormal calcifications or inflammatory process. Spleen: Normal. Adrenals: Stable bilateral adrenal nodularity. Kidneys: Normal size, contour and axis. No radiodense stones or obstructive uropathy. There are bilat eral renal cysts which appears stable. No follow-up is recommended. Abdominal Aorta: Abdominal portion non-dilated. Atherosclerosis is present. Bowel: No obstruction or bowel wall thickening. No evidence of appendicitis. There is diverticulosis of the colon but no evidence of acute diverticulitis. Peritoneal Cavity: No ascites, collection or mesenteric inflammatory response. No free air. Lymph Nodes: Within normal limits. Bones: There is again seen in the intramedullary beena and nail in the proximal left femur. Postsurgic al changes are seen at L4-L5. Age-appropriate degenerative changes are seen in the spine. There is an unchanged T11 compression deformity. Soft Tissues: There is again seen a penile implant. PELVIS: Bladder: Symmetric distention, no gross wall thickening. Reproductive Organs: Unremarkable as visualized. Lymph Nodes: Within normal limits. Bones: Within normal limits for the patient's age. IMPRESSION: 1. No acute abdominal or pelvic process. 2. Colonic diverticulosis but no evidence of acute diverticulitis. 3. Chronic changes in the abdomen and pelvis as described. 4. Findings were discussed with Yoanna Oconnor on 06/12/2022 at 3:23 p.m. RADIATION DOSE DELIVERED: 1,535.77mGy.cm Total DLP DATA REPOSITORY: All CT scans at this facility are submitted to the National Radiology Data Registry (NRDR) Dose Index Registry (DIR) with the [employer] (ACR). RADIATION OPTIMIZATION: All CT scans at this facility use at least one of these dose optimization te chniques: automated exposure control; mA and/or kV adjustment per patient size (includes targeted exa ms where dose is matched to clinical indication); or iterative reconstruction.
[2022-06-12 14:37] LABS: Lactate 1.7 mmol/L (0.6-1.4)
[2022-06-12 14:38] LABS: HCT 34.6 % (40.0-50.0); HGB 11.4 g/dL (13.5-17.5); MCH 27.9 pg (27.0-33.0); MCV 85 fL (80-95); RBC 4.09 10^6/uL (4.36-5.78); WBC 6.68 10^3/uL (4.4-10.8)
[2022-06-12 14:39] LABS: MCHC 32.9 % (32.0-36.0); MPV 10.5 fL (8.0-11.0); Platelet Count 253 10^3/uL (130-400); RDW 16.7 % (11.8-14.1); RDW-SD 51.6 fL
[2022-06-12 14:40] LABS: Absolute Basophil Count 0.01 10^3/uL (0.0-0.2); Absolute Eosinophil Count 0.05 10^3/uL (0.0-0.7); Absolute Lymphocyte Count 0.95 10^3/uL (1.2-3.4); Absolute Monocyte Count 0.61 10^3/uL (0.1-0.8); Absolute Neutrophil Count 5.05 10^3/uL (1.2-6.7); Basophils % 0.1; Eosinophils % 0.7; Immature Grans % 0.3; Lymphocytes % 14.2; Monocytes % 9.1; Neutrophils % 75.6
[2022-06-12 14:41] LABS: Diff Comment AUTO DIFF
[2022-06-12] MEDS: Omnipaque 350 MG/ML 100 ML BTL IJ (14:45)
[2022-06-12] MEDS: Normal Saline - Diluent 50 ML VIAL IJ (14:45)
--- NOTE | 2022-06-12 15:10 | ED.GENADUL_ITS ---
Discharge Plan Disposition Patient Disposition: Home Condition: Stable Discharge Details Clinical Impression: Acute UTI, Anorexia, Acute urinary retention Primary Care Provider: Brad Morrow ED Provider: Dasha Lopez Home Meds and New Rx's Prescriptions: New magnesium 250 mg tablet 250 mg PO DAILY Qty: 10 0RF levofloxacin 750 mg tablet 750 mg PO DAILY 7 Days Qty: 7 0RF Rx Instructions: Take 1 tablet by mouth daily for the next 7 days levofloxacin 750 mg tablet 750 mg PO DAILY 7 Days Qty: 7 0RF Rx Instructions: Take 1 tablet by mouth daily x7 days Continued nitroglycerin [Nitrostat] 0.4 mg tablet, sublingual 0.4 mg Sublingual Q5M PRN Patient Comments: doesn't have chest pain Rx Instructions: for chest pain amlodipine 10 MG tablet 5 mg PO DAILY omeprazole 20 MG capsule,delayed release(DR/EC) 40 mg PO DAILY AM Patient Comments: Pt. states that he doesn't take this medication. albuterol sulfate 90 mcg/actuation HFA aerosol inhaler 2 puff INHALATION Q6H PRN aspirin 81 mg Tablet,Delayed Release (Dr/Ec) 81 mg PO DAILY atorvastatin 40 mg Tablet 40 mg PO HS calcium carbonate-vitamin D3 [Calcium 500 + D] 500 mg-5 mcg (200 unit) Tablet 2 tab PO DAILY tiotropium bromide 2.5 mcg/actuation Mist 2 puff INHALATION DAILY trazodone 100 mg Tablet 300 mg PO HS tamsulosin 0.4 mg capsule 0.4 mg PO DAILY AM furosemide 20 mg Tablet 20 mg PO DAILY Qty: 0 0RF lidocaine [Lidoderm] 5 % adhesive patch,medicated 1 patch TP DAILY PRN (Reason: pain) Qty: 15 0RF Rx Instructions: leave on most painful area for up to 12 hrs potassium chloride 20 mEq tablet extended release 10 meq PO DAILY Discontinued levofloxacin 750 mg tablet 750 mg PO DAILY Qty: 7 0RF Discharge Instructions Instructions: Urinary Retention in Men (ED), Urinary Tract Infection in Men (ED) Additional Instructions: Please follow-up with the urologist regarding the Muse catheter, he will need a Muse catheter as you are retaining urine and this will help us treat your urinary tract infection appropriately I have arranged for home health, please follow-up with them as you do need these resources, take the antibiotic as prescribed, your prescription has been sent to [facility], they do perform home delivery, you may call [facility] to ask them to deliver your medications, you be given a dose today and for tomorrow, you have 7 more days of antibiotics that you will need to take Take the magnesium supplementation as prescribed Please call your doctor for follow-up and return immediately should you have new or worsening complaints Referrals: Carlton Resendiz MD [ [facility] STAFF PHYSICIAN] - 1 day Medical Decision Making <ALYSSA Gomes - Last Filed: 06/13/22 12:07> This 82-year-old gentleman presents with fatigue, weakness, anorexia for the past several weeks. States he is able to drink without difficulty. Denies any nausea or vomiting or diarrhea Is alert and oriented, stable vitals Given recent diagnosis of prostatitis in the presence of urinary symptoms, patient was started on Levaquin, he only took a dose on the day he was ev aluated, the . He has not taken any additional doses He does state he has been able to transfer in his wheelchair per patient. When asked regarding his plan regarding food but he states that he wants his taste resolved. Hemoglobin is 11.4, hematocrit 34.6, not changed from prior, lactate is 1.7, likely mild dehydration, vitals are inconsistent with being septic and no leukocytosis, 16,000 white count on previous presentation Labs are reassuring for patient, mild hypomagnesemia, 1.7, CBC improved Talked about admission as patient states he feels weak, however he feels comfortable going home and actually declined staying in the hospital We will give him a prescription for Levaquin at [facility], will give him a single dose of [address] scan does not show obvious evidence of prostatitis He does have a urinary tract infection positive for Klebsiella Remainder of his labs have actually improved, he received 1 L of normal saline here We talked about boost and Ensure to replace food at home Return precautions were reviewed in detail Of note, patient does have a penile implant, I discussed with Shyann Ford regarding Muse catheter placement for urinary retention as patient had postvoid residual of 400, as long as his penile implant is not inflated, to place a normal Muse catheter and follow-up with urology Care transitioned to Rebeca Lopez pending Muse catheter placement, single dose of Levaquin to take here in 1 days to go home with, and discharged with EMS as patient is wheelchair dependent and does not have a wheelchair with him Home health supplied for resources at home including that of PT OT, ensuring patient has appropriate medical devices to assist with ADLs, appropriate care management resources in the community for transportation as needed with w heelchair dependence Medical Records Medical records reviewed: Yes I reviewed the patient's medical records. <Dasha Lopez NP - Last Filed: 06/12/22 22:46> This 82-year-old gentleman presents with fatigue, weakness, anorexia for the past several weeks. States he is able to drink without difficulty. Denies any nausea or vomiting or diarrhea Is alert and oriented, stable vitals Given recent diagnosis of prostatitis in the presence of urinary symptoms, patient was started on Levaquin, he only took a dose on the day he was evaluated, the . He has not taken any additional doses He does state he has been able to transfer in his wheelchair per patient. When asked regarding his plan regarding food but he states that he wants his taste resolved. Hemoglobin is 11.4, hematocrit 34.6, not changed from prior, lactate is 1.7, likely mild dehydration, vitals are inconsistent with being septic and no leukocytosis, 16,000 white count on previous presentation Labs are reassuring for patient, mild hypomagnesemia, 1.7, CBC improved Talked about admission as patient states he feels weak, however he feels comfortable going home and actually declined staying in the hospital We will give him a prescription for Levaquin at [email or web address], will give him a single dose of [address] scan does not show obvious evidence of prostatitis He does have a urinary tract infection positive for Klebsiella Remainder of his labs have actually improved, he received 1 L of normal saline here We talked about boost and Ensure to replace food at home Return precautions were reviewed in detail Of note, patient does have a penile implant, I discussed with Shyann Ford regarding Muse catheter placement for urinary retention as patient had postvoid residual of 400, as long as his penile implant is not inflated, to place a normal Muse catheter and follow-up with urology Care transitioned to Rebeca Lopez pending Muse catheter placement, single dose of Levaquin to take here in 1 days to go home with, and discharged with EMS as patient is wheelchair dependent and does not have a wheelchair with him Home health supplied for resources at home including that of PT OT, ensuring patient has appropriate medical devices to assist with ADLs, appropriate care management resources in the community for transportation as needed with wheelchair dependence 1600: SJ: Care assumed from provider (ALYSSA Gomes) Please see their initial HPI, PE, and documentation. Discussed patient details and case and pending workup and disposition. Patient is hemodynamically stable, and alert and oriented. At the time of signout awaiting Muse placement and discharged home with levofloxacin. Patient was given a prescription for 250 mg daily x7 days however patient reports that he was on 750 mg prior to this. Prescription was changed to 750 mg. He was given the first dose here. Patient is declining Fol ey placement per director of midwifery/staff midwife. Patient to be discharged with EMS transport to home. Please see my my colleagues previous note. HPI <ALYSSA Gomes - Last Filed: 06/13/22 12:07> General Date/Time Provider Initiated Documentation: 06/12/22 13:12 . HPI Narrative: This 82-year-old gentleman with history of urinary tract infection, COPD recent diagnosis of prostatitis, pneumonia, Warnicke's encephalopathy, hypertension presents with report of generalized weakness, anorexia, and fatigue. Patient reports abdominal pain. He denies any falls or injuries aside from his initial presentation. he was started on Levaquin taking only 1 dose of this yesterday. Patient states has been unable to taste food since being diagnosed and diagnosed with COVID in February.. He states that this makes it difficult for him to eat. He does not get pain or vomit with food per patient. Related Data Home Medications Medication Instructions Recorded Confirmed amlodipine 10 mg tablet 5 mg PO DAILY 10/25/14 06/12/22 omeprazole 20 mg capsule,delayed 40 mg PO DAILY AM 10/25/14 06/12/22 release furosemide 20 mg tablet 20 mg PO DAILY #0 tabs 07/17/21 06/12/22 albuterol sulfate 90 mcg/actuation 2 puff inhalation Q6H PRN 07/30/21 06/12/22 aerosol inhaler nitroglycerin 0.4 mg sublingual 0.4 mg sublingual Q5M PRN 07/30/21 06/12/22 tablet (Nitrostat) aspirin 81 mg tablet,delayed 81 mg PO DAILY 10/20/21 06/12/22 release atorvastatin 40 mg tablet 40 mg PO HS 10/20/21 06/12/22 calcium carbonate 500 mg-vitamin 2 tab PO DAILY 10/20/21 06/12/22 D3 5 mcg (200 unit) tablet (Calcium 500 + D) tiotropium bromide 2.5 2 puff inhalation DAILY 10/20/21 06/12/22 mcg/actuation mist for inhalation trazodone 100 mg tablet 300 mg PO HS 10/20/21 06/12/22 tamsulosin 0.4 mg capsule 0.4 mg PO DAILY AM 03/04/22 06/12/22 lidocaine 5 % topical patch 1 patch topical DAILY PRN pain #15 03/23/22 06/12/22 (Lidoderm) ea potassium chloride 20 mEq 10 meq PO DAILY 03/29/22 06/12/22 tablet,extended release levofloxacin 750 mg tablet 750 mg PO DAILY 7 days #7 tabs 06/12/22 levofloxacin 750 mg tablet 750 mg PO DAILY 7 days #7 tabs 06/12/22 magnesium 250 mg tablet 250 mg PO DAILY #10 tabs 06/12/22 Previous Rx's Medication Instructions Recorded furosemide 20 mg tablet 20 mg PO DAILY #0 tabs 07/17/21 lidocaine 5 % topical patch 1 patch topical DAILY PRN pain #15 03/23/22 (Lidoderm) ea levofloxacin 750 mg tablet 750 mg PO DAILY 7 days #7 tabs 06/12/22 levofloxacin 750 mg tablet 750 mg PO DAILY 7 days #7 tabs 06/12/22 magnesium 250 mg tablet 250 mg PO DAILY #10 tabs 06/12/22 Allergies Allergy/AdvReac Type Severity Reaction Status Date / Time No Known Allergies Allergy Verified 06/12/22 13:11 General Stated Complaint: GenMedical EDITH: 3 PFSH <ALYSSA Gomes - Last Filed: 06/13/22 12:07> All Active Problems (Updated 06/12/22 @ 16:17 by ALYSSA Gomes) Prostatitis (Acute) Anorexia (Acute) Acute urinary retention (Acute) Lower urinary tract symptoms (LUTS) (Acute) Community acquired pneumonia (Acute) COPD (chronic obstructive pulmonary disease) (Chronic) Hyponatremia (Chronic) Pancytopenia (Acute) Chest pain (Acute) Alcohol abuse (Chronic) Dizziness (Acute) Stenosis of right internal carotid artery (Acute) Peripheral vertigo of both ears (Acute) Orthostatic hypotension (Acute) Peripheral neuropathy (Chronic) Thoracic vertebral fracture (Acute) Laceration of right thumb (Acute) Fracture of rib of left side (Chronic) Syncope (Acute) Pain (Acute) Hypertension (Chronic) COPD exacerbation (Acute) Intention tremor (Chronic) Insomnia (Acute) Wernicke encephalopathy (Acute) Pneumonia (Acute) Health insurance with [facility] (Acute) DNR (do not resuscitate) (Acute) Osteomyelitis of left foot (Acute) Anemia (Chronic) B12 deficiency anemia (Acute) Sepsis (Acute) Acute UTI (Acute) Continuous tobacco abuse (Chronic) Weak (Acute) Left ureteral stone (Acute) Medical History Alcohol abuse Per pt. 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, transfers independently Fracture of right hip pinning History of penile implant Hx of cholecystectomy Social History Smoking/Tobacco Use Status: Current every day Tobacco Type: cigars Smoking risk assessment performed?: Yes Alcohol Intake: former Drug use: Never Substance use type: does not use Do you feel safe at home: Yes Do you feel safe in your relationship?: Yes Exam <ALYSSA Gomes - Last Filed: 06/13/22 12:07> Const General: cooperative, comfortable and no acute distress HENMT Other: moist mucous membranes Resp Effort & Inspection: normal respiratory effort Auscultation: clear to auscultation bilaterally Cardio Rate: regular rate Rhythm: regular rhythm GI Inspection: normal to inspection Other: Mild diffuse abdominal tenderness Skin General skin exam: no rashes or lesions noted Neuro General: patient alert and patient oriented x3 Course <ALYSSA Gomes - Last Filed: 06/13/22 12:07> Vital Signs Vital signs: Vital Signs Temperature 36.2 C L 06/12/22 13:02 Pulse 78 06/12/22 13:02 Respiratory Rate 18 06/12/22 13:02 Blood Pressure 129/53 L 06/12/22 13:02 Pulse Oximetry 99 06/12/22 13:02 Temperature 36.2 C L 06/12/22 13:02 Temperature Source Skin 06/12/22 13:02 Pulse 68 06/12/22 13:16 Pulse 73 06/12/22 13:20 Respiratory Rate 22 06/12/22 13:20 Respiratory Effort Normal, Non-Labored 06/12/22 13:15 Respiratory Depth Normal 06/12/22 13:15 Respiratory Pattern Normal 06/12/22 13:15 Blood Pressure 121/64 06/12/22 13:16 Blood Pressure Mean 77 06/12/22 13:16 Blood Pressure Position Supine 06/12/22 13:02 Pulse Oximetry 99 06/12/22 13:20 Oxygen Delivery Method Room Air 06/12/22 13:02 Oxygen Flow Rate 0 06/12/22 13:02 Lab/Test Results Lab/Test Results: 06/12/22 14:28 Blood Blood Culture - Pending 06/12/22 13:50 Blood Blood Culture - Pending Laboratory Tests Range/Units 06/12/22 06/12/22 13:50 14:00 WBC (4.4-10.8) 10^3/uL 6.68 RBC (4.36-5.78) 10^6/uL 4.09 L Hgb (13.5-17.5) g/dL 11.4 L Hct (40.0-50.0) % 34.6 L MCV (80-95) fL 85 MCH (27.0-33.0) pg 27.9 MCHC (32.0-36.0) % 32.9 RDW (11.8-14.1) % 16.7 H Plt Count (130-400) 10^3/uL 253 MPV (8.0-11.0) fL 10.5 Immature Gran % 0.3 Neutrophils % 75.6 Lymphocytes % 14.2 Monocytes % 9.1 Eosinophils % 0.7 Basophils % 0.1 Nucleated RBC % (0.0-0.3) % 0.0 Absolute Neutrophils (1.2-6.7) 10^3/uL 5.05 Absolute Lymphocytes (1.2-3.4) 10^3/uL 0.95 L Absolute Monocytes (0.1-0.8) 10^3/uL 0.61 Absolute Eosinophils (0.0-0.7) 10^3/uL 0.05 Absolute Basophils (0.0-0.2) 10^3/uL 0.01 VBG Lactate (0.6-1.4) mmol/L 1.7 H Sign Out <ALYSSA Gomes - Last Filed: 06/13/22 12:07> Sign Out Data: Sign Out Comment: signed out pending muse catheter (urology consultation penile implant), levaquin, and discharge home Last updated by Yoanna Oconnor PA at 06/12/22 16:01
[2022-06-12] MEDS: Normal Saline 1,000 ML 1000 ML IV (15:16)
[2022-06-12 15:43] LABS: Albumin 2.1 g/dL (3.4-5.0); Alkaline Phosphatase 122 U/L (46-116); Anion Gap 6.4 mmol/L (3-11); BUN 11 mg/dL (7-18); Bilirubin, Total 0.3 mg/dL (0.2-1.0); CO2 28.6 mmol/L (21.0-32.0); CREATININE 0.9 mg/dL (0.70-1.30); Calcium 9.1 mg/dL (8.5-10.1); Chloride 99 mmol/L (98-107); Estimated GFR 86.34 (mL/min/1.73m2); Glucose 104 mg/dL (74-106); Potassium 4.1 mmol/L (3.5-5.1); Sodium 134 mmol/L (136-145)
[2022-06-12 15:44] LABS: ALT 14 U/L (16-63); AST 25 U/L (15-37); Lipase 20 U/L (16-77); Magnesium 1.7 mg/dL (1.8-2.4)
[2022-06-12 15:46] LABS: Troponin I < 50 ng/L (<or=60)
--- NOTE | 2022-06-12 16:17 | NUR.NOTE ---
Nursing Note: Referral faxed to [facility] Urology for ureinary retention, UTI/ appt at their discretion.l
[2022-06-12] MEDS: levoFLOXacin 500 MG, levoFLOXacin 250 MG 750 MG PO (16:53)
--- NOTE | 2022-06-13 11:07 | CMACTNOTE_ITS ---
- If Service Date Differs Date of service: 06/13/22 Time of Service: 11:07 Care Management Activity Note Tyler is seen in the ED for acute UTI, anorexia and acute urinary retention. At the request of ED provider, CM coordinates a referral to Home Health for new RN, PT, OT and [facility] services.
== END 2022-06-12 17:33 | disposition home or self-care (01) ==
PROVIDERS: Physician Assistant; Emergency Provider Registered Nurse Emergency; PCP Internal Medicine
DX: N39.0 Urinary tract infection, site not specified (principal); R33.9 Retention of urine, unspecified; R63.0 Anorexia; E86.0 Dehydration; E83.42 Hypomagnesemia; I10 Essential (primary) hypertension; J44.9 Chronic obstructive pulmonary disease, unspecified; Z79.82 Long term (current) use of aspirin
CPT/HCPCS: 36415; 80053; 83690; 87040; 93005; 96360; 96361; 99285; 74177; 83605; 83735; 84484; 85025; 93010; 99284; J3490

== ENCOUNTER 2022-06-17 20:28 | Emergency (ER) | payer OTHER, SELFPAY ==
[2022-06-17] VITALS (52 sets, daily range): BP systolic 107–118; BP diastolic 50–59; PULSE 62–76; RESP 15–26; TEMP 36.4; O2SAT 94–97
--- NOTE | 2022-06-17 20:15 | RT.EKG_ITS ---
APPROVED REPORT Exam: Resting ECG Reason for Exam: leg spasm Patient Location: E HR:69 bpm ECG Measurements Heart Rate 69 AXIS HI [id number] P [id number] QRSd 102 QRS 58 QT 437 T -12 QTc 470 Conclusion Atrial flutter...A-rate 300
--- NOTE | 2022-06-17 20:30 | DI.RAD_ITS ---
Exam(s) XR CHEST 2V PA LATERAL EXAM: XR CHEST 2V PA LATERAL CLINICAL HISTORY: CP TECHNIQUE: 2D digital imaging was performed of the chest. Images were obtained. PA and lateral v iews were obtained. COMPARISON: CR,XR XR CHEST 2V PA LATERAL from 06/10/2022 FINDINGS: MEDIASTINUM: Normal. HEART: Normal. PULMONARY VASCULATURE: Normal. LUNGS: No focal consolidating infiltrates are seen. The lungs appear hyperinflated with flattened di aphragms suggesting underlying COPD. PLEURAL SPACE: No pleural effusion or pneumothorax. There are calcified pleural plaques present. BONE:Within normal limits for the patient's age. OTHER FINDINGS:Normal. IMPRESSION: No acute pulmonary findings. DATA REPOSITORY: RADIATION DOSE DELIVERED:
[2022-06-17 20:51] LABS: Abs Immature Grans 0.04 10^3/uL (0.0-0.06); Absolute Basophil Count 0.06 10^3/uL (0.0-0.2); Absolute Eosinophil Count 0.17 10^3/uL (0.0-0.7); Absolute Lymphocyte Count 1.76 10^3/uL (1.2-3.4); Absolute Monocyte Count 0.75 10^3/uL (0.1-0.8); Absolute Neutrophil Count 4.61 10^3/uL (1.2-6.7); Basophils % 0.8; Eosinophils % 2.3; HCT 32.3 % (40.0-50.0); HGB 10.7 g/dL (13.5-17.5); Immature Grans % 0.5; Lymphocytes % 23.8; MCH 27.9 pg (27.0-33.0); MCHC 33.1 % (32.0-36.0); MCV 84 fL (80-95); MPV 10.2 fL (8.0-11.0); Monocytes % 10.1; Neutrophils % 62.5; Platelet Count 237 10^3/uL (130-400); RBC 3.83 10^6/uL (4.36-5.78); RDW 16.9 % (11.8-14.1); RDW-SD 51.8 fL; WBC 7.39 10^3/uL (4.4-10.8)
--- NOTE | 2022-06-17 20:54 | ED.GENADUL_ITS ---
Discharge Plan Disposition Patient Disposition: Home Condition: Stable Discharge Details Clinical Impression: Chest pain, UTI (urinary tract infection) Primary Care Provider: Brad Morrow ED Provider: Rosario Almendarez Home Meds and New Rx's Prescriptions: Continued nitroglycerin [Nitrostat] 0.4 mg tablet, sublingual 0.4 mg Sublingual Q5M PRN Patient Comments: doesn't have chest pain Rx Instructions: for chest pain amlodipine 10 MG tablet 5 mg PO DAILY omeprazole 20 MG capsule,delayed release(DR/EC) 40 mg PO DAILY AM Patient Comments: Pt. states that he doesn't take this medication. albuterol sulfate 90 mcg/actuation HFA aerosol inhaler 2 puff INHALATION Q6H PRN aspirin 81 mg Tablet,Delayed Release (Dr/Ec) 81 mg PO DAILY atorvastatin 40 mg Tablet 40 mg PO HS calcium carbonate-vitamin D3 [Calcium 500 + D] 500 mg-5 mcg (200 unit) Tablet 2 tab PO DAILY tiotropium bromide 2.5 mcg/actuation Mist 2 puff INHALATION DAILY trazodone 100 mg Tablet 300 mg PO HS tamsulosin 0.4 mg capsule 0.4 mg PO DAILY AM magnesium 250 mg tablet 250 mg PO DAILY Qty: 10 0RF levofloxacin 750 mg tablet 750 mg PO DAILY 7 Days Qty: 7 0RF Rx Instructions: Take 1 tablet by mouth daily for the next 7 days levofloxacin 750 mg tablet 750 mg PO DAILY 7 Days Qty: 7 0RF Rx Instructions: Take 1 tablet by mouth daily x7 days furosemide 20 mg Tablet 20 mg PO DAILY Qty: 0 0RF lidocaine [Lidoderm] 5 % adhesive patch,medicated 1 patch TP DAILY PRN (Reason: pain) Qty: 15 0RF Rx Instructions: leave on most painful area for up to 12 hrs potassium chloride 20 mEq tablet extended release 10 meq PO DAILY Discharge Instructions Instructions: Chest Pain (ED), Urinary Tract Infection in Men (ED) Additional Instructions: Your blood tests, EKG and imaging today is reassuring and shows no evidence of acute concerning findings. Your magnesium was low today and you were given magnesium supplementation in the emergency department. Your urine sample still shows evidence of a bladder infection. Continue your Levaquin as directed until finished. Call your primary care doctor's office tomorrow to schedule a follow-up appointment for reevaluation and for referral for outpatient stress deficit if your chest pain persists or worsens. Return immediately to the emergency department if you develop any worsening or new concerning symptoms. Discharge Data Discharge Date/Time-TO BE ENTERED AT DEPARTURE: 06/18/22 00:29 Discharge Physician: Rosario Almendarez Medical Decision Making <ALYSSA May - Last Filed: 06/18/22 20:53> Patient is a pleasant 82-year-old male, well-known to myself, with chief complaint of chest pain. States that chest pain began yesterday but has in creased in frequency and severity. Not changed with movement but does increase with pressure applied to the chest. He denies any shortness of breath, does state that he does have some mild COPD but no drop in his O2 associated with this. Denies any abdominal pain although he does report that he has been having issues with urinary retention was here recently for the same. Previously had declined a catheter but is amenable to this at that time. He has been taking his antibiotics as prescribed. He denies any fevers or chills or chills. No cough. States that he had been constipated and not had a bowel movement in some time but had a bowel movement normally today. 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 Received ASA prior to arrival. Past medical history is pertinent for COPD, alcohol abuse, stenosis of right internal carotid, hypertension, Warnicke encephalopathy, anemia, weakness. Patient reports he is a DNR/DNI and would not want to have any surgical correction if required for found etiology. He does not want me to call anybody. Patient has been taking his medications as previously prescribed. Was given aspirin. Reports that he took 300 mg of trazodone about 1 hour prior to arrival. ECG rreviewed by Dr Merchant, no acute ischemic changes. Appear unchanged from previous. On exam, patient appears nontoxic, appears to bee at his baseline. He has pain elicited with palpatio nover the left lateral side of the chest. He did have trauma to this area recently, subsequently had a CT without evidence of fracture, pneumo or PE. Lungs are clear. No abdomial pain. No CVA tenderness. Considered ACS although he has no exertional components. He also has reproducible pain with palpation. No change in respiratory symptoms. No evidence of infectious etiology. He is s/p left BKA, no pain with palpation. RLE without edema, sensation intact, capillary refill intact. His hx and exam is not consistent with dissection, esophageal source, PE. Labs reviewed. No leukocytosis. No elevated troponin. discussed with patient. He agrees to repeat troponin. We did discuss goals of care. He advises that he has COLST form, would like to remain DNR/DNI, does not want to be in [facility] facility, does not want surgery. At the end of my shift, care transitioned to Dr. Almendarez with repeat troponin and disposition pending. Dr. Almendarez [id number] --please see ALYSSA Murphy's note for initial presentation, exam and plan. Case endorsed to follow-up on repeat troponin. Patient is an 82-year-old male who is DNR/DNI with a history of hypertension, hyperlipidemia, GERD, COPD, urinary retention, left BKA presents for left-sided chest pain for the past few days. He does endorse a fall 1 week ago in which he fell in the bathroom striking his left chest on the toilet. His left chest is tender to palpation. He denies any fever, cough, nausea, vomiting or shortness of breath. He admits to chronic dizziness. Patient endorses that he does not want to be admitted or go to a [facility] or any invasive interventions including surgery. Patient had a CT chest with IV contrast when seen here 1 week ago for weakness which was negative and had a CT abdomen and pelvis with IV contrast when seen here on 5 days ago for abdominal pain which was negative for acute findings as well. Repeat troponin negative. Patient would like to go home. His workup today includes 2 negative troponins, low magnesium which was repleted, a negative chest x-ray and reassuring EKG. EKG appears likely consistent with sinus rhythm and artifact rather than A flutter with no ischemic findings. Suspect his chest pain is musculoskeletal as it is reproducible with history of recent fall and blunt injury to left chest. History and presentation does not appear consistent with PE or dissection. He is hemodynamically stable. He still is noted to have a UTI so was advised to continue his Levaquin until finished. Advised to call the PCP tomorrow for follow-up and for referral for outpatient stress test if indicated. Usual and customary return precautions given prior to discharge. <Rosario Almendarez, DO - Last Filed: 06/18/22 07:39> Patient is a pleasant 82-year-old male, well-known to myself, with chief complaint of chest pain. States that chest pain began yesterday but has increased in frequency and severity. Not changed with movement but does increase with pressure applied to the chest. He denies any shortness of breath, does state that he does have some mild COPD but no drop in his O2 associated with this. Denies any abdominal pain although he does report that he has been having issues with urinary retention was here recently for the same. Previously had declined a catheter but is amenable to this at that time. He has been taking his antibiotics as prescribed. He denies any fevers or chills or chills. No cough. States that he had been constipated and not had a bowel movement in some time but had a bowel movement normally today. 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 Patient reports he is a DNR/DNI and would not want to have any surgical correction if required for found etiology. He does not want me to call anybody. Patient has been taking his medications as previously prescribed. Was given aspirin. Reports that he took 300 mg of trazodone about 1 hour prior to arrival. Dr. Almendarez [phone] --please see ALYSSA Murphy's note for initial presentation, exam and plan. Case endorsed to follow-up on repeat troponin. Patient is an 82-year-old male who is DNR/DNI with a history of hypertension, hyperlipidemia, GERD, COPD, urinary retention, left BKA presents for left-sided chest pain for the past few days. He does endorse a fall 1 week ago in which he fell in the bathroom striking his left chest on the toilet. His left chest is tender to palpation. He denies any fever, cough, nausea, vomiting or shortness of breath. He admits to chronic dizziness. Patient endorses that he does not want to be admitted or go to a [facility] or any invasive interventions including surgery. Patient had a CT chest with IV contrast when seen here 1 week ago for weakness which was negative and had a CT abdomen and pelvis with IV contrast when seen here on 5 days ago for abdominal pain which was negative for acute findings as well. Repeat troponin negative. Patient would like to go home. His workup today includes 2 negative troponins, low magnesium which was repleted, a negative chest x-ray and reassuring EKG. EKG appears likely consistent with sinus rhythm and artifact rather than A flutter with no ischemic findings. Suspect his chest pain is musculoskeletal as it is reproducible with history of recent fall and blunt injury to left chest. History and presentation does not appear consistent with PE or dissection. He is hemodynamically stable. He still is noted to have a UTI so was advised to continue his Levaquin until finished. Advised to call the PCP tomorrow for follow-up and for referral for outpatient stress test if indicated. Usual and customary return precautions given prior to discharge. Medical Records Medical records reviewed: Yes I reviewed the patient's medical records. Medical records narrative: 06/10/22 CT chest w/ IV contrast IMPRESSION: 1. No evidence of pulmonary embolism, thoracic aortic dissection or aneurysm.? 2. No acute pulmonary process. 06/12/22 CT abdomen/pelvis w/ IV contrast IMPRESSION: 1. No acute abdominal or pelvic process.? 2. Colonic diverticulosis but no evidence of acute diverticulitis. 3. Chronic changes in the abdomen and pelvis as described. Imaging Data Radiologic Study: Radiologist's impression: XR Chest Exam date and time: 06/17/2022 9:35 PM Age: 82 years old Clinical indication: Other: Chest pain TECHNIQUE: Imaging protocol: Radiologic exam of the chest. Views: 2 views. COMPARISON: CR XR CHEST 2V PA LATERAL 06/10/2022 6:07 PM FINDINGS: Lungs:? Mild left basilar opacity suspected. Pleural spaces:? Calcified pleural plaques bilaterally. No pleural effusion. No pneumothorax. Heart/Mediastinum: Unremarkable. No cardiomegaly. Bones/joints: Unremarkable. IMPRESSION: Mild left basilar opacity, grossly stable which may represent mild subsegmental atelectasis versus scarring Lab Data Lab results reviewed: Yes I reviewed the patient's lab results. Labs: 06/17/22 22:30 Urine - Reflex from Ua Urine Culture - Pending Laboratory Tests Range/Units 06/17/22 06/17/22 06/17/22 20:40 20:40 22:30 WBC (4.4-10.8) 10^3/uL 7.39 RBC (4.36-5.78) 10^6/uL 3.83 L Hgb (13.5-17.5) g/dL 10.7 L Hct (40.0-50.0) % 32.3 L MCV (80-95) fL 84 MCH (27.0-33.0) pg 27.9 MCHC (32.0-36.0) % 33.1 RDW (11.8-14.1) % 16.9 H Plt Count (130-400) 10^3/uL 237 MPV (8.0-11.0) fL 10.2 Immature Gran % 0.5 Neutrophils % 62.5 Lymphocytes % 23.8 Monocytes % 10.1 Eosinophils % 2.3 Basophils % 0.8 Nucleated RBC % (0.0-0.3) % 0.0 Absolute Neutrophils (1.2-6.7) 10^3/uL 4.61 Absolute Lymphocytes (1.2-3.4) 10^3/uL 1.76 Absolute Monocytes (0.1-0.8) 10^3/uL 0.75 Absolute Eosinophils (0.0-0.7) 10^3/uL 0.17 Absolute Basophils (0.0-0.2) 10^3/uL 0.06 Sodium (136-145) mmol/L 135 L Potassium (3.5-5.1) mmol/L 3.5 Chloride (98-107) mmol/L 101 Carbon Dioxide (21.0-32.0) mmol/L 27.6 Anion Gap (3-11) mmol/L 6.4 BUN (7-18) mg/dL 18 Creatinine (0.70-1.30) mg/dL 0.9 Est GFR (CKD-EPI 2020) (mL/min/1.73m2) 86.34 Glucose (74-106) mg/dL 92 Calcium (8.5-10.1) mg/dL 9.2 Magnesium (1.8-2.4) mg/dL 1.4 L Total Bilirubin (0.2-1.0) mg/dL 0.3 AST (15-37) U/L 20 ALT (16-63) U/L 15 L Alkaline Phosphatase (46-116) U/L 97 Troponin I (<or=60) ng/L < 50 Total Protein (6.4-8.2) g/dL 6.6 Albumin (3.4-5.0) g/dL 2.3 L Urine Color (Yellow) Yellow Urine Clarity (Clear) Clear Urine pH (5-8) 7.0 Ur Specific [place] (1.005-1.025) 1.020 Urine Protein (Negative) mg/dL Negative Urine Ketones (Negative) mg/dL Negative Urine Blood (Negative) Negative Urine Nitrite (Negative) Negative Urine Bilirubin (Negative) Negative Urine Urobilinogen (Up to 0.2) mg/dL 0.2 Ur Leukocyte Esterase (Negative) Small H Urine RBC (0-2) HPF 0-2 Urine WBC (0-5) HPF 10-20 H Ur Epithelial Cells (Negative) HPF Rare Urine Crystals (Negative) HPF Negative Urine Bacteria (Negative) HPF Few Urine Mucus (Negative) Negative Ur Culture Indicated? Yes Urine Glucose (Negative) mg/dL Negative Range/Units 06/17/22 23:25 WBC (4.4-10.8) 10^3/uL RBC (4.36-5.78) 10^6/uL Hgb (13.5-17.5) g/dL Hct (40.0-50.0) % MCV (80-95) fL MCH (27.0-33.0) pg MCHC (32.0-36.0) % RDW (11.8-14.1) % Plt Count (130-400) 10^3/uL MPV (8.0-11.0) fL Immature Gran % Neutrophils % Lymphocytes % Monocytes % Eosinophils % Basophils % Nucleated RBC % (0.0-0.3) % Absolute Neutrophils (1.2-6.7) 10^3/uL Absolute Lymphocytes (1.2-3.4) 10^3/uL Absolute Monocytes (0.1-0.8) 10^3/uL Absolute Eosinophils (0.0-0.7) 10^3/uL Absolute Basophils (0.0-0.2) 10^3/uL Sodium (136-145) mmol/L Potassium (3.5-5.1) mmol/L Chloride (98-107) mmol/L Carbon Dioxide (21.0-32.0) mmol/L Anion Gap (3-11) mmol/L BUN (7-18) mg/dL Creatinine (0.70-1.30) mg/dL Est GFR (CKD-EPI 2020) (mL/min/1.73m2) Glucose (74-106) mg/dL Calcium (8.5-10.1) mg/dL Magnesium (1.8-2.4) mg/dL Total Bilirubin (0.2-1.0) mg/dL AST (15-37) U/L ALT (16-63) U/L Alkaline Phosphatase (46-116) U/L Troponin I (<or=60) ng/L < 50 Total Protein (6.4-8.2) g/dL Albumin (3.4-5.0) g/dL Urine Color (Yellow) Urine Clarity (Clear) Urine pH (5-8) Ur Specific [place] (1.005-1.025) Urine Protein (Negative) mg/dL Urine Ketones (Negative) mg/dL Urine Blood (Negative) Urine Nitrite (Negative) Urine Bilirubin (Negative) Urine Urobilinogen (Up to 0.2) mg/dL Ur Leukocyte Esterase (Negative) Urine RBC (0-2) HPF Urine WBC (0-5) HPF Ur Epithelial Cells (Negative) HPF Urine Crystals (Negative) HPF Urine Bacteria (Negative) HPF Urine Mucus (Negative) Ur Culture Indicated? Urine Glucose (Negative) mg/dL ECG Data Attestation: I personally reviewed and interpreted this ECG (s) as follows: Interpretation: Rate of 69, normal axis, sinus. Appears likely more consistent with artifact rather than a flutter. Reassuring QTc and QRS. No ischemic findings. HPI <ALYSSA May - Last Filed: 06/18/22 20:53> General Date/Time Provider Initiated Documentation: 06/17/22 20:29 . Limitations to Documentation: no limitations . Information obtained by: patient, EMS, RN notes reviewed and old records reviewed . History of Present Illness 82 year old M presents to the emergency department with the chief complaint of chest pain, described as mild and mod erate, Quality is described as aching, and is localized to the chest. Patient reports no radiation. Patient started experiencing this day(s) (1) and it has been constant. No relieving factors improve symptom(s), No exacerbating factors reported (no exertional symptoms) . Patient notes chest pain; denies cough, fever/chills, headaches, malaise, nausea/vomiting, rash, shortness of breath and syncope. Patient did receive the following treatments prior to arrival, Aspirin Related Data Home Medications Medication Instructions Recorded Confirmed amlodipine 10 mg tablet 5 mg PO DAILY 10/25/14 06/17/22 omeprazole 20 mg capsule,delayed 40 mg PO DAILY AM 10/25/14 06/17/22 release furosemide 20 mg tablet 20 mg PO DAILY #0 tabs 07/17/21 06/17/22 albuterol sulfate 90 mcg/actuation 2 puff inhalation Q6H PRN 07/30/21 06/17/22 aerosol inhaler nitroglycerin 0.4 mg sublingual 0.4 mg sublingual Q5M PRN 07/30/21 06/17/22 tablet (Nitrostat) aspirin 81 mg tablet,delayed 81 mg PO DAILY 10/20/21 06/17/22 release atorvastatin 40 mg tablet 40 mg PO HS 10/20/21 06/17/22 calcium carbonate 500 mg-vitamin 2 tab PO DAILY 10/20/21 06/17/22 D3 5 mcg (200 unit) tablet (Calcium 500 + D) tiotropium bromide 2.5 2 puff inhalation DAILY 10/20/21 06/17/22 mcg/actuation mist for inhalation trazodone 100 mg tablet 300 mg PO HS 10/20/21 06/17/22 tamsulosin 0.4 mg capsule 0.4 mg PO DAILY AM 03/04/22 06/17/22 lidocaine 5 % topical patch 1 patch topical DAILY PRN pain #15 03/23/22 06/17/22 (Lidoderm) ea potassium chloride 20 mEq 10 meq PO DAILY 03/29/22 06/17/22 tablet,extended release levofloxacin 750 mg tablet 750 mg PO DAILY 7 days #7 tabs 06/12/22 06/17/22 levofloxacin 750 mg tablet 750 mg PO DAILY 7 days #7 tabs 06/12/22 06/17/22 magnesium 250 mg tablet 250 mg PO DAILY #10 tabs 06/12/22 06/17/22 Previous Rx's Medication Instructions Recorded furosemide 20 mg tablet 20 mg PO DAILY #0 tabs 07/17/21 lidocaine 5 % topical patch 1 patch topical DAILY PRN pain #15 03/23/22 (Lidoderm) ea levofloxacin 750 mg tablet 750 mg PO DAILY 7 days #7 tabs 06/12/22 levofloxacin 750 mg tablet 750 mg PO DAILY 7 days #7 tabs 06/12/22 magnesium 250 mg tablet 250 mg PO DAILY #10 tabs 06/12/22 Allergies Allergy/AdvReac Type Severity Reaction Status Date / Time No Known Allergies Allergy Verified 06/17/22 21:27 General Stated Complaint: Chest Pain EDITH: 3 Review of Systems <ALYSSA May - Last Filed: 06/18/22 20:53> Constitutional Constitutional: Reports as per HPI, Denies chills, Denies fever(s), Denies headache(s), Denies lethargy and Denies poor appetite Eyes Eyes: Denies change in vision ENT Ears, Nose, Mouth, and Throat: Denies dizziness and Denies headache(s) Cardiovascular Cardiovascular: Reports as per HPI Respiratory Respiratory: Reports as per HPI, Denies chest congestion, Denies cough, Denies pain on inspiration and Denies pain with cough Gastrointestinal Gastrointestinal: Reports as per HPI, Denies abdominal pain, Denies diarrhea, Denies nausea and Denies vomiting Genitourinary Genitourinary: Denies system reviewed and no additional complaints, except as documented (denies change in urinary habits) Musculoskeletal Musculoskeletal: Reports as per HPI and Denies back pain Integumentary/Breasts Skin/Breast: Reports as per HPI and Denies rash Neurologic Neurologic: Reports as per HPI, Denies dizziness and Denies headache(s) PFSH <ALYSSA May - Last Filed: 06/18/22 20:53> All Active Problems (Updated 06/17/22 @ 23:56 by Rosario Almendarez DO) Prostatitis (Acute) Anorexia (Acute) Acute urinary retention (Acute) Chest pain (Acute) UTI (urinary tract infection) (Acute) Lower urinary tract symptoms (LUTS) (Acute) Community acquired pneumonia (Acute) COPD (chronic obstructive pulmonary disease) (Chronic) Hyponatremia (Chronic) Pancytopenia (Acute) Chest pain (Acute) Alcohol abuse (Chronic) Dizziness (Acute) Stenosis of right internal carotid artery (Acute) Peripheral vertigo of both ears (Acute) Orthostatic hypotension (Acute) Peripheral neuropathy (Chronic) Thoracic vertebral fracture (Acute) Laceration of right thumb (Acute) Fracture of rib of left side (Chronic) Syncope (Acute) Pain (Acute) Hypertension (Chronic) COPD exacerbation (Acute) Intention tremor (Chronic) Insomnia (Acute) Wernicke encephalopathy (Acute) Pneumonia (Acute) Health insurance with [facility] (Acute) DNR (do not resuscitate) (Acute) Osteomyelitis of left foot (Acute) Anemia (Chronic) B12 deficiency anemia (Acute) Sepsis (Acute) Acute UTI (Acute) Continuous tobacco abuse (Chronic) Weak (Acute) Left ureteral stone (Acute) Medical History Alcohol abuse Per pt. 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, transfers independently Fracture of right hip pinning History of penile implant Hx of cholecystectomy Social History Smoking/Tobacco Use Status: Current every day Tobacco Type: cigars Smoking risk assessment performed?: Yes Alcohol Intake: former Drug use: Never Substance use type: does not use Do you feel safe at home: Yes Do you feel safe in your relationship?: Yes Exam <ALYSSA May - Last Filed: 06/18/22 20:53> Const General: cooperative, healthy appearing, comfortable, no acute distress and well developed Nutritional Appearance: average body habitus and well nourished Orientation: alert, awake and oriented x3 HENMT Head: normal to inspection Ears: hearing grossly normal bilaterally Mouth: moist mucous membranes Chest Chest: normal inspection of the chest, normal palpation of entire chest wall and no crepitus Resp Effort & Inspection: normal respiratory effort, able to speak in complete sentences and no respiratory distress Auscultation: clear to auscultation bilaterally, no rales, no rhonchi and no wheezes Cardio Rate: regular rate Rhythm: regular rhythm Heart Sounds: S1 normal and S2 normal GI Inspection: normal to inspection, no edema and non-distended Palpation: soft, no hepatosplenomegaly, not firm, no guarding, not rigid and nontender Auscultation: normal bowel sounds Back/Spine/Pelvis Back: no CVA tenderness Thoracic/Lumbar Spine: thoracic and lumbar spine normal to inspection Skin General skin exam: no rashes or lesions noted Trauma: no lacerations or abrasions Neuro General: patient alert, patient awake and patient oriented x3 Cognition: normal cognition Speech: speech normal Gait: normal gait Extrem General: normal to inspection, capillary refill normal, no pedal edema, no calf tenderness and normal gait Psych Appearance: grossly normal and well kempt Mental Status: mental status grossly normal Speech and Movement: speech and movement normal Course <ALYSSA May - Last Filed: 06/18/22 20:53> Vital Signs Vital signs: Vital Signs Temperature 36.4 C 06/17/22 20:23 Pulse 76 06/17/22 20:23 Respiratory Rate 18 06/17/22 20:23 Blood Pressure 118/50 L 06/17/22 20:23 Pulse Oximetry 96 06/17/22 20:23 Temperature 36.4 C 06/17/22 20:23 Pulse 76 06/17/22 20:23 Respiratory Rate 20 06/17/22 20:33 Respiratory Effort Normal 06/17/22 20:33 Respiratory Depth Normal 06/17/22 20:33 Respiratory Pattern Normal 06/17/22 20:33 Blood Pressure 118/50 L 06/17/22 20:23 Pulse Oximetry 96 06/17/22 20:23 Oxygen Delivery Method Room Air 06/17/22 20:23 Oxygen Flow Rate 0 06/17/22 20:23 Pain Level 6 06/17/22 20:23 Lab/Test Results Lab/Test Results: Laboratory Tests Range/Units 06/17/22 20:40 WBC (4.4-10.8) 10^3/uL 7.39 RBC (4.36-5.78) 10^6/uL 3.83 L Hgb (13.5-17.5) g/dL 10.7 L Hct (40.0-50.0) % 32.3 L MCV (80-95) fL 84 MCH (27.0-33.0) pg 27.9 MCHC (32.0-36.0) % 33.1 RDW (11.8-14.1) % 16.9 H Plt Count (130-400) 10^3/uL 237 MPV (8.0-11.0) fL 10.2 Immature Gran % 0.5 Neutrophils % 62.5 Lymphocytes % 23.8 Monocytes % 10.1 Eosinophils % 2.3 Basophils % 0.8 Nucleated RBC % (0.0-0.3) % 0.0 Absolute Neutrophils (1.2-6.7) 10^3/uL 4.61 Absolute Lymphocytes (1.2-3.4) 10^3/uL 1.76 Absolute Monocytes (0.1-0.8) 10^3/uL 0.75 Absolute Eosinophils (0.0-0.7) 10^3/uL 0.17 Absolute Basophils (0.0-0.2) 10^3/uL 0.06 Sign Out <ALYSSA May - Last Filed: 06/18/22 20:53> Sign Out Data: Sign Out Comment: Care transitioned to Dr. Almendarez with repeat troponin pending. Patient would like to be able to go home if negative. Last updated by Dafne Murphy PA at 06/17/22 23:46
[2022-06-17] MEDS: Lactated Ringers 500 ML IV (21:00)
[2022-06-17 21:10] LABS: ALT 15 U/L (16-63); AST 20 U/L (15-37); Albumin 2.3 g/dL (3.4-5.0); Alkaline Phosphatase 97 U/L (46-116); Anion Gap 6.4 mmol/L (3-11); BUN 18 mg/dL (7-18); Bilirubin, Total 0.3 mg/dL (0.2-1.0); CO2 27.6 mmol/L (21.0-32.0); CREATININE 0.9 mg/dL (0.70-1.30); Calcium 9.2 mg/dL (8.5-10.1); Chloride 101 mmol/L (98-107); Estimated GFR 86.34 (mL/min/1.73m2); Glucose 92 mg/dL (74-106); Magnesium 1.4 mg/dL (1.8-2.4); Potassium 3.5 mmol/L (3.5-5.1); Sodium 135 mmol/L (136-145); Total Protein 6.6 g/dL (6.4-8.2); Troponin I < 50 ng/L (<or=60)
--- NOTE | 2022-06-17 21:20 | NUR.NOTE ---
Nursing Note: pt unable ton urinate with urinal. Bladder scan: approx 110ml. Run fluids and then rescan bladder.
[2022-06-17] MEDS: Magnesium Oxide 400 MG TAB PO (21:42)
--- NOTE | 2022-06-17 21:52 | DI.VRAD_ITS ---
PROCEDURE INFORMATION: Exam: XR Chest Exam date and time: 06/17/2022 9:35 PM Age: 82 years old Clinical indication: Other: Chest pain TECHNIQUE: Imaging protocol: Radiologic exam of the chest. Views: 2 views. COMPARISON: CR XR CHEST 2V PA LATERAL 06/10/2022 6:07 PM FINDINGS: Lungs: Mild left basilar opacity suspected. Pleural spaces: Calcified pleural plaques bilaterally. No pleural effusion. No pneumothorax. Heart/Mediastinum: Unremarkable. No cardiomegaly. Bones/joints: Unremarkable. IMPRESSION: Mild left basilar opacity, grossly stable which may represent mild subsegmental atelectasis versus scarring Findings in keeping with prior asbestos exposure Dictated and Authenticated by: Antoni Bolaños MD. Ordering:SERGO Leos MD
[2022-06-17 22:37] LABS: Bilirubin Negative (Negative); Blood Negative (Negative); Clarity Clear (Clear); Glucose Negative (Negative); Ketones Negative (Negative); Leukocyte Esterase Small (Negative); Nitrite Negative (Negative); Urobilinogen 0.2 mg/dL (Up to 0.2)
[2022-06-17 22:47] LABS: Bacteria Few HPF (Negative); C & S Indicated? Yes; Crystals Negative HPF (Negative); Epithelial Cells Rare HPF (Negative); Mucus Negative (Negative); RBC 0-2 HPF (0-2)
[2022-06-17 23:48] LABS: Troponin I < 50 ng/L (<or=60)
[2022-06-18 00:26] VITALS: BP 110/64; PULSE 66; RESP 19; O2SAT 97
--- NOTE | 2022-06-20 14:17 | NUR.NOTE ---
Nursing Note: Accessed chart to look up whether or not on antibiotic.
== END 2022-06-18 00:29 | disposition home or self-care (01) ==
PROVIDERS: Physician Assistant; Emergency Provider Physician Assistant; PCP Internal Medicine
DX: N39.0 Urinary tract infection, site not specified (principal); R07.9 Chest pain, unspecified; I10 Essential (primary) hypertension; J44.9 Chronic obstructive pulmonary disease, unspecified; Z66 Do not resuscitate; Z79.82 Long term (current) use of aspirin
CPT/HCPCS: 36415; 80053; 93005; 96360; 96361; 99284; 71046; 81003; 81015; 83735; 84484; 85025; 87086; 93010

== ENCOUNTER 2022-12-06 15:05 | Inpatient (IN) | payer OTHER, SELFPAY ==
[2022-12-06] VITALS (40 sets, daily range): BP systolic 139–209; BP diastolic 52–113; PULSE 56–85; RESP 12–25; TEMP 36.8; O2SAT 90–98
--- NOTE | 2022-12-06 15:00 | RT.EKG_ITS ---
APPROVED REPORT Exam: Resting ECG Reason for Exam: dizziness Patient Location: E HR:59 bpm ECG Measurements Heart Rate 59 AXIS VT 170 P 62 QRSd 101 QRS 48 QT 432 T -22 QTc 429 Conclusion Sinus bradycardia...rate< [address] [place] [address]-T changes There are no significant changes compared to prior EKG performed on 06/12/2022 at 13:13.
--- NOTE | 2022-12-06 15:27 | W.ED.GENAD ---
Discharge Plan Disposition Patient Disposition: Admit to [facility] Condition: Stable Discharge Details Clinical Impression: Vertigo, Thrombosis of right vertebral artery, Bilateral carotid artery stenosis Primary Care Provider: Brad Morrow ED Provider: Carlos Dee Greenfield Meds and New Rx's Prescriptions: No Action nitroglycerin [Nitrostat] 0.4 mg tablet, sublingual 0.4 mg Sublingual Q5M PRN Patient Comments: doesn't have chest pain Rx Instructions: for chest pain amlodipine 10 MG tablet 5 mg PO DAILY omeprazole 20 MG capsule,delayed release(DR/EC) 40 mg PO DAILY AM Patient Comments: Pt. states that he doesn't take this medication. albuterol sulfate 90 mcg/actuation HFA aerosol inhaler 2 puff INHALATION Q6H PRN aspirin 81 mg Tablet,Delayed Release (Dr/Ec) 81 mg PO DAILY atorvastatin 40 mg Tablet 40 mg PO HS calcium carbonate-vitamin D3 [Calcium 500 + D] 500 mg-5 mcg (200 unit) Tablet 2 tab PO DAILY tiotropium bromide 2.5 mcg/actuation Mist 2 puff INHALATION DAILY trazodone 100 mg Tablet 300 mg PO HS tamsulosin 0.4 mg capsule 0.4 mg PO DAILY AM magnesium 250 mg tablet 250 mg PO DAILY Qty: 10 0RF furosemide 20 mg Tablet 20 mg PO DAILY Qty: 0 0RF lidocaine [Lidoderm] 5 % adhesive patch,medicated 1 patch TP DAILY PRN (Reason: pain) Qty: 15 0RF Rx Instructions: leave on most painful area for up to 12 hrs potassium chloride 20 mEq tablet extended release 10 meq PO DAILY Medical Decision Making Patient presenting with complaint of dizziness that is present especially if he puts his head back. He developed right lateral posterior neck pain. Maybe has a little bit of difficulty with left lateral gaze. He has no nystagmus. Finger-nose is normal. Consider possible right vertebral artery dissection. Do not feel this has anything to do with his known carotid stenosis. IV placed and fluids started. CTA head and neck ordered. Laboratory studies obtained. His EKG is sinus bradycardia and unchanged from previous. Patient's laboratory studies with a normal CBC, normal kidney function but low potassium which was replaced orally. Magnesium just slightly low. Urinalysis completely negative. CTA of the head and neck was discussed with radiology directly. CT head noncontrast without any acute changes. CTA shows reduced diameter of the right internal carotid artery as well as reduced diameter of the distal right vertebral artery. He has evidence of critical stenosis of the right internal carotid in the neck as well as severe stenosis of the proximal left internal carotid. 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 Also of note he has bilateral enhancing parotid nodules. [facility] They are at capacity and excepting new patients. Call placed to [facility] to discuss with neurology. Spoke with neurology at [facility] and reviewed previous imaging here from June 2020. The right internal carotid was described as severe and is now critical. The right vertebral artery was open and patent and now occluded. Left internal carotid with described as moderate and is now severe stenosis. Neurology does feel that a stroke work-up is indicated including MRI. There unfortunately is nothing that can be done regarding the occluded vertebral artery other than loading with aspirin and Plavix. Patient may potentially require carotid artery intervention but neurology at [facility] feels neuro work-up and evaluation initially is appropriate and would get vascular involved if needed. Unfortunately, they do not have capacity overnight to take the patient. I will reach out to [facility] to see if they have capacity. If not may have to keep here overnight and reach out to [facility] tomorrow after discharges. I did speak to neurology at [facility]. She concurs with [facility] assessment and does not feel that the patient needs emergent transfer tonight but that a complete stroke evaluation including MRI should be done. Re-discussed with hospitalist who requested consult with vascular surgery. Called [facility] back for vascular consult, spoke with Dr. Chou who also concurs with neurology assessment. Recommends dual platelet and statin while neuro evaluation is undertaken. Patient will therefore be admitted here and hospitalist will need to reach out to [facility] neurology tomorrow for bed availability. Medical Records Medical records reviewed: Yes I reviewed the patient's medical records. Medical records narrative: neuro note from 2020 regarding vertigo admission ECG Data Attestation: I personally reviewed and interpreted this ECG (s) as follows: Prior ECG tracings: available for review Interpretation: see EKG HPI General Mode of arrival: EMS. Date/Time Provider Initiated Documentation: 12/06/22 15:11. Information obtained by: patient. HPI Narrative: Patient presents to ED with complaint of dizziness which he describes as a spinning sensation. Patient reports that it began yesterday. It is worse today. He has developed right posterior lateral neck pain radiating up into the head but denies having headache. He has a little bit of blurry vision but denies double vision or loss of vision. He does not ambulate as he only has one leg and does not have a prosthesis yet. Denies any numbness or weakness. Denies any nausea vomiting. Has had previous episodes of dizziness but cannot really remember whether this is similar or different. States that this is persistent and seems worse if he puts his head back. [facility] and is scheduled to see vascular in March because of known carotid stenosis. They instructed him to call an ambulance and go to the nearest emergency department. Related Data Home Medications Medication Instructions Recorded Confirmed amlodipine 10 mg tablet 5 mg PO DAILY 10/25/14 06/17/22 omeprazole 20 mg capsule,delayed 40 mg PO DAILY AM 10/25/14 06/17/22 release furosemide 20 mg tablet 20 mg PO DAILY #0 tabs 07/17/21 06/17/22 albuterol sulfate 90 mcg/actuation 2 puff inhalation Q6H PRN 07/30/21 06/17/22 aerosol inhaler nitroglycerin 0.4 mg sublingual 0.4 mg sublingual Q5M PRN 07/30/21 06/17/22 tablet (Nitrostat) aspirin 81 mg tablet,delayed 81 mg PO DAILY 10/20/21 06/17/22 release atorvastatin 40 mg tablet 40 mg PO HS 10/20/21 06/17/22 calcium carbonate 500 mg-vitamin 2 tab PO DAILY 10/20/21 06/17/22 D3 5 mcg (200 unit) tablet (Calcium 500 + D) tiotropium bromide 2.5 2 puff inhalation DAILY 10/20/21 06/17/22 mcg/actuation mist for inhalation trazodone 100 mg tablet 300 mg PO HS 10/20/21 06/17/22 tamsulosin 0.4 mg capsule 0.4 mg PO DAILY AM 03/04/22 06/17/22 lidocaine 5 % topical patch 1 patch topical DAILY PRN pain #15 03/23/22 06/17/22 (Lidoderm) ea potassium chloride 20 mEq 10 meq PO DAILY 03/29/22 06/17/22 tablet,extended release magnesium 250 mg tablet 250 mg PO DAILY #10 tabs 06/12/22 06/17/22 Previous Rx's Medication Instructions Recorded furosemide 20 mg tablet 20 mg PO DAILY #0 tabs 07/17/21 lidocaine 5 % topical patch 1 patch topical DAILY PRN pain #15 03/23/22 (Lidoderm) ea magnesium 250 mg tablet 250 mg PO DAILY #10 tabs 06/12/22 Allergies Allergy/AdvReac Type Severity Reaction Status Date / Time No Known Allergies Allergy Verified 06/17/22 21:27 General Stated Complaint: Dizzy/Sync EDITH: 3 Review of Systems Narrative: per HPI PFSH All Active Problems (Updated 12/06/22 @ 22:28 by Carlos Dee MD) Vertigo (Acute) Thrombosis of right vertebral artery (Acute) Bilateral carotid artery stenosis (Acute) Lower urinary tract symptoms (LUTS) (Acute) Community acquired pneumonia (Acute) Hyponatremia (Chronic) Pancytopenia (Acute) Chest pain (Acute) Alcohol abuse (Chronic) Dizziness (Acute) Stenosis of right internal carotid artery (Acute) Peripheral vertigo of both ears (Acute) Orthostatic hypotension (Acute) Peripheral neuropathy (Chronic) Thoracic vertebral fracture (Acute) Laceration of right thumb (Acute) Fracture of rib of left side (Chronic) Syncope (Acute) Pain (Acute) Hypertension (Chronic) COPD exacerbation (Acute) Intention tremor (Chronic) Insomnia (Acute) Wernicke encephalopathy (Acute) Pneumonia (Acute) Health insurance with [facility] (Acute) DNR (do not resuscitate) (Acute) Osteomyelitis of left foot (Acute) Anemia (Chronic) B12 deficiency anemia (Acute) Acute UTI (Acute) Continuous tobacco abuse (Chronic) Left ureteral stone (Acute) Medical History Alcohol abuse Per pt. 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 Exam Narrative Exam Narrative: Const: WDWN eldelry male in NAD. HEENT: NC/AT. Normal facial exam. Eyes: Seems to have some difficulty with left lateral gaze, right is normal. No nystagmus. Neck: Supple. Trachea midline. Bilateral carotid bruits. Lungs: Normal respiratory effort. Lungs with few rhonchi only. Cor: RRR without murmur. Good radial pulses. GI: Soft. NT/ND. No guarding or rebound. Neuro: A+O x 3. Normal speech, mentation. Cranial nerves II - XII grossly intact. No gross motor or sensory deficit. FTN is normal. Ext: No C/C/E. L BKA. Course Vital Signs Vital signs: Vital Signs Temperature 98.2 F 12/06/22 15:05 Pulse 85 12/06/22 15:05 Respiratory Rate 22 12/06/22 15:05 Blood Pressure 141/54 H 12/06/22 15:05 Pulse Oximetry 98 12/06/22 15:05 Temperature 98.2 F 12/06/22 15:05 Temperature Source Oral 12/06/22 15:05 Pulse 85 12/06/22 15:05 Respiratory Rate 22 12/06/22 15:05 Blood Pressure 141/54 H 12/06/22 15:05 Blood Pressure Position Sitting 12/06/22 15:05 Pulse Oximetry 98 12/06/22 15:05 Oxygen Delivery Method Room Air 12/06/22 15:05 Oxygen Flow Rate 0 12/06/22 15:05 Pain Level 0 12/06/22 15:05
--- NOTE | 2022-12-06 15:30 | DI.CT_ITS ---
Exam(s) CT BRAIN NECK CTA EXAM: CT BRAIN NECK CTA CLINICAL HISTORY: vertigo with right posterior neck pain. TECHNIQUE: Imaging Protocol: Axial CT angiography was performed with multi-slice acquisition and mu lti-planar and 3D reconstructions. CONTRAST MATERIAL: Intravenous: Omnipaque 350 Contrast volume:structured data in ml COMPARISON: CT CT HEAD WO from 07/12/2021 FINDINGS: CT Head W/O and W contrast: Ventricles and Extra axial spaces: Normal in size and morphology for the patient's age. Hemorrhage: None. Cerebral parenchyma: Normal. Atrophy. No evidence of infarct or mass. White matter changes of sma ll-vessel disease. Brainstem/Cerebellum: Normal. Calvarium: Normal. Visualized Paranasal sinuses/Mastoids: Opacification of the left frontal sinus, new from prior. Comp lete opacification of the left maxillary sinus. There is now extension of soft tissue into the left nasal cavity which could represent nasal polyps. There is some expansion of the left nasal cavity. Findings appear to have increased from prior. Soft Tissues: Unremarkable. Enhancement: Normal. CTA Brain W: Internal Carotid Arteries: Petrous: Decreased caliber of the diameter with thumb reduced diameter of the foramen which could be developmental. Cavernous: Heavily calcified. Significant stenosis on the right. No significant stenosis on the lef t. Cerebral: Mild diffuse narrowing on the right. Middle Cerebral Arteries: Right: No aneurysm, occlusion or significant stenosis. Left: No aneurysm, occlusion or significant stenosis. Anterior Cerebral Arteries: Right: No aneurysm, occlusion or significant stenosis. Left: No aneurysm, occlusion or significant stenosis. Posterior cerebral Arteries: Right: No aneurysm, occlusion or significant stenosis. Left: No aneurysm, occlusion or significant stenosis. Vertebral Arteries: Right: Extremely diminutive caliber. Left: No aneurysm, occlusion or significant stenosis. Basilar Artery: No aneurysm, occlusion or significant stenosis. CTA Neck W: Common Carotid: Right: No dissection, occlusion or significant stenosis. Left: No dissection, occlusion or significant stenosis. External Carotid: Right: No dissection, occlusion or significant stenosis. Left: No dissection, occlusion or significant stenosis. Internal Carotid: Right: Multifocal areas critical stenosis of proximal internal carotid artery from the origin extend ing approximately 2 cm cephalad. Multifocal moderate areas of narrowing seen distally. Left: Severe calcified plaque common carotid bulb and proximal internal carotid artery. Severe steno sis of approximately 80 percent. Vertebral Artery: Right: Occluded from the origin through the C 3 level. Thin but patent above the C3 level. Left: No dissection, occlusion or significant stenosis. Lung Apices: Emphysematous changes. Bones: No acute abnormality. Soft Tissues: 2.5 x 1.5 by 3.1 centimeter enhancing mass seen on the left in the commercial door installer space, de ep to the pterygoid muscle and anterior to the jugular and carotid vessels. In addition to a normal appearing lymph node or nodule is seen lateral to the inferior border of the left mandible, at the in ferior border of the parotid. 2 additional enhancing masses seen in the inferior right parotid lobe. IMPRESSION: 1. CTA brain: Severely reduced diameter right internal carotid artery. Severely reduced diameter dis reina right vertebral artery. 2. Head CT: Severe sinus disease, increasing from prior. Left-sided apparent large nasal polyps. No evidence of infarct. 3. Multifocal areas of critical stenosis involving the right internal carotid artery. Multifocal mod erate stenosis seen distally. 4. Occlusion of the right vertebral body from the origin to the C3 level. Reduced diameter seen dist al to this level. 5. Severe stenosis of the proximal left internal carotid artery. 6. Bilateral enhancing, parotid nodules, greatest in the left commercial door installer space. 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 However malignancy not excluded. Findings called to Dr. Dee of the emergency department. Unexpected findings RADIATION DOSE DELIVERED: 2,075.52mGy.cm Total DLP DATA REPOSITORY: All CT scans at this facility are submitted to the National Radiology Data Registry (NRDR) Dose Index Registry (DIR) with the [employer] (A[employer]). RADIATION OPTIMIZATION: All CT scans at this facility use at least one of these dose optimization te chniques: automated exposure control; mA and/or kV adjustment per patient size (includes targeted exa ms where dose is matched to clinical indication); or iterative reconstruction.
[2022-12-06 16:27] LABS: Abs Immature Grans 0.01 10^3/uL (0.0-0.06); Absolute Basophil Count 0.08 10^3/uL (0.0-0.2); Absolute Lymphocyte Count 1.73 10^3/uL (1.2-3.4); Absolute Monocyte Count 0.55 10^3/uL (0.1-0.8); Basophils % 1.1; HCT 41.5 % (40.0-50.0); HGB 13.6 g/dL (13.5-17.5); Immature Grans % 0.1; Lymphocytes % 23.2; MCHC 32.8 % (32.0-36.0); MCV 92 fL (80-95); Monocytes % 7.4; Neutrophils % 60.2; Platelet Count 216 10^3/uL (130-400); RBC 4.53 10^6/uL (4.36-5.78); RDW 13.9 % (11.8-14.1); RDW-SD 47.2 fL; WBC 7.47 10^3/uL (4.4-10.8)
[2022-12-06] MEDS: Normal Saline 1,000 ML 1000 ML IV (16:35)
[2022-12-06 17:07] LABS: Bilirubin Negative (Negative); Blood Negative (Negative); Clarity Clear (Clear); Glucose Negative (Negative); Ketones Negative (Negative); Leukocyte Esterase Negative (Negative); Nitrite Negative (Negative); Urobilinogen 0.2 mg/dL (Up to 0.2); pH 6.5 (5-8)
[2022-12-06 17:07] LABS: ALT 7 U/L (16-63); AST 9 U/L (15-37); Albumin 2.8 g/dL (3.4-5.0); Alkaline Phosphatase 122 U/L (46-116); Anion Gap 4.7 mmol/L (3-11); BUN 5 mg/dL (7-18); Bilirubin, Total 0.3 mg/dL (0.2-1.0); CO2 31.3 mmol/L (21.0-32.0); CREATININE 0.8 mg/dL (0.70-1.30); Calcium 9.3 mg/dL (8.5-10.1); Chloride 103 mmol/L (98-107); Estimated GFR 89.47 (mL/min/1.73m2); Glucose 83 mg/dL (74-106); Magnesium 1.7 mg/dL (1.8-2.4); Sodium 139 mmol/L (136-145); Total Protein 7.1 g/dL (6.4-8.2); Troponin I < 50 ng/L (<or=60)
[2022-12-06] MEDS: Normal Saline - Diluent 50 ML VIAL IJ (17:33)
[2022-12-06] MEDS: Omnipaque 350 MG/ML 100 ML BTL 85 ML IJ (17:33)
[2022-12-06] MEDS: Normal Saline Flush 10 ML SYR IVP (17:34)
[2022-12-06] MEDS: Potassium Chloride 20 MEQ TABCR 40 MEQ PO (18:29)
[2022-12-06] MEDS: Clopidogrel 300 MG TAB PO (20:26)
[2022-12-06] MEDS: Aspirin 81 MG CHEW 324 MG CH (20:26)
--- NOTE | 2022-12-06 22:37 | W.PM.HP.N ---
Date of service: 12/06/22 Time of Service: 22:37 Assessment and Plan Assessment and plan (1) Vertigo: Start date: 12/06/22 Status: Acute Assessment and plan: This is an 82-year-old gentleman who [facility] presenting with acute vertiginous symptoms and acute right vertebral artery occlusion with new finding on CTA of the head and neck compared to CTA performed in 2020. Neurology and vascular surgery thinks that this is not an emergent situation and advise dual platelet therapy with this initiated in the ED. Plavix and aspirin will be continued daily and patient will have imaging with echocardiogram either locally or at [facility] if transfer is possible in the morning. Neurology will be called at [facility] in the morning for possible transfer. If patient has worsening symptoms repeat CT should be performed and more emergent transfer should be discussed. 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 He is a DNR/DNI. (2) Thrombosis of right vertebral artery: Start date: 12/06/22 Status: Acute Assessment and plan: Patient has acute vertiginous symptoms and most likely has a CVA with occlusion of his right vertebral artery. He also has some neck discomfort which may have been associated with his acute occlusion. Dual platelet therapy with follow-up with neurology and vascular surgery as discussed. (3) Bilateral carotid artery stenosis: Status: Chronic Assessment and plan: Patient has known carotid artery stenosis worse on the right than left and vascular surgery may see him sooner with his acute right vertebral artery occlusion. May be a candidate for surgical intervention to increase collateral flow in the cerebral circulation. (4) HTN (hypertension): Assessment and plan: Chronic stable with patient is antihypertensive to be held with permissive hypertension during this acute neurological event. (5) Hypomagnesemia: Status: Chronic Assessment and plan: IV magnesium repletion and follow-up labs. He is currently on oral therapy. (6) Hypokalemia: Status: Chronic Assessment and plan: IV and oral repletion with follow-up labs adjust as needed. (7) COPD (chronic obstructive pulmonary disease): Assessment and plan: Patient is not on rescue inhalers in the alf but has increased symptoms presently with albuterol nebulizer to be given as needed. He does have a long smoking history. History of Present Illness History of Present Illness Chief Complaint: Acute onset of dizziness with head tilting with a sensation of spinning Narrative: This is an 82-year-old male patient who resides at a local alf who is status post left BKA for peripheral vascular disease and has significant atherosclerotic arterial disease including carotid stenosis which is known and critical on the right presenting with acute onset of vertigo with head tilting and right neck pain. CT of the head and neck did reveal critical stenosis of the right carotid with a new occlusion of the right vertebral artery which was not seen in June 2020 on a CTA. [facility]. He denies any headache and had no other focal neurological complaints. Neurology was consulted at [facility] at [facility] and recommended dual platelet therapy with patient already on a baby aspirin been reloaded with aspirin and loaded with Plavix and to continue these daily. No urgent or emergent interventions were deemed necessary and both institutions were at capacity. Vascular surgery also was consulted and agreed with neurology's recommendations for dual platelet therapy and follow-up with imaging possibly at [facility] if bed becomes available over the weekend. He will need MRI of the brain along with echo with bubble study. Presently he has less dizziness and ruminates over his left BKA wandering in conversation. [facility] and is scheduled to see vascular surgery for his right carotid stenosis in March 2023 but will be seen sooner. He does have difficulty walking because of his left BKA. He is a DNR/DNI. Review of Systems Narrative: 13 point review of systems otherwise unrevealing or stable. Patient is slowly becoming more weak and less active at the alf. He does not wear his prosthesis status post left BKA. He does have a history of tobacco use does not on inhalers chronically have a slight wheeze this hospitalization. [facility] All Active Problems (Updated 12/07/22 @ 03:51 by Tyler Earl) Hypokalemia (Chronic) Vertigo (Acute) Thrombosis of right vertebral artery (Acute) Bilateral carotid artery stenosis (Chronic) Lower urinary tract symptoms (LUTS) (Acute) Community acquired pneumonia (Acute) Hypomagnesemia (Chronic) Hyponatremia (Chronic) Pancytopenia (Acute) Chest pain (Acute) Alcohol abuse (Chronic) Dizziness (Acute) Stenosis of right internal carotid artery (Acute) Peripheral vertigo of both ears (Acute) Orthostatic hypotension (Acute) Peripheral neuropathy (Chronic) Thoracic vertebral fracture (Acute) Laceration of right thumb (Acute) Fracture of rib of left side (Chronic) Syncope (Acute) Pain (Acute) Hypertension (Chronic) COPD exacerbation (Acute) Intention tremor (Chronic) Insomnia (Acute) Wernicke encephalopathy (Acute) Pneumonia (Acute) Health insurance with [employer] (Acute) DNR (do not resuscitate) (Acute) Osteomyelitis of left foot (Acute) Anemia (Chronic) B12 deficiency anemia (Acute) Acute UTI (Acute) Continuous tobacco abuse (Chronic) Left ureteral stone (Acute) Medical History Alcohol abuse Per pt. 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 Meds Allergies and Home Medications Allergies Allergy/AdvReac Type Severity Reaction Status Date / Time No Known Allergies Allergy Verified 06/17/22 21:27 Home Medications Medication Instructions Recorded Confirmed Type amlodipine 10 mg tablet 5 mg PO DAILY 10/25/14 06/17/22 History omeprazole 20 mg capsule,delayed 40 mg PO DAILY AM 10/25/14 06/17/22 History release furosemide 20 mg tablet 20 mg PO DAILY #0 tabs 07/17/21 06/17/22 Rx albuterol sulfate 90 mcg/actuation 2 puff inhalation Q6H PRN 07/30/21 06/17/22 History aerosol inhaler nitroglycerin 0.4 mg sublingual 0.4 mg sublingual Q5M PRN 07/30/21 06/17/22 History tablet (Nitrostat) aspirin 81 mg tablet,delayed 81 mg PO DAILY 10/20/21 06/17/22 History release atorvastatin 40 mg tablet 40 mg PO HS 10/20/21 06/17/22 History calcium carbonate 500 mg-vitamin 2 tab PO DAILY 10/20/21 06/17/22 History D3 5 mcg (200 unit) tablet (Calcium 500 + D) tiotropium bromide 2.5 2 puff inhalation DAILY 10/20/21 06/17/22 History mcg/actuation mist for inhalation trazodone 100 mg tablet 300 mg PO HS 10/20/21 06/17/22 History tamsulosin 0.4 mg capsule 0.4 mg PO DAILY AM 03/04/22 06/17/22 History lidocaine 5 % topical patch 1 patch topical DAILY PRN pain #15 03/23/22 06/17/22 Rx (Lidoderm) ea potassium chloride 20 mEq 10 meq PO DAILY 03/29/22 06/17/22 History tablet,extended release magnesium 250 mg tablet 250 mg PO DAILY #10 tabs 06/12/22 06/17/22 Rx Exam Narrative Exam Narrative: General: Patient appears older than stated age, unkempt and chronically ill. He has a flattened affect but is alert and oriented to person, place and time. He is in no acute distress. He is very talkative. HEENT: Normocephalic, coarsened facial features, eyes with pupils equal and react to light symmetrically with extraocular movement tachycardia sclera anicteric. There is no nystagmus. Oropharynx with slightly dry mucosa and poor dentition. Neck: Supple without JVD. No palpable carotid thrills. Back: Kyphotic without CVA tenderness. Lungs: Bronchovesicular breath sounds diffusely with occasional rhonchi and scant expiratory wheeze with slight increased expiratory phase. No focalizing rales. Heart: Irregular rhythm with normal rate at times bradycardic. No appreciable murmur or gallop. Breast: Exam deferred. Abdomen: Normal contour, soft and nontender to palpation with no palpable hepatosplenomegaly. Bowel sounds positive all quadrants. Genitalia/rectal: Exam deferred. Extremities: Without clubbing, cyanosis or grossly pitting edema. Left leg with status post BKA stump wrapped in an Kapil bandage. Decreased capillary refill. Joints have fair range of motion. Muscle atrophy diffusely. Skin: Severe actinic changes over sun exposed areas with hyperpigmentation and hypopigmentation but no suspicious lesions noted. Otherwise normal color, warm and dry. Neuro: Cranial nerves II through XII appear to be grossly intact. No nystagmus noted as stated. No focalizing motor deficits. No tremor. Screening neurological exam done in the ED was unrevealing except for patient complaints of vertiginous symptoms. Psych: Flattened affect with normal mood. No abnormal thought processes. He does somewhat feel victimized. Remote and recent memory grossly intact. Results Imaging Imaging Studies: Exam(s) CT BRAIN ? NECK CTA EXAM: ? CT BRAIN ? NECK CTA CLINICAL HISTORY: ? vertigo with right posterior neck pain. ? TECHNIQUE:? Imaging Protocol:? Axial CT angiography was performed with multi-slice acquisition and multi-planar and 3D reconstructions. CONTRAST MATERIAL:? Intravenous: Omnipaque 350 Contrast volume:structured data in ml COMPARISON:? CT CT HEAD WO from 07/12/2021 FINDINGS: CT Head W/O and W contrast: Ventricles and Extra axial spaces: Normal in size and morphology for the patient's age. Hemorrhage: None. Cerebral parenchyma: Normal. ? Atrophy.? No evidence of infarct or mass.? White matter changes of small-vessel disease. Brainstem/Cerebellum: Normal. Calvarium: Normal. Visualized Paranasal sinuses/Mastoids: Opacification of the left frontal sinus, new from prior.? Complete opacification of the left maxillary sinus.? There is now extension of soft tissue into the left nasal cavity which could represent nasal polyps.? There is some expansion of the left nasal cavity.? Findings appear to have increased from prior.? Soft Tissues: Unremarkable. Enhancement: Normal. CTA Brain W: Internal Carotid Arteries: Petrous: Decreased caliber of the diameter with thumb reduced diameter of the foramen which could be developmental. Cavernous: Heavily calcified.? Significant stenosis on the right.? No significant stenosis on the left. Cerebral: Mild diffuse narrowing on the right. Middle Cerebral Arteries: Right:? No aneurysm, occlusion or significant stenosis. Left:? No aneurysm, occlusion or significant stenosis. Anterior Cerebral Arteries: Right:? No aneurysm, occlusion or significant stenosis. Left:? No aneurysm, occlusion or significant stenosis. Posterior cerebral Arteries: Right:? No aneurysm, occlusion or significant stenosis. Left:? No aneurysm, occlusion or significant stenosis. Vertebral Arteries: Right:? Extremely diminutive caliber.? Left:? No aneurysm, occlusion or significant stenosis. Basilar Artery:? No aneurysm, occlusion or significant stenosis. CTA Neck W: Common Carotid: Right:? No dissection, occlusion or significant stenosis. Left:? No dissection, occlusion or significant stenosis. External Carotid: Right:? No dissection, occlusion or significant stenosis. Left:? No dissection, occlusion or significant stenosis. Internal Carotid: Right:? Multifocal areas critical stenosis of proximal internal carotid artery from the origin extending approximately 2 cm cephalad.? Multifocal moderate areas of narrowing seen distally.? Left: Severe calcified plaque common carotid bulb and proximal internal carotid artery.? Severe stenosis of approximately 80 percent. Vertebral Artery: Right:? Occluded from the origin through the C 3 level.? Thin but patent above the C3 level. Left:? No dissection, occlusion or significant stenosis. Lung Apices: Emphysematous changes. ? Bones: No acute abnormality. Soft Tissues: 2.5 x 1.5 by 3.1 centimeter enhancing mass seen on the left in the mannequin molder space, deep to the pterygoid muscle and anterior to the jugular and carotid vessels.? In addition to a normal appearing lymph node or nodule is seen lateral to the inferior border of the left mandible, at the inferior border of the parotid.? 2 additional enhancing masses seen in the inferior right parotid lobe. IMPRESSION: 1. CTA brain: Severely reduced diameter right internal carotid artery.? Severely reduced diameter distal right vertebral artery. 2. Head CT: Severe sinus disease, increasing from prior.? Left-sided apparent large nasal polyps.? No evidence of infarct. 3. Multifocal areas of critical stenosis involving the right internal carotid artery.? Multifocal moderate stenosis seen distally. 4. Occlusion of the right vertebral body from the origin to the C3 level.? Reduced diameter seen distal to this level. 5. Severe stenosis of the proximal left internal carotid artery. 6. Bilateral enhancing,? parotid nodules, greatest in the left mannequin molder space.? 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 However malignancy not excluded. Labs 12/06/22 16:17 12/06/22 16:42 Labs: Laboratory Results - last 24 hr 12/06/22 12/06/22 12/06/22 16:17 16:17 16:42 WBC 7.47 RBC 4.53 Hgb 13.6 Hct 41.5 MCV 92 MCH 30.0 MCHC 32.8 RDW 13.9 Plt Count 216 MPV 11.0 Immature Gran % 0.1 Neutrophils % 60.2 Lymphocytes % 23.2 Monocytes % 7.4 Eosinophils % 8.0 Basophils % 1.1 Nucleated RBC % 0.0 Absolute Neutrophils 4.50 Absolute Lymphocytes 1.73 Absolute Monocytes 0.55 Absolute Eosinophils 0.60 Absolute Basophils 0.08 Sodium Cancelled 139 Potassium Cancelled 3.0 L Chloride Cancelled 103 Carbon Dioxide Cancelled 31.3 Anion Gap Cancelled 4.7 BUN Cancelled 5 L Creatinine Cancelled 0.8 Est GFR (CKD-EPI 2020) Cancelled 89.47 Glucose Cancelled 83 Calcium Cancelled 9.3 Magnesium Cancelled 1.7 L Total Bilirubin Cancelled 0.3 AST Cancelled 9 L ALT Cancelled 7 L Alkaline Phosphatase Cancelled 122 H Troponin I Cancelled < 50 Total Protein Cancelled 7.1 Albumin Cancelled 2.8 L Urine Color Urine Clarity Urine pH Ur Specific [place] Urine Protein Urine Ketones Urine Blood Urine Nitrite Urine Bilirubin Urine Urobilinogen Ur Leukocyte Esterase Urine Glucose 12/06/22 17:00 WBC RBC Hgb Hct MCV MCH MCHC RDW Plt Count MPV Immature Gran % Neutrophils % Lymphocytes % Monocytes % Eosinophils % Basophils % Nucleated RBC % Absolute Neutrophils Absolute Lymphocytes Absolute Monocytes Absolute Eosinophils Absolute Basophils Sodium Potassium Chloride Carbon Dioxide Anion Gap BUN Creatinine Est GFR (CKD-EPI 2020) Glucose Calcium Magnesium Total Bilirubin AST ALT Alkaline Phosphatase Troponin I Total Protein Albumin Urine Color Yellow Urine Clarity Clear Urine pH 6.5 Ur Specific [place] 1.010 Urine Protein Negative Urine Ketones Negative Urine Blood Negative Urine Nitrite Negative Urine Bilirubin Negative Urine Urobilinogen 0.2 Ur Leukocyte Esterase Negative Urine Glucose Negative Last Vital Signs Temp 36.8 C 12/06/22 15:05 Pulse 64 12/06/22 20:01 Resp 15 12/06/22 18:10 BP 193/73 H 12/06/22 20:01 Pulse Ox 96 12/06/22 20:01 Time Spent Time spent with Patient: >75 minutes Time was spent: preparing to see the patient(eg.review tests), obtaining and/or reviewing separately otained hiistory, ordering medications,tests, procedures, referring, communicating with other health career services assistant, indepentently interpreting results, counseling the patient and care coordination
[2022-12-06 23:36] LABS: TSH (W/Ref FT4) 1.08 uIU/mL (0.36-3.74)
[2022-12-07] VITALS (14 sets, daily range): BP systolic 153–182; BP diastolic 67–84; PULSE 57–72; RESP 15–23; TEMP 36.1–37.9; O2SAT 92–96
--- NOTE | 2022-12-07 | DI.CT_ITS ---
Exam(s) CT HEAD WO EXAM: CT HEAD WO CLINICAL HISTORY: worsening vertigo, R vertebral artery occlusion. TECHNIQUE: Imaging Protocol: Axial computed tomography images with coronal and sagittal reformatted images were created and reviewed COMPARISON: CT CT BRAIN NECK CTA from 12/06/2022 FINDINGS: Ventricles and Extra axial spaces: Normal in size and morphology for the patient's age. Hemorrhage: None. Cerebral parenchyma: Atrophy. No evidence of acute infarct or mass. Midline shift: None. Brainstem/Cerebellum: Normal. Calvarium: Normal. Visualized Paranasal sinuses/Mastoids: Severe left maxillary sinus disease again noted. Opacificatio n of left nasal cavity and left ethmoid air cells. Opacification of left frontal sinus. Old nasal f ractures. Soft Tissues: Unremarkable. IMPRESSION: No acute intracranial process. Severe sinus disease again noted. polyp versus mass again noted in the left nasal cavity. RADIATION DOSE DELIVERED: 771.62mGy.cm Total DLP DATA REPOSITORY: All CT scans at this facility are submitted to the National Radiology Data Registry (NRDR) Dose Index Registry (DIR) with the [employer] ([employer]). RADIATION OPTIMIZATION: All CT scans at this facility use at least one of these dose optimization te chniques: automated exposure control; mA and/or kV adjustment per patient size (includes targeted exa ms where dose is matched to clinical indication); or iterative reconstruction.
[2022-12-07] MEDS: Atorvastatin 40 MG TAB 80 MG PO ×2 (02:20→21:11)
[2022-12-07] MEDS: traZODone 100 MG TAB 300 MG PO ×2 (02:20→21:11)
[2022-12-07] MEDS: MAGNESIUM SULFATE 2 GM/50 ML BAG IVPB (02:20)
--- NOTE | 2022-12-07 02:45 | RT.EKG_ITS ---
APPROVED REPORT Exam: Resting ECG Reason for Exam: arrythmias, bradycardia Patient Location: I HR:68 bpm ECG Measurements Heart Rate 68 AXIS FL 180 P 56 QRSd 91 QRS 54 QT 416 T -3 QTc 443 Conclusion Sinus rhythm...normal P axis, V-rate 50- 99 Normal Electrocardiogram
[2022-12-07 06:39] LABS: HCT 36.5 % (40.0-50.0); HGB 12.2 g/dL (13.5-17.5); MCH 30.7 pg (27.0-33.0); MCHC 33.4 % (32.0-36.0); MCV 92 fL (80-95); MPV 11.2 fL (8.0-11.0); Platelet Count 209 10^3/uL (130-400); RBC 3.98 10^6/uL (4.36-5.78); RDW-SD 47.6 fL; WBC 7.14 10^3/uL (4.4-10.8)
[2022-12-07 06:59] LABS: ALT 10 U/L (16-63); AST 10 U/L (15-37); Albumin 2.6 g/dL (3.4-5.0); Alkaline Phosphatase 114 U/L (46-116); Anion Gap 8.1 mmol/L (3-11); BUN 9 mg/dL (7-18); Bilirubin, Total 0.3 mg/dL (0.2-1.0); CO2 26.9 mmol/L (21.0-32.0); CREATININE 0.8 mg/dL (0.70-1.30); Calcium 9.1 mg/dL (8.5-10.1); Chloride 107 mmol/L (98-107); Estimated GFR 89.47 (mL/min/1.73m2); Glucose 106 mg/dL (74-106); Potassium 3.2 mmol/L (3.5-5.1); Sodium 142 mmol/L (136-145); Total Protein 6.4 g/dL (6.4-8.2)
[2022-12-07] MEDS: Tiotropium Bromide-Respimat 10 PUFF INH 2 PUFF IH (08:00)
[2022-12-07 08:22] LABS: Lab Add On Test DONE
[2022-12-07 08:36] LABS: Calculated LDL 119 mg/dL (<100); Cholesterol 182 mg/dL (<200); HDL Cholesterol 28 mg/dL (40-60); Triglyceride 177 mg/dL (<150)
--- NOTE | 2022-12-07 09:15 | RT.EKG_ITS ---
APPROVED REPORT Exam: Resting ECG Reason for Exam: Aflutter vs SR, ?Acute CVA Patient Location: I HR:62 bpm ECG Measurements Heart Rate 62 AXIS MD 187 P 30 QRSd 92 QRS 51 QT 449 T 0 QTc 456 Conclusion Sinus rhythm...normal P axis, V-rate 50- 99 Borderline T wave abnormalities...T/QRS ratio < 1/20 or flat T
[2022-12-07] MEDS: Magnesium Gluconate 500 MG TAB 250 MG PO (10:18)
[2022-12-07] MEDS: Potassium Chloride 10 MEQ TABCR PO (10:18)
[2022-12-07] MEDS: Pantoprazole 40 MG TABCR PO (10:18)
[2022-12-07] MEDS: Aspirin E.C. 81 MG TABEC PO (10:19)
[2022-12-07] MEDS: Clopidogrel 75 MG TAB PO (10:19)
[2022-12-07] MEDS: Potassium Chloride 20 MEQ TABCR 40 MEQ PO (10:35)
--- NOTE | 2022-12-07 11:58 | PT.INIE ---
Date of service: 12/07/22 Time of Service: 11:56 PT Notes Visit Reasons: Acute vertigo,Right Vertebral Artery Occlusion,Car Inpatient Physical Therapy Evaluation Date:?12/07/2021 Referring Doctor:? Jenny Dowd MD PT Orders: PT CONSULT: Limited ability Precautions:?Fall.? Activity as tolerated. Patient Profile/Admitting Diagnosis:? Patient is an 82-year-old male patient who presented to the ED on 12/06/22 dizziness, neck pain, and generalized weakness.? Patient is diagnosed with thromobosis of R vertebral artery, vertigo, B carotid artery stenosis, HTN, hypomagnesemia, hypokalemia, and COPD. PMHX: All Active Problems?(Updated 12/07/22 @ 03:51 by Tyler Earl) Hypokalemia (Chronic) Vertigo (Acute) Thrombosis of right vertebral artery (Acute) Bilateral carotid artery stenosis (Chronic) Lower urinary tract symptoms (LUTS) (Acute) Community acquired pneumonia (Acute) Hypomagnesemia (Chronic) Hyponatremia (Chronic) Pancytopenia (Acute) Chest pain (Acute) Alcohol abuse (Chronic) Dizziness (Acute) Stenosis of right internal carotid artery (Acute) Peripheral vertigo of both ears (Acute) Orthostatic hypotension (Acute) Peripheral neuropathy (Chronic) Thoracic vertebral fracture (Acute) Laceration of right thumb (Acute) Fracture of rib of left side (Chronic) Syncope (Acute) Pain (Acute) Hypertension (Chronic) COPD exacerbation (Acute) Intention tremor (Chronic) Insomnia (Acute) Wernicke encephalopathy (Acute) Pneumonia (Acute) Health insurance with [facility] [employer] (Acute) DNR (do not resuscitate) (Acute) Osteomyelitis of left foot (Acute) Anemia (Chronic) B12 deficiency anemia (Acute) Acute UTI (Acute) Continuous tobacco abuse (Chronic) Left ureteral stone (Acute) Medical History? Alcohol abuse Per pt. states he hasnt drank for 2 years COPD (chronic obstructive pulmonary disease) GERD (gastroesophageal reflux disease) HTN (hypertension) Hx of hyperlipidemia Left ureteral stone Orthostatic hypotension Stenosis of both internal carotid arteries Vertigo Surgical History? 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 Patient is modified independent using motorized wheelchair for all transfers and indoor/outdoor mobility.? He has a lady who comes in once or twice a week to perform house chores and laundry. Equipment Owned/DME: Motorized wheelchair, 4WW Subjective:? Tyler only agreed to bed level exercises.? Complained of neck pain and headache with sitting at edge of bed earlier today, did not want that happening again so refused to sit back up. Did not bring his L BKA prosthesis, refuses to try to stand up without it. Questioning why he is where when he could take the same medications at home but understood the explanation that there may be a plan to place him in a tertiary hospital and or move his vascular appointment in light of new medical issue he has. He is agreeable to not losing his strength while he is her and is willing to do be dlevel exercises. Objective:? General Observation:? ?Patient resting in bed. L transtibial amputation residual limb conical with incision well-healed. Telemetry monitoring in place.?? Mental Status: Alert and oriented x3 Pain: neck and head ache with sitting up Vital Signs:?WNL as closely monitored by nursing staff. ROM: Right Upper Extremity: ? Shoulder Flexion WFL. Shoulder abduction WFL. Elbow flexion WFL. Wrist flexion WFL. Functional opening and closing of hand WFL. Left Upper Extremity:? Shoulder Flexion WFL. Shoulder abduction WFL. Elbow flexion WFL. Wrist flexion WFL. Functional opening and closing of hand WFL.? Pain at end range of L shoulder ROM. Right Lower Extremity: Hip flexion WFL. Hip abduction WFL. Knee flexion WFL. Ankle dorsiflexion WFL. Ankle plantarflexion WFL. Left Lower Extremity: Hip flexion WFL. Hip abduction WFL. Knee flexion 10 degrees to 90 degrees. Knee extensors -10 to 90 degrees.? Ankle dorsiflexion N/A. Ankle plantarflexion N/A. Strength: Right Upper Extremity: Shoulder flexors 4/5. Shoulder abductors 4-/5. Elbow flexors 4/5. Elbow extensors 4/5. Final Operations Technician strong. Left Upper Extremity: Shoulder flexors 4/5. Shoulder abductors 4-/5. Elbow flexors 4/5. Elbow extensors 4/5. Final Operations Technician strong. Right Lower Extremity: Hip flexors 4-/5. Hip abductors 4-/5. Knee flexors 4-/5. Knee extensors 4-/5. Ankle dorsiflexors 4-/5. Ankle plantarflexors 4-/5. Left Lower Extremity: Hip flexors 4-/5. Hip abductors 4-/5. Knee flexors 3-/5. Knee extensors 3-5. Ankle dorsiflexors N/A. Ankle plantarflexors N/A. Sensation:? Diminished sensation bilateral lower extremities secondary to peripheral neuropathy.? Bed Mobility/Transfers:?? Supine to sit: unbale to tolerate edge of bed sitting due to worsening headache and neck pain. ? Gait:? Not assessed. Patient gets dizzy with increaased headache upon sitting at edge of bed. Balance:? Static Sitting: Normal Dynamic Sitting: Good Static Standing: Unable Dynamic Standing: Unable Special Tests: Mobility Limitations Standardized Measure [facility] 6 clicks Basic Mobility Inpatient Short Form: Raw Score: 15 ? ? ? Standardized Score: 58% deficit? Informed Consent/Education:? Patient was instructed in purpose of PT consult and plan of care. Agreeable to proceed with established PT POC to achieve personal goals. Assessment:?? Patient is an 82-year-old male patient who presented to the ED on 12/06/22 dizziness, neck pain, and generalized weakness.? Patient is diagnosed with thromobosis of R vertebral artery, vertigo, B carotid artery stenosis, HTN, hypomagnesemia, hypokalemia, and COPD. Patient presents with clinical signs and symptoms consistent with current/admitting diagnoses sepsis and osteomyelitis left foot that have resulted to mobility limitations, gait instability, generalized weakness, and overall ADL decline as demonstrated by the following impairment level findings: 1.? Decreased strength to B LE major muscle groups 2.? Impaired standing balance 3.? Impaired activity tolerance 4.? Swelling in Rleg Impairments are contributing to the following functional limitations: 1.? Decline in transfer skills 2.? Inability to ambulate due to R leg sweeling and L BKA 3.? Increased completion time for mobility ADL performance 4.? Increased risk for falls 5.? Increased risk for further skin breakdown/infection Patient is assessed as a [id number] moderate complexity based on the following: History: 82-year-old male with past medical history as indicated above Examination: Demonstrable impairment in strength, balance, and mobility level with underlying impairments and functional limitations as exhibited above as well as deficit score of 58% utilizing the [facility] Mobility Inpatient Short Form Presentation: Evolving Decision Makin moderate complexity Goals: Goals X1 week 1. Supine-Sit independent 2. Sit-Supine independent 3. Sit-Stand independent 4. Stand-Sit independent 5. Bed-Chair independent with sit-squat transfer after set up 6. Chair-Bed supervision with sit-squat transfer after set up Plan of Care/Treatment Plan: 1-2x/day, 7 days/week x 1 week. Plan of care has been reviewed with the STAMP ANALYST providing the service under Physical Therapy direction. Initiate Physical Therapy intervention for strengthening, bed mobility, transfers, gait, stairs, balance training, use of assistive device. DISCHARGE RECOMMENDATIONS:?? [X]? HH PT vs. SNF based on ability to progress towards goals. ? TREATMENT CODE/TIME: 72427 x 20 minutes,? 03848 x 12 minutes beginning at 11:28 AM. Thank you for the opportunity to participate in the care of this patient. Cat Salmeron PT, DPT, CLT [facility] [place], [place]
[2022-12-07] MEDS: Acetaminophen 325 MG TAB PO (15:40)
[2022-12-07 16:02] LABS: Bilirubin Negative (Negative); Blood Negative (Negative); Clarity Clear (Clear); Glucose Negative (Negative); Ketones Negative (Negative); Leukocyte Esterase Negative (Negative); Nitrite Negative (Negative); pH 6.5 (5-8)
--- NOTE | 2022-12-07 16:35 | W.PM.PROGNOT ---
Date of Service Date of service: 12/07/22 Time of Service: 16:35 Assessment and Plan Assessment and plan (1) Vertigo: Start date: 12/06/22 Status: Acute Assessment and plan: Known h/o B carotid stenosis and vertebral A occlusion. The question is whether the vertigo is related and if he may have had a posterior CVA. Symptoms are worse today. No beds at [facility], and the patient is refusing xfer elsewhere. Repeat CT head. Continue asa, plavix, statin. Obtain neurology c/s. Reattempt transfer to [facility]. Trial meclizine; consider a benzodiazepine. (2) Thrombosis of right vertebral artery: Start date: 12/06/22 Status: Acute Assessment and plan: as above (3) Fever: Status: Acute Assessment and plan: Obtain a FLUVID test, CXR, UA, blood cultures. Also, order IS. (4) Bilateral carotid artery stenosis: Status: Chronic Assessment and plan: As above (5) HTN (hypertension): Assessment and plan: Given worsening symptoms, would continue permissive hypertension strategy. (6) Hypomagnesemia: Status: Chronic Assessment and plan: Magnesium improved to 2.0 on this am's labs. Will recheck in am. (7) Hypokalemia: Status: Chronic Assessment and plan: Replete. (8) COPD (chronic obstructive pulmonary disease): Assessment and plan: The patient denies worsening of his sx. However, given the fever, we are obtaining a CXR. No change to the regimen at this time. (9) DVT prophylaxis: Status: Acute Assessment and plan: Sc enoxaparin (10) Discharge planning issues: Status: Acute Assessment and plan: DNR/DNI Continues to require hospitalization. No beds at [facility] - reattempt transfer tomorrow. Subjective Subjective Interval history since last seen: Mr Pratt states that his vertigo is worse today. No beds at [facility]. He does not want to go to [facility]. He wants us to try [facility] again tomorrow. We also discussed that we should have availability for echos and MRI and possibly neurology on Friday. Temp 37.9. He actually is very surprised that his chart says that his respiratory symptoms have been getting worse. He doesn't think so. He states his cough is what it's always been and is productive of white sputum, which it always is. Denies dizziness at rest - only when he tries to stand up. Denies CP, SOB, n/v. Exam Narrative Exam Narrative: General: Pleasant elderly male who does sound congested, does not look ill, however, A&Ox3, NAD HEENT: I am unable to evaluate extraocular movements because the patient states he has a difficulty with following the finger Heart: RRR, no m/r/g Lungs: CTAB Abdomen: soft, nontender, nondistended Extremities: no edema BLEs, s/p L BKA; R LE w/o edema. Objective Last Vital Signs Temp 37.9 C H 12/07/22 15:40 Pulse 60 12/07/22 15:19 Resp 17 12/07/22 15:19 BP 170/75 H 12/07/22 15:19 Pulse Ox 93 12/07/22 15:19 Laboratory Results - last 24 hr 12/06/22 12/06/22 12/06/22 16:42 16:42 17:00 WBC RBC Hgb Hct MCV MCH MCHC RDW Plt Count MPV Sodium 139 Potassium 3.0 L Chloride 103 Carbon Dioxide 31.3 Anion Gap 4.7 BUN 5 L Creatinine 0.8 Est GFR (CKD-EPI 2020) 89.47 Glucose 83 Calcium 9.3 Magnesium 1.7 L Total Bilirubin 0.3 AST 9 L ALT 7 L Alkaline Phosphatase 122 H Troponin I < 50 Total Protein 7.1 Albumin 2.8 L Triglycerides Total Cholesterol LDL Cholesterol, Calc HDL Cholesterol TSH 1.08 Urine Color Yellow Urine Clarity Clear Urine pH 6.5 Ur Specific [place] 1.010 Urine Protein Negative Urine Ketones Negative Urine Blood Negative Urine Nitrite Negative Urine Bilirubin Negative Urine Urobilinogen 0.2 Ur Leukocyte Esterase Negative Urine Glucose Negative Add-On Test Request 12/07/22 12/07/22 12/07/22 05:38 05:38 05:38 WBC 7.14 RBC 3.98 L Hgb 12.2 L Hct 36.5 L MCV 92 MCH 30.7 MCHC 33.4 RDW 14.0 Plt Count 209 MPV 11.2 H Sodium 142 Potassium 3.2 L Chloride 107 Carbon Dioxide 26.9 Anion Gap 8.1 BUN 9 Creatinine 0.8 Est GFR (CKD-EPI 2020) 89.47 Glucose 106 Calcium 9.1 Magnesium 2.0 Total Bilirubin 0.3 AST 10 L ALT 10 L Alkaline Phosphatase 114 Troponin I Total Protein 6.4 Albumin 2.6 L Triglycerides Total Cholesterol LDL Cholesterol, Calc HDL Cholesterol TSH Urine Color Urine Clarity Urine pH Ur Specific [place] Urine Protein Urine Ketones Urine Blood Urine Nitrite Urine Bilirubin Urine Urobilinogen Ur Leukocyte Esterase Urine Glucose Add-On Test Request DONE 12/07/22 12/07/22 05:38 15:40 WBC RBC Hgb Hct MCV MCH MCHC RDW Plt Count MPV Sodium Potassium Chloride Carbon Dioxide Anion Gap BUN Creatinine Est GFR (CKD-EPI 2020) Glucose Calcium Magnesium Total Bilirubin AST ALT Alkaline Phosphatase Troponin I Total Protein Albumin Triglycerides 177 H Total Cholesterol 182 LDL Cholesterol, Calc 119 H HDL Cholesterol 28 L TSH Urine Color Yellow Urine Clarity Clear Urine pH 6.5 Ur Specific [place] 1.020 Urine Protein Negative Urine Ketones Negative Urine Blood Negative Urine Nitrite Negative Urine Bilirubin Negative Urine Urobilinogen 1.0 H Ur Leukocyte Esterase Negative Urine Glucose Negative Add-On Test Request Time Spent with Patient Time Spent with Patient: 35-49 minutes Time was spent: preparing to see the patient(eg.review tests), obtaining and/or reviewing separately otained hiistory, ordering medications,tests, procedures, referring, communicating with other health childcare administrator, indepentently interpreting results, counseling the patient and care coordination
[2022-12-07 16:37] LABS: Lab Add On Test DONE
[2022-12-07 16:38] LABS: COVID-19 PCR Negative (Negative); Influenza A PCR Negative (Negative); Influenza B PCR Negative (Negative); RSV PCR Negative (Negative)
[2022-12-07 16:43] LABS: Source NASOPHARYNX
[2022-12-07 17:08] LABS: Procalcitonin < 0.1 ng/mL
--- NOTE | 2022-12-07 17:10 | DI.RAD_ITS ---
Exam(s) XR PORTABLE CHEST AP EXAM: XR PORTABLE CHEST AP CLINICAL HISTORY: fever TECHNIQUE: 2D digital imaging was performed. COMPARISON: CR,XR XR CHEST 2V PA LATERAL from 06/17/2022 FINDINGS: Limited by poor pulmonary inflation. Lungs obscured by calcified pleural plaques. LUNGS: Lungs obscured by calcified pleural plaques. Question of left lower lobe infiltrate. No pneu mothorax.. HEART: Normal size. AORTA: Normal diameter. BONES: Unremarkable for age. Soft tissues: Unremarkable. IMPRESSION: Exam limited by poor pulmonary inflation and multiple calcified pleural plaques. Question of left lower lobe infiltrate versus atelectasis. DATA REPOSITORY: RADIATION DOSE DELIVERED:
--- NOTE | 2022-12-07 17:47 | DI.VRAD_ITS ---
PROCEDURE INFORMATION: Exam: XR Chest Exam date and time: 12/07/2022 5:00 PM Age: 82 years old Clinical indication: Fever TECHNIQUE: Imaging protocol: Radiologic exam of the chest. Views: 1 view. COMPARISON: CR XR CHEST 2V PA LATERAL 17/06/2022 21:35 FINDINGS: Lungs: Consolidation of the left lower lobe. Bilateral peribronchial thickening. Increased interstitial markings at the right base consistent with developing infiltrate. Pleural spaces: Again noted extensive bilateral calcified pleural plaques. Blunted left costophrenic angle. Heart/Mediastinum: Stable cardiomediastinal silhouette. Bones/joints: Unremarkable for patient's age. IMPRESSION: 1. Left lower lobe consolidation with blunted costophrenic angle. Right lower lobe interstitial infiltrate. 2. Additional findings as discussed above. Dictated and Authenticated by: Galilea Kee MD. Ordering:BARI Alvarado MD
--- NOTE | 2022-12-07 18:31 | PDOC.CMIN ---
Date of service: 12/07/22 Time of Service: 18:37 Care Management Initial Assmt Initial Assessment REASON FOR HOSPITALIZATION:: Acute vertigo, right vertebral artery occlusion PREVIOUS FUNCTIONAL STATUS/SOCIAL/FAMILY SUPPORTS:: Tyler lives alone in the [facility] [address] in [facility]. Tyler is retired but worked 50 years in the [employer]. He has lots of friends who are supportive of him but does not have any family locally. Tyler had a left lower extremity amputation previously, and is modified independent with his ADLs at baseline. He uses a motorized wheelchair and a prosthetic leg, and transfers independently. He has someone help him with chores and laundry once or twice a week. CURRENT FUNCTIONAL STATUS:: Tyler was lying in bed when CM met with him. He stated that per MD, he will likely be transferred to [facility] for further care. He reported that he does not want to go to [facility] because it is too far for people to visit him. He reported that he currently has HH twice a week for dressing changes for a wound on his buttocks. CM will continue to follow. ADVANCE DIRECTIVES:: Not on file; CM will offer forms. Has patient been provided with info about the portal/API?: Yes Did the patient sign up for the portal?: No CODE STATUS:: DNR/DNI INSURANCE COVERAGE / FINANCIAL ISSUES:: [facility] CURRENT HOME/COMMUNITY SERVICES/EQUIPMENT:: HH services 2x/week; housekeeping 1-2x/week; Motorized wheelchair; prosthetic leg; 4WW. PRIMARY CARE PHYSICIAN:: Brad Morrow POTENTIAL DISCHARGE NEEDS:: Evaluations for further needs; possible transfer to tertiary facility. PATIENT/FAMILY EDUCATION NEEDS:: Review discharge instructions and limitations, discussion of self care needs including ask me three. ANTICIPATED BARRIERS TO DISCHARGE:: None identified. TRANSPORTATION:: Dependent on disposition. PLAN:: Tyler is being closely monitored and cared for; he may require transfer to a tertiary facility. His transport will be determined by his disposition, and will likely be EMS. He will follow up with his PCP and discharge plan of care. CM will continue to follow. PFSH All Active Problems (Updated 12/07/22 @ 16:41 by Jenny Dowd MD) Discharge planning issues (Acute) DVT prophylaxis (Acute) Fever (Acute) Hypokalemia (Chronic) Vertigo (Acute) Thrombosis of right vertebral artery (Acute) Bilateral carotid artery stenosis (Chronic) Lower urinary tract symptoms (LUTS) (Acute) Community acquired pneumonia (Acute) Hypomagnesemia (Chronic) Hyponatremia (Chronic) Pancytopenia (Acute) Chest pain (Acute) Alcohol abuse (Chronic) Dizziness (Acute) Stenosis of right internal carotid artery (Acute) Peripheral vertigo of both ears (Acute) Orthostatic hypotension (Acute) Peripheral neuropathy (Chronic) Thoracic vertebral fracture (Acute) Laceration of right thumb (Acute) Fracture of rib of left side (Chronic) Syncope (Acute) Pain (Acute) Hypertension (Chronic) COPD exacerbation (Acute) Intention tremor (Chronic) Insomnia (Acute) Wernicke encephalopathy (Acute) Pneumonia (Acute) Health insurance with [facility] [employer] (Acute) DNR (do not resuscitate) (Acute) Osteomyelitis of left foot (Acute) Anemia (Chronic) B12 deficiency anemia (Acute) Acute UTI (Acute) Continuous tobacco abuse (Chronic) Left ureteral stone (Acute) Medical History Alcohol abuse Per pt. 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
--- NOTE | 2022-12-07 18:53 | DI.VRAD_ITS ---
PROCEDURE INFORMATION: Exam: CT Head Without Contrast Exam date and time: 12/07/2022 6:22 PM Age: 82 years old Clinical indication: Other: Worsening vertigo, R vertebral artery occlusion TECHNIQUE: Imaging protocol: Computed tomography of the head without contrast. COMPARISON: CT BRAIN NECK CTA 06/12/2022 17:34 FINDINGS: Brain: Prominent cortical sulci similar to prior study. Stable small vessel ischemic white matter changes of aging. No acute intracranial hemorrhage. No mass effect. Cerebral ventricles: Stable ventricular size. Paranasal sinuses: Opacification of the left maxillary sinus and left ethmoid air cells with erosion of the medial wall of the left maxillary sinus and soft tissue extending into the left nasal cavity similar to prior study. Mucosal thickening of the right maxillary sinus. Opacification of the left frontal sinus. Mastoid air cells: Trace fluid in the inferior right mastoid air cells. Auditory system: Debris within the right external auditory canal. Orbital cavities: Prior bilateral globe surgery. Dental: The patient is edentulous. Bones/joints: Old nasal fracture similar to prior study. Bone defect in the anterior inferior left maxillary sinus wall series 3 image 57. Soft tissues: Unremarkable. Vasculature: Atherosclerotic disease. IMPRESSION: 1. No acute intracranial abnormality. 2. Opacification of the left maxillary sinus, left ethmoid air cells, and left frontal sinus with mass occluding the left nasal space of concern for an infectious or neoplastic process. 3. Fluid in the inferior right mastoid air cells of concern for mastoiditis. 4. Debris within the external right auditory canal recommend removal for improved hearing and balance. 5. Additional findings as discussed above. Dictated and Authenticated by: Galilea Kee MD. Ordering:BARI Alvarado MD
[2022-12-07] MEDS: DOXYCYCLINE 100 MG in Normal Saline 100 ML IVPB (19:06)
[2022-12-07] MEDS: PIPERACILLIN/TAZO 3.375 GM in Normal Saline 50 ML IVPB (21:05)
[2022-12-08] VITALS (13 sets, daily range): BP systolic 150–176; BP diastolic 55–94; PULSE 55–76; RESP 15–18; TEMP 36.2–37.4; O2SAT 92–97
[2022-12-08] MEDS: PIPERACILLIN/TAZO 3.375 GM in Normal Saline 50 ML IVPB ×4 (03:00→21:24)
[2022-12-08] MEDS: DOXYCYCLINE 100 MG in Normal Saline 100 ML IVPB ×2 (06:21→17:26)
[2022-12-08 07:01] LABS: Abs Immature Grans 0.04 10^3/uL (0.0-0.06); Absolute Basophil Count 0.06 10^3/uL (0.0-0.2); Absolute Eosinophil Count 0.64 10^3/uL (0.0-0.7); Absolute Lymphocyte Count 2.02 10^3/uL (1.2-3.4); Absolute Monocyte Count 0.58 10^3/uL (0.1-0.8); Absolute Neutrophil Count 4.49 10^3/uL (1.2-6.7); Basophils % 0.8; Eosinophils % 8.2; HCT 35.6 % (40.0-50.0); HGB 12.1 g/dL (13.5-17.5); Immature Grans % 0.5; Lymphocytes % 25.8; MCH 31.1 pg (27.0-33.0); MCV 92 fL (80-95); MPV 11.3 fL (8.0-11.0); Monocytes % 7.4; Neutrophils % 57.3; Platelet Count 187 10^3/uL (130-400); RBC 3.89 10^6/uL (4.36-5.78); RDW 14.3 % (11.8-14.1); RDW-SD 48.2 fL; WBC 7.83 10^3/uL (4.4-10.8)
[2022-12-08 07:30] LABS: Anion Gap 8.2 mmol/L (3-11); BUN 10 mg/dL (7-18); CO2 25.8 mmol/L (21.0-32.0); CREATININE 0.9 mg/dL (0.70-1.30); Calcium 9.3 mg/dL (8.5-10.1); Chloride 106 mmol/L (98-107); Estimated GFR 86.34 (mL/min/1.73m2); Glucose 101 mg/dL (74-106); Magnesium 1.9 mg/dL (1.8-2.4); Potassium 3.3 mmol/L (3.5-5.1); Sodium 140 mmol/L (136-145)
[2022-12-08 07:42] LABS: Hemoglobin A1C 5.5 % (<5.7)
[2022-12-08] MEDS: Potassium Chloride 10 MEQ TABCR PO (07:46)
[2022-12-08] MEDS: Magnesium Gluconate 500 MG TAB 250 MG PO (07:46)
[2022-12-08] MEDS: Clopidogrel 75 MG TAB PO (07:46)
[2022-12-08] MEDS: Aspirin E.C. 81 MG TABEC PO (07:46)
[2022-12-08] MEDS: Pantoprazole 40 MG TABCR PO (07:46)
[2022-12-08] MEDS: Tamsulosin 0.4 MG CAPCR PO (07:47)
[2022-12-08] MEDS: Tiotropium Bromide-Respimat 10 PUFF INH 2 PUFF IH (07:51)
[2022-12-08] MEDS: Potassium Chloride 10 MEQ CAPCR 30 MEQ PO (10:20)
--- NOTE | 2022-12-08 10:31 | PT.INTREAT ---
PT Notes Visit Reasons: Acute vertigo,Right Vertebral Artery Occlusion,Car Inpatient Physical Therapy Treatment Note [facility] Date: 12/08/22 OBJECTIVE: ? Therapeutic Exercises (50233w[1]): Direct one-on-one instruction in therapeutic exercises to develop strength, endurance, range of motion and flexibility. ? Exercises Pt completed SLR x 10, R hip abd x 10, Q.S x 20, R ankle pump x 20, Q.S x 10, rowing x 10, horz abd x 10. ASSESSMENT:? Pt reports that he thinks he is done with the exrcises after we completed as above. PLAN: Cont as per PT POC. TREATMENT CODE/TIME: 10:15-10:30 TP (15)
--- NOTE | 2022-12-08 16:00 | W.PM.PROGNOT ---
Date of Service Date of service: 12/08/22 Time of Service: 16:00 Assessment and Plan Assessment and plan (1) Vertigo: Start date: 12/06/22 Status: Acute Assessment and plan: Known h/o B carotid stenosis and vertebral A occlusion. The question is whether the vertigo is related and if he may have had a posterior CVA. Await MRI scan of the brain for tomorrow. At this time [facility] is not excepting the patient for transfer. We will get her own neurology consultation tomorrow along with the MRI scan. Continue dual antiplatelet therapy and high-dose statins. (2) Thrombosis of right vertebral artery: Start date: 12/06/22 Status: Acute Assessment and plan: as above (3) Bilateral carotid artery stenosis: Status: Chronic Assessment and plan: As above (4) HTN (hypertension): Assessment and plan: Given worsening symptoms, would continue permissive hypertension strategy. We will not treat his hypertension at this point unless his systolic blood pressures persistently higher than 180 (5) Left lower lobe pulmonary infiltrate: Status: Acute Assessment and plan: Empiric treatment for pneumonia with Zosyn and azithromycin. However patient has been afebrile throughout his hospital course with no leukocytosis, and normal procalcitonin less than 0.1. The virtual radiologist reading yesterday suggested left lower lobe consolidation as well as right lower lobe interstitial infiltrate. In-house official radiologist report indicated exam was limited by poor pulmonary inflation multiple calcified pleural plaques and question of left lower lobe infiltrate versus atelectasis. I will repeat his procalcitonin level and CBC in the morning if these are negative we will discontinue antibiotics. Most likely this is just atelectasis. I have encouraged him to use his IS (6) Hypomagnesemia: Status: Chronic Assessment and plan: Improved to a level 1.9. Currently on magnesium gluconate 250 mg daily. (7) Hypokalemia: Status: Chronic Assessment and plan: Potassium back down to 3.3. Will give additional oral doses today and increase his daily dose to 20 mg daily. (8) COPD (chronic obstructive pulmonary disease): (9) DVT prophylaxis: Status: Acute Assessment and plan: Sc enoxaparin (10) Discharge planning issues: Status: Acute Assessment and plan: DNR/DNI Continues to require hospitalization. No beds at [facility] - reattempt transfer tomorrow. Subjective Subjective Interval history since last seen: Tyler is frustrated that he has not been transferred to [facility]. I subsequently spoke with the transfer center and the indicated consultations were obtained with both neurology as well as vascular surgery last week and vascular surgery recommends the patient be treated with dual antiplatelet therapy as well as high-dose statin therapy and further work-up for possible stroke was recommended to include an MRI of the brain. They did not accept him in transfer to [facility]. I explained to the patient at this time he is not excepted for transfer to [facility]. We will proceed with obtaining his MRI scan of the brain tomorrow looking for evidence of stroke in the territory where his cerebrovascular disease is located. Patient does have significant bilateral carotid as well as right vertebral disease. He should still be referred to vascular surgery regardless of the results of his MRI scan. Exam Narrative Exam Narrative: Mr. Pratt is alert and oriented person place time circumstance not experiencing any dizziness or vertigo. However has not been getting out of bed and refusing to get up because does not have his prosthesis for his left leg. He has been sitting up at the bedside though eating his meals. Without any significant lightheadedness. Blood pressures been allowed to passively run modestly hypertensive because of the severity of his bilateral carotid disease. He is not short of breath not coughing up any purulent sputum he is refusing to use his incentive spirometer or his acapella. Lungs are clear anteriorly posteriorly has diminished breath sounds at the bases without rhonchi or wheezing Heart is regular rate and rhythm Abdomen soft nontender nondistended Objective Last Vital Signs Temp 36.3 C L 12/08/22 14:51 Pulse 61 12/08/22 14:51 Resp 18 12/08/22 14:51 BP 172/69 H 12/08/22 14:51 Pulse Ox 95 12/08/22 14:51 Laboratory Results - last 24 hr 12/07/22 12/07/22 12/07/22 05:38 15:40 15:40 WBC RBC Hgb Hct MCV MCH MCHC RDW Plt Count MPV Immature Gran % Neutrophils % Lymphocytes % Monocytes % Eosinophils % Basophils % Nucleated RBC % Absolute Neutrophils Absolute Lymphocytes Absolute Monocytes Absolute Eosinophils Absolute Basophils Sodium Potassium Chloride Carbon Dioxide Anion Gap BUN Creatinine Est GFR (CKD-EPI 2020) Glucose Hemoglobin A1c Calcium Magnesium Procalcitonin < 0.1 Urine Color Yellow Urine Clarity Clear Urine pH 6.5 Ur Specific Bee 1.020 Urine Protein Negative Urine Ketones Negative Urine Blood Negative Urine Nitrite Negative Urine Bilirubin Negative Urine Urobilinogen 1.0 H Ur Leukocyte Esterase Negative Urine Glucose Negative COVID-19 Source NASOPHARYNX SARS-CoV-2 (PCR) Negative Influenza Type A (PCR) Negative Influenza Type B (PCR) Negative RSV (PCR) Negative Add-On Test Request 12/07/22 12/08/22 12/08/22 Unknown 05:54 05:54 WBC RBC Hgb Hct MCV MCH MCHC RDW Plt Count MPV Immature Gran % Neutrophils % Lymphocytes % Monocytes % Eosinophils % Basophils % Nucleated RBC % Absolute Neutrophils Absolute Lymphocytes Absolute Monocytes Absolute Eosinophils Absolute Basophils Sodium 140 Potassium 3.3 L Chloride 106 Carbon Dioxide 25.8 Anion Gap 8.2 BUN 10 Creatinine 0.9 Est GFR (CKD-EPI 2020) 86.34 Glucose 101 Hemoglobin A1c 5.5 Calcium 9.3 Magnesium 1.9 Procalcitonin Urine Color Urine Clarity Urine pH Ur Specific Bee Urine Protein Urine Ketones Urine Blood Urine Nitrite Urine Bilirubin Urine Urobilinogen Ur Leukocyte Esterase Urine Glucose COVID-19 Source SARS-CoV-2 (PCR) Influenza Type A (PCR) Influenza Type B (PCR) RSV (PCR) Add-On Test Request DONE 12/08/22 05:54 WBC 7.83 RBC 3.89 L Hgb 12.1 L Hct 35.6 L MCV 92 MCH 31.1 MCHC 34.0 RDW 14.3 H Plt Count 187 MPV 11.3 H Immature Gran % 0.5 Neutrophils % 57.3 Lymphocytes % 25.8 Monocytes % 7.4 Eosinophils % 8.2 Basophils % 0.8 Nucleated RBC % 0.0 Absolute Neutrophils 4.49 Absolute Lymphocytes 2.02 Absolute Monocytes 0.58 Absolute Eosinophils 0.64 Absolute Basophils 0.06 Sodium Potassium Chloride Carbon Dioxide Anion Gap BUN Creatinine Est GFR (CKD-EPI 2020) Glucose Hemoglobin A1c Calcium Magnesium Procalcitonin Urine Color Urine Clarity Urine pH Ur Specific Bee Urine Protein Urine Ketones Urine Blood Urine Nitrite Urine Bilirubin Urine Urobilinogen Ur Leukocyte Esterase Urine Glucose COVID-19 Source SARS-CoV-2 (PCR) Influenza Type A (PCR) Influenza Type B (PCR) RSV (PCR) Add-On Test Request Time Spent with Patient Time Spent with Patient: 35-49 minutes Time was spent: preparing to see the patient(eg.review tests), obtaining and/or reviewing separately otained hiistory, ordering medications,tests, procedures, referring, communicating with other health client care coordinator, indepentently interpreting results, counseling the patient and care coordination
[2022-12-08 16:47] LABS: Potassium 3.9 mmol/L (3.5-5.1)
[2022-12-08] MEDS: Atorvastatin 40 MG TAB 80 MG PO (21:24)
[2022-12-08] MEDS: traZODone 100 MG TAB 300 MG PO (21:25)
[2022-12-09] MEDS: PIPERACILLIN/TAZO 3.375 GM in Normal Saline 50 ML IVPB ×3 (02:29→13:40)
[2022-12-09 03:11] VITALS: BP 155/69; PULSE 60; RESP 18; TEMP 36.9; O2SAT 93
[2022-12-09] MEDS: DOXYCYCLINE 100 MG in Normal Saline 100 ML IVPB (05:46)
[2022-12-09 07:43] LABS: Abs Immature Grans 0.03 10^3/uL (0.0-0.06); Absolute Basophil Count 0.08 10^3/uL (0.0-0.2); Absolute Eosinophil Count 0.74 10^3/uL (0.0-0.7); Absolute Lymphocyte Count 1.85 10^3/uL (1.2-3.4); Absolute Monocyte Count 0.67 10^3/uL (0.1-0.8); Absolute Neutrophil Count 5.12 10^3/uL (1.2-6.7); Basophils % 0.9; Eosinophils % 8.7; HCT 36.4 % (40.0-50.0); HGB 12.2 g/dL (13.5-17.5); Immature Grans % 0.4; Lymphocytes % 21.8; MCH 30.9 pg (27.0-33.0); MCHC 33.5 % (32.0-36.0); MCV 92 fL (80-95); MPV 11.5 fL (8.0-11.0); Monocytes % 7.9; Neutrophils % 60.3; Platelet Count 188 10^3/uL (130-400); RBC 3.95 10^6/uL (4.36-5.78); RDW 14.4 % (11.8-14.1); RDW-SD 48.8 fL; WBC 8.49 10^3/uL (4.4-10.8)
[2022-12-09 07:55] VITALS: BP 167/70; PULSE 67; RESP 18; TEMP 36.8; O2SAT 95
--- NOTE | 2022-12-09 08:00 | DI.MRI_ITS ---
Exam(s) MR BRAIN WO EXAM: MR BRAIN WO CLINICAL HISTORY: Acute vertigo with right vertebral artery occlusio. TECHNIQUE: Multiplanar multisequence MRI of the brain was performed. CONTRAST MATERIAL: Noncontrast COMPARISON: MR MR BRAIN WO from 07/10/2020 FINDINGS: VENTRICLES AND EXTRA AXIAL SPACES: Normal in size and morphology for the patient's age. HEMORRHAGE: None. CEREBRAL PARENCHYMA: No focus of restricted diffusion to suggest acute infarct. No space-occupying le lane identified. Moderate atrophy. moderate white matter changes consistent with microvascular dis ease. MIDLINE SHIFT: None. BRAINSTEM/CEREBELLUM: Normal. CALVARIUM: Normal. ENHANCEMENT: No suspicious enhancement identified. VISUALIZED PARANASAL SINUSES/MASTOIDS: Severe chronic left-sided sinus disease. Probable left-sided nasal polyps as noted on prior CT. OTHER FINDINGS: None. IMPRESSION: Atrophy and white matter changes of small vessel disease. Severe left-sided chronic sinusitis. DATA REPOSITORY:
--- NOTE | 2022-12-09 08:00 | DI.US_ITS ---
APPROVED REPORT EXAM: Comprehensive 2D, Doppler, and color-flow Echocardiogram Patient Location: In-Patient Room/Bed: 215 Academic Affairs Manager: Mi Coppola RDCS (AE) Indications: Acute vertigo with right vertebral artery occlusion. Other Information Study Quality: Adequate. Technically limited study due to body habitus, inability to position patient exam done supine bedside. Conclusion Normal left ventricular wall thickness and chamber size. Ejection fraction is 50 to 55%. There are no segmental wall motion abnormalities Normal right ventricular size and systolic function The atria are normal in size Aortic valve is calcified. There is no aortic stenosis or regurgitation Mitral annular calcification, mild mitral regurgitation Wall motion Left Ventricle The left ventricle is normal size. The overall left ventricular systolic function appears normal. The re is normal left ventricular wall thickness. There are no segmental wall motion abnormalities There is no ventricular septal defect visualized. LVEF is 50-55%. Right Ventricle The right ventricle is normal size. The right ventricular systolic function is normal. Atria Left atrium is mildly dilated. Right atrium is mildly dilated. The interatrial septum is intact with no evidence for an atrial septal defect. Aortic Valve Number of aortic valve leaflets could not be assessed. Aortic valve is calcified. No hemodynamically significant valvular aortic stenosis. No aortic regurgitation is present. Mitral Valve There is mitral annular calcification. No evidence of mitral valve stenosis. Mild mitral regurgitatio n. Tricuspid Valve The tricuspid valve is normal in structure. There is no tricuspid valve stenosis. Trace tricuspid reg urgitation. Unable to assess PA pressure. Pulmonic Valve The pulmonary valve is normal in structure. There is no pulmonic valvular stenosis. Trace to mild pul linda regurgitation. Great Vessels The aortic root is normal in size. The ascending aorta is normal in size. Aortic arch is not well vis ualized. IVC is normal in size and collapses >50% with inspiration. Pericardium There is no pericardial effusion. 2D Dimensions IVSD d PLAX 1.19 cm M: 0.6-1.2 Ao Root d 3.42 cm M: 3.1 - 3.7 LVPW d PLAX 1.18 cm M: 0.6 - 1.2 Ao Asc Diam d 3.39 cm M: 2.6 - 3.4 LVID d PLAX 4.64 cm M: 4.2 - 5.8 LVDs 3.44 cm M: 2.5 - 4.0 LV EF Teichholz 50.7 % FS 25.74 % LV EDV (Teich) 99.1 mL LV ESV (Teich) 48.9 mL M-Mode TAPSE 2.35 cm (M/F) >1.7 Auto EF LV EDV A4C 111.4 mL LV EDV A2C 111.7 mL LV EDV BP 115.1 mL LV ESV A4C 55.1 mL LV ESV A2C 56.0 mL LV ESV BP 56.9 mL LVEF(%) A4C 50.6 % LVEF(%) A2C 49.9 % LVEF(%) BP 50.6 % LV SV A4C 56.4 ml LV SV A2C 55.7 ml LV SV BP 58.2 ml LV CO A4C 3.2 L/min LV CO A2C 3.2 L/min LV CO BP 3.2 L/min HR A4C 56.61 BPM HR A2C 58.16 BPM LV EDV Index (BP) LA Volume LA Length A4C 6.1 cm LA Length A2C 5.7 cm LA Area A4C s 23.05 cm2 LA Area A2C s 21.29 cm2 LA Vol A4C A-L 73.74 mL LA Vol A2C A-L 67.07 mL LA Vol Biplane A-L 72.6 mL LA Vol/BSA A4C A-L LA Vol/BSA A2C A-L LA Vol/BSA BP A-L 38.8 mL/m2 LA Vol A4C MOD 67.7 mL LA Vol A2C MOD 60.9 mL LA Vol BP MOD 66.2 mL RA Volume RA Area A4C 18.9 cm2 RA ESV A4C (A-L) 56.8mL RA Vol/BSA A4C A-L RA Length A4C 5.3 cm RA ESV A4C (MOD) 49.2mL LV Diastology MV E' medial 0.082 (>0.07 m/s) MV E Vmax 0.77 (0.4-1.3 m/s) MV E/E' MED 9.41 (<14) MV A Vmax 0.55 (0.4-1.3 m/s) MV E' lateral 0.098 (>0.1 m/s) E/A Ratio 1.4 MV E/E' LAT 7.92 (<14) MV E' Average 0.090 m/s MV E/E'(average) 8.60 Aortic Valve AoV Vmax 1.59 m/s LVOT Vmax 0.92 m/s AoV Peak Grad 10.1 mmHg LVOT Peak Grad 3.4 mmHg AoV Area (Vmax) 1.75 cm2 LVOT VTI 0.195 m AoV VTI 0.361 m LVOT Mean Grad 1.5 mmHg AoV Mean Raoul. 1.02 m/s LVOT SV 58.79 mL AoV Mean Grad 4.8 mmHg LVOT Diam s 1.95 cm AoV Area (VTI) 1.63 cm2 Velocity Ratio 0.58 Mitral Valve MV DT 126 (160-240 msec) MV Vmax TIPS 0.81 m/s MV Mean Grad 0.9 (<2mmHg) MV VTI 0.229 m Pulmonary Valve PV Vmax 1.06 (0.5-1.5 m/s) RVOT Vmax 0.73 m/s PV Peak Grad 4.5 mmHg RVOT Peak Gr. 2.1 mmHg PV Mean Raoul 0.75 m/s RVOT VTI 0.195 m PV Mean Grad 2.5 mmHg RVOT Mean Gr. 1.1 mmHg Tricuspid Valve RA Pressure 3.00 mmHg TV S' 0.13 m/s
[2022-12-09 08:12] LABS: Anion Gap 7.6 mmol/L (3-11); BUN 9 mg/dL (7-18); CO2 27.4 mmol/L (21.0-32.0); Calcium 9.5 mg/dL (8.5-10.1); Chloride 104 mmol/L (98-107); Estimated GFR 76.08 (mL/min/1.73m2); Glucose 92 mg/dL (74-106); Potassium 3.9 mmol/L (3.5-5.1); Sodium 139 mmol/L (136-145)
[2022-12-09 08:26] LABS: Procalcitonin < 0.1 ng/mL
[2022-12-09] MEDS: Tiotropium Bromide-Respimat 10 PUFF INH 2 PUFF IH (08:31)
[2022-12-09] MEDS: Magnesium Gluconate 500 MG TAB 250 MG PO (09:08)
[2022-12-09] MEDS: Aspirin E.C. 81 MG TABEC PO (09:08)
[2022-12-09] MEDS: Pantoprazole 40 MG TABCR PO (09:08)
[2022-12-09] MEDS: Clopidogrel 75 MG TAB PO (09:08)
[2022-12-09] MEDS: Potassium Chloride 10 MEQ TABCR 20 MEQ PO (09:08)
[2022-12-09] MEDS: Tamsulosin 0.4 MG CAPCR PO (09:09)
--- NOTE | 2022-12-09 09:50 | PDOC.CMPRO ---
Date of service: 12/09/22 Time of Service: 09:50 Care Management Progress Note Progress Note Text Progress Note Text: S/O: A: Tyler is an 82 year old male admitted to [facility] on 12/06/22 for acute vertigo, right vertebral artery occlusion. P: Tyler is being closely monitored and cared for; he may require transfer to a tertiary facility. His transport will be determined by his disposition, and will likely be EMS. He will follow up with his PCP and discharge plan of care. CM will continue to follow.
[2022-12-09 11:03] VITALS: BP 163/76; PULSE 56; RESP 18; TEMP 36.6; O2SAT 97
[2022-12-09] MEDS: Normal Saline Flush 10 ML SYR IVP (13:39)
[2022-12-09 14:20] VITALS: BP 139/70; PULSE 60; RESP 18; TEMP 36.5; O2SAT 96
[2022-12-09 14:37] VITALS: BP 145/71; PULSE 64; RESP 16; TEMP 36.9; O2SAT 95
--- NOTE | 2022-12-09 15:56 | PT.INTREAT ---
PT Notes Visit Reasons: Acute Vertigo,Right Vertebral Artery Occlusion,Car Inpatient Physical Therapy Treatment Note [facility] Date: 12/09/22 PRECAUTIONS:Fall. Standard. 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 SUBJECTIVE: Tyler reports wanting to sit up at edge of bed. Would like to eat dinner sitting at edge of bed. Declines transfering to chair. OBJECTIVE: ? PAIN: None reported Therapeutic Exercises (93791): Direct one-on-one instruction in therapeutic exercises to develop strength, endurance, range of motion and flexibility: 18 minutes Seated edge of bed for entire session independently Seated LAQ x10 ea Seated hamstring set right only x8 Ankle pumps right only x10 BED MOBILITY/TRANSFERS? Rolling L/R: Independent Supine-sit: Supervision?- effort to get pushed to seated from sidelying ? Sit-supine: Supervision ? ? ? ASSESSMENT:? Patient has some difficult getting seated edge of bed from left sidelying, but able to get there independently. He has some dizziness upon sitting. Declines transferring to chair with use of FWW. I believe he would be able to do this effectively if tried. Also declines doing resistance band or weighted exercises. PLAN: ? PT vs. SNF based on ability to progress towards goals. TREATMENT CODE/TIME: 15:35-15:53 (18 minute) [id number] Jana Wilde, PT, DPT, OCS [facility] [place], [place]
--- NOTE | 2022-12-09 16:05 | W.NEUROCONSU ---
Date of service: 12/09/22 Time of Service: 16:06 Assessment and Plan Assessment and plan (1) Thrombosis of right vertebral artery: Status: Acute (2) Bilateral carotid artery stenosis: Status: Chronic (3) Vertigo: Status: Acute (4) Dizziness: Status: Acute (5) Orthostatic hypotension: Status: Acute (6) Peripheral neuropathy: Status: Chronic (7) H/O alcohol abuse: Status: Resolved Assessment and plan: Mr. Pratt was admitted with dizziness, describing both lightheadedness/orthostatic hypotension and vertiginous components, found to have pneumonia for which he is being treated. Complicated by his history of ETOH abuse, neuropathy and L BKA. Further complicated by worsening cerebrovascular disease with new R vertebral occlusion, but no evidence of acute stroke. His symptoms have seemingly improved. Encouraged good hydration/salt intake and avoidance of hypotension due to vascular disease. Also discussed outpatient vestibular PT for residual dizziness which he is agreeable. He should continue DAPT + high intensity statin as per vascular surgery and f/up as per them. Avoid hypotension. He should follow-up with [facility] as well. History of Present Illness History of Present Illness Chief Complaint: vertigo Narrative: Handedness: right. HPI: Mr. 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 He gets his care primarily through the [facility].? Mr. Pratt was admitted to [facility] on 12/06/22 with 1 day of dizziness (the notes indicate vertigo) and new onset R posterior lateral neck pain. He was found to have increasing cerebrovascular disease as below. He was already on ASA 81mg daily along with atorvastatin 40mg daily. Atorvastatin was increased to 80mg daily and he was started on clopidogrel 75mg daily in addition to ASA. He has had waxing/waning symptoms since admission. Today, he tells me his dizziness is unchanged. However, dizziness only occurs if he sits up or turns his head side to side - note that he demonstrated this x3 in the room for me and it did not trigger dizziness at any time. He describes the dizziness as both a lightheadedness/pre-syncope as well as vertigo. Notes that symptoms resolve quickly. His neck remains sore bilateally. He isn't sure why. Reports no injuries. But he notes dizziness has improved such that he feels able to go home. He has not ambulated here in the hospital as he does not have his prosthesis with him. Primarily uses motorized wheelchair. [facility]/up in Mar 2023. [facility] [place] during this visit by primary team per report, did not recommend anticoagulation or intervention. He is currently being treated for LLL PNA. Work-up: -CTA head/neck (12/06/22): Critical R and severe L ICA stenosis. Proximal R vertebral artery occlusion. Per rads also noting bilateral enhancing parotid nodules. I reviewed these images personally and this is my personal interpretation. -MRI brain w/o (12/09/22): No acute findings. Moderate chronic vascular changes. I reviewed these images personally and this is my personal interpretation. -Labs (12/06/22): LDL 119, A1c 5.5 -TTE (12/09/22): EF 50-55%, no wall motion abnormalities. LA normal. Review of Systems All systems reviewed & are unremarkable except as noted in HPI and below PFSH All Active Problems Left lower lobe pulmonary infiltrate (Acute) Discharge planning issues (Acute) DVT prophylaxis (Acute) Fever (Acute) Hypokalemia (Chronic) Vertigo (Acute) Thrombosis of right vertebral artery (Acute) Bilateral carotid artery stenosis (Chronic) Lower urinary tract symptoms (LUTS) (Acute) Community acquired pneumonia (Acute) Hypomagnesemia (Chronic) Hyponatremia (Chronic) Pancytopenia (Acute) Chest pain (Acute) Alcohol abuse (Chronic) Dizziness (Acute) Stenosis of right internal carotid artery (Acute) Peripheral vertigo of both ears (Acute) Orthostatic hypotension (Acute) Peripheral neuropathy (Chronic) Thoracic vertebral fracture (Acute) Laceration of right thumb (Acute) Fracture of rib of left side (Chronic) Syncope (Acute) Pain (Acute) Hypertension (Chronic) COPD exacerbation (Acute) Intention tremor (Chronic) Insomnia (Acute) Wernicke encephalopathy (Acute) Pneumonia (Acute) Health insurance with [facility] (Acute) DNR (do not resuscitate) (Acute) Osteomyelitis of left foot (Acute) Anemia (Chronic) B12 deficiency anemia (Acute) Acute UTI (Acute) Continuous tobacco abuse (Chronic) Left ureteral stone (Acute) Medical History Alcohol abuse Per pt. 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 Visit Medication and Allergies Active Medications Generic Name Dose Route Start Last Admin Trade Name Freq PRN Reason Stop Dose Admin Acetaminophen 325 - 650 mg 12/06/22 22:41 12/07/22 15:40 Acetaminophen 325 Mg Tab PO 650 mg Q4H PRN PRN Administration Al Hydrox/Mg Hydrox/Simethicone 30 ml 12/06/22 22:41 Mylanta Suspension 30 Ml Cup PO Q2H PRN PRN Albuterol Sulfate 2 puff 12/06/22 22:50 Albuterol Hfa 8 Gm 60 Puff Inh IH Q6H PRN PRN Albuterol/Ipratropium 3 ml 12/06/22 22:41 Albuterol/Ipratropium 3 Ml Upd Vial UPD Q4H PRN PRN Aspirin 81 mg 12/07/22 08:30 12/09/22 09:08 Aspirin E.C. 81 Mg Tabec PO 81 mg DAILY [facility] Administration Atorvastatin Calcium 80 mg 12/07/22 22:00 12/08/22 21:24 Atorvastatin 40 Mg Tab PO 80 mg HS [facility] Administration Cadexomer Iodine 0 gm 12/09/22 15:19 Cadexomer Iodine 10 Gm Tube TP DIRECTED PRN Clopidogrel Bisulfate 75 mg 12/07/22 08:30 12/09/22 09:08 Clopidogrel 75 Mg Tab PO 75 mg DAILY [facility] Administration Device 1 each 12/06/22 23:00 Inhaler, Assist Device DIRECTED [facility] Docusate Sodium 100 mg 12/06/22 22:41 Docusate Sodium 100 Mg Cap PO TID PRN PRN Enoxaparin Sodium 40 mg 12/07/22 18:00 12/08/22 17:32 Enoxaparin 40 Mg/0.4 Ml Syr SC Not Given Q24H [facility] Sodium Chloride 500 mls @ 0 mls/hr 12/06/22 22:41 Saline 500ml Bag IV PRN PRN As Directed Doxycycline Hyclate 100 mg/ 100 mls @ 100 mls/hr 12/07/22 18:00 12/09/22 09:09 Sodium Chloride IVPB Infused Q12H [facility] Infusion Piperacillin Sod/Tazobactam 50 mls @ 100 mls/hr 12/07/22 20:00 12/09/22 14:35 Sod 3.375 gm/ Sodium Chloride IVPB Infused Q6H [facility] Infusion IV Miscellaneous Supplies 1 each 12/06/22 22:45 Iv Access IV DIRECTED [facility] Lidocaine 1 patch 12/06/22 22:50 Lidocaine 5% Patch TP DAILY PRN PRN pain Magnesium Gluconate 250 mg 12/07/22 08:30 12/09/22 09:08 Magnesium Gluconate 500 Mg Tab PO 250 mg DAILY [facility] Administration Magnesium Hydroxide 30 ml 12/06/22 22:41 Milk Of Magnesia 30 Ml Cup PO DAILY PRN PRN Meclizine HCl 12.5 mg 12/07/22 16:42 Meclizine 12.5 Mg Tab PO TID PRN PRN Nitroglycerin 0.4 mg 12/06/22 22:50 Nitroglycerin 0.4 Mg Tab SL Q5 MIN PRN X3 PRN Pantoprazole Sodium 40 mg 12/07/22 07:30 12/09/22 09:08 Pantoprazole 40 Mg Tabcr PO 40 mg DAILY@0730 [facility] Administration Polyethylene Glycol 17 gm 12/06/22 22:41 Polyethylene Glycol 3350 17 Gm Packet PO DAILY PRN PRN Constipation Potassium Chloride 20 meq 12/09/22 08:30 12/09/22 09:08 Potassium Chloride 10 Meq Tabcr PO 20 meq DAILY [facility] Administration Sodium Chloride 0 ml 12/06/22 22:41 12/09/22 13:39 Normal Saline Flush 10 Ml Syr IVP 10 ml PRN PRN Administration Tamsulosin HCl 0.4 mg 12/09/22 08:30 12/09/22 09:09 Tamsulosin 0.4 Mg Capcr PO 0.4 mg DAILY [facility] Administration Tiotropium [place] 2 puff 12/07/22 08:30 12/09/22 08:31 Tiotropium [place]-Respimat 10 Puff Inh IH 2 puffs DAILY [facility] Administration Trazodone HCl 300 mg 12/07/22 22:00 12/08/22 21:25 Trazodone 100 Mg Tab PO 300 mg HS [facility] Administration Allergies No Known Allergies Allergy (Verified 06/17/22 21:27) Exam Narrative Exam Narrative: Physical Exam: Gen: Patient of apparent stated age, NAD Head and face: no facial or cranial abnormalities Neck: Supple, no meningismus, no occipital tenderness CV: + S1, S2, RRR, no murmur Resp: CTA B/L Abd: soft, nontender, nondistended Ext: No edema. No clubbing or cyanosis. L BKA. Neuro Exam: Language: fluency, naming, repetition, and comprehension intact; Mental Status: AAOx3, current events and fund of knowledge somewhat intact; Speech: no dysarthria Cranial nerves: Funduscopy: not performed CN II: visual stafford intact CN III, IV, : extraocular movements intact by observation but he is unable to voluntarily track for me; no nystagmus, pupils symmetric and reactive to light CN V: face sensation intact to LT and PP CN VII: no facial asymmetry noted CN VIII: hearing intact bilaterally CN IX, X: palate rises symmetrically CN XI: trapezius/SCM 5/5 bilaterally CN XII: protrudes tongue symmetrically Sensory: varying LT, PP, and vibration throughout the bilateral UE and LE in no obvious physiological pattern Motor: bulk and tone intact. Fine motor movements intact bilaterally. No pronator drift. Strength 4+/5 throughout including the deltoids, biceps, triceps, wrist extensors, hip flexors, knee flexors, knee extensors, ankle flexors, and ankle extensors (except L lower leg due to amputation). Reflexes: 1+/hyporeflexic/absent reflexes throughout the bilateral LE; R toe downgoing Coordination: FTN and HTS intact bilaterally and on R Gait: unable to test; he does not have his prosthesis Results Last Vital Signs Temp 98.4 F 12/09/22 14:37 Pulse 64 12/09/22 14:37 Resp 16 12/09/22 14:37 BP 145/71 H 12/09/22 14:37 Pulse Ox 95 12/09/22 14:37 Labs 12/09/22 06:40 12/09/22 06:40 Labs: Laboratory Results - last 24 hr 12/08/22 12/09/22 12/09/22 16:05 06:40 06:40 WBC RBC Hgb Hct MCV MCH MCHC RDW Plt Count MPV Immature Gran % Neutrophils % Lymphocytes % Monocytes % Eosinophils % Basophils % Nucleated RBC % Absolute Neutrophils Absolute Lymphocytes Absolute Monocytes Absolute Eosinophils Absolute Basophils Sodium 139 Potassium 3.9 3.9 Chloride 104 Carbon Dioxide 27.4 Anion Gap 7.6 BUN 9 Creatinine 1.0 Est GFR (CKD-EPI 2020) 76.08 Glucose 92 Calcium 9.5 Procalcitonin < 0.1 12/09/22 06:40 WBC 8.49 RBC 3.95 L Hgb 12.2 L Hct 36.4 L MCV 92 MCH 30.9 MCHC 33.5 RDW 14.4 H Plt Count 188 MPV 11.5 H Immature Gran % 0.4 Neutrophils % 60.3 Lymphocytes % 21.8 Monocytes % 7.9 Eosinophils % 8.7 Basophils % 0.9 Nucleated RBC % 0.0 Absolute Neutrophils 5.12 Absolute Lymphocytes 1.85 Absolute Monocytes 0.67 Absolute Eosinophils 0.74 H Absolute Basophils 0.08 Sodium Potassium Chloride Carbon Dioxide Anion Gap BUN Creatinine Est GFR (CKD-EPI 2020) Glucose Calcium Procalcitonin
--- NOTE | 2022-12-09 17:27 | DSE_ITS ---
Date of service: 12/09/22 Time of Service: 17:27 DS: Diagnosis Discharge Diagnosis (1) Vertigo: Status: Acute Asessment and Plan: 82 yr old smoker w/ hx of bilateral carotid atherosclerosis (previously severe on the right and moderate on the left) who presented to the ED w/ acute onset of severe vertigo. Workup in the ED included repeat CTA head and neck and he was now found to have critical carotid stenosis on the right and severe on the left w/ now an occluded right vertebral artery. [facility] [place] vascular were consulted and they recommended hospitalization locally for stroke workup incl uding MRI brain, echocardiogram, telemetry monitoring and dual antiplatelet therapy and high dose statin. He was already on aspirin 81 mg daily and atorvastatin 40 mg daily. He was admited on telemetry and echo and MRI were ordered. He was loaded w/ Plavix 300 mg and aspirin 324 mg. His atorvastatin was increased to 80 mg daily. He was treated for his vertigo w/ meclizine. As he was admited over the weekend, echo and MRI were not completed until 12/09 the day of his discharge. MRI showed small vessel ischemic disease but no acute stroke. Echo showed normal LV and RV function, LVEF 50-55% w/ no regional wall motion abnormalities, MAC and aortic calcifications but no stenosis and no significant insufficiency. His vertigo improved. [facility] [place] vascular was recontacted and they did not feel that there was any need for emergent revascularization. They recommended continued DAPT and atorvastatin and follow up in the vascular clinic at outpatient. Dr. Morales, local neurologist saw him on 12/09 and recommended the same plus outpatient P.T. for vestibular exercises and to follow up in neuorlogy clinic and vascular clinic at the [facility] in [place], [place]. Patient was advised of his need to quit smoking but he indicated that he has been told that before but has no intention of quitting . He was put on antibiotics including doxycycline and Zosyn on 12/07 briefly out of concern for a possible pneumonia however he never spiked a fever and never had a rise in his WBC and serial procalcitonin levels were normal, therefore his antibiotics were stopped. His CT scan of his neck also demonstrated bilateral parotid gland nodules which will need to be followed up as outpatient. Patient is to follow up at his [place] primary care office next week. He was sent home on DAPT (Plavis and aspirin) and high dose atorvastatin and told to stop use of tobacco products. (2) Thrombosis of right vertebral artery: Status: Acute (3) Bilateral carotid artery stenosis: Status: Chronic (4) HTN (hypertension): (5) Left lower lobe pulmonary infiltrate: Status: Acute (6) Hypomagnesemia: Status: Chronic (7) Hypokalemia: Status: Chronic (8) COPD (chronic obstructive pulmonary disease): (9) DVT prophylaxis: Status: Acute (10) Discharge planning issues: Status: Acute Discharge Plan Disposition Patient Disposition: Home Condition: Good Discharge Details Reason For Visit: Acute Vertigo,Right Vertebral Artery Occlusion,Car Admit Date/Time: 12/06/22 22:41 Admit Provider: Tyler Earl Attending Provider: Tyler Earl Primary Care Provider: Brad Morrow Home Meds and New Rx's Prescriptions: New clopidogrel [Plavix] 75 mg tablet 75 mg PO DAILY Qty: 30 0RF Continued nitroglycerin [Nitrostat] 0.4 mg tablet, sublingual 0.4 mg Sublingual Q5M PRN Patient Comments: doesn't have chest pain Rx Instructions: for chest pain omeprazole 20 MG capsule,delayed release(DR/EC) 40 mg PO DAILY AM Patient Comments: Pt. states that he doesn't take this medication. albuterol sulfate 90 mcg/actuation HFA aerosol inhaler 2 puff INHALATION Q6H PRN aspirin 81 mg Tablet,Delayed Release (Dr/Ec) 81 mg PO DAILY calcium carbonate-vitamin D3 [Calcium 500 + D] 500 mg-5 mcg (200 unit) Tablet 2 tab PO DAILY tiotropium bromide 2.5 mcg/actuation Mist 2 puff INHALATION DAILY trazodone 100 mg Tablet 300 mg PO HS tamsulosin 0.4 mg capsule 0.4 mg PO DAILY AM magnesium 250 mg tablet 250 mg PO DAILY Qty: 10 0RF lidocaine [Lidoderm] 5 % adhesive patch,medicated 1 patch TP DAILY PRN (Reason: pain) Qty: 15 0RF Rx Instructions: leave on most painful area for up to 12 hrs Changed atorvastatin 40 mg Tablet 80 mg PO HS Qty: 60 0RF Discontinued amlodipine 10 MG tablet 5 mg PO DAILY furosemide 20 mg Tablet 20 mg PO DAILY Qty: 0 0RF potassium chloride 20 mEq tablet extended release 10 meq PO DAILY Discharge Instructions Instructions: Clopidogrel (By mouth), Benign Paroxysmal Positional Vertigo (DC), Dizziness (GEN) Additional Instructions: You were admitted for acute dizziness and vertigo. Initially it was unclear whether or not you had a TIA or posterior circulation stroke. CTA of your head and neck demonstrated severe vascular disease of your right internal carotid artery and occluded right vertebral artery, severe narrowing of your proximal left internal carotid artery in the neck. You also have bilateral parotid nodules that need followed up. MRI of the brain did not show any evidence of an acute stroke. Echocardiogram (ultrasound of your heart was normal for your age. You were monitored on telemetry monitoring to look for any electrical arrhythmias. None were seen. A neurologist saw you on the day of your discharge and she agreed w/ our treatment plan which included putting you on two different antiplatet drugs, aspirin 81 mg daily which you were already taking and plavix (clopidogrel) 75 mg daily and increasing your atorvasatin (your cholesterol medicine) to high dose 80 mg daily. She recommended that you follow up w/ the [place] neurologist and also follow up in the vascular surgical clinic at the [place] and that you would benefit from outpatient physical therapy for vestibular exercises to prevent the vertigo. We did give you meclizine for your dizziness which seems to have helped. We did consult w/ [facility] vascular service and as you did not have a stroke which could be attributed to your current vascular d isease, they did not recommend surgical intervention at this time. They recommend being followed in the vascular clinic. You can help yourself but stopping your smoking or use of any tobacco products as these worsen vascular disease. Stand Alone Forms: Nursing Discharge Form Referrals: [facility] [Outside] (Follow up with vascular surgeons at [facility] [phone]) [facility] [Outside] (Follow up with [place] [facility] [phone]) Brad Morrow [Primary Care Provider] - (follow up next week; your PCP should set you up for follow up w/ vascular surgery clinic and neurology clinic at the [place] within the next 2 to 4 weeks) Activity:: Activity as Tolerated Equipment/Supplies:: No Equipment Needed Diet:: Low Sodium Discharge Orders Discharge Orders: Discharge Order (Routine); Ordered 12/09/22 Ordered By: Ray Izaguirre Discharge Data Discharge Date/Time-TO BE ENTERED AT DEPARTURE: 12/09/22 18:23 DS: Summary Summary Time spent discussing smoking cessation with patient: more than 10 minutes (I explained to the patient on more than one occasion that he stopped smoking all seems to be recalcitrant.) Time Spent with Patient providing and/or coordinating discharge services: Greater than 30 minutes Specific discharge activities: Interview/exam of patient; review of discharge instructions, completion of prescriptions/discharge instructions; discussion w/ nursing and CM; documentation of hospital visit Status at Discharge Functional status at discharge: wheelchair bound Overall status at discharge: patient is back to baseline Mental Status: mental status grossly normal Speech and Movement: speech and movement normal Mood: congruent mood Affect: normal affect Exam Narrative Exam Narrative: Tyler is sitting up eating his dinner. He just met with Dr. Morales. I went over his work-up with him's recommendations. I explained to that he needs to remain on dual antiplatelet therapy with Plavix 75 mg daily along with aspirin 81 mg daily and he needs to increase his atorvastatin 80 g daily. He will need follow-up with the [facility] with the neurology clinic as well as the vascular clinic as well as his local primary care provider. Dr. Morales is recommended he enter into outpatient physical therapy for vestibular exercises to treat his vertigo. Tyler is alert and oriented person place time circumstance. Lungs are clear to auscultation with prolonged expiratory phase without rhonchi or wheezing Heart is regular rate and rhythm. Neuro exam no focal motor deficits no facial asymmetry no dysarthric speech Psych Mental Status: mental status grossly normal Speech and Movement: speech and movement normal Mood: congruent mood Affect: normal affect DS: Data Vitals/I&O Vitals and I&O: Vital Signs Temperature 36.9 C 12/09/22 14:37 Temperature Source Tympanic 12/09/22 14:37 Pulse 64 12/09/22 14:37 Pulse Rhythm Regular 12/08/22 09:03 Pulse 74 12/06/22 23:50 Respiratory Rate 16 12/09/22 14:37 Respiratory Effort Normal, Non-Labored 12/09/22 09:32 Respiratory Depth Normal 12/09/22 09:32 Respiratory Pattern Normal 12/09/22 09:32 Blood Pressure 145/71 H 12/09/22 14:37 Blood Pressure Mean 93 12/06/22 23:02 Blood Pressure Position Sitting 12/06/22 15:05 Pulse Oximetry 95 12/09/22 14:37 Oxygen Delivery Method Room Air 12/09/22 14:37 Oxygen Flow Rate 0 12/09/22 14:37 Pain Level 0 12/09/22 14:20 Comment BP called over radio 12/09/22 11:03 Intake & Output 12/08/22 12/09/22 12/09/22 23:59 11:59 23:59 Intake Total 200 / 700 500 / 550 50 / 550 Output Total 950 / 2150 800 / 1000 200 / 1000 Balance -750 / -1450 -300 / -450 -150 / -450 Intake: IV 200 / 450 200 / 250 50 / 250 Oral 300 / 300 Output: Urine 950 / 2150 800 / 1000 200 / 1000 Other: Urine Color Yellow Yellow Yellow Urine Appearance Clear Clear Clear Urine Odor Normal Comment pT heavily incontinent in bed- poor use of urinal overnight incontinent using urninal Voiding Methods Urinal Urinal Urinal Diaper Incontinent Data Completed and Pending Labs on day of discharge: Labs from last 24 hours 12/09/22 12/09/22 12/09/22 06:40 06:40 06:40 WBC 8.49 RBC 3.95 L Hgb 12.2 L Hct 36.4 L MCV 92 MCH 30.9 MCHC 33.5 RDW 14.4 H Plt Count 188 MPV 11.5 H Immature Gran % 0.4 Neutrophils % 60.3 Lymphocytes % 21.8 Monocytes % 7.9 Eosinophils % 8.7 Basophils % 0.9 Nucleated RBC % 0.0 Absolute Neutrophils 5.12 Absolute Lymphocytes 1.85 Absolute Monocytes 0.67 Absolute Eosinophils 0.74 H Absolute Basophils 0.08 Sodium 139 Potassium 3.9 Chloride 104 Carbon Dioxide 27.4 Anion Gap 7.6 BUN 9 Creatinine 1.0 Est GFR (CKD-EPI 2020) 76.08 Glucose 92 Calcium 9.5 Procalcitonin < 0.1 Preliminary micro results at discharge 12/07/22 17:42 Blood Culture - Preliminary Blood NO GROWTH 24 HOURS 12/07/22 17:35 Blood Culture - Preliminary Blood NO GROWTH 24 HOURS PFSH All Active Problems Left lower lobe pulmonary infiltrate (Acute) Discharge planning issues (Acute) DVT prophylaxis (Acute) Fever (Acute) Hypokalemia (Chronic) Vertigo (Acute) Thrombosis of right vertebral artery (Acute) Bilateral carotid artery stenosis (Chronic) Lower urinary tract symptoms (LUTS) (Acute) Community acquired pneumonia (Acute) Hypomagnesemia (Chronic) Hyponatremia (Chronic) Pancytopenia (Acute) Chest pain (Acute) Alcohol abuse (Chronic) Dizziness (Acute) Stenosis of right internal carotid artery (Acute) Peripheral vertigo of both ears (Acute) Orthostatic hypotension (Acute) Peripheral neuropathy (Chronic) Thoracic vertebral fracture (Acute) Laceration of right thumb (Acute) Fracture of rib of left side (Chronic) Syncope (Acute) Pain (Acute) Hypertension (Chronic) COPD exacerbation (Acute) Intention tremor (Chronic) Insomnia (Acute) Wernicke encephalopathy (Acute) Pneumonia (Acute) Health insurance with [employer] (Acute) DNR (do not resuscitate) (Acute) Osteomyelitis of left foot (Acute) Anemia (Chronic) B12 deficiency anemia (Acute) Acute UTI (Acute) Continuous tobacco abuse (Chronic) Left ureteral stone (Acute) Medical History Alcohol abuse Per pt. 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 Time Spent with Patient Time Spent with Patient: <45 minutes Time was spent: preparing to see the patient(eg.review tests), ordering medications,tests, procedures, referring, communicating with other health manager care, indepentently interpreting results, counseling the patient and care coordination
--- NOTE | 2022-12-09 18:19 | CMDISCH_ITS ---
Date of service: 12/09/22 Time of Service: 18:19 LACE Index Scoring Tool Questions: Length of Stay (in days): 3 Was the patient admitted via the E.D.?: Yes Comorbidities: Chronic Pulmonary Disease E.D. Visits: 3 Answers: Total Score: 11 Risk of Readmission: High Risk Care Management Discharge Plan Reason for Hospitalization: Acute vertigo, right vertebral artery occlusion Discharge Plan: Tyler will return home with a resumption of HH RN. He will transport via [employer] with a lift assist from the [employer], coordinated by CM. He will follow up with his PCP at the [facility], and his discharge plan of care. He is happy to be going home. Patient/Family Education Needs: Review discharge instructions and limitations, discussion of self care needs including ask me three. Services Needed at Discharge: Home Health Care Services (resume HH RN) and Transportation ([employer] w/c van, Fire department for lift assist)
--- NOTE | 2022-12-10 05:40 | INDS_ITS ---
PT Notes Visit Reasons: Acute Vertigo,Right Vertebral Artery Occlusion,Car Inpatient Physical Therapy Discharge Summary Date: 12/10/22 Dates of Service:?12/07/2021 - 12/09/22 Referring Doctor:? Jenny Dowd MD PT Orders: PT CONSULT: Limited ability Precautions:?Fall.? Activity as tolerated. This document serves as a summary of care. No PT services were provided on this date. Patient Profile/Admitting Diagnosis:? Patient is an 82-year-old male patient who presented to the ED on 12/06/22 dizziness, neck pain, and generalized weakness.? Patient was diagnosed with thromobosis of R vertebral artery, vertigo, B carotid artery stenosis, HTN, hypomagnesemia, hypokalemia, and COPD. He participated in 3 sessions of PT invervention over the course of 3 days, and was able to transition home with PT on 12/09/22. PMHX: All Active Problems?(Updated 12/07/22 @ 03:51 by Tyler Earl) Hypokalemia (Chronic) Vertigo (Acute) Thrombosis of right vertebral artery (Acute) Bilateral carotid artery stenosis (Chronic) Lower urinary tract symptoms (LUTS) (Acute) Community acquired pneumonia (Acute) Hypomagnesemia (Chronic) Hyponatremia (Chronic) Pancytopenia (Acute) Chest pain (Acute) Alcohol abuse (Chronic) Dizziness (Acute) Stenosis of right internal carotid artery (Acute) Peripheral vertigo of both ears (Acute) Orthostatic hypotension (Acute) Peripheral neuropathy (Chronic) Thoracic vertebral fracture (Acute) Laceration of right thumb (Acute) Fracture of rib of left side (Chronic) Syncope (Acute) Pain (Acute) Hypertension (Chronic) COPD exacerbation (Acute) Intention tremor (Chronic) Insomnia (Acute) Wernicke encephalopathy (Acute) Pneumonia (Acute) Health insurance with [employer] (Acute) DNR (do not resuscitate) (Acute) Osteomyelitis of left foot (Acute) Anemia (Chronic) B12 deficiency anemia (Acute) Acute UTI (Acute) Continuous tobacco abuse (Chronic) Left ureteral stone (Acute) Medical History? Alcohol abuse Per pt. states he hasnt drank for 2 years COPD (chronic obstructive pulmonary disease) GERD (gastroesophageal reflux disease) HTN (hypertension) Hx of hyperlipidemia Left ureteral stone Orthostatic hypotension Stenosis of both internal carotid arteries Vertigo Surgical History? 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 Patient is modified independent using motorized wheelchair for all transfers and indoor/outdoor mobility.? He has a lady who comes in once or twice a week to perform house chores and laundry. Equipment Owned/DME: Motorized wheelchair, 4WW Subjective:? none obtained Objective:? ROM: Right Upper Extremity: ? Shoulder Flexion WFL. Shoulder abduction WFL. Elbow flexion WFL. Wrist flexion WFL. Functional opening and closing of hand WFL. Left Upper Extremity:? Shoulder Flexion WFL. Shoulder abduction WFL. Elbow flexion WFL. Wrist flexion WFL. Functional opening and closing of hand WFL.? Pain at end range of L shoulder ROM. Right Lower Extremity: Hip flexion WFL. Hip abduction WFL. Knee flexion WFL. Ankle dorsiflexion WFL. Ankle plantarflexion WFL. Left Lower Extremity: Hip flexion WFL. Hip abduction WFL. Knee flexion 10 degrees to 90 degrees. Knee extensors -10 to 90 degrees.? Ankle dorsiflexion N/A. Ankle plantarflexion N/A. Strength: Right Upper Extremity: Shoulder flexors 4/5. Shoulder abductors 4-/5. Elbow flexors 4/5. Elbow extensors 4/5. Director Of Housing strong. Left Upper Extremity: Shoulder flexors 4/5. Shoulder abductors 4-/5. Elbow flexors 4/5. Elbow extensors 4/5. Director Of Housing strong. Right Lower Extremity: Hip flexors 4-/5. Hip abductors 4-/5. Knee flexors 4-/5. Knee extensors 4-/5. Ankle dorsiflexors 4-/5. Ankle plantarflexors 4-/5. Left Lower Extremity: Hip flexors 4-/5. Hip abductors 4-/5. Knee flexors 3-/5. Knee extensors 3-5. Ankle dorsiflexors N/A. Ankle plantarflexors N/A. Sensation:? Diminished sensation bilateral lower extremities secondary to peripheral neuropathy.? Bed Mobility/Transfers:?? Rolling L/R: Independent Supine-sit: Supervision?- effort to get pushed to seated from sidelying ? Sit-supine:? Supervision ? Gait:? Not assessed as patient is non-ambulatory Balance:? Static Sitting: Normal Dynamic Sitting: Good Static Standing: Unable Dynamic Standing: Unable Assessment:?? Patient is an 82-year-old male patient who presented to the ED on 12/06/22 dizziness, neck pain, and generalized weakness.? Patient was diagnosed with thromobosis of R vertebral artery, vertigo, B carotid artery stenosis, HTN, hypomagnesemia, hypokalemia, and COPD. He participated in 3 sessions of PT invervention over the course of 3 days, and was able to transition home with PT on 12/09/22. Goals: Goals X1 week 1. Supine-Sit independent (Progressing Toward) 2. Sit-Supine independent (Progressing Toward) 3. Sit-Stand independent (NOT MET) 4. Stand-Sit independent (NOT MET) 5. Bed-Chair independent with sit-squat transfer after set up(NOT MET) 6. Chair-Bed supervision with sit-squat transfer after set up (NOT MET) Plan of Care/Treatment Plan: D/C home with assistance to enter home DISCHARGE RECOMMENDATIONS:?? [X]? HH PT ? TREATMENT CODE/TIME: none Thank you for the opportunity to participate in the care of this patient. Winnie Contreras PT, DPT [facility] [place], [place]
== END 2022-12-09 18:23 | disposition home or self-care (01) | DRG 68 ==
LOC: ER 23:10 → MS 12-07 00:07
PROVIDERS: Internal Medicine; Admitting Provider Family Medicine; Emergency Provider Emergency Medicine; PCP Internal Medicine; Visit Provider Family Medicine
DX: I65.01 Occlusion and stenosis of right vertebral artery (principal); D61.818 Other pancytopenia; E87.1 Hypo-osmolality and hyponatremia; N20.1 Calculus of ureter; I67.89 Other cerebrovascular disease; R42 Dizziness and giddiness; Z66 Do not resuscitate; I65.23 Occlusion and stenosis of bilateral carotid arteries; I10 Essential (primary) hypertension; E83.42 Hypomagnesemia; J44.9 Chronic obstructive pulmonary disease, unspecified; Z89.512 Acquired absence of left leg below knee; I73.9 Peripheral vascular disease, unspecified; E87.6 Hypokalemia; F10.10 Alcohol abuse, uncomplicated; I95.1 Orthostatic hypotension; G62.9 Polyneuropathy, unspecified; G25.2 Other specified forms of tremor; G47.00 Insomnia, unspecified; D64.9 Anemia, unspecified; E53.8 Deficiency of other specified B group vitamins; K21.9 Gastro-esophageal reflux disease without esophagitis; E78.5 Hyperlipidemia, unspecified; F17.290 Nicotine dependence, other tobacco product, uncomplicated; R50.9 Fever, unspecified; N40.0 Benign prostatic hyperplasia without lower urinary tract symptoms; K11.8 Other diseases of salivary glands
CPT/HCPCS: 36415; 70496; 70498; 80048; 80053; 80061; 84145; 85027; 87040; 87081; 87637; 93005; 94640; 96360; 96361; 97110; 97162; 97530; 99285; 70450; 70551; 71045; 81003; 83036; 83735; 84132; 84443; 84484; 85025; 93010; 93306; 94664; 94667; 94668; 99223; 99233; 99239; J2543; J3490

== ENCOUNTER 2023-09-04 22:36 | Emergency (ER) | payer MEDICARE, OTHER, SELFPAY ==
--- NOTE | 2023-09-04 22:30 | DI.RAD_ITS ---
Exam(s) XR PORTABLE CHEST AP EXAM: XR PORTABLE CHEST AP CLINICAL HISTORY: chest pain. TECHNIQUE: 2D digital imaging was performed. COMPARISON: CR,XR XR PORTABLE CHEST AP from 12/07/2022 FINDINGS: Single AP portable view. Heart size is upper normal. The mediastinum is not widened. Bilateral calcified pleural plaques are again noted, again noted be more extensive on the left side. There are no obvious new infiltrates nor pleural effusions. No pulmonary edema. No pneumothorax. IMPRESSION: Extensive bilateral calcified pleural plaques. No obvious acute lung findings. DATA REPOSITORY: RADIATION DOSE DELIVERED:
--- NOTE | 2023-09-04 22:30 | RT.EKG_ITS ---
APPROVED REPORT Exam: Resting ECG Reason for Exam: CHEST PAIN Patient Location: E HR:85 bpm ECG Measurements Heart Rate 85 AXIS OH 67 P -24 QRSd 91 QRS 57 QT 384 T 22 QTc 454 Conclusion Sinus rhythm...normal P axis, V-rate 60- 99 Ventricular premature complex...V complex w/ short R-R interval no ST segment or T wave abnormalities to suggest occlusive NE
[2023-09-04 22:35] VITALS: BP 164/123; PULSE 84; RESP 20; TEMP 36.2; O2SAT 95
[2023-09-04 22:42] VITALS: RESP 18
[2023-09-04 22:50] LABS: BE (Venous) 3 mmol/L (-2-3); HCO3 (Venous) 28 mmol/L (23-28); O2 Sat (Venous) 97 %; TCO2 (Venous) 25 mmol/L (24-29); pCO2 (Venous) 44 mmHg (41-51); pH (Venous) 7.41 (7.31-7.41); pO2 (Venous) 84 mmHg
[2023-09-04 22:52] LABS: Abs Immature Grans 0.03 10^3/uL (0.0-0.06); Absolute Basophil Count 0.06 10^3/uL (0.0-0.2); Absolute Eosinophil Count 0.69 10^3/uL (0.0-0.7); Absolute Lymphocyte Count 2.43 10^3/uL (1.2-3.4); Absolute Monocyte Count 0.82 10^3/uL (0.1-0.8); Absolute Neutrophil Count 8.77 10^3/uL (1.2-6.7); Basophils % 0.5 %; Eosinophils % 5.4 %; HCT 36.7 % (40.0-50.0); HGB 12.6 g/dL (13.5-17.5); Immature Grans % 0.2 %; MCH 32.5 pg (27.0-33.0); MCHC 34.3 % (32.0-36.0); MCV 95 fL (80-95); MPV 10.5 fL (8.0-11.0); Monocytes % 6.4 %; Neutrophils % 68.5 %; Platelet Count 240 10^3/uL (130-400); RBC 3.88 10^6/uL (4.36-5.78); RDW 13.7 % (11.8-14.1)
[2023-09-04 22:53] LABS: Lactate 2.1 mmol/L (0.6-1.4)
--- NOTE | 2023-09-04 23:02 | ED.GENADUL_ITS ---
Discharge Plan Disposition Patient Disposition: Home Condition: Good Discharge Details Clinical Impression: Leg pain, Chronic wound, Arterial vascular disease, Chest pain Primary Care Provider: Brad Mrorow ED Provider: Ml Caldwell Home Meds and New Rx's Prescriptions: Continued nitroglycerin [Nitrostat] 0.4 mg tablet, sublingual 0.4 mg Sublingual Q5M PRN Patient Comments: doesn't have chest pain Rx Instructions: for chest pain (DME) cellulose,oxidized-collagen 4.34 X 4.34 (45 %-55 %) bandage See Rx Instructions .ROUTE Rx Instructions: As directed alendronate 70 mg tablet 70 mg PO QWEEK omeprazole 20 MG capsule,delayed release(DR/EC) 40 mg PO DAILY AM Patient Comments: Pt. states that he doesn't take this medication. albuterol sulfate 90 mcg/actuation HFA aerosol inhaler 2 puff INHALATION Q6H PRN aspirin 81 mg Tablet,Delayed Release (Dr/Ec) 81 mg PO DAILY calcium carbonate-vitamin D3 [Calcium 500 + D] 500 mg-5 mcg (200 unit) Tablet 2 tab PO DAILY tiotropium bromide 2.5 mcg/actuation Mist 2 puff INHALATION DAILY trazodone 100 mg Tablet 300 mg PO HS magnesium 250 mg tablet 250 mg PO DAILY Qty: 10 0RF atorvastatin 40 mg Tablet 80 mg PO HS Qty: 60 0RF lidocaine [Lidoderm] 5 % adhesive patch,medicated 1 patch TP DAILY PRN (Reason: pain) Qty: 15 0RF Rx Instructions: leave on most painful area for up to 12 hrs Discontinued tamsulosin 0.4 mg capsule 0.4 mg PO DAILY AM clopidogrel [Plavix] 75 mg tablet 75 mg PO DAILY Qty: 30 0RF Discharge Instructions Instructions: Peripheral artery disease and claudication, Chest Pain, Adult ED Additional Instructions: Call your primary care doctor today to schedule an appointment for today or tomorrow to followup on your visit today. At that visit please followup on your CT results and discuss your blood pressure, leg swelling, and leg pain as well your episode of chest pain. Return to the emergency deperatment for new or worsening symptoms including if your chest pain returns, your leg pain worsens or your leg turns cool, white, or blue, if you have difficulty breathing, feel like you are going to pass out, or if you have any other concerns. Referrals: Brad Morrow [Primary Care Provider] - Discharge Data Discharge Date/Time-TO BE ENTERED AT DEPARTURE: 09/05/23 02:45 HPI General Mode of arrival: EMS . Date/Time Provider Initiated Documentation: 09/04/23 22:38 . Limitations to Documentation: no limitations . Information obtained by: patient, EMS and old records reviewed . HPI Narrative: 83yo M with hx HTN, COPD, PVD with left BKA, bialteral carotid stenosis, presenting via EMS with chest discomfort. Denies prior cardiac history. Recieved nitro and 325 ASA prior to arrival. Reports 'burning' feeling in his right chest for the past two hours, points to lower chest/upper abdomen when asked to localize. Pain is moderate, non-radiating, and not improved with nitro. No shortness of breath, lightheadedness, or syncope. Also reports burning RLE pain and swelling which has been present on and off for about a week; [facility] and states he had an ultrasound which showed no blood clots in his leg. Also reports receiving wound care, most recently today, for pressure ulcer on his buttock. He is otherwise in his usual state of health with no fevers, chills, rash, nausea, vomiting, flank pain, arm pain, back pain, new or worsening numbness, dysuria, hematuria, or other concerns. Related Data Home Medications Medication Instructions Recorded Confirmed omeprazole 20 mg capsule,delayed 40 mg PO DAILY AM 10/25/14 09/04/23 release albuterol sulfate 90 mcg/actuation 2 puff inhalation Q6H PRN 07/30/21 09/04/23 aerosol inhaler nitroglycerin 0.4 mg sublingual 0.4 mg sublingual Q5M PRN 07/30/21 09/04/23 tablet (Nitrostat) aspirin 81 mg tablet,delayed 81 mg PO DAILY 10/20/21 09/04/23 release calcium carbonate 500 mg-vitamin 2 tab PO DAILY 10/20/21 09/04/23 D3 5 mcg (200 unit) tablet (Calcium 500 + D) tiotropium bromide 2.5 2 puff inhalation DAILY 10/20/21 09/04/23 mcg/actuation mist for inhalation trazodone 100 mg tablet 300 mg PO HS 10/20/21 09/04/23 lidocaine 5 % topical patch 1 patch topical DAILY PRN pain #15 03/23/22 09/04/23 (Lidoderm) ea magnesium 250 mg tablet 250 mg PO DAILY #10 tabs 06/12/22 09/04/23 atorvastatin 40 mg tablet 80 mg (2 x 40 mg) PO HS #60 tabs 12/09/22 09/04/23 alendronate 70 mg tablet 70 mg PO QWEEK 02/18/23 09/04/23 cellulose,oxidized-collagen 4.34 02/18/23 09/04/23 X 4.34 45 %-55 % bandage Previous Rx's Medication Instructions Recorded lidocaine 5 % topical patch 1 patch topical DAILY PRN pain #15 03/23/22 (Lidoderm) ea magnesium 250 mg tablet 250 mg PO DAILY #10 tabs 06/12/22 atorvastatin 40 mg tablet 80 mg (2 x 40 mg) PO HS #60 tabs 12/09/22 Allergies Allergy/AdvReac Type Severity Reaction Status Date / Time No Known Allergies Allergy Verified 09/04/23 22:43 General Stated Complaint: Chest Pain EDITH: 3 Review of Systems Narrative: see HPI Exam Narrative Exam Narrative: General: Alert, in no acute distress. Head: Normocephalic, atraumatic Neck: Trachea midline, ?Neck supple. ENT: ?MMM.? Cardiac: ?RRR, no murmurs appreciated Resp: No respiratory distress. CTAB. Chest/ Abd: Right lower anterior chest wall and RUQ of abdomen minimally tender to palpation. No overlying rash. Abd soft, nontender, no rebound or guarding. Negative Al's. ? : ?No suprapubic tenderness. No CVA tenderness. Back: Small ~0.5cm circular ulcer to left buttock, dressing in place, no purulence, no overt signs of infection. Extremities: Left BKA. Right great toe with dry nectrotic ulcer to tip, dressing in place, not overtly infected. No palpable DP pulse; is present via Doppler. Good color. Diminished sensation, pt reports chronic. Non-pitting edema RLE up to knee. Neurologic: GCS 15. ? Moves all extremities freely against gravity Course Vital Signs Vital signs: Vital Signs Temperature 36.2 C L 09/04/23 22:35 Pulse 84 09/04/23 22:35 Respiratory Rate 20 09/04/23 22:35 Blood Pressure 164/123 H 09/04/23 22:35 Pulse Oximetry 95 09/04/23 22:35 Temperature 36.2 C L 09/04/23 22:35 Pulse 84 09/04/23 22:35 Respiratory Rate 18 09/04/23 22:42 Respiratory Effort Normal, Non-Labored 09/04/23 22:42 Respiratory Depth Normal 09/04/23 22:42 Respiratory Pattern Normal 09/04/23 22:42 Blood Pressure 164/123 H 09/04/23 22:35 Blood Pressure Position Supine 09/04/23 22:35 Pulse Oximetry 95 09/04/23 22:35 Oxygen Delivery Method Room Air 09/04/23 22:35 Oxygen Flow Rate 0 09/04/23 22:35 Pain Level 5 09/04/23 22:42 Lab/Test Results Lab/Test Results: Laboratory Tests Range/Units 09/04/23 22:28 WBC (4.4-10.8) 10^3/uL 12.80 H RBC (4.36-5.78) 10^6/uL 3.88 L Hgb (13.5-17.5) g/dL 12.6 L Hct (40.0-50.0) % 36.7 L MCV (80-95) fL 95 MCH (27.0-33.0) pg 32.5 MCHC (32.0-36.0) % 34.3 RDW (11.8-14.1) % 13.7 Plt Count (130-400) 10^3/uL 240 MPV (8.0-11.0) fL 10.5 Immature Gran % % 0.2 Neutrophils % % 68.5 Lymphocytes % % 19.0 Monocytes % % 6.4 Eosinophils % % 5.4 Basophils % % 0.5 Nucleated RBC % (0.0-0.3) % 0.0 Absolute Neutrophils (1.2-6.7) 10^3/uL 8.77 H Absolute Lymphocytes (1.2-3.4) 10^3/uL 2.43 Absolute Monocytes (0.1-0.8) 10^3/uL 0.82 H Absolute Eosinophils (0.0-0.7) 10^3/uL 0.69 Absolute Basophils (0.0-0.2) 10^3/uL 0.06 VBG pH (7.31-7.41) 7.41 VBG pCO2 (41-51) mmHg 44 VBG pO2 mmHg 84 VBG HCO3 (23-28) mmol/L 28 VBG Total CO2 (24-29) mmol/L 25 VBG O2 Saturation % 97 VBG Base Excess (-2-3) mmol/L 3 VBG Lactate (0.6-1.4) mmol/L 2.1 H Medical Decision Making 83yo M with hx HTN, COPD, PVD with left BKA, bialteral carotid stenosis, presenting via EMS with chest discomfort. Reports 'burning' feeling in his right chest for the past two hours, points to lower chest/upper abdomen when asked to localize. Also burning RLE pain and swelling which has been present on and off for about a week; [facility] and states he had an ultrasound which showed no blood clots in his leg. Hypertensive on arrival, vital signs otherwise reassuring. Physical exam non- toxic, some reproducible chest wall and upper abdominal tenderness. No rebound or guarding to suggest surgical abd. No palpable DP pulse RLE (BKA LLE); pulse is present via doppler. Limb is warm, no acute limb ischemia, would not get CTA of leg. No radiation to the back or UE symptoms to suggest aortic dissection. Not septic. EKG on arrival sinus with no ST segment or T wave abnormalitites to suggest occlusive PR. CXR independently reviewed, no focal pneumonia or pneumothorax on my view, agree with radiology read below. Bedside US with difficult windows 2/t b-lines/lung stafford, within limitations no large effusion or RV dilation. Labs reviewed as below, CBC reassuring (borderline leukocytosis at 12, Hg at baseline on [facility] record review), CMP with normal LFTS and no actionable abnormaltities, lipase normal (not pancreatitos) Mg slightly low at 1.6 (oral replacement given), BNP 1102 decreased from most recent prior here and pt with no hypoxia or increased work of breathing, troponin negative x 2. Dimer elevated at 1570; in the setting of chest pain and LE edema (though reports negative DVT US), will get CT for PE. VBG normal, lactate borderline at 2.1 (expect slightly elevated as labs sent were drawn in the ambulance and not freshly drawn). UA negative for infection. CT independently reviewed, no obstruction or free fluid on my view, no significant pulmonary edema, no large pulmonary embolism. agree with radiology read below (I do not suspect cholangitis). Patient advised of chronic/incidental findings and instructed to followup with his PCP. Given 40mg IV lasix (pt has been on PO lasix in the past but not currently) for peripheral edema. On reassessment he reports his chest pain has entirely resolved, leg pain is at baseline. Offered tylenol & toradol which he declined. Repeat vital signs reassuring, repeat exam with mild chest wall tenderness and no abdominal tenderness. Given age and risk factors would be appropriate for observation, morning echocardiogram, perhaps stress test; discussed with patient and he would prefer to go home [facility] which is not unreasonable. Discharged home; discharge instructions and return precuations were reviewed with patient who verbalized understanding. All questions were answered and he is in full agreement with the plan. Medical Records Medical records reviewed: Yes I reviewed the patient's medical records. Imaging Data Radiologic Study: Imaging: X-Ray Radiologist's impression: IMPRESSION: 1. Bilateral calcified pleural plaque stable since 12/07/2022. 2. No acute lung infiltrates or edema. 3. No acute pleural effusion or pneumothorax. Radiologic Study #2: Imaging: CT Scan Radiologist's impression: IMPRESSION: 1. Minor pneumobilia. Cannot exclude cholangitis. This could be reflection of previous biliary ductal instrumentation. Patient appears to be status post cholecystectomy. 2. No acute findings of the chest. Emphysematous lung changes. 3. Atherosclerotic thoracic aorta. No aneurysm or dissection. 4. No pulmonary arterial embolism. 5. Infrarenal abdominal aorta moderate stenosis with atherosclerotic calcium and soft atheromatous plaque. No aneurysmal features. 6. Multiple mesenteric vessels with severe stenotic origins. See above report. 7. No free fluid or free air. 8. Multiple bilateral simple renal cysts. 9. Bilateral nonspecific adrenal nodules. 10. Fatty liver infiltration. 11. Pancreatic atrophy. 12. Degenerative thoracolumbar spine. Previous L4-L5 fusion. Multifocal lumbar spinal stenosis. 13. Penile pump prosthesis. 14. Previous left hip fracture repair. 15. Extensive pleural plaque within the thorax. No soft tissue mass of the pleura evident. 16. Atelectasis versus scar of the lingular segment of the left upper lobe. 17. Moderate coronary artery atherosclerotic calcium Lab Data Lab results reviewed: Yes I reviewed the patient's lab results. Labs: Laboratory Tests Range/Units 09/04/23 09/04/23 09/04/23 20:28 22:28 22:55 WBC (4.4-10.8) 10^3/uL 12.80 H RBC (4.36-5.78) 10^6/uL 3.88 L Hgb (13.5-17.5) g/dL 12.6 L Hct (40.0-50.0) % 36.7 L MCV (80-95) fL 95 MCH (27.0-33.0) pg 32.5 MCHC (32.0-36.0) % 34.3 RDW (11.8-14.1) % 13.7 Plt Count (130-400) 10^3/uL 240 MPV (8.0-11.0) fL 10.5 Immature Gran % % 0.2 Neutrophils % % 68.5 Lymphocytes % % 19.0 Monocytes % % 6.4 Eosinophils % % 5.4 Basophils % % 0.5 Nucleated RBC % (0.0-0.3) % 0.0 Absolute Neutrophils (1.2-6.7) 10^3/uL 8.77 H Absolute Lymphocytes (1.2-3.4) 10^3/uL 2.43 Absolute Monocytes (0.1-0.8) 10^3/uL 0.82 H Absolute Eosinophils (0.0-0.7) 10^3/uL 0.69 Absolute Basophils (0.0-0.2) 10^3/uL 0.06 PT (9.1-11.1) sec INR (0.9-1.1) APTT (23.6-32.8) sec D-Dimer (<500) ng/mlFEU VBG pH (7.31-7.41) 7.41 VBG pCO2 (41-51) mmHg 44 VBG pO2 mmHg 84 VBG HCO3 (23-28) mmol/L 28 VBG Total CO2 (24-29) mmol/L 25 VBG O2 Saturation % 97 VBG Base Excess (-2-3) mmol/L 3 VBG Lactate (0.6-1.4) mmol/L 2.1 H Sodium (136-145) mmol/L 135 L Potassium (3.5-5.1) mmol/L 4.0 Chloride (98-107) mmol/L 99 Carbon Dioxide (21.0-32.0) mmol/L 26.1 Anion Gap (3-11) mmol/L 9.9 BUN (7-18) mg/dL 3 L Creatinine (0.70-1.30) mg/dL 0.7 Est GFR (CKD-EPI 2020) (mL/min/1.73m2) 92.57 Glucose (74-106) mg/dL 89 Calcium (8.5-10.1) mg/dL 9.1 Magnesium (1.8-2.4) mg/dL 1.6 L Total Bilirubin (0.2-1.0) mg/dL 0.5 AST (15-37) U/L 21 ALT (16-63) U/L 17 Alkaline Phosphatase (46-116) U/L 105 Troponin I (< or =60) ng/L < 50 NT-Pro-B Natriuret Pep (<300) pg/mL 1102 H Total Protein (6.4-8.2) g/dL 7.2 Albumin (3.4-5.0) g/dL 3.1 L Lipase (16-77) U/L 31 Urine Color (Yellow) Yellow Urine Clarity (Clear) Clear Urine pH (5-8) 6.0 Ur Specific [place] (1.005-1.025) 1.015 Urine Protein (Neg-Trace) mg/dL Trace Urine Ketones (Negative) mg/dL Negative Urine Blood (Negative) Negative Urine Nitrite (Negative) Negative Urine Bilirubin (Negative) Negative Urine Urobilinogen (Up to 0.2) mg/dL 0.2 Ur Leukocyte Esterase (Negative) Negative Urine Glucose (Negative) mg/dL Negative Range/Units 09/04/23 23:05 WBC (4.4-10.8) 10^3/uL RBC (4.36-5.78) 10^6/uL Hgb (13.5-17.5) g/dL Hct (40.0-50.0) % MCV (80-95) fL MCH (27.0-33.0) pg MCHC (32.0-36.0) % RDW (11.8-14.1) % Plt Count (130-400) 10^3/uL MPV (8.0-11.0) fL Immature Gran % % Neutrophils % % Lymphocytes % % Monocytes % % Eosinophils % % Basophils % % Nucleated RBC % (0.0-0.3) % Absolute Neutrophils (1.2-6.7) 10^3/uL Absolute Lymphocytes (1.2-3.4) 10^3/uL Absolute Monocytes (0.1-0.8) 10^3/uL Absolute Eosinophils (0.0-0.7) 10^3/uL Absolute Basophils (0.0-0.2) 10^3/uL PT (9.1-11.1) sec 10.5 INR (0.9-1.1) 1.0 APTT (23.6-32.8) sec 22.8 L D-Dimer (<500) ng/mlFEU 1570 H VBG pH (7.31-7.41) VBG pCO2 (41-51) mmHg VBG pO2 mmHg VBG HCO3 (23-28) mmol/L VBG Total CO2 (24-29) mmol/L VBG O2 Saturation % VBG Base Excess (-2-3) mmol/L VBG Lactate (0.6-1.4) mmol/L Sodium (136-145) mmol/L Potassium (3.5-5.1) mmol/L Chloride (98-107) mmol/L Carbon Dioxide (21.0-32.0) mmol/L Anion Gap (3-11) mmol/L BUN (7-18) mg/dL Creatinine (0.70-1.30) mg/dL Est GFR (CKD-EPI 2020) (mL/min/1.73m2) Glucose (74-106) mg/dL Calcium (8.5-10.1) mg/dL Magnesium (1.8-2.4) mg/dL Total Bilirubin (0.2-1.0) mg/dL AST (15-37) U/L ALT (16-63) U/L Alkaline Phosphatase (46-116) U/L Troponin I (< or =60) ng/L NT-Pro-B Natriuret Pep (<300) pg/mL Total Protein (6.4-8.2) g/dL Albumin (3.4-5.0) g/dL Lipase (16-77) U/L Urine Color (Yellow) Urine Clarity (Clear) Urine pH (5-8) Ur Specific [place] (1.005-1.025) Urine Protein (Neg-Trace) mg/dL Urine Ketones (Negative) mg/dL Urine Blood (Negative) Urine Nitrite (Negative) Urine Bilirubin (Negative) Urine Urobilinogen (Up to 0.2) mg/dL Ur Leukocyte Esterase (Negative) Urine Glucose (Negative) mg/dL Quality:SDOH Health Related Social Needs: No Data to Display PFSH All Active Problems (Updated 09/05/23 @ 02:27 by Ml Caldwell MD) Chest pain (Acute) Arterial vascular disease (Acute) Chronic wound (Acute) Leg pain (Acute) Elevated cholesterol (Chronic) Asbestosis (Acute) Psoriasis (Chronic) Chronic sinusitis (Acute) Cholecystitis (Acute) Lumbago (Acute) Hip pain (Acute) Cellulitis (Acute) Vertigo (Acute) Thrombosis of right vertebral artery (Acute) Bilateral carotid artery stenosis (Chronic) Lower urinary tract symptoms (LUTS) (Acute) Community acquired pneumonia (Acute) Hyponatremia (Chronic) Pancytopenia (Acute) Chest pain (Acute) Alcohol abuse (Chronic) Dizziness (Acute) Stenosis of right internal carotid artery (Acute) Peripheral vertigo of both ears (Acute) Peripheral neuropathy (Chronic) Thoracic vertebral fracture (Acute) Laceration of right thumb (Acute) Fracture of rib of left side (Chronic) Syncope (Acute) Pain (Acute) Hypertension (Chronic) COPD exacerbation (Acute) Intention tremor (Chronic) Insomnia (Acute) Wernicke encephalopathy (Acute) Pneumonia (Acute) Health insurance with [facility] (Acute) DNR (do not resuscitate) (Acute) Osteomyelitis of left foot (Acute) Anemia (Chronic) B12 deficiency anemia (Acute) Acute UTI (Acute) Continuous tobacco abuse (Chronic) Left ureteral stone (Acute) Medical History Alcohol abuse Per pt. 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
[2023-09-04 23:10] LABS: Bilirubin Negative (Negative); Blood Negative (Negative); Clarity Clear (Clear); Glucose Negative (Negative); Ketones Negative (Negative); Leukocyte Esterase Negative (Negative); Nitrite Negative (Negative); Specific Gravity 1.015 (1.005-1.025); Urobilinogen 0.2 mg/dL (Up to 0.2)
[2023-09-04 23:15] LABS: NT-proBNP 1102 pg/mL (<300)
[2023-09-04 23:26] LABS: PTT Activated 22.8 sec (23.6-32.8); Prothrombin Time 10.5 sec (9.1-11.1)
[2023-09-04 23:38] LABS: ALT 17 U/L (16-63); AST 21 U/L (15-37); Albumin 3.1 g/dL (3.4-5.0); Alkaline Phosphatase 105 U/L (46-116); Anion Gap 9.9 mmol/L (3-11); BUN 3 mg/dL (7-18); Bilirubin, Total 0.5 mg/dL (0.2-1.0); CO2 26.1 mmol/L (21.0-32.0); CREATININE 0.7 mg/dL (0.70-1.30); Calcium 9.1 mg/dL (8.5-10.1); Chloride 99 mmol/L (98-107); Estimated GFR 92.57 (mL/min/1.73m2); Glucose 89 mg/dL (74-106); Lipase 31 U/L (16-77); Magnesium 1.6 mg/dL (1.8-2.4); Sodium 135 mmol/L (136-145); Total Protein 7.2 g/dL (6.4-8.2); Troponin I < 50 ng/L (< or =60)
[2023-09-04 23:43] LABS: D-Dimer 1570 ng/mlFEU (<500)
--- NOTE | 2023-09-04 23:44 | DI.CT_ITS ---
Exam(s) CT CHEST PE ABD PELVIS W EXAM: CT CHEST PE ABD PELVIS W CLINICAL HISTORY: right sided chest pain, elevated dimer, RUQ abd pain. TECHNIQUE: Imaging Protocol: Axial CT angiography was performed with multi-slice acquisition and m ulti-planar and/or 3D reconstructions. CONTRAST MATERIAL: Intravenous: Omnipaque 350 Contrast volume:100 ml Oral: None COMPARISON: CR CHEST 2 VIEWS PA,LAT from 04/13/[address] RENAL COLIC WO from 03/07/[address] ABDOMEN PELVIS W from 06/12/2022 CR,XR XR PORTABLE CHEST AP from 09/04/2023 FINDINGS: CHEST: PULMONARY ARTERIES: There are no intra-arterial filling defects to suggest the presence of acute pulm onary emboli. LUNGS: There multiple bilateral calcified pleural plaques, these are most prominent anteriorly over t he left upper lobe.. There is what appears to be rounded atelectasis in the subpleural left upper lo be at this level. No confluent infiltrates in the right lung. No pleural effusions. Bilateral pleu ral effusions which were evident on the uppermost images of abdominal CT scan of February 2022 are no longer seen. No significant findings in the trachea and mainstem bronchi. MEDIASTINUM: There is no hilar nor mediastinal adenopathy. Visualized thyroid unremarkable. CARDIAC: Heart size is normal. There is no pericardial effusion. There is no significant shift of t he interventricular septum.Caliber of the thoracic aorta is within normal limits. No evidence of aor tic dissection. OSSEOUS: No significant osseous lesions.No acute fractures.. ABDOMEN: There is no ascites. LIVER: There are no focal hepatic lesions nor dilatation of intrahepatic ducts. GALLBLADDER/BILIARY: Gallbladder is not seen and presumed to be surgically absent. CBD is not dilate d. PANCREAS: No evidence of pancreatic mass nor dilatation of the pancreatic duct. SPLEEN: Spleen is not enlarged. There are no intrasplenic lesions. Splenic and portal veins are moreno nt. ADRENALS: There is a nodule in the right adrenal gland measuring 1.6 by 1.0, unchanged from previous and probably an adenoma. Slight thickening of the genu of the left adrenal gland is also unchanged. KIDNEYS:There are multiple bilateral kidney cysts again noted, these being larger on the left side an d measuring up to 5 cm diameter. These do not require further imaging workup as per MIPS criteria. Tiny punctate calculus in the right kidney noted. No hydronephrosis on either side. No hydroureter. . ABDOMINAL AORTA: Abdominal aorta is heavily calcified but not enlarged. There is calcified plaque at the origin of the celiac and SMA and renal arteries. The DOLORES is patent. Iliac arteries are calcifi ed but not enlarged. LYMPH NODES: There is no retroperitoneal or para-aortic adenopathy. ABDOMINAL WALL/GI: No evidence of significant anterior abdominal wall hernia. There is a penile impl ant with catheter in the left inguinal canal leading to the left intrapelvic reservoir (which is lynda pherally calcified). There is some air-gas noted within this finding on the left side. PELVIS: LYMPH NODES: There is no intrapelvic nor inguinal adenopathy. GI: No evidence of acute appendicitis.No evidence of sigmoid diverticulitis. URINARY BLADDER: Uniformly thickened urinary bladder wall. No diverticuli. Pelvic ureters are not l arge and there are no calculi at the ureterovesical junctions. REPRODUCTIVE: Prostate size minimally prominent. Seminal vesicles unremarkable. OSSEOUS: Left hip ORIF hardware noted. There is also fusion hardware in the lower lumbar spine at L4 -5 level, with bilateral intrapedicular screws at these level as well as an intervertebral disc devic e at L4-5 level. Schmorl's node invagination superior endplate of L4 noted. This is unchanged. Mil d loss of height of superior endplate of L1 is also unchanged. No listhesis. IMPRESSION: 1. No evidence of acute pulmonary emboli nor pulmonary infarction. No evidence of aortic dissection nor pericardial effusion. Heart size normal. 2. Multiple bilateral calcified pleural plaques are again noted with what appears to be scarring or r ounded atelectasis in the left upper lobe. The bilateral pleural effusions which were evident on the CT scan of February 2022 are no longer seen 3. Gallbladder not seen and presumed to be surgically absent. Biliary tree is not dilated. 4. Stable small right adrenal nodule probably benign adenoma. 5. Bilateral kidney cysts measuring up to 5 cm. These do not require follow-up according to MIPS cri teria. There are tiny nonobstructive calculi in both kidneys. No hydronephrosis. No calculi in the urinary bladder. 6. there is a penile prosthesis with filling catheter through the left inguinal canal leading to a pe ripherally calcified intrapelvic left-sided reservoir. There is some air-gas seen within the lumen o f the rest of wire. The rest wire is adjacent to the left side of the urinary bladder but does not a ppear to significantly compress the urinary bladder. Left hip ORIF hardware and L4-5 fusion hardware. RADIATION DOSE DELIVERED: Total DLP DATA REPOSITORY: All CT scans at this facility are submitted to the National Radiology Data Registry (NRDR) Dose Index Registry (DIR) with the [employer] (ACR). RADIATION OPTIMIZATION: All CT scans at this facility use at least one of these dose optimization te chniques: automated exposure control; mA and/or kV adjustment per patient size (includes targeted exa ms where dose is matched to clinical indication); or iterative reconstruction.
[2023-09-04] MEDS: Furosemide 40 MG/4 ML VIAL IVP (23:51)
--- NOTE | 2023-09-04 23:56 | DI.VRAD_ITS ---
PROCEDURE INFORMATION: Exam: XR Chest Exam date and time: 09/04/2023 11:19 PM Age: 83 years old Clinical indication: Chest wall pain; Additional info: Chest pain TECHNIQUE: Imaging protocol: Radiologic exam of the chest. Views: 1 view. COMPARISON: CR XR PORTABLE CHEST AP 12/07/2022 5:00 PM FINDINGS: Lungs: See Pleural spaces finding. Pleural spaces: Bilateral calcified pleural plaques. Stable since 12/07/2022. No acute lung infiltrates or consolidation. No pleural effusion. No pneumothorax. Heart/Mediastinum: Normal heart size. Bones/joints: No acute skeletal change. IMPRESSION: 1. Bilateral calcified pleural plaque stable since 12/07/2022. 2. No acute lung infiltrates or edema. 3. No acute pleural effusion or pneumothorax. Dictated and Authenticated by: Nikunj Garza MD. Ordering:STEPHANIE Bull MD
[2023-09-05] VITALS (51 sets, daily range): BP systolic 136–151; BP diastolic 70–72; PULSE 61–161; RESP 14–28; O2SAT 92–95
[2023-09-05] MEDS: Magnesium Gluconate 500 MG TAB PO (00:43)
[2023-09-05] MEDS: Normal Saline - Diluent 50 ML VIAL IJ (00:47)
[2023-09-05] MEDS: Omnipaque 350 MG/ML 100 ML BTL IJ (00:47)
--- NOTE | 2023-09-05 01:58 | DI.VRAD_ITS ---
PROCEDURE INFORMATION: Exam: CTA Chest With Contrast CTA Abdomen With Contrast Exam date and time: 09/05/2023 12:02 AM Age: 83 years old Clinical indication: Right-sided; Abdominal pain; Other: Ruq abd pain; Additional info: Right sided chest pain, elevated dimer, ruq abd pain TECHNIQUE: Imaging protocol: Computed tomographic angiography of the chest with contrast. Exam focused on the arteries. Computed tomographic angiography of the abdomen with contrast. Exam focused on the arteries. 3D rendering (Not supervised by radiologist): MIP and/or 3D reconstructed images were created by the technologist. Contrast material: OMNI 350; Contrast volume: 100 ml; Contrast route: INTRAVENOUS (IV); COMPARISON: CT CHEST PE CTA 06/10/2022 8:24 PM FINDINGS: Tubes, catheters and devices: Penile pump prosthesis. Left pelvic reservoir. VASCULATURE: Pulmonary arteries: Pulmonary arterial opacification is of good technical quality. No embolism. Aorta: Thoracic aorta with atherosclerotic calcium. No aneurysm. No dissection. No stenotic lesions. Abdominal aorta with severe atherosclerotic calcium and soft atheromatous plaque. There is no aneurysmal change. There is moderate aortic stenosis of the infrarenal abdominal aorta. The opacified lumen is approximately 50% of the diameter of the vessel. Celiac trunk and mesenteric arteries: Celiac artery origin severe stenosis at 80% diameter. Superior mesenteric artery origin severe stenosis due to atherosclerotic calcium. Renal arteries: Right renal artery severe stenosis. Left renal artery severe stenosis. Right iliac arteries: Right common iliac artery atherosclerotic calcium with severe stenosis. Right external iliac artery distal atherosclerotic calcium and severe stenosis. Left iliac arteries: Left common iliac artery atherosclerotic calcium. Severe proximal stenosis with subtotal occlusion and string sign of contrast opacification. The distal left external iliac artery has severe stenotic changes. CHEST: Lungs: Emphysematous lung changes bilaterally. Lingular segment left upper lobe linear opacification suggesting scar or atelectasis. Pleural spaces: Extensive bilateral flat calcified pleural plaques. No pleural based soft tissue mass. No pleural effusion. No pneumothorax. Heart: Unremarkable. No cardiomegaly. No pericardial effusion. ABDOMEN AND PELVIS: Liver: The liver is normal in size, contour and attenuation. Gallbladder and bile ducts: Absent gallbladder presumably surgical. No biliary ductal dilatation. Minor focus of pneumobilia in the central left hepatic lobe. See series 16: Image 208. Possibility of developing cholangitis. This could be a reflection of a previous sphincterotomy or biliary procedure. Recommend clinical correlation. Pancreas: Unremarkable. No mass. No ductal dilation. Spleen: Unremarkable. No splenomegaly. Adrenal glands: Bilateral adrenal nodules. Right adrenal nodule measuring 17 x 7 mm on series 15: Image 19. Left adrenal nodule measuring 15 x 10 mm series 15: Image 21. Nonspecific in appearance. Noncalcified. Recommend clinical correlation. No definable intrinsic fat. If imaging follow-up is warranted, recommend MRI adrenal protocol. Kidneys and ureters: Bilateral multiple benign-appearing renal cysts. Largest single cyst is medial upper pole left kidney measuring 5.5 cm.No further imaging follow-up of the renal cysts is recommended based on MIPS criteria. Stomach and bowel: Gastric morphology is unremarkable. No edema. No gastric outlet obstruction. Small bowel loops are unremarkable in course and caliber. Large bowel is unremarkable in course and caliber. No edema. No obstructive features. Intraperitoneal space: No free fluid. No free air. Urinary bladder: Urinary bladder is unremarkable in appearance. No wall thickening. No intravesicular calculi. No intravesicular gas. Lymph nodes: No lymphadenopathy of the lauri or mediastinum. Bones/joints: Degenerative thoracic spine. Anterior longitudinal ligament calcifications. Features suggest ankylosing spondylitis. Recommend clinical correlation. No acute skeletal change of the thorax. Previous left hip fracture repair. Severe lumbar spine degenerative disease. Multifocal lumbar spinal stenosis. Previous fusion L4-L5 of posterior elements and disc space. Prior L1 superior endplate compression. Central 50% loss of height. Soft tissues: Chest wall soft tissues are unremarkable. No acute features. IMPRESSION: 1. Minor pneumobilia. Cannot exclude cholangitis. This could be reflection of previous biliary ductal instrumentation. Patient appears to be status post cholecystectomy. 2. No acute findings of the chest. Emphysematous lung changes. 3. Atherosclerotic thoracic aorta. No aneurysm or dissection. 4. No pulmonary arterial embolism. 5. Infrarenal abdominal aorta moderate stenosis with atherosclerotic calcium and soft atheromatous plaque. No aneurysmal features. 6. Multiple mesenteric vessels with severe stenotic origins. See above report. 7. No free fluid or free air. 8. Multiple bilateral simple renal cysts. 9. Bilateral nonspecific adrenal nodules. 10. Fatty liver infiltration. 11. Pancreatic atrophy. 12. Degenerative thoracolumbar spine. Previous L4-L5 fusion. Multifocal lumbar spinal stenosis. 13. Penile pump prosthesis. 14. Previous left hip fracture repair. 15. Extensive pleural plaque within the thorax. No soft tissue mass of the pleura evident. 16. Atelectasis versus scar of the lingular segment of the left upper lobe. 17. Moderate coronary artery atherosclerotic calcium. Dictated and Authenticated by: Nikunj Garza MD. Ordering:STEPHANIE Bull MD
[2023-09-05 02:03] LABS: Troponin I < 50 ng/L (< or =60)
== END 2023-09-05 02:45 | disposition home or self-care (01) ==
PROVIDERS: Emergency Provider Student in an Organized Health Care Education/Training Program; PCP Internal Medicine
DX: R07.9 Chest pain, unspecified (principal); M79.604 Pain in right leg; R22.41 Localized swelling, mass and lump, right lower limb; I70.90 Unspecified atherosclerosis
CPT/HCPCS: 36415; 71275; 74177; 80053; 82805; 83690; 93005; 96374; 99285; 71045; 81003; 83605; 83735; 83880; 84484; 85025; 85379; 85610; 85730; 93010; 99283; J1940; J3490

== ENCOUNTER 2023-12-07 23:34 | Emergency (ER) | payer OTHER, SELFPAY ==
[2023-12-07 23:29] VITALS: BP 148/73; PULSE 80; RESP 16; TEMP 36; O2SAT 97
--- NOTE | 2023-12-07 23:30 | RT.EKG_ITS ---
APPROVED REPORT Exam: Resting ECG Reason for Exam: vomiting Patient Location: E HR:76 bpm ECG Measurements Heart Rate 76 AXIS NH 160 P 77 QRSd 95 QRS 52 QT 403 T -44 QTc 455 Conclusion Sinus rhythm...normal P axis, V-rate 60- 99 Ventricular bigeminy...bigeminy string>4 w/ V complexes I have reviewed and interpreted ECG and agree with software generated interpretation.
[2023-12-07] MEDS: Lactated Ringers 1,000 ML 1000 ML IV (23:45)
[2023-12-07] MEDS: Ondansetron 4 MG/2 ML VIAL IVP (23:45)
--- NOTE | 2023-12-07 23:52 | ED.GENADUL_ITS ---
Discharge Plan Disposition Patient Disposition: Home Condition: Good Discharge Details Clinical Impression: Hypokalemia, Hypomagnesemia, Enteritis Primary Care Provider: Brad Morrow ED Provider: Ignacio Neri Home Meds and New Rx's Prescriptions: New potassium chloride 20 mEq tablet extended release 20 meq PO DAILY Qty: 10 0RF No Action nitroglycerin [Nitrostat] 0.4 mg tablet, sublingual 0.4 mg Sublingual Q5M PRN Patient Comments: doesn't have chest pain Rx Instructions: for chest pain (DME) cellulose,oxidized-collagen 4.34 X 4.34 (45 %-55 %) bandage See Rx Instructions .ROUTE Rx Instructions: As directed alendronate 70 mg tablet 70 mg PO QWEEK omeprazole 20 MG capsule,delayed release(DR/EC) 40 mg PO DAILY AM Patient Comments: Pt. states that he doesn't take this medication. albuterol sulfate 90 mcg/actuation HFA aerosol inhaler 2 puff INHALATION Q6H PRN aspirin 81 mg Tablet,Delayed Release (Dr/Ec) 81 mg PO DAILY calcium carbonate-vitamin D3 [Calcium 500 + D] 500 mg-5 mcg (200 unit) Tablet 2 tab PO DAILY tiotropium bromide 2.5 mcg/actuation Mist 2 puff INHALATION DAILY trazodone 100 mg Tablet 300 mg PO HS magnesium 250 mg tablet 250 mg PO DAILY Qty: 10 0RF atorvastatin 40 mg Tablet 80 mg PO HS Qty: 60 0RF lidocaine [Lidoderm] 5 % adhesive patch,medicated 1 patch TP DAILY PRN (Reason: pain) Qty: 15 0RF Rx Instructions: leave on most painful area for up to 12 hrs Discharge Instructions Instructions: Viral gastroenteritis in adults, Hypokalemia, Hypomagnesemia Additional Instructions: At this time your CAT scan shows no evidence of obstruction. There is mild irritation of your intestine suggestive of mild gastroenteritis. Additionally your electrolytes demonstrated a low potassium and low magnesium level. This has been corrected with IV fluids and electrolyte replacement. You have been given a prescription of potassium to take outpatient. [facility] your [facility]. If you notice any worsening of your symptoms, or any new symptoms such as vomiting, diarrhea, fever, chills, shortness of breath, chest pain, numbness, weakness, or fainting , please return immediately to the emergency department for reevaluation. Please follow up with your primary care provider as soon as possible for reassessment and reevaluation. As always, it was a pleasure participating in your medical care today. Referrals: Brad Morrow [Primary Care Provider] - [facility] General Date/Time Provider Initiated Documentation: 12/07/23 23:35 . HPI Narrative: This is a pleasant 83-year-old male who is a [facility] patient with a past medical history of hypertension, high cholesterol, GERD, COPD, previous alcohol abuse, carotid artery stenosis, previous kidney stone, left lower extremity amputation, cholecystectomy, who presents today for evaluation of abdominal pain. Patient states that for the last 10 days he has a diminished appetite, he has been occasionally and intermittently vomiting, and has had low abdominal and low back pain. Last bowel movement was 3 days ago. He has been eating occasionally but gets very nauseous and vomits whenever he does. He denies chest pain or shortness of breath. He denies fever or chills. He denies any blood in his vomit or his stool. No other complaints at this time. No other modifying factors. Related Data Home Medications ?Medication ?Instructions ?Recorded ?Confirmed omeprazole 20 mg capsule,delayed 40 mg PO DAILY AM 10/25/14 09/04/23 release albuterol sulfate 90 mcg/actuation 2 puff inhalation Q6H PRN 07/30/21 09/04/23 aerosol inhaler nitroglycerin 0.4 mg sublingual 0.4 mg sublingual Q5M PRN 07/30/21 09/04/23 tablet (Nitrostat) aspirin 81 mg tablet,delayed 81 mg PO DAILY 10/20/21 09/04/23 release calcium carbonate 500 mg-vitamin 2 tab PO DAILY 10/20/21 09/04/23 D3 5 mcg (200 unit) tablet (Calcium 500 + D) tiotropium bromide 2.5 2 puff inhalation DAILY 10/20/21 09/04/23 mcg/actuation mist for inhalation trazodone 100 mg tablet 300 mg PO HS 10/20/21 09/04/23 lidocaine 5 % topical patch 1 patch topical DAILY PRN pain #15 03/23/22 09/04/23 (Lidoderm) ea magnesium 250 mg tablet 250 mg PO DAILY #10 tabs 06/12/22 09/04/23 atorvastatin 40 mg tablet 80 mg (2 x 40 mg) PO HS #60 tabs 12/09/22 09/04/23 alendronate 70 mg tablet 70 mg PO QWEEK 02/18/23 09/04/23 cellulose,oxidized-collagen 4.34 02/18/23 09/04/23 X 4.34 45 %-55 % bandage potassium chloride 20 mEq 20 meq PO DAILY #10 tabs 12/08/23 tablet,extended release Previous Rx's ?Medication ?Instructions ?Recorded lidocaine 5 % topical patch 1 patch topical DAILY PRN pain #15 03/23/22 (Lidoderm) ea magnesium 250 mg tablet 250 mg PO DAILY #10 tabs 06/12/22 atorvastatin 40 mg tablet 80 mg (2 x 40 mg) PO HS #60 tabs 12/09/22 potassium chloride 20 mEq 20 meq PO DAILY #10 tabs 12/08/23 tablet,extended release Allergies Allergy/AdvReac Type Severity Reaction Status Date / Time No Known Allergies Allergy Verified 12/07/23 23:34 General Stated Complaint: GenMedical EDITH: 3 Review of Systems All systems reviewed & are unremarkable except as noted in HPI and below Exam Narrative Exam Narrative: 1.Const: Well-nourished, Well-developed, appearing stated age 2.Eyes: PERRL, no conjunctival injection, and symmetrical lids. 3.ENT: Atraumatic external nose and ears. Moist MM. Neck: Symmetric, trachea midline, No thyromegaly. 4.CVS: +S1/S2, No murmurs or gallops. Peripheral pulses 2+ and equal in all extremities. Brisk capillary refill in all extremities. 5.RESP: Unlabored respiratory effort. Clear to auscultation bilaterally. No wheezes rales or rhonchi 6.GI: Soft, Nondistended, No hepatosplenomegaly. Mild achiness throughout the abdomen, but no focal tenderness. 7.MSK: Normocephalic/Atraumatic, Extremities w/o deformity or ttp No cyanosis or clubbing, Normal movement of all extremities 8.Skin: Warm, Dry. No rashes or lesions. 9.Neuro: trimming cutter II-XII grossly intact. Sensation grossly intact, no focal neurologic deficits. 10.Psych: (AAO) x3. Appropriate mood and affect Course Vital Signs Vital signs: Vital Signs Temperature 36 C L 12/07/23 23:29 Pulse 80 12/07/23 23:29 Respiratory Rate 16 12/07/23 23:29 Blood Pressure 148/73 H 12/07/23 23:29 Pulse Oximetry 97 12/07/23 23:29 Temperature 36 C L 12/07/23 23:29 Temperature Source Temporal Artery Scan 12/07/23 23:29 Pulse 80 12/07/23 23:29 Respiratory Rate 16 12/07/23 23:29 Respiratory Effort Normal, Non-Labored 12/07/23 23:33 Blood Pressure 148/73 H 12/07/23 23:29 Blood Pressure Position Supine 12/07/23 23:29 Pulse Oximetry 97 12/07/23 23:29 Oxygen Delivery Method Room Air 12/07/23 23:29 Oxygen Flow Rate 0 12/07/23 23:29 Medical Decision Making This is a pleasant 83-year-old male who is a [facility] patient with a past medical history of hypertension, high cholesterol, GERD, COPD, previous alcohol abuse, carotid artery stenosis, previous kidney stone, left lower extremity amputation, cholecystectomy, who presents today for evaluation of abdominal pain. Patient states that for the last 10 days he has a diminished appetite, he has been occasionally and intermittently vomiting, and has had low abdominal and low back pain. Last bowel movement was 3 days ago. He has been eating occasionally but gets very nauseous and vomits whenever he does. He denies chest pain or shortness of breath. He denies fever or chills. He denies any blood in his vomit or his stool. No other complaints at this time. No other modifying factors. Physical exam demonstrates well-appearing male, dry mucous membranes, mild achiness throughout the abdomen, but no focal tenderness. Differential includes partial obstruction or ileus, tumor or mass, less likely pancreatitis. Less likely cardiac etiology. Will gently rehydrate, get a CT scan evaluate for these concerning etiologies, monitor closely and reassess. 3:44 AM Laboratory workup has returned, no white count, hemoglobin 13.2, potassium low at 2.8, magnesium low at 1.5. Patient was given 2 g of magnesium and 20 IV mEq of potassium. He tolerated this well. He has been able to tolerate p.o. trial here without difficulty. He feels better. CT scan results have returned and shows some evidence of enteritis but no evidence of ileus or obstruction. Troponin normal. EKG shows PVCs, no STEMI. QTc and QRS normal. Patient feels well and is otherwise stable. Patient is requesting discharge. Will give prescription for 20 mEq potassium daily for the next few days. Patient does [facility]. Patient has specialized transport arranged for that secondary to his wheelchair, weakness, and amputation status. No transport available to bring the patient back at this time. Patient does have chronic weakness, chronic back pain, and in conjunction with his left lower extremity amputation he needs additional assistance for mobilization and movement. RCT unable to provide this. We will contact EMS for transport. Patient stable for discharge. Discussed red flags for which to return. I have extensively reviewed the treatment plan and discharge instructions with the patient. I have addressed all patient concerns at this time. The patient was made aware of what symptoms to monitor for that would warrant a return to the emergency department. Discussed the plan with the patient, they demonstrate verbal understanding and agreement with our assessment and plan at this time. The documentation in this chart was dictated using [employer] dictation software. Please excuse any dictation errors. FINDINGS: Tubes, catheters and devices: There is a hydraulic penile prosthesis in place the reservoir lies within the left inguinal region. Lungs: There is heterogeneous attenuation of the pulmonary parenchyma, consistent with air trapping from underlying small airways disease. Moderate centrilobular emphysematous changes are present. Pleural spaces: There is no evidence of pneumothorax. There are no pleural effusions present. There are diaphragmatic and pleural calcifications consistent with remote asbestos exposure. Heart: Calcification of the mitral and tricuspid valve present. Coronary arteries: There is mild atherosclerotic calcification of the coronary arteries. Liver: There is a diffuse decrease in hepatic parenchymal density, consistent with mild fatty infiltration. No focal hepatic lesions Gallbladder and biliary ducts: There has been a cholecystectomy. Pancreas: Moderate pancreatic atrophy. No ductal dilation. Spleen: The spleen is normal. Adrenal glands: Low-attenuation masses within the adrenal glands 12 mm on the right and 15 mm on the left likely representing adrenal adenomas. Kidneys and ureters: Multiple simple appearing cysts present within both kidneys largest within the right kidney measuring 2.9 cm largest within the left kidney measuring 5.4 cm. No follow-up indicated. Stomach and bowel: There are fluid-filled loops of small bowel with air-fluid levels. No significant bowel wall thickening or inflammatory changes. No evidence of obstruction. Consider early enteritis. Appendix: A normal appendix is identified. There is no evidence of distention or periappendiceal inflammation to suggest appendicitis. Intraperitoneal space: There is no free intraperitoneal air. There is no evidence of free intraperitoneal or pelvic fluid. Vasculature: The aorta demonstrates severe atherosclerotic calcification . Findings similar to the prior study 09/05/2023. The arterial peripheral vasculature demonstrates diffuse marked atherosclerotic calcification. Findings similar to the prior study 09/05/2023. Atherosclerotic plaquing of the mesenteric and renal arteries present with severe stenosis of the right and left renal arteries mild stenosis of the celiac and moderate to severe stenosis of the superior m esenteric artery. The inferior mesenteric artery is widely patent. Findings similar to the prior study 09/05/2023. Lymph nodes: There is no evidence of lymphadenopathy. Urinary bladder: There is nonspecific bladder wall thickening. This may be related to incomplete bladder filling. Reproductive: The prostate gland demonstrates calcification and mild nonspecific enlargement. The seminal vesicles are normal. Bones/joints: There are postsurgical changes present at the L4-L5 lumbar region with posterior fusion changes in disc prosthesis and laminectomy. The thoracolumbar spine demonstrates moderate degenerative changes at multiple levels. There has been open reduction internal fixation of the left femur for fracture. No acute fracture identified. The skeletal structures and soft tissues show no evidence of fracture or other acute processes. Soft tissues: The extra-abdominal soft tissues are normal. IMPRESSION: 1. There are fluid-filled loops of small bowel with air-fluid levels. No signifi cant bowel wall thickening or inflammatory changes. No evidence of obstruction. Consider early enteritis. 2. There is heterogeneous attenuation of the pulmonary parenchyma, consistent with air trapping from underlying small airways disease. 3. Multiple simple appearing cysts present within both kidneys largest within the right kidney measuring 2.9 cm largest within the left kidney measuring 5.4 cm. No follow-up indicated. Thank you for allowing us to participate in the care of your patient. Dictated and Authenticated by: Nikunj Higgins MD 12/08/2023 2:03 AM Eastern Time ([place] & [place]) Quality:SDOH Health Related Social Needs: No Data to Display Critical Care Time Critical Care Time Critical Care Time: Yes Total Critical Care Time: 45 Attestation: Upon my evaluation, this patient had a high probability of imminent or life- threatening deterioration secondary to electrolyte abnormality, which required my direct attention, intervention, and personal management. I have personally provided 45 minutes of critical care time exclusive of time spent on separately billable procedures. Time includes review of laboratory data, radiology results, discussion with consultants, and monitoring for potential decompensation. Interventions were performed as documented. [facility] All Active Problems (Updated 12/08/23 @ 03:38 by Ignacio Neri DO) Enteritis (Acute) Hypomagnesemia (Acute) Hypokalemia (Acute) Elevated cholesterol (Chronic) Asbestosis (Acute) Psoriasis (Chronic) Chronic sinusitis (Acute) Cholecystitis (Acute) Lumbago (Acute) Hip pain (Acute) Cellulitis (Acute) Vertigo (Acute) Thrombosis of right vertebral artery (Acute) Bilateral carotid artery stenosis (Chronic) Lower urinary tract symptoms (LUTS) (Acute) Community acquired pneumonia (Acute) Hyponatremia (Chronic) Pancytopenia (Acute) Chest pain (Acute) Alcohol abuse (Chronic) Dizziness (Acute) Stenosis of right internal carotid artery (Acute) Peripheral vertigo of both ears (Acute) Peripheral neuropathy (Chronic) Thoracic vertebral fracture (Acute) Laceration of right thumb (Acute) Fracture of rib of left side (Chronic) Syncope (Acute) Pain (Acute) Hypertension (Chronic) COPD exacerbation (Acute) Intention tremor (Chronic) Insomnia (Acute) Wernicke encephalopathy (Acute) Pneumonia (Acute) Health insurance with [facility] (Acute) DNR (do not resuscitate) (Acute) Osteomyelitis of left foot (Acute) Anemia (Chronic) B12 deficiency anemia (Acute) Acute UTI (Acute) Continuous tobacco abuse (Chronic) Left ureteral stone (Acute) Medical History Left ureteral stone Stenosis of both internal carotid arteries Orthostatic hypotension Vertigo Hx of hyperlipidemia HTN (hypertension) GERD (gastroesophageal reflux disease) Alcohol abuse Per pt. 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
[2023-12-08] VITALS (17 sets, daily range): BP systolic 174; BP diastolic 87; PULSE 74–82; RESP 18; O2SAT 96–97
--- NOTE | 2023-12-08 | DI.CT_ITS ---
Exam(s) CT ABDOMEN PELVIS W EXAM: CT ABDOMEN PELVIS W CLINICAL HISTORY: vomiting, generalized abdominal pain, eval for obs. TECHNIQUE: Imaging Protocol: Axial computed tomography images with coronal and sagittal reformatted images were created and reviewed CONTRAST MATERIAL: Intravenous: Omnipaque-350 100cc Oral: None COMPARISON: CT CT CHEST PE ABD PELVIS W from 09/05/2023 FINDINGS: VISUALIZED LUNG BASES: No nodules nor pleural effusions evident. Calcified pleural plaque noted in b oth lung bases, previously documented. ABDOMEN: There is no ascites. LIVER: There are no focal hepatic lesions evident. No dilated intrahepatic ducts. GALLBLADDER/BILIARY: Not seen and presumed to be surgically absent. CBD is not dilated. PANCREAS: No evidence of pancreatic mass nor dilatation of the pancreatic duct. SPLEEN: Spleen is not enlarged. No obvious intrasplenic lesions. Splenic and portal veins are paten t. ADRENALS: Small nodules in both adrenal glands again noted and are probably small adenomas. KIDNEYS:Bilateral benign cysts are again noted in both kidneys. Largest is again noted to be in the superior pole the left kidney, measuring 5.4 x 4 0.0 cm. These benign cysts do not require further w orkup. No solid renal masses nor calculi. The nephrosis.. ABDOMINAL AORTA: Abdominal aorta is heavily calcified and atherosclerotic but not dilated. Iliac art eries are also heavily calcified-atherosclerotic but not dilated. LYMPH NODES:There is no retroperitoneal nor paraaortic adenopathy. ABDOMINAL WALL: No evidence of significant anterior abdominal wall nor inguinal hernia. GI: There is no evidence of bowel obstruction, free air, nor abscess. PELVIS: GI: No evidence of appendicitis.No evidence of sigmoid diverticulitis. LYMPH NODES: There is no intrapelvic nor inguinal adenopathy. REPRODUCTIVE: Prostate size upper normal. URINARY BLADDER: Urinary bladder enrique diffusely thickened. No diverticuli. No intraluminal calculi evident. Small asymmetric density in left side of the urinary bladder noted (series 18/image 64). Cannot exclude polyp or neoplasm. Previously described penile prosthesis is again noted. The intrap elvic reservoir is again noted be peripherally calcified. OSSEOUS: Left hip ORIF hardware noted. Also fusion hardware in the lumbar spine. Indentation of sup erior endplates of L1 and L4 again noted, unchanged. IMPRESSION: 1. There is diffuse thickening of the urinary bladder wall. Small asymmetric moderately enhanced den sity in left side of the urinary bladder noted which represents small neoplasm. Cystoscopy recommend ed. Prostate size upper normal. 2. Other nonemergent findings as above RADIATION DOSE DELIVERED: 325.82mGy.cm Total DLP DATA REPOSITORY: All CT scans at this facility are submitted to the National Radiology Data Registry (NRDR) Dose Index Registry (DIR) with the [employer] (ACR). RADIATION OPTIMIZATION: All CT scans at this facility use at least one of these dose optimization te chniques: automated exposure control; mA and/or kV adjustment per patient size (includes targeted exa ms where dose is matched to clinical indication); or iterative reconstruction.
[2023-12-08 00:16] LABS: Abs Immature Grans 0.02 10^3/uL (0.0-0.06); Absolute Basophil Count 0.08 10^3/uL (0.0-0.2); Absolute Eosinophil Count 0.19 10^3/uL (0.0-0.7); Absolute Lymphocyte Count 1.66 10^3/uL (1.2-3.4); Absolute Monocyte Count 0.69 10^3/uL (0.1-0.8); Absolute Neutrophil Count 5.21 10^3/uL (1.2-6.7); Eosinophils % 2.4 %; HCT 38.3 % (40.0-50.0); HGB 13.2 g/dL (13.5-17.5); Immature Grans % 0.3 %; Lymphocytes % 21.1 %; MCH 31.2 pg (27.0-33.0); MCHC 34.5 % (32.0-36.0); MCV 91 fL (80-95); MPV 10.5 fL (8.0-11.0); Monocytes % 8.8 %; Neutrophils % 66.4 %; Platelet Count 285 10^3/uL (130-400); RBC 4.23 10^6/uL (4.36-5.78); RDW 12.5 % (11.8-14.1); WBC 7.85 10^3/uL (4.4-10.8)
[2023-12-08 00:21] LABS: ALT 15 U/L (16-63); AST 25 U/L (15-37); Albumin 2.9 g/dL (3.4-5.0); Alkaline Phosphatase 114 U/L (46-116); Anion Gap 6.6 mmol/L (3-11); BUN 15 mg/dL (7-18); CO2 30.4 mmol/L (21.0-32.0); Chloride 98 mmol/L (98-107); Estimated GFR 75.61 (mL/min/1.73m2); Glucose 107 mg/dL (74-106); Lipase 30 U/L (16-77); Sodium 135 mmol/L (136-145); Total Protein 7.2 g/dL (6.4-8.2); Troponin I 27 ng/L (<or=76)
[2023-12-08 00:25] LABS: Potassium 2.8 mmol/L (3.5-5.1)
[2023-12-08 00:29] LABS: Calcium 9.9 mg/dL (8.5-10.1)
[2023-12-08] MEDS: Omnipaque 350 MG/ML 100 ML BTL IJ (00:31)
[2023-12-08] MEDS: Normal Saline - Diluent 50 ML VIAL IJ (00:32)
[2023-12-08] MEDS: Normal Saline Flush 10 ML SYR IVP (00:32)
[2023-12-08 00:53] LABS: Magnesium 1.5 mg/dL (1.8-2.4)
[2023-12-08] MEDS: POTASSIUM CHLORIDE 20 MEQ/100 ML BAG 50 MEQ IVINF (01:11)
[2023-12-08 01:29] LABS: Troponin I 24 ng/L (<or=76)
[2023-12-08] MEDS: MAGNESIUM SULFATE 2 GM/50 ML BAG IVINF (02:01)
[2023-12-08 02:02] LABS: Bilirubin Negative (Negative); Blood Negative (Negative); Clarity Clear (Clear); Glucose Negative (Negative); Ketones Negative (Negative); Leukocyte Esterase Negative (Negative); Nitrite Negative (Negative); Specific Gravity 1.015 (1.005-1.025)
--- NOTE | 2023-12-08 02:04 | DI.VRAD_ITS ---
PROCEDURE INFORMATION: Exam: CT Abdomen And Pelvis With Contrast Exam date and time: 12/08/2023 12:32 AM Age: 83 years old Clinical indication: Prior surgery; Surgery date: 6+ months; Surgery type: Cholecystectomy, spine implants, penile implant, femur beena; Patient HX: Vomiting, generalized abdominal pain, eval for obs TECHNIQUE: Imaging protocol: Computed tomography of the abdomen and pelvis with contrast. Radiation optimization: All CT scans at this facility use at least one of these dose optimization techniques: automated exposure control; mA and/or kV adjustment per patient size (includes targeted exams where dose is matched to clinical indication); or iterative reconstruction. Contrast material: OMNIPAQUE 350; Contrast volume: 100 ml; Contrast route: INTRAVENOUS (IV); COMPARISON: CT CHEST PE ABD PELVIS W 09/05/2023 12:02 AM FINDINGS: Tubes, catheters and devices: There is a hydraulic penile prosthesis in place the reservoir lies within the left inguinal region. Lungs: There is heterogeneous attenuation of the pulmonary parenchyma, consistent with air trapping from underlying small airways disease. Moderate centrilobular emphysematous changes are present. Pleural spaces: There is no evidence of pneumothorax. There are no pleural effusions present. There are diaphragmatic and pleural calcifications consistent with remote asbestos exposure. Heart: Calcification of the mitral and tricuspid valve present. Coronary arteries: There is mild atherosclerotic calcification of the coronary arteries. Liver: There is a diffuse decrease in hepatic parenchymal density, consistent with mild fatty infiltration. No focal hepatic lesions Gallbladder and biliary ducts: There has been a cholecystectomy. Pancreas: Moderate pancreatic atrophy. No ductal dilation. Spleen: The spleen is normal. Adrenal glands: Low-attenuation masses within the adrenal glands 12 mm on the right and 15 mm on the left likely representing adrenal adenomas. Kidneys and ureters: Multiple simple appearing cysts present within both kidneys largest within the right kidney measuring 2.9 cm largest within the left kidney measuring 5.4 cm. No follow-up indicated. Stomach and bowel: There are fluid-filled loops of small bowel with air-fluid levels. No significant bowel wall thickening or inflammatory changes. No evidence of obstruction. Consider early enteritis. Appendix: A normal appendix is identified. There is no evidence of distention or periappendiceal inflammation to suggest appendicitis. Intraperitoneal space: There is no free intraperitoneal air. There is no evidence of free intraperitoneal or pelvic fluid. Vasculature: The aorta demonstrates severe atherosclerotic calcification . Findings similar to the prior study 09/05/2023. The arterial peripheral vasculature demonstrates diffuse marked atherosclerotic calcification. Findings similar to the prior study 09/05/2023. Atherosclerotic plaquing of the mesenteric and renal arteries present with severe stenosis of the right and left renal arteries mild stenosis of the celiac and moderate to severe stenosis of the superior mesenteric artery. The inferior mesenteric artery is widely patent. Findings similar to the prior study 09/05/2023. Lymph nodes: There is no evidence of lymphadenopathy. Urinary bladder: There is nonspecific bladder wall thickening. This may be related to incomplete bladder filling. Reproductive: The prostate gland demonstrates calcification and mild nonspecific enlargement. The seminal vesicles are normal. Bones/joints: There are postsurgical changes present at the L4-L5 lumbar region with posterior fusion changes in disc prosthesis and laminectomy. The thoracolumbar spine demonstrates moderate degenerative changes at multiple levels. There has been open reduction internal fixation of the left femur for fracture. No acute fracture identified. The skeletal structures and soft tissues show no evidence of fracture or other acute processes. Soft tissues: The extra-abdominal soft tissues are normal. IMPRESSION: 1. There are fluid-filled loops of small bowel with air-fluid levels. No significant bowel wall thickening or inflammatory changes. No evidence of obstruction. Consider early enteritis. 2. There is heterogeneous attenuation of the pulmonary parenchyma, consistent with air trapping from underlying small airways disease. 3. Multiple simple appearing cysts present within both kidneys largest within the right kidney measuring 2.9 cm largest within the left kidney measuring 5.4 cm. No follow-up indicated. Dictated and Authenticated by: Nikunj Higgins MD. Ordering:MILLIE Pierre MD
== END 2023-12-08 03:49 | disposition home or self-care (01) ==
PROVIDERS: Emergency Provider Student in an Organized Health Care Education/Training Program; PCP Internal Medicine
DX: R10.9 Unspecified abdominal pain (principal); R11.11 Vomiting without nausea; K52.9 Noninfective gastroenteritis and colitis, unspecified; E83.42 Hypomagnesemia; E87.6 Hypokalemia
CPT/HCPCS: 80053; 83690; 93005; 96361; 96365; 96375; 99291; 74177; 81003; 83735; 84484; 85025; 93010; J2405; J3475; J3480; J3490

== ENCOUNTER 2024-07-24 14:43 | Emergency (ER) | payer OTHER, SELFPAY ==
[2024-07-24 14:54] VITALS: BP 123/95; PULSE 82; RESP 16; TEMP 36.9; O2SAT 93
--- NOTE | 2024-07-24 15:22 | ED.GENADUL_ITS ---
Discharge Plan Disposition Patient Disposition: Home Condition: Stable Discharge Details Clinical Impression: Hypomagnesemia Primary Care Provider: Brad Morrow ED Provider: Catracho Hylton Home Meds and New Rx's Prescriptions: New ondansetron 4 mg tablet,disintegrating 4 mg PO Q8H PRN (Reason: nausea and vomiting) Qty: 30 0RF Continued nitroglycerin [Nitrostat] 0.4 mg tablet, sublingual 0.4 mg Sublingual Q5M PRN Patient Comments: doesn't have chest pain Rx Instructions: for chest pain (DME) cellulose,oxidized-collagen 4.34 X 4.34 (45 %-55 %) bandage See Rx Instructions .ROUTE Rx Instructions: As directed alendronate 70 mg tablet 70 mg PO QWEEK omeprazole 20 MG capsule,delayed release(DR/EC) 40 mg PO DAILY AM Patient Comments: Pt. states that he doesn't take this medication. albuterol sulfate 90 mcg/actuation HFA aerosol inhaler 2 puff INHALATION Q6H PRN aspirin 81 mg Tablet,Delayed Release (Dr/Ec) 81 mg PO DAILY calcium carbonate-vitamin D3 [Calcium 500 + D] 500 mg-5 mcg (200 unit) Tablet 2 tab PO DAILY tiotropium bromide 2.5 mcg/actuation Mist 2 puff INHALATION DAILY trazodone 100 mg Tablet 300 mg PO HS magnesium 250 mg tablet 250 mg PO DAILY Qty: 10 0RF atorvastatin 40 mg Tablet 80 mg PO HS Qty: 60 0RF potassium chloride 20 mEq tablet extended release 20 meq PO DAILY Qty: 10 0RF Discharge Instructions Instructions: Hypomagnesemia Additional Instructions: Try to increase your dietary intake of magnesium. You can try doing meal replacement shakes or Ensure shakes. Follow-up with your primary care provider within 1 to 2 weeks. If you feel significantly more ill or have new symptoms such as persistent vomiting or severe pain return to the emergency department for reevaluation. HPI General Mode of arrival: ambulatory . Date/Time Provider Initiated Documentation: 07/24/24 15:06 . Limitations to Documentation: no limitations . Information obtained by: patient . History of Present Illness 84 year old M presents to the emergency department with the chief complaint of no appetite , described as mild, Patient started experiencing this week(s) (1) and it has been constant. No relieving factors improve symptom(s), No exacerbating factors reported . Patient notes denies fever/chills and shortness of breath. Patient did receive the following treatments prior to arrival, none Related Data Home Medications ?Medication ?Instructions ?Recorded ?Confirmed omeprazole 20 mg capsule,delayed 40 mg PO DAILY AM 10/25/14 07/24/24 release albuterol sulfate 90 mcg/actuation 2 puff inhalation Q6H PRN 07/30/21 07/24/24 aerosol inhaler nitroglycerin 0.4 mg sublingual 0.4 mg sublingual Q5M PRN 07/30/21 07/24/24 tablet (Nitrostat) aspirin 81 mg tablet,delayed 81 mg PO DAILY 10/20/21 07/24/24 release calcium 500 mg (as 2 tab PO DAILY 10/20/21 07/24/24 carbonate)-vitamin D3 5 mcg (200 unit) tablet (Calcium 500 + D) tiotropium bromide 2.5 2 puff inhalation DAILY 10/20/21 07/24/24 mcg/actuation mist for inhalation trazodone 100 mg tablet 300 mg PO HS 10/20/21 07/24/24 magnesium 250 mg tablet 250 mg PO DAILY #10 tabs 06/12/22 07/24/24 atorvastatin 40 mg tablet 80 mg (2 x 40 mg) PO HS #60 tabs 12/09/22 07/24/24 alendronate 70 mg tablet 70 mg PO QWEEK 02/18/23 07/24/24 cellulose,oxidized-collagen 4.34 02/18/23 07/24/24 X 4.34 45 %-55 % bandage potassium chloride 20 mEq 20 meq PO DAILY #10 tabs 12/08/23 07/24/24 tablet,extended release ondansetron 4 mg disintegrating 4 mg PO Q8H PRN nausea and 07/24/24 tablet vomiting #30 tabs Previous Rx's ?Medication ?Instructions ?Recorded magnesium 250 mg tablet 250 mg PO DAILY #10 tabs 06/12/22 atorvastatin 40 mg tablet 80 mg (2 x 40 mg) PO HS #60 tabs 12/09/22 potassium chloride 20 mEq 20 meq PO DAILY #10 tabs 12/08/23 tablet,extended release ondansetron 4 mg disintegrating 4 mg PO Q8H PRN nausea and 07/24/24 tablet vomiting #30 tabs Allergies Allergy/AdvReac Type Severity Reaction Status Date / Time No Known Allergies Allergy Verified 07/24/24 15:01 General Stated Complaint: Abd Prob EDITH: 3 Review of Systems All systems reviewed & are unremarkable except as noted in HPI and below Constitutional Constitutional: Denies chills, Denies fever(s) and Denies weakness Cardiovascular Cardiovascular: Denies chest pain and Denies dyspnea Respiratory Respiratory: Denies cough and Denies dyspnea Gastrointestinal Gastrointestinal: Denies abdominal pain, Reports nausea and Denies vomiting Neurologic Neurologic: Denies weakness Psychiatric Psychiatric: Denies depression Exam Const General: no acute distress Orientation: alert HENMT Head: normal to inspection Ears: external ears normal General nose exam: external nose normal Mouth: moist mucous membranes Eyes General: appearance normal, both eyes and all related structures Neck Neck: normal visual inspection Resp Effort & Inspection: normal respiratory effort and able to speak in complete sentences Cardio Rate: regular rate GI Palpation: soft and nontender Skin General skin exam: no rashes or lesions noted Neuro General: patient alert and patient oriented x3 Extrem General: normal to inspection Psych Mental Status: mental status grossly normal Course Vital Signs Vital signs: Vital Signs Temperature 36.9 C 07/24/24 14:54 Pulse 82 07/24/24 14:54 Respiratory Rate 16 07/24/24 14:54 Blood Pressure 123/95 H 07/24/24 14:54 Pulse Oximetry 93 07/24/24 14:54 Temperature 36.9 C 07/24/24 14:54 Temperature Source Oral 07/24/24 14:54 Pulse 82 07/24/24 14:54 Respiratory Rate 16 07/24/24 14:54 Blood Pressure 123/95 H 07/24/24 14:54 Blood Pressure Position Sitting 07/24/24 14:54 Pulse Oximetry 93 07/24/24 14:54 Oxygen Delivery Method Room Air 07/24/24 14:54 Oxygen Flow Rate 0 07/24/24 14:54 Pain Level 5 07/24/24 14:54 Medical Decision Making 84-year-old male with a history of psoriasis, hypertension, who comes in with approximately 1 week of lack of appetite and has not been drinking or eating. He denies any abdominal pain, no chest pain, no vomiting, he does note intermittent nausea but has none now. Had a bowel movement 2 days ago and has not really been eating much over the last few days so does not feel like he has any stool to have a bowel movement. He is well-appearing speaking full sentences oriented x 3. He has a soft nontender abdomen. Unclear etiology for his lack of desire to eat or drink, given his lack of abdominal pain or tenderness on exam I doubt surgical pathology such as small bowel obstruction so I do not feel imaging of his abdomen is indicated. Will treat with IV fluids and check a CBC and CMP and reassess. Patient has a magnesium of 1.3 and a potassium of 3.4. He feels better after IV fluids and is tolerating p.o. I recommended he take magnesium supplements or increase his dietary intake of magnesium and he can try also using Ensure shakes. He will follow-up with his PCP and return precautions. He still has no abdominal tenderness on repeat exam so I do not feel imaging is indicated. Differential Diagnosis Differential Diagnosis: dehydration, electrolyte abnormality Medical Records Medical records reviewed: Yes I reviewed the patient's medical records. Lab Data Lab results reviewed: Yes I reviewed the patient's lab results. Quality:[facility] Health Related Social Needs: No Data to Display [facility] All Active Problems (Updated 07/24/24 @ 17:29 by Catracho Hylton MD) Hypomagnesemia (Acute) Elevated cholesterol (Chronic) Asbestosis (Acute) Psoriasis (Chronic) Chronic sinusitis (Acute) Cholecystitis (Acute) Lumbago (Acute) Hip pain (Acute) Cellulitis (Acute) Vertigo (Acute) Thrombosis of right vertebral artery (Acute) Bilateral carotid artery stenosis (Chronic) Lower urinary tract symptoms (LUTS) (Acute) Community acquired pneumonia (Acute) Hyponatremia (Chronic) Pancytopenia (Acute) Chest pain (Acute) Alcohol abuse (Chronic) Dizziness (Acute) Stenosis of right internal carotid artery (Acute) Peripheral vertigo of both ears (Acute) Peripheral neuropathy (Chronic) Thoracic vertebral fracture (Acute) Laceration of right thumb (Acute) Fracture of rib of left side (Chronic) Syncope (Acute) Pain (Acute) Hypertension (Chronic) COPD exacerbation (Acute) Intention tremor (Chronic) Insomnia (Acute) Wernicke encephalopathy (Acute) Pneumonia (Acute) Health insurance with Department of [employer] (Acute) DNR (do not resuscitate) (Acute) Osteomyelitis of left foot (Acute) Anemia (Chronic) B12 deficiency anemia (Acute) Acute UTI (Acute) Continuous tobacco abuse (Chronic) Left ureteral stone (Acute) Medical History Left ureteral stone Stenosis of both internal carotid arteries Orthostatic hypotension Vertigo Hx of hyperlipidemia HTN (hypertension) GERD (gastroesophageal reflux disease) Alcohol abuse Per pt. 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
[2024-07-24] MEDS: Normal Saline 1,000 ML 1000 ML IV (15:57)
[2024-07-24 16:03] LABS: Abs Immature Grans 0.01 10^3/uL (0.0-0.06); Absolute Basophil Count 0.06 10^3/uL (0.0-0.2); Absolute Eosinophil Count 0.21 10^3/uL (0.0-0.7); Absolute Lymphocyte Count 1.36 10^3/uL (1.2-3.4); Absolute Monocyte Count 0.57 10^3/uL (0.1-0.8); Basophils % 0.8 %; Eosinophils % 2.8 %; HGB 12.7 g/dL (13.5-17.5); Immature Grans % 0.1 %; Lymphocytes % 18.4 %; MCH 31.7 pg (27.0-33.0); MCHC 34.3 % (32.0-36.0); MCV 92 fL (80-95); MPV 9.5 fL (8.0-11.0); Monocytes % 7.7 %; Neutrophils % 70.2 %; Platelet Count 235 10^3/uL (130-400); RBC 4.01 10^6/uL (4.36-5.78); RDW 12.5 % (11.8-14.1); RDW-SD 42.6 fL; WBC 7.41 10^3/uL (4.4-10.8)
[2024-07-24 16:21] VITALS: BP 123/95; PULSE 82; RESP 16; TEMP 36.9; O2SAT 93
[2024-07-24 16:24] LABS: ALT 8 U/L (16-63); AST 16 U/L (15-37); Albumin 2.6 g/dL (3.4-5.0); Alkaline Phosphatase 137 U/L (46-116); Anion Gap 5.3 mmol/L (3-11); BUN 8 mg/dL (7-18); Bilirubin, Total 0.6 mg/dL (0.2-1.0); CO2 29.7 mmol/L (21.0-32.0); CREATININE 0.9 mg/dL (0.70-1.30); Calcium 9.2 mg/dL (8.5-10.1); Chloride 101 mmol/L (98-107); Estimated GFR 85.27 (mL/min/1.73m2); Glucose 100 mg/dL (74-106); Magnesium 1.3 mg/dL (1.8-2.4); Potassium 3.4 mmol/L (3.5-5.1); Sodium 136 mmol/L (136-145); Total Protein 6.7 g/dL (6.4-8.2)
[2024-07-24] MEDS: Magnesium Oxide 400 MG TAB 800 MG PO (16:48)
[2024-07-24 18:49] VITALS: BP 132/60; PULSE 85; RESP 16; O2SAT 97
== END 2024-07-24 18:52 | disposition home or self-care (01) ==
PROVIDERS: Emergency Provider Emergency Medicine; PCP Internal Medicine
DX: E83.42 Hypomagnesemia (principal); F50.89 Other specified eating disorder; I10 Essential (primary) hypertension; E78.5 Hyperlipidemia, unspecified; J44.9 Chronic obstructive pulmonary disease, unspecified; F17.210 Nicotine dependence, cigarettes, uncomplicated; F17.290 Nicotine dependence, other tobacco product, uncomplicated; Z79.82 Long term (current) use of aspirin
CPT/HCPCS: 80053; 82962; 96360; 96361; 99284; 83735; 85025; 99283

== ENCOUNTER 2024-12-02 13:03 | Emergency (ER) | payer OTHER, SELFPAY ==
[2024-12-02] VITALS (25 sets, daily range): BP systolic 114–176; BP diastolic 44–154; PULSE 69–118; RESP 11–26; TEMP 35.9; O2SAT 90–100
--- NOTE | 2024-12-02 13:00 | RT.EKG_ITS ---
APPROVED REPORT Exam: Resting ECG Reason for Exam: Weakness Patient Location: E HR:84 bpm ECG Measurements Heart Rate 84 AXIS MN 57 P 0 QRSd 89 QRS 58 QT 352 T -70 QTc 417 Conclusion Sinus rhythm, rate 84 No interval abnormalities No STEMI Diffuse T wave inversions inf/lat leads, unchanged from priors
--- NOTE | 2024-12-02 13:15 | DI.CT_ITS ---
Exam(s) CT CHEST/ABD/PEL W EXAM: CT CHEST/ABD/PEL W CLINICAL HISTORY: epigastric pain, shortness of breath, vomiting. TECHNIQUE: Imaging Protocol: Axial computed tomography images with coronal and sagittal reformatted images were created and reviewed CONTRAST MATERIAL: Intravenous: Omnipaque 350 Contrast volume:75 mL Oral: None COMPARISON: CT CT CHEST PE ABD PELVIS W from 09/05/[address] ABDOMEN PELVIS W from 12/08/2023 FINDINGS: CHEST: LUNGS: Multiple calcified pleural plaques are again noted bilaterally as well as some unchanged scarring in the lingular segment of the left lung. There are no new infiltrates nor pleural effusions. No new ominous pulmonary masses. No significant focal findings in the trachea and mainstem bronchi. No bronchiectasis.. MEDIASTINUM: There is no hilar nor mediastinal adenopathy. Visualized thyroid unremarkable. CARDIAC: Heart size is normal. There is no pericardial effusion.The diameter of the ascending thoracic aorta is upper normal. there is no evidence of dissection. there is some calcified and noncalcified plaque in the great vessels off the aortic arch. OSSEOUS: There is a healed fracture of the left 9th rib. No acute rib fractures evident. No sternal fractures. ABDOMEN: There is no ascites. LIVER: There are no focal hepatic lesions nor dilatation of intrahepatic ducts. GALLBLADDER/BILIARY: Gallbladder is contracted or surgically absent. CBD is not dilated. PANCREAS: No evidence of pancreatic mass nor dilatation of the pancreatic duct. SPLEEN: Spleen is not enlarged. There are no intrasplenic lesions. Splenic and portal veins are patent. ADRENALS: There are no significant adrenal masses. KIDNEYS: Bilateral renal cysts noted. The largest is in the superior pole the left kidney and measures 5.6 x 5.0 cm. These benign cysts do not require further imaging workup. There are no solid renal masses nor calculi. No hydronephrosis nor hydroureter.. ABDOMINAL AORTA: There is no evidence of abdominal aortic aneurysm but there is severe atherosclerotic involvement of the abdominal aorta with heavy peripheral calcification and mural thrombus. Similar findings are seen in the iliac arteries. Suspect significant bilateral iliac artery stenosis. No iliac artery aneurysms. LYMPH NODES: There is no retroperitoneal nor paraaortic adenopathy. ABDOMINAL WALL: No evidence of significant anterior abdominal wall nor inguinal hernia. GI: There is no evidence of bowel obstruction.No free air. No abscess. PELVIS: LYMPH NODES: There is no intrapelvic nor inguinal adenopathy. GI: No evidence of appendicitis.Redundant sigmoid but without evidence of significant diverticular disease. URINARY BLADDER: There is uniform thickening of the urinary bladder wall. No distinct mass nor calculi nor clots in the urinary bladder. REPRODUCTIVE: Mild prostate enlargement. Seminal vesicles unremarkable. There is a left pelvic reservoir which is peripherally calcified and partially included penile prosthesis pump. OSSEOUS: ORIF hardware again noted in the left hip as well as posterior fusion hardware in the lower lumbar spine. No acute fractures evident. Depression of superior endplate of L4 is unchanged and similar for L1 superior endplate. No acute fractures evident. IMPRESSION: 1. Multiple bilateral calcified pleural plaques are again noted. No evidence of new lung mass nor pleural effusions nor intrathoracic adenopathy. 2. Severely atherosclerotic abdominal aorta and iliac arteries. No aneurysmal dilatation. 3. Penile prosthesis again noted. 4. Left hip hardware and fusion hardware at L4-5 level in the lumbar spine again noted. Report called by myself to ER provider in 12/02/2024 at 4:30 p.m. RADIATION DOSE DELIVERED: 331.8mGy.cm Total DLP DATA REPOSITORY: All CT scans at this facility are submitted to the National Radiology Data Registry (NRDR) Dose Index Registry (DIR) with the [employer] (ACR). RADIATION OPTIMIZATION: All CT scans at this facility use at least one of these dose optimization techniques: automated exposure control; mA and/or kV adjustment per patient size (includes targeted exams where dose is matched to clinical indication); or iterative reconstruction.
[2024-12-02 14:17] LABS: Abs Immature Grans 0.02 10^3/uL (0.0-0.06); HCT 35.3 % (40.0-50.0); HGB 12.2 g/dL (13.5-17.5); Immature Grans % 0.3 %; MCH 31.9 pg (27.0-33.0); MCHC 34.6 % (32.0-36.0); MCV 92 fL (80-95); MPV 9.8 fL (8.0-11.0); Platelet Count 252 10^3/uL (130-400); RBC 3.83 10^6/uL (4.36-5.78); RDW 12.2 % (11.8-14.1); RDW-SD 41.3 fL; WBC 7.96 10^3/uL (4.4-10.8)
[2024-12-02 14:29] LABS: Magnesium 1.5 mg/dL (1.8-2.4)
--- NOTE | 2024-12-02 14:34 | W.ED.GENAD ---
Discharge Plan Discharge Details Chief Complaint: Dizzy/Sync Primary Care Provider: Brad Morrow ED Provider: Yoanna Oconnor Home Meds and New Rx's Prescriptions: No Action nitroglycerin [Nitrostat] 0.4 mg tablet, sublingual 0.4 mg Sublingual Q5M PRN Patient Comments: doesn't have chest pain Rx Instructions: for chest pain (DME) cellulose,oxidized-collagen 4.34 X 4.34 (45 %-55 %) bandage See Rx Instructions .ROUTE Rx Instructions: As directed alendronate 70 mg tablet 70 mg PO QWEEK omeprazole 20 MG capsule,delayed release(DR/EC) 40 mg PO DAILY AM Patient Comments: Pt. states that he doesn't take this medication. albuterol sulfate 90 mcg/actuation HFA aerosol inhaler 2 puff INHALATION Q6H PRN aspirin 81 mg Tablet,Delayed Release (Dr/Ec) 81 mg PO DAILY calcium carbonate-vitamin D3 [Calcium 500 + D] 500 mg-5 mcg (200 unit) Tablet 2 tab PO DAILY tiotropium bromide 2.5 mcg/actuation Mist 2 puff INHALATION DAILY trazodone 100 mg Tablet 300 mg PO HS magnesium 250 mg tablet 250 mg PO DAILY Qty: 10 0RF atorvastatin 40 mg Tablet 80 mg PO HS Qty: 60 0RF potassium chloride 20 mEq tablet extended release 20 meq PO DAILY Qty: 10 0RF ondansetron 4 mg tablet,disintegrating 4 mg PO Q8H PRN (Reason: nausea and vomiting) Qty: 30 0RF HPI General Date/Time Provider Initiated Documentation: 12/02/24 13:09. HPI Narrative: MDM/Narrative: Initial Assessment: 89-year-old male presenting for fall off tractor with back and chest soreness, difficulty breathing. No reproducible chest wall or abdominal pain. Slight skin tear on radial aspect of right forearm, abrasion over left forehead, dried blood on lips, abrasion on right mid tib-fib and above right glutes on back. ED Course: - EKG performed Disposition: - Discharge: Home, advised to return if symptoms worsen or new symptoms develop. This document was created with assistance from [employer]. The patient consented to its use. Disposition: [] HPI: [] ROS: Negative besides as mentioned above Exam: [] Rhythm: NSR Rate: [] [place]: Normal axis Intervals: Normal intervals Other findings: No acute ST segment or T wave changes to suggest acute ischemia. Labs: [] Radiology: [] Related Data Home Medications ?Medication ?Instructions ?Recorded ?Confirmed omeprazole 20 mg capsule,delayed 40 mg PO DAILY AM 10/25/14 07/24/24 release albuterol sulfate 90 mcg/actuation 2 puff inhalation Q6H PRN 07/30/21 07/24/24 aerosol inhaler nitroglycerin 0.4 mg sublingual 0.4 mg sublingual Q5M PRN 07/30/21 07/24/24 tablet (Nitrostat) aspirin 81 mg tablet,delayed 81 mg PO DAILY 10/20/21 07/24/24 release calcium 500 mg (as 2 tab PO DAILY 10/20/21 07/24/24 carbonate)-vitamin D3 5 mcg (200 unit) tablet (Calcium 500 + D) tiotropium bromide 2.5 2 puff inhalation DAILY 10/20/21 07/24/24 mcg/actuation mist for inhalation trazodone 100 mg tablet 300 mg PO HS 10/20/21 07/24/24 magnesium 250 mg tablet 250 mg PO DAILY #10 tabs 06/12/22 07/24/24 atorvastatin 40 mg tablet 80 mg (2 x 40 mg) PO HS #60 tabs 12/09/22 07/24/24 alendronate 70 mg tablet 70 mg PO QWEEK 02/18/23 07/24/24 cellulose,oxidized-collagen 4.34 02/18/23 07/24/24 X 4.34 45 %-55 % bandage potassium chloride 20 mEq 20 meq PO DAILY #10 tabs 12/08/23 07/24/24 tablet,extended release ondansetron 4 mg disintegrating 4 mg PO Q8H PRN nausea and 07/24/24 tablet vomiting #30 tabs Previous Rx's ?Medication ?Instructions ?Recorded magnesium 250 mg tablet 250 mg PO DAILY #10 tabs 06/12/22 atorvastatin 40 mg tablet 80 mg (2 x 40 mg) PO HS #60 tabs 12/09/22 potassium chloride 20 mEq 20 meq PO DAILY #10 tabs 12/08/23 tablet,extended release ondansetron 4 mg disintegrating 4 mg PO Q8H PRN nausea and 07/24/24 tablet vomiting #30 tabs Allergies Allergy/AdvReac Type Severity Reaction Status Date / Time No Known Allergies Allergy Verified 12/02/24 13:10 General Stated Complaint: Dizzy/Sync EDITH: 3 Course Vital Signs Vital signs: Vital Signs Temperature 35.9 C L 12/02/24 13:01 Pulse 86 12/02/24 13:01 Respiratory Rate 16 12/02/24 13:01 Blood Pressure 114/61 12/02/24 13:01 Pulse Oximetry 99 12/02/24 13:01 Temperature 35.9 C L 12/02/24 13:01 Temperature Source Tympanic 12/02/24 13:01 Pulse 86 12/02/24 13:01 Respiratory Rate 15 12/02/24 14:08 Respiratory Effort Normal 12/02/24 14:08 Respiratory Depth Normal 12/02/24 14:08 Respiratory Pattern Normal 12/02/24 14:08 Blood Pressure 114/61 12/02/24 13:01 Pulse Oximetry 99 12/02/24 13:01 Oxygen Delivery Method Room Air 12/02/24 13:01 Oxygen Flow Rate 0 12/02/24 13:01 Pain Level 0 12/02/24 13:01 Lab/Test Results Lab/Test Results: Laboratory Tests Range/Units 12/02/24 14:06 WBC (4.4-10.8) 10^3/uL 7.96 RBC (4.36-5.78) 10^6/uL 3.83 L Hgb (13.5-17.5) g/dL 12.2 L Hct (40.0-50.0) % 35.3 L MCV (80-95) fL 92 MCH (27.0-33.0) pg 31.9 MCHC (32.0-36.0) % 34.6 RDW (11.8-14.1) % 12.2 Plt Count (130-400) 10^3/uL 252 MPV (8.0-11.0) fL 9.8 Immature Gran % % 0.3 Neutrophils % % 75.9 Lymphocytes % % 12.4 Monocytes % % 8.3 Eosinophils % % 2.3 Basophils % % 0.8 Nucleated RBC % (0.0-0.3) % 0.0 Absolute Neutrophils (1.2-6.7) 10^3/uL 6.05 Absolute Lymphocytes (1.2-3.4) 10^3/uL 0.99 L Absolute Monocytes (0.1-0.8) 10^3/uL 0.66 Absolute Eosinophils (0.0-0.7) 10^3/uL 0.18 Absolute Basophils (0.0-0.2) 10^3/uL 0.06 Magnesium (1.8-2.4) mg/dL 1.5 L PFSH All Active Problems (Updated 08/24/24 @ 00:03 by ALVIN CANCINO) Elevated cholesterol (Chronic) Asbestosis (Acute) Psoriasis (Chronic) Chronic sinusitis (Acute) Cholecystitis (Acute) Lumbago (Acute) Hip pain (Acute) Cellulitis (Acute) Vertigo (Acute) Thrombosis of right vertebral artery (Acute) Bilateral carotid artery stenosis (Chronic) Lower urinary tract symptoms (LUTS) (Acute) Community acquired pneumonia (Acute) Hyponatremia (Chronic) Pancytopenia (Acute) Chest pain (Acute) Alcohol abuse (Chronic) Dizziness (Acute) Stenosis of right internal carotid artery (Acute) Peripheral vertigo of both ears (Acute) Peripheral neuropathy (Chronic) Thoracic vertebral fracture (Acute) Laceration of right thumb (Acute) Fracture of rib of left side (Chronic) Syncope (Acute) Pain (Acute) Hypertension (Chronic) COPD exacerbation (Acute) Intention tremor (Chronic) Insomnia (Acute) Wernicke encephalopathy (Acute) Pneumonia (Acute) Health insurance with [facility] (Acute) DNR (do not resuscitate) (Acute) Osteomyelitis of left foot (Acute) Anemia (Chronic) B12 deficiency anemia (Acute) Acute UTI (Acute) Continuous tobacco abuse (Chronic) Left ureteral stone (Acute) Medical History Left ureteral stone Stenosis of both internal carotid arteries Orthostatic hypotension Vertigo Hx of hyperlipidemia HTN (hypertension) GERD (gastroesophageal reflux disease) Alcohol abuse Per pt. 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
[2024-12-02 14:35] LABS: ALT 9 U/L (16-63); AST 12 U/L (15-37); Albumin 2.5 g/dL (3.4-5.0); Alkaline Phosphatase 137 U/L (46-116); Anion Gap 6.5 mmol/L (3-11); BUN 9 mg/dL (7-18); Bilirubin, Total 0.9 mg/dL (0.2-1.0); CO2 28.5 mmol/L (21.0-32.0); Calcium 9.4 mg/dL (8.5-10.1); Chloride 101 mmol/L (98-107); Estimated GFR 85.27 (mL/min/1.73m2); Glucose 107 mg/dL (74-106); Lipase 28 U/L (<78); Potassium 3.9 mmol/L (3.5-5.1); Sodium 136 mmol/L (136-145); Total Protein 6.5 g/dL (6.4-8.2); Troponin I 15 ng/L (<or=76)
[2024-12-02] MEDS: Normal Saline - Diluent 50 ML VIAL IJ (15:23)
[2024-12-02] MEDS: Omnipaque 350 MG/ML 100 ML BTL IJ (15:24)
[2024-12-02] MEDS: Normal Saline Flush 10 ML SYR IVP (15:24)
--- NOTE | 2024-12-02 15:25 | W.ED.GENAD ---
Discharge Plan Disposition Patient Disposition: Home Condition: Improving Discharge Details Clinical Impression: Abdominal pain, Nausea & vomiting, Hypomagnesemia Primary Care Provider: Brad Morrow ED Provider: Ray Torres Home Meds and New Rx's Prescriptions: Continued nitroglycerin [Nitrostat] 0.4 mg tablet, sublingual 0.4 mg Sublingual Q5M PRN Patient Comments: doesn't have chest pain Rx Instructions: for chest pain (DME) cellulose,oxidized-collagen 4.34 X 4.34 (45 %-55 %) bandage See Rx Instructions .ROUTE Rx Instructions: As directed alendronate 70 mg tablet 70 mg PO QWEEK omeprazole 20 MG capsule,delayed release(DR/EC) 40 mg PO DAILY AM Patient Comments: Pt. states that he doesn't take this medication. albuterol sulfate 90 mcg/actuation HFA aerosol inhaler 2 puff INHALATION Q6H PRN aspirin 81 mg Tablet,Delayed Release (Dr/Ec) 81 mg PO DAILY calcium carbonate-vitamin D3 [Calcium 500 + D] 500 mg-5 mcg (200 unit) Tablet 2 tab PO DAILY tiotropium bromide 2.5 mcg/actuation Mist 2 puff INHALATION DAILY trazodone 100 mg Tablet 300 mg PO HS magnesium 250 mg tablet 250 mg PO DAILY Qty: 10 0RF atorvastatin 40 mg Tablet 80 mg PO HS Qty: 60 0RF potassium chloride 20 mEq tablet extended release 20 meq PO DAILY Qty: 10 0RF ondansetron 4 mg tablet,disintegrating 4 mg PO Q8H PRN (Reason: nausea and vomiting) Qty: 30 0RF Discharge Instructions Instructions: Abdominal Pain, Adult ED, Nausea and vomiting in adults, Hypomagnesemia Additional Instructions: Your workup including laboratory values and CT imaging does not reveal any obvious emergent process. Your magnesium was replenished here in the ER. This will need to be followed through your primary care provider, if it stays low you may need to be on additional supplementation. I provided a prescription for Zofran for your nausea, I will not provide Compazine as it made you feel very jittery here in the ER. Please watch for new or worsening symptoms and return immediately to the ER. Otherwise for your ongoing abdominal pain, nausea, vomiting, weight loss, it is imperative that you contact both your primary care provider and surgical team at the [facility] tomorrow to discuss your ongoing symptoms and the need for outpatient reevaluation. Again, please watch for any new or worsening symptoms and return immediately to the ER. Discharge Data Discharge Date/Time-TO BE ENTERED AT DEPARTURE: 12/02/24 18:28 HPI <ALYSSA Gomes - Last Filed: 12/06/24 08:15> General Date/Time Provider Initiated Documentation: 12/02/24 13:09. HPI Narrative: This 84-year-old male presents with nausea several episodes of vomiting and feeling weak and lightheaded for the past 7 days. He states when he eats he typically vomits. He also states has had a cough for the past 3 weeks. He has had approximately a 20 pound unintentional weight loss since a endoscopy and colonoscopy was done 2 months ago he states he weighed 156 at the time and now is down to 125. He states this is unintentional weight loss secondary to his nausea and vomiting. He denies known history of cancer. No longer consuming alcohol Related Data Home Medications ?Medication ?Instructions ?Recorded ?Confirmed omeprazole 20 mg capsule,delayed 40 mg PO DAILY AM 10/25/14 07/24/24 release albuterol sulfate 90 mcg/actuation 2 puff inhalation Q6H PRN 07/30/21 07/24/24 aerosol inhaler nitroglycerin 0.4 mg sublingual 0.4 mg sublingual Q5M PRN 07/30/21 07/24/24 tablet (Nitrostat) aspirin 81 mg tablet,delayed 81 mg PO DAILY 10/20/21 07/24/24 release calcium 500 mg (as 2 tab PO DAILY 10/20/21 07/24/24 carbonate)-vitamin D3 5 mcg (200 unit) tablet (Calcium 500 + D) tiotropium bromide 2.5 2 puff inhalation DAILY 10/20/21 07/24/24 mcg/actuation mist for inhalation trazodone 100 mg tablet 300 mg PO HS 10/20/21 07/24/24 magnesium 250 mg tablet 250 mg PO DAILY #10 tabs 06/12/22 07/24/24 atorvastatin 40 mg tablet 80 mg (2 x 40 mg) PO HS #60 tabs 12/09/22 07/24/24 alendronate 70 mg tablet 70 mg PO QWEEK 02/18/23 07/24/24 cellulose,oxidized-collagen 4.34 02/18/23 07/24/24 X 4.34 45 %-55 % bandage potassium chloride 20 mEq 20 meq PO DAILY #10 tabs 12/08/23 07/24/24 tablet,extended release ondansetron 4 mg disintegrating 4 mg PO Q8H PRN nausea and 07/24/24 tablet vomiting #30 tabs Previous Rx's ?Medication ?Instructions ?Recorded magnesium 250 mg tablet 250 mg PO DAILY #10 tabs 06/12/22 atorvastatin 40 mg tablet 80 mg (2 x 40 mg) PO HS #60 tabs 12/09/22 potassium chloride 20 mEq 20 meq PO DAILY #10 tabs 12/08/23 tablet,extended release ondansetron 4 mg disintegrating 4 mg PO Q8H PRN nausea and 07/24/24 tablet vomiting #30 tabs Allergies Allergy/AdvReac Type Severity Reaction Status Date / Time No Known Allergies Allergy Verified 12/02/24 13:10 General Stated Complaint: Dizzy/Sync EDITH: 3 Exam <ALYSSA Gomes - Last Filed: 12/06/24 08:15> Narrative Exam Narrative: Alert and oriented chronically ill-appearing gentleman who is in no acute distress he has a below the knee amputation on the left his abdomen is tender mildly distended he is not actively vomiting cardiac rate rhythm is regular his right knee has a superficial burn that is old per patient. Lungs are clear to auscultation, right lower extremity with DP and PT pulses via Doppler Course <ALYSSA Gomes Last Filed: 12/06/24 08:15> Vital Signs Vital signs: Vital Signs Temperature 35.9 C L 12/02/24 13:01 Pulse 86 12/02/24 13:01 Respiratory Rate 16 12/02/24 13:01 Blood Pressure 114/61 12/02/24 13:01 Pulse Oximetry 99 12/02/24 13:01 Temperature 35.9 C L 12/02/24 13:01 Temperature Source Tympanic 12/02/24 13:01 Pulse 86 12/02/24 13:01 Respiratory Rate 15 12/02/24 14:08 Respiratory Effort Normal 12/02/24 14:08 Respiratory Depth Normal 12/02/24 14:08 Respiratory Pattern Normal 12/02/24 14:08 Blood Pressure 114/61 12/02/24 13:01 Pulse Oximetry 99 12/02/24 13:01 Oxygen Delivery Method Room Air 12/02/24 13:01 Oxygen Flow Rate 0 12/02/24 13:01 Pain Level 0 12/02/24 13:01 Lab/Test Results Lab/Test Results: Laboratory Tests Range/Units 12/02/24 14:06 WBC (4.4-10.8) 10^3/uL 7.96 RBC (4.36-5.78) 10^6/uL 3.83 L Hgb (13.5-17.5) g/dL 12.2 L Hct (40.0-50.0) % 35.3 L MCV (80-95) fL 92 MCH (27.0-33.0) pg 31.9 MCHC (32.0-36.0) % 34.6 RDW (11.8-14.1) % 12.2 Plt Count (130-400) 10^3/uL 252 MPV (8.0-11.0) fL 9.8 Immature Gran % % 0.3 Neutrophils % % 75.9 Lymphocytes % % 12.4 Monocytes % % 8.3 Eosinophils % % 2.3 Basophils % % 0.8 Nucleated RBC % (0.0-0.3) % 0.0 Absolute Neutrophils (1.2-6.7) 10^3/uL 6.05 Absolute Lymphocytes (1.2-3.4) 10^3/uL 0.99 L Absolute Monocytes (0.1-0.8) 10^3/uL 0.66 Absolute Eosinophils (0.0-0.7) 10^3/uL 0.18 Absolute Basophils (0.0-0.2) 10^3/uL 0.06 Sodium (136-145) mmol/L 136 Potassium (3.5-5.1) mmol/L 3.9 Chloride (98-107) mmol/L 101 Carbon Dioxide (21.0-32.0) mmol/L 28.5 Anion Gap (3-11) mmol/L 6.5 BUN (7-18) mg/dL 9 Creatinine (0.70-1.30) mg/dL 0.9 Est GFR (CKD-EPI 2020) (mL/min/1.73m2) 85.27 Glucose (74-106) mg/dL 107 H Calcium (8.5-10.1) mg/dL 9.4 Magnesium (1.8-2.4) mg/dL 1.5 L Total Bilirubin (0.2-1.0) mg/dL 0.9 AST (15-37) U/L 12 L ALT (16-63) U/L 9 L Alkaline Phosphatase (46-116) U/L 137 H Troponin I (<or=76) ng/L 15 Total Protein (6.4-8.2) g/dL 6.5 Albumin (3.4-5.0) g/dL 2.5 L Lipase (<78) U/L 28 Medical Decision Making <ALYSSA Gomes - Last Filed: 12/06/24 08:15> Results: CBC without acute abnormality, chemistry with hypomagnesemia at 1.5 hemoglobin and hematocrit are stable for patient Assessment and plan: Patient will receive magnesium 1 g IV, Compazine for nausea and vomiting 5 mg, 500 cc bolus of fluid, CT abdomen and pelvis. EKG without QTc prolongation and baseline T wave changes which is unchanged. Patient pending CT abdomen pelvis interpretation and review. If CT abdomen and pelvis contrast does not show acute abnormality patient will need p.o. challenge and reassessment for disposition purposes. <ALYSSA Bernal - Last Filed: 12/02/24 18:56> Results: CBC without acute abnormality, chemistry with hypomagnesemia at 1.5 hemoglobin and hematocrit are stable for patient Assessment and plan: Patient will receive magnesium 1 g IV, Compazine for nausea and vomiting 5 mg, 500 cc bolus of fluid, CT abdomen and pelvis. EKG without QTc prolongation and baseline T wave changes which is unchanged. Patient pending CT abdomen pelvis interpretation and review. If CT abdomen and pelvis contrast does not show acute abnormality patient will need p.o. challenge and reassessment for disposition purposes. Ray Torres PA-C : I assumed care of this patient from my colleague ALYSSA Oconnor at approximately 1600. The patient is currently receiving IV fluid and magnesium, did receive Compazine as well. Upon return from CT he states feeling shaky. He did tell the nurse that he had some chest pain as well; however, upon further questioning he states that this is the same chest pain that he has been having from his abdomen and it seems to move upward towards the epigastric region. He denies any new chest pain whatsoever. He has had previous CTs with contrast and has never had a reaction. He continues to feel shaky and feels like this is likely secondary to the Compazine. Will obtain EKG although low suspicion for ACS. Will also obtain a 1 hour time to troponin. Troponin at 1506 remained stable at 15. Lastly will provide IV Benadryl 25 mg. EKG at 1606, likely motion artifact over A-fib. Ventricular rate of 87. No STEMI. No dynamic changes when compared to prior EKG. Please see official report by Dr. Stern. Upon reevaluation folder machine adjuster reveals heart rate in the 80s appears to be in sinus rhythm. Patient is resting, sleeping comfortably. Chest abdomen pelvis CT with contrast: IMPRESSION: 1. Multiple bilateral calcified pleural plaques are again noted. No evidence of new lung mass nor pleural effusions nor intrathoracic adenopathy. 2. Severely atherosclerotic abdominal aorta and iliac arteries. No aneurysmal dilatation. 3. Penile prosthesis again noted. 4. Left hip hardware and fusion hardware at L4-5 level in the lumbar spine again noted. Magnesium and fluid still infusing. Will attempt a p.o. challenge. Awaiting delta troponin. All medications infused. Upon reassessment patient has tolerated p.o. intake without difficulty. Delta troponin of 17, stable. Not clinically chest pain. The shaky feeling he had previously has resolved completely with the IV Benadryl. Abdomen is soft, nontender, normal bowel sounds throughout. Discussed his overall evaluation and workup including disposition. Given his age, multiple, abilities, and ongoing symptoms, discussed the importance of proper [facility]. Call them tomorrow to set up appropriate follow-up. He was encouraged to watch for new or worsening symptoms and return immediately to the ER. Patient does have a below the knee amputation on the left, does not have his prosthesis here in the ER, and tells me that he is primarily wheelchair-bound. He does not have his wheelchair either. Would not be able to get into his house safely with a RCT ride, we will set him up with a ambulance transport home. He feels comfortable being discharged home in his current condition. Given his reaction to Compazine, we will provide a limited prescription of Zofran for his nausea. No vomiting while under my care. Standard discharge and return precautions were provided. Patient understands, is agreeable to this plan, and has no additional questions or concerns upon discharge. This documentation was generated using [employer] dictation system, please disregard any oddities of phrase or misspellings. PFSH <ALYSSA Gomes - Last Filed: 12/06/24 08:15> All Active Problems (Updated 12/02/24 @ 18:01 by ALYSSA Bernal) Hypomagnesemia (Acute) Nausea & vomiting (Acute) Abdominal pain (Acute) Elevated cholesterol (Chronic) Asbestosis (Acute) Psoriasis (Chronic) Chronic sinusitis (Acute) Cholecystitis (Acute) Lumbago (Acute) Hip pain (Acute) Cellulitis (Acute) Vertigo (Acute) Thrombosis of right vertebral artery (Acute) Bilateral carotid artery stenosis (Chronic) Lower urinary tract symptoms (LUTS) (Acute) Community acquired pneumonia (Acute) Hyponatremia (Chronic) Pancytopenia (Acute) Chest pain (Acute) Alcohol abuse (Chronic) Dizziness (Acute) Stenosis of right internal carotid artery (Acute) Peripheral vertigo of both ears (Acute) Peripheral neuropathy (Chronic) Thoracic vertebral fracture (Acute) Laceration of right thumb (Acute) Fracture of rib of left side (Chronic) Syncope (Acute) Pain (Acute) Hypertension (Chronic) COPD exacerbation (Acute) Intention tremor (Chronic) Insomnia (Acute) Wernicke encephalopathy (Acute) Pneumonia (Acute) Health insurance with [facility] (Acute) DNR (do not resuscitate) (Acute) Osteomyelitis of left foot (Acute) Anemia (Chronic) B12 deficiency anemia (Acute) Acute UTI (Acute) Continuous tobacco abuse (Chronic) Left ureteral stone (Acute) Medical History Left ureteral stone Stenosis of both internal carotid arteries Orthostatic hypotension Vertigo Hx of hyperlipidemia HTN (hypertension) GERD (gastroesophageal reflux disease) Alcohol abuse Per pt. 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
[2024-12-02] MEDS: MAGNESIUM SULFATE 1 GM/100 ML BAG IV_INF (15:39)
[2024-12-02] MEDS: Prochlorperazine 10 MG/2 ML VIAL 5 MG IVP (15:39)
[2024-12-02] MEDS: Normal Saline 500 ML IV (15:40)
--- NOTE | 2024-12-02 16:00 | RT.EKG_ITS ---
APPROVED REPORT Exam: Resting ECG Reason for Exam: chest pain Patient Location: E HR:87 bpm ECG Measurements Heart Rate 87 AXIS OR [id number] P [id number] QRSd 94 QRS 60 QT 403 T -30 QTc 486 Conclusion Atrial fibrillation vs tremors, rate 87 No STEMI T wave inversion as noted on priors
[2024-12-02] MEDS: diphenhydrAMINE 50 MG/ML VIAL 25 MG IVP (16:17)
[2024-12-02 16:28] LABS: TSH (W/Ref FT4) 0.70 uIU/mL (0.36-3.74)
[2024-12-02 16:44] LABS: Troponin I 15 ng/L (<or=76)
[2024-12-02 17:55] LABS: Troponin I 17 ng/L (<or=76)
[2024-12-02 18:01] LABS: Glucose Negative (Negative)
[2024-12-02 18:07] LABS: C & S Indicated? No; WBC Negative HPF (0-5)
== END 2024-12-02 18:28 | disposition home or self-care (01) ==
PROVIDERS: Physician Assistant; Emergency Provider Physician Assistant; PCP Internal Medicine
DX: R10.9 Unspecified abdominal pain (principal); R11.2 Nausea with vomiting, unspecified; E83.42 Hypomagnesemia
CPT/HCPCS: 36415; 96375; 74177; 80053; 83690; 87637; 93005; 96365; 99285; 71260; 81003; 81015; 83735; 84443; 84484; 85025; 93010; 99284; J0780; J1200; J3475; J3490